=== PATIENT | female | born 1980 | race Caucasian/White ===

== ENCOUNTER 2016-03-31 18:48 | Emergency (ER) | payer OTHER ==
[2016-03-31] MEDS ORDERED: diazePAM 5 MG TABLET PO STA (20:42)
[2016-03-31] MEDS ORDERED: diazePAM 5 MG TABLET PO ONE (20:47)
== END 2016-03-31 20:55 | disposition home or self-care (01) ==
DX: S81.812A Laceration without foreign body, left lower leg, initial encounter (principal); M54.5 Low back pain; W08.XXXA Fall from other furniture, initial encounter; Y93.89 Activity, other specified; Z86.718 Personal history of other venous thrombosis and embolism; Z87.891 Personal history of nicotine dependence
CPT/HCPCS: 12002; 99283; A9270

== ENCOUNTER 2016-04-08 09:44 | Outpatient (CLI) | payer OTHER ==
[2016-04-08] MEDS ORDERED: IOPAMIDOL-300 100 ML VIAL IVP ONE (10:36)
== END 2016-04-08 09:45 | disposition home or self-care (01) ==
DX: R31.9 Hematuria, unspecified (principal); R93.41 Abnormal radiologic findings on diagnostic imaging of renal pelvis, ureter, or bladder
CPT/HCPCS: 74178; Q9967

== ENCOUNTER 2016-04-11 | Outpatient (CLI) | payer OTHER | END 2016-04-11 19:52 | disposition critical access hospital (66) | CPT/HCPCS: A0425; A0429 ==

== ENCOUNTER 2016-04-11 20:04 | Emergency (ER) | payer OTHER ==
[2016-04-11] MEDS ORDERED: LIDOCAINE 1% 50 ML MDV SUBQ STA (20:45)
[2016-04-11] MEDS ORDERED: LIDOCAINE-MPF 1% 5 ML VIAL ONE (20:48)
[2016-04-11] MEDS ORDERED: ONDANSETRON 4 MG/2 ML VIAL IVP STA (21:33)
[2016-04-11] MEDS ORDERED: ONDANSETRON 4 MG/2 ML VIAL ONE (21:56)
[2016-04-11] MEDS ORDERED: IOPAMIDOL-300 100 ML VIAL IVP ONE (22:03)
[2016-04-11] MEDS ORDERED: PROMETHAZINE INJ 12.5 MG in SODIUM CHLORIDE 0.9% 50 ML IV STA (23:46)
[2016-04-11] MEDS ORDERED: HYDROmorphone 1 MG/ML SYRINGE IVP STA (23:46)
[2016-04-11] MEDS ORDERED: HYDROmorphone 1 MG/ML SYRINGE ONE (23:51)
[2016-04-11] MEDS ORDERED: PROMETHAZINE 25 MG/1 ML VIAL ONE (23:51)
== END 2016-04-12 00:50 | disposition home or self-care (01) ==
DX: S51.811A Laceration without foreign body of right forearm, initial encounter (principal); W19.XXXA Unspecified fall, initial encounter; Y92.009 Unspecified place in unspecified non-institutional (private) residence as the place of occurrence of the external cause; Z87.891 Personal history of nicotine dependence; R55 Syncope and collapse; S00.03XA Contusion of scalp, initial encounter; Z86.718 Personal history of other venous thrombosis and embolism; R10.12 Left upper quadrant pain
CPT/HCPCS: 12001; 36415; 70450; 71020; 72125; 74177; 80053; 80320; 83690; 84484; 84702; 85025; 93005; 93010; 96365; 96375; 99284; 99285; J1170; Q9967

== ENCOUNTER 2016-05-05 10:48 | Outpatient (CLI) | payer OTHER | END 2016-05-05 10:49 | disposition home or self-care (01) | DX: R30.0 Dysuria (principal) ==

== ENCOUNTER 2016-05-31 19:15 | Emergency (ER) | payer OTHER ==
[2016-05-31] MEDS ORDERED: ONDANSETRON 4 MG/2 ML VIAL IVP STA ×2 (19:39→21:00)
[2016-05-31] MEDS ORDERED: SODIUM CHLORIDE 0.9% 1,000 ML IV ONE ×2 (19:39→19:50)
[2016-05-31] MEDS ORDERED: HYDROmorphone 1 MG/ML SYRINGE IVP STA ×3 (19:39→20:37)
[2016-05-31] MEDS ORDERED: HYDROmorphone 1 MG/ML SYRINGE ONE ×2 (19:50→20:39)
[2016-05-31] MEDS ORDERED: ONDANSETRON 4 MG/2 ML VIAL ONE ×2 (19:50→20:50)
[2016-05-31] MEDS ORDERED: IOPAMIDOL-300 100 ML VIAL IVP ONE (20:16)
[2016-05-31] MEDS ORDERED: KETOROLAC 60 MG/2 ML VIAL IVP STA ×2 (20:37)
[2016-05-31] MEDS ORDERED: KETOROLAC 30 MG/ML VIAL ONE (20:39)
[2016-05-31] MEDS ORDERED: LORazepam 2 MG/ML SYRINGE IVP STA (21:00)
[2016-05-31] MEDS ORDERED: LORazepam 2 MG/ML SYRINGE ONE (21:01)
[2016-05-31] MEDS ORDERED: LIDOCAINE PATCH 5% TOP STA (21:44)
[2016-05-31] MEDS ORDERED: LIDOCAINE PATCH 5% TOP ONE (21:46)
[2016-05-31] MEDS ORDERED: PROMETHAZINE INJ 25 MG in SODIUM CHLORIDE 0.9% 50 ML IV STA (21:52)
[2016-05-31] MEDS ORDERED: PROMETHAZINE 25 MG/1 ML VIAL ONE (21:55)
== END 2016-05-31 22:42 | disposition home or self-care (01) ==
DX: R07.9 Chest pain, unspecified (principal); M54.5 Low back pain; R10.9 Unspecified abdominal pain; Z96.0 Presence of urogenital implants; Z86.718 Personal history of other venous thrombosis and embolism; M79.7 Fibromyalgia; K21.9 Gastro-esophageal reflux disease without esophagitis; Z87.891 Personal history of nicotine dependence; R03.0 Elevated blood-pressure reading, without diagnosis of hypertension
CPT/HCPCS: 71275; 76705; 80053; 81003; 81025; 83690; 84484; 85025; 93005; 93010; 96361; 96365; 96375; 96376; 99284; 99285; A9270; J1170; J2060; Q9967

== ENCOUNTER 2016-08-30 19:26 | Emergency (ER) | payer OTHER ==
[2016-08-30] MEDS ORDERED: ONDANSETRON 4 MG/2 ML VIAL IVP STA (20:16)
[2016-08-30] MEDS ORDERED: SODIUM CHLORIDE 0.9% 1,000 ML IV ONE (20:16)
[2016-08-30 20:28] LABS: BASOPHILS % (AUTO) 0.3 %; EOSINOPHILS # (AUTO) 0.2 10^3/uL (0.0-0.7); HCT - HEMATOCRIT 41.9 % (37.0-47.0); HGB - HEMOGLOBIN 14.4 g/dL (12.0-16.0); LYMPHOCYTES # (AUTO) 2.6 10^3/uL (1.5-3.5); LYMPHOCYTES % (AUTO) 48.3 %; MEAN CORPUSCULAR HGB CONC 34.3 g/dL (32.0-36.0); MEAN CORPUSCULAR VOLUME 84.5 fL (81.0-99.0); MEAN PLATELET VOLUME 7.7 fL (7.9-10.8); MONOCYTES # (AUTO) 0.3 10^3/uL (0.0-1.0); MONOCYTES % (AUTO) 6.2 %; NEUTROPHILS # (AUTO) 2.3 10^3/uL (1.5-6.6); NEUTROPHILS % (AUTO) 42.2 %; NUCLEATED RED BLOOD CELLS AUTO 0.1 /100WBC; RED BLOOD COUNT 4.95 10^6/uL (4.20-5.40); RED CELL DISTRIBUTION WIDTH 12.6 % (12.0-15.0); UNCORRECTED WHITE BLOOD COUNT 5.4 x10^3/uL; WHITE BLOOD COUNT 5.4 x10^3/uL (4.8-10.8)
[2016-08-30 20:38] LABS: ALBUMIN/GLOBULIN RATIO 1.5 (1.0-2.2); BILIRUBIN,TOTAL 0.4 mg/dL (0.2-1.0); CALCIUM 9.8 mg/dL (8.5-10.3); CREATININE 0.6 mg/dL (0.4-1.0); POTASSIUM 4.1 mmol/L (3.5-5.0); TOTAL PROTEIN 7.9 g/dL (6.7-8.2)
[2016-08-30 20:40] LABS: BILIRUBIN,URINE NEGATIVE (NEGATIVE); PH,URINE 5.5 PH (5.0-7.5)
[2016-08-30 20:42] LABS: UA w/ MICROSCOPIC CHARGE YES
[2016-08-30 20:54] LABS: WBC,URINE 0-3 /HPF (0-5)
[2016-08-30 20:55] LABS: UR CULTURE IF IND INDICATED
--- NOTE | 2016-08-30 21:21 | XRAY Preliminary Report ---
Exam: XR Pelvis 1 View IMPRESSION: Neurostimulator on the right. [facility] SITE ID: [id number]
--- NOTE | 2016-08-30 21:23 | XRAY Report ---
EXAM: PELVIS RADIOGRAPHY EXAM DATE: 08/30/2016 09:07 PM. CLINICAL HISTORY: Pain where battery is implanted for stimulator. COMPARISON: None. TECHNIQUE: 1 view. FINDINGS: Bones: Normal. No fracture or bone lesion. Joints: The visualized hip, pubis symphysis, and sacroiliac joints are preserved. No subluxation. Soft Tissues: Neurostimulator projects over the right buttock and iliac crest, with intact lead exten ding to the L5 S1 level, with tip in the right lower sacrum. IMPRESSION: Neurostimulator on the right. [facility] Referring Provider Line: [phone] SITE ID: [id number]
[2016-08-30] MEDS ORDERED: CEPHALEXIN 250 MG CAPSULE PO STA (21:28)
[2016-08-30] MEDS ORDERED: KETOROLAC 15 MG/ML VIAL IVP STA (21:28)
[2016-08-30] MEDS ORDERED: PROMETHAZINE INJ 25 MG in SODIUM CHLORIDE 0.9% 50 ML IV STA (21:30)
--- NOTE | 2016-08-30 21:32 | ED Physician Documentation ---
PD HPI FEMALE - Stated complaint Stated Complaint: FEVER/VOMITING - Chief complaint Chief Complaint: Abd Pain - History obtained from History obtained from: Patient, Family - History of Present Illness Timing - onset: Yesterday Timing - details: Gradual onset, Still present Associated symptoms: Abdominal pain, Back pain, Dysuria Similar symptoms before: Work up / diagnostics, Treatment, Follow up Recently seen: Clinic - Additional information Additional information: Patient is a 35 year old female with multiple er visits and multiple co- morbidities who is presenting to the emergency for left sided flank pain and dysuria. patient states that she say her primary who diagnosed her with a uti and started the patient on macrobid. patient states that her symptoms have progressed and she now has flank pain. Patient states she took 1500mg of tylenol for pain with little relief. Review of Systems Constitutional: reports: Chills, Myalgias. denies: Fever Eyes: denies: Photophobia Ears: denies: Ear pain, Drainage/discharge Nose: denies: Rhinorrhea / runny nose, Congestion Throat: denies: Sore throat Respiratory: denies: Cough, Wheezing GI: reports: Abdominal Pain, Nausea, Vomiting : reports: Dysuria, Frequency Musculoskeletal: reports: Back pain. 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 : Chronic bladder infection, Kidney stones HEENT: None Psych: Depression, Bipolar disorder Musculoskeletal: Fibromyalgia, Chronic back pain Derm: None - Past Surgical History Past Surgical History: Yes Ortho: Other /GLUER AND WEDGER: section, Hysterectomy, Other HEENT: Tonsil/Adenoidectomy - Present Medications Home Medications: Ambulatory Orders Medication Instructions Recorded Confirmed Lamotrigine [Lamictal] 150 mg PO BID 11/04/12 05/25/16 Alprazolam [Xanax] 1 - 2 mg PO QPM PRN 10/29/14 05/25/16 Pregabalin [Lyrica] 225 mg PO BID 04/04/15 05/25/16 Esomeprazole Magnesium [Nexium] 40 mg ORAL DAILY 02/19/16 05/25/16 Modafinil 200 mg PO DAILY 05/25/16 05/25/16 Acetaminophen [Tylenol] 650 mg PO Q4HR PRN #0 tablet 05/26/16 Ciprofloxacin [Cipro] 500 mg PO BID 5 Days 05/26/16 Fluconazole 150 mg PO DAILY #2 tablet 05/26/16 HYDROmorphone [Dilaudid] 2 mg PO Q6HR PRN #10 tablet 05/26/16 Ketorolac [Toradol] 10 mg PO Q6H PRN 4 Days 05/26/16 Ondansetron Odt [Zofran Odt] 4 mg TL Q6HR PRN #10 tablet 05/26/16 Pregabalin [Lyrica] 25 mg PO BID capsule 05/26/16 Pregabalin [Lyrica] 200 mg PO BID capsule 05/26/16 Vitamin [Trinatal Rx 1] 1 tab PO DAILY tablet 05/26/16 Lidocaine Patch 5% [Lidoderm Patch] 1 each TOP DAILY #10 patch 05/31/16 Meloxicam [Mobic] 7.5 mg PO BIDWM PRN #15 tablet 05/31/16 Cephalexin [Keflex] 500 mg PO TID #21 capsule 08/30/16 - Allergies Allergies/Adverse Reactions: Allergies Allergy/AdvReac Type Severity Reaction Status Date / Time amoxicillin trihydrate * Allergy Nausea Verified 08/30/16 19:36 [From Augmentin] azithromycin [From Zithromax] Allergy Anaphylaxis Verified 08/30/16 19:36 codeine [Codeine] Allergy Itching Verified 08/30/16 19:36 levofloxacin [From Levaquin] Allergy vomiting Verified 08/30/16 19:36 potassium clavulanate * Allergy Nausea Verified 08/30/16 19:36 [From Augmentin] Sulfa (Sulfonamide Allergy Itching Verified 08/30/16 19:36 Antibiotics) bactrim AdvReac Rash Uncoded 08/30/16 19:36 - Social History Does the pt smoke?: No Smoking Status: Former smoker Does the pt drink ETOH?: Yes Does the pt have substance abuse?: No - Immunizations Immunizations are current?: Yes - POLST Patient has POLST: No PD ED PE NORMAL - Vitals Vital signs reviewed: Yes - General General: Alert and oriented X 3, No acute distress, Well developed/nourished - HEENT HEENT: Atraumatic, PERRL - Neck Neck: Supple, no meningeal sign - Cardiac Cardiac: No murmur - Respiratory Respiratory: No respiratory distress, Clear bilaterally - Abdomen Abdomen: Soft, Non distended - Derm Derm: Normal color, Warm and dry, No rash - Extremities Extremities: No deformity, No tenderness to palpate - Neuro Neuro: Alert and oriented X 3, No motor deficit, No sensory deficit, Normal speech - Psych Psych: Normal mood, Normal affect PD ED PE EXPANDED - Back Back: CVA TTP left, Other (surgical scar over right lower lateral back from device implantation, no signs of acute infection) Results - Vitals Vitals: Vital Signs - 24 hr 08/30/16 08/30/16 19:34 21:48 Temperature 36.5 C 36.7 C Heart Rate 111 H 98 Respiratory 20 18 Rate Blood Pressure 140/96 H 128/85 H O2 Saturation 97 95 Oxygen O2 Source Room air - Labs Labs: Laboratory Tests 08/30/16 08/30/16 08/30/16 19:55 20:12 20:12 WBC 5.4 RBC 4.95 Hgb 14.4 Hct 41.9 MCV 84.5 MCH 29.0 MCHC 34.3 RDW 12.6 Plt Count 174 MPV 7.7 L Neut # 2.3 Lymph # 2.6 [place] # 0.3 Eos # 0.2 Baso # 0.0 Absolute Nucleated RBC 0.01 Nucleated RBCs 0.1 Sodium 139 Potassium 4.1 Chloride 106 Carbon Dioxide 25 Anion Gap 8.0 BUN 18 Creatinine 0.6 Estimated GFR (MDRD) 114 Glucose 100 Calcium 9.8 Total Bilirubin 0.4 AST 147 H ALT 130 H Alkaline Phosphatase 63 Total Protein 7.9 Albumin 4.8 Globulin 3.1 Albumin/Globulin Ratio 1.5 Lipase 40 HCG, Quant Urine Color RED/BLOODY Urine Clarity BLOODY Urine pH 5.5 Ur Specific [place] >=1.030 H Urine Protein TRACE Urine Glucose (UA) NEGATIVE Urine Ketones NEGATIVE Urine Occult Blood LARGE H Urine Nitrite NEGATIVE Urine Bilirubin NEGATIVE Urine Urobilinogen 0.2 (NORMAL) Ur Leukocyte Esterase NEGATIVE Urine RBC TNTC H Urine WBC 0-3 Ur Squamous Epith Cells RARE Squamous Urine Bacteria Moderate H Ur Microscopic Review INDICATED Urine Culture Comments INDICATED 08/30/16 20:12 WBC RBC Hgb Hct MCV MCH MCHC RDW Plt Count MPV Neut # Lymph # [place] # Eos # Baso # Absolute Nucleated RBC Nucleated RBCs Sodium Potassium Chloride Carbon Dioxide Anion Gap BUN Creatinine Estimated GFR (MDRD) Glucose Calcium Total Bilirubin AST ALT Alkaline Phosphatase Total Protein Albumin Globulin Albumin/Globulin Ratio Lipase HCG, Quant < 0.60 Urine Color Urine Clarity Urine pH Ur Specific [place] Urine Protein Urine Glucose (UA) Urine Ketones Urine Occult Blood Urine Nitrite Urine Bilirubin Urine Urobilinogen Ur Leukocyte Esterase Urine RBC Urine WBC Ur Squamous Epith Cells Urine Bacteria Ur Microscopic Review Urine Culture Comments - Rads (name of study) hip x-ray Radiology: Final report received (battery pack in place, no acute abnormality) PD MEDICAL DECISION MAKING - ED course Complexity details: reviewed old records, reviewed results, re-evaluated patient , considered differential, d/w patient, d/w family ED course: Patient was seen and examined at bedside. IV access was gained and labs were drawn. urine was collected. patient was started on iv fluids. patient was treated with phenagren. Patient was sent for imaging which showed no abnormalities. Patient's diagnostics where within normal limits aside from hematuria, which is positive on almost all of the patient's urines. Patient was changed to keflex for pyelonephritis. Patient had no vomiting while in the emergency department. Patient was stable for discharge with outpatient follow up. Departure - Departure Disposition: 01 Home, Self Care Clinical Impression: Pyelonephritis Condition: Good Instructions: Pyelonephritis Dc Follow-Up: CORY RODRIGUEZ [Primary Care Provider] - Within 3 Days Prescriptions: Cephalexin [Keflex] 500 mg PO TID #21 capsule Comments: Your symptoms today are being caused by a urinary tract infection that has likely traveled to your kidneys. You have had your first dose of antibiotics tonight. You will need to take it three times a day for the next week. You should call your doctor tomorrow to schedule a follow up appointment. You may return to the emergency department at any time for new, worsening or uncontrollable symptoms. Discharge Date/Time: 08/30/16 22:10
[2016-08-30] MEDS ORDERED: KETOROLAC 30 MG/ML VIAL ONE (21:34)
[2016-08-30] MEDS ORDERED: PROMETHAZINE 25 MG/1 ML VIAL ONE (21:34)
[2016-08-30] MEDS ORDERED: CEPHALEXIN 250 MG CAPSULE PO ONE (21:35)
[2016-08-30 21:52] VITALS: BP 128/85
== END 2016-08-30 22:10 | disposition home or self-care (01) ==
LOC: ED 19:26
DX: N12 Tubulo-interstitial nephritis, not specified as acute or chronic (principal); Z87.891 Personal history of nicotine dependence
CPT/HCPCS: 36415; 72170; 80053; 81001; 83690; 84702; 85025; 87077; 87086; 87181; 96361; 96365; 96375; 99284; A9270; 81003

== ENCOUNTER 2016-11-10 13:11 | Outpatient (CLI) | payer OTHER | END 2016-11-10 13:12 | disposition critical access hospital (66) | LOC: EMS 13:11 | PROVIDERS: ATTEND Surgery | DX: R55 Syncope and collapse (principal) | CPT/HCPCS: A0425; A0429 ==

== ENCOUNTER 2016-11-10 13:33 | Emergency (ER) | payer OTHER ==
[2016-11-10] MEDS ORDERED: KETOROLAC 60 MG/2 ML VIAL IM STA (13:46)
[2016-11-10] MEDS ORDERED: ACETAMINOPHEN 325 MG TABLET PO STA (13:46)
[2016-11-10] MEDS ORDERED: ONDANSETRON ODT 4 MG TABLET TL STA (13:46)
--- NOTE | 2016-11-10 13:49 | ED Physician Documentation ---
PD HPI SYNCOPE - Stated complaint Stated Complaint: NEAR SYNCOPE - History obtained from History obtained from: Patient - History of Present Illness Witnessed: Unwitnessed Preceding symptoms: Nausea / vomiting (felt ill without vomiting, but nausea and did not have breakfast.), Light headed, Generalized weakness. No: Headache , Dyspnea Associated symptoms: Headache. No: Seizure, Incontinant of urine Contributing factors: Just stood up (she is at new job for the past week, and she was working longer today (usually just 3-4 hours), so felt tired, and was feeling ill this morning with some nausea. Did not eat. Was at work and felt weak, stood up and got lightheaded, then fell against wall, struck head lightly. Has headache. Did not pass out completely.). No: Recent med change, Decreased PO intake Similar symptoms before: Has not had sx before Recently seen: Not recently seen Review of Systems Constitutional: denies: Fever, Chills Nose: denies: Rhinorrhea / runny nose, Congestion Throat: denies: Sore throat Respiratory: denies: Cough GI: reports: Nausea. denies: Abdominal Pain, Vomiting, Diarrhea : denies: Dysuria, Frequency Neurologic: reports: Generalized weakness, Head injury (with headache after bumping head.). 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 : Chronic bladder infection, Kidney stones HEENT: None Psych: Depression, Bipolar disorder Musculoskeletal: Fibromyalgia, Chronic back pain Derm: None - Past Surgical History Past Surgical History: Yes Ortho: Other /BOAT OUTFITTING SUPERVISOR: section, Hysterectomy, Other HEENT: Tonsil/Adenoidectomy - Present Medications Home Medications: Ambulatory Orders Medication Instructions Recorded Confirmed Lamotrigine [Lamictal] 150 mg PO BID 11/04/12 11/10/16 Alprazolam [Xanax] 1 - 2 mg PO DAILY 10/29/14 11/10/16 Pregabalin [Lyrica] 225 mg PO BID 04/04/15 11/10/16 Esomeprazole Magnesium [Nexium] 40 mg ORAL DAILY 02/19/16 11/10/16 Acetaminophen [Tylenol] 650 mg PO Q4HR PRN #0 tablet 05/26/16 11/10/16 Estrogens, Conjugated [Premarin] 0.9 mg PO DAILY 11/10/16 11/10/16 Ondansetron Odt [Zofran] 4 mg TL Q6H PRN #15 tablet 11/10/16 - Allergies Allergies/Adverse Reactions: Allergies Allergy/AdvReac Type Severity Reaction Status Date / Time amoxicillin trihydrate * Allergy Nausea Verified 08/30/16 19:36 [From Augmentin] azithromycin [From Zithromax] Allergy Anaphylaxis Verified 08/30/16 19:36 codeine [Codeine] Allergy Itching Verified 08/30/16 19:36 levofloxacin [From Levaquin] Allergy vomiting Verified 08/30/16 19:36 potassium clavulanate * Allergy Nausea Verified 08/30/16 19:36 [From Augmentin] Sulfa (Sulfonamide Allergy Itching Verified 08/30/16 19:36 Antibiotics) bactrim AdvReac Rash Uncoded 08/30/16 19:36 - Social History Does the pt smoke?: No Smoking Status: Former smoker Does the pt drink ETOH?: Yes Does the pt have substance abuse?: No - Immunizations Immunizations are current?: Yes - POLST Patient has POLST: No PD ED PE NORMAL - Vitals Vital signs reviewed: Yes - General General: Alert and oriented X 3, Well developed/nourished, Other (appears uncomfortable due to headache. ) - HEENT HEENT: Other (slightly tender over left pariteal/temporal area. No noted deformity. ) - Neck Neck: Supple, no meningeal sign, No bony TTP, No adenopathy - Cardiac Cardiac: RRR, No murmur - Respiratory Respiratory: Clear bilaterally - Abdomen Abdomen: Soft, Non tender - Derm Derm: Normal color, Warm and dry - Extremities Extremities: No deformity, No tenderness to palpate, Normal ROM s pain, No edema , No calf tenderness / cord - Neuro Neuro: Alert and oriented X 3, cipher expert 2-12 intact, No motor deficit, No sensory deficit, Normal speech - Psych Psych: Normal mood, Normal affect Results - Vitals Vitals: Vital Signs - 24 hr 11/10/16 11/10/16 13:34 16:23 Heart Rate 110 H 98 Respiratory 16 18 Rate Blood Pressure 157/85 H 145/94 H O2 Saturation 96 97 Oxygen O2 Source Room air - Labs Labs: Laboratory Tests 11/10/16 11/10/16 11/10/16 14:00 14:00 16:12 WBC 4.6 L RBC 4.90 Hgb 14.0 Hct 40.6 MCV 82.8 MCH 28.5 MCHC 34.5 RDW 12.9 Plt Count 196 MPV 7.3 L Neut # 2.0 Lymph # 2.2 [place] # 0.2 Eos # 0.1 Baso # 0.0 Absolute Nucleated RBC 0.01 Nucleated RBCs 0.1 Sodium 139 Potassium 3.9 Chloride 104 Carbon Dioxide 25 Anion Gap 10.0 BUN 17 Creatinine 0.5 Estimated GFR (MDRD) 140 Glucose 130 H Calcium 9.4 Magnesium 2.0 Total Bilirubin 0.6 AST 92 H ALT 77 H Alkaline Phosphatase 68 Total Protein 7.9 Albumin 4.8 Globulin 3.1 Albumin/Globulin Ratio 1.5 Lipase 35 Urine Color YELLOW Urine Clarity CLEAR Urine pH 6.5 Ur Specific [place] 1.010 Urine Protein NEGATIVE Urine Glucose (UA) NEGATIVE Urine Ketones NEGATIVE Urine Occult Blood NEGATIVE Urine Nitrite NEGATIVE Urine Bilirubin NEGATIVE Urine Urobilinogen 0.2 (NORMAL) Ur Leukocyte Esterase NEGATIVE Ur Microscopic Review NOT INDICATED Urine Culture Comments NOT INDICATED - Rads (name of study) head CT Radiology: Prelim report reviewed, EMP read contemporaneously PD MEDICAL DECISION MAKING - ED course Complexity details: considered differential (seems like postural near syncope. She had not felt well going to work and was lightheaded prior. She had light bump of head but significant headache that took repeat meds, so got CT to ensure no ICH. This was okay. She did feel improved after repeat meds. Has had some migraine headaches in the past. Consider the injury may have triggered migraine-like headache. ), d/w patient Departure - Departure Disposition: 01 Home, Self Care Clinical Impression: Near syncope Nausea & vomiting Qualifiers: Vomiting type: unspecified Vomiting Intractability: non-intractable Qualified Code(s): R11.2 - Nausea with vomiting, unspecified Condition: Stable Record reviewed to determine appropriate education?: Yes Instructions: ED Nausea Vomiting, ED Near Syncope Unkn Prescriptions: Ondansetron Odt [Zofran] 4 mg TL Q6H PRN #15 tablet PRN Reason: Nausea / Vomiting Comments: Small frequent fluids. Ondansetron if needed for nausea. Tylenol or ibuprofen if needed for pains. Rest today and tomorrow. Recheck if consistent headaches or nausea subsequently. Okay to resume work after couple of days feeling better. Forms: Activity restrictions Discharge Date/Time: 11/10/16 17:35
[2016-11-10] MEDS ORDERED: ACETAMINOPHEN 325 MG TABLET PO ONE (14:00)
[2016-11-10] MEDS ORDERED: ONDANSETRON ODT 4 MG TABLET ONE (14:00)
[2016-11-10] MEDS ORDERED: KETOROLAC 60 MG/2 ML VIAL ONE (14:01)
[2016-11-10 14:21] LABS: ALBUMIN/GLOBULIN RATIO 1.5 (1.0-2.2); BILIRUBIN,TOTAL 0.6 mg/dL (0.2-1.0); CALCIUM 9.4 mg/dL (8.5-10.3); CREATININE 0.5 mg/dL (0.4-1.0); POTASSIUM 3.9 mmol/L (3.5-5.0); TOTAL PROTEIN 7.9 g/dL (6.7-8.2)
[2016-11-10 14:31] LABS: BASOPHILS % (AUTO) 0.3 %; EOSINOPHILS # (AUTO) 0.1 10^3/uL (0.0-0.7); EOSINOPHILS % (AUTO) 1.8 %; HCT - HEMATOCRIT 40.6 % (37.0-47.0); LYMPHOCYTES # (AUTO) 2.2 10^3/uL (1.5-3.5); LYMPHOCYTES % (AUTO) 48.9 %; MEAN CORPUSCULAR HEMOGLOBIN 28.5 pg (27.0-31.0); MEAN CORPUSCULAR HGB CONC 34.5 g/dL (32.0-36.0); MEAN CORPUSCULAR VOLUME 82.8 fL (81.0-99.0); MEAN PLATELET VOLUME 7.3 fL (7.9-10.8); MONOCYTES # (AUTO) 0.2 10^3/uL (0.0-1.0); MONOCYTES % (AUTO) 4.8 %; NEUTROPHILS % (AUTO) 44.2 %; NUCLEATED RED BLOOD CELLS AUTO 0.1 /100WBC; RED CELL DISTRIBUTION WIDTH 12.9 % (12.0-15.0); UNCORRECTED WHITE BLOOD COUNT 4.6 x10^3/uL; WHITE BLOOD COUNT 4.6 x10^3/uL (4.8-10.8)
[2016-11-10] MEDS ORDERED: HYDROmorphone 1 MG/ML SYRINGE IM STA ×2 (14:41→15:59)
[2016-11-10] MEDS ORDERED: PROMETHAZINE 25 MG/1 ML VIAL IM STA ×2 (14:42→15:59)
[2016-11-10] MEDS ORDERED: HYDROmorphone 1 MG/ML SYRINGE ONE ×2 (14:49→16:11)
[2016-11-10] MEDS ORDERED: PROMETHAZINE 25 MG/1 ML VIAL ONE ×2 (14:49→16:11)
[2016-11-10 16:21] LABS: BILIRUBIN,URINE NEGATIVE (NEGATIVE); PH,URINE 6.5 PH (5.0-7.5)
[2016-11-10 16:24] VITALS: BP 145/94
[2016-11-10 16:27] LABS: UA CHARGE (STRIP ONLY) YES; UR CULTURE IF IND NOT INDICATED
--- NOTE | 2016-11-10 16:36 | CT Preliminary Report ---
Exam: CT Head W/O IMPRESSION: Normal head CT. [facility] SITE ID: [id number]
--- NOTE | 2016-11-10 16:38 | CT Report ---
EXAM: CT HEAD EXAM DATE: 11/10/2016 04:14 PM. CLINICAL HISTORY: Fell and struck head on wall. COMPARISON: 04/11/2016. TECHNIQUE: Multiaxial CT images were obtained from the foramen magnum to the vertex. IV contrast: Non e. Reformats: Coronal. In accordance with CT protocol optimization, one or more of the following dose reduction techniques w ere utilized for this exam: automated exposure control, adjustment of mA and/or KV based on patient s ize, or use of iterative reconstructive technique. FINDINGS: Parenchyma: No intraparenchymal hemorrhage. No evidence of mass, midline shift, or CT findings of inf arction. Jackson-white differentiation is distinct. Extraaxial Spaces: Normal for age. No subdural or epidural collections identified. Ventricles: Normal in size and position. Sinuses: Imaged paranasal sinuses, orbits, and mastoids show no significant abnormality. Bones: No evidence of fracture or calvarial defect. Other: None. IMPRESSION: Normal head CT. [facility] Referring Provider Line: [phone] SITE ID: [id number]
== END 2016-11-10 17:35 | disposition home or self-care (01) ==
LOC: ED 13:33
DX: R55 Syncope and collapse (principal); R11.2 Nausea with vomiting, unspecified; R51 Headache; Z87.891 Personal history of nicotine dependence
CPT/HCPCS: 1040M; 36415; 70450; 80053; 81003; 83690; 83735; 85025; 93005; 96372; 99284; A9270; J1170; Q0162; 81001; 87086

== ENCOUNTER 2016-12-30 20:21 | Emergency (ER) | payer OTHER ==
--- NOTE | 2016-12-30 20:59 | ED Physician Documentation ---
PD HPI ABD PAIN - Stated complaint Stated Complaint: ABD PAIN - Chief complaint Chief Complaint: Abd Pain - History obtained from History obtained from: Patient - History of Present Illness Timing - onset: Enter time (12:00 (noon)), Today Timing - duration: Hours Timing - details: Gradual onset, Waxing and waning Pain level now: 8 Quality: Pain Location: RUQ, Periumbilical Radiation: Right flank Improved by: Other (no ameliorating factors) Worsened by: Other (no exacerbating factors) Associated symptoms: Nausea, Constipation, Dysuria. No: Fever Similar symptoms before: Other (patient says some of her symptoms are similar to previous UTI/kidney infection, although others are not similar to previous) - Additional information Additional information: 11th [facility] ED visit over past 12 months, various chief complaints and includes one admission for pyelonephritis. Some of these visits' notes reflect similar presentation to payalleonor's ED visit. Review of Systems Constitutional: denies: Fever, Chills, Sweats Cardiac: reports: Reviewed and negative Respiratory: reports: Reviewed and negative GI: reports: Abdominal Pain, Nausea, Constipation. 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 : Chronic bladder infection, Kidney stones HEENT: None Psych: Depression, Bipolar disorder Musculoskeletal: Fibromyalgia, Chronic back pain Derm: None - Past Surgical History Past Surgical History: Yes Ortho: Other /SPECIAL EDUCATION ASSISTANT: section, Hysterectomy, Other HEENT: Tonsil/Adenoidectomy - Present Medications Home Medications: Ambulatory Orders Medication Instructions Recorded Confirmed Lamotrigine [Lamictal] 150 mg PO BID 11/04/12 12/30/16 Alprazolam [Xanax] 1 - 2 mg PO DAILY 10/29/14 12/30/16 Pregabalin [Lyrica] 225 mg PO BID 04/04/15 12/30/16 Esomeprazole Magnesium [Nexium] 40 mg ORAL DAILY 02/19/16 12/30/16 Acetaminophen [Tylenol] 650 mg PO Q4HR PRN #0 tablet 05/26/16 12/30/16 Estrogens, Conjugated [Premarin] 0.9 mg PO DAILY 11/10/16 12/30/16 Ciprofloxacin HCl [Cipro] 500 mg PO BID #13 tablet 12/31/16 Fluconazole [Diflucan] 150 mg PO ONCE #1 tablet 12/31/16 oxyCODONE/ACET 5/325 [Percocet 5 1 each PO Q6H PRN #14 tablet 12/31/16 mg/325 mg] - Allergies Allergies/Adverse Reactions: Allergies Allergy/AdvReac Type Severity Reaction Status Date / Time amoxicillin trihydrate * Allergy Nausea Verified 12/30/16 21:10 [From Augmentin] azithromycin [From Zithromax] Allergy Anaphylaxis Verified 12/30/16 21:10 codeine [Codeine] Allergy Itching Verified 12/30/16 21:10 levofloxacin [From Levaquin] Allergy vomiting Verified 12/30/16 21:10 potassium clavulanate * Allergy Nausea Verified 12/30/16 21:10 [From Augmentin] Sulfa (Sulfonamide Allergy Itching Verified 12/30/16 21:10 Antibiotics) bactrim AdvReac Rash Uncoded 12/30/16 21:10 - Social History Does the pt smoke?: No Smoking Status: Former smoker Does the pt drink ETOH?: Yes Does the pt have substance abuse?: No - Immunizations Immunizations are current?: Yes - POLST Patient has POLST: No PD ED PE NORMAL - Vitals Vital signs reviewed: Yes - General General: Alert and oriented X 3, No acute distress, Well developed/nourished - Cardiac Cardiac: RRR, No murmur - Respiratory Respiratory: No respiratory distress, Clear bilaterally - Abdomen Abdomen: Soft, Non distended, Other (mild RUQ tenderness without rebound or guarding) - Back Back: Other (mild bilateral CVA tenderness) - Derm Derm: Normal color, Warm and dry Results - Vitals Vitals: Vital Signs - 24 hr 12/30/16 12/30/16 12/31/16 20:38 22:16 00:12 Temperature 36.6 C Heart Rate 100 101 H 100 Respiratory 18 16 Rate Blood Pressure 144/97 H 134/98 H 144/101 H O2 Saturation 96 93 94 12/31/16 01:13 Temperature Heart Rate 92 Respiratory 16 Rate Blood Pressure 122/75 O2 Saturation 100 Oxygen O2 Source Room air - Labs Labs: Microbiology 12/30/16 20:50 Urine Culture - Preliminary Urine,Clean Catch Escherichia Coli Laboratory Tests 12/30/16 12/30/16 12/30/16 20:50 21:20 21:20 WBC 11.8 H RBC 4.86 Hgb 13.7 Hct 40.4 MCV 83.1 MCH 28.3 MCHC 34.0 RDW 12.8 Plt Count 175 MPV 7.5 L Neut # 7.4 H Lymph # 3.7 H [place] # 0.5 Eos # 0.1 Baso # 0.1 Absolute Nucleated RBC 0.00 Nucleated RBC % 0.0 Sodium 139 Potassium 4.1 Chloride 106 Carbon Dioxide 24 Anion Gap 9.0 BUN 18 Creatinine 0.5 Estimated GFR (MDRD) 140 Glucose 107 H Calcium 9.1 Total Bilirubin 0.7 AST 40 ALT 45 Alkaline Phosphatase 63 Total Protein 7.4 Albumin 4.3 Globulin 3.1 Albumin/Globulin Ratio 1.4 Lipase 31 Urine Color ORANGE Urine Clarity INTERFERENCES Urine pH Ur Specific [place] Urine Protein Urine Glucose (UA) Urine Ketones Urine Occult Blood Urine Nitrite Urine Bilirubin Urine Urobilinogen Ur Leukocyte Esterase Urine RBC TNTC H Urine WBC >25 H Ur Squamous Epith Cells FEW Squamous Urine Bacteria Many H Ur Microscopic Review INDICATED Urine Culture Comments INDICATED Urine HCG, Qual - Rads (name of study) RUQ US Radiology: Prelim report reviewed, See rad report PD MEDICAL DECISION MAKING - ED course Complexity details: reviewed old records, reviewed results, re-evaluated patient , considered differential, d/w patient ED course: UA s/o UTI, remainder of her w/u unremarkable. Considering the recurrent nature of her UTI and h/o pyelonephritis, treated with Cipro. We discussed her listed levofloxacin allergy, and she says this is not a true allergy but that it tends to cause yeast infection (which generally has responded in the past to diflucan x 2 doses, and thus given Diflucan in ED and rx for a second dose). Departure - Departure Disposition: 01 Home, Self Care Clinical Impression: Urinary tract infectious disease Condition: Good Instructions: ED UTI Cystitis Female Follow-Up: ABI ANNE MD [Primary Care Provider] - Prescriptions: Ciprofloxacin HCl [Cipro] 500 mg PO BID #13 tablet Fluconazole [Diflucan] 150 mg PO ONCE #1 tablet oxyCODONE/ACET 5/325 [Percocet 5 mg/325 mg] 1 each PO Q6H PRN #14 tablet PRN Reason: Pain Discharge Date/Time: 12/31/16 01:14
[2016-12-30] MEDS ORDERED: SODIUM CHLORIDE FLUSH 0.9% 10 ML SYRINGE IVP ONE (21:05)
[2016-12-30 21:27] LABS: UA w/ MICROSCOPIC CHARGE YES
[2016-12-30 21:28] LABS: WBC,URINE >25 /HPF (0-5)
[2016-12-30 21:29] LABS: UR CULTURE IF IND INDICATED
[2016-12-30] MEDS ORDERED: PROMETHAZINE INJ 12.5 MG in SODIUM CHLORIDE 0.9% 50 ML IV STA (21:30)
[2016-12-30] MEDS ORDERED: KETOROLAC 60 MG/2 ML VIAL IVP STA (21:30)
[2016-12-30] MEDS ORDERED: HYDROmorphone 1 MG/ML CARPUJECT IVP STA (21:30)
[2016-12-30 21:32] LABS: BASOPHILS # (AUTO) 0.1 10^3/uL (0.0-0.1); BASOPHILS % (AUTO) 0.5 %; EOSINOPHILS # (AUTO) 0.1 10^3/uL (0.0-0.7); EOSINOPHILS % (AUTO) 0.8 %; HCT - HEMATOCRIT 40.4 % (37.0-47.0); HGB - HEMOGLOBIN 13.7 g/dL (12.0-16.0); LYMPHOCYTES # (AUTO) 3.7 10^3/uL (1.5-3.5); LYMPHOCYTES % (AUTO) 31.7 %; MEAN CORPUSCULAR HEMOGLOBIN 28.3 pg (27.0-31.0); MEAN CORPUSCULAR VOLUME 83.1 fL (81.0-99.0); MEAN PLATELET VOLUME 7.5 fL (7.9-10.8); MONOCYTES # (AUTO) 0.5 10^3/uL (0.0-1.0); MONOCYTES % (AUTO) 4.2 %; NEUTROPHILS # (AUTO) 7.4 10^3/uL (1.5-6.6); NEUTROPHILS % (AUTO) 62.8 %; RED BLOOD COUNT 4.86 10^6/uL (4.20-5.40); RED CELL DISTRIBUTION WIDTH 12.8 % (12.0-15.0); UNCORRECTED WHITE BLOOD COUNT 11.8 x10^3/uL; WHITE BLOOD COUNT 11.8 x10^3/uL (4.8-10.8)
[2016-12-30] MEDS ORDERED: HYDROmorphone 1 MG/ML SYRINGE ONE (21:41)
[2016-12-30] MEDS ORDERED: PROMETHAZINE 25 MG/1 ML VIAL ONE (21:41)
[2016-12-30] MEDS ORDERED: KETOROLAC 30 MG/ML VIAL ONE (21:42)
[2016-12-30 21:44] LABS: ALBUMIN/GLOBULIN RATIO 1.4 (1.0-2.2); BILIRUBIN,TOTAL 0.7 mg/dL (0.2-1.0); CALCIUM 9.1 mg/dL (8.5-10.3); CREATININE 0.5 mg/dL (0.4-1.0); POTASSIUM 4.1 mmol/L (3.5-5.0); TOTAL PROTEIN 7.4 g/dL (6.7-8.2)
--- NOTE | 2016-12-30 23:10 | Ultrasound Preliminary Report ---
Exam: US Abdomen Limited IMPRESSION: 1. Gallbladder appears normal. 2. Fatty liver. [facility] SITE ID: [id number]
--- NOTE | 2016-12-30 23:10 | Ultrasound Report ---
EXAM: ABDOMEN ULTRASOUND LIMITED, RUQ EXAM DATE: 12/30/2016 10:42 PM. CLINICAL HISTORY: Right upper quadrant pain. COMPARISON: 05/25/2016 CT, 05/31/2016 ultrasound. TECHNIQUE: Real-time scanning was performed with static images obtained. FINDINGS: Liver: Echogenic without gross focal abnormality seen. Main portal vein flow: Hepatopetal. Gallbladder: Normal. No stones, wall thickening, or sonographic Baum's sign. Biliary System: CBD measures 5 mm. No intrahepatic or extrahepatic ductal dilatation. Other: None. IMPRESSION: 1. Gallbladder appears normal. 2. Fatty liver. [facility] Referring Provider Line: [phone] SITE ID: [id number]
[2016-12-31] MEDS ORDERED: PROMETHAZINE INJ 12.5 MG in SODIUM CHLORIDE 0.9% 50 ML IV STA (00:26)
[2016-12-31] MEDS ORDERED: HYDROmorphone 1 MG/ML CARPUJECT IVP STA (00:26)
[2016-12-31] MEDS ORDERED: PROMETHAZINE 25 MG/1 ML VIAL ONE (00:29)
[2016-12-31] MEDS ORDERED: HYDROmorphone 1 MG/ML SYRINGE ONE (00:29)
[2016-12-31] MEDS ORDERED: SODIUM CHLORIDE FLUSH 0.9% 10 ML SYRINGE IVP ONE (00:31)
[2016-12-31] MEDS ORDERED: FLUCONAZOLE 100 MG TABLET PO STA (00:47)
[2016-12-31] MEDS ORDERED: CIPROFLOXACIN 250 MG TABLET PO STA (00:47)
[2016-12-31] MEDS ORDERED: FLUCONAZOLE 100 MG TABLET ONE (00:57)
[2016-12-31] MEDS ORDERED: CIPROFLOXACIN 250 MG TABLET PO ONE (00:57)
[2016-12-31 01:14] VITALS: BP 122/75
== END 2016-12-31 01:14 | disposition home or self-care (01) ==
LOC: ED 20:21
DX: N39.0 Urinary tract infection, site not specified (principal); Z87.440 Personal history of urinary (tract) infections; Z87.442 Personal history of urinary calculi; Z86.718 Personal history of other venous thrombosis and embolism; Z87.891 Personal history of nicotine dependence
CPT/HCPCS: 36415; 76705; 80053; 81001; 81025; 83690; 85025; 87086; 87181; 96365; 96375; 96376; 99284; A9270; J1170; J7040; 81003

== ENCOUNTER 2017-01-13 16:55 | Emergency (ER) | payer OTHER ==
[2017-01-13] MEDS ORDERED: SODIUM CHLORIDE 0.9% 1,000 ML IV ONE (17:11)
[2017-01-13 17:29] LABS: BASOPHILS % (AUTO) 0.4 %; EOSINOPHILS # (AUTO) 0.1 10^3/uL (0.0-0.7); EOSINOPHILS % (AUTO) 1.3 %; HCT - HEMATOCRIT 44.5 % (37.0-47.0); LYMPHOCYTES # (AUTO) 4.1 10^3/uL (1.5-3.5); LYMPHOCYTES % (AUTO) 48.4 %; MEAN CORPUSCULAR HEMOGLOBIN 28.1 pg (27.0-31.0); MEAN CORPUSCULAR HGB CONC 33.7 g/dL (32.0-36.0); MEAN CORPUSCULAR VOLUME 83.2 fL (81.0-99.0); MEAN PLATELET VOLUME 7.5 fL (7.9-10.8); MONOCYTES # (AUTO) 0.3 10^3/uL (0.0-1.0); MONOCYTES % (AUTO) 3.5 %; NEUTROPHILS # (AUTO) 3.9 10^3/uL (1.5-6.6); NEUTROPHILS % (AUTO) 46.4 %; RED BLOOD COUNT 5.34 10^6/uL (4.20-5.40); RED CELL DISTRIBUTION WIDTH 12.7 % (12.0-15.0); UNCORRECTED WHITE BLOOD COUNT 8.4 x10^3/uL; WHITE BLOOD COUNT 8.4 x10^3/uL (4.8-10.8)
[2017-01-13] MEDS ORDERED: KETOROLAC 60 MG/2 ML VIAL IVP STA (17:34)
--- NOTE | 2017-01-13 17:38 | ED Physician Documentation ---
PD HPI ABD PAIN - Stated complaint Stated Complaint: ABD PX - Chief complaint Chief Complaint: Abd Pain - History obtained from History obtained from: Patient - History of Present Illness Timing - onset: How many days ago (3) Timing - duration: Days (3) Timing - details: Gradual onset Pain level max: 8 Pain level now: 8 Quality: Sharp, Pain Location: Suprapubic Radiation: Other (Patient states that the pain starts at her umbilicus and radiates straight down) Improved by: Other (nothing) Worsened by: Moving Associated symptoms: Nausea, Diarrhea. No: Fever, Vomiting, Hematemesis, Constipation, Melena, Hematochezia, Dysuria, Hematuria Recently seen: Emergency Dept (seen here recently for abd pain, states this is different. Saw PCP a few days ago without dx.) - Additional information Additional information: no recent travel or abx Review of Systems Ten Systems: 10 systems reviewed and negative Constitutional: denies: Fever, Chills Nose: denies: Rhinorrhea / runny nose, Congestion Respiratory: denies: Cough GI: denies: Vomiting : reports: Hysterectomy. 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 : Chronic bladder infection, Kidney stones HEENT: None Psych: Depression, Bipolar disorder Musculoskeletal: Fibromyalgia, Chronic back pain Derm: None - Past Surgical History Past Surgical History: Yes Ortho: Other /BACKING IN MACHINE TENDER: section, Hysterectomy, Other HEENT: Tonsil/Adenoidectomy - Present Medications Home Medications: Ambulatory Orders Medication Instructions Recorded Confirmed Lamotrigine [Lamictal] 150 mg PO BID 11/04/12 01/13/17 Alprazolam [Xanax] 1 - 2 mg PO DAILY 10/29/14 01/13/17 Pregabalin [Lyrica] 225 mg PO BID 04/04/15 01/13/17 Acetaminophen [Tylenol] 650 mg PO Q4HR PRN #0 tablet 05/26/16 12/30/16 Estrogens, Conjugated [Premarin] 0.9 mg PO DAILY 11/10/16 01/13/17 Hyoscyamine Sulfate [Levsin-Sl] 0.125 mg SL Q4H PRN #20 tab.subl 01/13/17 Oxycodone HCl/Acetaminophen 1 - 2 each PO Q6H PRN #10 tablet 01/13/17 [Percocet 5-325 mg Tablet] Pantoprazole Sodium [Protonix] 20 mg PO 01/13/17 - Allergies Allergies/Adverse Reactions: Allergies Allergy/AdvReac Type Severity Reaction Status Date / Time amoxicillin trihydrate * Allergy Nausea Verified 12/30/16 21:10 [From Augmentin] azithromycin [From Zithromax] Allergy Anaphylaxis Verified 12/30/16 21:10 codeine [Codeine] Allergy Itching Verified 12/30/16 21:10 levofloxacin [From Levaquin] Allergy vomiting Verified 12/30/16 21:10 potassium clavulanate * Allergy Nausea Verified 12/30/16 21:10 [From Augmentin] Sulfa (Sulfonamide Allergy Itching Verified 12/30/16 21:10 Antibiotics) bactrim AdvReac Rash Uncoded 12/30/16 21:10 - Social History Does the pt smoke?: No Smoking Status: Former smoker Does the pt drink ETOH?: Yes Does the pt have substance abuse?: No - Immunizations Immunizations are current?: Yes - POLST Patient has POLST: No PD ED PE NORMAL - Vitals Vital signs reviewed: Yes - General General: Alert and oriented X 3, No acute distress - HEENT HEENT: Moist mucous membranes, Pharynx benign - Neck Neck: Supple, no meningeal sign, No adenopathy - Cardiac Cardiac: RRR, Strong equal pulses - Respiratory Respiratory: No respiratory distress, Clear bilaterally - Abdomen Abdomen: Normal bowel sounds, Soft, Non distended, Other (TTP diffusely across lower abd without peritoneal signs) - Female Female : Pt declined - Back Back: No CVA TTP, No spinal TTP - Derm Derm: Warm and dry, No rash - Extremities Extremities: No edema - Neuro Neuro: Alert and oriented X 3 - Psych Psych: Normal mood, Normal affect Results - Vitals Vitals: Vital Signs - 24 hr 01/13/17 01/13/17 17:03 20:07 Temperature 37.2 C 36.7 C Heart Rate 128 H 108 H Respiratory 16 17 Rate Blood Pressure 164/117 H 150/98 H O2 Saturation 96 100 Oxygen O2 Source Room air - Labs Labs: Laboratory Tests 01/13/17 01/13/17 01/13/17 17:23 17:23 17:26 WBC 8.4 RBC 5.34 Hgb 15.0 Hct 44.5 MCV 83.2 MCH 28.1 MCHC 33.7 RDW 12.7 Plt Count 219 MPV 7.5 L Neut # 3.9 Lymph # 4.1 [place] # 0.3 Eos # 0.1 Baso # 0.0 Absolute Nucleated RBC 0.00 Nucleated RBC % 0.0 Sodium 140 Potassium 4.0 Chloride 104 Carbon Dioxide 23 Anion Gap 13.0 BUN 15 Creatinine 0.7 Estimated GFR (MDRD) 95 Glucose 100 Calcium 9.7 Total Bilirubin 0.6 AST 66 H ALT 65 H Alkaline Phosphatase 56 Total Protein 8.2 Albumin 4.9 Globulin 3.3 Albumin/Globulin Ratio 1.5 Lipase 32 Urine Color YELLOW Urine Clarity CLEAR Urine pH 6.0 Ur Specific [place] 1.025 Urine Protein NEGATIVE Urine Glucose (UA) NEGATIVE Urine Ketones NEGATIVE Urine Occult Blood NEGATIVE Urine Nitrite NEGATIVE Urine Bilirubin NEGATIVE Urine Urobilinogen 0.2 (NORMAL) Ur Leukocyte Esterase NEGATIVE Ur Microscopic Review NOT INDICATED Urine Culture Comments NOT INDICATED Urine HCG, Qual NEGATIVE - Rads (name of study) CT abd/pelvis Radiology: Prelim report reviewed, EMP read contemporaneously, See rad report ( no acute findings) PD MEDICAL DECISION MAKING - ED course Complexity details: reviewed old records, reviewed results, re-evaluated patient , considered differential, d/w patient ED course: Patient is a 36-year-old female who presents to the emergency department with diarrhea and lower abdominal pain for the past 4 days. Saw her doctor without diagnosis. Concern for diverticulitis, therefore a CT scan was obtained, no acute abnormalities. Will trial her on Levsin for home as well as a small amount of pain medication. She is well-appearing, nontoxic. Afebrile. No acute laboratory findings to explain her symptoms. Patient declines a pelvic exam, discussed at length that we could miss something on the pelvic exam that could be causing her symptoms, patient states that if she continues to fail to improve, follow-up with her doctor for this. Patient is tolerating p.o. without difficulty here. Patient counseled regarding signs and symptoms for which I believe and urgent re-evaluation would be necessary. Patient with good understanding of and agreement to plan and is comfortable going home at this time This document was made in part using voice recognition software. While efforts are made to proofread this document, sound alike and grammatical errors may occur. She is driving herself home tonight, so no narcotics were used in the emergency department Departure - Departure Disposition: 01 Home, Self Care Clinical Impression: Abdominal pain Diarrhea Qualifiers: Diarrhea type: unspecified type Qualified Code(s): R19.7 - Diarrhea, unspecified Condition: Good Instructions: ED Abdominal Pain Unkn Cause, ED Diarrhea Viral Follow-Up: your,doctor in 1 week [Other] Prescriptions: Hyoscyamine Sulfate [Levsin-Sl] 0.125 mg SL Q4H PRN #20 tab.subl PRN Reason: Abdominal Pain Oxycodone HCl/Acetaminophen [Percocet 5-325 mg Tablet] 1 - 2 each PO Q6H PRN # 10 tablet PRN Reason: pain Comments: The cause of your symptoms is unclear today. Return if you worsen. Follow-up with your doctor for further evaluation and care within the next week. Do not drink alcohol or drive while on narcotic pain medicine. Note that many narcotic pain relievers also contain tylenol/acetaminophen. Please ensure that your total dose of acetaminophen from all sources does not exceed 3 grams (3000mg) per day. You may constipated on this medication, take a stool softener such as "Colace" twice a day while you are on it. Also recommend a [id number] laxative such as senna or MiraLAX any day that you do not have a bowel movement. If you received narcotic pain medication in the emergency department, do not drive or operate machinery for the next 24 hours. Discharge Date/Time: 01/13/17 20:15
[2017-01-13 17:42] LABS: ALBUMIN/GLOBULIN RATIO 1.5 (1.0-2.2); BILIRUBIN,TOTAL 0.6 mg/dL (0.2-1.0); CALCIUM 9.7 mg/dL (8.5-10.3); CREATININE 0.7 mg/dL (0.4-1.0); TOTAL PROTEIN 8.2 g/dL (6.7-8.2)
[2017-01-13] MEDS ORDERED: KETOROLAC 30 MG/ML VIAL ONE (17:46)
[2017-01-13] MEDS ORDERED: IOPAMIDOL-300 100 ML VIAL ONE (17:54)
[2017-01-13] MEDS ORDERED: IOPAMIDOL-300 100 ML VIAL IVP ONE (18:18)
[2017-01-13 18:32] LABS: BILIRUBIN,URINE NEGATIVE (NEGATIVE)
[2017-01-13 18:33] LABS: UA CHARGE (STRIP ONLY) YES; UR CULTURE IF IND NOT INDICATED
[2017-01-13 18:34] LABS: HCG UR QUAL NEGATIVE
--- NOTE | 2017-01-13 18:48 | CT Preliminary Report ---
Exam: CT ABDOMEN/PELVIS W/ IMPRESSION: Hysterectomy. Stable right pelvic stimulator lead. Otherwise unremarkable abdomen and pel vis CT. [facility] SITE ID: [id number]
--- NOTE | 2017-01-13 18:51 | CT Report ---
EXAM: CT ABDOMEN AND PELVIS EXAM DATE: 01/13/2017 06:18 PM. CLINICAL HISTORY: Lower abdomen pain. Diarrhea. COMPARISONS: 05/25/2016. TECHNIQUE: Routine helical CT imaging was performed through the abdomen and pelvis. IV contrast: 100 cc of Isovue-300. Enteric contrast: No. Reconstructions: Coronal and sagittal. In accordance with CT protocol optimization, one or more of the following dose reduction techniques w ere utilized for this exam: automated exposure control, adjustment of mA and/or KV based on patient s ize, or use of iterative reconstructive technique. FINDINGS: Lung Bases: Unremarkable. Liver: Normal. No masses. Gallbladder/Bile Ducts: Unremarkable. Spleen: Normal. Pancreas: Normal. Adrenal Glands: Normal. Kidneys: Normal. No masses or hydronephrosis. Peritoneal Cavity/Bowel: Normal. No free fluid, free air or adenopathy. No masses or acute inflammato ry process. The appendix is well visualized and normal. Pelvic Organs: Hysterectomy. Bladder unremarkable. Vasculature: No aneurysms or other significant abnormality. Bones: No significant abnormality. Other: Stable right flank pulse generator with neurostimulator lead ending in the right piriformis. IMPRESSION: Hysterectomy. Stable right pelvic stimulator lead. Otherwise unremarkable abdomen and pel vis CT. [facility] Referring Provider Line: [phone] SITE ID: [id number]
[2017-01-13] MEDS ORDERED: HYOSCYAMINE SL 0.125 MG TABLET SL STA (19:42)
[2017-01-13] MEDS ORDERED: DICYCLOMINE 10 MG CAPSULE PO STA (19:42)
[2017-01-13] MEDS ORDERED: DICYCLOMINE 10 MG CAPSULE PO ONE (19:54)
[2017-01-13] MEDS ORDERED: HYOSCYAMINE SL 0.125 MG TABLET SL ONE (19:54)
[2017-01-13 20:07] VITALS: BP 150/98
== END 2017-01-13 20:15 | disposition home or self-care (01) ==
LOC: ED 16:55
DX: R10.33 Periumbilical pain (principal); R19.7 Diarrhea, unspecified; K21.9 Gastro-esophageal reflux disease without esophagitis; M79.7 Fibromyalgia; Z86.718 Personal history of other venous thrombosis and embolism; Z87.891 Personal history of nicotine dependence
CPT/HCPCS: 36415; 74177; 80053; 81003; 81025; 83690; 85025; 96361; 96374; 99284; A9270; Q9967; 81001; 87086

== ENCOUNTER 2017-02-10 12:53 | Emergency (ER) | payer OTHER ==
--- NOTE | 2017-02-10 13:27 | ED Physician Documentation ---
History of Present Illness - Stated complaint Stated Complaint: NEED PAIN RX - Chief complaint Chief Complaint: General - History obtained from History obtained from: Patient (Pt reports that earlier this week (4 days ago) she had a "battery change" in her right buttock for overactive bladder. she was given 20 Percocet at dischrge. she staes that the pain has been so bad that she has had to take 2 tabs. She staes that yesterday (sunday) she called her surgeon who stated that if she needed a refill she needed to drive to his office. she stated that her surgeon told her to go to the ER and have the ER physician call him to discuss a refill. 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 : Chronic bladder infection, Kidney stones HEENT: None Psych: Depression, Bipolar disorder Musculoskeletal: Fibromyalgia, Chronic back pain Derm: None - Past Surgical History Past Surgical History: Yes Ortho: Other /SHEET ROCK LAYER: section, Hysterectomy, Other HEENT: Tonsil/Adenoidectomy - Present Medications Home Medications: Ambulatory Orders Medication Instructions Recorded Confirmed lamoTRIgine [Lamictal] 150 mg PO BID 11/04/12 02/10/17 Alprazolam [Xanax] 1 - 2 mg PO DAILY 10/29/14 02/10/17 Pregabalin [Lyrica] 225 mg PO BID 04/04/15 02/10/17 Estrogens, Conjugated [Premarin] 0.9 mg PO DAILY 11/10/16 02/10/17 Hyoscyamine Sulfate [Levsin-Sl] 0.125 mg SL Q4H PRN #20 tab.subl 01/13/17 Pantoprazole Sodium [Protonix] 20 mg PO DAILY 01/13/17 02/10/17 oxyCODONE/ACET 5/325 [Percocet 5 1 each PO Q6H PRN #5 tablet 02/10/17 mg/325 mg] - Allergies Allergies/Adverse Reactions: Allergies Allergy/AdvReac Type Severity Reaction Status Date / Time amoxicillin trihydrate * Allergy Nausea Verified 12/30/16 21:10 [From Augmentin] azithromycin [From Zithromax] Allergy Anaphylaxis Verified 12/30/16 21:10 codeine [Codeine] Allergy Itching Verified 12/30/16 21:10 levofloxacin [From Levaquin] Allergy vomiting Verified 12/30/16 21:10 potassium clavulanate * Allergy Nausea Verified 12/30/16 21:10 [From Augmentin] Sulfa (Sulfonamide Allergy Itching Verified 12/30/16 21:10 Antibiotics) bactrim AdvReac Rash Uncoded 12/30/16 21:10 - Social History Does the pt smoke?: No Smoking Status: Never smoker Does the pt drink ETOH?: Yes Does the pt have substance abuse?: No - Immunizations Immunizations are current?: Yes - POLST Patient has POLST: No PD ED PE NORMAL - Vitals Vital signs reviewed: Yes - General General: Alert and oriented X 3 - HEENT HEENT: Atraumatic, Moist mucous membranes - Cardiac Cardiac: No: RRR (tachycardic to 104) - Respiratory Respiratory: No respiratory distress, Clear bilaterally - Abdomen Abdomen: Normal bowel sounds, Soft - Derm Derm: Other (Well healing surgical wound on the right upper buttock w/o redness or drainage) - Neuro Neuro: Alert and oriented X 3 - Psych Psych: Normal mood, Normal affect Results - Vitals Vitals: Vital Signs - 24 hr 02/10/17 13:01 Temperature 36.9 C Heart Rate 104 H Respiratory 16 Rate Blood Pressure 136/87 H O2 Saturation 95 Oxygen O2 Source Room air PD MEDICAL DECISION MAKING - ED course Complexity details: d/w patient ED course: The pt gave me the phone number for her uro/SHEET ROCK LAYER surgeon at [facility]. We called that number and talked to the contract writer SHEET ROCK LAYER. The wound does not look infected. After discussion with the contract writer SHE[employer]OCK [employer]ER I was told that they normally send the pt home with an NSAID and Neurontin and percocet. The SHEET ROCK LAYER states that this type of operation usually need pain meds this far out. she states that the operative surgeon probably told the pt that if she was having this much pain that he needed to see her back in the office on Sunday. We decided to make sure the pt is on Neurontin and NSAID and give her 5 pills of the percocet. Pt states that she is on motrin and she cannot take neurontin because it causes "neurologic problems" I informed the pt that i would refill 5 percocet for her and that she needed to call her OB on sunday for a follow up if she needed more medications. I have concern for drug seeking behavior in the patient. Departure - Departure Disposition: Home, Self Care Clinical Impression: Post-operative pain Condition: Good Instructions: ED Chronic Pain Management Follow-Up: SHEET [employer]OCK [employer],provider [Other] Prescriptions: oxyCODONE/ACET 5/325 [Percocet 5 mg/325 mg] 1 each PO Q6H PRN #5 tablet PRN Reason: Pain
[2017-02-10 14:01] VITALS: BP 120/85
== END 2017-02-10 14:00 | disposition home or self-care (01) ==
LOC: ED 12:53
DX: G89.18 Other acute postprocedural pain (principal); Z76.0 Encounter for issue of repeat prescription; Z86.718 Personal history of other venous thrombosis and embolism; K21.9 Gastro-esophageal reflux disease without esophagitis; M79.7 Fibromyalgia
CPT/HCPCS: 99283

== ENCOUNTER 2017-03-12 19:25 | Inpatient (IN) | payer OTHER ==
[2017-03-12] MEDS ORDERED: KETOROLAC 60 MG/2 ML VIAL IVP STA (19:51)
[2017-03-12] MEDS ORDERED: HYDROmorphone 1 MG/ML SYRINGE IVP STA ×2 (19:51→20:59)
[2017-03-12] MEDS ORDERED: SODIUM CHLORIDE 0.9% 1,000 ML IV ONE (19:51)
[2017-03-12] MEDS ORDERED: PROMETHAZINE INJ 25 MG in SODIUM CHLORIDE 0.9% 50 ML IV STA ×2 (19:52→23:04)
--- NOTE | 2017-03-12 19:56 | ED Physician Documentation ---
History of Present Illness - Stated complaint Stated Complaint: RT FLANK PAIN, SOA - Chief complaint Chief Complaint: Neuro - History obtained from History obtained from: Patient, Family (, He) - History of Present Illness Timing: Other (This is a 36-year-old woman with history of GERD, bipolar disorder, anxiety, chronic low back pain, history of PE and recurrent bladder infections. About 6 weeks ago she had a bladder stimulator placed at the [facility]. She felt off before going to work this morning and developed right shoulder pain, posterior over the shoulder blade associated with fevers and chills and pain radiated around under the bra line on the right but there was no associated cough.) Review of Systems Ten Systems: 10 systems reviewed and negative Constitutional: reports: Fever, Chills Eyes: denies: Loss of vision, Decreased vision Ears: denies: Loss of hearing, Ear pain, Drainage/discharge Nose: denies: Rhinorrhea / runny nose, Congestion Throat: denies: Sore throat Cardiac: reports: Chest pain / pressure. denies: Palpitations, Pedal edema, Calf pain Respiratory: reports: Dyspnea. denies: Cough, Hemoptysis, Wheezing GI: reports: Abdominal Pain, Nausea, Vomiting. 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 : Chronic bladder infection, Kidney stones HEENT: None Psych: Depression, Bipolar disorder Musculoskeletal: Fibromyalgia, Chronic back pain Derm: None - Past Surgical History Past Surgical History: Yes Ortho: Other /PLANT CHANGER: section, Hysterectomy, Other HEENT: Tonsil/Adenoidectomy - Present Medications Home Medications: Ambulatory Orders Medication Instructions Recorded Confirmed lamoTRIgine [Lamictal] 150 mg PO BID 11/04/12 02/10/17 Alprazolam [Xanax] 1 - 2 mg PO DAILY 10/29/14 02/10/17 Pregabalin [Lyrica] 225 mg PO BID 04/04/15 02/10/17 Estrogens, Conjugated [Premarin] 0.9 mg PO DAILY 11/10/16 02/10/17 Hyoscyamine Sulfate [Levsin-Sl] 0.125 mg SL Q4H PRN #20 tab.subl 01/13/17 Pantoprazole Sodium [Protonix] 20 mg PO DAILY 01/13/17 02/10/17 oxyCODONE/ACET 5/325 [Percocet 5 1 each PO Q6H PRN #5 tablet 02/10/17 mg/325 mg] - Allergies Allergies/Adverse Reactions: Allergies Allergy/AdvReac Type Severity Reaction Status Date / Time amoxicillin trihydrate * Allergy Nausea Verified 12/30/16 21:10 [From Augmentin] azithromycin [From Zithromax] Allergy Anaphylaxis Verified 12/30/16 21:10 codeine [Codeine] Allergy Itching Verified 12/30/16 21:10 levofloxacin [From Levaquin] Allergy vomiting Verified 12/30/16 21:10 potassium clavulanate * Allergy Nausea Verified 12/30/16 21:10 [From Augmentin] Sulfa (Sulfonamide Allergy Itching Verified 12/30/16 21:10 Antibiotics) bactrim AdvReac Rash Uncoded 12/30/16 21:10 - Social History Does the pt smoke?: No Smoking Status: Never smoker Does the pt drink ETOH?: Yes Does the pt have substance abuse?: No - Family History Family history: reports: Non contributory - Immunizations Immunizations are current?: Yes - POLST Patient has POLST: No PD ED PE NORMAL - Vitals Vital signs reviewed: Yes (Febrile, hypertensive, tachycardic) - General General: Alert and oriented X 3, No acute distress, Other (Appears mildly ill, sitting up is more comfortable than lying down) - HEENT HEENT: PERRL, EOMI - Neck Neck: Supple, no meningeal sign, No bony TTP - Cardiac Cardiac: Other (Tachycardic, regular, no murmur) - Respiratory Respiratory: Other (She is splinting her breaths and has decreased breath sounds at the right base.) - Abdomen Abdomen: Other (Tender in the right upper quadrant with positive Baum sign, no diffuse tenderness or surgical signs other than that.) - Derm Derm: Normal color, Warm and dry - Extremities Extremities: No edema, No calf tenderness / cord - Neuro Neuro: Alert and oriented X 3, Normal speech, Other (She is not hyperreflexic in the lower extremities) - Psych Psych: Normal mood, Normal affect Results - Vitals Vitals: Vital Signs - 24 hr 12/03/12/17 03/12/17 19:32 20:33 20:36 Temperature 38.2 C H 37.6 C H Heart Rate 155 H 146 H Respiratory 20 25 H Rate Blood Pressure 167/107 H 141/106 H O2 Saturation 96 95 03/12/17 03/12/17 03/12/17 21:00 21:06 22:21 Temperature 37.2 C Heart Rate 142 H 130 H Respiratory 26 H 19 Rate Blood Pressure 138/93 H 156/104 H O2 Saturation 89 L 96 94 Oxygen O2 Source Room air Oxygen Flow Rate 1.5 - EKG (time done) 1957 Rate: Rate (enter#) (150) Rhythm: Sinus tachycardia [place]: Normal Intervals: Normal [place], Prolonged QT QRS: Normal Ischemia: Non specific changes Computer interpretation: Agree with computer - Labs Labs: Laboratory Tests 03/12/17 03/12/17 03/12/17 19:50 19:50 19:50 WBC 8.6 RBC 5.27 Hgb 14.7 Hct 43.4 MCV 82.3 MCH 28.0 MCHC 34.0 RDW 12.9 Plt Count 210 MPV 7.3 L Neut # 4.9 Lymph # 3.2 [place] # 0.3 Eos # 0.1 Baso # 0.0 Absolute Nucleated RBC 0.00 Nucleated RBC % 0.0 Sodium 139 Potassium 3.3 L Chloride 100 L Carbon Dioxide 21 Anion Gap 18.0 H BUN 11 Creatinine 0.7 Estimated GFR (MDRD) 95 Glucose 115 H Lactic Acid 4.3 H* Calcium 9.8 Total Bilirubin 0.5 AST 45 H ALT 41 Alkaline Phosphatase 58 Troponin I Total Protein 8.4 H Albumin 4.9 Globulin 3.6 Albumin/Globulin Ratio 1.4 Lipase 22 Urine Color Urine Clarity Urine pH Ur Specific [place] Urine Protein Urine Glucose (UA) Urine Ketones Urine Occult Blood Urine Nitrite Urine Bilirubin Urine Urobilinogen Ur Leukocyte Esterase Ur Microscopic Review Urine Culture Comments Urine HCG, Qual Urine Opiates Screen Ur Oxycodone Screen Urine Methadone Screen Ur Propoxyphene Screen Ur Barbiturates Screen Ur Tricyclics Screen Ur Phencyclidine Scrn Ur Amphetamine Screen U Methamphetamines Scrn U Benzodiazepines Scrn Urine Cocaine Screen U Cannabinoids Screen 03/12/17 03/12/17 03/12/17 19:50 20:58 21:50 WBC RBC Hgb Hct MCV MCH MCHC RDW Plt Count MPV Neut # Lymph # [place] # Eos # Baso # Absolute Nucleated RBC Nucleated RBC % Sodium Potassium Chloride Carbon Dioxide Anion Gap BUN Creatinine Estimated GFR (MDRD) Glucose Lactic Acid 4.0 H* Calcium Total Bilirubin AST ALT Alkaline Phosphatase Troponin I < 0.04 Total Protein Albumin Globulin Albumin/Globulin Ratio Lipase Urine Color DARK YELLOW Urine Clarity CLOUDY Urine pH 6.0 Ur Specific [place] 1.015 Urine Protein NEGATIVE Urine Glucose (UA) NEGATIVE Urine Ketones NEGATIVE Urine Occult Blood LARGE H Urine Nitrite NEGATIVE Urine Bilirubin NEGATIVE Urine Urobilinogen 0.2 (NORMAL) Ur Leukocyte Esterase NEGATIVE Ur Microscopic Review INDICATED Urine Culture Comments Not Reportable Urine HCG, Qual NEGATIVE Urine Opiates Screen POSITIVE H Ur Oxycodone Screen NEGATIVE Urine Methadone Screen NEGATIVE Ur Propoxyphene Screen NEGATIVE Ur Barbiturates Screen NEGATIVE Ur Tricyclics Screen POSITIVE H Ur Phencyclidine Scrn NEGATIVE Ur Amphetamine Screen POSITIVE H U Methamphetamines Scrn NEGATIVE U Benzodiazepines Scrn POSITIVE H Urine Cocaine Screen NEGATIVE U Cannabinoids Screen NEGATIVE - Rads (name of study) RUQ sono Radiology: EMP read contemporaneously (Fatty liver without gallbladder abnormality) 2v Chest Radiology: EMP read contemporaneously (subtle RML PNA) CTA Chest Radiology: EMP read contemporaneously (no PE) Procedures - General procedure General procedure: She was difficult for IV access, I personally placed a 20-gauge IV in the right antecubital fossa using real-time ultrasound guidance after ChloraPrep which flushed and jaden well. PD MEDICAL DECISION MAKING - ED course ED course: 36-year-old woman presents with fever, impressive tachycardia and right-sided back pain. No cough but chest x-ray is suggestive of pneumonia. Consideration for PE given history of same but negative on pulmonary angiogram. I was pretty sure that the rhythm was sinus tachycardia, but could not rule out flutter with 2-1 block on the monitor so she was administered adenosine with no change proving sinus tachycardia. Not much variability though. Lactate was high and rechecked and still high. She was administered ceftriaxone and doxycycline, antibiotics are limited noting her allergies. Given the persistent tachycardia and lactic acidosis I spoke with Dr. Deshpande for admission at 10:45 PM. Departure - Departure Disposition: 66 [facility] DC/Xfer Clinical Impression: Pneumonia Qualifiers: Pneumonia type: due to unspecified organism Laterality: right Lung location: middle lobe of lung Qualified Code(s): J18.1 - Lobar pneumonia, unspecified organism Sepsis Qualifiers: Sepsis type: sepsis due to unspecified organism Qualified Code(s): A41.9 - Sepsis, unspecified organism Condition: Serious
[2017-03-12 20:05] LABS: BASOPHILS % (AUTO) 0.3 %; EOSINOPHILS # (AUTO) 0.1 10^3/uL (0.0-0.7); EOSINOPHILS % (AUTO) 0.9 %; HGB - HEMOGLOBIN 14.7 g/dL (12.0-16.0); LYMPHOCYTES # (AUTO) 3.2 10^3/uL (1.5-3.5); LYMPHOCYTES % (AUTO) 37.8 %; MEAN CORPUSCULAR VOLUME 82.3 fL (81.0-99.0); MEAN PLATELET VOLUME 7.3 fL (7.9-10.8); MONOCYTES # (AUTO) 0.3 10^3/uL (0.0-1.0); MONOCYTES % (AUTO) 3.9 %; NEUTROPHILS # (AUTO) 4.9 10^3/uL (1.5-6.6); NEUTROPHILS % (AUTO) 57.1 %; PLT - PLATELET COUNT 210 10^3/uL (130-450); RED BLOOD COUNT 5.27 10^6/uL (4.20-5.40); RED CELL DISTRIBUTION WIDTH 12.9 % (12.0-15.0); WHITE BLOOD COUNT 8.6 x10^3/uL (4.8-10.8)
[2017-03-12 20:19] LABS: ALBUMIN 4.9 g/dL (3.2-5.5); ALBUMIN/GLOBULIN RATIO 1.4 (1.0-2.2); BILIRUBIN,TOTAL 0.5 mg/dL (0.2-1.0); CALCIUM 9.8 mg/dL (8.5-10.3); CREATININE 0.7 mg/dL (0.4-1.0); TOTAL PROTEIN 8.4 g/dL (6.7-8.2)
[2017-03-12] MEDS ORDERED: LACTATED RINGERS 1,000 ML IV STA ×2 (20:28→23:05)
--- NOTE | 2017-03-12 21:08 | Ultrasound Preliminary Report ---
Exam: US ABDOMEN LIMITED IMPRESSION: 1. Large fatty liver. 2. Unremarkable gallbladder and ducts. [facility] SITE ID: [id number]
--- NOTE | 2017-03-12 21:10 | Ultrasound Report ---
EXAM: ABDOMEN ULTRASOUND LIMITED, RUQ EXAM DATE: 03/12/2017 08:45 PM. CLINICAL HISTORY: Abdomen pain. COMPARISON: 12/30/2016. TECHNIQUE: Real-time scanning was performed with static images obtained. FINDINGS: Liver: Enlarged and echogenic 23.7 cm. Main portal vein flow: Hepatopetal. Gallbladder: Normal. No stones, wall thickening, or sonographic Baum's sign. Biliary System: CBD measures 5 mm. No intrahepatic or extrahepatic ductal dilatation. Other: The visualized pancreas and right kidney are unremarkable. No free fluid. IMPRESSION: 1. Large fatty liver. 2. Unremarkable gallbladder and ducts. [facility] Referring Provider Line: [phone] SITE ID: [id number]
[2017-03-12] MEDS ORDERED: IOPAMIDOL-300 100 ML VIAL ONE (21:11)
--- NOTE | 2017-03-12 21:23 | XRAY Preliminary Report ---
Exam: XR CHEST 2 VIEW PA/LAT IMPRESSION: Subtle right middle lobe opacities suspicious for acute air space disease. [facility] SITE ID: [id number]
--- NOTE | 2017-03-12 21:25 | XRAY Report ---
EXAM: CHEST RADIOGRAPHY EXAM DATE: 03/12/2017 08:56 PM. CLINICAL HISTORY: Chest pain. COMPARISON: 04/11/2016 chest x-ray. TECHNIQUE: 2 views. FINDINGS: Lungs/Pleura: Subtle increased right middle lobe opacity. The left lung is clear. No pleural effusion or pneumothorax. Mediastinum: Heart and mediastinal contours are unremarkable. Other: None. IMPRESSION: Subtle right middle lobe opacities suspicious for acute air space disease. [facility] Referring Provider Line: [phone] SITE ID: [id number]
[2017-03-12] MEDS ORDERED: IOPAMIDOL-300 100 ML VIAL IVP ONE (21:29)
[2017-03-12] MEDS ORDERED: DOXYCYCLINE INJ 100 MG in SODIUM CHLORIDE 0.9% MINIBAG 100 ML IV STA (21:41)
[2017-03-12] MEDS ORDERED: cefTRIAXone 2 GM in SODIUM CHLORIDE 0.9% MINIBAG 100 ML IV STA (21:41)
--- NOTE | 2017-03-12 21:53 | CT Preliminary Report ---
Exam: CT CHEST ANGIO (PE) IMPRESSION: No pulmonary embolism. [facility] SITE ID: [id number]
--- NOTE | 2017-03-12 21:56 | CT Report ---
EXAM: CT ANGIOGRAM CHEST EXAM DATE: 03/12/2017 09:33 PM. CLINICAL HISTORY: Back pain, dyspnea, h/o pe. COMPARISON: 05/31/[address] TECHNIQUE: Routine helical imaging was performed through the chest in the pulmonary arterial phase. I V Contrast: 80 mL Isovue 300. Reconstructions: Coronal 3-D MIP reconstructions.Sagittal and coronal. In accordance with CT protocol optimization, one or more of the following dose reduction techniques w ere utilized for this exam: automated exposure control, adjustment of mA and/or KV based on patient s ize, or use of iterative reconstructive technique. FINDINGS: Pulmonary Arteries: Diagnostic quality: Adequate through the segmental arteries. No evidence for acute or chronic pulmona ry emboli. RV/LV is within normal limits. There is no interventricular septal bowing. There is no reflux of cont rast material in the IVC. Lungs/Pleura: No consolidation, nodules, or edema. No effusions or pneumothorax. Mediastinum: Normal. No cardiac enlargement or adenopathy. Thoracic Aorta: Unremarkable. Upper Abdomen: Decreased hepatic density suggesting fatty infiltration. Other: None. IMPRESSION: No pulmonary embolism. [facility] Referring Provider Line: [phone] SITE ID: [id number]
[2017-03-12] MEDS ORDERED: ADENOSINE 12 MG/4 ML VIAL IVP ONE (22:13)
[2017-03-12 22:17] LABS: MUDS CUTOFF CONCENTRATIONS CUTOFF CONC BELOW:
[2017-03-12] MEDS ORDERED: ADENOSINE 6 MG/2 ML VIAL IVP ONE (22:19)
[2017-03-12 22:24] LABS: BILIRUBIN,URINE NEGATIVE (NEGATIVE); GLUCOSE, URINE (UA) NEGATIVE (NEGATIVE); KETONES,URINE (UA) NEGATIVE (NEGATIVE); LEUKOCYTE ESTERASE, URINE NEGATIVE (NEGATIVE); NITRITE,URINE NEGATIVE (NEGATIVE); OCCULT BLOOD,URINE LARGE (NEGATIVE); PROTEIN,URINE NEGATIVE (NEGATIVE); UROBILINOGEN,URINE 0.2 (NORMAL) E.U./dL (NORMAL)
[2017-03-12 22:25] LABS: CLARITY,URINE CLOUDY (CLEAR)
[2017-03-12 22:26] LABS: HCG UR QUAL NEGATIVE
[2017-03-12 22:48] LABS: AMPHETAMINE SCREEN,URINE POSITIVE (NEGATIVE); BENZODIAZEPINES SCREEN, URINE POSITIVE (NEGATIVE); COCAINE SCREEN URINE NEGATIVE (NEGATIVE); METHADONE SCREEN, URINE NEGATIVE (NEGATIVE); METHAMPHETAMINES SCREEN, URINE NEGATIVE (NEGATIVE); OPIATE SCREEN, URINE POSITIVE (NEGATIVE); OXYCODONE SCREEN, URINE NEGATIVE (NEGATIVE); PROPOXYPHENE SCREEN, URINE NEGATIVE (NEGATIVE); TRICYCLIC ANTIDEPRESSANT,URINE POSITIVE (NEGATIVE)
[2017-03-12 23:07] LABS: BACTERIA,URINE Few /HPF (None Seen); RBC,URINE TNTC /HPF (0-5); SQUAMOUS EPITHELIAL CELL,UR MOD Squamous (<= Few)
[2017-03-12] MEDS ORDERED: HYOSCYAMINE SL 0.125 MG TABLET SL PRN (23:17)
[2017-03-12] MEDS ORDERED: SODIUM CHLORIDE 0.9% 500 ML IV SCH (23:19)
[2017-03-12] MEDS ORDERED: PROMETHAZINE 25 MG/1 ML VIAL IM PRN (23:19)
[2017-03-12] MEDS ORDERED: SODIUM CHLORIDE FLUSH 0.9% 10 ML SYRINGE IVP PRN (23:19)
[2017-03-12] MEDS ORDERED: oxyCODONE 5 MG TABLET PO PRN (23:19)
[2017-03-12] MEDS ORDERED: ZOLPIDEM 5 MG TABLET PO PRN (23:19)
[2017-03-12] MEDS ORDERED: ONDANSETRON 4 MG/2 ML VIAL IVP PRN (23:19)
[2017-03-12] MEDS ORDERED: VANCOMYCIN PER PHARMACY 1 GM in SODIUM CHLORIDE 0.9% 250 ML IV SCH (23:45)
[2017-03-13] MEDS ORDERED: VANCOMYCIN INJ 1.75 GM in SODIUM CHLORIDE 0.9% 500 ML IV SCH (01:00)
[2017-03-13] MEDS: NS W/20 MEQ KCL 1,000 ML IV SCH ×4 (01:00→21:52)
[2017-03-13] MEDS ORDERED: POTASSIUM CHLORIDE 20 MEQ TABLET PO ONE (01:01)
[2017-03-13] MEDS: CEFEPIME 2 GM in SODIUM CHLORIDE 0.9% MINIBAG 100 ML IV SCH ×4 (01:01→21:52)
[2017-03-13] MEDS: HYDROmorphone 0.5 MG/0.5 ML SYRINGE IVP PRN ×4 (01:13→15:49)
--- NOTE | 2017-03-13 01:15 | HISTORY & PHYSICAL EXAMINATION ---
Chief Complaint - Chief Complaint Chief Complaint: Chest pain History of Present Illness - Admitted From Admitted From:: Emergency department - History Obtained From Records Reviewed: Yes History obtained from: Patient Exam Limitations: None - History of Present Illness HPI Comment/Other: Patient is a 36-year-old female with a past medical history significant for recurrent bladder infections with urinary incontinence status post bladder pacemaker placement earlier this year, GERD, bipolar disorder with depression and anxiety, chronic low back pain, fibromyalgia and history of pulmonary embolism who presented to the emergency department with a chief complaint of right-sided chest pain. The patient states that she was in her normal state of health until she woke up this morning and was running a fever. She states that she checked her temperature and it was 102 which is unusual for her as she states even when she gets sick she usually does not run a fever. She states that she went to work and then around noon when she returned from work she started having this right sided pain that initially started in the right scapular area and then wrapped around into the right chest and right upper quadrant of her abdomen. She states that the pain was worse with taking a deep breath and she states that as the day progressed she began feeling short of breath. She denied any cough. She states that she felt cold throughout the day and began having a fever again in the afternoon. She states that she felt dizzy and felt as though her heart was racing. She states the pain was a 7 out of 10 and was sharp. When the pain would not go away she became concerned and came into the emergency department. She also states that she has had associated nausea and has vomited 3 times. She also states that she has had an episode of diarrhea today. The patient denies urinary urgency, frequency or dysuria. She denies any lower abdominal pain. She denies any flank pain and states that this is very different from anytime that she has had a urinary infection or pyelonephritis. The patient denies any headaches, blurred vision, runny nose, sore throat, nasal congestion, difficulty swallowing, neck pain, recent unintentional weight loss, night sweats, change in her appetite. The patient denies any orthopnea, PND, lower extremity swelling or any calf pain. The patient does have chronic muscle pain and back pain from her fibromyalgia. She denies any new muscle aches. She denies any focal neurologic deficits. On presentation to the emergency department the patient was febrile with a temperature of 38.2, tachycardic with a heart rate in the 150s and slightly hypertensive. The patient did not appear to be in respiratory distress but was breathing shallowly and grasping onto her right chest due to significant pain. The patient did become tachypneic in the emergency department with respiratory rate of over 25. The patient's initial routine lab work did reveal an elevated lactic acid of 4.3 but otherwise she had no leukocytosis. She did have a slight elevation in her AST and her potassium was low at 3.3. The patient's urine showed large occult blood with mild amount of WBCs but moderate squamous cells and this was not felt to be the source of her infection. The patient's flu swab was negative. The patient underwent a chest x-ray which revealed subtle right middle lobe opacities which were suspicious for acute airway disease. The patient also underwent an abdominal ultrasound given that her pain was in the right upper quadrant this showed a fatty liver but her gallbladder and gallbladder ducts were unremarkable. The patient also underwent a CT angiogram of her chest as she had a history of pulmonary embolism and was tachycardic with right-sided chest pain this was negative for any pulmonary embolism. Given the above findings the patient was admitted to the [facility] for sepsis likely secondary to a pneumonia. History - Past Medical History Cardiovascular: reports: Pulmonary embolism, Other (Obesity) Respiratory: reports: Pneumonia Neuro: reports: Headache/migraine Endocrine/Autoimmune: reports: None GI: reports: GERD UNDERWEAR TRIMMER: reports: None : reports: Chronic bladder infection (s/p bladder pacemaker), Kidney stones, Other HEENT: reports: None Psych: reports: Depression, Anxiety, Bipolar disorder, Panic attacks, Post traumatic stress disorder Musculoskeletal: reports: Fibromyalgia, Chronic back pain Derm: reports: None MRSA Hx?: No Other Past Medical History: Interstem - Past Surgical History Ortho: reports: Other /UNDERWEAR TRIMMER: reports: section, Hysterectomy, Other HEENT: reports: Tonsil/Adenoidectomy - Family & Social History Family History Comment/Other: The patient is not close with any of her family aside from her own kids and and does not know her family history. She cannot think of anyone that she knows this of cancer or had diabetes or heart disease. Living arrangement: At home Living Situation: With family Social History Notes: The patient lives in [place] with her and 2 children. She is retired from the [employer]. She is . She denies any tobacco use or any illicit drug use. She states that she does occasionally drink alcohol but is not a heavy drinker. - POLST Patient has POLST: No POLST Status: Full Code Meds/Allgy - Home Medications Home Medications: Ambulatory Orders Medication Instructions Recorded Confirmed lamoTRIgine [Lamictal] 150 mg PO BID 11/04/12 02/10/17 Alprazolam [Xanax] 1 - 2 mg PO DAILY 10/29/14 02/10/17 Pregabalin [Lyrica] 225 mg PO BID 04/04/15 02/10/17 Estrogens, Conjugated [Premarin] 0.9 mg PO DAILY 11/10/16 02/10/17 Hyoscyamine Sulfate [Levsin-Sl] 0.125 mg SL Q4H PRN #20 tab.subl 01/13/17 Pantoprazole Sodium [Protonix] 20 mg PO DAILY 01/13/17 02/10/17 oxyCODONE/ACET 5/325 [Percocet 5 1 each PO Q6H PRN #5 tablet 02/10/17 mg/325 mg] - Allergies Allergies/Adverse Reactions: Allergies Allergy/AdvReac Type Severity Reaction Status Date / Time amoxicillin trihydrate * Allergy Nausea Verified 12/30/16 21:10 [From Augmentin] azithromycin [From Zithromax] Allergy Anaphylaxis Verified 12/30/16 21:10 codeine [Codeine] Allergy Itching Verified 12/30/16 21:10 levofloxacin [From Levaquin] Allergy vomiting Verified 12/30/16 21:10 potassium clavulanate * Allergy Nausea Verified 12/30/16 21:10 [From Augmentin] Sulfa (Sulfonamide Allergy Itching Verified 12/30/16 21:10 Antibiotics) bactrim AdvReac Rash Uncoded 12/30/16 21:10 Review of Systems - Other Findings Other Findings: A comprehensive review of systems was performed the pertinent positives and negatives are stated above in the HPI and the remainder of the review of systems is negative. Exam - Vital Signs Reviewed Vital Signs: Yes Vital Signs: Vital Signs x48h Temp Pulse Pulse Resp BP BP Pulse Ox 03/13/17 00:18 37.5 C 122 H 20 136/79 H 95 03/13/17 00:05 135 H 20 134/85 H 95 - Physical Exam General Appearance: positive: Alert, Moderate distress (Patient still in pain and appears uncomfortable in the bed.) Eyes Bilateral: positive: Normal inspection, PERRL, EOMI, No lid inflammation, Conjunctivae nml, No scleral icterus ENT: positive: ENT inspection nml, Pharynx nml, Dry mucous membranes. negative : Purulent nasal drainage, Pharyngeal erythema, Oral lesions Neck: positive: Nml inspection, Thyroid nml, No JVD, Trachea midline. negative : Thyromegaly, Lymphadenopathy (R), Lymphadenopathy (L), Stiff neck, Carotid bruit, Tracheal deviation Respiratory: positive: Chest non-tender, No respiratory distress, Other ( Diminished breath sounds in the right lung). negative: Wheezes, Rales, Rhonchi Cardiovascular: positive: No murmur, No gallop, Tachycardia Peripheral Pulses: positive: 2+ Abdomen: positive: No organomegaly, Nml bowel sounds, Tenderness (Right upper quadrant tenderness), Other (Abdomen was soft). negative: Guarding, Rebound Back: positive: Nml inspection. negative: CVA tenderness (R), CVA tenderness (L ) Skin: positive: Color nml, No rash, Warm. negative: Cyanosis, Diaphoresis Extremities: positive: Non-tender, Full ROM, Nml appearance, No pedal edema Neurologic/Psychiatric: positive: Oriented x3, CN's nml (2-12), Motor nml, Sensation nml, Mood/affect nml Conclusion/Plan - Problem List (1) Sepsis Conclusion/Plan: Patient presented to the emergency department with right-sided chest pain. She is also having fevers, feeling cold and felt palpitations. On presentation to the emergency department the patient was tachycardic in the 150s and had a fever of 38.2. She is also tachypneic in the emergency department up to 26 and oxygen saturation did drop down to 89% requiring oxygen. The patient was found to have a lactic acidosis of 4.3. It was determined that the patient was septic and chest x-ray revealed a right middle lobe pneumonia which is likely the source of her sepsis. The patient also has a pacemaker for her bladder due to recurrent urinary tract infections. She did state that she was having some pain near the area where the pacemaker has been placed however this pain has been there since the placement of the pacemaker. Plan: Patient will be given broad-spectrum IV antibiotics with vancomycin and cefepime until blood cultures return if blood cultures are negative then we will de-escalate antibiotics to cover community-acquired pneumonia if blood cultures are positive we will narrow the spectrum to treat the specific bacteria Patient will be given IV fluids we will give her a 500 cc bolus and then place her on maintenance fluid Patient will get Tylenol for her fever If patient is not improving and continues to have right upper quadrant abdominal pain her pain moves down further in her abdomen we will consider a CT of her abdomen Patient will be monitored on telemetry Qualifiers: Sepsis type: sepsis due to unspecified organism Qualified Code(s): A41.9 - Sepsis, unspecified organism (2) Pneumonia Conclusion/Plan: The patient presented with right-sided chest pain, shortness of air, hypoxia and has been having diarrhea and vomiting. The patient denied having had any cough. The patient was septic on presentation with an elevated lactic acid, fever and tachycardia. Other sources for her sepsis such as urine, cholecystitis and PE were all ruled out. Patient's chest x-ray did show a right middle lobe pneumonia. Patient appears to have an atypical pneumonia given her symptoms of chest pain which is pleuritic but she also has diarrhea and vomiting. Plan: Patient will be placed on broad-spectrum IV antibiotics given her presentation with sepsis she will be placed on vancomycin and cefepime We will await blood cultures Patient will be given supplemental oxygen Patient will be given probiotics Patient will be given narcotics for her pleuritic chest pain. Qualifiers: Pneumonia type: due to unspecified organism Laterality: right Lung location: middle lobe of lung Qualified Code(s): J18.1 - Lobar pneumonia, unspecified organism (3) Hypokalemia Conclusion/Plan: On presentation to the emergency department the patient's potassium was 3.3. She did appear to be quite dry on examination and did admit to having several episodes of vomiting prior to presentation to the emergency room as well as an episode of diarrhea. Likely her potassium was low due to GI loss. Plan: Patient will be given IV potassium replacement and we will continue to monitor her potassium daily. (4) Bipolar 1 disorder Conclusion/Plan: The patient has a history of bipolar and is currently on Lamictal at home. The patient does appear to be stable from the standpoint of her bipolar. We will continue her on her home medication. The patient states that she is scheduled to have an appointment with her behavioral health team tomorrow at 2 PM but it does not look likely that she will make that appointment given the hospitalization. (5) Anxiety Conclusion/Plan: With the bipolar the patient does have history of anxiety. The patient does take Xanax for her anxiety at home and we will continue her on Xanax while she is hospitalized (6) GERD (gastroesophageal reflux disease) Conclusion/Plan: Patient has history of GERD and uses Protonix at home and she will receive Protonix while she is hospitalized. (7) Prophylactic use of low molecular weight heparin for venous thromboembolism Conclusion/Plan: Patient will be given Lovenox for DVT prophylaxis. - Lab Results Lab results reviewed: Yes Fish Bones: 03/12/17 19:50 03/12/17 19:50 Other Lab Results: Laboratory Results WBC 8.6 x10^3/uL (4.8-10.8) 03/12/17 19:50 RBC 5.27 10^6/uL (4.20-5.40) 03/12/17 19:50 Hgb 14.7 g/dL (12.0-16.0) 03/12/17 19:50 Hct 43.4 % (37.0-47.0) 03/12/17 19:50 MCV 82.3 fL (81.0-99.0) 03/12/17 19:50 MCH 28.0 pg (27.0-31.0) 03/12/17 19:50 MCHC 34.0 g/dL (32.0-36.0) 03/12/17 19:50 RDW 12.9 % (12.0-15.0) 03/12/17 19:50 Plt Count 210 10^3/uL (130-450) 03/12/17 19:50 MPV 7.3 fL (7.9-10.8) L 03/12/17 19:50 Neut # 4.9 10^3/uL (1.5-6.6) 03/12/17 19:50 Lymph # 3.2 10^3/uL (1.5-3.5) 03/12/17 19:50 Cherry # 0.3 10^3/uL (0.0-1.0) 03/12/17 19:50 Eos # 0.1 10^3/uL (0.0-0.7) 03/12/17 19:50 Baso # 0.0 10^3/uL (0.0-0.1) 03/12/17 19:50 Absolute Nucleated RBC 0.00 x10^3/uL 03/12/17 19:50 Nucleated RBC % 0.0 /100WBC 03/12/17 19:50 Sodium 139 mmol/L (135-145) 03/12/17 19:50 Potassium 3.3 mmol/L (3.5-5.0) L 03/12/17 19:50 Chloride 100 mmol/L (101-111) L 03/12/17 19:50 Carbon Dioxide 21 mmol/L (21-32) 03/12/17 19:50 Anion Gap 18.0 (6-13) H 03/12/17 19:50 BUN 11 mg/dL (6-20) 03/12/17 19:50 Creatinine 0.7 mg/dL (0.4-1.0) 03/12/17 19:50 Estimated GFR (MDRD) 95 (>89) 03/12/17 19:50 Glucose 115 mg/dL (70-100) H 03/12/17 19:50 Lactic Acid 4.0 mmol/L (0.5-2.2) H* 03/12/17 20:58 Calcium 9.8 mg/dL (8.5-10.3) 03/12/17 19:50 Total Bilirubin 0.5 mg/dL (0.2-1.0) 03/12/17 19:50 AST 45 IU/L (10-42) H 03/12/17 19:50 ALT 41 IU/L (10-60) 03/12/17 19:50 Alkaline Phosphatase 58 IU/L (42-121) 03/12/17 19:50 Troponin I < 0.04 ng/mL (<0.49) 03/12/17 19:50 Total Protein 8.4 g/dL (6.7-8.2) H 03/12/17 19:50 Albumin 4.9 g/dL (3.2-5.5) 03/12/17 19:50 Globulin 3.6 g/dL (2.1-4.2) 03/12/17 19:50 Albumin/Globulin Ratio 1.4 (1.0-2.2) 03/12/17 19:50 Lipase 22 U/L (22-51) 03/12/17 19:50 Urine Color DARK YELLOW 03/12/17 21:50 Urine Clarity CLOUDY (CLEAR) 03/12/17 21:50 Urine pH 6.0 PH (5.0-7.5) 03/12/17 21:50 Ur Specific [place] 1.015 (1.002-1.030) 03/12/17 21:50 Urine Protein NEGATIVE mg/dL (NEGATIVE) 03/12/17 21:50 Urine Glucose (UA) NEGATIVE mg/dL (NEGATIVE) 03/12/17 21:50 Urine Ketones NEGATIVE mg/dL (NEGATIVE) 03/12/17 21:50 Urine Occult Blood LARGE (NEGATIVE) H 03/12/17 21:50 Urine Nitrite NEGATIVE (NEGATIVE) 03/12/17 21:50 Urine Bilirubin NEGATIVE (NEGATIVE) 03/12/17 21:50 Urine Urobilinogen 0.2 (NORMAL) E.U./dL (NORMAL) 03/12/17 21:50 Ur Leukocyte Esterase NEGATIVE (NEGATIVE) 03/12/17 21:50 Urine RBC TNTC /HPF (0-5) H 03/12/17 21:50 Urine WBC 6-10 /HPF (0-5) H 03/12/17 21:50 Ur Squamous Epith Cells MOD Squamous (<= Few) H 03/12/17 21:50 Urine Bacteria Few /HPF (None Seen) 03/12/17 21:50 Ur Microscopic Review INDICATED 03/12/17 21:50 Urine Culture Comments NOT INDICATED 03/12/17 21:50 Urine HCG, Qual NEGATIVE 03/12/17 21:50 Urine Opiates Screen POSITIVE (NEGATIVE) H 03/12/17 21:50 Ur Oxycodone Screen NEGATIVE (NEGATIVE) 03/12/17 21:50 Urine Methadone Screen NEGATIVE (NEGATIVE) 03/12/17 21:50 Ur Propoxyphene Screen NEGATIVE (NEGATIVE) 03/12/17 21:50 Ur Barbiturates Screen NEGATIVE (NEGATIVE) 03/12/17 21:50 Ur Tricyclics Screen POSITIVE (NEGATIVE) H 03/12/17 21:50 Ur Phencyclidine Scrn NEGATIVE (NEGATIVE) 03/12/17 21:50 Ur Amphetamine Screen POSITIVE (NEGATIVE) H 03/12/17 21:50 U Methamphetamines Scrn NEGATIVE (NEGATIVE) 03/12/17 21:50 U Benzodiazepines Scrn POSITIVE (NEGATIVE) H 03/12/17 21:50 Urine Cocaine Screen NEGATIVE (NEGATIVE) 03/12/17 21:50 U Cannabinoids Screen NEGATIVE (NEGATIVE) 03/12/17 21:50 Influenza A (Rapid) Negative (Negative) 03/12/17 22:25 Influenza B (Rapid) Negative (Negative) 03/12/17 22:25 Influenza Types A,B Ag - 03/12/17 22:25 - Diagnostic Imaging Results Diagnostic Imaging Results: positive: Final report reviewed Diagnostic Imaging Results Comments: Abdominal ultrasound Impression: 1. Large fatty liver 2. Unremarkable gallbladder and ducts CT angiogram chest Impression: No pulmonary embolism Chest x-ray Impression: Subtle right middle lobe opacity suspicious for acute airspace disease - EKG Results EKG Interpreted Independently: Yes EKG Findings: Sinus tachycardia no ST elevations or ischemic changes noted Issues/Core Measures - Anticipated LOS Anticipated Stay Length: 2 or more midnights - [facility] Requirement for [facility] I expect patient to be DC'd or transferred within 96 hours.: Yes - DVT/VTE - Prophylaxis VTE/DVT Prophylaxis med ordered at admit?: Yes
[2017-03-13] MEDS: ACETAMINOPHEN 325 MG TABLET PO PRN ×3 (01:34→22:12)
[2017-03-13] MEDS: oxyCODONE 5 MG TABLET PO PRN ×3 (01:49→16:43)
[2017-03-13] MEDS ORDERED: ALPRAZolam 0.25 MG TABLET PO ONE (02:43)
[2017-03-13] MEDS: PROCHLORPERAZINE 10 MG/2 ML VIAL IVP PRN ×2 (02:58→12:18)
[2017-03-13 05:28] LABS: BASOPHILS % (AUTO) 0.3 %; EOSINOPHILS % (AUTO) 0.6 %; HGB - HEMOGLOBIN 11.9 g/dL (12.0-16.0); LYMPHOCYTES # (AUTO) 3.1 10^3/uL (1.5-3.5); LYMPHOCYTES % (AUTO) 41.1 %; MEAN CORPUSCULAR HEMOGLOBIN 28.7 pg (27.0-31.0); MEAN CORPUSCULAR HGB CONC 34.3 g/dL (32.0-36.0); MEAN CORPUSCULAR VOLUME 83.8 fL (81.0-99.0); MEAN PLATELET VOLUME 7.3 fL (7.9-10.8); MONOCYTES # (AUTO) 0.4 10^3/uL (0.0-1.0); MONOCYTES % (AUTO) 4.9 %; NEUTROPHILS % (AUTO) 53.1 %; PLT - PLATELET COUNT 169 10^3/uL (130-450); RED BLOOD COUNT 4.15 10^6/uL (4.20-5.40); RED CELL DISTRIBUTION WIDTH 13.1 % (12.0-15.0); WHITE BLOOD COUNT 7.5 x10^3/uL (4.8-10.8)
[2017-03-13 05:38] LABS: BUN - BLOOD UREA NITROGEN 13 mg/dL (6-20); CARBON DIOXIDE - CO2 21 mmol/L (21-32); CHLORIDE 107 mmol/L (101-111); CREATININE 0.6 mg/dL (0.4-1.0); GFR - MDRD 114 (>89); GLUCOSE 111 mg/dL (70-100); SODIUM 139 mmol/L (135-145)
[2017-03-13 05:48] LABS: CRP - C-REACTIVE PROTEIN < 1.0 mg/dL (0-1.0)
[2017-03-13] MEDS: PANTOPRAZOLE 40 MG TABLET PO SCH (06:09)
[2017-03-13] MEDS: SODIUM CHLORIDE FLUSH 0.9% 10 ML SYRINGE IVP SCH ×3 (06:17→21:53)
[2017-03-13] MEDS: SODIUM CHLORIDE 0.9% 1,000 ML IV ONE ×2 (07:03→10:27)
[2017-03-13] MEDS ORDERED: PREGABALIN 100 MG CAPSULE PO SCH (09:00)
[2017-03-13] MEDS ORDERED: ALPRAZolam 0.25 MG TABLET PO SCH (09:00)
[2017-03-13] MEDS: lamoTRIgine 100 MG TABLET PO SCH ×2 (09:53→21:44)
[2017-03-13] MEDS: PREGABALIN 100 MG CAPSULE PO SCH ×2 (09:54→21:44)
[2017-03-13] MEDS: PREGABALIN 25 MG CAPSULE PO SCH ×2 (09:54→21:44)
[2017-03-13] MEDS: KETOROLAC 15 MG/ML VIAL IVP PRN (09:54)
[2017-03-13] MEDS: SACCHAROMYCES BOULARDII 250 MG CAPSULE PO SCH ×2 (09:54→16:43)
[2017-03-13] MEDS: ENOXAPARIN 40 MG/0.4 ML SYRINGE SUBQ SCH (09:55)
[2017-03-13] MEDS: POLYETHYLENE GLYCOL 3350 17 GM PACKET PO SCH (10:01)
[2017-03-13] MEDS: ESTROGENS CONJUGATED 0.9 MG PO SCH (12:39)
[2017-03-13] MEDS: VANCOMYCIN 1.5 GM/NS 500 ML 1.5 GM/500 ML BAG IV SCH (13:17)
[2017-03-14] MEDS: VANCOMYCIN 1.5 GM/NS 500 ML 1.5 GM/500 ML BAG IV SCH (00:56)
[2017-03-14] MEDS: NS W/20 MEQ KCL 1,000 ML IV SCH ×2 (01:01→11:09)
[2017-03-14] MEDS: SODIUM CHLORIDE FLUSH 0.9% 10 ML SYRINGE IVP SCH (01:19)
[2017-03-14] MEDS: KETOROLAC 15 MG/ML VIAL IVP PRN ×2 (01:19→09:05)
[2017-03-14] MEDS: PROCHLORPERAZINE 10 MG/2 ML VIAL IVP PRN (01:19)
[2017-03-14] MEDS: HYDROmorphone 0.5 MG/0.5 ML SYRINGE IVP PRN (01:19)
[2017-03-14 05:52] LABS: BASOPHILS % (AUTO) 0.3 %; EOSINOPHILS # (AUTO) 0.2 10^3/uL (0.0-0.7); EOSINOPHILS % (AUTO) 3.5 %; HGB - HEMOGLOBIN 11.7 g/dL (12.0-16.0); LYMPHOCYTES # (AUTO) 2.7 10^3/uL (1.5-3.5); LYMPHOCYTES % (AUTO) 58.2 %; MEAN CORPUSCULAR HEMOGLOBIN 28.5 pg (27.0-31.0); MEAN CORPUSCULAR HGB CONC 33.9 g/dL (32.0-36.0); MEAN CORPUSCULAR VOLUME 84.1 fL (81.0-99.0); MEAN PLATELET VOLUME 7.2 fL (7.9-10.8); MONOCYTES # (AUTO) 0.2 10^3/uL (0.0-1.0); MONOCYTES % (AUTO) 4.8 %; NEUTROPHILS # (AUTO) 1.6 10^3/uL (1.5-6.6); NEUTROPHILS % (AUTO) 33.2 %; PLT - PLATELET COUNT 153 10^3/uL (130-450); RED BLOOD COUNT 4.11 10^6/uL (4.20-5.40); WHITE BLOOD COUNT 4.7 x10^3/uL (4.8-10.8)
[2017-03-14] MEDS: PANTOPRAZOLE 40 MG TABLET PO SCH (06:01)
[2017-03-14] MEDS: CEFEPIME 2 GM in SODIUM CHLORIDE 0.9% MINIBAG 100 ML IV SCH (06:01)
[2017-03-14 06:16] LABS: CALCIUM 8.2 mg/dL (8.5-10.3); CREATININE 0.5 mg/dL (0.4-1.0)
[2017-03-14] MEDS: ACETAMINOPHEN 325 MG TABLET PO PRN (09:04)
[2017-03-14] MEDS: lamoTRIgine 100 MG TABLET PO SCH (09:16)
[2017-03-14] MEDS: POLYETHYLENE GLYCOL 3350 17 GM PACKET PO SCH (09:16)
[2017-03-14] MEDS: PREGABALIN 100 MG CAPSULE PO SCH (09:17)
[2017-03-14] MEDS: PREGABALIN 25 MG CAPSULE PO SCH (09:18)
[2017-03-14] MEDS: SACCHAROMYCES BOULARDII 250 MG CAPSULE PO SCH (09:18)
[2017-03-14] MEDS: ENOXAPARIN 40 MG/0.4 ML SYRINGE SUBQ SCH (09:18)
[2017-03-14] MEDS: ESTROGENS CONJUGATED 0.9 MG PO SCH (09:19)
--- NOTE | 2017-03-14 11:56 | Discharge Plan ---
Discharge Plan Disposition: 01 Home, Self Care Condition: Fair Prescriptions: Azithromycin [Zithromax] 250 mg PO BID #14 tablet Diet: Regular Activity Restrictions: Activity as Tolerated Shower Restrictions: No Driving Restrictions: No Instruction Topics: Pneumonia Additional Instructions or Follow Up instructions: See your doctor in 1-2 weeks for follow up of this community acquired pneumonia. Take 1 week of antibiotics (new prescription) Resume all your other medications No Smoking: If you smoke, Please STOP! Call for help.
[2017-03-14 12:35] LABS: VANCOMYCIN,TROUGH 7.9 ug/mL (5.0-15.0)
[2017-03-14 13:15] VITALS: BP 134/89
[2017-03-14] MEDS ORDERED: ALPRAZolam 0.25 MG TABLET PO SCH (21:00)
--- NOTE | 2017-04-17 05:29 | DISCHARGE SUMMARY ---
DATE OF SERVICE: 03/14/2017 Physician: Yulissa Wilkes MD DATE OF ADMISSION: 03/12/2017 DATE OF DISCHARGE: 03/14/2017 HISTORY OF PRESENT ILLNESS: This is a 36-year-old, white female with a history of recurrent bladder infections and urinary incontinence requiring a bladder pacemaker that she has had for a year, history of GERD, bipolar disorder with depression and anxiety, chronic low back pain, fibromyalgia, remote history of pulmonary embolism, who presented to the emergency room with right-sided pleuritic chest pain, fever and chills, nausea, vomiting and diarrhea. She was found to be febrile, tachycardic, dehydrated, hypokalemic; and imaging showed a right middle lobe pneumonia, and she was admitted for management of these. HOSPITAL COURSE AND DISCHARGE DIAGNOSES 1. Sepsis. The patient was felt to be septic with fever, elevated lactic acid level of 4.0 and tachycardia. She was started on IV fluids, antiemetics, and her underlying infection was treated (see below). The patient slowly had improvement with no further nausea, vomiting or diarrhea and defervesced, and was discharged home after starting empiric antibiotics to complete a course of treatment. 2. Community-acquired pneumonia. Her evaluation showed right middle lobe infiltrate, and she was started on empiric vancomycin and cefepime. Blood cultures had no growth. She was w switched to oral Levofloxacin to complete a 1- week additional course of treatment. 3. Hypokalemia with dehydration. The patient was clinically dehydrated and potassium level was 3.3. She required hydration with IV fluids and potassium replacement. 4. Bipolar disorder with depression and anxiety. Her medications were continued throughout this course. LABS AND IMAGING: Reviewed and summarized above. ALLERGIES 1. SULFA. 2. TRIMETHOPRIM. 3. AMOXICILLIN. 4. CODEINE. 5. LEVAQUIN. 6. AUGMENTIN. MEDICATIONS AT THE TIME OF DISCHARGE: Zithromax 250 mg p.o. daily for 1 more week. Continuation of all her prehospital medications includin. Xanax 1-2 mg p.o. p.r.n. 2. Conjugated estrogen tablet. 3. Lamictal 150 mg daily. 4. Levaquin 750 mg p.o. daily for 1 additional. 5. Tylenol With Codeine p.r.n. pain. 6. Protonix 20 mg daily. 7. Lyrica 225 mg p.o. daily. CONDITION AT DISCHARGE: Stable. PHYSICAL EXAMINATION AT DISCHARGE VITAL SIGNS: Blood pressure 134/89, pulse of 101 in sinus rhythm, afebrile, oxygen saturation 95 percent on room air. HEENT: Unremarkable. NECK: Without JVD, thyromegaly or carotid bruits or lymphadenopathy. CHEST: Clear. HEART: Sounds normal. ABDOMEN: Soft with normal bowel sounds, nontender. EXTREMITIES: Without edema. NEUROLOGIC: Intact. CODE STATUS: Full Code FOLLOWUP: Follow up with her PCP in 1-2 weeks. TIME REQUIRED TO COMPLETE THIS ENTIRE DISCHARGE: Thirty minutes. TD: 04/17/2017 06:28 [id number]
== END 2017-03-14 13:52 | disposition home or self-care (01) | DRG 871 ==
LOC: ED 19:25 → MS2 23:19
PROVIDERS: ADMIT Internal Medicine; ATTEND Internal Medicine
DX: A41.9 Sepsis, unspecified organism (principal); J18.1 Lobar pneumonia, unspecified organism; R10.31 Right lower quadrant pain; E87.6 Hypokalemia; F31.9 Bipolar disorder, unspecified; F41.9 Anxiety disorder, unspecified; K21.9 Gastro-esophageal reflux disease without esophagitis; G89.29 Other chronic pain; M54.9 Dorsalgia, unspecified; M79.7 Fibromyalgia; Z79.891 Long term (current) use of opiate analgesic; Z79.899 Other long term (current) drug therapy; Z98.890 Other specified postprocedural states; Z86.711 Personal history of pulmonary embolism; Z87.440 Personal history of urinary (tract) infections
CPT/HCPCS: 36415; 71020; 71275; 76705; 80048; 80053; 80306; 81001; 81003; 81025; 83605; 83690; 84484; 85025; 85651; 86140; 87040; 87086; 87275; 87276; 93005; 96365; 96366; 96367; 96368; 96375; 96376; 99284; 99285

== ENCOUNTER 2017-04-11 13:31 | Emergency (ER) | payer OTHER ==
[2017-04-11] MEDS ORDERED: KETOROLAC 60 MG/2 ML VIAL IVP STA (14:21)
[2017-04-11] MEDS ORDERED: HYDROmorphone 1 MG/ML SYRINGE IVP STA ×2 (14:21→16:15)
[2017-04-11] MEDS ORDERED: SODIUM CHLORIDE 0.9% 1,000 ML IV ONE (14:21)
[2017-04-11] MEDS ORDERED: PROMETHAZINE INJ 25 MG in SODIUM CHLORIDE 0.9% 50 ML IV STA (14:21)
[2017-04-11 14:33] LABS: BILIRUBIN,URINE NEGATIVE (NEGATIVE); GLUCOSE, URINE (UA) NEGATIVE (NEGATIVE); KETONES,URINE (UA) NEGATIVE (NEGATIVE); LEUKOCYTE ESTERASE, URINE NEGATIVE (NEGATIVE); NITRITE,URINE POSITIVE (NEGATIVE); OCCULT BLOOD,URINE LARGE (NEGATIVE); PROTEIN,URINE 100 mg/dL (NEGATIVE); UROBILINOGEN,URINE 0.2 (NORMAL) E.U./dL (NORMAL)
[2017-04-11 14:38] LABS: CLARITY,URINE CLOUDY (CLEAR)
[2017-04-11 14:45] LABS: RBC,URINE TNTC /HPF (0-5); SQUAMOUS EPITHELIAL CELL,UR NONE SEEN (<= Few)
[2017-04-11 14:46] LABS: BACTERIA,URINE Moderate /HPF (None Seen)
--- NOTE | 2017-04-11 15:14 | ED Physician Documentation ---
PD HPI ABD PAIN - Stated complaint Stated Complaint: BLOOD IN URINE/ABD PX - Chief complaint Chief Complaint: General - History obtained from History obtained from: Patient, Family - History of Present Illness Timing - onset: Today Timing - duration: Hours Timing - details: Abrupt onset, Still present Quality: Sharp, Pain Location: Suprapubic Radiation: Lower back Improved by: Laying still Worsened by: Moving, Position, Palpation Associated symptoms: Nausea, Dysuria, Hematuria Similar symptoms before: Diagnosis (UTI) Recently seen: Other - Additional information Additional information: 36-year-old female with a history of chronic urinary tract infections has had a bladder stimulator placed about 1 year ago and she recently had the stimulator removed from the right side to the left side. She had this done about 1 month ago and she believes that the stimulator is helping with her being able to empty her bladder. Today she is developed some suprapubic pain consistent with what she has had previously with bladder infection and she has developed some blood in the urine. She is quite uncomfortable with this. She does indicate that in the prior she has had catheterization that needed to be done under general anesthetic. She had a one-point done self-catheterization and then this began to fail as she began to have more and more symptoms with the catheterization itself. Review of Systems Constitutional: denies: Fever Eyes: denies: Decreased vision Nose: denies: Congestion Throat: denies: Sore throat Cardiac: denies: Chest pain / pressure Respiratory: denies: Dyspnea, Cough GI: reports: Abdominal Pain, Nausea : reports: Dysuria, Frequency Skin: denies: Rash Musculoskeletal: reports: Back pain. denies: Neck pain, Extremity pain Neurologic: denies: Generalized weakness, Focal weakness, Numbness PD PAST MEDICAL HISTORY - Past Medical History Cardiovascular: Pulmonary embolism, Other Respiratory: Pneumonia Neuro: Headache/migraine Endocrine/Autoimmune: None GI: GERD CHANNEL MANAGER: None : Chronic bladder infection, Kidney stones, Other HEENT: None Psych: Depression, Anxiety, Bipolar disorder, Panic attacks, Post traumatic stress disorder Musculoskeletal: Fibromyalgia, Chronic back pain Derm: None - Past Surgical History Past Surgical History: Yes Ortho: Other /CHANNEL MANAGER: section, Hysterectomy, Other HEENT: Tonsil/Adenoidectomy - Present Medications Home Medications: Ambulatory Orders Medication Instructions Recorded Confirmed lamoTRIgine [Lamictal] 150 mg PO BID 11/04/12 02/10/17 Alprazolam [Xanax] 1 - 2 mg PO DAILY 10/29/14 02/10/17 Pregabalin [Lyrica] 225 mg PO BID 04/04/15 02/10/17 Estrogens, Conjugated [Premarin] 0.9 mg PO DAILY 11/10/16 02/10/17 Hyoscyamine Sulfate [Levsin-Sl] 0.125 mg SL Q4H PRN #20 tab.subl 01/13/17 Pantoprazole Sodium [Protonix] 20 mg PO DAILY 01/13/17 02/10/17 oxyCODONE/ACET 5/325 [Percocet 5 1 each PO Q6H PRN #5 tablet 02/10/17 mg/325 mg] Levofloxacin [Levaquin] 750 mg PO DAILY #7 tablet 03/14/17 Fluconazole [Diflucan] 150 mg PO ONCE #1 tablet 04/11/17 Levofloxacin [Levaquin] 750 mg PO DAILY #7 tablet 04/11/17 - Allergies Allergies/Adverse Reactions: Allergies Allergy/AdvReac Type Severity Reaction Status Date / Time sulfamethoxazole Allergy Severe Hives Verified 03/20/17 09:18 [From Bactrim] trimethoprim [From Bactrim] Allergy Severe Hives Verified 03/20/17 09:18 amoxicillin trihydrate * Allergy Nausea Verified 12/30/16 21:10 [From Augmentin] azithromycin [From Zithromax] Allergy Anaphylaxis Verified 12/30/16 21:10 codeine [Codeine] Allergy Itching Verified 12/30/16 21:10 levofloxacin [From Levaquin] Allergy vomiting Verified 12/30/16 21:10 potassium clavulanate * Allergy Nausea Verified 12/30/16 21:10 [From Augmentin] Sulfa (Sulfonamide Allergy Itching Verified 12/30/16 21:10 Antibiotics) - Social History Does the pt smoke?: No Smoking Status: Never smoker Does the pt drink ETOH?: Yes Does the pt have substance abuse?: No - Immunizations Immunizations are current?: Yes - POLST Patient has POLST: No POLST Status: Full Code PD ED PE NORMAL - Vitals Vital signs reviewed: Yes (tachy and hypertensive) - General General: Alert and oriented X 3, Well developed/nourished, Other (36 y/o female appears uncomfortable at rest and is sitting in a splinted position. ) - HEENT HEENT: Atraumatic, PERRL - Neck Neck: Supple, no meningeal sign - Cardiac Cardiac: RRR, No murmur - Respiratory Respiratory: No respiratory distress, Clear bilaterally - Abdomen Abdomen: Soft, Other (There is marked suprapubic tenderness without gaurding or rebound tenderness. There is no left or right upper quadrant tenderness. ) - Back Back: No CVA TTP, No spinal TTP - Derm Derm: Normal color, Warm and dry, No rash - Extremities Extremities: No deformity, No edema - Neuro Neuro: No motor deficit, No sensory deficit Eye Opening: Spontaneous Motor: Obeys Commands Verbal: Oriented GCS Score: 15 - Psych Psych: Normal mood, Normal affect Results - Vitals Vitals: Vital Signs - 24 hr 04/11/17 04/11/17 13:41 14:22 Temperature 36.5 C 36.5 C Heart Rate 118 H 128 H Respiratory 185 H 20 Rate Blood Pressure 151/109 H 156/109 H O2 Saturation 98 96 Oxygen O2 Source Room air - Labs Labs: Laboratory Tests 04/11/17 04/11/17 04/11/17 13:45 15:05 15:05 WBC 5.2 RBC 5.08 Hgb 14.1 Hct 42.0 MCV 82.6 MCH 27.7 MCHC 33.5 RDW 13.1 Plt Count 166 MPV 7.4 L Neut # 2.1 Lymph # 2.6 [place] # 0.2 Eos # 0.2 Baso # 0.0 Absolute Nucleated RBC 0.00 Nucleated RBC % 0.0 Sodium 136 Potassium 3.9 Chloride 105 Carbon Dioxide 20 L Anion Gap 11.0 BUN 15 Creatinine 0.5 Estimated GFR (MDRD) 140 Glucose 99 Calcium 8.9 Total Bilirubin 0.5 AST 58 H ALT 68 H Alkaline Phosphatase 54 Total Protein 7.7 Albumin 4.6 Globulin 3.1 Albumin/Globulin Ratio 1.5 Lipase 51 Urine Color RED/BLOODY Urine Clarity CLOUDY Urine pH 6.0 Ur Specific [place] 1.015 Urine Protein 100 H Urine Glucose (UA) NEGATIVE Urine Ketones NEGATIVE Urine Occult Blood LARGE H Urine Nitrite POSITIVE H Urine Bilirubin NEGATIVE Urine Urobilinogen 0.2 (NORMAL) Ur Leukocyte Esterase NEGATIVE Urine RBC TNTC H Urine WBC 0-3 Ur Squamous Epith Cells NONE SEEN Urine Bacteria Moderate H Ur Microscopic Review INDICATED Urine Culture Comments INDICATED Procedures - Bedside sono Bedside sono by EMP: With use of bedside ultrasound the left and right kidneys are examined and there is no evidence of hydronephrosis. The right kidney is slightly tender to sonographic palpation of the left does not. The bladder does have urine present in it. PD MEDICAL DECISION MAKING - ED course Complexity details: reviewed old records, reviewed results, re-evaluated patient , considered differential, d/w patient, d/w family ED course: 36-year-old female with a history of interstitial cystitis and chronic urinary tract infections has bladder stimulator in place that is recently been moved and she is adjusting it. She has developed urinary tract infection symptoms and has significant hydro-hematuria and bacteria present with not a lot of white cells. She is treated in the emergency department for the discomfort of the infection with intravenous saline Toradol and hydromorphone and she is administered Rocephin intravenously. We will place her on some oral antibiotic and here in the emergency department she was given Rocephin intravenously. Her urine will be cultured and she will follow-up with her urologist at the [facility] in 1 week. Departure - Departure Disposition: 01 Home, Self Care Clinical Impression: Urinary tract infectious disease Condition: Stable Instructions: ED UTI Cystitis Female Follow-Up: ABI ANNE MD [Primary Care Provider] - Prescriptions: Fluconazole [Diflucan] 150 mg PO ONCE #1 tablet Levofloxacin [Levaquin] 750 mg PO DAILY #7 tablet
[2017-04-11 15:21] LABS: BASOPHILS % (AUTO) 0.3 %; EOSINOPHILS # (AUTO) 0.2 10^3/uL (0.0-0.7); EOSINOPHILS % (AUTO) 3.3 %; HGB - HEMOGLOBIN 14.1 g/dL (12.0-16.0); LYMPHOCYTES # (AUTO) 2.6 10^3/uL (1.5-3.5); LYMPHOCYTES % (AUTO) 50.8 %; MEAN CORPUSCULAR HEMOGLOBIN 27.7 pg (27.0-31.0); MEAN CORPUSCULAR HGB CONC 33.5 g/dL (32.0-36.0); MEAN CORPUSCULAR VOLUME 82.6 fL (81.0-99.0); MEAN PLATELET VOLUME 7.4 fL (7.9-10.8); MONOCYTES # (AUTO) 0.2 10^3/uL (0.0-1.0); MONOCYTES % (AUTO) 4.8 %; NEUTROPHILS # (AUTO) 2.1 10^3/uL (1.5-6.6); NEUTROPHILS % (AUTO) 40.8 %; PLT - PLATELET COUNT 166 10^3/uL (130-450); RED BLOOD COUNT 5.08 10^6/uL (4.20-5.40); RED CELL DISTRIBUTION WIDTH 13.1 % (12.0-15.0); WHITE BLOOD COUNT 5.2 x10^3/uL (4.8-10.8)
[2017-04-11 15:34] LABS: ALBUMIN 4.6 g/dL (3.2-5.5); ALBUMIN/GLOBULIN RATIO 1.5 (1.0-2.2); BILIRUBIN,TOTAL 0.5 mg/dL (0.2-1.0); CALCIUM 8.9 mg/dL (8.5-10.3); CREATININE 0.5 mg/dL (0.4-1.0); TOTAL PROTEIN 7.7 g/dL (6.7-8.2)
[2017-04-11] MEDS ORDERED: cefTRIAXone 1 GM in SODIUM CHLORIDE 0.9% MINIBAG 100 ML IV STA (16:15)
[2017-04-11 16:27] VITALS: BP 156/102
== END 2017-04-11 16:58 | disposition home or self-care (01) ==
LOC: ED 13:31
DX: N39.0 Urinary tract infection, site not specified (principal); R31.9 Hematuria, unspecified
CPT/HCPCS: 36415; 80053; 81001; 83690; 85025; 87086; 96365; 96367; 96375; 96376; 99284; J1170; J7040; 81003; 87077; 96374

== ENCOUNTER 2017-05-03 14:40 | Outpatient (CLI) | payer OTHER ==
[2017-05-03 15:06] LABS: BILIRUBIN,URINE NEGATIVE (NEGATIVE); GLUCOSE, URINE (UA) NEGATIVE (NEGATIVE); KETONES,URINE (UA) NEGATIVE (NEGATIVE); LEUKOCYTE ESTERASE, URINE NEGATIVE (NEGATIVE); NITRITE,URINE POSITIVE (NEGATIVE); OCCULT BLOOD,URINE NEGATIVE (NEGATIVE); PROTEIN,URINE NEGATIVE (NEGATIVE); UROBILINOGEN,URINE 0.2 (NORMAL) E.U./dL (NORMAL)
[2017-05-03 15:11] LABS: CLARITY,URINE CLOUDY (CLEAR)
[2017-05-03 15:13] LABS: RBC,URINE 0-5 /HPF (0-5); SQUAMOUS EPITHELIAL CELL,UR FEW Squamous (<= Few)
[2017-05-03 15:14] LABS: AMORPHOUS SEDIMENT,UR Few /LPF; BACTERIA,URINE Many /HPF (None Seen)
== END 2017-05-03 14:41 | disposition home or self-care (01) ==
LOC: LAB 14:40
DX: R31.0 Gross hematuria (principal)
CPT/HCPCS: 81001; 87086

== ENCOUNTER 2017-05-29 16:09 | Emergency (ER) | payer OTHER ==
--- NOTE | 2017-05-29 17:42 | ED Physician Documentation ---
PD HPI HEADACHE - Stated complaint Stated Complaint: MIGRAINE,DIFF URINATING - Chief complaint Chief Complaint: Neuro - History obtained from History obtained from: Patient - History of Present Illness Timing - onset: Today, How many days ago (1 day of worse headache like migraine , but has had recurring migraines and general headache for over a month.) Quality: Thunderclap, Aching, Like head is exploding, Other Associated symptoms: No: Fever, Stiff neck, Nausea, Vomiting Worsened by: Noise Contributing factors: No: Anticoagulated, Recent illness, Trauma Similar symptoms before: Diagnosis (migraines and interstitial cystitis, recurring UTis.) Review of Systems Constitutional: reports: Myalgias. denies: Fever, Chills Skin: reports: Rash, Lesions Musculoskeletal: reports: Neck pain, Back pain Neurologic: reports: Generalized weakness, Syncope, Headache PD PAST MEDICAL HISTORY - Past Medical History Past Medical History: Yes Cardiovascular: Pulmonary embolism, Other Respiratory: Pneumonia Neuro: Headache/migraine Endocrine/Autoimmune: None GI: GERD CRISIS THERAPIST: None : Chronic bladder infection, Kidney stones, Other HEENT: None Psych: Depression, Anxiety, Bipolar disorder, Panic attacks, Post traumatic stress disorder Musculoskeletal: Fibromyalgia, Chronic back pain Derm: None - Past Surgical History Past Surgical History: Yes Ortho: Other /CRISIS THERAPIST: section, Hysterectomy, Other HEENT: Tonsil/Adenoidectomy - Present Medications Home Medications: Ambulatory Orders Medication Instructions Recorded Confirmed lamoTRIgine [Lamictal] 150 mg PO BID 11/04/12 02/10/17 Alprazolam [Xanax] 1 - 2 mg PO DAILY 10/29/14 02/10/17 Pregabalin [Lyrica] 225 mg PO BID 04/04/15 02/10/17 Estrogens, Conjugated [Premarin] 0.9 mg PO DAILY 11/10/16 02/10/17 Hyoscyamine Sulfate [Levsin-Sl] 0.125 mg SL Q4H PRN #20 tab.subl 01/13/17 Pantoprazole Sodium [Protonix] 20 mg PO DAILY 01/13/17 02/10/17 oxyCODONE/ACET 5/325 [Percocet 5 1 each PO Q6H PRN #5 tablet 02/10/17 mg/325 mg] Levofloxacin [Levaquin] 750 mg PO DAILY #7 tablet 03/14/17 Fluconazole [Diflucan] 150 mg PO ONCE #1 tablet 04/11/17 Levofloxacin [Levaquin] 750 mg PO DAILY #7 tablet 04/11/17 Dexamethasone [Decadron] 4 mg PO DAILY #5 tablet 05/29/17 Oxycodone HCl/Acetaminophen 1 each PO Q6H PRN #15 tablet 05/29/17 [Percocet 5-325 mg Tablet] Phenazopyridine [Pyridium] 100 mg PO TID PRN #15 tablet 05/29/17 Promethazine [Phenergan] 25 - 50 mg PO Q6H PRN #30 tab 05/29/17 - Allergies Allergies/Adverse Reactions: Allergies Allergy/AdvReac Type Severity Reaction Status Date / Time sulfamethoxazole Allergy Severe Hives Verified 03/20/17 09:18 [From Bactrim] trimethoprim [From Bactrim] Allergy Severe Hives Verified 03/20/17 09:18 amoxicillin trihydrate * Allergy Nausea Verified 12/30/16 21:10 [From Augmentin] azithromycin [From Zithromax] Allergy Anaphylaxis Verified 12/30/16 21:10 codeine [Codeine] Allergy Itching Verified 12/30/16 21:10 levofloxacin [From Levaquin] Allergy vomiting Verified 12/30/16 21:10 potassium clavulanate * Allergy Nausea Verified 12/30/16 21:10 [From Augmentin] Sulfa (Sulfonamide Allergy Itching Verified 12/30/16 21:10 Antibiotics) - Social History Does the pt smoke?: No Smoking Status: Never smoker Does the pt drink ETOH?: Yes Does the pt have substance abuse?: No - Immunizations Immunizations are current?: Yes - POLST Patient has POLST: No POLST Status: Full Code PD ED PE NORMAL - Vitals Vital signs reviewed: Yes - General General: Alert and oriented X 3, No acute distress, Well developed/nourished - HEENT HEENT: PERRL, EOMI (light sensitive, and noise sensitive as well.), Pharynx benign - Neck Neck: Supple, no meningeal sign, No adenopathy - Cardiac Cardiac: RRR, No murmur - Respiratory Respiratory: Clear bilaterally - Abdomen Abdomen: Normal bowel sounds, Soft, Non tender, Non distended - Female Female : Deferred - Back Back: No CVA TTP - Derm Derm: Normal color, Warm and dry - Neuro Neuro: Alert and oriented X 3, No motor deficit, Normal speech Eye Opening: Spontaneous Motor: Obeys Commands Verbal: Oriented GCS Score: 15 - Psych Psych: Normal mood Results - Vitals Vitals: Oxygen O2 Source Room air - Labs Labs: Laboratory Tests 05/29/17 05/29/17 05/29/17 18:15 18:33 18:33 WBC 5.6 RBC 5.04 Hgb 14.0 Hct 41.2 MCV 81.7 MCH 27.8 MCHC 34.0 RDW 13.6 Plt Count 221 MPV 7.2 L Neut # 1.8 Lymph # 3.3 [place] # 0.4 Eos # 0.1 Baso # 0.0 Absolute Nucleated RBC 0.00 Nucleated RBC % 0.1 Sodium 140 Potassium 4.1 Chloride 105 Carbon Dioxide 25 Anion Gap 10.0 BUN 14 Creatinine 0.5 Estimated GFR (MDRD) 140 Glucose 107 H Calcium 10.1 Total Bilirubin 0.6 AST 55 H ALT 84 H Alkaline Phosphatase 52 Total Protein 7.5 Albumin 4.5 Globulin 3.0 Albumin/Globulin Ratio 1.5 Lipase 31 Urine Color YELLOW Urine Clarity CLEAR Urine pH 6.5 Ur Specific [place] 1.010 Urine Protein NEGATIVE Urine Glucose (UA) NEGATIVE Urine Ketones NEGATIVE Urine Occult Blood NEGATIVE Urine Nitrite NEGATIVE Urine Bilirubin NEGATIVE Urine Urobilinogen 0.2 (NORMAL) Ur Leukocyte Esterase NEGATIVE Ur Microscopic Review NOT INDICATED Urine Culture Comments NOT INDICATED Urine HCG, Qual NEGATIVE PD MEDICAL DECISION MAKING - ED course Complexity details: reviewed results (UA is normal; presume exac of IC. ), re- evaluated patient (feeling much better with ELIZONDO about gone after IV meds. ), considered differential, d/w patient Departure - Departure Disposition: 01 Home, Self Care Clinical Impression: Interstitial cystitis, Dysuria Migraine Qualifiers: Migraine type: without aura Status migrainosus presence: with status migrainosus Intractability: not intractable Qualified Code(s): G43.001 - Migraine without aura, not intractable, with status migrainosus Condition: Stable Record reviewed to determine appropriate education?: Yes Instructions: ED Dysuria Uncertain Cause, ED Headache Migraine Follow-Up: ABI ANNE MD [Primary Care Provider] - Prescriptions: Dexamethasone [Decadron] 4 mg PO DAILY #5 tablet Oxycodone HCl/Acetaminophen [Percocet 5-325 mg Tablet] 1 each PO Q6H PRN #15 tablet PRN Reason: Pain Phenazopyridine [Pyridium] 100 mg PO TID PRN #15 tablet PRN Reason: Pain Promethazine [Phenergan] 25 - 50 mg PO Q6H PRN #30 tab PRN Reason: Nausea / Vomiting Comments: For nausea and headache he can use the Phenergan (promethazine) which can help with migraine as well. Decadron daily for 5 more days to help with both headache and the interstitial cystitis. Phenazopyridine 3 times a day if needed for the discomfort. He can use the promethazine for nausea if needed with that. Continue your other usual medications. Oxycodone if needed for pain short-term. Follow-up with your primary care. Discharge Date/Time: 05/29/17 20:36
[2017-05-29] MEDS ORDERED: KETOROLAC 60 MG/2 ML VIAL IVP STA (18:10)
[2017-05-29] MEDS ORDERED: PHENAZOPYRIDINE 100 MG TABLET PO STA (18:11)
[2017-05-29] MEDS ORDERED: diphenhydrAMINE INJ 50 MG/ML VIAL IVP STA (18:11)
[2017-05-29] MEDS ORDERED: METOCLOPRAMIDE 10 MG/2 ML VIAL IVP STA (18:11)
[2017-05-29] MEDS ORDERED: HYDROmorphone 1 MG/ML SYRINGE IVP STA (18:11)
[2017-05-29] MEDS ORDERED: DEXAMETHASONE 10 MG/ML VIAL IVP STA (18:12)
[2017-05-29 18:44] LABS: BILIRUBIN,URINE NEGATIVE (NEGATIVE); GLUCOSE, URINE (UA) NEGATIVE (NEGATIVE); KETONES,URINE (UA) NEGATIVE (NEGATIVE); LEUKOCYTE ESTERASE, URINE NEGATIVE (NEGATIVE); NITRITE,URINE NEGATIVE (NEGATIVE); OCCULT BLOOD,URINE NEGATIVE (NEGATIVE); PH,URINE 6.5 PH (5.0-7.5); PROTEIN,URINE NEGATIVE (NEGATIVE); UROBILINOGEN,URINE 0.2 (NORMAL) E.U./dL (NORMAL)
[2017-05-29 18:51] LABS: BASOPHILS % (AUTO) 0.3 %; EOSINOPHILS # (AUTO) 0.1 10^3/uL (0.0-0.7); EOSINOPHILS % (AUTO) 2.5 %; LYMPHOCYTES # (AUTO) 3.3 10^3/uL (1.5-3.5); LYMPHOCYTES % (AUTO) 59.6 %; MEAN CORPUSCULAR HEMOGLOBIN 27.8 pg (27.0-31.0); MEAN CORPUSCULAR VOLUME 81.7 fL (81.0-99.0); MEAN PLATELET VOLUME 7.2 fL (7.9-10.8); MONOCYTES # (AUTO) 0.4 10^3/uL (0.0-1.0); MONOCYTES % (AUTO) 6.2 %; NEUTROPHILS # (AUTO) 1.8 10^3/uL (1.5-6.6); NEUTROPHILS % (AUTO) 31.4 %; PLT - PLATELET COUNT 221 10^3/uL (130-450); RED BLOOD COUNT 5.04 10^6/uL (4.20-5.40); RED CELL DISTRIBUTION WIDTH 13.6 % (12.0-15.0); WHITE BLOOD COUNT 5.6 x10^3/uL (4.8-10.8)
[2017-05-29 18:54] LABS: CLARITY,URINE CLEAR (CLEAR); HCG UR QUAL NEGATIVE
[2017-05-29 19:02] LABS: ALBUMIN 4.5 g/dL (3.2-5.5); ALBUMIN/GLOBULIN RATIO 1.5 (1.0-2.2); BILIRUBIN,TOTAL 0.6 mg/dL (0.2-1.0); CALCIUM 10.1 mg/dL (8.5-10.3); CREATININE 0.5 mg/dL (0.4-1.0); TOTAL PROTEIN 7.5 g/dL (6.7-8.2)
[2017-05-29 19:39] VITALS: BP 123/83
[2017-05-29] MEDS ORDERED: oxyCOD/ACETAMIN 5 MG/325 MG TABLET PO STA (20:21)
== END 2017-05-29 20:36 | disposition home or self-care (01) ==
LOC: ED 16:09
DX: G43.001 Migraine without aura, not intractable, with status migrainosus (principal); N30.10 Interstitial cystitis (chronic) without hematuria; Z86.711 Personal history of pulmonary embolism
CPT/HCPCS: 36415; 80053; 81003; 81025; 83690; 85025; 96374; 96375; 99283; 99284; A9270; J1170; J1200; J2765; 81001; 87086

== ENCOUNTER 2017-06-16 23:54 | Outpatient (CLI) | payer OTHER | END 2017-06-16 23:55 | disposition critical access hospital (66) | LOC: EMS 23:54 | PROVIDERS: ATTEND Surgery | DX: R07.1 Chest pain on breathing (principal) | CPT/HCPCS: A0425; A0427 ==

== ENCOUNTER 2017-06-17 00:11 | Emergency (ER) | payer OTHER ==
--- NOTE | 2017-06-17 01:12 | ED Physician Documentation ---
PD HPI CHEST PAIN - Stated complaint Stated Complaint: LUNG, BACK AND SHOULDER BLADE PAIN - Chief complaint Chief Complaint: Resp - History obtained from History obtained from: Patient - History of Present Illness Timing - onset: Enter time (21:30), Today Timing - onset during: Rest Timing - details: Abrupt onset Pain level max: 10 Pain level now: 10 Quality: Pain Location: Left chest Radiation: Back Improved by: Rest Worsened by: Inspiration, Movement, Palpation, Position Associated symptoms: Shortness of air Similar symptoms before: Other (h/o PE; she has had previous ED visits with similar c/o which include admission for pneumonia as well as unremarkable testing and d/c home without specific diagnosis) - Additional information Additional information: patient says she was lying on ground at approximately 9:30 PM tonight and turned to one side, had sudden onset pain left flank, left low chest and left mid-level back. Worse with inspiration, palpation, position. This is her [address] [facility] ED visit since 2011. Review of Systems Constitutional: denies: Fever, Chills, Sweats Cardiac: reports: Chest pain / pressure. denies: Palpitations, Pedal edema, Calf pain Respiratory: reports: Dyspnea. 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: None : Chronic bladder infection, Kidney stones, Other HEENT: None Psych: Depression, Anxiety, Bipolar disorder, Panic attacks, Post traumatic stress disorder Musculoskeletal: Fibromyalgia, Chronic back pain Derm: None - Past Surgical History Past Surgical History: Yes Ortho: Other /CASE REVIEWER: section, Hysterectomy, Other HEENT: Tonsil/Adenoidectomy - Present Medications Home Medications: Ambulatory Orders Medication Instructions Recorded Confirmed lamoTRIgine [Lamictal] 150 mg PO BID 11/04/12 06/17/17 Alprazolam [Xanax] 1 - 2 mg PO DAILY 10/29/14 06/17/17 Pregabalin [Lyrica] 225 mg PO BID 04/04/15 06/17/17 Estrogens, Conjugated [Premarin] 0.9 mg PO DAILY 11/10/16 02/10/17 Hyoscyamine Sulfate [Levsin-Sl] 0.125 mg SL Q4H PRN #20 tab.subl 01/13/17 Pantoprazole Sodium [Protonix] 20 mg PO DAILY 01/13/17 02/10/17 oxyCODONE/ACET 5/325 [Percocet 5 1 each PO Q6H PRN #5 tablet 02/10/17 mg/325 mg] Levofloxacin [Levaquin] 750 mg PO DAILY #7 tablet 03/14/17 Fluconazole [Diflucan] 150 mg PO ONCE #1 tablet 04/11/17 Levofloxacin [Levaquin] 750 mg PO DAILY #7 tablet 04/11/17 Dexamethasone [Decadron] 4 mg PO DAILY #5 tablet 05/29/17 Oxycodone HCl/Acetaminophen 1 each PO Q6H PRN #15 tablet 05/29/17 [Percocet 5-325 mg Tablet] Phenazopyridine [Pyridium] 100 mg PO TID PRN #15 tablet 05/29/17 Promethazine [Phenergan] 25 - 50 mg PO Q6H PRN #30 tab 05/29/17 oxyCODONE/ACET 5/325 [Percocet 5 1 - 2 each PO Q6H PRN #14 tablet 06/17/17 mg/325 mg] - Allergies Allergies/Adverse Reactions: Allergies Allergy/AdvReac Type Severity Reaction Status Date / Time sulfamethoxazole Allergy Severe Hives Verified 06/17/17 00:19 [From Bactrim] trimethoprim [From Bactrim] Allergy Severe Hives Verified 06/17/17 00:19 amoxicillin trihydrate * Allergy Nausea Verified 06/17/17 00:19 [From Augmentin] azithromycin [From Zithromax] Allergy Anaphylaxis Verified 06/17/17 00:19 codeine [Codeine] Allergy Itching Verified 06/17/17 00:19 levofloxacin [From Levaquin] Allergy vomiting Verified 06/17/17 00:19 potassium clavulanate * Allergy Nausea Verified 12/30/16 21:10 [From Augmentin] Sulfa (Sulfonamide Allergy Itching Verified 06/17/17 00:19 Antibiotics) - Social History Does the pt smoke?: No Smoking Status: Never smoker Does the pt drink ETOH?: Yes Does the pt have substance abuse?: No - Immunizations Immunizations are current?: Yes - POLST Patient has POLST: No POLST Status: Full Code PD ED PE NORMAL - Vitals Vital signs reviewed: Yes - General General: Alert and oriented X 3, Well developed/nourished, Other (appears to be uncomfortable at times during H+P) - HEENT HEENT: Moist mucous membranes - Neck Neck: Supple, no meningeal sign - Cardiac Cardiac: No murmur, No gallop, No rub, Other (tachycardia) - Respiratory Respiratory: No respiratory distress, Clear bilaterally - Abdomen Abdomen: Soft, Non tender - Back Back: No CVA TTP, No spinal TTP - Derm Derm: Normal color, Warm and dry, No rash - Extremities Extremities: No edema Results - Vitals Vitals: Vital Signs - 24 hr 06/17/17 06/17/17 06/17/17 00:15 00:30 02:22 Temperature 37.3 C Heart Rate 140 H 146 H 149 H Respiratory 24 16 22 Rate Blood Pressure 148/82 H 157/107 H 149/107 H O2 Saturation 94 95 96 06/17/17 06/17/17 06/17/17 03:02 04:00 05:38 Temperature Heart Rate 150 H 139 H 120 H Respiratory 24 20 18 Rate Blood Pressure 152/95 H 139/94 H 136/86 H O2 Saturation 95 95 95 06/17/17 06:35 Temperature Heart Rate 120 H Respiratory 18 Rate Blood Pressure 152/99 H O2 Saturation 95 Oxygen O2 Source Room air - EKG (time done) No standard instances Rate: Tachy (146) Rhythm: Sinus tachycardia [place]: Normal Intervals: Normal [place] QRS: Normal Ischemia: Normal ST segments - Labs Labs: Laboratory Tests 06/17/17 06/17/17 06/17/17 01:40 01:40 02:08 WBC 8.9 RBC 5.22 Hgb 14.8 Hct 43.1 MCV 82.6 MCH 28.3 MCHC 34.3 RDW 14.0 Plt Count 217 MPV 7.2 L Neut # 6.2 Lymph # 2.4 [place] # 0.2 Eos # 0.0 Baso # 0.1 Absolute Nucleated RBC 0.00 Nucleated RBC % 0.0 Sodium 137 Potassium 4.0 Chloride 102 Carbon Dioxide 19 L Anion Gap 16.0 H BUN 11 Creatinine 0.5 Estimated GFR (MDRD) 140 Glucose 185 H Calcium 10.0 Urine Color LT. YELLOW Urine Clarity CLOUDY Urine pH 6.5 Ur Specific [place] 1.020 Urine Protein 30 H Urine Glucose (UA) >=1000 H Urine Ketones TRACE Urine Occult Blood TRACE-INTA Urine Nitrite NEGATIVE Urine Bilirubin NEGATIVE Urine Urobilinogen 0.2 (NORMAL) Ur Leukocyte Esterase TRACE H Urine RBC 0-5 Urine WBC 6-10 H Ur Squamous Epith Cells NONE SEEN Urine Bacteria Many H Ur Microscopic Review INDICATED Urine Culture Comments INDICATED - Rads (name of study) CT chest (PE study) Radiology: Prelim report reviewed, See rad report PD MEDICAL DECISION MAKING - ED course Complexity details: reviewed old records, reviewed results, re-evaluated patient , considered differential, d/w patient ED course: No findings on tonight's testing (including CT chest) that would explain etiology of patient's symptoms. She has an incidental left pulmonary nodule that she says she was unaware of. It is 9x9mm, but was noted on previous study ( 8x8mm). She had tachycardia as high as 150s as well as high blood pressure readings; these both seemed to be in proportion to patient's reported level of pain. She remained tachycardic at time of discharge (120), and although she was in NAD, she reported she continued to have discomfort although much improved after IV medications. She had similar tachycardia in February 2017 which did not respond to IV adenosine; at that time she was admitted for pneumonia, but there is no evidence of pneumonia on this work-up tonight. Departure - Departure Disposition: 01 Home, Self Care Clinical Impression: Flank pain Condition: Good Instructions: ED Flank Pain Uncertain Cause Prescriptions: oxyCODONE/ACET 5/325 [Percocet 5 mg/325 mg] 1 - 2 each PO Q6H PRN #14 tablet PRN Reason: Pain Discharge Date/Time: 06/17/17 06:35
[2017-06-17] MEDS ORDERED: HYDROmorphone 1 MG/ML CARPUJECT IVP STA ×3 (01:25→04:34)
[2017-06-17] MEDS ORDERED: KETOROLAC 60 MG/2 ML VIAL IVP STA (01:25)
[2017-06-17] MEDS ORDERED: LORazepam 2 MG/ML VIAL IVP STA ×2 (01:25→04:34)
[2017-06-17] MEDS ORDERED: IOPAMIDOL-300 100 ML VIAL ONE (01:44)
[2017-06-17 01:52] LABS: BASOPHILS # (AUTO) 0.1 10^3/uL (0.0-0.1); BASOPHILS % (AUTO) 0.9 %; EOSINOPHILS % (AUTO) 0.2 %; HGB - HEMOGLOBIN 14.8 g/dL (12.0-16.0); LYMPHOCYTES # (AUTO) 2.4 10^3/uL (1.5-3.5); LYMPHOCYTES % (AUTO) 26.9 %; MEAN CORPUSCULAR HEMOGLOBIN 28.3 pg (27.0-31.0); MEAN CORPUSCULAR HGB CONC 34.3 g/dL (32.0-36.0); MEAN CORPUSCULAR VOLUME 82.6 fL (81.0-99.0); MEAN PLATELET VOLUME 7.2 fL (7.9-10.8); MONOCYTES # (AUTO) 0.2 10^3/uL (0.0-1.0); MONOCYTES % (AUTO) 2.6 %; NEUTROPHILS # (AUTO) 6.2 10^3/uL (1.5-6.6); NEUTROPHILS % (AUTO) 69.4 %; PLT - PLATELET COUNT 217 10^3/uL (130-450); RED BLOOD COUNT 5.22 10^6/uL (4.20-5.40); WHITE BLOOD COUNT 8.9 x10^3/uL (4.8-10.8)
[2017-06-17 01:55] LABS: CREATININE 0.5 mg/dL (0.4-1.0)
[2017-06-17 02:28] LABS: BILIRUBIN,URINE NEGATIVE (NEGATIVE); GLUCOSE, URINE (UA) >=1000 mg/dL (NEGATIVE); KETONES,URINE (UA) TRACE mg/dL (NEGATIVE); LEUKOCYTE ESTERASE, URINE TRACE (NEGATIVE); NITRITE,URINE NEGATIVE (NEGATIVE); OCCULT BLOOD,URINE TRACE-INTA (NEGATIVE); PH,URINE 6.5 PH (5.0-7.5); PROTEIN,URINE 30 mg/dL (NEGATIVE); UROBILINOGEN,URINE 0.2 (NORMAL) E.U./dL (NORMAL)
[2017-06-17 02:32] LABS: CLARITY,URINE CLOUDY (CLEAR)
[2017-06-17 02:40] LABS: BACTERIA,URINE Many /HPF (None Seen); RBC,URINE 0-5 /HPF (0-5); SQUAMOUS EPITHELIAL CELL,UR NONE SEEN (<= Few)
[2017-06-17] MEDS ORDERED: IOPAMIDOL-300 100 ML VIAL IVP ONE (02:50)
[2017-06-17] MEDS ORDERED: ONDANSETRON 4 MG/2 ML VIAL IVP STA (02:52)
--- NOTE | 2017-06-17 03:11 | CT Preliminary Report ---
Exam: CT CHEST ANGIO (PE) IMPRESSION: 1. No pulmonary emboli seen. 2. Pulmonary nodule in the superior segment of the left lower lobe measuring 9 x 9 mm, compared with 8 x 8 mm on the prior CT. Recommend PET/CT for further evaluation. 3. Fatty liver and splenomegaly. [facility] SITE ID: [id number]
--- NOTE | 2017-06-17 03:11 | CT Report ---
EXAM: CT ANGIOGRAM CHEST EXAM DATE: 06/17/2017 02:50 AM. CLINICAL HISTORY: Left chest pain. COMPARISON: 03/12/2017. TECHNIQUE: Routine helical imaging was performed through the chest in the pulmonary arterial phase. I V Contrast: Nonionic. Reconstructions: Coronal 3-D MIP reconstructions.Sagittal and coronal. In accordance with CT protocol optimization, one or more of the following dose reduction techniques w ere utilized for this exam: automated exposure control, adjustment of mA and/or KV based on patient s ize, or use of iterative reconstructive technique. FINDINGS: Pulmonary Arteries: Diagnostic quality: Adequate through the segmental arteries. No evidence for acute or chronic pulmona ry emboli. No evidence of right heart strain. Lungs/Pleura: Pulmonary nodule in the superior segment of the left lower lobe measuring 9 x 9 mm, ser ies 5 image 45. This measures 8 x 8 mm on the prior CT. Minimal bibasilar atelectasis. No pleural eff usion. No pneumothorax. Mediastinum: Heart size is normal. No lymphadenopathy seen. Thoracic Aorta: Unremarkable. Upper Abdomen: Fatty liver. Splenomegaly measuring 14.3 cm. Other: None. IMPRESSION: 1. No pulmonary emboli seen. 2. Pulmonary nodule in the superior segment of the left lower lobe measuring 9 x 9 mm, compared with 8 x 8 mm on the prior CT. Recommend PET/CT for further evaluation. 3. Fatty liver and splenomegaly. [facility] Referring Provider Line: [phone] SITE ID: [id number]
[2017-06-17] MEDS ORDERED: SODIUM CHLORIDE 0.9% 1,000 ML IV STA (04:34)
[2017-06-17 06:35] VITALS: BP 152/99
== END 2017-06-17 06:35 | disposition home or self-care (01) ==
LOC: EDUNIT# → ED 00:11
DX: R10.30 Lower abdominal pain, unspecified (principal); N39.0 Urinary tract infection, site not specified; R00.0 Tachycardia, unspecified; Z86.711 Personal history of pulmonary embolism
CPT/HCPCS: 36415; 71275; 80048; 81001; 85025; 87077; 87086; 87181; 93005; 96374; 96375; 96376; 99284; J1170; J2060; Q9967; 81003

== ENCOUNTER 2017-07-19 08:43 | Outpatient (CLI) | payer OTHER ==
[2017-07-19 08:50] LABS: BILIRUBIN,URINE NEGATIVE (NEGATIVE); GLUCOSE, URINE (UA) NEGATIVE (NEGATIVE); KETONES,URINE (UA) NEGATIVE (NEGATIVE); LEUKOCYTE ESTERASE, URINE TRACE (NEGATIVE); NITRITE,URINE POSITIVE (NEGATIVE); OCCULT BLOOD,URINE LARGE (NEGATIVE); PH,URINE 5.5 PH (5.0-7.5); PROTEIN,URINE TRACE mg/dL (NEGATIVE); UROBILINOGEN,URINE 0.2 (NORMAL) E.U./dL (NORMAL)
[2017-07-19 08:58] LABS: CLARITY,URINE CLEAR (CLEAR)
[2017-07-19] MEDS ORDERED: GADOBUTROL 15 MMOL/15 ML VIAL ONE (09:02)
[2017-07-19 09:12] LABS: BACTERIA,URINE Many /HPF (None Seen); RBC,URINE TNTC /HPF (0-5); SQUAMOUS EPITHELIAL CELL,UR FEW Squamous (<= Few)
--- NOTE | 2017-07-19 11:00 | MRI Report ---
EXAM: MRI BRAIN WITHOUT AND WITH CONTRAST EXAM DATE: 07/19/2017 09:52 AM. CLINICAL HISTORY: Chronic worsening headache. COMPARISON: Correlation is made with CT of the brain without contrast 11/10/2016 and comparison is ma de with MRI of the brain from 08/13/2007. TECHNIQUE: Multiplanar, multisequence T1-weighted and fluid-sensitive MR sequences of the brain were performed. Sequences optimized for routine evaluation. Other: None. IV Contrast: Without and with 12 mL Gadavist. FINDINGS: Brain Volume: Normal for age. Parenchyma: No acute hemorrhage, mass, or infarct. No white matter lesions identified. No abnormal en hancement. Stable incidental findings of a small right choroidal fissure cyst. Ventricles/Cisterns: No hydrocephalus. No abnormal extra-axial fluid collection or hemorrhage. Orbits: Symmetric and unremarkable. [place]: The pituitary gland, cavernous sinuses, suprasellar cistern and optic chiasm are unrem arkable. IAC: Symmetric and unremarkable. Vasculature: Normal signal flow void is seen in the major arterial structures at the skull base. The dural sinuses are patent and enhance normally. Sinuses: No acute sinus disease. Bones: No focal pathologic appearing marrow signal changes. Other: None. IMPRESSION: 1. Normal brain MRI. No significant interval change. [facility] Referring Provider Line: [phone] SITE ID: [id number]
== END 2017-07-19 08:44 | disposition home or self-care (01) ==
LOC: DI 08:43
PROVIDERS: ATTEND Internal Medicine
DX: R51 Headache (principal); R31.0 Gross hematuria
CPT/HCPCS: 70553; 81001; 87086; 87181; A9585

== ENCOUNTER 2017-07-23 22:08 | Emergency (ER) | payer OTHER ==
[2017-07-23 23:27] LABS: BASOPHILS % (AUTO) 0.6 %; EOSINOPHILS # (AUTO) 0.1 10^3/uL (0.0-0.7); EOSINOPHILS % (AUTO) 1.2 %; HGB - HEMOGLOBIN 14.4 g/dL (12.0-16.0); LYMPHOCYTES # (AUTO) 3.1 10^3/uL (1.5-3.5); LYMPHOCYTES % (AUTO) 37.9 %; MEAN CORPUSCULAR VOLUME 82.4 fL (81.0-99.0); MEAN PLATELET VOLUME 7.4 fL (7.9-10.8); MONOCYTES # (AUTO) 0.4 10^3/uL (0.0-1.0); MONOCYTES % (AUTO) 4.9 %; NEUTROPHILS # (AUTO) 4.6 10^3/uL (1.5-6.6); NEUTROPHILS % (AUTO) 55.4 %; PLT - PLATELET COUNT 207 10^3/uL (130-450); RED BLOOD COUNT 5.15 10^6/uL (4.20-5.40); RED CELL DISTRIBUTION WIDTH 13.2 % (12.0-15.0); WHITE BLOOD COUNT 8.2 x10^3/uL (4.8-10.8)
[2017-07-23 23:39] LABS: ALBUMIN 5.1 g/dL (3.2-5.5); ALBUMIN/GLOBULIN RATIO 1.6 (1.0-2.2); BILIRUBIN,TOTAL 0.4 mg/dL (0.2-1.0); CALCIUM 9.7 mg/dL (8.5-10.3); CREATININE 0.6 mg/dL (0.4-1.0); TOTAL PROTEIN 8.2 g/dL (6.7-8.2)
[2017-07-23] MEDS ORDERED: fentaNYL 100 MCG/2 ML VIAL IVP STA (23:48)
[2017-07-23] MEDS ORDERED: SODIUM CHLORIDE 0.9% 1,000 ML IV STA (23:48)
[2017-07-24] MEDS ORDERED: KETOROLAC 30 MG/ML VIAL IVP STA (00:14)
[2017-07-24] MEDS ORDERED: IOPAMIDOL-300 100 ML VIAL ONE (00:50)
[2017-07-24] MEDS ORDERED: IOPAMIDOL-300 100 ML VIAL IVP ONE (01:04)
[2017-07-24] MEDS ORDERED: fentaNYL 100 MCG/2 ML VIAL IVP STA (01:13)
--- NOTE | 2017-07-24 01:27 | CT Preliminary Report ---
Exam: CT ABDOMEN/PELVIS W/ IMPRESSION: 1. No acute inflammatory or obstructive process seen in the abdomen or pelvis. 2. Fatty liver. 3. Post hysterectomy. [facility] SITE ID: [id number]
--- NOTE | 2017-07-24 01:36 | CT Report ---
EXAM: CT ABDOMEN AND PELVIS EXAM DATE: 07/24/2017 01:13 AM. CLINICAL HISTORY: Abdominal pain. COMPARISONS: 01/13/2017. TECHNIQUE: Routine helical CT imaging was performed through the abdomen and pelvis. IV contrast: Yes. Enteric contrast: No. Reconstructions: Coronal and sagittal. In accordance with CT protocol optimization, one or more of the following dose reduction techniques w ere utilized for this exam: automated exposure control, adjustment of mA and/or KV based on patient s ize, or use of iterative reconstructive technique. FINDINGS: Lung Bases: Unremarkable. Liver: Fatty. No suspicious masses. Gallbladder/Bile Ducts: Unremarkable. Spleen: Unremarkable. Pancreas: Unremarkable. Adrenal Glands: Unremarkable. Kidneys: Mild right renal scarring. No suspicious masses or hydronephrosis. Peritoneal Cavity/Bowel: No bowel obstruction or inflammatory process seen. No free air or significan t free fluid. No masses or adenopathy. The appendix is normal. No excessive stool burden. Pelvic Organs: Post-hysterectomy with no adnexal masses seen. The bladder appears within normal limit s. Vasculature: No aneurysms or other significant abnormality. Bones: No significant abnormality. Other: Stimulator device again noted in the pelvis. IMPRESSION: 1. No acute inflammatory or obstructive process seen in the abdomen or pelvis. 2. Fatty liver. 3. Post-hysterectomy. [facility] Referring Provider Line: [phone] SITE ID: [id number]
[2017-07-24] MEDS ORDERED: CIPROFLOXACIN 250 MG TABLET PO STA (02:42)
[2017-07-24] MEDS ORDERED: FLUCONAZOLE 100 MG TABLET PO STA (02:42)
[2017-07-24 02:51] VITALS: BP 140/106
--- NOTE | 2017-07-24 08:45 | ED Physician Documentation ---
PD HPI ABD PAIN - Stated complaint Stated Complaint: FEMALE - Chief complaint Chief Complaint: Abd Pain - History obtained from History obtained from: Patient - History of Present Illness Timing - onset: Enter time (12:00 (noon)), Today Timing - details: Abrupt onset Pain level max: 8 Quality: Pain Location: Other (bilateral lower quadrants / anterior pelvis) Radiation: Left flank, Right flank Improved by: Other (no ameliorating factors) Worsened by: Other (no exacerbating factors) Associated symptoms: No: Fever, Nausea, Vomiting, Diarrhea, Constipation Similar symptoms before: Has not had sx before (has had pelvic pain in the past but patient says this feels different in location and quality) Recently seen: Emergency Dept (last month for unrelated c/o) - Additional information Additional information: c/o bilateral pelvic pain since noon today. she had outpatient UA 07/19 which has since cultured (+) for klebsiella pneumoniae; she is not currently on antibiotics. She had same culture result from UA performed in ED last month; at that time, I was the ED physician and I recommended, based on initial UA results , antibiotic but she preferred to wait until she spoke with her urologist. Patient was subsequently put on an antibiotic by her urologist and completed the course, cannot recall which antibiotic was prescribed (although she thinks it was macrodantin). Review of Systems Constitutional: denies: Fever, Chills, Sweats Cardiac: reports: Reviewed and negative Respiratory: reports: Reviewed and negative GI: reports: Abdominal Pain. denies: Nausea, Vomiting, Constipation, Diarrhea : reports: Frequency, Hysterectomy. 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 : Chronic bladder infection, Kidney stones, Other HEENT: None Psych: Depression, Anxiety, Bipolar disorder, Panic attacks, Post traumatic stress disorder Musculoskeletal: Fibromyalgia, Chronic back pain Derm: None - Past Surgical History Past Surgical History: Yes Ortho: Other /MEMBERSHIP ASSISTANT: section, Hysterectomy, Oophrectomy (bilateral), Other HEENT: Tonsil/Adenoidectomy - Present Medications Home Medications: Ambulatory Orders Medication Instructions Recorded Confirmed lamoTRIgine [Lamictal] 150 mg PO BID 11/04/12 06/17/17 Alprazolam [Xanax] 1 - 2 mg PO DAILY 10/29/14 06/17/17 Pregabalin [Lyrica] 225 mg PO BID 04/04/15 06/17/17 Estrogens, Conjugated [Premarin] 0.9 mg PO DAILY 11/10/16 02/10/17 Hyoscyamine Sulfate [Levsin-Sl] 0.125 mg SL Q4H PRN #20 tab.subl 01/13/17 Pantoprazole Sodium [Protonix] 20 mg PO DAILY 01/13/17 02/10/17 oxyCODONE/ACET 5/325 [Percocet 5 1 each PO Q6H PRN #5 tablet 02/10/17 mg/325 mg] Levofloxacin [Levaquin] 750 mg PO DAILY #7 tablet 03/14/17 Fluconazole [Diflucan] 150 mg PO ONCE #1 tablet 04/11/17 Levofloxacin [Levaquin] 750 mg PO DAILY #7 tablet 04/11/17 Dexamethasone [Decadron] 4 mg PO DAILY #5 tablet 05/29/17 Oxycodone HCl/Acetaminophen 1 each PO Q6H PRN #15 tablet 05/29/17 [Percocet 5-325 mg Tablet] Phenazopyridine [Pyridium] 100 mg PO TID PRN #15 tablet 05/29/17 Promethazine [Phenergan] 25 - 50 mg PO Q6H PRN #30 tab 05/29/17 oxyCODONE/ACET 5/325 [Percocet 5 1 - 2 each PO Q6H PRN #14 tablet 06/17/17 mg/325 mg] Ciprofloxacin HCl [Cipro] 500 mg PO BID #13 tablet 07/24/17 - Allergies Allergies/Adverse Reactions: Allergies Allergy/AdvReac Type Severity Reaction Status Date / Time sulfamethoxazole Allergy Severe Hives Verified 07/23/17 22:17 [From Bactrim] trimethoprim [From Bactrim] Allergy Severe Hives Verified 07/23/17 22:17 azithromycin [From Zithromax] Allergy Anaphylaxis Verified 07/23/17 22:17 - Social History Does the pt smoke?: No Smoking Status: Never smoker Does the pt drink ETOH?: Yes Does the pt have substance abuse?: No - Immunizations Immunizations are current?: Yes - POLST Patient has POLST: No POLST Status: Full Code PD ED PE NORMAL - Vitals Vital signs reviewed: Yes - General General: Alert and oriented X 3, No acute distress, Well developed/nourished - Cardiac Cardiac: RRR, No murmur - Respiratory Respiratory: No respiratory distress, Clear bilaterally - Abdomen Abdomen: Soft, Non distended, Other (TTP across lower abdomen, more pronounced RLQ. no rebound or guarding) - Back Back: No CVA TTP - Derm Derm: Normal color, Warm and dry Results - Vitals Vitals: Vital Signs - 24 hr 07/23/17 07/23/17 07/24/17 22:12 23:08 00:13 Temperature 37.0 C Heart Rate 143 H 131 H Respiratory 18 16 17 Rate Blood Pressure 151/110 H 142/102 H O2 Saturation 97 95 07/24/17 07/24/17 07/24/17 00:20 00:51 01:22 Temperature Heart Rate 122 H Respiratory 16 17 17 Rate Blood Pressure O2 Saturation 97 07/24/17 07/24/17 07/24/17 02:18 02:50 02:55 Temperature Heart Rate 96 Respiratory 17 18 17 Rate Blood Pressure 140/106 H O2 Saturation 100 Oxygen O2 Source Room air - Labs Labs: Laboratory Tests 07/23/17 07/23/17 23:15 23:15 WBC 8.2 RBC 5.15 Hgb 14.4 Hct 42.4 MCV 82.4 MCH 28.0 MCHC 34.0 RDW 13.2 Plt Count 207 MPV 7.4 L Neut # 4.6 Lymph # 3.1 [place] # 0.4 Eos # 0.1 Baso # 0.0 Absolute Nucleated RBC 0.00 Nucleated RBC % 0.0 Sodium 135 Potassium 4.0 Chloride 100 L Carbon Dioxide 22 Anion Gap 13.0 BUN 12 Creatinine 0.6 Estimated GFR (MDRD) 114 Glucose 118 H Calcium 9.7 Total Bilirubin 0.4 AST 85 H ALT 102 H Alkaline Phosphatase 58 Total Protein 8.2 Albumin 5.1 Globulin 3.1 Albumin/Globulin Ratio 1.6 Lipase 32 - Rads (name of study) CT A/P Radiology: Prelim report reviewed, See rad report PD MEDICAL DECISION MAKING - ED course Complexity details: reviewed results, re-evaluated patient, considered differential, d/w patient ED course: given fentanyl 50mcg IV with repeat dose x 1 (total of 100mcg) for pelvic pain. She reported adequate relief after second dose and specifically tells me she does not want any rx for pain medication. Toradol also given in ED. rx cipro for her recent urine culture result Departure - Departure Disposition: 01 Home, Self Care Clinical Impression: Pelvic pain Urinary tract infection Qualifiers: Urinary tract infection type: acute cystitis Hematuria presence: with hematuria Qualified Code(s): N30.01 - Acute cystitis with hematuria Condition: Good Instructions: ED Pelvic Pain UKO, ED UTI Cystitis Female Follow-Up: ABI ANNE MD [Primary Care Provider] - Prescriptions: Ciprofloxacin HCl [Cipro] 500 mg PO BID #13 tablet Discharge Date/Time: 07/24/17 02:56
== END 2017-07-24 02:56 | disposition home or self-care (01) ==
LOC: ED 22:08
DX: R10.2 Pelvic and perineal pain (principal); N30.01 Acute cystitis with hematuria; Z86.711 Personal history of pulmonary embolism
CPT/HCPCS: 36415; 74177; 80053; 83690; 85025; 96361; 96374; 96375; 96376; 99283; 99284; A9270; Q9967

== ENCOUNTER 2017-07-30 07:53 | Emergency (ER) | payer OTHER ==
[2017-07-30] MEDS ORDERED: SODIUM CHLORIDE 0.9% 1,000 ML IV ONE (08:28)
[2017-07-30 08:34] LABS: BASOPHILS % (AUTO) 0.4 %; EOSINOPHILS # (AUTO) 0.2 10^3/uL (0.0-0.7); EOSINOPHILS % (AUTO) 3.1 %; HGB - HEMOGLOBIN 13.7 g/dL (12.0-16.0); LYMPHOCYTES # (AUTO) 2.7 10^3/uL (1.5-3.5); LYMPHOCYTES % (AUTO) 51.5 %; MEAN CORPUSCULAR HEMOGLOBIN 28.9 pg (27.0-31.0); MEAN CORPUSCULAR HGB CONC 35.2 g/dL (32.0-36.0); MEAN CORPUSCULAR VOLUME 82.2 fL (81.0-99.0); MEAN PLATELET VOLUME 7.5 fL (7.9-10.8); MONOCYTES # (AUTO) 0.3 10^3/uL (0.0-1.0); MONOCYTES % (AUTO) 5.4 %; NEUTROPHILS # (AUTO) 2.1 10^3/uL (1.5-6.6); NEUTROPHILS % (AUTO) 39.6 %; PLT - PLATELET COUNT 178 10^3/uL (130-450); RED BLOOD COUNT 4.73 10^6/uL (4.20-5.40); RED CELL DISTRIBUTION WIDTH 13.3 % (12.0-15.0); WHITE BLOOD COUNT 5.3 x10^3/uL (4.8-10.8)
--- NOTE | 2017-07-30 08:34 | ED Physician Documentation ---
PD HPI ALTERED MENTAL STATUS - Stated complaint Stated Complaint: CONFUSED/TROUBLE WALKING - Chief complaint Chief Complaint: Neuro - History obtained from History obtained from: Patient, Family - History of Present Illness Timing - onset: How many days ago (2) Timing - duration: Days (2) Timing - details: Abrupt onset, Still present, Waxing and waning Quality / character: Less responsive, Confused, Other (difficulty speaking slow to respond.) Associated symptoms: Headache. No: Fever, Stiff neck, Dyspnea, Cough, NVD, Urinary sx, General weakness, Focal weakness, Seizure activity, Syncope Contributing factors: New medication (cipro one week ago finished today). No: Anticoagulated, Diabetic Basline status: Alert and oriented X 3, Ambulatory, Independent Similar symptoms before: Has not had sx before Recently seen: Not recently seen - Additional information Additional information: 36-year-old female with a history of chronic intermittent urinary tract infections with interstitial cystitis and a bladder stimulator in place has been placed on a course of Cipro about 1 week ago and 2 days ago she developed some difficulty with speech a low-grade headache and trouble concentrating. She is also had trouble ambulating and this seemed to improve through the day on Sunday. She again awoke on Sunday with symptoms and again this morning. She has not changed any of her medications she took her last dose of Cipro this morning. She feels like she has been drugged. Review of Systems Constitutional: reports: Fatigue, Sweats. denies: Fever Ears: denies: Ear pain Nose: denies: Rhinorrhea / runny nose, Congestion Throat: denies: Sore throat Cardiac: denies: Chest pain / pressure, Palpitations Respiratory: denies: Dyspnea, Cough GI: reports: Nausea : denies: Dysuria, Frequency Skin: denies: Rash Musculoskeletal: reports: Neck pain Neurologic: reports: Generalized weakness, Headache. 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 : Chronic bladder infection, Kidney stones, Other HEENT: None Psych: Depression, Anxiety, Bipolar disorder, Panic attacks, Post traumatic stress disorder Musculoskeletal: Fibromyalgia, Chronic back pain Derm: None - Past Surgical History Past Surgical History: Yes Ortho: Other /HAIRSPRING SETTER: section, Hysterectomy, Oophrectomy (bilateral), Other HEENT: Tonsil/Adenoidectomy - Present Medications Home Medications: Ambulatory Orders Medication Instructions Recorded Confirmed lamoTRIgine [Lamictal] 150 mg PO BID 11/04/12 06/17/17 Alprazolam [Xanax] 1 - 2 mg PO DAILY 10/29/14 06/17/17 Pregabalin [Lyrica] 225 mg PO BID 04/04/15 06/17/17 Estrogens, Conjugated [Premarin] 0.9 mg PO DAILY 11/10/16 02/10/17 Hyoscyamine Sulfate [Levsin-Sl] 0.125 mg SL Q4H PRN #20 tab.subl 01/13/17 Pantoprazole Sodium [Protonix] 20 mg PO DAILY 01/13/17 02/10/17 oxyCODONE/ACET 5/325 [Percocet 5 1 each PO Q6H PRN #5 tablet 02/10/17 mg/325 mg] Levofloxacin [Levaquin] 750 mg PO DAILY #7 tablet 03/14/17 Fluconazole [Diflucan] 150 mg PO ONCE #1 tablet 04/11/17 Levofloxacin [Levaquin] 750 mg PO DAILY #7 tablet 04/11/17 Dexamethasone [Decadron] 4 mg PO DAILY #5 tablet 05/29/17 Oxycodone HCl/Acetaminophen 1 each PO Q6H PRN #15 tablet 05/29/17 [Percocet 5-325 mg Tablet] Phenazopyridine [Pyridium] 100 mg PO TID PRN #15 tablet 05/29/17 Promethazine [Phenergan] 25 - 50 mg PO Q6H PRN #30 tab 05/29/17 oxyCODONE/ACET 5/325 [Percocet 5 1 - 2 each PO Q6H PRN #14 tablet 06/17/17 mg/325 mg] Ciprofloxacin HCl [Cipro] 500 mg PO BID #13 tablet 07/24/17 - Allergies Allergies/Adverse Reactions: Allergies Allergy/AdvReac Type Severity Reaction Status Date / Time sulfamethoxazole Allergy Severe Hives Verified 07/30/17 08:04 [From Bactrim] trimethoprim [From Bactrim] Allergy Severe Hives Verified 07/30/17 08:04 azithromycin [From Zithromax] Allergy Anaphylaxis Verified 07/30/17 08:04 - Social History Does the pt smoke?: No Smoking Status: Never smoker Does the pt drink ETOH?: Yes Does the pt have substance abuse?: No - Immunizations Immunizations are current?: Yes - POLST Patient has POLST: No POLST Status: Full Code PD ED PE NORMAL - Vitals Vital signs reviewed: Yes (hypertensive ) - General General: Well developed/nourished, Other (The patient appears toxic on arrival to the ED She has dilated pupils is slow to respond, has delay in execution of motor commands and slurred speech. ) - HEENT HEENT: Atraumatic, PERRL, EOMI, Other (dry mucous membranes) - Neck Neck: Supple, no meningeal sign, No bony TTP - Cardiac Cardiac: RRR, No murmur - Respiratory Respiratory: No respiratory distress, Clear bilaterally - Abdomen Abdomen: Soft, Non tender - Back Back: No CVA TTP, No spinal TTP - Derm Derm: Normal color, Warm and dry, No rash - Neuro Neuro: No motor deficit, No sensory deficit, Other (speech is slurred and slow ) Eye Opening: Spontaneous Motor: Obeys Commands Verbal: Confused GCS Score: 14 - Psych Psych: Normal mood, Normal affect Results - Vitals Vitals: Vital Signs - 24 hr 07/30/17 07/30/17 07/30/17 07:59 10:11 12:24 Temperature 36.5 C 36.7 C Heart Rate 99 120 H 122 H Respiratory 14 31 H 18 Rate Blood Pressure 147/109 H 140/98 H 143/96 H O2 Saturation 95 94 97 07/30/17 13:42 Temperature 37.1 C Heart Rate 115 H Respiratory 18 Rate Blood Pressure 163/101 H O2 Saturation 95 Oxygen O2 Source Room air - Labs Labs: Laboratory Tests 07/30/17 07/30/17 07/30/17 08:07 08:07 08:07 WBC 5.3 RBC 4.73 Hgb 13.7 Hct 38.9 MCV 82.2 MCH 28.9 MCHC 35.2 RDW 13.3 Plt Count 178 MPV 7.5 L Neut # 2.1 Lymph # 2.7 [place] # 0.3 Eos # 0.2 Baso # 0.0 Absolute Nucleated RBC 0.00 Nucleated RBC % 0.0 Sodium 139 Potassium 3.7 Chloride 106 Carbon Dioxide 25 Anion Gap 8.0 BUN 12 Creatinine 0.5 Estimated GFR (MDRD) 140 Glucose 141 H Calcium 9.1 Total Bilirubin 0.6 AST 49 H ALT 76 H Alkaline Phosphatase 57 Troponin I < 0.04 Total Protein 7.4 Albumin 4.4 Globulin 3.0 Albumin/Globulin Ratio 1.5 Lipase 50 TSH Urine Color Urine Clarity Urine pH Ur Specific [place] Urine Protein Urine Glucose (UA) Urine Ketones Urine Occult Blood Urine Nitrite Urine Bilirubin Urine Urobilinogen Ur Leukocyte Esterase Ur Microscopic Review Urine Culture Comments Urine Opiates Screen Ur Oxycodone Screen Urine Methadone Screen Ur Propoxyphene Screen Ur Barbiturates Screen Ur Tricyclics Screen Ur Phencyclidine Scrn Ur Amphetamine Screen U Methamphetamines Scrn U Benzodiazepines Scrn Urine Cocaine Screen U Cannabinoids Screen 07/30/17 07/30/17 08:07 10:08 WBC RBC Hgb Hct MCV MCH MCHC RDW Plt Count MPV Neut # Lymph # [place] # Eos # Baso # Absolute Nucleated RBC Nucleated RBC % Sodium Potassium Chloride Carbon Dioxide Anion Gap BUN Creatinine Estimated GFR (MDRD) Glucose Calcium Total Bilirubin AST ALT Alkaline Phosphatase Troponin I Total Protein Albumin Globulin Albumin/Globulin Ratio Lipase TSH 3.09 Urine Color YELLOW Urine Clarity CLEAR Urine pH 6.5 Ur Specific [place] 1.010 Urine Protein NEGATIVE Urine Glucose (UA) NEGATIVE Urine Ketones NEGATIVE Urine Occult Blood NEGATIVE Urine Nitrite NEGATIVE Urine Bilirubin NEGATIVE Urine Urobilinogen 0.2 (NORMAL) Ur Leukocyte Esterase NEGATIVE Ur Microscopic Review NOT INDICATED Urine Culture Comments NOT INDICATED Urine Opiates Screen NEGATIVE Ur Oxycodone Screen NEGATIVE Urine Methadone Screen NEGATIVE Ur Propoxyphene Screen NEGATIVE Ur Barbiturates Screen NEGATIVE Ur Tricyclics Screen NEGATIVE Ur Phencyclidine Scrn NEGATIVE Ur Amphetamine Screen POSITIVE H U Methamphetamines Scrn NEGATIVE U Benzodiazepines Scrn POSITIVE H Urine Cocaine Screen NEGATIVE U Cannabinoids Screen NEGATIVE - Rads (name of study) CT head without Radiology: Prelim report reviewed (Impression: Normal head CT. No significant change from priors.), EMP read indepedently, See rad report PD MEDICAL DECISION MAKING - ED course Complexity details: reviewed results, re-evaluated patient, considered differential, d/w patient, d/w family ED course: 6-year-old female arrives to the emergency department this morning with altered level of consciousness. She slowly improved her level of consciousness through the day and her pupils returned to normal size. Her case is most consistent with a toxidrome. I am not able to clearly identify a specific medication she is taking and she recalls that she has been on all of this combination of medications previously a number of times. She is mostly recently been put on some Cipro for bladder infection and she has done 10 day courses previously without problem. Here in the emergency department she improves her level of consciousness CT scan of the head is unremarkable she does have amphetamine in her urine tox screen and states that she does have a prescription for Adderall to 30 mg this morning. She is hydrated here in the emergency department and discharged back to home with instructions to discontinue the use of the Cipro and review all of her medications at home. Departure - Departure Disposition: 01 Home, Self Care Clinical Impression: Altered mental status Qualifiers: Altered mental status type: transient alteration of awareness Qualified Code(s) : R40.4 - Transient alteration of awareness Condition: Stable Instructions: ED Altered Loc, ED Confusion Follow-Up: ABI ANNE MD [Primary Care Provider] - Forms: Activity restrictions Discharge Date/Time: 07/30/17 13:59
[2017-07-30 08:41] LABS: ALBUMIN 4.4 g/dL (3.2-5.5); ALBUMIN/GLOBULIN RATIO 1.5 (1.0-2.2); BILIRUBIN,TOTAL 0.6 mg/dL (0.2-1.0); CALCIUM 9.1 mg/dL (8.5-10.3); CREATININE 0.5 mg/dL (0.4-1.0); TOTAL PROTEIN 7.4 g/dL (6.7-8.2)
--- NOTE | 2017-07-30 08:51 | CT Report ---
EXAM: CT HEAD EXAM DATE: 07/30/2017 08:37 AM. CLINICAL HISTORY: Altered mental status, confusion, disoriented, difficulty ambulating. COMPARISON: MRI 07/19/2017. CT 11/10/2016. TECHNIQUE: Multiaxial CT images were obtained from the foramen magnum to the vertex. Reformats: Coron al. IV contrast: None. In accordance with CT protocol optimization, one or more of the following dose reduction techniques w ere utilized for this exam: automated exposure control, adjustment of mA and/or KV based on patient s ize, or use of iterative reconstructive technique. FINDINGS: Parenchyma: No intraparenchymal hemorrhage. No evidence of mass, midline shift, or CT findings of inf arction. Jackson-white differentiation is distinct. Extraaxial Spaces: Normal for age. No subdural or epidural collections identified. Ventricles: Normal in size and position. Sinuses and Orbits: Imaged paranasal sinuses, orbits, and mastoids show no significant abnormality. Bones: No evidence of fracture or calvarial defect. Other: None. IMPRESSION: Normal head CT. No significant change from priors. [facility] Referring Provider Line: [phone] SITE ID: [id number]
[2017-07-30] MEDS ORDERED: ACETAMINOPHEN 325 MG TABLET PO STA (09:48)
[2017-07-30] MEDS ORDERED: ONDANSETRON 4 MG/2 ML VIAL IVP STA (09:48)
[2017-07-30 10:09] LABS: MUDS CUTOFF CONCENTRATIONS CUTOFF CONC BELOW:
[2017-07-30 10:11] LABS: BILIRUBIN,URINE NEGATIVE (NEGATIVE); GLUCOSE, URINE (UA) NEGATIVE (NEGATIVE); KETONES,URINE (UA) NEGATIVE (NEGATIVE); LEUKOCYTE ESTERASE, URINE NEGATIVE (NEGATIVE); NITRITE,URINE NEGATIVE (NEGATIVE); OCCULT BLOOD,URINE NEGATIVE (NEGATIVE); PH,URINE 6.5 PH (5.0-7.5); PROTEIN,URINE NEGATIVE (NEGATIVE); UROBILINOGEN,URINE 0.2 (NORMAL) E.U./dL (NORMAL)
[2017-07-30 10:27] LABS: CLARITY,URINE CLEAR (CLEAR)
[2017-07-30 10:28] LABS: AMPHETAMINE SCREEN,URINE POSITIVE (NEGATIVE); BENZODIAZEPINES SCREEN, URINE POSITIVE (NEGATIVE); COCAINE SCREEN URINE NEGATIVE (NEGATIVE); METHADONE SCREEN, URINE NEGATIVE (NEGATIVE); METHAMPHETAMINES SCREEN, URINE NEGATIVE (NEGATIVE); OPIATE SCREEN, URINE NEGATIVE (NEGATIVE); OXYCODONE SCREEN, URINE NEGATIVE (NEGATIVE); PROPOXYPHENE SCREEN, URINE NEGATIVE (NEGATIVE); TRICYCLIC ANTIDEPRESSANT,URINE NEGATIVE (NEGATIVE)
[2017-07-30 13:43] VITALS: BP 163/101
== END 2017-07-30 13:59 | disposition home or self-care (01) ==
LOC: ED 07:53
DX: R40.4 Transient alteration of awareness (principal); Z87.440 Personal history of urinary (tract) infections; Z96.0 Presence of urogenital implants; Z86.711 Personal history of pulmonary embolism; K21.9 Gastro-esophageal reflux disease without esophagitis; M79.7 Fibromyalgia
CPT/HCPCS: 36415; 70450; 80053; 80306; 81003; 83690; 84443; 84484; 85025; 96361; 96374; 99283; 99284; A9270; 81001; 87086

== ENCOUNTER 2017-08-07 16:39 | Outpatient (CLI) | payer OTHER ==
[2017-08-07 17:01] LABS: BILIRUBIN,URINE NEGATIVE (NEGATIVE); GLUCOSE, URINE (UA) NEGATIVE (NEGATIVE); KETONES,URINE (UA) NEGATIVE (NEGATIVE); LEUKOCYTE ESTERASE, URINE NEGATIVE (NEGATIVE); NITRITE,URINE NEGATIVE (NEGATIVE); OCCULT BLOOD,URINE LARGE (NEGATIVE); PROTEIN,URINE TRACE mg/dL (NEGATIVE); UROBILINOGEN,URINE 0.2 (NORMAL) E.U./dL (NORMAL)
[2017-08-07 17:02] LABS: CLARITY,URINE HAZY (CLEAR)
[2017-08-07 17:10] LABS: BACTERIA,URINE None Seen /HPF (None Seen); RBC,URINE TNTC /HPF (0-5); SQUAMOUS EPITHELIAL CELL,UR MOD Squamous (<= Few)
== END 2017-08-07 16:40 | disposition home or self-care (01) ==
LOC: LAB 16:39
PROVIDERS: ATTEND Obstetrics & Gynecology
DX: N39.0 Urinary tract infection, site not specified (principal)
CPT/HCPCS: 81001; 81003; 87086

== ENCOUNTER 2017-09-05 12:31 | Outpatient (CLI) | payer OTHER | END 2017-09-05 12:32 | disposition critical access hospital (66) | LOC: EMS 12:31 | PROVIDERS: ATTEND Surgery | DX: R42 Dizziness and giddiness (principal) | CPT/HCPCS: A0425; A0429 ==

== ENCOUNTER 2017-09-05 12:35 | Emergency (ER) | payer OTHER ==
[2017-09-05 14:08] LABS: ALBUMIN 4.6 g/dL (3.2-5.5); ALBUMIN/GLOBULIN RATIO 1.4 (1.0-2.2); BILIRUBIN,TOTAL 0.7 mg/dL (0.2-1.0); CALCIUM 9.6 mg/dL (8.5-10.3); CREATININE 0.6 mg/dL (0.4-1.0)
[2017-09-05 14:15] LABS: BASOPHILS % (AUTO) 0.5 %; EOSINOPHILS # (AUTO) 0.1 10^3/uL (0.0-0.7); EOSINOPHILS % (AUTO) 1.1 %; HGB - HEMOGLOBIN 14.3 g/dL (12.0-16.0); LYMPHOCYTES # (AUTO) 2.3 10^3/uL (1.5-3.5); LYMPHOCYTES % (AUTO) 38.7 %; MEAN CORPUSCULAR HEMOGLOBIN 28.8 pg (27.0-31.0); MEAN CORPUSCULAR HGB CONC 34.1 g/dL (32.0-36.0); MEAN CORPUSCULAR VOLUME 84.4 fL (81.0-99.0); MEAN PLATELET VOLUME 7.8 fL (7.9-10.8); MONOCYTES # (AUTO) 0.3 10^3/uL (0.0-1.0); NEUTROPHILS # (AUTO) 3.3 10^3/uL (1.5-6.6); NEUTROPHILS % (AUTO) 54.7 %; PLT - PLATELET COUNT 202 10^3/uL (130-450); RED BLOOD COUNT 4.97 10^6/uL (4.20-5.40); RED CELL DISTRIBUTION WIDTH 12.9 % (12.0-15.0)
[2017-09-05] MEDS ORDERED: KETOROLAC 60 MG/2 ML VIAL IVP STA (14:33)
[2017-09-05] MEDS ORDERED: DEXAMETHASONE 10 MG/ML VIAL IVP STA (14:33)
[2017-09-05] MEDS ORDERED: SODIUM CHLORIDE 0.9% 1,000 ML IV ONE (14:33)
[2017-09-05] MEDS ORDERED: diphenhydrAMINE INJ 50 MG/ML VIAL IVP STA (14:34)
[2017-09-05] MEDS ORDERED: PROCHLORPERAZINE 10 MG/2 ML VIAL IVP STA (14:34)
--- NOTE | 2017-09-05 14:36 | ED Physician Documentation ---
PD HPI ALTERED MENTAL STATUS - Stated complaint Stated Complaint: DIZZY - Chief complaint Chief Complaint: Neuro - History obtained from History obtained from: Patient, Family - History of Present Illness Timing - onset: Today Timing - duration: Hours Timing - details: Gradual onset, Still present Quality / character: Less responsive, Confused, Disoriented Associated symptoms: Headache, Urinary sx, General weakness. No: Fever, Stiff neck, Dyspnea, Cough, NVD Contributing factors: Known psych illness Basline status: Alert and oriented X 3, Ambulatory, Independent Similar symptoms before: Diagnosis (suspected toxidrom in July.) Recently seen: Clinic - Additional information Additional information: 36-year-old female with a history of fibromyalgia, psychiatric illness and interstitial cystitis has developed acute altered mental status similar to what she has had previously twice. She indicates that she gets these spells about once per week that are much less dramatic and last only a short while. Today her episode is dramatic and she has developed headache. She has been seen in the emergency department previously by me and eventually this cleared without specific explanation and she was thought to have a toxidrome. At that time she had taken some additional Adderall. Review of Systems Constitutional: denies: Fever Eyes: denies: Decreased vision Ears: denies: Ear pain Nose: denies: Congestion Throat: denies: Sore throat Cardiac: denies: Chest pain / pressure, Palpitations Respiratory: denies: Dyspnea, Cough GI: reports: Nausea : reports: Dysuria Skin: denies: Rash Musculoskeletal: reports: Neck pain, Back pain, Extremity pain Neurologic: reports: Generalized weakness, Numbness, Difficulty speaking, Confused, Altered mental status, Headache. 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 OPERATOR: section, Hysterectomy, Oophrectomy, Other HEENT: Tonsil/Adenoidectomy - Present Medications Home Medications: Ambulatory Orders Medication Instructions Recorded Confirmed lamoTRIgine [Lamictal] 150 mg PO BID 11/04/12 06/17/17 Alprazolam [Xanax] 1 - 2 mg PO DAILY 10/29/14 06/17/17 Pregabalin [Lyrica] 225 mg PO BID 04/04/15 06/17/17 Nitrofurantoin [Macrobid] 100 mg PO 09/05/17 - Allergies Allergies/Adverse Reactions: Allergies Allergy/AdvReac Type Severity Reaction Status Date / Time sulfamethoxazole Allergy Severe Hives Verified 09/05/17 12:42 [From Bactrim] trimethoprim [From Bactrim] Allergy Severe Hives Verified 09/05/17 12:42 azithromycin [From Zithromax] Allergy Anaphylaxis Verified 09/05/17 12:42 - Social History Does the pt smoke?: No Smoking Status: Never smoker Does the pt drink ETOH?: Yes Does the pt have substance abuse?: No - Immunizations Immunizations are current?: Yes - POLST Patient has POLST: No POLST Status: Full Code PD ED PE NORMAL - Vitals Vital signs reviewed: Yes (tachy and hypertensive ) - General General: No acute distress, Well developed/nourished, Other (There is a vacant stare and delayed execution of motor commands with speech latency and expressive aphasia. ) - HEENT HEENT: Atraumatic, PERRL, EOMI, Ears normal, Other (dry mucous membranes. ) - Neck Neck: Supple, no meningeal sign, No bony TTP - Cardiac Cardiac: No murmur, Other (tachy to 115) - Respiratory Respiratory: No respiratory distress, Clear bilaterally - Abdomen Abdomen: Soft, Non tender - Back Back: No CVA TTP, No spinal TTP - Derm Derm: Normal color, Warm and dry, No rash - Extremities Extremities: No deformity, No edema - Neuro Neuro: Other (speech is delayed and dysarthric ) Eye Opening: Spontaneous Motor: Obeys Commands Verbal: Confused GCS Score: 14 - Psych Psych: Normal mood, Other (affect is blunted) Results - Vitals Vitals: Vital Signs - 24 hr 09/05/17 09/05/17 09/05/17 12:35 13:59 15:12 Temperature 36.9 C Heart Rate 118 H 115 H 117 H Respiratory 18 24 26 H Rate Blood Pressure 156/116 H 152/99 H 125/69 O2 Saturation 96 96 97 09/05/17 09/05/17 16:18 16:51 Temperature Heart Rate 100 92 Respiratory 17 15 Rate Blood Pressure 119/73 126/73 O2 Saturation 92 94 Oxygen O2 Source Room air - EKG (time done) 1250 Rate: Rate (enter#) (115) Rhythm: Sinus tachycardia Intervals: Prolonged QT Compare to prior EKG: Changed from prior EKG (SPT 06-17-17 the rate has decreased. ) Computer interpretation: Agree with computer - Labs Labs: Laboratory Tests 09/05/17 09/05/17 09/05/17 13:52 14:10 16:42 WBC 6.0 RBC 4.97 Hgb 14.3 Hct 41.9 MCV 84.4 MCH 28.8 MCHC 34.1 RDW 12.9 Plt Count 202 MPV 7.8 L Neut # (Auto) 3.3 Lymph # (Auto) 2.3 [place] # (Auto) 0.3 Eos # (Auto) 0.1 Baso # (Auto) 0.0 Absolute Nucleated RBC 0.00 Nucleated RBC % 0.0 Sodium 135 Potassium 4.0 Chloride 102 Carbon Dioxide 24 Anion Gap 9.0 BUN 13 Creatinine 0.6 Estimated GFR (MDRD) 114 Glucose 114 H Calcium 9.6 Total Bilirubin 0.7 AST 50 H ALT 59 Alkaline Phosphatase 57 Total Protein 8.0 Albumin 4.6 Globulin 3.4 Albumin/Globulin Ratio 1.4 Lipase 38 Urine Color Urine Clarity Urine pH Ur Specific [place] Urine Protein Urine Glucose (UA) Urine Ketones Urine Occult Blood Urine Nitrite Urine Bilirubin Urine Urobilinogen Ur Leukocyte Esterase Ur Microscopic Review Urine Culture Comments Urine HCG, Qual Urine Opiates Screen NEGATIVE Ur Oxycodone Screen NEGATIVE Urine Methadone Screen NEGATIVE Ur Propoxyphene Screen NEGATIVE Ur Barbiturates Screen NEGATIVE Ur Tricyclics Screen NEGATIVE Ur Phencyclidine Scrn NEGATIVE Ur Amphetamine Screen POSITIVE H U Methamphetamines Scrn NEGATIVE U Benzodiazepines Scrn POSITIVE H Urine Cocaine Screen NEGATIVE U Cannabinoids Screen NEGATIVE 09/05/17 16:42 WBC RBC Hgb Hct MCV MCH MCHC RDW Plt Count MPV Neut # (Auto) Lymph # (Auto) [place] # (Auto) Eos # (Auto) Baso # (Auto) Absolute Nucleated RBC Nucleated RBC % Sodium Potassium Chloride Carbon Dioxide Anion Gap BUN Creatinine Estimated GFR (MDRD) Glucose Calcium Total Bilirubin AST ALT Alkaline Phosphatase Total Protein Albumin Globulin Albumin/Globulin Ratio Lipase Urine Color YELLOW Urine Clarity CLEAR Urine pH 7.0 Ur Specific [place] 1.015 Urine Protein NEGATIVE Urine Glucose (UA) NEGATIVE Urine Ketones TRACE Urine Occult Blood NEGATIVE Urine Nitrite NEGATIVE Urine Bilirubin NEGATIVE Urine Urobilinogen 0.2 (NORMAL) Ur Leukocyte Esterase NEGATIVE Ur Microscopic Review NOT INDICATED Urine Culture Comments NOT INDICATED Urine HCG, Qual NEGATIVE Urine Opiates Screen Ur Oxycodone Screen Urine Methadone Screen Ur Propoxyphene Screen Ur Barbiturates Screen Ur Tricyclics Screen Ur Phencyclidine Scrn Ur Amphetamine Screen U Methamphetamines Scrn U Benzodiazepines Scrn Urine Cocaine Screen U Cannabinoids Screen PD MEDICAL DECISION MAKING - ED course Complexity details: reviewed results, re-evaluated patient, considered differential, d/w patient, d/w family ED course: This 36-year-old female presents again with altered level of consciousness and she does have a headache again today. I reviewed the history with the patient and she seems to have episodes to a lesser extent as many as once per week and I considered complicated migraine possibility and treated her with a migraine cocktail. She received a cocktail including Toradol 30 mg Compazine 10 mg Benadryl 25 mg and dexamethasone 10 mg intravenously as well as a liter of saline. She had rapid improvement resolution of her headache and improvement in her level of consciousness. I suspect the patient does have complicated migraine and I have recommended she follow-up with a neurologist to consider migraine prophylaxis. - Sepsis Event Vital Signs: Vital Signs - 24 hr 09/05/17 09/05/17 09/05/17 12:35 13:59 15:12 Temperature 36.9 C Heart Rate 118 H 115 H 117 H Respiratory 18 24 26 H Rate Blood Pressure 156/116 H 152/99 H 125/69 O2 Saturation 96 96 97 09/05/17 09/05/17 16:18 16:51 Temperature Heart Rate 100 92 Respiratory 17 15 Rate Blood Pressure 119/73 126/73 O2 Saturation 92 94 Oxygen O2 Source Room air Departure - Departure Disposition: 01 Home, Self Care Clinical Impression: Complicated migraine Condition: Stable Instructions: ED Headache Migraine Follow-Up: ABI ANNE MD [Primary Care Provider] - Comments: Today I suspect the spells you have been experiencing are related to a complicated migraine. This requires follow-up with a neurologist to consider migraine prophylaxis.
[2017-09-05 16:50] LABS: MUDS CUTOFF CONCENTRATIONS CUTOFF CONC BELOW:
[2017-09-05 16:52] VITALS: BP 126/73
[2017-09-05 16:52] LABS: BILIRUBIN,URINE NEGATIVE (NEGATIVE); GLUCOSE, URINE (UA) NEGATIVE (NEGATIVE); KETONES,URINE (UA) TRACE mg/dL (NEGATIVE); LEUKOCYTE ESTERASE, URINE NEGATIVE (NEGATIVE); NITRITE,URINE NEGATIVE (NEGATIVE); OCCULT BLOOD,URINE NEGATIVE (NEGATIVE); PROTEIN,URINE NEGATIVE (NEGATIVE); UROBILINOGEN,URINE 0.2 (NORMAL) E.U./dL (NORMAL)
[2017-09-05 16:54] LABS: CLARITY,URINE CLEAR (CLEAR)
[2017-09-05 16:55] LABS: HCG UR QUAL NEGATIVE
[2017-09-05 17:03] LABS: COCAINE SCREEN URINE NEGATIVE (NEGATIVE); METHAMPHETAMINES SCREEN, URINE NEGATIVE (NEGATIVE); OPIATE SCREEN, URINE NEGATIVE (NEGATIVE)
[2017-09-05 17:04] LABS: AMPHETAMINE SCREEN,URINE POSITIVE (NEGATIVE); BENZODIAZEPINES SCREEN, URINE POSITIVE (NEGATIVE); METHADONE SCREEN, URINE NEGATIVE (NEGATIVE); OXYCODONE SCREEN, URINE NEGATIVE (NEGATIVE); PROPOXYPHENE SCREEN, URINE NEGATIVE (NEGATIVE); TRICYCLIC ANTIDEPRESSANT,URINE NEGATIVE (NEGATIVE)
== END 2017-09-05 17:00 | disposition home or self-care (01) ==
LOC: EDBD → EDUNIT# → ED 12:35
DX: G43.109 Migraine with aura, not intractable, without status migrainosus (principal); R00.0 Tachycardia, unspecified; I45.81 Long QT syndrome
CPT/HCPCS: 36415; 80053; 80306; 81003; 81025; 83690; 85025; 93005; 96361; 96374; 96375; 99284; J1200; 81001; 87086

== ENCOUNTER 2017-09-20 08:22 | Outpatient (CLI) | payer OTHER ==
--- NOTE | 2017-09-20 12:40 | MRI Report ---
Procedure Date: 09/20/2017 Accession Number: [id number] / [id number] Procedure: MRI - Brain W/O CPT Code: FULL RESULT: EXAM: MRI BRAIN WITHOUT CONTRAST EXAM DATE: 09/20/2017 09:27 AM. CLINICAL HISTORY: HEADACHE. COMPARISON: MRI the brain without and with contrast 07/19/2017. TECHNIQUE: Multiplanar, multisequence T1-weighted and fluid-sensitive MR sequences of the brain were performed. Sequences optimized for routine evaluation. Other: None. IV Contrast: None. FINDINGS: The diffusion-weighted images are normal. There is no evidence of acute or subacute cerebral infarction. The corpus callosum is of normal size and configuration. The pituitary and sella are normal. The craniocervical junction is normal. The images are degraded by motion. The cerebral vascular flow voids are patent. The T2 axial FLAIR images are normal. The imaged portions of the paranasal sinuses are normally aerated. The bilateral parotid spaces exhibit normal signal intensity. The cerebral vascular flow voids are patent. The T2* sequence is normal. There is no evidence of subacute or chronic hemorrhage. Impression: 1. Normal brain MRI. There is no evidence of acute or subacute cerebral infarction, significant white matter disease, or evidence of mass. 2. The images are degraded by motion.
== END 2017-09-20 08:23 | disposition home or self-care (01) ==
LOC: DI 08:22
PROVIDERS: ATTEND Internal Medicine
DX: R51 Headache (principal)
CPT/HCPCS: 70551

== ENCOUNTER 2017-10-10 16:38 | Outpatient (CLI) | payer OTHER ==
[2017-10-10 16:53] LABS: BILIRUBIN,URINE NEGATIVE (NEGATIVE); GLUCOSE, URINE (UA) NEGATIVE (NEGATIVE); KETONES,URINE (UA) NEGATIVE (NEGATIVE); LEUKOCYTE ESTERASE, URINE NEGATIVE (NEGATIVE); NITRITE,URINE NEGATIVE (NEGATIVE); OCCULT BLOOD,URINE NEGATIVE (NEGATIVE); PROTEIN,URINE NEGATIVE (NEGATIVE); UROBILINOGEN,URINE 0.2 (NORMAL) E.U./dL (NORMAL)
[2017-10-10 16:56] LABS: CLARITY,URINE CLEAR (CLEAR)
== END 2017-10-10 16:39 | disposition home or self-care (01) ==
LOC: LAB 16:38
PROVIDERS: ATTEND Obstetrics & Gynecology
DX: R30.0 Dysuria (principal); R39.15 Urgency of urination; R39.198 Other difficulties with micturition
CPT/HCPCS: 81001; 81003; 87086

== ENCOUNTER 2017-10-16 12:07 | Emergency (ER) | payer OTHER ==
[2017-10-16] MEDS ORDERED: ONDANSETRON 4 MG/2 ML VIAL IVP STA (14:08)
[2017-10-16] MEDS ORDERED: SODIUM CHLORIDE 0.9% 1,000 ML IV ONE ×2 (14:08→15:23)
[2017-10-16] MEDS ORDERED: fentaNYL 100 MCG/2 ML VIAL IVP STA ×2 (14:10→15:23)
[2017-10-16 14:30] LABS: BASOPHILS % (AUTO) 0.4 %; EOSINOPHILS # (AUTO) 0.1 10^3/uL (0.0-0.7); EOSINOPHILS % (AUTO) 1.1 %; HGB - HEMOGLOBIN 14.6 g/dL (12.0-16.0); LYMPHOCYTES # (AUTO) 2.9 10^3/uL (1.5-3.5); LYMPHOCYTES % (AUTO) 47.3 %; MEAN CORPUSCULAR HEMOGLOBIN 28.6 pg (27.0-31.0); MEAN CORPUSCULAR HGB CONC 34.4 g/dL (32.0-36.0); MEAN CORPUSCULAR VOLUME 83.1 fL (81.0-99.0); MEAN PLATELET VOLUME 7.4 fL (7.9-10.8); MONOCYTES # (AUTO) 0.3 10^3/uL (0.0-1.0); MONOCYTES % (AUTO) 4.4 %; NEUTROPHILS # (AUTO) 2.9 10^3/uL (1.5-6.6); NEUTROPHILS % (AUTO) 46.8 %; PLT - PLATELET COUNT 212 10^3/uL (130-450); RED BLOOD COUNT 5.09 10^6/uL (4.20-5.40); RED CELL DISTRIBUTION WIDTH 13.4 % (12.0-15.0); WHITE BLOOD COUNT 6.2 x10^3/uL (4.8-10.8)
[2017-10-16] MEDS ORDERED: IOPAMIDOL-300 100 ML VIAL ONE (14:40)
[2017-10-16 15:01] LABS: ALBUMIN 5.1 g/dL (3.2-5.5); ALBUMIN/GLOBULIN RATIO 1.5 (1.0-2.2); BILIRUBIN,TOTAL 1.2 mg/dL (0.2-1.0); CALCIUM 9.8 mg/dL (8.5-10.3); CREATININE 0.6 mg/dL (0.4-1.0); TOTAL PROTEIN 8.6 g/dL (6.7-8.2)
[2017-10-16] MEDS ORDERED: PROMETHAZINE INJ 12.5 MG in SODIUM CHLORIDE 0.9% 50 ML IV STA (15:23)
[2017-10-16] MEDS ORDERED: IOPAMIDOL-300 100 ML VIAL IVP ONE (15:52)
[2017-10-16 16:03] LABS: BILIRUBIN,URINE NEGATIVE (NEGATIVE); GLUCOSE, URINE (UA) NEGATIVE (NEGATIVE); KETONES,URINE (UA) 15 mg/dL (NEGATIVE); LEUKOCYTE ESTERASE, URINE SMALL (NEGATIVE); NITRITE,URINE NEGATIVE (NEGATIVE); OCCULT BLOOD,URINE NEGATIVE (NEGATIVE); PH,URINE 7.5 PH (5.0-7.5); PROTEIN,URINE NEGATIVE (NEGATIVE); UROBILINOGEN,URINE 0.2 (NORMAL) E.U./dL (NORMAL)
[2017-10-16 16:11] LABS: CLARITY,URINE CLOUDY (CLEAR)
[2017-10-16 16:13] LABS: BACTERIA,URINE Many /HPF (None Seen); RBC,URINE 0-5 /HPF (0-5); SQUAMOUS EPITHELIAL CELL,UR MANY Squamous (<= Few)
--- NOTE | 2017-10-16 16:15 | CT Report ---
Procedure Date: 10/16/2017 Accession Number: [id number] / [id number] Procedure: CT - Abdomen/Pelvis W/ CPT Code: FULL RESULT: EXAM: CT ABDOMEN AND PELVIS EXAM DATE: 10/16/2017 03:57 PM. CLINICAL HISTORY: Right lower quadrant pain. COMPARISONS: ABDOMEN/PELVIS W/ 07/24/2017 12:59 AM. TECHNIQUE: Routine helical CT imaging was performed through the abdomen and pelvis. IV contrast: 100 ML ISOVUE 300. Enteric contrast: No. Reconstructions: Coronal and sagittal. In accordance with CT protocol optimization, one or more of the following dose reduction techniques were utilized for this exam: automated exposure control, adjustment of mA and/or KV based on patient size, or use of iterative reconstructive technique. FINDINGS: Lung Bases: Unremarkable. Liver: Normal. No masses. Gallbladder/Bile Ducts: Unremarkable. Spleen: Normal. Pancreas: Normal. Adrenal Glands: Normal. Kidneys: Normal. No masses or hydronephrosis. Peritoneal Cavity/Bowel: Normal. No free fluid, free air or adenopathy. No masses or acute inflammatory process. The appendix is well visualized and normal. Pelvic Organs: Hysterectomy. Unremarkable bladder. Vasculature: No aneurysms or other significant abnormality. Bones: No significant abnormality. Other: Stable right presacral neurostimulator leads, one attached to a left buttock pulse generator, the other ending in right buttock scarring likely from prior generator. IMPRESSION: Hysterectomy and stable right presacral stimulator leads, otherwise unremarkable abdomen and pelvis CT. [facility]
--- NOTE | 2017-10-16 16:29 | ED Physician Documentation ---
PD HPI ABD PAIN - Stated complaint Stated Complaint: LOWER ABD PX - Chief complaint Chief Complaint: Abd Pain - History obtained from History obtained from: Patient - History of Present Illness Timing - onset: Yesterday Timing - details: Still present Location: RLQ Associated symptoms: Fever, Nausea. No: Vomiting, Dysuria Similar symptoms before: No diagnosis (History of similar symptoms about one year ago.) - Additional information Additional information: The patient is a 36-year-old female who presents with lower abdominal pain that started yesterday, and persists today. It was initially located in the periumbilical region, but she states it is now more noticeable in the right lower quadrant. She reports nausea, without vomiting. She denies dysuria. She has had low-grade fever intermittently for the past 3 days. Past medical history is significant for recurrent bladder infections and interstitial cystitis. She sees a uro-crematory attendant for her chronic "bladder issues." She is currently on prophylactic Macrodantin, 50 mg daily. Review of Systems Constitutional: reports: Fever (Low-grade.) Nose: denies: Congestion Throat: denies: Sore throat Respiratory: denies: Dyspnea, Cough GI: reports: Abdominal Pain, Nausea. denies: Vomiting, Diarrhea : reports: Hysterectomy. denies: Dysuria Skin: denies: Rash Musculoskeletal: denies: Back pain Neurologic: denies: Headache PD PAST MEDICAL HISTORY - Past Medical History Cardiovascular: Pulmonary embolism, Other Respiratory: Pneumonia Neuro: Headaches, Migraines Endocrine/Autoimmune: None GI: GERD LINOLEUM LAYER: None : Chronic bladder infection, Kidney stones, Other HEENT: None Psych: Depression, Anxiety, Bipolar disorder, Panic attacks, Post traumatic stress disorder Musculoskeletal: Fibromyalgia, Chronic back pain Derm: None - Past Surgical History Past Surgical History: Yes Ortho: Other /LINOLEUM LAYER: section, Hysterectomy, Oophrectomy, Other HEENT: Tonsil/Adenoidectomy - Present Medications Home Medications: Ambulatory Orders Medication Instructions Recorded Confirmed lamoTRIgine [Lamictal] 150 mg PO BID 11/04/12 06/17/17 Alprazolam [Xanax] 1 - 2 mg PO DAILY 10/29/14 06/17/17 Pregabalin [Lyrica] 225 mg PO BID 04/04/15 06/17/17 Nitrofurantoin [Macrobid] 100 mg PO 09/05/17 cephALEXin [Cephalexin] 500 mg PO TID #15 tablet 10/16/17 oxyCODONE/ACET 5/325 [Percocet 5 1 tab PO Q4-6H PRN #14 tablet 10/16/17 mg/325 mg] - Allergies Allergies/Adverse Reactions: Allergies Allergy/AdvReac Type Severity Reaction Status Date / Time sulfamethoxazole Allergy Severe Hives Verified 09/05/17 12:42 [From Bactrim] trimethoprim [From Bactrim] Allergy Severe Hives Verified 09/05/17 12:42 azithromycin [From Zithromax] Allergy Anaphylaxis Verified 09/05/17 12:42 - Social History Does the pt smoke?: No Smoking Status: Never smoker Does the pt drink ETOH?: Yes Does the pt have substance abuse?: No - Immunizations Immunizations are current?: Yes - POLST Patient has POLST: No POLST Status: Full Code PD ED PE NORMAL - Vitals Vital signs reviewed: Yes (Initially hypertensive.) - General General: Alert and oriented X 3, Other (Morbidly obese.) - HEENT HEENT: Atraumatic, Pharynx benign - Neck Neck: Supple, no meningeal sign, No adenopathy - Cardiac Cardiac: RRR - Respiratory Respiratory: No respiratory distress, Clear bilaterally - Abdomen Abdomen: Normal bowel sounds, Soft, Other (Mild lower abdominal tenderness, right greater than left. No rebound or guarding.) - Back Back: No CVA TTP - Derm Derm: No rash - Extremities Extremities: No edema, No calf tenderness / cord - Neuro Neuro: Alert and oriented X 3, No motor deficit, Normal speech Results - Vitals Vitals: Oxygen O2 Source Room air - Labs Labs: Laboratory Tests 10/16/17 10/16/17 10/16/17 14:10 14:10 15:50 WBC 6.2 RBC 5.09 Hgb 14.6 Hct 42.3 MCV 83.1 MCH 28.6 MCHC 34.4 RDW 13.4 Plt Count 212 MPV 7.4 L Neut # (Auto) 2.9 Lymph # (Auto) 2.9 [place] # (Auto) 0.3 Eos # (Auto) 0.1 Baso # (Auto) 0.0 Absolute Nucleated RBC 0.00 Nucleated RBC % 0.0 Sodium 138 Potassium 3.7 Chloride 102 Carbon Dioxide 25 Anion Gap 11.0 BUN 11 Creatinine 0.6 Estimated GFR (MDRD) 114 Glucose 105 H Calcium 9.8 Total Bilirubin 1.2 H AST 92 H ALT 102 H Alkaline Phosphatase 70 Total Protein 8.6 H Albumin 5.1 Globulin 3.5 Albumin/Globulin Ratio 1.5 Lipase 32 Urine Color YELLOW Urine Clarity CLOUDY Urine pH 7.5 Ur Specific [place] 1.015 Urine Protein NEGATIVE Urine Glucose (UA) NEGATIVE Urine Ketones 15 H Urine Occult Blood NEGATIVE Urine Nitrite NEGATIVE Urine Bilirubin NEGATIVE Urine Urobilinogen 0.2 (NORMAL) Ur Leukocyte Esterase SMALL H Urine RBC 0-5 Urine WBC 6-10 H Ur Squamous Epith Cells MANY Squamous H Urine Bacteria Many H Ur Microscopic Review INDICATED Urine Culture Comments NOT INDICATED - Rads (name of study) CT abd/pelvis w/ Radiology: Prelim report reviewed, EMP read contemporaneously, See rad report ( Hysterectomy and stable right presacral stimulator leads, otherwise unremarkable abdomen and pelvis CT. Appendix is well-visualized and is normal.) PD MEDICAL DECISION MAKING - ED course Complexity details: reviewed old records, reviewed results, re-evaluated patient , considered differential, d/w patient, d/w family ED course: The patient's presentation is most consistent with urinary tract infection, with positive urinalysis. Appendicitis was considered, but CT scan of the abdomen and pelvis with IV contrast reveals a normal appendix. Presentation does not suggest pyelonephritis or sepsis. There is no evidence of diverticulitis. Treatment in the emergency department included administration of normal saline 2 L IV, Zofran 4 mg IV, fentanyl 50 g IV 2, and Phenergan 12.5 mg IV. Cephalexin 500 mg was administered orally. I discussed with her and her the diagnosis, antibiotic treatment and outpatient follow-up, as well as potentially worrisome signs or symptoms that should prompt reevaluation in the emergency department she is being discharged with prescriptions for cephalexin and for Percocet, 14 tablets. - Sepsis Event Vital Signs: Oxygen O2 Source Room air Departure - Departure Disposition: 01 Home, Self Care Clinical Impression: Abdominal pain Urinary tract infection Qualifiers: Urinary tract infection type: acute cystitis Hematuria presence: without hematuria Qualified Code(s): N30.00 - Acute cystitis without hematuria Condition: Stable Instructions: ED UTI Cystitis Female Follow-Up: ABI ANNE MD [Primary Care Provider] - Prescriptions: cephALEXin [Cephalexin] 500 mg PO TID #15 tablet oxyCODONE/ACET 5/325 [Percocet 5 mg/325 mg] 1 tab PO Q4-6H PRN #14 tablet PRN Reason: Pain Comments: Drink plenty of fluids, including cranberry juice. Take cephalexin 3 times daily as prescribed. He can use Percocet as prescribed if needed for abdominal pain. Follow up with your urogynecologic specialist later this week as scheduled. Return to the emergency department if you develop increasing abdominal pain, persistent vomiting, fever with shaking chills, or otherwise worsening symptoms. Discharge Date/Time: 10/16/17 17:07
[2017-10-16] MEDS ORDERED: cephALEXin 250 MG CAPSULE PO STA (16:38)
[2017-10-16 17:07] VITALS: BP 117/77
== END 2017-10-16 17:07 | disposition home or self-care (01) ==
LOC: ED 12:07
DX: N30.00 Acute cystitis without hematuria (principal); Z86.711 Personal history of pulmonary embolism; K21.9 Gastro-esophageal reflux disease without esophagitis; M79.7 Fibromyalgia
CPT/HCPCS: 36415; 74177; 80053; 81001; 83690; 85025; 96361; 96365; 96375; 96376; 99283; 99284; A9270; J7040; Q9967; 81003; 87086

== ENCOUNTER 2018-01-17 16:16 | Emergency (ER) | payer OTHER ==
[2018-01-17 17:06] LABS: BASOPHILS % (AUTO) 0.4 %; EOSINOPHILS # (AUTO) 0.1 10^3/uL (0.0-0.7); EOSINOPHILS % (AUTO) 1.2 %; HGB - HEMOGLOBIN 13.8 g/dL (12.0-16.0); LYMPHOCYTES # (AUTO) 2.7 10^3/uL (1.5-3.5); LYMPHOCYTES % (AUTO) 51.2 %; MEAN CORPUSCULAR HEMOGLOBIN 28.8 pg (27.0-31.0); MEAN CORPUSCULAR HGB CONC 34.5 g/dL (32.0-36.0); MEAN CORPUSCULAR VOLUME 83.7 fL (81.0-99.0); MEAN PLATELET VOLUME 7.3 fL (7.9-10.8); MONOCYTES # (AUTO) 0.2 10^3/uL (0.0-1.0); MONOCYTES % (AUTO) 3.8 %; NEUTROPHILS # (AUTO) 2.3 10^3/uL (1.5-6.6); NEUTROPHILS % (AUTO) 43.4 %; PLT - PLATELET COUNT 187 10^3/uL (130-450); RED BLOOD COUNT 4.77 10^6/uL (4.20-5.40); RED CELL DISTRIBUTION WIDTH 13.2 % (12.0-15.0); WHITE BLOOD COUNT 5.3 x10^3/uL (4.8-10.8)
[2018-01-17 17:20] LABS: ALBUMIN 4.5 g/dL (3.2-5.5); ALBUMIN/GLOBULIN RATIO 1.5 (1.0-2.2); BILIRUBIN,TOTAL 0.7 mg/dL (0.2-1.0); CALCIUM 9.3 mg/dL (8.5-10.3); CREATININE 0.7 mg/dL (0.4-1.0); TOTAL PROTEIN 7.6 g/dL (6.7-8.2)
--- NOTE | 2018-01-17 18:29 | XRAY Report ---
Reason: chest pain Procedure Date: 01/17/2018 Accession Number: [id number] / [id number] Procedure: XR - Chest 2 View X-Ray CPT Code: 29091 FULL RESULT: EXAM: CHEST RADIOGRAPHY EXAM DATE: 01/17/2018 05:14 PM. CLINICAL HISTORY: Chest pain. COMPARISON: Chest 2 view PA/lateral 03/12/2017 8:45 PM. TECHNIQUE: 2 views. FINDINGS: Lungs/Pleura: No focal opacities evident. No pleural effusion. No pneumothorax. Normal volumes. Mediastinum: Heart and mediastinal contours are unremarkable. Other: None. IMPRESSION: Normal 2-view chest radiography. RADIA
--- NOTE | 2018-01-17 19:19 | ED Physician Documentation ---
PD HPI CHEST PAIN - Stated complaint Stated Complaint: CP/RT SHOULDER PX - Chief complaint Chief Complaint: Cardiac - History obtained from History obtained from: Patient - History of Present Illness Timing - onset: Today (about 2 pm, shortly after eating fatty food for lunch.) Timing - onset during: Light activity Timing - details: Abrupt onset, Still present Quality: Aching, Sharp, Pain Location: Right chest, Other (right upper abdomen) Radiation: Back Worsened by: Inspiration, Movement, Palpation Associated symptoms: Nausea. No: Shortness of air, Diaphoresis, General Weakness Similar symptoms before: No diagnosis (possible gallbladder spasms.) Recently seen: Emergency Dept Review of Systems Constitutional: denies: Fever, Chills, Myalgias Nose: denies: Rhinorrhea / runny nose, Congestion Throat: denies: Sore throat Respiratory: denies: Cough GI: reports: Abdominal Pain, Nausea. denies: Vomiting, Constipation, Diarrhea Skin: denies: Rash, Lesions Neurologic: reports: Generalized weakness. denies: Focal weakness, Numbness, Near syncope PD PAST MEDICAL HISTORY - Past Medical History Cardiovascular: Pulmonary embolism, Other Respiratory: Pneumonia Neuro: Headaches, Migraines Endocrine/Autoimmune: None GI: GERD ADMISSIONS RECRUITER: None : Chronic bladder infection, Kidney stones, Other HEENT: None Psych: Depression, Anxiety, Bipolar disorder, Panic attacks, Post traumatic stress disorder Musculoskeletal: Fibromyalgia, Chronic back pain Derm: None - Past Surgical History Past Surgical History: Yes Ortho: Other /ADMISSIONS RECRUITER: section, Hysterectomy, Oophrectomy, Other HEENT: Tonsil/Adenoidectomy - Present Medications Home Medications: Ambulatory Orders Medication Instructions Recorded Confirmed lamoTRIgine [Lamictal] 150 mg PO BID 11/04/12 06/17/17 Alprazolam [Xanax] 1 - 2 mg PO DAILY 10/29/14 06/17/17 Pregabalin [Lyrica] 225 mg PO BID 04/04/15 06/17/17 Nitrofurantoin [Macrobid] 100 mg PO 09/05/17 Estrogens, Conjugated [Premarin] 01/17/18 01/17/18 - Allergies Allergies/Adverse Reactions: Allergies Allergy/AdvReac Type Severity Reaction Status Date / Time sulfamethoxazole Allergy Severe Hives Verified 01/17/18 16:37 [From Bactrim] trimethoprim [From Bactrim] Allergy Severe Hives Verified 01/17/18 16:37 azithromycin [From Zithromax] Allergy Anaphylaxis Verified 01/17/18 16:37 - Social History Does the pt smoke?: No Smoking Status: Never smoker Does the pt drink ETOH?: Yes Does the pt have substance abuse?: No - Immunizations Immunizations are current?: Yes - POLST Patient has POLST: No POLST Status: Full Code PD ED PE NORMAL - Vitals Vital signs reviewed: Yes - General General: Alert and oriented X 3, Well developed/nourished, Other (appears in pain) - HEENT HEENT: Pharynx benign - Neck Neck: Supple, no meningeal sign, No adenopathy - Cardiac Cardiac: RRR, No murmur - Respiratory Respiratory: Clear bilaterally - Abdomen Abdomen: Normal bowel sounds, Non distended, No organomegaly, Other (obese. tender RUQ with local guarding and some percussion tenderness. Rest of abd not tender. ) - Back Back: No CVA TTP - Derm Derm: Normal color, Warm and dry - Extremities Extremities: No deformity, No tenderness to palpate, Normal ROM s pain, No edema, No calf tenderness / cord - Neuro Neuro: Alert and oriented X 3, No motor deficit, Normal speech Results - Vitals Vitals: Oxygen O2 Source Room air - Labs Labs: Laboratory Tests 01/17/18 01/17/18 01/17/18 17:00 17:00 17:00 WBC 5.3 RBC 4.77 Hgb 13.8 Hct 39.9 MCV 83.7 MCH 28.8 MCHC 34.5 RDW 13.2 Plt Count 187 MPV 7.3 L Neut # (Auto) 2.3 Lymph # (Auto) 2.7 [place] # (Auto) 0.2 Eos # (Auto) 0.1 Baso # (Auto) 0.0 Absolute Nucleated RBC 0.01 Nucleated RBC % 0.1 Sodium 139 Potassium 4.0 Chloride 106 Carbon Dioxide 24 Anion Gap 9.0 BUN 10 Creatinine 0.7 Estimated GFR (MDRD) 95 Glucose 109 H Calcium 9.3 Total Bilirubin 0.7 AST 47 H ALT 60 Alkaline Phosphatase 62 Troponin I < 0.04 Total Protein 7.6 Albumin 4.5 Globulin 3.1 Albumin/Globulin Ratio 1.5 Lipase 29 - Rads (name of study) RUQ US Radiology: Prelim report reviewed (normal) chest xray Radiology: Prelim report reviewed (no acute process) PD MEDICAL DECISION MAKING - ED course Complexity details: considered differential (consider biliary colic. could be stomach or pancreatic. Will get labs and U/S. Patient known to ED for multiple visits.), d/w patient Departure - Departure Disposition: 01 Home, Self Care Clinical Impression: Right upper quadrant abdominal pain Condition: Stable Record reviewed to determine appropriate education?: Yes Instructions: ED Abdominal Pain Unkn Cause Follow-Up: ABI ANNE MD [Primary Care Provider] - Comments: This may have been a gallbladder spasm though your ultrasound appears normal at this time. There is no signs of acute infection or inflammation to it. Avoid fatty foods. Continue usual medications at home. Return if needed. Discharge Date/Time: 01/17/18 23:52
[2018-01-17] MEDS ORDERED: HYDROmorphone 1 MG/ML CARPUJECT IM STA (19:44)
[2018-01-17] MEDS ORDERED: ONDANSETRON 4 MG/2 ML VIAL IM STA (19:45)
--- NOTE | 2018-01-17 21:03 | Ultrasound Report ---
Reason: RUQ abd pain Procedure Date: 01/17/2018 Accession Number: [id number] / [id number] Procedure: US - Abdomen Limited CPT Code: FULL RESULT: EXAM: ABDOMEN ULTRASOUND LIMITED, RIGHT UPPER QUADRANT EXAM DATE: 01/17/2018 08:08 PM. CLINICAL HISTORY: Right upper quadrant abdominal pain. COMPARISON: Abdomen limited 03/12/2017 8:13 PM. Abdomen/pelvis with contrast 10/16/2017 3:51 PM. TECHNIQUE: Real-time scanning was performed with static images obtained. FINDINGS: Liver: Uniform increased echogenicity. 22.2 cm. Main portal vein flow: Hepatopetal. Gallbladder: Normal. No stones, wall thickening, or sonographic Baum's sign. Biliary System: CBD measures 5.0 mm. No intrahepatic or extrahepatic ductal dilatation. Other: Normal right kidney. IMPRESSION: 1. Hepatomegaly with fatty infiltration. 2. No cholelithiasis or cholecystitis. RADIA
[2018-01-17] MEDS ORDERED: KETOROLAC 60 MG/2 ML VIAL IVP STA (21:45)
[2018-01-17] MEDS ORDERED: HYDROmorphone 2 MG/ML VIAL IVP STA (21:45)
[2018-01-17] MEDS ORDERED: PROCHLORPERAZINE 10 MG/2 ML VIAL IVP STA (21:45)
[2018-01-17 23:30] VITALS: BP 106/77
== END 2018-01-17 23:52 | disposition home or self-care (01) ==
LOC: ED 16:16
DX: R10.11 Right upper quadrant pain (principal); R00.0 Tachycardia, unspecified; Z86.711 Personal history of pulmonary embolism
CPT/HCPCS: 36415; 71046; 76705; 80053; 83690; 84484; 85025; 93005; 96372; 96374; 96375; 99283; J1170

== ENCOUNTER 2018-04-10 15:26 | Emergency (ER) | payer OTHER ==
[2018-04-10 16:21] LABS: BASOPHILS % (AUTO) 0.4 %; EOSINOPHILS # (AUTO) 0.1 10^3/uL (0.0-0.7); EOSINOPHILS % (AUTO) 1.2 %; HGB - HEMOGLOBIN 14.4 g/dL (12.0-16.0); LYMPHOCYTES # (AUTO) 2.9 10^3/uL (1.5-3.5); LYMPHOCYTES % (AUTO) 51.4 %; MEAN CORPUSCULAR HEMOGLOBIN 28.5 pg (27.0-31.0); MEAN CORPUSCULAR HGB CONC 33.8 g/dL (32.0-36.0); MEAN CORPUSCULAR VOLUME 84.3 fL (81.0-99.0); MEAN PLATELET VOLUME 7.3 fL (7.9-10.8); MONOCYTES # (AUTO) 0.2 10^3/uL (0.0-1.0); MONOCYTES % (AUTO) 3.6 %; NEUTROPHILS # (AUTO) 2.5 10^3/uL (1.5-6.6); NEUTROPHILS % (AUTO) 43.4 %; PLT - PLATELET COUNT 210 10^3/uL (130-450); RED BLOOD COUNT 5.05 10^6/uL (4.20-5.40); RED CELL DISTRIBUTION WIDTH 13.9 % (12.0-15.0); WHITE BLOOD COUNT 5.7 x10^3/uL (4.8-10.8)
[2018-04-10 16:24] LABS: ALBUMIN 4.9 g/dL (3.2-5.5); ALBUMIN/GLOBULIN RATIO 1.5 (1.0-2.2); BILIRUBIN,TOTAL 0.5 mg/dL (0.2-1.0); CALCIUM 9.6 mg/dL (8.5-10.3); CREATININE 0.6 mg/dL (0.4-1.0); TOTAL PROTEIN 8.2 g/dL (6.7-8.2)
--- NOTE | 2018-04-10 17:43 | ED Physician Documentation ---
PD HPI ABD PAIN - Stated complaint Stated Complaint: ABD PX - Chief complaint Chief Complaint: Abd Pain - History obtained from History obtained from: Patient - History of Present Illness Timing - onset: Today (11 am) Timing - details: Abrupt onset, Still present. No: Intermittant Quality: Aching, Sharp, Pain Location: RLQ Radiation: Right flank Associated symptoms: Diarrhea (chronic intermittently loose stools.). No: Fever, Nausea, Vomiting Similar symptoms before: Diagnosis (states current pain is feeling c/w prior kidney stones. She subsequently also said that she had had similar flank and back pains.) Review of Systems Constitutional: denies: Fever, Chills, Myalgias Nose: denies: Rhinorrhea / runny nose, Congestion Throat: denies: Sore throat Respiratory: denies: Cough : reports: Hematuria (noted some blood in urine this morning.). denies: Dysuria, Frequency Skin: denies: Rash, Lesions Musculoskeletal: reports: Back pain (chronic). 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 : Chronic bladder infection, Kidney stones, Other HEENT: None Psych: Depression, Anxiety, Bipolar disorder, Panic attacks, Post traumatic stress disorder Musculoskeletal: Fibromyalgia, Chronic back pain Derm: None - Past Surgical History Past Surgical History: Yes Ortho: Other /BARREL RIFLER HOOK: section, Hysterectomy, Oophrectomy, Other HEENT: Tonsil/Adenoidectomy - Present Medications Home Medications: Ambulatory Orders Medication Instructions Recorded Confirmed lamoTRIgine [Lamictal] 150 mg PO BID 11/04/12 04/10/18 Alprazolam [Xanax] 1 - 2 mg PO DAILY 10/29/14 04/10/18 Nitrofurantoin [Macrobid] 100 mg PO DAILY 09/05/17 04/10/18 Estrogens, Conjugated [Premarin] 0.9 mg PO DAILY 01/17/18 04/10/18 Ondansetron Odt [Zofran] 4 mg TL Q6H PRN #10 tablet 04/10/18 Oxycodone HCl/Acetaminophen 1 - 2 each PO Q6H PRN #14 tablet 04/10/18 [Percocet 5-325 mg Tablet] Phenazopyridine HCl [Pyridium] 200 mg PO TID PRN #9 tablet 04/10/18 - Allergies Allergies/Adverse Reactions: Allergies Allergy/AdvReac Type Severity Reaction Status Date / Time sulfamethoxazole Allergy Severe Hives Verified 04/10/18 15:37 [From Bactrim] trimethoprim [From Bactrim] Allergy Severe Hives Verified 04/10/18 15:37 azithromycin [From Zithromax] Allergy Anaphylaxis Verified 04/10/18 15:37 - Social History Does the pt smoke?: No Smoking Status: Never smoker Does the pt drink ETOH?: Yes Does the pt have substance abuse?: No - Immunizations Immunizations are current?: Yes - POLST Patient has POLST: No POLST Status: Full Code PD ED PE NORMAL - Vitals Vital signs reviewed: Yes - General General: Alert and oriented X 3, No acute distress, Well developed/nourished - HEENT HEENT: Ears normal, Pharynx benign - Neck Neck: No adenopathy, No JVD - Cardiac Cardiac: RRR, No murmur - Respiratory Respiratory: Clear bilaterally - Abdomen Abdomen: Normal bowel sounds, Soft, Non distended, No organomegaly Results - Vitals Vitals: Oxygen O2 Source Room air - Labs Labs: Laboratory Tests 04/10/18 04/10/18 04/10/18 16:00 16:00 16:00 WBC 5.7 RBC 5.05 Hgb 14.4 Hct 42.6 MCV 84.3 MCH 28.5 MCHC 33.8 RDW 13.9 Plt Count 210 MPV 7.3 L Neut # (Auto) 2.5 Lymph # (Auto) 2.9 [place] # (Auto) 0.2 Eos # (Auto) 0.1 Baso # (Auto) 0.0 Absolute Nucleated RBC 0.01 Nucleated RBC % 0.1 D-Dimer Sodium 137 Potassium 3.7 Chloride 106 Carbon Dioxide 21 Anion Gap 10.0 BUN 14 Creatinine 0.6 Estimated GFR (MDRD) 113 Glucose 162 H Calcium 9.6 Total Bilirubin 0.5 AST 81 H ALT 89 H Alkaline Phosphatase 75 Total Protein 8.2 Albumin 4.9 Globulin 3.3 Albumin/Globulin Ratio 1.5 Lipase 40 Urine Color YELLOW Urine Clarity CLOUDY Urine pH 6.0 Ur Specific [place] 1.025 Urine Protein NEGATIVE Urine Glucose (UA) NEGATIVE Urine Ketones TRACE Urine Occult Blood LARGE H Urine Nitrite NEGATIVE Urine Bilirubin NEGATIVE Urine Urobilinogen 0.2 (NORMAL) Ur Leukocyte Esterase NEGATIVE Urine RBC TNTC H Urine WBC 0-3 Ur Squamous Epith Cells MANY Squamous H Urine Bacteria Many H Ur Microscopic Review INDICATED Urine Culture Comments NOT INDICATED 04/10/18 16:00 WBC RBC Hgb Hct MCV MCH MCHC RDW Plt Count MPV Neut # (Auto) Lymph # (Auto) [place] # (Auto) Eos # (Auto) Baso # (Auto) Absolute Nucleated RBC Nucleated RBC % D-Dimer < 200.0 L Sodium Potassium Chloride Carbon Dioxide Anion Gap BUN Creatinine Estimated GFR (MDRD) Glucose Calcium Total Bilirubin AST ALT Alkaline Phosphatase Total Protein Albumin Globulin Albumin/Globulin Ratio Lipase Urine Color Urine Clarity Urine pH Ur Specific [place] Urine Protein Urine Glucose (UA) Urine Ketones Urine Occult Blood Urine Nitrite Urine Bilirubin Urine Urobilinogen Ur Leukocyte Esterase Urine RBC Urine WBC Ur Squamous Epith Cells Urine Bacteria Ur Microscopic Review Urine Culture Comments - Rads (name of study) KUB CT Radiology: Prelim report reviewed (no acute process. No stones. ), See rad report PD MEDICAL DECISION MAKING - ED course Complexity details: reviewed results (no significant/surgical causes seen on CT. ), re-evaluated patient (pain less some with IV pain meds. Had agreed with her on helping decrease her pain, so did give some IV meds. ), considered differen tial (seems likely kidney stone, but also consider unusual causes such as appy, diverticulitis, vascular.), d/w patient Departure - Departure Disposition: 01 Home, Self Care Clinical Impression: Abdominal pain Condition: Stable Record reviewed to determine appropriate education?: Yes Instructions: ED Abdominal Pain Unkn Cause Follow-Up: ABI ANNE MD [Primary Care Provider] - Prescriptions: Ondansetron Odt [Zofran] 4 mg TL Q6H PRN #10 tablet PRN Reason: Nausea / Vomiting Oxycodone HCl/Acetaminophen [Percocet 5-325 mg Tablet] 1 - 2 each PO Q6H PRN #14 tablet PRN Reason: pain Phenazopyridine HCl [Pyridium] 200 mg PO TID PRN #9 tablet PRN Reason: dysuria Comments: Usual medications. Phenazopyridine if needed for urinary discomfort. Consider some anti-inflammatory such as naproxen or ibuprofen if this is perhaps some interstitial cystitis. Your CT scan did not show any signs of stones or other acute process. Ondansetron if needed for nausea. Pain medicine as needed. Recheck if not improved over the next 2-3 days. Discharge Date/Time: 04/10/18 23:34
[2018-04-10 17:56] LABS: BILIRUBIN,URINE NEGATIVE (NEGATIVE); GLUCOSE, URINE (UA) NEGATIVE (NEGATIVE); KETONES,URINE (UA) TRACE mg/dL (NEGATIVE); LEUKOCYTE ESTERASE, URINE NEGATIVE (NEGATIVE); NITRITE,URINE NEGATIVE (NEGATIVE); OCCULT BLOOD,URINE LARGE (NEGATIVE); PROTEIN,URINE NEGATIVE (NEGATIVE); UROBILINOGEN,URINE 0.2 (NORMAL) E.U./dL (NORMAL)
[2018-04-10 17:57] LABS: CLARITY,URINE CLOUDY (CLEAR)
[2018-04-10 18:05] LABS: SQUAMOUS EPITHELIAL CELL,UR MANY Squamous (<= Few)
[2018-04-10 18:06] LABS: BACTERIA,URINE Many /HPF (None Seen); RBC,URINE TNTC /HPF (0-5)
[2018-04-10] MEDS ORDERED: SODIUM CHLORIDE 0.9% 1,000 ML IV ONE (18:13)
[2018-04-10] MEDS ORDERED: ONDANSETRON 4 MG/2 ML VIAL IVP STA (18:14)
[2018-04-10] MEDS ORDERED: KETOROLAC 30 MG/ML VIAL IVP STA (18:14)
[2018-04-10] MEDS ORDERED: HYDROmorphone 2 MG/ML VIAL IVP STA (18:14)
[2018-04-10] MEDS ORDERED: PROMETHAZINE INJ 25 MG in SODIUM CHLORIDE 0.9% 50 ML IV STA (18:57)
--- NOTE | 2018-04-10 19:22 | CT Report ---
Reason: right abd to flank pain abrupt today Procedure Date: 04/10/2018 Accession Number: [id number] / [id number] Procedure: CT - KUB CPT Code: FULL RESULT: EXAM: CT ABDOMEN AND PELVIS (CT KUB) EXAM DATE: 04/10/2018 06:50 PM. CLINICAL HISTORY: Right abdominal to flank pain abrupt today. COMPARISONS: Abdomen/pelvis with contrast 10/16/2017 3:51 PM. TECHNIQUE: Routine axial helical CT imaging was performed through the abdomen and pelvis without IV contrast. Reconstructions: Coronal and sagittal. In accordance with CT protocol optimization, one or more of the following dose reduction techniques were utilized for this exam: automated exposure control, adjustment of mA and/or KV based on patient size, or use of iterative reconstructive technique. FINDINGS: Lung Bases: Unremarkable. Right Kidney/Ureter: No stones, hydronephrosis, or hydroureter. No perinephric fat stranding. Left Kidney/Ureter: No stones, hydronephrosis, or hydroureter. No perinephric fat stranding. Other Solid Organs: Noncontrast images of the solid organs are grossly unremarkable. Gallbladder/Bile Ducts: Unremarkable. Peritoneal Cavity: No free fluid, free air or mary adenopathy. Bowel is grossly unremarkable. Pelvic Organs: Status post hysterectomy. The urinary bladder is unremarkable. No pelvic mass, lymphadenopathy or fluid collections. Vasculature: Unremarkable. Other: Left buttock generator pack again noted with leads placed through the right S3 and S4 foramen. IMPRESSION: 1. No urinary tract stones or obstruction. 2. No acute inflammatory process within the abdomen and pelvis. RADIA
[2018-04-10] MEDS ORDERED: HYDROmorphone 1 MG/ML CARPUJECT IVP STA (19:34)
[2018-04-10] MEDS ORDERED: diphenhydrAMINE INJ 50 MG/ML VIAL IVP STA (20:45)
[2018-04-10] MEDS ORDERED: ONDANSETRON ODT 4 MG Prepack 2 TL PRN (21:11)
[2018-04-10] MEDS ORDERED: oxyCODONE/ACET 5/325 Prepack 4 PO STA (21:11)
[2018-04-10] MEDS ORDERED: PHENAZOPYRIDINE 100 MG TABLET PO STA (21:14)
[2018-04-10 21:39] VITALS: BP 137/110
== END 2018-04-10 23:34 | disposition home or self-care (01) ==
LOC: ED 15:26
DX: R10.31 Right lower quadrant pain (principal); Z86.711 Personal history of pulmonary embolism
CPT/HCPCS: 36415; 74176; 80053; 81001; 83690; 85025; 85379; 96361; 96365; 96375; 99283; A9270; J1170; J1200; J7040; 81003; 87086

== ENCOUNTER 2018-05-17 13:06 | Emergency (ER) | payer OTHER ==
[2018-05-17] MEDS ORDERED: DEXAMETHASONE 10 MG/ML VIAL PO STA (13:30)
[2018-05-17] MEDS ORDERED: IPRATROPIUM/ALBUTEROL 3 ML NEB INH STA (13:30)
[2018-05-17] MEDS ORDERED: CHERRY SYRUP 10 ML UDC PO ONE (13:50)
--- NOTE | 2018-05-17 13:51 | ED Physician Documentation ---
PD HPI URI - Stated complaint Stated Complaint: SOA/COUGH/FEVER - Chief complaint Chief Complaint: Resp - History obtained from History obtained from: Patient - History of Present Illness Timing - onset: Yesterday Associated symptoms: Fever, Sore throat, Dry cough - Additional information Additional information: ,The patient is a 37-year-old female who presents with cough that started yesterday and is worse today. She had a fever to 101 degrees this morning. She reports sore throat from coughing, and reports headache. She denies abdominal pain, nausea or vomiting. She reports history of a similar symptom about 6 months ago. She had her flu shot earlier this year. She quit smoking cigarettes 15 years ago. 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 : Chronic bladder infection, Kidney stones, Other HEENT: None Psych: Depression, Anxiety, Bipolar disorder, Panic attacks, Post traumatic stress disorder Musculoskeletal: Fibromyalgia, Chronic back pain Derm: None - Past Surgical History Past Surgical History: Yes Ortho: Other /HOSPITAL LIBRARIAN: section, Hysterectomy, Oophrectomy, Other HEENT: Tonsil/Adenoidectomy - Present Medications Home Medications: Ambulatory Orders Medication Instructions Recorded Confirmed lamoTRIgine [Lamictal] 150 mg PO BID 11/04/12 05/17/18 Alprazolam [Xanax] 1 - 2 mg PO DAILY 10/29/14 05/17/18 Nitrofurantoin [Macrobid] 100 mg PO DAILY 09/05/17 05/17/18 Estrogens, Conjugated [Premarin] 0.9 mg PO DAILY 01/17/18 05/17/18 Ondansetron Odt [Zofran] 4 mg TL Q6H PRN #10 tablet 04/10/18 05/17/18 Phenazopyridine HCl [Pyridium] 200 mg PO TID PRN #9 tablet 04/10/18 05/17/18 Albuterol Sulf [Ventolin Hfa 1 - 2 puffs INH Q4HR PRN #1 inhaler 05/17/18 Inhaler] Duloxetine HCl [Cymbalta] 60 mg PO DAILY 05/17/18 05/17/18 predniSONE [Prednisone] 40 mg PO DAILY #10 tablet 05/17/18 - Allergies Allergies/Adverse Reactions: Allergies Allergy/AdvReac Type Severity Reaction Status Date / Time sulfamethoxazole Allergy Severe Hives Verified 05/18/18 04:34 [From Bactrim] trimethoprim [From Bactrim] Allergy Severe Hives Verified 05/18/18 04:34 azithromycin [From Zithromax] Allergy Anaphylaxis Verified 05/18/18 04:34 - Social History Does the pt smoke?: No Smoking Status: Never smoker Does the pt drink ETOH?: Yes Does the pt have substance abuse?: No - Immunizations Immunizations are current?: Yes - POLST Patient has POLST: No POLST Status: Full Code PD ED PE NORMAL - Vitals Vital signs reviewed: Yes (Initially tachycardic) - General General: Alert and oriented X 3, Well developed/nourished, Other (Overweight) - HEENT HEENT: Atraumatic, Pharynx benign - Neck Neck: Supple, no meningeal sign, No adenopathy - Cardiac Cardiac: Other (Rapid rate, regular rhythm) - Respiratory Respiratory: Other (Faint expiratory wheezing bilaterally.) - Abdomen Abdomen: Soft, Non tender - Back Back: No CVA TTP - Derm Derm: No rash - Extremities Extremities: No edema, No calf tenderness / cord - Neuro Neuro: Alert and oriented X 3, No motor deficit Results - Vitals Vitals: Vital Signs - 24 hr 05/17/18 05/17/18 05/17/18 13:17 14:10 14:15 Temperature 37.0 C Heart Rate 137 H 142 H 116 H Respiratory 20 24 21 Rate Blood Pressure 121/94 H 134/91 H O2 Saturation 96 94 05/17/18 05/17/18 05/17/18 14:20 14:25 14:28 Temperature Heart Rate 141 H 117 H 114 H Respiratory 24 22 17 Rate Blood Pressure 128/94 H 109/50 L 109/50 L O2 Saturation 97 100 05/17/18 05/17/18 05/17/18 14:30 14:45 14:50 Temperature Heart Rate 115 H 127 H 114 H Respiratory 22 25 H 20 Rate Blood Pressure 124/78 131/98 H 108/88 H O2 Saturation 95 05/17/18 05/17/18 05/17/18 14:55 15:00 15:15 Temperature Heart Rate 117 H 115 H 114 H Respiratory 20 20 20 Rate Blood Pressure 119/82 H 126/64 129/85 H O2 Saturation 95 95 95 /05/17/18 05/17/18 16:10 16:15 16:25 Temperature Heart Rate 121 H 127 H 133 H Respiratory 21 19 22 Rate Blood Pressure 143/77 H 135/78 H 134/78 H O2 Saturation 95 97 97 05/17/18 18:08 Temperature 36.4 C L Heart Rate 121 H Respiratory 18 Rate Blood Pressure 140/98 H O2 Saturation 93 Oxygen O2 Source Room air - Labs Labs: Laboratory Tests 05/17/18 14:15 D-Dimer < 200.0 L - Rads (name of study) 2-view CXR Radiology: Prelim report reviewed, EMP read contemporaneously, See rad report (Mild bronchial wall thickening centrally, suggesting airways disease, which can be seen on an acute or chronic basis in the proper setting. No focal consolidation or pleural effusions.) PD MEDICAL DECISION MAKING - ED course Complexity details: reviewed old records, reviewed results, re-evaluated patient, considered differential, d/w patient, d/w family ED course: The patient's presentation is most consistent with asthmatic bronchitis. Chest x-ray does not reveal evidence of pneumonia, congestive heart failure, or pneumothorax. Pulmonary embolus was considered, but is unlikely with a negative d-dimer. Treatment in the emergency department included administration of DuoNeb nebulizer and dexamethasone 10 mg orally. Respiratory status improved with this treatment. However she continued to be tachycardic. Initially her heart rate was in the 130s. It was thought that perhaps her dyspnea was at least partly related to her tachycardia. Administration of metoprolol 5 mg IV 2 brought her heart rate down into the 120s. Diltiazem 10 mg was administered IV, along with lorazepam 0.5 mg IV. Her heart rate temporarily came down to the 100 range. Normal saline 2 L was administered IV. She complained of "burning in my lungs" with inspiration. GI cocktail was administered, and diminished the burning discomfort in her substernal chest. Review of her medical records reveals a long history of tachycardia. She reports that the tachycardia in the past was due to Lyrica, which she has subsequently discontinued, with resolution of the tachycardia. At the time of discharge she remains tachycardic in the 1 teens, but her respiratory symptoms are much improved. She is being discharged with prescription for albuterol inhaler and prednisone. I discussed with her and her female charge coordinator the expected course of illness, symptomatic treatment and outpatient follow-up, as well as potentially worrisome signs or symptoms that should prompt reevaluation in the emergency department. Departure - Departure Disposition: Home, Self Care Clinical Impression: Bronchitis, Tachycardia Condition: Stable Instructions: ED Bronchitis Asthmatic Follow-Up: ABI ANNE MD [Primary Care Provider] - Prescriptions: Albuterol Sulf [Ventolin Hfa Inhaler] 1 - 2 puffs INH Q4HR PRN #1 inhaler PRN Reason: Shortness Of Air/Wheezing predniSONE [Prednisone] 40 mg PO DAILY #10 tablet Comments: You can use albuterol inhaler as needed for shortness of breath. Take prednisone daily for 5 days as prescribed. You can use Tylenol or ibuprofen if needed for fever or discomfort. Follow-up with your primary physician within 1-2 weeks. Call to schedule an appointment. Return to the emergency department if you develop increasing difficulty breathing, or otherwise worsening symptoms. Discharge Date/Time: 05/17/18 18:13
[2018-05-17] MEDS ORDERED: PROMETHAZINE 25 MG TABLET PO STA (13:56)
[2018-05-17] MEDS ORDERED: METOPROLOL 5 MG/5 ML VIAL IVP STA ×2 (14:05→14:37)
[2018-05-17] MEDS ORDERED: LORazepam 2 MG/ML VIAL IVP STA (14:09)
[2018-05-17] MEDS ORDERED: diltiaZEM INJ 5 MG/ML VIAL IVP STA (15:44)
[2018-05-17] MEDS ORDERED: SODIUM CHLORIDE 0.9% 1,000 ML IV ONE ×2 (15:44→16:37)
[2018-05-17] MEDS ORDERED: MAG HYDROX/AL HYDROX/SIMETH 30 ML UDC PO STA (15:45)
[2018-05-17] MEDS ORDERED: LIDOCAINE VISCOUS 2% 15 ML UDC MM STA (15:45)
--- NOTE | 2018-05-17 17:49 | XRAY Report ---
Reason: dyspnea Procedure Date: 05/17/2018 Accession Number: [id number] / [id number] Procedure: XR - Chest 2 View X-Ray CPT Code: 64987 FULL RESULT: EXAM: CHEST RADIOGRAPHY EXAM DATE: 05/17/2018 05:23 PM. CLINICAL HISTORY: Dyspnea. COMPARISON: CHEST 2 VIEW 01/17/2018 5:14 PM. TECHNIQUE: 2 views. FINDINGS: Lungs/Pleura: Small amount of bronchial wall thickening centrally. No focal lung consolidation. No pleural effusion. No pneumothorax. Mediastinum: Cardiac silhouette size appears unremarkable. Other: Osseous structures appear stable. IMPRESSION: Mild bronchial wall thickening centrally, suggesting airways disease, which can be seen on an acute or chronic basis in the proper setting. No focal consolidation or pleural effusions. RADIA
[2018-05-17 18:09] VITALS: BP 140/98
== END 2018-05-17 18:13 | disposition home or self-care (01) ==
LOC: ED 13:06
DX: J40 Bronchitis, not specified as acute or chronic (principal); R00.0 Tachycardia, unspecified; Z86.711 Personal history of pulmonary embolism
CPT/HCPCS: 36415; 71046; 85379; 94640; 96361; 96374; 96375; 99284; 99285; A9270; J2060; Q0169

== ENCOUNTER 2018-05-18 04:25 | Emergency (ER) | payer OTHER ==
[2018-05-18] MEDS ORDERED: BUFFERED LIDOCAINE 10 ML SYRINGE SUBQ STA (04:45)
[2018-05-18] MEDS ORDERED: BACITRACIN OINT TOP STA (05:02)
--- NOTE | 2018-05-18 05:03 | ED Physician Documentation ---
PD HPI LOWER EXT INJURY - Stated complaint Stated Complaint: L LEG LAC - Chief complaint Chief Complaint: Laceration - History obtained from History obtained from: Patient - History of Present Illness PD HPI LOW EXT INJURY LOCATION: Left, Lower leg Type of injury: Fall Where injury occurred: Home Timing - onset: Today Timing - duration: Minutes Timing - details: Abrupt onset, Still present Improved by: Rest, Immobilization Worsened by: Moving, Palpating Associated symptoms: No: Weakness, Numbness, Tingling, Swelling, Discolored Contributing factors: No: Anticoagulated Similar symptoms before: Diagnosis (laceration) Recently seen: Emergency Dept - Additional information Additional information: 37-year-old female who was seen in the emergency department earlier in the day for asthmatic bronchitis with cough and fever was at home she got up to go to the bathroom felt a little bit lightheaded and dizzy and her dog jumped up on her when she stopped walking and she fell backwards lacerating her calf on the baseboard heater. She is coming now for suturing. She states that she feels her lung condition is improving and will resolve. Review of Systems Constitutional: reports: Fever Respiratory: reports: Dyspnea, Cough, Wheezing Skin: reports: Laceration (s) Musculoskeletal: reports: Extremity pain. 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 : Chronic bladder infection, Kidney stones, Other HEENT: None Psych: Depression, Anxiety, Bipolar disorder, Panic attacks, Post traumatic stress disorder Musculoskeletal: Fibromyalgia, Chronic back pain Derm: None - Past Surgical History Past Surgical History: Yes Ortho: Other /WORLD DESIGNER: section, Hysterectomy, Oophrectomy, Other HEENT: Tonsil/Adenoidectomy - Present Medications Home Medications: Ambulatory Orders Medication Instructions Recorded Confirmed lamoTRIgine [Lamictal] 150 mg PO BID 11/04/12 05/17/18 Alprazolam [Xanax] 1 - 2 mg PO DAILY 10/29/14 05/17/18 Nitrofurantoin [Macrobid] 100 mg PO DAILY 09/05/17 05/17/18 Estrogens, Conjugated [Premarin] 0.9 mg PO DAILY 01/17/18 05/17/18 Ondansetron Odt [Zofran] 4 mg TL Q6H PRN #10 tablet 04/10/18 05/17/18 Phenazopyridine HCl [Pyridium] 200 mg PO TID PRN #9 tablet 04/10/18 05/17/18 Albuterol Sulf [Ventolin Hfa 1 - 2 puffs INH Q4HR PRN #1 inhaler 05/17/18 Inhaler] Duloxetine HCl [Cymbalta] 60 mg PO DAILY 05/17/18 05/17/18 predniSONE [Prednisone] 40 mg PO DAILY #10 tablet 05/17/18 - Allergies Allergies/Adverse Reactions: Allergies Allergy/AdvReac Type Severity Reaction Status Date / Time sulfamethoxazole Allergy Severe Hives Verified 05/18/18 04:34 [From Bactrim] trimethoprim [From Bactrim] Allergy Severe Hives Verified 05/18/18 04:34 azithromycin [From Zithromax] Allergy Anaphylaxis Verified 05/18/18 04:34 - Social History Does the pt smoke?: No Smoking Status: Never smoker Does the pt drink ETOH?: Yes Does the pt have substance abuse?: No - Immunizations Immunizations are current?: Yes - POLST Patient has POLST: No POLST Status: Full Code PD ED PE NORMAL - Vitals Vital signs reviewed: Yes (tachy ) - General General: Alert and oriented X 3, No acute distress, Well developed/nourished - HEENT HEENT: Atraumatic, PERRL, EOMI - Respiratory Respiratory: No respiratory distress - Derm Derm: Normal color, Warm and dry, No rash - Extremities Extremities: No deformity, No edema, Other (over the posterior left calf is a 4cm laceration into the sub-Q fat. The wound is clean and does not involve deeper structures. distal n/v is intact. ) - Neuro Neuro: Alert and oriented X 3, hide tanner 2-12 intact, No motor deficit, No sensory deficit, Normal speech Eye Opening: Spontaneous Motor: Obeys Commands Verbal: Oriented GCS Score: 15 - Psych Psych: Normal mood, Normal affect Results - Vitals Vitals: Vital Signs - 24 hr 05/18/18 04:31 Temperature 37.4 C Heart Rate 124 H Respiratory 18 Rate Blood Pressure 172/112 H O2 Saturation 97 Oxygen O2 Source Room air Procedures - Laceration (location) left calf Length in cm: 4 Wound type: Irregular, Into subcut fat, Clean Neurovascular status: Sensory intact, Motor intact Anesthesia: Lidocaine 1%, With bicarb Wound Preparation: Hibiclens, Irrigated copiously NS, Wound explored, To the base Skin layer closure: Nylon, Interrupted, Size #-0 - enter number (4-0), Sutures - enter # (6) Other: Patient tolerated well, No complications, Neurovascular intact, Dressing applied Complexity: Simple PD MEDICAL DECISION MAKING - ED course Complexity details: considered differential, d/w patient ED course: 37-year-old female with a laceration to her posterior calf continues to have tachycardia but appears to be improving with her lung disease. Her laceration is sutured and she tolerates this well. Departure - Departure Disposition: 01 Home, Self Care Clinical Impression: Laceration of calf Qualifiers: Encounter type: initial encounter Laterality: left Qualified Code(s): S81.812A - Laceration without foreign body, left lower leg, initial encounter Condition: Stable Instructions: ED Laceration All Follow-Up: ABI ANNE MD [Primary Care Provider] - Comments: Sutures will need to be removed in 10 days
[2018-05-18 05:17] VITALS: BP 149/99
== END 2018-05-18 05:20 | disposition home or self-care (01) ==
LOC: ED 04:25
DX: S81.812A Laceration without foreign body, left lower leg, initial encounter (principal); R00.0 Tachycardia, unspecified
CPT/HCPCS: 12002; 99282; 99283; A9270

== ENCOUNTER 2018-06-12 12:52 | Outpatient (CLI) | payer OTHER | END 2018-06-12 12:53 | disposition critical access hospital (66) | LOC: EMS 12:52 | PROVIDERS: ATTEND Surgery | DX: R10.31 Right lower quadrant pain (principal); R11.0 Nausea | CPT/HCPCS: A0425; A0429 ==

== ENCOUNTER 2018-06-12 13:10 | Emergency (ER) | payer OTHER ==
[2018-06-12] MEDS ORDERED: SODIUM CHLORIDE 0.9% 1,000 ML IV ONE (13:28)
[2018-06-12 13:54] LABS: BASOPHILS % (AUTO) 0.7 %; EOSINOPHILS # (AUTO) 0.1 10^3/uL (0.0-0.7); EOSINOPHILS % (AUTO) 1.7 %; HGB - HEMOGLOBIN 13.9 g/dL (12.0-16.0); LYMPHOCYTES # (AUTO) 2.6 10^3/uL (1.5-3.5); LYMPHOCYTES % (AUTO) 45.4 %; MEAN CORPUSCULAR HEMOGLOBIN 29.3 pg (27.0-31.0); MEAN CORPUSCULAR HGB CONC 34.2 g/dL (32.0-36.0); MEAN CORPUSCULAR VOLUME 85.6 fL (81.0-99.0); MEAN PLATELET VOLUME 7.2 fL (7.9-10.8); MONOCYTES # (AUTO) 0.2 10^3/uL (0.0-1.0); MONOCYTES % (AUTO) 3.8 %; NEUTROPHILS # (AUTO) 2.8 10^3/uL (1.5-6.6); NEUTROPHILS % (AUTO) 48.4 %; PLT - PLATELET COUNT 232 10^3/uL (130-450); RED BLOOD COUNT 4.73 10^6/uL (4.20-5.40); RED CELL DISTRIBUTION WIDTH 13.6 % (12.0-15.0); WHITE BLOOD COUNT 5.8 x10^3/uL (4.8-10.8)
[2018-06-12] MEDS ORDERED: fentaNYL 100 MCG/2 ML VIAL IVP STA (13:54)
[2018-06-12] MEDS ORDERED: PROMETHAZINE INJ 25 MG in SODIUM CHLORIDE 0.9% 50 ML IV STA (13:54)
[2018-06-12 14:15] LABS: ALBUMIN 4.8 g/dL (3.2-5.5); ALBUMIN/GLOBULIN RATIO 1.4 (1.0-2.2); ALKALINE PHOSPHATASE 69 IU/L (42-121); ALT ALANINE AMINOTRANSFERASE 66 IU/L (10-60); AST ASPARTATE AMINOTRANSFERASE 68 IU/L (10-42); BILIRUBIN,TOTAL 0.7 mg/dL (0.2-1.0); BUN - BLOOD UREA NITROGEN 15 mg/dL (6-20); CALCIUM 9.5 mg/dL (8.5-10.3); CARBON DIOXIDE - CO2 22 mmol/L (21-32); CHLORIDE 104 mmol/L (101-111); CREATININE 0.7 mg/dL (0.4-1.0); GFR - MDRD 95 (>89); GLUCOSE 134 mg/dL (70-100); HCG,QUALITATIVE BLOOD NEGATIVE; LIPASE 35 U/L (22-51); SODIUM 138 mmol/L (135-145); TOTAL PROTEIN 8.2 g/dL (6.7-8.2)
[2018-06-12] MEDS ORDERED: IOPAMIDOL-300 100 ML VIAL ONE (14:31)
[2018-06-12] MEDS ORDERED: IOPAMIDOL-300 100 ML VIAL IVP ONE (14:52)
--- NOTE | 2018-06-12 15:13 | CT Report ---
Reason: right sided abdominal pain Procedure Date: 06/12/2018 Accession Number: [id number] / [id number] Procedure: CT - Abdomen/Pelvis W CPT Code: FULL RESULT: EXAM: CT ABDOMEN AND PELVIS EXAM DATE: 06/12/2018 02:48 PM. CLINICAL HISTORY: Right sided abdominal pain. COMPARISONS: KUB 04/10/2018 6:31 PM. TECHNIQUE: Routine helical CT imaging was performed through the abdomen and pelvis. IV contrast: ISOVUE 300 100mL. Enteric contrast: No. Reconstructions: Coronal and sagittal. In accordance with CT protocol optimization, one or more of the following dose reduction techniques were utilized for this exam: automated exposure control, adjustment of mA and/or KV based on patient size, or use of iterative reconstructive technique. FINDINGS: Lung Bases: Unremarkable. Liver: There is hepatic steatosis. No focal hepatic lesions are seen. Gallbladder/Bile Ducts: Unremarkable. Spleen: Normal. Pancreas: Normal. Adrenal Glands: Normal. Kidneys: Normal. No masses or hydronephrosis. Peritoneal Cavity/Bowel: Normal. No free fluid, free air or adenopathy. No masses or acute inflammatory process. The appendix is well visualized and normal. Pelvic Organs: Normal. The bladder and visualized pelvic organs are within normal limits. Vasculature: No aneurysms or other significant abnormality. Bones: No significant abnormality. Other: Left posterior flank generator device is in place. There are right sacral leads. IMPRESSION: Stable negative contrast enhanced CT of the abdomen and pelvis. No acute solid or hollow viscus organ abnormalities to account for the patient's presentation. RADIA
--- NOTE | 2018-06-12 15:31 | ED Physician Documentation ---
PD HPI ABD PAIN - Stated complaint Stated Complaint: RLQ PX - Chief complaint Chief Complaint: Abd Pain - Additional information Additional information: 37-year-old female presents the emergency department with a sharp stabbing right-sided abdominal pain which started today while at work. The patient's pain is been ongoing. The patient denies hematuria or dysuria. The patient has been nauseous. No diarrhea. No relieving factors. No triggering factors. 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 : Chronic bladder infection, Kidney stones, Other HEENT: None Psych: Depression, Anxiety, Bipolar disorder, Panic attacks, Post traumatic stress disorder Musculoskeletal: Fibromyalgia, Chronic back pain Derm: None - Past Surgical History Past Surgical History: Yes Ortho: Other /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: section, Hysterectomy, Oophrectomy, Other HEENT: Tonsil/Adenoidectomy - Present Medications Home Medications: Ambulatory Orders Medication Instructions Recorded Confirmed lamoTRIgine [Lamictal] 150 mg PO BID 11/04/12 05/17/18 Alprazolam [Xanax] 1 - 2 mg PO DAILY 10/29/14 05/17/18 Nitrofurantoin [Macrobid] 100 mg PO DAILY 09/05/17 05/17/18 Estrogens, Conjugated [Premarin] 0.9 mg PO DAILY 01/17/18 05/17/18 Ondansetron Odt [Zofran] 4 mg TL Q6H PRN #10 tablet 04/10/18 05/17/18 Phenazopyridine HCl [Pyridium] 200 mg PO TID PRN #9 tablet 04/10/18 05/17/18 Albuterol Sulf [Ventolin Hfa 1 - 2 puffs INH Q4HR PRN #1 inhaler 05/17/18 Inhaler] Duloxetine HCl [Cymbalta] 60 mg PO DAILY 05/17/18 05/17/18 predniSONE [Prednisone] 40 mg PO DAILY #10 tablet 05/17/18 - Allergies Allergies/Adverse Reactions: Allergies Allergy/AdvReac Type Severity Reaction Status Date / Time sulfamethoxazole Allergy Severe Hives Verified 06/12/18 13:23 [From Bactrim] trimethoprim [From Bactrim] Allergy Severe Hives Verified 06/12/18 13:23 azithromycin [From Zithromax] Allergy Anaphylaxis Verified 06/12/18 13:23 - Social History Does the pt smoke?: No Smoking Status: Never smoker Does the pt drink ETOH?: Yes Does the pt have substance abuse?: No - Immunizations Immunizations are current?: Yes - POLST Patient has POLST: No POLST Status: Full Code PD ED PE NORMAL - General General: Alert and oriented X 3, No acute distress - HEENT HEENT: Atraumatic, PERRL, EOMI, Ears normal - Neck Neck: Supple, no meningeal sign - Cardiac Cardiac: RRR, Strong equal pulses - Respiratory Respiratory: No respiratory distress - Abdomen Abdomen: Soft, Non distended - Derm Derm: Normal color - Extremities Extremities: No deformity - Neuro Neuro: Alert and oriented X 3, Normal speech - Psych Psych: Normal affect PD ED PE EXPANDED - Abdomen Abdomen Visual: 1 - tenderness (Tenderness palpation, no rebound or peritoneal signs) Results - Vitals Vitals: Vital Signs - 24 hr 06/12/18 06/12/18 06/12/18 13:19 13:24 16:02 Temperature 37.2 C Heart Rate 120 H 116 H 107 H Respiratory 16 16 16 Rate Blood Pressure 149/102 H 143/83 H 126/83 H O2 Saturation 97 98 Oxygen O2 Source Room air - Labs Labs: Laboratory Tests 06/12/18 06/12/18 06/12/18 13:10 13:10 15:50 WBC 5.8 RBC 4.73 Hgb 13.9 Hct 40.5 MCV 85.6 MCH 29.3 MCHC 34.2 RDW 13.6 Plt Count 232 MPV 7.2 L Neut # (Auto) 2.8 Lymph # (Auto) 2.6 [place] # (Auto) 0.2 Eos # (Auto) 0.1 Baso # (Auto) 0.0 Absolute Nucleated RBC 0.00 Nucleated RBC % 0.0 Sodium 138 Potassium 4.0 Chloride 104 Carbon Dioxide 22 Anion Gap 12.0 BUN 15 Creatinine 0.7 Estimated GFR (MDRD) 95 Glucose 134 H Calcium 9.5 Total Bilirubin 0.7 AST 68 H ALT 66 H Alkaline Phosphatase 69 Total Protein 8.2 Albumin 4.8 Globulin 3.4 Albumin/Globulin Ratio 1.4 Lipase 35 Serum HCG, Qual NEGATIVE Urine Color YELLOW Urine Clarity HAZY Urine pH 5.5 Ur Specific [place] 1.010 Urine Protein NEGATIVE Urine Glucose (UA) NEGATIVE Urine Ketones NEGATIVE Urine Occult Blood LARGE H Urine Nitrite NEGATIVE Urine Bilirubin NEGATIVE Urine Urobilinogen 0.2 (NORMAL) Ur Leukocyte Esterase NEGATIVE Urine RBC TNTC H Urine WBC 0-3 Ur Squamous Epith Cells MOD Squamous H Urine Bacteria Few Ur Microscopic Review INDICATED Urine Culture Comments NOT INDICATED - Rads (name of study) CT abd/pelvis Radiology: Final report received, See rad report (IMPRESSION: Stable negative contrast enhanced CT of theabdomen and pelvis. No acute solid or hollow viscus organ abnormalities to account for the patient's presentation. ) PD MEDICAL DECISION MAKING - ED course ED course: The patient's workup does not reveal any acute abnormality that would necessitate admission to the hospital or acute surgical consultation. On reevaluation the patient is resting comfortably and appears appropriate for discharge and ongoing outpatient management. I discussed the patient warning signs and recommended returning to the emergency department immediately for any worsening or any concerns Departure - Departure Disposition: 01 Home, Self Care Clinical Impression: Abdominal pain Qualifiers: Abdominal location: unspecified location Qualified Code(s): R10.9 - Unspecified abdominal pain Condition: Good Instructions: Abdominal Pain Follow-Up: ABI ANNE MD [Primary Care Provider] - Within 1 week Comments: Please return to the emergency department for worsening symptoms or any concerns Forms: Activity restrictions
[2018-06-12] MEDS ORDERED: LORazepam 2 MG/ML VIAL IVP STA (15:44)
[2018-06-12] MEDS ORDERED: KETOROLAC 15 MG/ML VIAL IVP STA (15:44)
[2018-06-12] MEDS ORDERED: HALOPERIDOL 5 MG/ML VIAL IVP ONE (15:44)
[2018-06-12] MEDS: KETOROLAC 15 MG/ML VIAL IVP STA (16:01)
[2018-06-12 16:08] LABS: BILIRUBIN,URINE NEGATIVE (NEGATIVE); GLUCOSE, URINE (UA) NEGATIVE (NEGATIVE); KETONES,URINE (UA) NEGATIVE (NEGATIVE); LEUKOCYTE ESTERASE, URINE NEGATIVE (NEGATIVE); NITRITE,URINE NEGATIVE (NEGATIVE); OCCULT BLOOD,URINE LARGE (NEGATIVE); PH,URINE 5.5 PH (5.0-7.5); PROTEIN,URINE NEGATIVE (NEGATIVE); UROBILINOGEN,URINE 0.2 (NORMAL) E.U./dL (NORMAL)
[2018-06-12 16:09] LABS: CLARITY,URINE HAZY (CLEAR)
[2018-06-12 16:23] LABS: BACTERIA,URINE Few /HPF (None Seen); RBC,URINE TNTC /HPF (0-5); SQUAMOUS EPITHELIAL CELL,UR MOD Squamous (<= Few)
[2018-06-12 17:27] VITALS: BP 108/67
== END 2018-06-12 17:28 | disposition home or self-care (01) ==
LOC: EDUNIT# → ED 13:10
DX: R10.9 Unspecified abdominal pain (principal)
CPT/HCPCS: 36415; 74177; 80053; 81001; 83690; 84703; 85025; 96361; 96365; 96375; 99283; 99284; J2060; J7040; Q9967; 81003; 87086

== ENCOUNTER 2018-09-06 16:03 | Emergency (ER) | payer OTHER ==
[2018-09-06 17:03] LABS: BASOPHILS % (AUTO) 0.3 %; EOSINOPHILS # (AUTO) 0.1 10^3/uL (0.0-0.7); EOSINOPHILS % (AUTO) 1.7 %; HGB - HEMOGLOBIN 13.8 g/dL (12.0-16.0); LYMPHOCYTES # (AUTO) 3.5 10^3/uL (1.5-3.5); LYMPHOCYTES % (AUTO) 50.1 %; MEAN CORPUSCULAR HEMOGLOBIN 28.9 pg (27.0-31.0); MEAN CORPUSCULAR HGB CONC 33.8 g/dL (32.0-36.0); MEAN CORPUSCULAR VOLUME 85.4 fL (81.0-99.0); MEAN PLATELET VOLUME 6.9 fL (7.9-10.8); MONOCYTES # (AUTO) 0.3 10^3/uL (0.0-1.0); MONOCYTES % (AUTO) 4.5 %; NEUTROPHILS % (AUTO) 43.4 %; PLT - PLATELET COUNT 230 10^3/uL (130-450); RED BLOOD COUNT 4.79 10^6/uL (4.20-5.40); RED CELL DISTRIBUTION WIDTH 12.7 % (12.0-15.0)
[2018-09-06 17:16] LABS: ALBUMIN 4.5 g/dL (3.2-5.5); ALBUMIN/GLOBULIN RATIO 1.4 (1.0-2.2); BILIRUBIN,TOTAL 0.8 mg/dL (0.2-1.0); CALCIUM 9.6 mg/dL (8.5-10.3); CREATININE 0.6 mg/dL (0.4-1.0); TOTAL PROTEIN 7.8 g/dL (6.7-8.2)
--- NOTE | 2018-09-06 17:46 | XRAY Report ---
Reason: chest pain Procedure Date: 09/06/2018 Accession Number: [id number] / [id number] Procedure: XR - Chest 2 View X-Ray CPT Code: 26677 FULL RESULT: EXAM: CHEST RADIOGRAPHY EXAM DATE: 09/06/2018 05:20 PM. CLINICAL HISTORY: Chest pain. COMPARISON: CHEST 2 VIEW 05/17/2018. TECHNIQUE: 2 views. FINDINGS: Lungs/Pleura: No focal opacities evident. No pleural effusion. No pneumothorax. Normal volumes. Mediastinum: Heart and mediastinal contours are unremarkable. Other: None. IMPRESSION: Normal 2-view chest radiography. RADIA
[2018-09-06] MEDS ORDERED: ONDANSETRON 4 MG/2 ML VIAL IVP STA (18:43)
[2018-09-06] MEDS ORDERED: SODIUM CHLORIDE 0.9% 1,000 ML IV ONE (18:43)
[2018-09-06] MEDS ORDERED: KETOROLAC 30 MG/ML VIAL IVP STA (18:43)
--- NOTE | 2018-09-06 19:16 | ED Physician Documentation ---
History of Present Illness - Stated complaint Stated Complaint: CHEST PX/SOA - Chief complaint Chief Complaint: Cardiac - History obtained from History obtained from: Patient - History of Present Illness Timing: Today Pain level max: 7 Pain level now: 6 Improved by: nothing - Additonal information Additional information: 37-year-old female presents to the emergency department with Sharp left-sided chest pain, worse with breathing. Also diarrhea. Worse with deep breathing. Worse with palpation. States it is spreading to the right chest as well. No recent surgery. No immobilization. No history of blood clots. Has not taken anything for the pain. 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 : Chronic bladder infection, Kidney stones, Other HEENT: None Psych: Depression, Anxiety, Bipolar disorder, Panic attacks, Post traumatic stress disorder Musculoskeletal: Fibromyalgia, Chronic back pain Derm: None - Past Surgical History Past Surgical History: Yes Ortho: 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: section, Hysterectomy, Oophrectomy, Other HEENT: Tonsil/Adenoidectomy - Present Medications Home Medications: Ambulatory Orders Medication Instructions Recorded Confirmed lamoTRIgine [Lamictal] 150 mg PO BID 11/04/12 05/17/18 Alprazolam [Xanax] 1 - 2 mg PO DAILY 10/29/14 05/17/18 Nitrofurantoin [Macrobid] 100 mg PO DAILY 09/05/17 05/17/18 Estrogens, Conjugated [Premarin] 0.9 mg PO DAILY 01/17/18 05/17/18 Ondansetron Odt [Zofran] 4 mg TL Q6H PRN #10 tablet 04/10/18 05/17/18 Phenazopyridine HCl [Pyridium] 200 mg PO TID PRN #9 tablet 04/10/18 05/17/18 Albuterol Sulf [Ventolin Hfa 1 - 2 puffs INH Q4HR PRN #1 inhaler 05/17/18 Inhaler] Duloxetine HCl [Cymbalta] 60 mg PO DAILY 05/17/18 05/17/18 predniSONE [Prednisone] 40 mg PO DAILY #10 tablet 05/17/18 Meloxicam [Mobic] 15 mg PO DAILY PRN #20 tablet 09/06/18 Ondansetron Odt [Zofran] 4 mg TL Q6H PRN #10 tablet 09/06/18 oxyCODONE [Roxicodone] 5 mg PO Q6H PRN #7 tablet 09/06/18 - Allergies Allergies/Adverse Reactions: Allergies Allergy/AdvReac Type Severity Reaction Status Date / Time sulfamethoxazole Allergy Severe Hives Verified 09/06/18 16:18 [From Bactrim] trimethoprim [From Bactrim] Allergy Severe Hives Verified 09/06/18 16:18 azithromycin [From Zithromax] Allergy Anaphylaxis Verified 09/06/18 16:18 - Social History Does the pt smoke?: No Smoking Status: Never smoker Does the pt drink ETOH?: Yes Does the pt have substance abuse?: No - Immunizations Immunizations are current?: Yes - POLST Patient has POLST: No POLST Status: Full Code PD ED PE NORMAL - Vitals Vital signs reviewed: Yes - General General: Alert and oriented X 3, No acute distress - HEENT HEENT: Moist mucous membranes - Neck Neck: Supple, no meningeal sign - Cardiac Cardiac: RRR, Strong equal pulses - Respiratory Respiratory: No respiratory distress, Clear bilaterally - Abdomen Abdomen: Soft, Non tender, Non distended - Derm Derm: Warm and dry, No rash - Extremities Extremities: No edema, No calf tenderness / cord - Neuro Neuro: Alert and oriented X 3 - Psych Psych: Normal mood, Normal affect - Free text exam Free text exam: TTP L chest wall. no crepitus or ecchymosis. Results - Vitals Vitals: Vital Signs - 24 hr 09/06/18 09/06/18 09/06/18 16:06 16:18 17:04 Temperature 36.7 C 36.8 C Heart Rate 78 76 66 Respiratory 20 18 22 Rate Blood Pressure 106/90 H 117/83 H 114/95 H O2 Saturation 99 97 09/06/18 09/06/18 09/06/18 17:58 19:07 20:27 Temperature Heart Rate 66 75 Respiratory 18 18 18 Rate Blood Pressure 128/74 O2 Saturation 99 98 Oxygen O2 Source Room air - EKG (time done) 1607 Rate: Rate (enter#) (78) Rhythm: NSR [place]olson: Normal Intervals: Normal MI QRS: Normal Ischemia: Normal ST segments - Labs Labs: Laboratory Tests 09/06/18 09/06/18 09/06/18 16:55 16:55 16:55 WBC 7.0 RBC 4.79 Hgb 13.8 Hct 40.9 MCV 85.4 MCH 28.9 MCHC 33.8 RDW 12.7 Plt Count 230 MPV 6.9 L Neut # (Auto) 3.0 Lymph # (Auto) 3.5 [place] # (Auto) 0.3 Eos # (Auto) 0.1 Baso # (Auto) 0.0 Absolute Nucleated RBC 0.01 Nucleated RBC % 0.2 Sodium 138 Potassium 4.0 Chloride 102 Carbon Dioxide 25 Anion Gap 11.0 BUN 14 Creatinine 0.6 Estimated GFR (MDRD) 113 Glucose 104 H Calcium 9.6 Total Bilirubin 0.8 AST 41 ALT 43 Alkaline Phosphatase 60 Troponin I < 0.04 Total Protein 7.8 Albumin 4.5 Globulin 3.3 Albumin/Globulin Ratio 1.4 Lipase 29 - Rads (name of study) cxr Radiology: Prelim report reviewed, EMP read contemporaneously, See rad report (normal) PD MEDICAL DECISION MAKING - ED course Complexity details: reviewed results, re-evaluated patient, considered differential, d/w patient, d/w family ED course: Patient with no clinical symptoms consistent with a PE. She is tender over the chest wall. Feels better after pain medication. She is well-appearing, nontoxic. No further vomiting. Tolerating p.o. without difficulty. We will continue supportive care and follow-up with her doctor. Patient counseled regarding signs and symptoms for which I believe and urgent re-evaluation would be necessary. Patient with good understanding of and agreement to plan and is comfortable going home at this time This document was made in part using voice recognition software. While efforts are made to proofread this document, sound alike and grammatical errors may occur. Departure - Departure Disposition: 01 Home, Self Care Clinical Impression: Chest wall pain, Viral syndrome, Dehydration Diarrhea Qualifiers: Diarrhea type: unspecified type Qualified Code(s): R19.7 - Diarrhea, uns pecified Condition: Good Instructions: ED Chest Pain Costochondritis, ED Viral Syndrome Follow-Up: ABI ANNE MD [Primary Care Provider] - Within 1 week Prescriptions: Meloxicam [Mobic] 15 mg PO DAILY PRN #20 tablet PRN Reason: pain Ondansetron Odt [Zofran] 4 mg TL Q6H PRN #10 tablet PRN Reason: Nausea / Vomiting oxyCODONE [Roxicodone] 5 mg PO Q6H PRN #7 tablet PRN Reason: chest wall pain Comments: Return if you worsen. This should improve over the next few days. Drink plenty of fluids. Do not drink alcohol or drive while on narcotic pain medicine. Note that many narcotic pain relievers also contain tylenol/acetaminophen. Please ensure that your total dose of acetaminophen from all sources does not exceed 3 grams (3000mg) per day. You may constipated on this medication, take a stool softener such as "Colace" twice a day while you are on it. Also recommend a [id number] laxative such as senna or MiraLAX any day that you do not have a bowel movement. If you received narcotic pain medication in the emergency department, do not drive or operate machinery for the next 24 hours. Discharge Date/Time: 09/06/18 20:53
[2018-09-06] MEDS ORDERED: PROMETHAZINE INJ 25 MG in SODIUM CHLORIDE 0.9% 50 ML IV STA (19:47)
[2018-09-06 20:28] VITALS: BP 128/74
[2018-09-06] MEDS ORDERED: oxyCODONE 5 MG TABLET PO STA (20:41)
== END 2018-09-06 20:53 | disposition home or self-care (01) ==
LOC: ED 16:03
DX: R07.89 Other chest pain (principal); E86.0 Dehydration; B34.9 Viral infection, unspecified; R19.7 Diarrhea, unspecified; K21.9 Gastro-esophageal reflux disease without esophagitis; Z86.711 Personal history of pulmonary embolism
CPT/HCPCS: 36415; 71046; 80053; 83690; 84484; 85025; 93005; 96361; 96365; 96375; 99283; 99284; A9270; J7040; 81001; 81003; 81025; 87086

== ENCOUNTER 2018-09-07 17:29 | Emergency (ER) | payer OTHER ==
[2018-09-07] MEDS ORDERED: IOPAMIDOL-370 100 ML VIAL ONE (18:28)
[2018-09-07] MEDS ORDERED: KETOROLAC 30 MG/ML VIAL IVP STA (18:57)
[2018-09-07] MEDS ORDERED: LORazepam 2 MG/ML VIAL IVP STA (18:57)
--- NOTE | 2018-09-07 19:17 | ED Physician Documentation ---
History of Present Illness - Stated complaint Stated Complaint: LFT SIDE CHEST PX/SOA - Chief complaint Chief Complaint: Cardiac - History obtained from History obtained from: Patient - History of Present Illness Timing: Today Pain level max: 8 Pain level now: 8 - Additonal information Additional information: 37-year-old female with similar symptoms as she was seen for yesterday. States the symptoms recurred today. Has stuttering speech, left-sided chest pain and a headache. Worse with deep breathing. History of PE in the past. Did not fill her prescriptions from yesterday. Has not taken anything for pain today. 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 : Chronic bladder infection, Kidney stones, Other HEENT: None Psych: Depression, Anxiety, Bipolar disorder, Panic attacks, Post traumatic stress disorder Musculoskeletal: Fibromyalgia, Chronic back pain Derm: None - Past Surgical History Past Surgical History: Yes 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: section, Hysterectomy, Oophrectomy, Other HEENT: Tonsil/Adenoidectomy - Present Medications Home Medications: Ambulatory Orders Medication Instructions Recorded Confirmed lamoTRIgine [Lamictal] 150 mg PO BID 11/04/12 05/17/18 Alprazolam [Xanax] 1 - 2 mg PO DAILY 10/29/14 05/17/18 Nitrofurantoin [Macrobid] 100 mg PO DAILY 09/05/17 05/17/18 Estrogens, Conjugated [Premarin] 0.9 mg PO DAILY 01/17/18 05/17/18 Ondansetron Odt [Zofran] 4 mg TL Q6H PRN #10 tablet 04/10/18 05/17/18 Phenazopyridine HCl [Pyridium] 200 mg PO TID PRN #9 tablet 04/10/18 05/17/18 Albuterol Sulf [Ventolin Hfa 1 - 2 puffs INH Q4HR PRN #1 inhaler 05/17/18 Inhaler] Duloxetine HCl [Cymbalta] 60 mg PO DAILY 05/17/18 05/17/18 predniSONE [Prednisone] 40 mg PO DAILY #10 tablet 05/17/18 Meloxicam [Mobic] 15 mg PO DAILY PRN #20 tablet 09/06/18 Ondansetron Odt [Zofran] 4 mg TL Q6H PRN #10 tablet 09/06/18 oxyCODONE [Roxicodone] 5 mg PO Q6H PRN #7 tablet 09/06/18 - Allergies Allergies/Adverse Reactions: Allergies Allergy/AdvReac Type Severity Reaction Status Date / Time sulfamethoxazole Allergy Severe Hives Verified 09/07/18 17:36 [From Bactrim] trimethoprim [From Bactrim] Allergy Severe Hives Verified 09/07/18 17:36 azithromycin [From Zithromax] Allergy Anaphylaxis Verified 09/07/18 17:36 - Social History Does the pt smoke?: No Smoking Status: Never smoker Does the pt drink ETOH?: Yes Does the pt have substance abuse?: No - Immunizations Immunizations are current?: Yes - POLST Patient has POLST: No POLST Status: Full Code PD ED PE NORMAL - Vitals Vital signs reviewed: Yes - General General: Alert and oriented X 3, Well developed/nourished, Other (Appears anx ious.) - HEENT HEENT: PERRL, Moist mucous membranes - Neck Neck: Supple, no meningeal sign - Cardiac Cardiac: RRR, Strong equal pulses - Respiratory Respiratory: No respiratory distress, Clear bilaterally - Abdomen Abdomen: Soft, Non tender, Non distended - Back Back: No CVA TTP - Derm Derm: Warm and dry - Extremities Extremities: No edema, No calf tenderness / cord - Neuro Neuro: Alert and oriented X 3 - Psych Psych: Normal mood, Normal affect - Free text exam Free text exam: TTP L anterior chest wall. Reproduces pain Results - Vitals Vitals: Vital Signs - 24 hr 09/07/18 09/07/18 09/07/18 17:34 19:34 21:28 Temperature 37.0 C Heart Rate 73 64 62 Respiratory 18 14 18 Rate Blood Pressure 146/110 H 94/65 124/76 O2 Saturation 99 94 97 09/07/18 21:34 Temperature 36.7 C Heart Rate Respiratory Rate Blood Pressure O2 Saturation Oxygen O2 Source Room air - Rads (name of study) CT PA Radiology: Prelim report reviewed, EMP read contemporaneously, See rad report (Normal pulmonary CT angiogram. No pulmonary emboli. 2. No cardiac enlargement or adenopathy. No significant coronary artery disease. 3. Stable 0.9 cm left lower lobe pulmonary nodule. No acute pulmonary process. 4. Fatty liver. Enlarged spleen incompletely imaged. ) PD MEDICAL DECISION MAKING - ED course Complexity details: reviewed old records, reviewed results, re-evaluated patient, considered differential, d/w patient, d/w family ED course: 37-year-old female presents to the emergency department with recurrent left- sided chest pain. Appears to be her costochondritis. No PE on CT angiogram of the chest. Her stuttering speech resolved with Ativan. Pain improved with oxycodone. Will fill her prescription from yesterday and follow-up with her doctor. Patient counseled regarding signs and symptoms for which I believe and urgent re-evaluation would be necessary. Patient with good understanding of and agreement to plan and is comfortable going home at this time This document was made in part using voice recognition software. While efforts are made to proofread this document, sound alike and grammatical errors may occur. Departure - Departure Disposition: 01 Home, Self Care Clinical Impression: Costochondritis Chest pain Qualifiers: Chest pain type: unspecified Qualified Code(s): R07.9 - Chest pain, unspecified Condition: Good Instructions: ED Chest Pain Costochondritis Follow-Up: ABI ANNE MD [Primary Care Provider] - Within 1 week Comments: Return if you worsen. Use the medications as prescribed yesterday. Your testing does not show any recurrent blood clots in your lungs. Discharge Date/Time: 09/07/18 21:40
[2018-09-07] MEDS ORDERED: IOVERSOL 320 100 ML VIAL IVP ONE (19:37)
--- NOTE | 2018-09-07 20:21 | CT Report ---
Reason: L sided chest pain, h/o PE Procedure Date: 09/07/2018 Accession Number: [id number] / [id number] Procedure: CT - ANGIO CHEST W/WO CPT Code: FULL RESULT: EXAM: CT ANGIOGRAM CHEST EXAM DATE: 09/07/2018 07:33 PM. CLINICAL HISTORY: Left sided chest pain, history of PE. COMPARISON: CHEST ANGIO 06/17/2017 2:35 . ANGIOGRAM 11/10/2008 12:38 AM. TECHNIQUE: Routine helical imaging was performed through the chest in the pulmonary arterial phase. IV Contrast: 80 mL OPTIRAY-320. Reconstructions: Coronal 3-D MIP reconstructions.Sagittal and coronal. In accordance with CT protocol optimization, one or more of the following dose reduction techniques were utilized for this exam: automated exposure control, adjustment of mA and/or KV based on patient size, or use of iterative reconstructive technique. FINDINGS: Pulmonary Arteries: Diagnostic quality: Adequate through the segmental arteries. No evidence for acute or chronic pulmonary emboli. RV/LV is within normal limits. There is no interventricular septal bowing. There is no reflux of contrast material in the IVC. Lungs/Pleura: No consolidation or edema. Mild dependent atelectasis is noted. No effusions or pneumothorax. No endobronchial lesions. No bronchial wall thickening. Stable 0.9 cm left lower lobe nodule on image 44. Small areas of calcification are noted. No new or concerning lung mass or nodule. Mediastinum: Normal. No cardiac enlargement or adenopathy. Thoracic Aorta: Unremarkable. Upper Abdomen: Mild reflux of contrast is present to the intrahepatic veins. Fatty liver. No mass. Small esophageal hernia. Enlarged spleen incompletely imaged. Other: Homogeneous enhancement of the thyroid gland. No thyroid nodule or mass. No supraclavicular or axillary lymphadenopathy identified. IMPRESSION: 1. Normal pulmonary CT angiogram. No pulmonary emboli. 2. No cardiac enlargement or adenopathy. No significant coronary artery disease. 3. Stable 0.9 cm left lower lobe pulmonary nodule. No acute pulmonary process. 4. Fatty liver. Enlarged spleen incompletely imaged. Recommend follow-up of the described nodule(s) according to the following guidelines: Fleischner Society Recommendations 2017 MacMahon et al. Radiology 2017 Solid Nodules-Low Risk Patients: <6 mm (single or multiple) - No routine follow-up* 6-8 mm (single) -CT 6-12 at months, then consider CT at 18-24 months 6-8mm (multiple) -CT 3-6 at mo, then consider at CT 18-24 months >8 mm (single) -Consider CT, PET/CT, or tissue sampling at 3 months >8 mm (multiple) -CT 3-6 at mo, then consider CT at 18-24 months Solid Nodules-High Risk Patients: <6 mm (single or multiple) -Optional CT at 12 months* 6-8 mm (single) -CT at 6-12 months, then CT at 18-24 months 6-8mm (multiple) -CT at 3-6 months, then CT at 18-24 months >8 mm (single) -Consider CT, PET/CT, or tissue sampling at 3 months >8 mm (multiple) -CT at 3-6 months, then at 18-24 months *Nodules < 6mm do not require routine follow-up, but suspicious nodule morphology, upper lobe location, or both may warrant 12 month follow-up Subsolid nodules: <6 mm (single, GG or part solid) -No routine follow-up >=6 mm (single GG) -CT at 6-12 months to confirm, then CT q2 years until 5 years >=6 mm (single part solid) -CT at 3-6 months to confirm, if unchanged and solid <6mm, annual CT for 5 years <6 mm (multiple GG or part solid) -CT at 3-6 months. If stable, consider CT at 2 and 4 years >=6 mm (multiple GG or part solid) -CT at 3-6 months. Subsequent management based on most suspicious nodule(s). Consider follow-up at 2 and 4 years for certain suspicious nodules <6mm. If solid component develops or growth, consider resection. RADIA
[2018-09-07] MEDS ORDERED: oxyCODONE 5 MG TABLET PO STA (21:27)
[2018-09-07 21:29] VITALS: BP 124/76
== END 2018-09-07 21:40 | disposition home or self-care (01) ==
LOC: ED 17:29
DX: M94.0 Chondrocostal junction syndrome [Tietze] (principal); R91.1 Solitary pulmonary nodule; Z86.711 Personal history of pulmonary embolism
CPT/HCPCS: 71275; 96374; 96375; 99283; A9270; J2060; Q9967

== ENCOUNTER 2018-12-11 19:26 | Emergency (ER) | payer OTHER ==
--- NOTE | 2018-12-11 20:28 | ED Physician Documentation ---
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 : Chronic bladder infection, Kidney stones, Other HEENT: None Psych: Depression, Anxiety, Bipolar disorder, Panic attacks, Post traumatic stress disorder Musculoskeletal: Fibromyalgia, Chronic back pain Derm: None - Past Surgical History Past Surgical History: Yes 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, Hysterectomy, Oophrectomy, Other HEENT: Tonsil/Adenoidectomy - Present Medications Home Medications: Ambulatory Orders Medication Instructions Recorded Confirmed lamoTRIgine [Lamictal] 150 mg PO BID 11/04/12 12/11/18 Alprazolam [Xanax] 1 - 2 mg PO DAILY 10/29/14 12/11/18 Nitrofurantoin [Macrobid] 100 mg PO DAILY 09/05/17 12/11/18 Estrogens, Conjugated [Premarin] 0.9 mg PO DAILY 01/17/18 12/11/18 Ondansetron Odt [Zofran] 4 mg TL Q6H PRN #10 tablet 04/10/18 12/11/18 Phenazopyridine HCl [Pyridium] 200 mg PO TID PRN #9 tablet 04/10/18 12/11/18 Albuterol Sulf [Ventolin Hfa 1 - 2 puffs INH Q4HR PRN #1 inhaler 05/17/18 12/11/18 Inhaler] Duloxetine HCl [Cymbalta] 60 mg PO DAILY 05/17/18 12/11/18 Meloxicam [Mobic] 15 mg PO DAILY PRN #20 tablet 09/06/18 12/11/18 Ondansetron Odt [Zofran] 4 mg TL Q6H PRN #10 tablet 09/06/18 12/11/18 oxyCODONE [Roxicodone] 5 mg PO Q6H PRN #7 tablet 09/06/18 12/11/18 - Allergies Allergies/Adverse Reactions: Allergies Allergy/AdvReac Type Severity Reaction Status Date / Time sulfamethoxazole Allergy Severe Hives Verified 12/11/18 19:32 [From Bactrim] trimethoprim [From Bactrim] Allergy Severe Hives Verified 12/11/18 19:32 azithromycin [From Zithromax] Allergy Anaphylaxis Verified 12/11/18 19:32 - Social History Does the pt smoke?: No Smoking Status: Never smoker Does the pt drink ETOH?: Yes Does the pt have substance abuse?: No - Immunizations Immunizations are current?: Yes - POLST Patient has POLST: No POLST Status: Full Code Results - Vitals Vitals: Vital Signs - 24 hr 12/11/18 19:29 Temperature 36.0 C L Heart Rate 120 H Respiratory 16 Rate Blood Pressure 150/95 H O2 Saturation 100 Oxygen O2 Source Room air
[2018-12-11] MEDS ORDERED: oxyCODONE 5 MG TABLET PO STA (20:36)
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
--- NOTE | 2018-12-11 21:13 | CT Report ---
Reason: head,rib inj Procedure Date: 12/11/2018 Accession Number: [id number] / [id number] Procedure: CT - HEAD WO CPT Code: FULL RESULT: EXAM: CT HEAD EXAM DATE: 12/11/2018 08:59 PM. CLINICAL HISTORY: Head,rib inj. COMPARISON: HEAD W/O 07/30/2017 8:33 AM FACIAL BONES W/O 12/11/2018 8:50 PM. TECHNIQUE: Multiaxial CT images were obtained from the foramen magnum to the vertex. Reformats: Sagittal and coronal. IV contrast: None. In accordance with CT protocol optimization, one or more of the following dose reduction techniques were utilized for this exam: automated exposure control, adjustment of mA and/or KV based on patient size, or use of iterative reconstructive technique. FINDINGS: Parenchyma: No intraparenchymal hemorrhage. No evidence of mass, midline shift, or CT findings of infarction. Jackson-white differentiation is distinct. Extraaxial Spaces: Normal for age. No subdural or epidural collections identified. Ventricles: Normal in size and position. Sinuses and Orbits: Imaged paranasal sinuses, orbits, and mastoids show no significant abnormality. Bones: No evidence of fracture or calvarial defect. Other: There is soft tissue swelling over the right side of the face. IMPRESSION: 1. Unremarkable CT scan of the brain. 2. Soft tissue swelling over the right side of the face. RADIA
--- NOTE | 2018-12-11 21:16 | XRAY Report ---
Reason: head,rib inj Procedure Date: 12/11/2018 Accession Number: [id number] / [id number] Procedure: XR - Ribs w/PA Chest RT CPT Code: FULL RESULT: EXAM: RIGHT RIB RADIOGRAPHY EXAM DATE: 12/11/2018 08:50 PM. CLINICAL HISTORY: Head,rib inj. COMPARISON: CHEST 2 VIEW 09/06/2018 5:12 PM. TECHNIQUE: 1 view of the chest and 2 views of the ribs. FINDINGS: Bones: Normal. No fracture or bone lesion. Lungs: No focal opacities. No pneumothorax. No pleural effusions. Mediastinum: Heart and mediastinal contours are unremarkable. Other: None. IMPRESSION: Normal chest and rib radiography. No acute displaced rib fracture. No pneumothorax. RADIA
--- NOTE | 2018-12-11 21:20 | CT Report ---
Reason: head,rib inj Procedure Date: 12/11/2018 Accession Number: [id number] / [id number] Procedure: CT - MAXILLOFACIAL WO CPT Code: FULL RESULT: EXAM: CT MAXILLOFACIAL WITHOUT CONTRAST EXAM DATE: 12/11/2018 08:59 PM. CLINICAL HISTORY: Head,rib inj. COMPARISONS: HEAD W/O 07/30/2017 8:33 AM. TECHNIQUE: Thin-section axial images were acquired of the face without contrast. Post-processing: Coronal and sagittal reformats. Other: None. In accordance with CT protocol optimization, one or more of the following dose reduction techniques were utilized for this exam: automated exposure control, adjustment of mA and/or KV based on patient size, or use of iterative reconstructive technique. FINDINGS: Soft Tissue: The infratemporal fossa and parapharyngeal spaces are unremarkable. There is a soft tissue contusion/swelling over the right side of the face. There are edematous infiltrative changes in the subcutaneous tissues. Orbits: Symmetric and unremarkable. Bones: No fracture or bone lesion. Temporomandibular Joints: The temporomandibular joints are symmetric and normally located. Sinuses: Normal. No mucosal thickening or fluid levels. Other: None. IMPRESSION: 1. No facial fractures. 2. Soft tissue swelling over the right side of the face. RADIA
[2018-12-11] MEDS ORDERED: oxyCODONE/ACET 5/325 Prepack 4 PO STA (21:37)
[2018-12-11] MEDS ORDERED: ONDANSETRON ODT 4 MG Prepack 2 TL STA (21:42)
[2018-12-11 21:48] VITALS: BP 139/97
== END 2018-12-11 21:55 | disposition home or self-care (01) ==
LOC: ED 19:26
DX: S09.90XA Unspecified injury of head, initial encounter (principal); S00.83XA Contusion of other part of head, initial encounter; S20.211A Contusion of right front wall of thorax, initial encounter; W20.8XXA Other cause of strike by thrown, projected or falling object, initial encounter; Y93.01 Activity, walking, marching and hiking; Y92.832 Beach as the place of occurrence of the external cause; R03.0 Elevated blood-pressure reading, without diagnosis of hypertension
CPT/HCPCS: 70450; 70486; 71101; 99283; 99284; A9270

== ENCOUNTER 2019-01-15 18:50 | Emergency (ER) | payer OTHER ==
[2019-01-15] MEDS ORDERED: HYDROmorphone 1 MG/ML CARPUJECT IM STA (20:01)
[2019-01-15] MEDS ORDERED: PROMETHAZINE 25 MG/1 ML VIAL IM STA (20:01)
[2019-01-15] MEDS ORDERED: KETOROLAC 60 MG/2 ML VIAL IM STA (20:01)
--- NOTE | 2019-01-15 20:03 | ED Physician Documentation ---
History of Present Illness - Stated complaint Stated Complaint: R SIDE PX/FALL DOWN STAIRS - Chief complaint Chief Complaint: Trauma Hd/Nk - History obtained from History obtained from: Patient - History of Present Illness Timing: Today (38-year-old woman was in a client's home today. She fell down several stairs injuring her left shoulder and right leg. No head or neck injury. Pain is severe. 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 : Chronic bladder infection, Kidney stones, Other HEENT: None Psych: Depression, Anxiety, Bipolar disorder, Panic attacks, Post traumatic stress disorder Musculoskeletal: Fibromyalgia, Chronic back pain Derm: None - Past Surgical History Past Surgical History: Yes 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, Hysterectomy, Oophrectomy, Other HEENT: Tonsil/Adenoidectomy - Present Medications Home Medications: Ambulatory Orders Medication Instructions Recorded Confirmed lamoTRIgine [Lamictal] 150 mg PO BID 11/04/12 12/11/18 Alprazolam [Xanax] 1 - 2 mg PO DAILY 10/29/14 12/11/18 Nitrofurantoin [Macrobid] 100 mg PO DAILY 09/05/17 12/11/18 Estrogens, Conjugated [Premarin] 0.9 mg PO DAILY 01/17/18 12/11/18 Ondansetron Odt [Zofran] 4 mg TL Q6H PRN #10 tablet 04/10/18 12/11/18 Phenazopyridine HCl [Pyridium] 200 mg PO TID PRN #9 tablet 04/10/18 12/11/18 Albuterol Sulf [Ventolin Hfa 1 - 2 puffs INH Q4HR PRN #1 inhaler 05/17/18 12/11/18 Inhaler] Duloxetine HCl [Cymbalta] 60 mg PO DAILY 05/17/18 12/11/18 Meloxicam [Mobic] 15 mg PO DAILY PRN #20 tablet 09/06/18 12/11/18 Ondansetron Odt [Zofran] 4 mg TL Q6H PRN #10 tablet 09/06/18 12/11/18 oxyCODONE [Roxicodone] 5 mg PO Q6H PRN #7 tablet 09/06/18 12/11/18 Ondansetron Odt [Zofran] 4 mg TL Q6H PRN #10 tablet 12/11/18 Oxycodone HCl/Acetaminophen 1 - 2 each PO Q6H PRN #10 tablet 12/11/18 [Percocet 5-325 mg Tablet] Oxycodone HCl/Acetaminophen 1 - 2 each PO Q6H PRN #14 tablet 01/15/19 [Percocet 5-325 mg Tablet] - Allergies Allergies/Adverse Reactions: Allergies Allergy/AdvReac Type Severity Reaction Status Date / Time sulfamethoxazole Allergy Severe Hives Verified 01/15/19 18:58 [From Bactrim] trimethoprim [From Bactrim] Allergy Severe Hives Verified 01/15/19 18:58 azithromycin [From Zithromax] Allergy Anaphylaxis Verified 01/15/19 18:58 - Social History Does the pt smoke?: No Smoking Status: Never smoker Does the pt drink ETOH?: Yes Does the pt have substance abuse?: No - Immunizations Immunizations are current?: Yes - POLST Patient has POLST: No POLST Status: Full Code PD ED PE NORMAL - Vitals Vital signs reviewed: Yes - General General: Alert and oriented X 3, No acute distress - HEENT HEENT: PERRL, EOMI - Neck Neck: Supple, no meningeal sign, No bony TTP - Back Back: No CVA TTP, No spinal TTP - Derm Derm: Normal color, Warm and dry - Extremities Extremities: Other (Left shoulder is posteriorly tender, abducts to about 90 degrees and then cannot go further. Internal and external rotation is relatively unaffected. Tender over the right hip without deformity. Internal and external rotation is relatively non-painful. She has a little abrasion just below the right knee. Mild tenderness of the tib-fib and ankle and foot diffusely without visible deformity.) - Neuro Neuro: Alert and oriented X 3, Normal speech - Psych Psych: Normal mood, Normal affect Results - Vitals Vitals: Vital Signs - 24 hr 01/15/19 01/15/19 18:58 21:12 Temperature 36.9 C 37.1 C Heart Rate 98 95 Respiratory 18 12 Rate Blood Pressure 165/107 H 143/90 H O2 Saturation 99 93 Oxygen O2 Source Room air - Rads (name of study) XR L shoulder, R hip, R tib fib, R foot Radiology: EMP read contemporaneously (all neg) Departure - Departure Disposition: Home, Self Care Clinical Impression: Fall down stairs Qualifiers: Encounter type: initial encounter Qualified Code(s): W10.8XXA - Fall (on) (from) other stairs and steps, initial encounter Sprain of left shoulder Qualifiers: Encounter type: initial encounter Shoulder sprain type: unspecified sprain Qualified Code(s): S43.402A - Unspecified sprain of left shoulder joint, initial encounter Contusion of right hip Qualifiers: Encounter type: initial encounter Qualified Code(s): S70.01XA - Contusion of right hip, initial encounter Contusion of right leg Qualifiers: Encounter type: initial encounter Qualified Code(s): S80.11XA - Contusion of right lower leg, initial encounter Condition: Good Record reviewed to determine appropriate education?: Yes Instructions: ED Sprain Shoulder, ED Contusion Lower Ext Prescriptions: Oxycodone HCl/Acetaminophen [Percocet 5-325 mg Tablet] 1 - 2 each PO Q6H PRN #14 tablet PRN Reason: pain Comments: Call your doctor to arrange a follow-up appointment, make the next available appointment. In the interim, return anytime if worse or if new symptoms develop.
--- NOTE | 2019-01-15 21:04 | XRAY Report ---
Reason: fall, hip, shoulder, leg inj Procedure Date: 01/15/2019 Accession Number: [id number] / [id number] Procedure: XR - Hip w/Pelvis 2-3V RT CPT Code: FULL RESULT: EXAM: RIGHT HIP RADIOGRAPHY EXAM DATE: 01/15/2019 08:37 PM. CLINICAL HISTORY: Fall downstairs, hip/left leg pain. COMPARISON: Abdominal series 11/09/2008. TECHNIQUE: 2 views including AP pelvis. FINDINGS: Bones: No fracture or bone lesion. Joints: No subluxation. Hip joints are preserved. Intact pubic symphysis and grossly symmetrical SI joints. Other: A stimulator lead projects over the right lower abdomen/pelvis. IMPRESSION: 1. No fracture or bony malalignment. RADIA
[2019-01-15] MEDS ORDERED: oxyCODONE 5 MG TABLET PO STA (21:08)
--- NOTE | 2019-01-15 21:10 | XRAY Report ---
Reason: fall, hip, shoulder, leg inj Procedure Date: 01/15/2019 Accession Number: [id number] / [id number] Procedure: XR - Foot 2 View RT CPT Code: FULL RESULT: EXAM: RIGHT FOOT RADIOGRAPHY EXAM DATE: 01/15/2019 08:35 PM. CLINICAL HISTORY: Right foot pain injury from after fall down the stairs. COMPARISON: None. TECHNIQUE: 2 views. FINDINGS: Bones: No acute fracture. A small sclerotic focus in the distal phalanx of the great toe, consistent with a benign bone island. Small plantar and dorsal calcaneal enthesophytes. Joints: No subluxation. Joint spaces are grossly preserved. DIP joints of the toes are not well depicted on the AP view due to positioning. Soft Tissues: Possible mild dorsal swelling. IMPRESSION: 1. No fracture or bony malalignment. RADIA
--- NOTE | 2019-01-15 21:11 | XRAY Report ---
Reason: fall, hip, shoulder, leg inj Procedure Date: 01/15/2019 Accession Number: [id number] / [id number] Procedure: XR - Shoulder 2 View LT CPT Code: FULL RESULT: EXAM: LEFT SHOULDER RADIOGRAPHY EXAM DATE: 01/15/2019 08:35 PM. CLINICAL HISTORY: Left shoulder pain after injury from fall down the stairs. COMPARISON: 11/04/2012. TECHNIQUE: 2 views. FINDINGS: Bones: No fracture or bone lesion. Joints: No subluxation. Glenohumeral and acromioclavicular joints are preserved. Soft tissues: No periarticular calcification. IMPRESSION: 1. No fracture or bony malalignment. RADIA
--- NOTE | 2019-01-15 21:14 | XRAY Report ---
Reason: fall, hip, shoulder, leg inj Procedure Date: 01/15/2019 Accession Number: [id number] / [id number] Procedure: XR - Tib/Fib RT CPT Code: FULL RESULT: EXAM: RIGHT TIBIA/FIBULA RADIOGRAPHY EXAM DATE: 01/15/2019 08:41 PM. CLINICAL HISTORY: Fall, hip, shoulder, leg inj. COMPARISON: None. TECHNIQUE: 2 views. FINDINGS: Bones: Normal. No fracture or bone lesion. Joints: The visualized knee and ankle joints are normal. No effusions. Soft Tissues: Normal. No soft tissue swelling. IMPRESSION: Negative tibia-fibula. RADIA
[2019-01-15 21:49] VITALS: BP 143/93
== END 2019-01-15 21:50 | disposition home or self-care (01) ==
LOC: ED 18:50
DX: S43.402A Unspecified sprain of left shoulder joint, initial encounter (principal); S70.01XA Contusion of right hip, initial encounter; S80.11XA Contusion of right lower leg, initial encounter; S80.811A Abrasion, right lower leg, initial encounter; W10.8XXA Fall (on) (from) other stairs and steps, initial encounter; Y93.F9 Activity, other caregiving; Y92.009 Unspecified place in unspecified non-institutional (private) residence as the place of occurrence of the external cause; Y99.0 Civilian activity done for income or pay
CPT/HCPCS: 73030; 73502; 73590; 73620; 96372; 99284; A9270; J1170

== ENCOUNTER 2019-02-11 14:07 | Emergency (ER) | payer OTHER ==
--- NOTE | 2019-02-11 15:07 | XRAY Report ---
Reason: productive cough Procedure Date: 02/11/2019 Accession Number: [id number] / [id number] Procedure: XR - Chest 2 View X-Ray CPT Code: 15109 Final Report FULL RESULT: EXAM: CHEST RADIOGRAPHY EXAM DATE: 02/11/2019 02:40 PM. CLINICAL HISTORY: Productive cough. COMPARISON: RIBS W/PA CHEST RT 12/11/2018 8:39 PM. TECHNIQUE: 2 views. FINDINGS: Lungs/Pleura: No focal opacities evident. No pleural effusion. No pneumothorax. Normal volumes. Mediastinum: The heart size is normal. The trachea is midline. Other: None. IMPRESSION: Negative chest RADIA
--- NOTE | 2019-02-11 15:48 | ED Physician Documentation ---
PD HPI URI - Stated complaint Stated Complaint: COUGH/SOA - Chief complaint Chief Complaint: Resp - History obtained from History obtained from: Patient - History of Present Illness Timing - onset: How many days ago (2-3) Timing duration: Days (2-3) Timing details: Abrupt onset, Still present Associated symptoms: Chills, Productive cough, Dyspnea. No: NVD, Bilateral edema Contributing factors: Travel (She had traveled to [place] and back by plane and returned 3 to 4 days ago and started with coughing wheezing productive cough and aching with fevers feeling the day after coming back. She denied any pain in her legs or any leg edema. She has had increased cough with some greenish sputum. No blood to it.). No: Sick contact Recently seen: Not recently seen Review of Systems Constitutional: reports: Chills, Myalgias, Fatigue. denies: Fever Nose: reports: Rhinorrhea / runny nose. denies: Congestion Throat: denies: Sore throat Cardiac: reports: Chest pain / pressure. 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, Hysterectomy, Oophrectomy, Other HEENT: Tonsil/Adenoidectomy - Present Medications Home Medications: Ambulatory Orders Medication Instructions Recorded Confirmed lamoTRIgine [Lamictal] 150 mg PO BID 11/04/12 12/11/18 Alprazolam [Xanax] 1 - 2 mg PO DAILY 10/29/14 12/11/18 Nitrofurantoin [Macrobid] 100 mg PO DAILY 09/05/17 12/11/18 Estrogens, Conjugated [Premarin] 0.9 mg PO DAILY 01/17/18 12/11/18 Ondansetron Odt [Zofran] 4 mg TL Q6H PRN #10 tablet 04/10/18 12/11/18 Phenazopyridine HCl [Pyridium] 200 mg PO TID PRN #9 tablet 04/10/18 12/11/18 Albuterol Sulf [Ventolin Hfa 1 - 2 puffs INH Q4HR PRN #1 inhaler 05/17/18 12/11/18 Inhaler] Duloxetine HCl [Cymbalta] 60 mg PO DAILY 05/17/18 12/11/18 Meloxicam [Mobic] 15 mg PO DAILY PRN #20 tablet 09/06/18 12/11/18 Ondansetron Odt [Zofran] 4 mg TL Q6H PRN #10 tablet 09/06/18 12/11/18 oxyCODONE [Roxicodone] 5 mg PO Q6H PRN #7 tablet 09/06/18 12/11/18 Ondansetron Odt [Zofran] 4 mg TL Q6H PRN #10 tablet 12/11/18 Oxycodone HCl/Acetaminophen 1 - 2 each PO Q6H PRN #10 tablet 12/11/18 [Percocet 5-325 mg Tablet] Oxycodone HCl/Acetaminophen 1 - 2 each PO Q6H PRN #14 tablet 01/15/19 [Percocet 5-325 mg Tablet] Albuterol Sulf [Ventolin Hfa 1 - 2 puffs INH Q4HR PRN #1 inhaler 02/11/19 Inhaler] Benzonatate [Tessalon Perle] 100 - 200 mg PO TID PRN #30 capsule 02/11/19 Doxycycline Monohydrate 100 mg PO BID #14 tablet 02/11/19 dexAMETHasone [Decadron] 4 mg PO DAILY #7 tablet 02/11/19 - Allergies Allergies/Adverse Reactions: Allergies Allergy/AdvReac Type Severity Reaction Status Date / Time sulfamethoxazole Allergy Severe Hives Verified 01/15/19 18:58 [From Bactrim] trimethoprim [From Bactrim] Allergy Severe Hives Verified 01/15/19 18:58 azithromycin [From Zithromax] Allergy Anaphylaxis Verified 01/15/19 18:58 - Social History Does the pt smoke?: No Smoking Status: Never smoker Does the pt drink ETOH?: Yes Does the pt have substance abuse?: No - Immunizations Immunizations are current?: Yes - POLST Patient has POLST: No POLST Status: Full Code PD ED PE NORMAL - Vitals Vital signs reviewed: Yes - General General: Alert and oriented X 3, No acute distress, Well developed/nourished - HEENT HEENT: Moist mucous membranes, Pharynx benign - Neck Neck: Supple, no meningeal sign, No adenopathy - Cardiac Cardiac: RRR, No murmur - Respiratory Respiratory: Clear bilaterally - Abdomen Abdomen: Soft, Non tender - Derm Derm: Normal color, Warm and dry, No rash - Neuro Neuro: Alert and oriented X 3, No motor deficit, Normal speech Results - Vitals Vitals: Vital Signs - 24 hr 02/11/19 02/11/19 14:13 16:24 Temperature 36.9 C Heart Rate 98 90 Respiratory 18 16 Rate Blood Pressure 169/102 H 150/90 H O2 Saturation 99 100 Oxygen O2 Source Room air PD MEDICAL DECISION MAKING - ED course Complexity details: considered differential, d/w patient Departure - Departure Disposition: 01 Home, Self Care Clinical Impression: Upper respiratory infection Qualifiers: URI type: unspecified URI Qualified Code(s): J06.9 - Acute upper respiratory infection, unspecified Condition: Stable Record reviewed to determine appropriate education?: Yes Instructions: ED Upper Resp Infec Abx Tx Follow-Up: KRISTYN PIMENTEL MD [Primary Care Provider] - Prescriptions: Albuterol Sulf [Ventolin Hfa Inhaler] 1 - 2 puffs INH Q4HR PRN #1 inhaler PRN Reason: Shortness Of Air/Wheezing Benzonatate [Tessalon Perle] 100 - 200 mg PO TID PRN #30 capsule PRN Reason: Cough dexAMETHasone [Decadron] 4 mg PO DAILY #7 tablet Doxycycline Monohydrate 100 mg PO BID #14 tablet Comments: The majority of the time these are viral type illnesses and we treat the symptoms to improve your cough and breathing. Use an albuterol inhaler 2 puffs 4 times a day and extra times as needed for wheezing and tightness. Decadron s teroid daily as directed to decrease airway inflammation and therefore less pre- coughing and better breathing. Stay well-hydrated. Regular cough medicine is okay as well. Tessalon if needed for cough suppression as well. With your symptoms there is some chance of it being bacterial instead and so we can add doxycycline antibiotic as well. Hopefully the combination of medications will improve you over the next several days to a week. Discharge Date/Time: 02/11/19 16:24
[2019-02-11] MEDS ORDERED: CHERRY SYRUP 10 ML UDC PO ONE (16:07)
[2019-02-11] MEDS ORDERED: DEXAMETHASONE 10 MG/ML VIAL PO STA (16:07)
[2019-02-11] MEDS ORDERED: BENZONATATE 100 MG CAPSULE PO STA (16:07)
[2019-02-11] MEDS ORDERED: DOXYCYCLINE 100 MG TABLET PO STA (16:07)
[2019-02-11 16:25] VITALS: BP 150/90
== END 2019-02-11 16:24 | disposition home or self-care (01) ==
LOC: ED 14:07
DX: J06.9 Acute upper respiratory infection, unspecified (principal); Z86.711 Personal history of pulmonary embolism
CPT/HCPCS: 71046; 99283; A9270

== ENCOUNTER 2019-03-14 19:59 | Emergency (ER) | payer OTHER ==
--- NOTE | 2019-03-14 20:41 | ED Physician Documentation ---
History of Present Illness - Stated complaint Stated Complaint: SOA - Chief complaint Chief Complaint: Cardiac - Additonal information Additional information: This is a 38-year-old female with a history of pulmonary embolism who presents with chest pain as well as right lower quadrant abdominal discomfort. Patient's main complaint today is she has had some pinching type chest pain in the left anterior chest, she states this is been present for around 2 days and is making it hard for her to breathe. She states that she ox saturation has been normal but when she takes a deep breath and she feels that she cannot quite breathe in deeply enough. She has had a pulmonary embolism in the past, and this was reportedly unprovoked, she was on anticoagulants for ~3 months and then stopped these. This was years ago. She denies any history of known heart problems. Her second complaint is she has some right lower quadrant abdominal discomfort which is moderate in severity, nonradiating. She has had any had intermittent right lower quadrant abdominal pain many times in the past and she has had work- ups including CT scans that have not showed any problems with her appendix. 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 : Chronic bladder infection, Kidney stones, Other HEENT: None Psych: Depression, Anxiety, Bipolar disorder, Panic attacks, Post traumatic stress disorder Musculoskeletal: Fibromyalgia, Chronic back pain Derm: None - Past Surgical History Past Surgical History: Yes Ortho: Other /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: section, Hysterectomy, Oophrectomy, Other HEENT: Tonsil/Adenoidectomy - Present Medications Home Medications: Ambulatory Orders Medication Instructions Recorded Confirmed lamoTRIgine [Lamictal] 150 mg PO BID 11/04/12 03/14/19 Alprazolam [Xanax] 1 - 2 mg PO DAILY 10/29/14 03/14/19 Nitrofurantoin [Macrobid] 100 mg PO DAILY 09/05/17 03/14/19 Estrogens, Conjugated [Premarin] 0.9 mg PO DAILY 01/17/18 03/14/19 Ondansetron Odt [Zofran] 4 mg TL Q6H PRN #10 tablet 12/11/18 03/14/19 Albuterol Sulf [Ventolin Hfa 1 - 2 puffs INH Q4HR PRN #1 inhaler 02/11/19 03/14/19 Inhaler] Cyclobenzaprine [Flexeril] 10 mg PO TID PRN #12 tablet 03/15/19 - Allergies Allergies/Adverse Reactions: Allergies Allergy/AdvReac Type Severity Reaction Status Date / Time sulfamethoxazole Allergy Severe Hives Verified 03/14/19 20:03 [From Bactrim] trimethoprim [From Bactrim] Allergy Severe Hives Verified 03/14/19 20:03 azithromycin [From Zithromax] Allergy Anaphylaxis Verified 03/14/19 20:03 - Social History Does the pt smoke?: No Smoking Status: Never smoker Does the pt drink ETOH?: Yes Does the pt have substance abuse?: No - Immunizations Immunizations are current?: Yes - POLST Patient has POLST: No POLST Status: Full Code PD ED PE NORMAL - Vitals Vital signs reviewed: Yes - General General: Alert and oriented X 3, No acute distress - HEENT HEENT: PERRL - Neck Neck: Supple, no meningeal sign - Cardiac Cardiac: Other (Tachycardic, regular rhythm) - Respiratory Respiratory: No respiratory distress, Clear bilaterally - Abdomen Abdomen: Normal bowel sounds, Soft, Non tender, Non distended - Derm Derm: Warm and dry - Extremities Extremities: No deformity - Neuro Neuro: Alert and oriented X 3, unix developer 2-12 intact, No motor deficit, No sensory deficit, Normal speech - Psych Psych: Normal mood, Normal affect Results - Vitals Vitals: Oxygen O2 Source Room air - EKG (time done) 20:18 Other comments: Other comments (Rate 132, rhythm sinus tachycardia, there is no ST segment elevation, Questionable less than 0.[address] depression in the lateral precordial leads, but I think this is more likely rate related, as there is no clear TP segment to compare to.) - Labs Labs: Laboratory Tests 03/14/19 03/14/19 03/14/19 20:32 20:35 20:35 WBC 8.4 RBC 5.34 Hgb 15.5 Hct 45.3 MCV 84.8 MCH 29.0 MCHC 34.2 RDW 12.4 Plt Count 247 MPV 8.5 Neut # (Auto) 3.8 Lymph # (Auto) 3.8 H [place] # (Auto) 0.6 Eos # (Auto) 0.1 Baso # (Auto) 0.0 Absolute Nucleated RBC 0.00 Nucleated RBC % 0.0 D-Dimer < 200.0 L Sodium 141 Potassium 3.2 L Chloride 103 Carbon Dioxide 22 Anion Gap 16.0 H BUN 8 Creatinine 0.6 Estimated GFR (MDRD) 112 Glucose 94 Calcium 9.6 Total Bilirubin 0.5 AST 46 H ALT 38 Alkaline Phosphatase 63 Troponin I High Sens Total Protein 8.1 Albumin 4.7 Globulin 3.4 Albumin/Globulin Ratio 1.4 Lipase 30 Urine Color Urine Clarity Urine pH Ur Specific Kenneth Urine Protein Urine Glucose (UA) Urine Ketones Urine Occult Blood Urine Nitrite Urine Bilirubin Urine Urobilinogen Ur Leukocyte Esterase Ur Microscopic Review 03/14/19 03/14/19 20:35 22:28 WBC RBC Hgb Hct MCV MCH MCHC RDW Plt Count MPV Neut # (Auto) Lymph # (Auto) [place] # (Auto) Eos # (Auto) Baso # (Auto) Absolute Nucleated RBC Nucleated RBC % D-Dimer Sodium Potassium Chloride Carbon Dioxide Anion Gap BUN Creatinine Estimated GFR (MDRD) Glucose Calcium Total Bilirubin AST ALT Alkaline Phosphatase Troponin I High Sens < 2.3 L Total Protein Albumin Globulin Albumin/Globulin Ratio Lipase Urine Color YELLOW Urine Clarity CLEAR Urine pH 7.5 Ur Specific Kenneth 1.010 Urine Protein NEGATIVE Urine Glucose (UA) NEGATIVE Urine Ketones NEGATIVE Urine Occult Blood NEGATIVE Urine Nitrite NEGATIVE Urine Bilirubin NEGATIVE Urine Urobilinogen 0.2 (NORMAL) Ur Leukocyte Esterase NEGATIVE Ur Microscopic Review NOT INDICATED - Rads (name of study) CT PE Radiology: Other (Poor bolus timing but no large pulmonary emboli seen. There is a pulmonary nodule as well as fatty liver.) PD MEDICAL DECISION MAKING - ED course Complexity details: considered differential (PE, dysrhythmia, ACS, pneumonia, pneumothorax, pleural effusion) ED course: On arrival patient is nontoxic-appearing, she is tachycardic, EKG was obtained which shows a sinus tachycardia. She was given a dose of pain medications as we ll as anti-emetics for her symptoms. Given she has a history of pulmonary embolism, PE study was ordered, which showed no large pulmonary emboli but due to poor contrast timing the smaller segmental arteries were not well evaluated. No PNA or PTX. A d-dimer was obtained and is negative, the combination of the negative CT and a negative d-dimer make PE extremely unlikely. Additionally her heart rate has come down nicely with a liter of fluids, and she has no hypoxia, no signs of DVT. Reviewing her past visits her heart rate is typically mildly elevated. CBC is unremarkable, she has no signs of her studies today, her abdominal panel is also unremarkable other than mild hypokalemia. Her AST is slightly elevated but this is typical for her, and his fax is improved from many past values. High-sensitivity troponin is negative, and ACS is extremely unlikely, a single high-sensitivity troponin is is sufficient given the duration of her symptoms. Urine is negative, and her abdomen is benign without tenderness on serial examinations, I highly doubt acute abdominal or pelvic pathology. Patient has had this lower abdominal discomfort for years, and she reports multiple past negative work-ups, sounds like this discomfort is going on in the background and it is her chest symptoms that were her reason for coming in today. Patient thinks that the pain might be due to some muscle soreness, as reducible with certain movements, she asked if Flexeril might be helpful for it, I think it is reasonable to trial, and this was prescribed after discussing the side effects. On repeat examination she is feeling better, has unremarkable vital signs, and discomfort or going home. I discussed the findings of her studies including the pulmonary nodule and the need for follow-up with her primary care provider. I reviewed return precautions with the patient, patient agrees with this plan and was discharged in the care of her friend. Departure - Departure Disposition: Home, Self Care Clinical Impression: Chest pain Qualifiers: Chest pain type: unspecified Qualified Code(s): R07.9 - Chest pain, unspecified Condition: Good Instructions: ED Chest Pain Atypical Unkn Cause Follow-Up: KRISTYN PIMENTEL MD [Primary Care Provider] - Prescriptions: Cyclobenzaprine [Flexeril] 10 mg PO TID PRN #12 tablet PRN Reason: Spasms Comments: If you are developing worsening symptoms such as increased shortness of breath, coughing up blood, fever, return to the emergency department. Otherwise please follow-up with your primary care provider. Discharge Date/Time: 03/15/19 00:58
[2019-03-14] MEDS ORDERED: SODIUM CHLORIDE 0.9% 1,000 ML IV ONE (20:42)
[2019-03-14 20:44] LABS: BASOPHILS % (AUTO) 0.2 %; EOSINOPHILS # (AUTO) 0.1 10^3/uL (0.0-0.7); EOSINOPHILS % (AUTO) 0.7 %; HGB - HEMOGLOBIN 15.5 g/dL (12.0-16.0); LYMPHOCYTES # (AUTO) 3.8 10^3/uL (1.5-3.5); LYMPHOCYTES % (AUTO) 45.8 %; MEAN CORPUSCULAR HGB CONC 34.2 g/dL (32.0-36.0); MEAN CORPUSCULAR VOLUME 84.8 fL (81.0-99.0); MEAN PLATELET VOLUME 8.5 fL (7.9-10.8); MONOCYTES # (AUTO) 0.6 10^3/uL (0.0-1.0); MONOCYTES % (AUTO) 6.8 %; NEUTROPHILS # (AUTO) 3.8 10^3/uL (1.5-6.6); NEUTROPHILS % (AUTO) 45.7 %; PLT - PLATELET COUNT 247 10^3/uL (130-450); RED BLOOD COUNT 5.34 10^6/uL (4.20-5.40); RED CELL DISTRIBUTION WIDTH 12.4 % (12.0-15.0); WHITE BLOOD COUNT 8.4 x10^3/uL (4.8-10.8)
[2019-03-14] MEDS ORDERED: MORPHINE 2 MG/ML CARPUJECT IVP STA (20:56)
[2019-03-14] MEDS ORDERED: ONDANSETRON 4 MG/2 ML VIAL IVP STA (20:56)
[2019-03-14] MEDS ORDERED: IOVERSOL 320 100 ML VIAL IVP ONE ×2 (21:00→22:32)
[2019-03-14 21:03] LABS: ALBUMIN 4.7 g/dL (3.2-5.5); ALBUMIN/GLOBULIN RATIO 1.4 (1.0-2.2); BILIRUBIN,TOTAL 0.5 mg/dL (0.2-1.0); CALCIUM 9.6 mg/dL (8.5-10.3); CREATININE 0.6 mg/dL (0.4-1.0); TOTAL PROTEIN 8.1 g/dL (6.7-8.2)
[2019-03-14] MEDS ORDERED: HYDROmorphone 1 MG/ML CARPUJECT IVP STA (21:24)
[2019-03-14] MEDS ORDERED: METOCLOPRAMIDE 10 MG/2 ML VIAL IVP STA (21:24)
[2019-03-14 22:33] LABS: BILIRUBIN,URINE NEGATIVE (NEGATIVE); GLUCOSE, URINE (UA) NEGATIVE (NEGATIVE); KETONES,URINE (UA) NEGATIVE (NEGATIVE); LEUKOCYTE ESTERASE, URINE NEGATIVE (NEGATIVE); NITRITE,URINE NEGATIVE (NEGATIVE); OCCULT BLOOD,URINE NEGATIVE (NEGATIVE); PH,URINE 7.5 PH (5.0-7.5); PROTEIN,URINE NEGATIVE (NEGATIVE); UROBILINOGEN,URINE 0.2 (NORMAL) E.U./dL (NORMAL)
[2019-03-14 22:37] LABS: CLARITY,URINE CLEAR (CLEAR)
--- NOTE | 2019-03-14 23:22 | CT Report ---
Reason: Hx PE, tachy, chest pain Procedure Date: 03/14/2019 Accession Number: [id number] / [id number] Procedure: CT - ANGIO CHEST W/WO CPT Code: Final Report FULL RESULT: EXAM: CT ANGIOGRAM CHEST EXAM DATE: 03/14/2019 10:27 PM. CLINICAL HISTORY: Hx PE, tachy, chest pain. Shortness of breath. Dizziness. COMPARISON: None. TECHNIQUE: Routine helical imaging was performed through the chest in the pulmonary arterial phase. IV Contrast: 80 ML OPTIRAY 320. Reconstructions: Coronal 3-D MIP reconstructions.Sagittal and coronal. In accordance with CT protocol optimization, one or more of the following dose reduction techniques were utilized for this exam: automated exposure control, adjustment of mA and/or KV based on patient size, or use of iterative reconstructive technique. FINDINGS: Pulmonary Arteries: Diagnostic quality: Nondiagnostic through the segmental arteries. There is poor enhancement of the pulmonary arteries due to late bolus timing. No large central pulmonary emboli are seen. Segmental vessels are not well assessed. Lungs/Pleura: Pulmonary nodule in the superior segment of the left lower lobe measuring 8 x 7 mm, series 6 image 95. No alveolar consolidation or pleural effusion seen. No pneumothorax. Mediastinum: Heart size is normal. No lymphadenopathy seen. Thoracic Aorta: Ascending aorta measures 3.1 cm. No aortic dissection. Upper Abdomen: Possible fatty infiltration of the liver. Mild splenomegaly measuring 13.3 cm. Other: None. IMPRESSION: 1. Poor enhancement of the pulmonary arteries due to late bolus timing. No large pulmonary emboli seen. Segmental vessels are not well assessed. 2. Left lower lobe superior segment pulmonary nodule measuring 8 x 7 mm, series 6 image 95. Malignancy not excluded. The size is at lower limits of resolution for PET CT, which could be considered for follow-up. Six-month follow-up chest CT could also be considered. 3. Possible fatty liver with mild splenomegaly. RADIA
[2019-03-15] MEDS ORDERED: KETOROLAC 30 MG/ML VIAL IVP STA (00:39)
[2019-03-15 00:55] VITALS: BP 135/101
== END 2019-03-15 00:58 | disposition home or self-care (01) ==
LOC: ED 19:59
DX: R07.9 Chest pain, unspecified (principal); R10.31 Right lower quadrant pain; R00.0 Tachycardia, unspecified; R91.1 Solitary pulmonary nodule; Z86.711 Personal history of pulmonary embolism
CPT/HCPCS: 36415; 71275; 80053; 81003; 83690; 84484; 85025; 85379; 93005; 96361; 96374; 96375; 99284; 99285; J1170; J2765; Q9967; 81001

== ENCOUNTER 2019-04-16 18:21 | Emergency (ER) | payer OTHER ==
[2019-04-16] MEDS ORDERED: KETOROLAC 30 MG/ML VIAL IVP STA (18:51)
--- NOTE | 2019-04-16 18:57 | ED Physician Documentation ---
History of Present Illness - Stated complaint Stated Complaint: CP/SYNCOPE - Chief complaint Chief Complaint: Cardiac - History obtained from History obtained from: Patient, Family, EMS - History of Present Illness Timing: How many hours ago (2) Pain level max: 8 Pain level now: 8 Improved by: rest Worsened by: movement - Additonal information Additional information: 38-year-old female states that she developed sharp left-sided chest pain approximately 1 to 2 hours ago. She states this occurs approximately 1 time per month. Does have a history of a pulmonary embolus approximately 7 years ago. Nothing makes it better or worse. She also states that she is developed gradual onset of abdominal pain throughout the day today, now has generalized pain. She states that her knees "gave out" from the pain and she believes that she may have lost consciousness. She states that she struck her head and has neck pain currently. No back pain. No loss of bowel or bladder control. She is not , breast-feeding or trying to become . Review of Systems Ten Systems: 10 systems reviewed and negative Constitutional: denies: Fever, Chills Nose: denies: Rhinorrhea / runny nose, Congestion Respiratory: denies: Hemoptysis, Wheezing GI: denies: Vomiting, Diarrhea Skin: denies: Rash Musculoskeletal: reports: Neck pain. 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 : Chronic bladder infection, Kidney stones, Other HEENT: None Psych: Depression, Anxiety, Bipolar disorder, Panic attacks, ADD/ADHD, Post traumatic stress disorder Musculoskeletal: Fibromyalgia, Chronic back pain Derm: None - Past Surgical History Past Surgical History: Yes Ortho: Spine surgery, Other /ANESTHESIA RESIDENT: section, Hysterectomy, Oophrectomy, Other HEENT: Tonsil/Adenoidectomy - Present Medications Home Medications: Ambulatory Orders Medication Instructions Recorded Confirmed Alprazolam [Xanax] 1 mg PO BID 10/29/14 04/16/19 Estrogens, Conjugated [Premarin] 0.9 mg PO DAILY 01/17/18 04/16/19 Ondansetron Odt [Zofran] 4 mg TL Q6H PRN #10 tablet 12/11/18 04/16/19 Albuterol Sulf [Ventolin Hfa 1 - 2 puffs INH Q4HR PRN #1 inhaler 02/11/19 04/16/19 Inhaler] Cyclobenzaprine [Flexeril] 10 mg PO TID PRN #12 tablet 03/15/19 04/16/19 Acetaminophen [Tylenol] 650 mg PO Q6H PRN 04/16/19 04/16/19 Aspirin/Acetaminophen/Caffeine 1 tab ORAL Q6HR PRN 04/16/19 04/16/19 [Excedrin Migraine Caplet] Cyclobenzaprine [Flexeril] 10 mg PO TID PRN #20 tablet 04/16/19 Duloxetine HCl 30 mg PO BID 04/16/19 04/16/19 Naproxen Sodium [Aleve] 220 mg PO BID PRN 04/16/19 04/16/19 Oxycodone HCl 5 - 10 mg PO Q6H PRN #9 tablet 04/16/19 lamoTRIgine [Subvenite] 150 mg PO BID 04/16/19 04/16/19 - Allergies Allergies/Adverse Reactions: Allergies Allergy/AdvReac Type Severity Reaction Status Date / Time sulfamethoxazole Allergy Severe Hives Verified 04/16/19 18:33 [From Bactrim] trimethoprim [From Bactrim] Allergy Severe Hives Verified 04/16/19 18:33 azithromycin [From Zithromax] Allergy Anaphylaxis Verified 04/16/19 18:33 - Social History Does the pt smoke?: No Smoking Status: Former smoker Does the pt drink ETOH?: Yes Does the pt have substance abuse?: No - Immunizations Immunizations are current?: Yes - POLST Patient has POLST: No POLST Status: Full Code PD ED PE NORMAL - Vitals Vital signs reviewed: Yes - General General: Alert and oriented X 3, No acute distress, Other (Appears very anxious.) - HEENT HEENT: Atraumatic, PERRL, Moist mucous membranes, Pharynx benign - Neck Neck: Supple, no meningeal sign, Other (Tender to palpation throughout the cervical spine, no step-off or deformity.) - Cardiac Cardiac: RRR, Strong equal pulses - Respiratory Respiratory: No respiratory distress, Clear bilaterally, Other (Tender to palpation over the left anterior chest wall) - Abdomen Abdomen: Soft, Non distended, Other (Diffusely tender to palpation without peritoneal signs) - Back Back: No CVA TTP, No spinal TTP - Derm Derm: Warm and dry - Extremities Extremities: No edema, No calf tenderness / cord - Neuro Neuro: Alert and oriented X 3, 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, No motor deficit, No sensory deficit, Normal speech Eye Opening: Spontaneous Motor: Obeys Commands Verbal: Oriented GCS Score: 15 - Psych Psych: Normal mood, Normal affect Results - Vitals Vitals: Vital Signs - 24 hr 04/16/19 04/16/19 04/16/19 18:33 18:51 20:37 Temperature 36.7 C Heart Rate 116 H 102 H 110 H Respiratory 30 H 21 20 Rate Blood Pressure 161/119 H 142/108 H 142/131 H O2 Saturation 99 94 96 04/16/19 22:06 Temperature Heart Rate 94 Respiratory 17 Rate Blood Pressure 111/70 O2 Saturation 96 Oxygen O2 Source Room air - EKG (time done) 1910 Rate: Rate (enter#) (95) Rhythm: NSR [place]: Normal Intervals: Normal DC - Labs Labs: Laboratory Tests 04/16/19 04/16/19 04/16/19 18:30 18:30 18:30 WBC 6.7 RBC 5.15 Hgb 15.1 Hct 44.4 MCV 86.2 MCH 29.3 MCHC 34.0 RDW 11.9 L Plt Count 203 MPV 9.0 Neut # (Auto) 2.6 Lymph # (Auto) 3.5 [place] # (Auto) 0.4 Eos # (Auto) 0.2 Baso # (Auto) 0.0 Absolute Nucleated RBC 0.00 Nucleated RBC % 0.0 Sodium 138 Potassium 3.6 Chloride 102 Carbon Dioxide 26 Anion Gap 10.0 BUN 8 Creatinine 0.5 Estimated GFR (MDRD) 139 Glucose 101 H Calcium 9.5 Total Bilirubin 0.7 AST 25 ALT 31 Alkaline Phosphatase 54 Troponin I High Sens 2.6 Total Protein 7.8 Albumin 4.7 Globulin 3.1 Albumin/Globulin Ratio 1.5 Lipase 33 - Rads (name of study) Head CT Radiology: Prelim report reviewed, EMP read contemporaneously, See rad report (No acute abnormalities) Cervical spine CT Radiology: Prelim report reviewed, EMP read contemporaneously, See rad report (No acute abnormalities) CT chest pulmonary angiogram Radiology: Prelim report reviewed, EMP read contemporaneously, See rad report (No acute abnormalities) CT abdomen pelvis Radiology: Prelim report reviewed, EMP read contemporaneously, See rad report (No acute abnormalities) PD MEDICAL DECISION MAKING - ED course Complexity details: reviewed results, re-evaluated patient, considered differential, d/w patient, d/w family ED course: Patient is status post a fall versus syncope today at home. Also has left-sided chest pain. History of pulmonary emboli in the past. She had altered mental status after the event. She also had neck pain. She had diffuse abdominal tenderness on examination. CTs do not show any acute findings. Laboratory tests do not show any acute abnormalities. We will prescribe muscle relaxants for home as this is helped her in the past. We will have her follow-up with her doctor for further care. Patient counseled regarding signs and symptoms for which I believe and urgent re-evaluation would be necessary. Patient with good understanding of and agreement to plan and is comfortable going home at this time This document was made in part using voice recognition software. While efforts are made to proofread this document, sound alike and grammatical errors may occur. Departure - Departure Disposition: 01 Home, Self Care Clinical Impression: Chest wall pain Syncope Qualifiers: Syncope type: unspecified Qualified Code(s): R55 - Syncope and collapse Condition: Good Instructions: ED Chest Pain Atypical Unkn Cause, ED Fainting Unkn Cause Follow-Up: KRISTYN PIMENTEL MD [Primary Care Provider] - Within 3 Days Prescriptions: Cyclobenzaprine [Flexeril] 10 mg PO TID PRN #20 tablet PRN Reason: Spasms Oxycodone HCl 5 - 10 mg PO Q6H PRN #9 tablet PRN Reason: pain Comments: Your testing does not show any acute abnormalities tonight. Return if you worsen. Follow-up with your doctor for further care. Do not drink alcohol or drive while on narcotic pain medicine. Note that many narcotic pain relievers also contain tylenol/acetaminophen. Please ensure that your total dose of acetaminophen from all sources does not exceed 3 grams (3000mg) per day. You may constipated on this medication, take a stool softener such as "Colace" twice a day while you are on it. Also recommend a glui-jdu-hoczyhy laxative such as senna or MiraLAX any day that you do not have a bowel movement. If you received narcotic pain medication in the emergency department, do not drive or operate machinery for the next 24 hours. Discharge Date/Time: 04/16/19 22:30
[2019-04-16 19:05] LABS: BASOPHILS % (AUTO) 0.3 %; EOSINOPHILS # (AUTO) 0.2 10^3/uL (0.0-0.7); EOSINOPHILS % (AUTO) 2.2 %; HGB - HEMOGLOBIN 15.1 g/dL (12.0-16.0); LYMPHOCYTES # (AUTO) 3.5 10^3/uL (1.5-3.5); LYMPHOCYTES % (AUTO) 52.8 %; MEAN CORPUSCULAR HEMOGLOBIN 29.3 pg (27.0-31.0); MEAN CORPUSCULAR VOLUME 86.2 fL (81.0-99.0); MONOCYTES # (AUTO) 0.4 10^3/uL (0.0-1.0); MONOCYTES % (AUTO) 5.5 %; NEUTROPHILS # (AUTO) 2.6 10^3/uL (1.5-6.6); NEUTROPHILS % (AUTO) 38.8 %; PLT - PLATELET COUNT 203 10^3/uL (130-450); RED BLOOD COUNT 5.15 10^6/uL (4.20-5.40); RED CELL DISTRIBUTION WIDTH 11.9 % (12.0-15.0); WHITE BLOOD COUNT 6.7 x10^3/uL (4.8-10.8)
[2019-04-16 19:19] LABS: ALBUMIN 4.7 g/dL (3.2-5.5); ALBUMIN/GLOBULIN RATIO 1.5 (1.0-2.2); BILIRUBIN,TOTAL 0.7 mg/dL (0.2-1.0); CALCIUM 9.5 mg/dL (8.5-10.3); CREATININE 0.5 mg/dL (0.4-1.0); TOTAL PROTEIN 7.8 g/dL (6.7-8.2)
--- NOTE | 2019-04-16 19:42 | XRAY Report ---
Reason: Chest Pain Procedure Date: 04/16/2019 Accession Number: [id number] / [id number] Procedure: XR - Chest 1 View X-Ray CPT Code: 89075 Final Report FULL RESULT: EXAM: CHEST RADIOGRAPHY EXAM DATE: 04/16/2019 07:29 PM. CLINICAL HISTORY: Chest pain. COMPARISON: CHEST 2 VIEW 02/11/2019 2:40 PM. TECHNIQUE: 1 view. FINDINGS: Lungs/Pleura: No focal opacities evident. No pleural effusion. No pneumothorax. Mediastinum: Within exam limitations, the cardiomediastinal contour is normal. Other: None. IMPRESSION: Normal single view chest. RADIA
[2019-04-16] MEDS ORDERED: HYDROmorphone 1 MG/ML CARPUJECT IVP STA (20:19)
[2019-04-16] MEDS ORDERED: IOVERSOL 320 100 ML VIAL IVP ONE ×2 (20:26→21:07)
[2019-04-16] MEDS ORDERED: PROCHLORPERAZINE 10 MG/2 ML VIAL IVP STA (21:26)
--- NOTE | 2019-04-16 21:33 | CT Report ---
Reason: fall, head injury Procedure Date: 04/16/2019 Accession Number: [id number] / [id number] Procedure: CT - HEAD WO CPT Code: Final Report FULL RESULT: EXAM: CT HEAD EXAM DATE: 04/16/2019 08:59 PM. CLINICAL HISTORY: Fall, head injury. COMPARISON: FACIAL BONES W/O 12/11/2018 8:50 PM BRAIN W/O 09/20/2017 8:25 AM HEAD W/O 12/11/2018 8:50 PM. TECHNIQUE: Multiaxial CT images were obtained from the foramen magnum to the vertex. Reformats: Sagittal and coronal. IV contrast: None. In accordance with CT protocol optimization, one or more of the following dose reduction techniques were utilized for this exam: automated exposure control, adjustment of mA and/or KV based on patient size, or use of iterative reconstructive technique. FINDINGS: Parenchyma: No intraparenchymal hemorrhage. No evidence of mass, midline shift, or CT findings of infarction. Jackson-white differentiation is distinct. Extraaxial Spaces: Normal for age. No subdural or epidural collections identified. Ventricles: Normal in size and position. Sinuses and Orbits: Imaged paranasal sinuses, orbits, and mastoids show no significant abnormality. Bones: No evidence of fracture or calvarial defect. Other: None. IMPRESSION: Normal head CT. RADIA
--- NOTE | 2019-04-16 21:36 | CT Report ---
Reason: chest pain, L. h/o PE Procedure Date: 04/16/2019 Accession Number: [id number] / [id number] Procedure: CT - ANGIO CHEST W/WO CPT Code: Final Report FULL RESULT: EXAM: CT ANGIOGRAM CHEST EXAM DATE: 04/16/2019 08:59 PM. CLINICAL HISTORY: Chest pain, L. h/o PE. COMPARISON: CHEST ANGIO 03/14/2019 10:17 PM. TECHNIQUE: Routine helical imaging was performed through the chest in the pulmonary arterial phase. IV Contrast: OPTI 320 100ML. Reconstructions: Coronal 3-D MIP reconstructions.Sagittal and coronal. In accordance with CT protocol optimization, one or more of the following dose reduction techniques were utilized for this exam: automated exposure control, adjustment of mA and/or KV based on patient size, or use of iterative reconstructive technique. FINDINGS: Pulmonary Arteries: Diagnostic quality: Adequate through the segmental arteries. No evidence for acute or chronic pulmonary emboli. RV/LV is within normal limits. There is no interventricular septal bowing. There is no reflux of contrast material in the IVC. Lungs/Pleura: There are no acute infiltrates. The pulmonary nodule in the superior segment of the left lower lobe is again noted and currently has a diameter measuring 7.7 mm and previously measured 7 mm x 8 mm. No change. The lungs are otherwise clear. Mediastinum: Normal. No cardiac enlargement or adenopathy. Thoracic Aorta: Unremarkable. Upper Abdomen: Unremarkable. Other: None. IMPRESSION: 1. No evidence for pulmonary emboli. 2. Pulmonary nodule superior segment left lower lobe unchanged. 3. No evidence for fractures of the thorax. RADIA
--- NOTE | 2019-04-16 21:37 | CT Report ---
Reason: fall, neck pain Procedure Date: 04/16/2019 Accession Number: [id number] / [id number] Procedure: CT - CERVICAL SPINE WO CPT Code: Final Report FULL RESULT: EXAM: CT CERVICAL SPINE WITHOUT CONTRAST. DATE: 04/16/2019 08:59 PM. HISTORY: Fall, neck pain. COMPARISONS: FACIAL BONES W/O 12/11/2018 8:50 PM. TECHNIQUE: Thin-section axial images were acquired of the cervical spine without contrast. Post-processing: Coronal and sagittal reformats. Other: None. In accordance with CT protocol optimization, one or more of the following dose reduction techniques were utilized for this exam: automated exposure control, adjustment of mA and/or KV based on patient size, or use of iterative reconstructive technique. FINDINGS: Alignment: No scoliosis or spondylolisthesis. Bones: No fracture or bone lesion. Interspace Levels/Facets: C1-C2: Unremarkable. C2-C3: Unremarkable. C3-C4: Unremarkable. C4-C5: Unremarkable. C5-C6: Unremarkable. C6-C7: Unremarkable. C7-T1: Unremarkable. Musculature: Normal. No fatty atrophy. Other: The paravertebral and prevertebral soft tissues are unremarkable. The lung apices are clear. IMPRESSION: Normal cervical spine CT. RAD[facility]
--- NOTE | 2019-04-16 21:39 | CT Report ---
Reason: diffuse abd pain Procedure Date: 04/16/2019 Accession Number: [id number] / [id number] Procedure: CT - Abdomen/Pelvis W CPT Code: Final Report FULL RESULT: EXAM: CT ABDOMEN AND PELVIS EXAM DATE: 04/16/2019 08:59 PM. CLINICAL HISTORY: Diffuse abd pain. COMPARISONS: CHEST ANGIO 03/14/2019 10:17 PM ABDOMEN/PELVIS W/ 06/12/2018 2:39 PM. TECHNIQUE: Routine helical CT imaging was performed through the abdomen and pelvis. IV contrast: OPTI 320 100ML. Enteric contrast: No. Reconstructions: Coronal and sagittal. In accordance with CT protocol optimization, one or more of the following dose reduction techniques were utilized for this exam: automated exposure control, adjustment of mA and/or KV based on patient size, or use of iterative reconstructive technique. FINDINGS: Lung Bases: Unremarkable. Liver: Normal. No masses. Gallbladder/Bile Ducts: Unremarkable. Spleen: Normal. Pancreas: Normal. Adrenal Glands: Normal. Kidneys: Normal. No masses or hydronephrosis. Peritoneal Cavity/Bowel: Normal. No free fluid, free air or adenopathy. No masses or acute inflammatory process. The appendix is well visualized and normal. Pelvic Organs: Normal. The bladder and visualized pelvic organs are within normal limits. Vasculature: No aneurysms or other significant abnormality. Bones: No significant abnormality. Other: None. IMPRESSION: Normal abdomen and pelvis CT. RAD[facility]
[2019-04-16] MEDS ORDERED: CYCLOBENZAPRINE 10 MG TABLET PO STA (21:51)
[2019-04-16] MEDS ORDERED: oxyCODONE 5 MG TABLET PO STA (21:51)
[2019-04-16 22:06] VITALS: BP 111/70
== END 2019-04-16 22:30 | disposition home or self-care (01) ==
LOC: EDUNIT# → ED 18:21
DX: R07.89 Other chest pain (principal); R55 Syncope and collapse; M54.2 Cervicalgia; W18.30XA Fall on same level, unspecified, initial encounter; Y92.008 Other place in unspecified non-institutional (private) residence as the place of occurrence of the external cause; R10.84 Generalized abdominal pain; R91.1 Solitary pulmonary nodule; Z86.711 Personal history of pulmonary embolism; Z87.891 Personal history of nicotine dependence
CPT/HCPCS: 36415; 70450; 71045; 71275; 72125; 74177; 80053; 83690; 84484; 85025; 93005; 96374; 96375; 99284; 99285; A0425; A0429; A9270; J1170; Q9967

== ENCOUNTER → 2019-04-16 | Outpatient (CLI) | payer SELFPAY | END | disposition critical access hospital (66) | LOC: EMS 18:08 | PROVIDERS: ATTEND Surgery | DX: R55 Syncope and collapse (principal); R07.9 Chest pain, unspecified; R46.89 Other symptoms and signs involving appearance and behavior | CPT/HCPCS: A0425; A0429 ==

== ENCOUNTER 2019-07-21 07:27 | Emergency (ER) | payer OTHER ==
[2019-07-21 07:37] VITALS: BP 152/108
[2019-07-21] MEDS: KETOROLAC 60 MG/2 ML VIAL IM STA (08:03)
--- NOTE | 2019-07-21 08:32 | XRAY Report ---
Reason: fall forearm, wrist and humerus pain Procedure Date: 07/21/2019 Accession Number: [id number] / [id number] Procedure: XR - Forearm LT CPT Code: Final Report FULL RESULT: EXAM: LEFT FOREARM RADIOGRAPHY EXAM DATE: 07/21/2019 08:23 AM. CLINICAL HISTORY: Fall forearm, wrist and humerus pain. COMPARISON: None. TECHNIQUE: 2 views. FINDINGS: Bones: Normal. No fractures or bone lesions. Joints: Normal. No effusions or subluxations in the visualized wrist or elbow joints. Soft Tissues: Subcutaneous edema and swelling at the forearm. IMPRESSION: 1. Subcutaneous edema and swelling at the forearm. 2. No acute fracture. [facility]
--- NOTE | 2019-07-21 08:33 | XRAY Report ---
Reason: fall forearm, wrist and humerus pain Procedure Date: 07/21/2019 Accession Number: [id number] / [id number] Procedure: XR - Humerus LT CPT Code: Final Report FULL RESULT: EXAM: LEFT HUMERUS RADIOGRAPHY EXAM DATE: 07/21/2019 08:23 AM. CLINICAL HISTORY: Fall forearm, wrist and humerus pain. COMPARISON: FOREARM LT 07/21/2019 7:56 AM. TECHNIQUE: 2 views. FINDINGS: Bones: Normal. No fractures or bone lesions. Joints: Normal. No effusions or subluxations in the visualized shoulder or elbow joints. Soft Tissues: Normal. No soft tissue swelling. IMPRESSION: Normal humerus radiography. [facility]
--- NOTE | 2019-07-21 08:48 | ED Physician Documentation ---
PD HPI UPPER EXT INJURY - Stated complaint Stated Complaint: ARM INJURY - Chief complaint Chief Complaint: Trauma Ext - History obtained from History obtained from: Patient - History of Present Illness Location: Left, Shoulder, Forearm, Wrist Type of injury: Fall Where injury occurred: Home Timing - onset: Enter time (0), Last night Timing - duration: Hours Timing - details: Abrupt onset, Still present Improved by: Rest, Ice, Immobilization Worsened by: Moving, Palpating Associated symptoms: No: Weakness, Numbness, Tingling Contributing factors: No: Anticoagulated Similar symptoms before: Diagnosis (sprain) Recently seen: Not recently seen - Additonal information Additional information: 38-year-old female was walking back into her house in the dark tripped and fell against the step entering her house landing on her left side against her left forearm. 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, Hysterectomy, Oophrectomy, Other HEENT: Tonsil/Adenoidectomy - Present Medications Home Medications: Ambulatory Orders Medication Instructions Recorded Confirmed Alprazolam [Xanax] 1 mg PO BID 10/29/14 04/16/19 Estrogens, Conjugated [Premarin] 0.9 mg PO DAILY 01/17/18 04/16/19 Ondansetron Odt [Zofran] 4 mg TL Q6H PRN #10 tablet 12/11/18 04/16/19 Albuterol Sulf [Ventolin Hfa 1 - 2 puffs INH Q4HR PRN #1 inhaler 02/11/19 04/16/19 Inhaler] Cyclobenzaprine [Flexeril] 10 mg PO TID PRN #12 tablet 03/15/19 04/16/19 Acetaminophen [Tylenol] 650 mg PO Q6H PRN 04/16/19 04/16/19 Aspirin/Acetaminophen/Caffeine 1 tab ORAL Q6HR PRN 04/16/19 04/16/19 [Excedrin Migraine Caplet] Cyclobenzaprine [Flexeril] 10 mg PO TID PRN #20 tablet 04/16/19 Duloxetine HCl 30 mg PO BID 04/16/19 04/16/19 Naproxen Sodium [Aleve] 220 mg PO BID PRN 04/16/19 04/16/19 Oxycodone HCl 5 - 10 mg PO Q6H PRN #9 tablet 04/16/19 lamoTRIgine [Subvenite] 150 mg PO BID 04/16/19 04/16/19 Hydrocodone/Acetaminophen 1 - 2 each PO Q6H PRN #14 tablet 07/21/19 [Hydrocodon-Acetaminophen 5-325] - Allergies Allergies/Adverse Reactions: Allergies Allergy/AdvReac Type Severity Reaction Status Date / Time sulfamethoxazole Allergy Severe Hives Verified 07/21/19 07:35 [From Bactrim] trimethoprim [From Bactrim] Allergy Severe Hives Verified 07/21/19 07:35 azithromycin [From Zithromax] Allergy Anaphylaxis Verified 07/21/19 07:35 - Social History Does the pt smoke?: No Smoking Status: Never smoker Does the pt drink ETOH?: Yes Does the pt have substance abuse?: No - Immunizations Immunizations are current?: Yes - POLST Patient has POLST: No POLST Status: Full Code PD ED PE NORMAL - Vitals Vital signs reviewed: Yes (Tachycardic and hypertensive) - General General: Alert and oriented X 3, No acute distress - HEENT HEENT: Atraumatic, PERRL, EOMI - Respiratory Respiratory: No respiratory distress - Derm Derm: Normal color, Warm and dry, No rash - Extremities Extremities: Other (There is marked swelling and ecchymosis to the left forearm both volar and dorsal. There is tenderness to the distal radius and a decreased range of motion to flexion extension at the wrist without pain to the anatomic snuffbox. Distal neurovascular components are intact. She is able to flex and extend supinate and pronate at the elbow with pain only in the wrist. 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 Subcutaneous edema and swelling at the forearm. 2. No acute fracture.), EMP read indepedently, See rad report humerus Radiology: Prelim report reviewed (Impression: Normal humerus radiography), EMP read indepedently, See rad report Procedures - Splint (location) forearm Splint applied by: Tech Type of splint: Fiberglass Other: Patient tolerated well, No complications, Neurovascular intact, Good alignment, Sling provided PD MEDICAL DECISION MAKING - ED course Complexity details: reviewed old records, reviewed results, re-evaluated patient, d/w patient ED course: 38-year-old female with a fall at her home has injured her left forearm with pain into her shoulder and a lot of swelling to the forearm pain mostly to the wrist and she has no evidence of fracture on x-ray of the forearm humerus. She is placed into a volar splint and a sling she is administered Toradol here in the emergency department we will provide a short course of pain medication. Departure - Departure Disposition: 01 Home, Self Care Clinical Impression: Forearm contusion Qualifiers: Encounter type: initial encounter Laterality: left Qualified Code(s): S50.12XA - Contusion of left forearm, initial encounter Left wrist sprain Qualifiers: Encounter type: initial encounter Qualified Code(s): S63.502A - Unspecified sprain of left wrist, initial encounter Instructions: ED Contusion Upper Ext, ED Sprain Wrist Follow-Up: [facility] [Provider Group] Prescriptions: Hydrocodone/Acetaminophen [Hydrocodon-Acetaminophen 5-325] 1 - 2 each PO Q6H PRN #14 tablet PRN Reason: pain Discharge Date/Time: 07/21/19 09:05
== END 2019-07-21 09:05 | disposition home or self-care (01) ==
LOC: ED 07:27
DX: S50.12XA Contusion of left forearm, initial encounter (principal); S63.502A Unspecified sprain of left wrist, initial encounter; W01.198A Fall on same level from slipping, tripping and stumbling with subsequent striking against other object, initial encounter; Y93.01 Activity, walking, marching and hiking; Y92.008 Other place in unspecified non-institutional (private) residence as the place of occurrence of the external cause
CPT/HCPCS: 29105; 99281

== ENCOUNTER 2019-07-30 03:47 | Emergency (ER) | payer OTHER ==
--- NOTE | 2019-07-30 03:55 | ED Physician Documentation ---
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 No: Weakness, Numbness, Tingling, Discolored Recently seen: Emergency Dept - Additonal information Additional information: T+R from this ED 07/20 for LUE injury; xrays of left humerus and left FA were negative for fracture or other acute findings at that time. She says she has an appointment with her doctor at [facility] scheduled for tomorrow for f/u. This morning, when walking in her house, patient tripped and fell on the LUE, causing sudden increase in pain and swelling, most pronounced in left wrist Review of Systems Musculoskeletal: reports: Extremity pain, Joint pain, Extremity swelling, Joint swelling. 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 : Chronic bladder infection, Kidney stones, Other HEENT: None Psych: Depression, Anxiety, Bipolar disorder, Panic attacks, ADD/ADHD, Post traumatic stress disorder Musculoskeletal: Fibromyalgia, Chronic back pain Derm: None - Past Surgical History Past Surgical History: Yes Ortho: Spine surgery, 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, Hysterectomy, Oophrectomy, Other HEENT: Tonsil/Adenoidectomy - Present Medications Home Medications: Ambulatory Orders Medication Instructions Recorded Confirmed Alprazolam [Xanax] 1 mg PO BID 10/29/14 07/30/19 Estrogens, Conjugated [Premarin] 0.9 mg PO DAILY 01/17/18 07/30/19 Ondansetron Odt [Zofran] 4 mg TL Q6H PRN #10 tablet 12/11/18 07/30/19 Albuterol Sulf [Ventolin Hfa 1 - 2 puffs INH Q4HR PRN #1 inhaler 02/11/19 07/30/19 Inhaler] Cyclobenzaprine [Flexeril] 10 mg PO TID PRN #12 tablet 03/15/19 07/30/19 Acetaminophen [Tylenol] 650 mg PO Q6H PRN 04/16/19 07/30/19 Aspirin/Acetaminophen/Caffeine 1 tab ORAL Q6HR PRN 04/16/19 07/30/19 [Excedrin Migraine Caplet] Cyclobenzaprine [Flexeril] 10 mg PO TID PRN #20 tablet 04/16/19 07/30/19 Duloxetine HCl 30 mg PO BID 04/16/19 07/30/19 Naproxen Sodium [Aleve] 220 mg PO BID PRN 04/16/19 07/30/19 Oxycodone HCl 5 - 10 mg PO Q6H PRN #9 tablet 04/16/19 07/30/19 lamoTRIgine [Subvenite] 150 mg PO BID 04/16/19 07/30/19 Hydrocodone/Acetaminophen 1 - 2 each PO Q6H PRN #14 tablet 07/21/19 07/30/19 [Hydrocodon-Acetaminophen 5-325] Oxycodone HCl/Acetaminophen 1 - 2 each PO Q6H PRN #14 tablet 07/30/19 [Percocet 5-325 mg Tablet] - Allergies Allergies/Adverse Reactions: Allergies Allergy/AdvReac Type Severity Reaction Status Date / Time sulfamethoxazole Allergy Severe Hives Verified 07/30/19 03:56 [From Bactrim] trimethoprim [From Bactrim] Allergy Severe Hives Verified 07/30/19 03:56 azithromycin [From Zithromax] Allergy Anaphylaxis Verified 07/30/19 03:56 - Social History Does the pt smoke?: No Smoking Status: Never smoker Does the pt drink ETOH?: Yes Does the pt have substance abuse?: No - Immunizations Immunizations are current?: Yes - POLST Patient has POLST: No POLST Status: Full Code PD ED PE NORMAL - Vitals Vital signs reviewed: Yes - General General: Alert and oriented X 3, No acute distress, Well developed/nourished - Derm Derm: Normal color - Neuro Neuro: No motor deficit, No sensory deficit (LTS intact left hand, fingers) PD ED PE EXPANDED - Extremities Extremities: Tenderness, Swelling, Bruising ISABELLA UE/Hands Visual: 1 - bruising, swelling (circumferential swelling, tenderness.), tenderness Results - Vitals Vitals: Vital Signs - 24 hr 07/30/19 07/30/19 03:51 04:53 Temperature 36.7 C Heart Rate 123 H 118 H Respiratory 18 18 Rate Blood Pressure 155/92 H O2 Saturation 98 95 Oxygen O2 Source Room air - Rads (name of study) left wrist xrays Radiology: Prelim report reviewed, See rad report PD MEDICAL DECISION MAKING - ED course Complexity details: reviewed old records, reviewed results, re-evaluated patient, considered differential, d/w patient ED course: significant swelling of left distal FA and wrist with tenderness and echymosis predominantly at left wrist. No evidence of compartment syndrome at this time (LTS intact at fingertips, normal color with brisk capillary refill, strong radial pulse) Departure - Departure Disposition: 01 Home, Self Care Clinical Impression: Left wrist sprain Condition: Good Instructions: ED Sprain Wrist Follow-Up: [facility] [Provider Group] - Tomorrow (As scheduled) Prescriptions: Oxycodone HCl/Acetaminophen [Percocet 5-325 mg Tablet] 1 - 2 each PO Q6H PRN #14 tablet PRN Reason: pain Discharge Date/Time: 07/30/19 05:13
[2019-07-30 03:57] VITALS: BP 155/92
[2019-07-30] MEDS ORDERED: HYDROmorphone 1 MG/ML CARPUJECT IM STA (04:08)
[2019-07-30] MEDS ORDERED: KETOROLAC 60 MG/2 ML VIAL IM STA (04:08)
--- NOTE | 2019-07-30 04:48 | XRAY Report ---
Reason: fall, reinjured left wrist Procedure Date: 07/30/2019 Accession Number: [id number] / [id number] Procedure: XR - Wrist 4 View LT CPT Code: Final Report FULL RESULT: EXAM: LEFT WRIST RADIOGRAPHY EXAM DATE: 07/30/2019 04:36 AM. CLINICAL HISTORY: Fall, reinjured left wrist. COMPARISON: FOREARM LT 07/21/2019 7:56 AM. TECHNIQUE: 3 views. FINDINGS: Bones: Normal. No fractures or bone lesions. Joints: Normal. No subluxations. Soft Tissues: Diffuse soft tissue swelling about the visualized forearm, wrist, and hand. IMPRESSION: Soft tissue swelling. No fracture or dislocation. RAD[facility]
== END 2019-07-30 05:13 | disposition home or self-care (01) ==
LOC: ED 03:47
DX: S63.502A Unspecified sprain of left wrist, initial encounter (principal); W01.0XXA Fall on same level from slipping, tripping and stumbling without subsequent striking against object, initial encounter; Y93.01 Activity, walking, marching and hiking; Y92.009 Unspecified place in unspecified non-institutional (private) residence as the place of occurrence of the external cause; Z86.711 Personal history of pulmonary embolism; Z79.82 Long term (current) use of aspirin
CPT/HCPCS: 73110; 96372; 99283; J1170

== ENCOUNTER 2019-10-07 13:59 | Emergency (ER) | payer OTHER ==
--- NOTE | 2019-10-07 14:51 | XRAY Report ---
PROCEDURE: Chest 1 View X-Ray INDICATIONS: Chest pain TECHNIQUE: One view of the chest was acquired. COMPARISON: CT chest 04/16/2019 FINDINGS: Surgical changes and devices: None. Lungs and pleura: No pleural effusions or pneumothorax. Lungs are clear. Mediastinum: Mediastinal contours appear normal. Heart size is normal. Bones and chest wall: No suspicious bony lesions. Overlying soft tissues appear unremarkable. IMPRESSION: No acute pulmonary process. Reviewed by: Dolly Larsen MD on 10/07/2019 2:50 PM PDT Approved by: Dolly Larsen MD on 10/07/2019 2:50 PM PDT Station ID: [id number]
[2019-10-07] MEDS ORDERED: HYDROmorphone 1 MG/ML CARPUJECT IVP STA ×2 (14:56→17:31)
[2019-10-07] MEDS ORDERED: SODIUM CHLORIDE 0.9% 1,000 ML IV STA ×2 (14:56→17:20)
--- NOTE | 2019-10-07 14:59 | ED Physician Documentation ---
History of Present Illness - Stated complaint Stated Complaint: LT SIDE ABD PX - Chief complaint Chief Complaint: Abd Pain - History obtained from History obtained from: Patient - History of Present Illness Timing: How many days ago (4) - Additonal information Additional information: 38-year-old female presents to the emergency department with chief complaint of 4 days intermittent left flank CVA tenderness that radiates to her chest. Patient reports that she has a sharp gurgling feeling in her posterior back. No history of similar. Patient drove to [place] therefore she presents to the emergency department. Patient reports that recently her urine has become cloudy but she has no dysuria urgency or frequency. However she does report a longstanding history of problems with her bladder and kidneys. At one point requiring a bladder mesh. Patient denies fevers feeling faint or lightheaded. She is noted to have a stable tachycardia here in the emergency department in the 140s.She denies any dyspnea. No unilateral leg swelling or recent travel. Review of Systems Constitutional: denies: Fever, Chills Cardiac: reports: Palpitations. denies: Chest pain / pressure, Pedal edema, Calf pain Respiratory: denies: Dyspnea, Cough GI: reports: Abdominal Pain. denies: Nausea, Vomiting, Constipation, Diarrhea, Hematemesis, Bloody / black stool : reports: Other (cloudy urine). denies: Dysuria, Frequency, Hesitancy Skin: denies: Rash, Lesions Musculoskeletal: reports: Back pain. denies: Neck pain, Extremity pain, Joint pain Neurologic: reports: Focal weakness. 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, Hysterectomy, Oophrectomy, Other HEENT: Tonsil/Adenoidectomy - Present Medications Home Medications: Ambulatory Orders Medication Instructions Recorded Confirmed Alprazolam [Xanax] 1 mg PO BID 10/29/14 07/30/19 Estrogens, Conjugated [Premarin] 0.9 mg PO DAILY 01/17/18 07/30/19 Ondansetron Odt [Zofran] 4 mg TL Q6H PRN #10 tablet 12/11/18 07/30/19 Albuterol Sulf [Ventolin Hfa 1 - 2 puffs INH Q4HR PRN #1 inhaler 02/11/19 07/30/19 Inhaler] Cyclobenzaprine [Flexeril] 10 mg PO TID PRN #12 tablet 03/15/19 07/30/19 Acetaminophen [Tylenol] 650 mg PO Q6H PRN 04/16/19 07/30/19 Aspirin/Acetaminophen/Caffeine 1 tab ORAL Q6HR PRN 04/16/19 07/30/19 [Excedrin Migraine Caplet] Cyclobenzaprine [Flexeril] 10 mg PO TID PRN #20 tablet 04/16/19 07/30/19 Duloxetine HCl 30 mg PO BID 04/16/19 07/30/19 Naproxen Sodium [Aleve] 220 mg PO BID PRN 04/16/19 07/30/19 Oxycodone HCl 5 - 10 mg PO Q6H PRN #9 tablet 04/16/19 07/30/19 lamoTRIgine [Subvenite] 150 mg PO BID 04/16/19 07/30/19 Hydrocodone/Acetaminophen 1 - 2 each PO Q6H PRN #14 tablet 07/21/19 07/30/19 [Hydrocodon-Acetaminophen 5-325] Oxycodone HCl/Acetaminophen 1 - 2 each PO Q6H PRN #14 tablet 07/30/19 [Percocet 5-325 mg Tablet] - Allergies Allergies/Adverse Reactions: Allergies Allergy/AdvReac Type Severity Reaction Status Date / Time sulfamethoxazole Allergy Severe Hives Verified 10/07/19 14:13 [From Bactrim] trimethoprim [From Bactrim] Allergy Severe Hives Verified 10/07/19 14:13 azithromycin [From Zithromax] Allergy Anaphylaxis Verified 10/07/19 14:13 - Social History Does the pt smoke?: No Smoking Status: Never smoker Does the pt drink ETOH?: Yes Does the pt have substance abuse?: No - Immunizations Immunizations are current?: Yes - POLST Patient has POLST: No POLST Status: Full Code PD ED PE NORMAL - General General: Alert and oriented X 3, No acute distress, Well developed/nourished - HEENT HEENT: EOMI, Ears normal - Cardiac Cardiac: RRR, No murmur, Strong equal pulses, Other (tachycardia) - Respiratory Respiratory: Clear bilaterally. No: No respiratory distress - Abdomen Abdomen: Soft, Non distended, Other (left flank tenderness. No CVA left tenderness). No: Normal bowel sounds, Non tender - Back Back: No CVA TTP, No spinal TTP - Derm Derm: Normal color, Warm and dry, No rash - Extremities Extremities: No deformity, No tenderness to palpate, No edema - Neuro Neuro: Alert and oriented X 3, No motor deficit, No sensory deficit Eye Opening: Spontaneous Motor: Obeys Commands Results - Vitals Vitals: Vital Signs - 24 hr 10/07/19 10/07/19 10/07/19 14:13 14:50 15:20 Temperature 36.5 C Heart Rate 140 H 150 H 136 H Respiratory 16 21 23 Rate Blood Pressure 150/100 H 127/100 H 131/114 H O2 Saturation 97 95 97 10/07/19 10/07/19 10/07/19 15:30 16:00 16:30 Temperature Heart Rate 130 H 119 H 123 H Respiratory 26 H 28 H 26 H Rate Blood Pressure 131/111 H 108/60 101/84 H O2 Saturation 96 100 94 10/07/19 10/07/19 10/07/19 17:00 17:30 18:00 Temperature Heart Rate 122 H 125 H 118 H Respiratory 16 28 H 21 Rate Blood Pressure 130/111 H 117/103 H 117/103 H O2 Saturation 94 96 98 10/07/19 10/07/19 18:16 18:17 Temperature 37.6 C H 37.6 C H Heart Rate 117 H Respiratory 24 Rate Blood Pressure 149/79 H O2 Saturation 97 Oxygen O2 Source Room air - Labs Labs: Laboratory Tests 10/07/19 10/07/19 10/07/19 14:43 14:43 14:43 WBC 8.0 RBC 4.80 Hgb 14.3 Hct 41.6 MCV 86.7 MCH 29.8 MCHC 34.4 RDW 11.9 L Plt Count 214 MPV 8.8 Neut # (Auto) 5.3 Lymph # (Auto) 2.3 Hendry # (Auto) 0.3 Eos # (Auto) 0.0 Baso # (Auto) 0.0 Absolute Nucleated RBC 0.00 Nucleated RBC % 0.0 Sodium 140 Potassium 4.1 Chloride 102 Carbon Dioxide 25 Anion Gap 13.0 BUN 14 Creatinine 0.6 Estimated GFR (MDRD) 112 Glucose 116 H Calcium 10.3 Total Bilirubin 0.4 AST 48 H ALT 60 Alkaline Phosphatase 63 Troponin I High Sens < 2.3 L Total Protein 8.3 H Albumin 4.8 Globulin 3.5 Albumin/Globulin Ratio 1.4 Lipase 39 Urine Color Urine Clarity Urine pH Ur Specific [place] Urine Protein Urine Glucose (UA) Urine Ketones Urine Occult Blood Urine Nitrite Urine Bilirubin Urine Urobilinogen Ur Leukocyte Esterase Ur Microscopic Review Urine Culture Comments Urine HCG, Qual 10/07/19 15:07 WBC RBC Hgb Hct MCV MCH MCHC RDW Plt Count MPV Neut # (Auto) Lymph # (Auto) Hendry # (Auto) Eos # (Auto) Baso # (Auto) Absolute Nucleated RBC Nucleated RBC % Sodium Potassium Chloride Carbon Dioxide Anion Gap BUN Creatinine Estimated GFR (MDRD) Glucose Calcium Total Bilirubin AST ALT Alkaline Phosphatase Troponin I High Sens Total Protein Albumin Globulin Albumin/Globulin Ratio Lipase Urine Color YELLOW Urine Clarity CLEAR Urine pH 7.5 Ur Specific [place] 1.015 Urine Protein NEGATIVE Urine Glucose (UA) NEGATIVE Urine Ketones NEGATIVE Urine Occult Blood NEGATIVE Urine Nitrite NEGATIVE Urine Bilirubin NEGATIVE Urine Urobilinogen 0.2 (NORMAL) Ur Leukocyte Esterase NEGATIVE Ur Microscopic Review NOT INDICATED Urine Culture Comments NOT INDICATED Urine HCG, Qual NEGATIVE - Rads (name of study) cxr Radiology: Final report received (No acute cardiopulmonary process) CT abd Radiology: Final report received (No renal stone or hydronephrosis. Normal- appearing bilateral uterus and urinary obstruction normal appendix. No free fluid or air.) PD MEDICAL DECISION MAKING - ED course Complexity details: reviewed results, d/w patient ED course: 38-year-old female presents to the emergency department with chief complaint of left back left flank pain that has been ongoing for about 4 days. - Labs reviewed in full. She has no leukocytosis. No worrisome electrolyte abnormalities. Urine shows no s/s of infection. - CT of the abdomen and pelvis is without any significant focal findings. Specifically no findings of kidney stones, normal appendix. No perinephric abscess - Patient noted to be fairly tachycardic on initial presentation to the emergency department with a heart rate in the 140s. Her EKG was sinus tach and nonischemic. Her troponin was negative. Her heart rate improved to the mid 110s during the course of her ER evaluation. She received 2 L of IV fluid as well as 2 mg of Dilaudid and 5 mg of Valium for what she feels were muscle spasms in the back. - Patient reports that she is going to call her base physician tomorrow to arrange follow-up of this pain. At this time the etiology is unclear though I favor back spasms. - I reviewed all these results with the patient. She elects to be discharged home at this time. I offered a prescription for muscle relaxer but she declined stating that she has some at home. Departure - Departure Disposition: , Self Care Clinical Impression: Back pain Qualifiers: Back pain location: back pain in unspecified location Chronicity: acute Back pain laterality: left Qualified Code(s): M54.9 - Dorsalgia, unspecified Instructions: Abdominal Pain, ED Pain Control Ch Comments: Your labs today are essentially normal. You have no infection in your urine. The CT scan did not show any concerns with your kidneys, your ovaries, your appendix or your uterus. I am glad that the pain is better with the muscle relaxer and pain medicine. You may continue to use your muscle relaxers at home. Please follow this emergency department visit closely with your primary care provider. If you develop worsening pain, have uncontrolled vomiting, noticed blood in your urine or develop fever then please return for a second evaluation
[2019-10-07 15:03] LABS: BASOPHILS % (AUTO) 0.3 %; EOSINOPHILS % (AUTO) 0.3 %; HGB - HEMOGLOBIN 14.3 g/dL (12.0-16.0); LYMPHOCYTES # (AUTO) 2.3 10^3/uL (1.5-3.5); LYMPHOCYTES % (AUTO) 28.4 %; MEAN CORPUSCULAR HEMOGLOBIN 29.8 pg (27.0-31.0); MEAN CORPUSCULAR HGB CONC 34.4 g/dL (32.0-36.0); MEAN CORPUSCULAR VOLUME 86.7 fL (81.0-99.0); MEAN PLATELET VOLUME 8.8 fL (7.9-10.8); MONOCYTES # (AUTO) 0.3 10^3/uL (0.0-1.0); MONOCYTES % (AUTO) 4.3 %; NEUTROPHILS # (AUTO) 5.3 10^3/uL (1.5-6.6); NEUTROPHILS % (AUTO) 65.9 %; PLT - PLATELET COUNT 214 10^3/uL (130-450); RED CELL DISTRIBUTION WIDTH 11.9 % (12.0-15.0)
[2019-10-07 15:17] LABS: ALBUMIN 4.8 g/dL (3.2-5.5); ALBUMIN/GLOBULIN RATIO 1.4 (1.0-2.2); BILIRUBIN,TOTAL 0.4 mg/dL (0.2-1.0); CALCIUM 10.3 mg/dL (8.5-10.3); CREATININE 0.6 mg/dL (0.4-1.0); TOTAL PROTEIN 8.3 g/dL (6.7-8.2)
[2019-10-07 15:25] LABS: BILIRUBIN,URINE NEGATIVE (NEGATIVE); GLUCOSE, URINE (UA) NEGATIVE (NEGATIVE); KETONES,URINE (UA) NEGATIVE (NEGATIVE); LEUKOCYTE ESTERASE, URINE NEGATIVE (NEGATIVE); NITRITE,URINE NEGATIVE (NEGATIVE); OCCULT BLOOD,URINE NEGATIVE (NEGATIVE); PH,URINE 7.5 PH (5.0-7.5); PROTEIN,URINE NEGATIVE (NEGATIVE); UROBILINOGEN,URINE 0.2 (NORMAL) E.U./dL (NORMAL)
[2019-10-07 15:34] LABS: CLARITY,URINE CLEAR (CLEAR)
[2019-10-07 15:35] LABS: HCG UR QUAL NEGATIVE
[2019-10-07] MEDS ORDERED: diazePAM INJ 5 MG/ML SYRINGE IVP STA ×2 (15:54→17:21)
[2019-10-07] MEDS ORDERED: IOVERSOL 320 100 ML VIAL IVP ONE ×2 (16:06→16:54)
--- NOTE | 2019-10-07 17:08 | CT Report ---
PROCEDURE: Abdomen/Pelvis W INDICATIONS: left flank pain CONTRAST: IV CONTRAST: Optiray 320 ml: 100 PO CONTRAST: *NO PO CONTRAST TECHNIQUE: After the administration of oral and intravenous contrast, 5 mm thick sections acquired from the diap hragms to the symphysis. 5 mm thick coronal and sagittal reformats were acquired. For radiation dos e reduction, the following was used: automated exposure control, adjustment of mA and/or kV accordin g to patient size. COMPARISON: 04/16/2019. FINDINGS: Image quality: Excellent. ABDOMEN: Lung bases: Left basilar dependent atelectasis/scarring is seen.. Heart size is normal. Solid organs: Liver and spleen are normal in size and enhancement. Gallbladder is within normal k[place] its Biliary system is non dilated. Pancreas enhances normally. No adrenal nodules. Kidneys demons trate normal size and enhancement, without hydronephrosis. Peritoneum and bowel: Bowel loops demonstrate normal wall thickness and caliber. No free fluid or a ir. Appendix is visualized and is within normal limits. Nodes and vessels: No retroperitoneal or mesenteric adenopathy by size criteria. Aorta and inferior vena cava are normal in size. Miscellaneous: No ventral hernias. PELVIS: Genitourinary: Bladder wall thickness is normal. Miscellaneous: No inguinal hernias or adenopathy. A catheter is seen in posterior right lower back soft tissue with its tip seen along the right presacral soft tissue. Bones: No suspicious bony lesions. No vertebral body compression fractures. IMPRESSION: 1. No renal stone or hydronephrosis. Normal-appearing bilateral ureters and urinary bladder. 2. No bowel obstruction. Normal appendix. No free fluid or free air. 3. Mild left basilar dependent atelectasis/scarring. Reviewed by: Bryce Boateng MD on 10/07/2019 5:06 PM PDT Approved by: Bryce Boateng MD on 10/07/2019 5:06 PM PDT Station ID: [id number]
[2019-10-07 18:53] VITALS: BP 126/78
== END 2019-10-07 19:01 | disposition home or self-care (01) ==
LOC: ED 13:59
DX: M54.9 Dorsalgia, unspecified (principal); R10.9 Unspecified abdominal pain; R00.0 Tachycardia, unspecified
CPT/HCPCS: 36415; 71045; 74177; 80053; 81003; 81025; 83690; 84484; 85025; 93005; 96361; 96374; 96375; 96376; 99284; J1170; Q9967; 81001; 87086

== ENCOUNTER 2019-12-11 18:27 | Emergency (ER) | payer OTHER ==
[2019-12-11] MEDS ORDERED: SODIUM CHLORIDE 0.9% 1,000 ML IV STA (19:09)
--- NOTE | 2019-12-11 19:18 | ED Physician Documentation ---
History of Present Illness - Stated complaint Stated Complaint: GLF, HEAD PX - Chief complaint Chief Complaint: Trauma Hd/Nk - History obtained from History obtained from: Patient, Family - History of Present Illness Timing: Prior to arrival - Additonal information Additional information: 39-year-old female presents the emergency department for evaluation of facial trauma after she fell at home this evening. She reports that she was feeling lightheaded and dizzy and was going to go to the bathroom but tripped on the carpet and struck the right side of her head on the toilet. She does report that she lost consciousness but unsure for how long. On initial exam in the room the patient has a stutter that she reports to me as "one of her episodes." She states that sometimes she has stroke-like symptoms but it is not a stroke. She reports that [employer] has been working this up and has recently ordered outpatient imaging of some type but patient has been unable to get this scheduled. Since the fall this evening patient reports that she has bilateral diplopia and her stutter is worse than normal. She feels nauseated but denies abdominal pain. No vomiting. She does have an abrasion on the right side of her face. She is noted to be tachycardic and often is on presentation to the ED This ED visit is also Preceded by a fall 4 days ago in which she fell off a stepstool and struck the right side of her head in her closet. Her at bedside reports that on Sunday she was acting very confused. She has been nauseated since that initial fall. Patient reports to me that she is always been clumsy and falls a lot. Patient denies illicit drug use. Very rare alcohol use. Non-smoker. Meds; omeprazole, Lamictal, duloxetine, Xanax, MVI, muscle relaxer Review of Systems Constitutional: reports: Reviewed and negative Eyes: reports: Reviewed and negative Ears: reports: Reviewed and negative. denies: Loss of hearing, Drainage/discharge, Tinnitus/ringing Nose: reports: Reviewed and negative Throat: reports: Reviewed and negative Cardiac: denies: Chest pain / pressure, Palpitations, Pedal edema, Calf pain Respiratory: reports: Reviewed and negative GI: denies: Abdominal Pain, Abdominal Swelling, Nausea, Vomiting : reports: Reviewed and negative Skin: reports: Abrasion (s) (right cheek/forehead) Musculoskeletal: reports: Neck pain. denies: Back pain, Extremity pain, Joint pain Neurologic: reports: Generalized weakness, Difficulty speaking (stutter), Syncope, Headache, Head injury, LOC. 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 : Chronic bladder infection, Kidney stones, Other HEENT: None Psych: Depression, Anxiety, Bipolar disorder, Panic attacks, ADD/ADHD, Post traumatic stress disorder Musculoskeletal: Fibromyalgia, Chronic back pain Derm: None - Past Surgical History Past Surgical History: Yes Ortho: Spine surgery, 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, Hysterectomy, Oophrectomy, Other HEENT: Tonsil/Adenoidectomy - Present Medications Home Medications: Ambulatory Orders Medication Instructions Recorded Confirmed Alprazolam [Xanax] 1 mg PO BID 10/29/14 07/30/19 Estrogens, Conjugated [Premarin] 0.9 mg PO DAILY 01/17/18 07/30/19 Ondansetron Odt [Zofran] 4 mg TL Q6H PRN #10 tablet 12/11/18 07/30/19 Albuterol Sulf [Ventolin Hfa 1 - 2 puffs INH Q4HR PRN #1 inhaler 02/11/19 07/30/19 Inhaler] Cyclobenzaprine [Flexeril] 10 mg PO TID PRN #12 tablet 03/15/19 07/30/19 Acetaminophen [Tylenol] 650 mg PO Q6H PRN 04/16/19 07/30/19 Aspirin/Acetaminophen/Caffeine 1 tab ORAL Q6HR PRN 04/16/19 07/30/19 [Excedrin Migraine Caplet] Cyclobenzaprine [Flexeril] 10 mg PO TID PRN #20 tablet 04/16/19 07/30/19 Duloxetine HCl 30 mg PO BID 04/16/19 07/30/19 Naproxen Sodium [Aleve] 220 mg PO BID PRN 04/16/19 07/30/19 Oxycodone HCl 5 - 10 mg PO Q6H PRN #9 tablet 04/16/19 07/30/19 lamoTRIgine [Subvenite] 150 mg PO BID 04/16/19 07/30/19 Hydrocodone/Acetaminophen 1 - 2 each PO Q6H PRN #14 tablet 07/21/19 07/30/19 [Hydrocodon-Acetaminophen 5-325] Oxycodone HCl/Acetaminophen 1 - 2 each PO Q6H PRN #14 tablet 07/30/19 [Percocet 5-325 mg Tablet] Prochlorperazine Maleate 10 mg PO TID PRN #10 tab 12/11/19 [Compazine] - Allergies Allergies/Adverse Reactions: Allergies Allergy/AdvReac Type Severity Reaction Status Date / Time sulfamethoxazole Allergy Severe Hives Verified 12/11/19 18:35 [From Bactrim] trimethoprim [From Bactrim] Allergy Severe Hives Verified 12/11/19 18:35 azithromycin [From Zithromax] Allergy Anaphylaxis Verified 12/11/19 18:35 - Social History Does the pt smoke?: No Smoking Status: Never smoker Does the pt drink ETOH?: Yes Does the pt have substance abuse?: No - Immunizations Immunizations are current?: Yes - POLST Patient has POLST: No POLST Status: Full Code PD ED PE EXPANDED - General General: Alert, Other (obese) - HEENT HEENT: Head injury (abrasion right cheek/forehead), PERRL, EOMI, Ears normal, Pharynx normal. No: Pupils unequal, Gaze palsy - Eyes Eyes: PERRL - Neck Neck: Supple w/out meningeal sx, Soft tissue TTP. No: Adenopathy - Cardiac Cardiac: Tachy, Radial strong equal, Femoral strong equal, Pedal strong equal, Cap refill < 2 sec. No: Murmur Present - Respiratory Respiratory: Clear to ausultation vernon. No: Distress, Labored, Stridor - Abdomen Abdomen: Normal Bowel sounds. No: Tender to palpation, Rebound, Guarding - Derm Derm: Normal color, Warm and dry, Bruising (right face) - Extremities Extremities: Normal - Neuro Neuro: Alert and Oriented X 3, CNII-XII intact. No: Nystagmus, Cerebellar nl, Normal finger nose, Normal speech (stutter) - GCS Eye Opening: Spontaneous Motor: Obeys Commands Verbal: Oriented Total: 15 Results - Vitals Vitals: Vital Signs - 24 hr 12/11/19 12/11/19 12/11/19 18:31 18:41 20:35 Temperature 36.6 C 36.5 C Heart Rate 129 H 120 H 120 H Respiratory 17 16 18 Rate Blood Pressure 158/109 H 153/92 H 151/88 H O2 Saturation 96 97 100 12/11/19 20:59 Temperature Heart Rate 130 H Respiratory 18 Rate Blood Pressure 154/100 H O2 Saturation 95 Oxygen O2 Source Room air - EKG (time done) 1849 Rate: Rate (enter#) (125) Rhythm: Sinus tachycardia [place]: Normal Intervals: Normal CT QRS: Normal Ischemia: Non specific changes Compare to prior EKG: Unchanged from prior EKG Computer interpretation: Agree with computer - Labs Labs: Laboratory Tests 12/11/19 12/11/19 12/11/19 19:20 19:51 19:51 WBC 6.7 RBC 4.88 Hgb 14.6 Hct 42.3 MCV 86.7 MCH 29.9 MCHC 34.5 RDW 12.2 Plt Count 187 MPV 8.9 Neut # (Auto) 3.7 Lymph # (Auto) 2.5 Dare # (Auto) 0.4 Eos # (Auto) 0.1 Baso # (Auto) 0.0 Absolute Nucleated RBC 0.00 Nucleated RBC % 0.0 Sodium 137 Potassium 4.1 Chloride 101 Carbon Dioxide 26 Anion Gap 10.0 BUN 9 Creatinine 0.5 Estimated GFR (MDRD) 138 Glucose 114 H Calcium 10.0 Total Bilirubin 0.6 AST 50 H ALT 75 H Alkaline Phosphatase 54 Troponin I High Sens Total Protein 7.4 Albumin 4.5 Globulin 2.9 Albumin/Globulin Ratio 1.6 Lipase 30 Serum HCG, Qual Urine Color YELLOW Urine Clarity CLEAR Urine pH 7.5 Ur Specific [place] 1.020 Urine Protein NEGATIVE Urine Glucose (UA) 100 H Urine Ketones NEGATIVE Urine Occult Blood NEGATIVE Urine Nitrite NEGATIVE Urine Bilirubin NEGATIVE Urine Urobilinogen 0.2 (NORMAL) Ur Leukocyte Esterase NEGATIVE Ur Microscopic Review NOT INDICATED Urine Culture Comments NOT INDICATED Urine HCG, Qual NEGATIVE 12/11/19 12/11/19 19:51 19:51 WBC RBC Hgb Hct MCV MCH MCHC RDW Plt Count MPV Neut # (Auto) Lymph # (Auto) Dare # (Auto) Eos # (Auto) Baso # (Auto) Absolute Nucleated RBC Nucleated RBC % Sodium Potassium Chloride Carbon Dioxide Anion Gap BUN Creatinine Estimated GFR (MDRD) Glucose Calcium Total Bilirubin AST ALT Alkaline Phosphatase Troponin I High Sens < 2.3 L Total Protein Albumin Globulin Albumin/Globulin Ratio Lipase Serum HCG, Qual NEGATIVE Urine Color Urine Clarity Urine pH Ur Specific [place] Urine Protein Urine Glucose (UA) Urine Ketones Urine Occult Blood Urine Nitrite Urine Bilirubin Urine Urobilinogen Ur Leukocyte Esterase Ur Microscopic Review Urine Culture Comments Urine HCG, Qual - Rads (name of study) CXR Radiology: Final report received (no acute cardiopulmonary process) CTA head Radiology: Final report received (No acute disease, no signs of aneurysm, embolus or hemorrhage. No acute or subacute stroke identified.) CTA neck Radiology: Final report received (No acute disease, no sign of arterial stenosis, aneurysm, dissection or occlusion is found. The posterior fossa appears normal, source of reported abnormal cerebellar symptoms is not found.) PD MEDICAL DECISION MAKING - ED course Complexity details: reviewed old records, reviewed results, re-evaluated patient, considered differential, d/w patient, d/w family ED course: 39-year-old female presents to the emergency department for evaluation of right- sided facial abrasion nausea after a fall this evening. She did have a fall 4 days ago in which she also struck the right side of her head. Patient and her tell me that she has a history of frequent falls and at times she develops a stutter. She has been seen by her primary through [facility] and they were ordering outpatient imaging. On exam here in the emergency department she has no focal neuro deficits but I do note the stutter as well as an abnormal cerebellar exam in which she could not complete the finger-nose exam. Patient is tachycardic here in the emergency department but appears well- hydrated. She is frequently tachycardic on presentation to the emergency department. Tachycardia improved with IVF in the ED. CT angios of the head and neck were essentially unremarkable with no sick Ficken findings concerning for stroke or embolus. No skull fractures were identified. Given that this young lady has had 2 falls this week in which she struck the right side of her headAnd mild headache may be explained by postconcussive syndrome. Her nausea improved with Compazine in the emergency department. I will write a prescription for limited amount to be taken at home. I will also recommend plenty of fluids rest and sleep. This younger lady has multiple ED visits for frequent and recurrent falls. She also reports a syndrome in which she becomes extremely stressed begins to stutter and has a stroke-like symptoms. She states that she has been seen by a neurologist for this and told that she is not having strokes but the symptoms are induced by stress. However that does not seem to explain her recurrent falls. At this time no emergent medical condition is identified. I have discussed this visit with the patient and her at length. She will continue to follow-up with her primary care provider. Further imaging may include MRI or MRA of her brain. She may also wish to discuss the recurrent falls and her concerns about lack of balance with her neurologist. Departure - Departure Disposition: 01 Home, Self Care Clinical Impression: Recurrent falls, Stuttering Contusion of face Qualifiers: Encounter type: initial encounter Qualified Code(s): S00.83XA - Contusion of other part of head, initial encounter Concussion Qualifiers: Encounter type: initial encounter Loss of consciousness presence/duration: with LOC of 30 min or less Qualified Code(s): S06.0X1A - Concussion with loss of consciousness of 30 minutes or less, initial encounter Condition: Stable Prescriptions: Prochlorperazine Maleate [Compazine] 10 mg PO TID PRN #10 tab PRN Reason: Nausea / Vomiting Comments: Leatha your labs, EKG, chest x-ray and cerebral angiograms today were all essentially unremarkable. I do feel that you likely have a concussion after falling twice this week. I recommend that you get plenty of rest drink lots of fluids. Please avoid watching too much television, looking at a computer screen or playing video games. I have prescribed Compazine to help with your nausea. Because you have a history of so many falls I think it is important that you discuss this with your primary care doctor or your neurologist. I have given you copies today of the results of your cerebral angiogram. If your other providers feel that it is warranted they may want to consider MRI imaging of your brain. If at any point you feel that your symptoms are worsening, you have uncontrolled vomiting difficulty breathing then please return to the emergency department.
[2019-12-11] MEDS ORDERED: IOVERSOL 320 100 ML VIAL IVP ONE ×2 (19:19→20:23)
--- NOTE | 2019-12-11 19:27 | XRAY Report ---
PROCEDURE: Chest 1 View X-Ray INDICATIONS: Chest Pain TECHNIQUE: One view of the chest was acquired. COMPARISON: Prior chest single view 10/07/2019. FINDINGS: Surgical changes and devices: None. Lungs and pleura: No pleural effusions or pneumothorax. Lungs are clear. Mediastinum: Mediastinal contours appear normal. Heart size is normal. Bones and chest wall: No suspicious bony lesions. Overlying soft tissues appear unremarkable. IMPRESSION: No definite acute disease, source of chest pain is not found. Light or film technique is utilized for the current study and the interstitial radiodensity is increased artifactually. Pulmonary edema is n ot suspected. Reviewed by: Grant Edwards MD on 12/11/2019 7:26 PM PDT Approved by: Grant Edwards MD on 12/11/2019 7:26 PM PDT Station ID: [id number]
[2019-12-11 19:28] LABS: BILIRUBIN,URINE NEGATIVE (NEGATIVE); CLARITY,URINE CLEAR (CLEAR); GLUCOSE, URINE (UA) 100 mg/dL (NEGATIVE); KETONES,URINE (UA) NEGATIVE (NEGATIVE); LEUKOCYTE ESTERASE, URINE NEGATIVE (NEGATIVE); NITRITE,URINE NEGATIVE (NEGATIVE); OCCULT BLOOD,URINE NEGATIVE (NEGATIVE); PH,URINE 7.5 PH (5.0-7.5); PROTEIN,URINE NEGATIVE (NEGATIVE); UROBILINOGEN,URINE 0.2 (NORMAL) E.U./dL (NORMAL)
[2019-12-11 19:29] LABS: HCG UR QUAL NEGATIVE
[2019-12-11 20:00] LABS: BASOPHILS % (AUTO) 0.1 %; EOSINOPHILS # (AUTO) 0.1 10^3/uL (0.0-0.7); EOSINOPHILS % (AUTO) 1.5 %; HGB - HEMOGLOBIN 14.6 g/dL (12.0-16.0); LYMPHOCYTES # (AUTO) 2.5 10^3/uL (1.5-3.5); LYMPHOCYTES % (AUTO) 36.9 %; MEAN CORPUSCULAR HEMOGLOBIN 29.9 pg (27.0-31.0); MEAN CORPUSCULAR HGB CONC 34.5 g/dL (32.0-36.0); MEAN CORPUSCULAR VOLUME 86.7 fL (81.0-99.0); MEAN PLATELET VOLUME 8.9 fL (7.9-10.8); MONOCYTES # (AUTO) 0.4 10^3/uL (0.0-1.0); MONOCYTES % (AUTO) 6.1 %; NEUTROPHILS # (AUTO) 3.7 10^3/uL (1.5-6.6); NEUTROPHILS % (AUTO) 54.4 %; PLT - PLATELET COUNT 187 10^3/uL (130-450); RED BLOOD COUNT 4.88 10^6/uL (4.20-5.40); RED CELL DISTRIBUTION WIDTH 12.2 % (12.0-15.0); WHITE BLOOD COUNT 6.7 x10^3/uL (4.8-10.8)
[2019-12-11 20:12] LABS: ALBUMIN 4.5 g/dL (3.2-5.5); ALBUMIN/GLOBULIN RATIO 1.6 (1.0-2.2); BILIRUBIN,TOTAL 0.6 mg/dL (0.2-1.0); CREATININE 0.5 mg/dL (0.4-1.0); TOTAL PROTEIN 7.4 g/dL (6.7-8.2)
[2019-12-11] MEDS ORDERED: ONDANSETRON 4 MG/2 ML VIAL IVP STA (20:19)
[2019-12-11] MEDS ORDERED: HYDROmorphone 1 MG/ML CARPUJECT IVP STA (20:19)
[2019-12-11 20:21] LABS: HCG,QUALITATIVE BLOOD NEGATIVE
[2019-12-11] MEDS ORDERED: PROCHLORPERAZINE 10 MG/2 ML VIAL IVP STA (20:44)
--- NOTE | 2019-12-11 21:02 | CT Report ---
PROCEDURE: ANGIO HEAD W/WO INDICATIONS: abnormal finger nose, multiple falls, CONTRAST: IV CONTRAST: Optiray 320 ml: 80 PO CONTRAST: *NO PO CONTRAST TECHNIQUE: Precontrast 4.5 mm thick angled axial sections acquired from the foramen magnum to the vertex. Afte r the administration of intravenous contrast, 1 mm thick sections acquired through the [place] of [place] is. Postcontrast 4.5 mm thick sections then re-acquired from the foramen magnum to the vertex. 3-di mensional rbtgnev-rqozzqzoq-emhkonbkol (MIP) and/or volume rendering reformats were acquired of the c entral intracranial vasculature. For radiation dose reduction, the following was used: automated ex posure control, adjustment of mA and/or kV according to patient size. COMPARISON: FINDINGS: Image quality: Excellent. Anterior circulation: Intracranial internal carotid arteries are normal in size and flow. The flow within the paired anterior cerebral arteries is normal and symmetric. The flow within the middle cer ebral arteries is normal and symmetric. The anterior communicating artery is seen. No aneurysms are seen. Posterior circulation: Visualized portions of the vertebral arteries demonstrate normal caliber, and join to form a normal appearing basilar artery. Flow within the posterior cerebral arteries is norm al and symmetric. No aneurysms are seen. CSF spaces: Ventricles are normal in size and shape. Basal cisterns are patent. No extra-axial flu id collections. Brain: No midline shift. No intracranial bleeds or masses. [place]-white matter interface appears int act. Skull and face: Calvarium and facial bones appear intact, without suspicious lesions. Sinuses: Visualized sinuses and mastoids are clear. IMPRESSION: No acute disease, no sign of aneurysm, embolus or hemorrhage. No acute or subacute stroke identified. Reviewed by: Grant Edwards MD on 12/11/2019 9:00 PM PDT Approved by: Grant Edwards MD on 12/11/2019 9:00 PM PDT Station ID: [id number]
--- NOTE | 2019-12-11 21:05 | CT Report ---
PROCEDURE: ANGIO NECK W INDICATIONS: stutter, abnormal cerebellar exam CONTRAST: IV CONTRAST: Optiray 320 ml: 80 PO CONTRAST: *NO PO CONTRAST TECHNIQUE: After the administration of intravenous contrast, 1.5 mm axial sections acquired from the aortic arch to the [place] of [place]. Coronal 3-D maximum intensity projection (MIP) and/or volume rendering ref ormats were then performed. For radiation dose reduction, the following was used: automated exposur e control, adjustment of mA and/or kV according to patient size. COMPARISON: None. FINDINGS: Image quality: Excellent. Carotid system: The great vessels demonstrate a conventional anatomy as they arise from the aortic a [facility]. The origins of the common carotid arteries appear patent. The common carotid arteries demonstr ate normal calibers and courses. The bifurcation regions appear normal bilaterally. The internal ca rotid arteries demonstrate normal caliber and course. Posterior circulation: The origins of the vertebral arteries appear patent. The more superior porti ons of the vertebral arteries demonstrate normal course and caliber. They join to form a normal appe aring basilar artery. Soft tissues: Visualized neck soft tissues demonstrate no suspicious abnormalities. The thyroid gla nd is normal in size. Bones: No suspicious bony lesions. Visualized cervical spine appears normally aligned. IMPRESSION: No acute disease, no sign of arterial stenosis, aneurysm, dissection, or occlusion is found. The post erior fossa appears normal, source of reported abnormal cerebellar symptoms is not found. The estimate of stenosis included in the report of the imaging study was calculated using the NASCET method Reviewed by: Grant Edwards MD on 12/11/2019 9:04 PM PDT Approved by: Grant Edwards MD on 12/11/2019 9:04 PM PDT Station ID: [id number]
[2019-12-11 21:41] VITALS: BP 148/89
== END 2019-12-11 21:44 | disposition home or self-care (01) ==
LOC: ED 18:27
DX: S06.0X1A Concussion with loss of consciousness of 30 minutes or less, initial encounter (principal); S00.81XA Abrasion of other part of head, initial encounter; R40.2412 Glasgow coma scale score 13-15, at arrival to emergency department; W01.198A Fall on same level from slipping, tripping and stumbling with subsequent striking against other object, initial encounter; Y93.01 Activity, walking, marching and hiking; Y92.009 Unspecified place in unspecified non-institutional (private) residence as the place of occurrence of the external cause; F80.81 Childhood onset fluency disorder; R00.0 Tachycardia, unspecified; Z91.81 History of falling
CPT/HCPCS: 36415; 70496; 70498; 71045; 80053; 81003; 81025; 83690; 84484; 84703; 85025; 93005; 96374; 96375; 99284; J1170; Q9967; 81001; 87086

== ENCOUNTER 2019-12-24 02:19 | Emergency (ER) | payer OTHER ==
--- NOTE | 2019-12-24 02:24 | ED Physician Documentation ---
History of Present Illness - Stated complaint Stated Complaint: ABD LAC - History obtained from History obtained from: Patient - Additonal information Additional information: Patient is a 39-year-old female with a history of self cutting intentionally self cut her abdomen today. She denies any homicidal or suicidal thoughts but reports that she has therapeutic sensation whenever she self cuts. Denies taking any anticoagulation denies any salt denies any homicidal or suicidal thoughts denies any auditory visual hallucinations. Review of Systems Constitutional: reports: Reviewed and negative Eyes: reports: Reviewed and negative Ears: reports: Reviewed and negative Nose: reports: Reviewed and negative Throat: reports: Reviewed and negative Cardiac: reports: Reviewed and negative Respiratory: reports: Reviewed and negative GI: reports: Reviewed and negative : reports: Reviewed and negative Skin: reports: Laceration (s) Musculoskeletal: reports: Reviewed and negative Neurologic: reports: Reviewed and negative Psychiatric: reports: Depressed, Anxiety. 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 : Chronic bladder infection, Kidney stones, Other HEENT: None Psych: Depression, Anxiety, Bipolar disorder, Panic attacks, ADD/ADHD, Post traumatic stress disorder Musculoskeletal: Fibromyalgia, Chronic back pain Derm: None - Past Surgical History Past Surgical History: Yes Ortho: Spine surgery, Other /RUG INSPECTOR HELPER: section, Hysterectomy, Oophrectomy, Other HEENT: Tonsil/Adenoidectomy - Present Medications Home Medications: Ambulatory Orders Medication Instructions Recorded Confirmed Alprazolam [Xanax] 1 mg PO BID 10/29/14 07/30/19 Estrogens, Conjugated [Premarin] 0.9 mg PO DAILY 01/17/18 07/30/19 Ondansetron Odt [Zofran] 4 mg TL Q6H PRN #10 tablet 12/11/18 07/30/19 Albuterol Sulf [Ventolin Hfa 1 - 2 puffs INH Q4HR PRN #1 inhaler 02/11/19 Inhaler] Cyclobenzaprine [Flexeril] 10 mg PO TID PRN #12 tablet 03/15/19 07/30/19 Acetaminophen [Tylenol] 650 mg PO Q6H PRN 04/16/19 07/30/19 Aspirin/Acetaminophen/Caffeine 1 tab ORAL Q6HR PRN 04/16/19 07/30/19 [Excedrin Migraine Caplet] Cyclobenzaprine [Flexeril] 10 mg PO TID PRN #20 tablet 04/16/19 07/30/19 Duloxetine HCl 30 mg PO BID 04/16/19 07/30/19 Naproxen Sodium [Aleve] 220 mg PO BID PRN 04/16/19 07/30/19 Oxycodone HCl 5 - 10 mg PO Q6H PRN #9 tablet 04/16/19 07/30/19 lamoTRIgine [Subvenite] 150 mg PO BID 04/16/19 07/30/19 Hydrocodone/Acetaminophen 1 - 2 each PO Q6H PRN #14 tablet 07/21/19 07/30/19 [Hydrocodon-Acetaminophen 5-325] Oxycodone HCl/Acetaminophen 1 - 2 each PO Q6H PRN #14 tablet 07/30/19 [Percocet 5-325 mg Tablet] Prochlorperazine Maleate 10 mg PO TID PRN #10 tab 12/11/19 [Compazine] - Allergies Allergies/Adverse Reactions: Allergies Allergy/AdvReac Type Severity Reaction Status Date / Time sulfamethoxazole Allergy Severe Hives Verified 12/24/19 02:34 [From Bactrim] trimethoprim [From Bactrim] Allergy Severe Hives Verified 12/24/19 02:34 azithromycin [From Zithromax] Allergy Anaphylaxis Verified 12/24/19 02:34 - Social History Does the pt smoke?: No Smoking Status: Never smoker Does the pt drink ETOH?: Yes Does the pt have substance abuse?: No - Immunizations Immunizations are current?: Yes - POLST Patient has POLST: No POLST Status: Full Code PD ED PE NORMAL - Vitals Vital signs reviewed: Yes - General General: Alert and oriented X 3, No acute distress, Well developed/nourished - HEENT HEENT: Atraumatic, PERRL - Neck Neck: Supple, no meningeal sign - Cardiac Cardiac: RRR, No murmur, Strong equal pulses - Respiratory Respiratory: No respiratory distress, Clear bilaterally - Abdomen Abdomen: Normal bowel sounds, Soft, Other (6 cm Soft tissue laceration to the mid abdomen superior to the umbilicus) - Female Female : Deferred - Rectal Rectal: Deferred - Back Back: No CVA TTP, No spinal TTP - Derm Derm: Warm and dry, Other (Soft tissue 6 cm midline horizontal laceration to the abdomen superior to the umbilicus) - Extremities Extremities: No deformity - Neuro Neuro: Alert and oriented X 3, 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, No motor deficit, No sensory deficit, Normal speech - Psych Psych: Other (Depressed, not homicidal not suicidal denies auditory or visual hallucinations appropriate affect answers questions appropriately) Results - Vitals Vitals: Vital Signs - 24 hr 12/24/19 12/24/19 12/24/19 02:28 03:10 03:21 Temperature 36.7 C Heart Rate 123 H 127 H Respiratory 20 20 18 Rate Blood Pressure 181/123 H 135/94 H O2 Saturation 98 99 12/24/19 12/24/19 12/24/19 03:35 05:32 06:16 Temperature Heart Rate 96 Respiratory 17 14 14 Rate Blood Pressure 119/85 H O2 Saturation 95 Oxygen O2 Source Room air - Labs Labs: Laboratory Tests 12/24/19 12/24/19 12/24/19 02:50 02:50 02:50 WBC 8.8 RBC 4.75 Hgb 14.1 Hct 40.9 MCV 86.1 MCH 29.7 MCHC 34.5 RDW 12.6 Plt Count 243 MPV 8.6 Neut # (Auto) 4.3 Lymph # (Auto) 3.9 H [place] # (Auto) 0.5 Eos # (Auto) 0.1 Baso # (Auto) 0.0 Absolute Nucleated RBC 0.00 Nucleated RBC % 0.0 PT 13.2 H INR 1.2 APTT 30.1 Sodium 139 Potassium 3.5 Chloride 102 Carbon Dioxide 20 L Anion Gap 17.0 H BUN 12 Creatinine 0.7 Estimated GFR (MDRD) 94 Glucose 134 H Calcium 10.8 H Total Bilirubin 0.9 AST 79 H ALT 82 H Alkaline Phosphatase 54 Total Protein 7.5 Albumin 5.0 Globulin 2.5 Albumin/Globulin Ratio 2.0 Lipase 26 TSH Serum HCG, Qual Urine Color Urine Clarity Urine pH Ur Specific [place] Urine Protein Urine Glucose (UA) Urine Ketones Urine Occult Blood Urine Nitrite Urine Bilirubin Urine Urobilinogen Ur Leukocyte Esterase Ur Microscopic Review Urine Culture Comments Salicylates < 6.0 Urine Opiates Screen Ur Oxycodone Screen Urine Methadone Screen Ur Propoxyphene Screen Acetaminophen < 10 L Ur Barbiturates Screen Ur Tricyclics Screen Ur Phencyclidine Scrn Ur Amphetamine Screen U Methamphetamines Scrn U Benzodiazepines Scrn Urine Cocaine Screen U Cannabinoids Screen Ethyl Alcohol < 5.0 12/24/19 12/24/19 12/24/19 02:50 02:50 04:25 WBC RBC Hgb Hct MCV MCH MCHC RDW Plt Count MPV Neut # (Auto) Lymph # (Auto) [place] # (Auto) Eos # (Auto) Baso # (Auto) Absolute Nucleated RBC Nucleated RBC % PT INR APTT Sodium Potassium Chloride Carbon Dioxide Anion Gap BUN Creatinine Estimated GFR (MDRD) Glucose Calcium Total Bilirubin AST ALT Alkaline Phosphatase Total Protein Albumin Globulin Albumin/Globulin Ratio Lipase TSH 4.95 Serum HCG, Qual NEGATIVE Urine Color YELLOW Urine Clarity CLEAR Urine pH 7.0 Ur Specific [place] 1.020 Urine Protein NEGATIVE Urine Glucose (UA) NEGATIVE Urine Ketones 15 H Urine Occult Blood NEGATIVE Urine Nitrite NEGATIVE Urine Bilirubin NEGATIVE Urine Urobilinogen 0.2 (NORMAL) Ur Leukocyte Esterase NEGATIVE Ur Microscopic Review NOT INDICATED Urine Culture Comments NOT INDICATED Salicylates Urine Opiates Screen NEGATIVE Ur Oxycodone Screen NEGATIVE Urine Methadone Screen NEGATIVE Ur Propoxyphene Screen NEGATIVE Acetaminophen Ur Barbiturates Screen NEGATIVE Ur Tricyclics Screen POSITIVE H Ur Phencyclidine Scrn NEGATIVE Ur Amphetamine Screen POSITIVE H U Methamphetamines Scrn NEGATIVE U Benzodiazepines Scrn POSITIVE H Urine Cocaine Screen NEGATIVE U Cannabinoids Screen NEGATIVE Ethyl Alcohol Procedures - Laceration (location) Abdomen Anterior Length in cm: 6 Wound type: Linear, Into subcut fat, Clean Neurovascular status: Sensory intact, Motor intact, Vascular intact Anesthesia: Lidocaine 1% with epi, Volume - enter cc (3) Wound Preparation: Irrigated copiously NS, Wound explored, To the base, Other (No foreign bodies identified) Skin layer closure: [place], Other (8 gustavo) Other: Patient tolerated well, No complications, Neurovascular intact, Dressing applied, Tetanus UTD Complexity: Simple, Other PD MEDICAL DECISION MAKING - ED course Complexity details: reviewed old records, reviewed results, re-evaluated patient, considered differential, d/w patient ED course: 39-year-old female with a history of self cutting and psychiatric disorder today was found to be self cutting to her abdomen. Patient would like to be discharged home. Therefore the designated mental health provider was consulted. Patient evaluated by the DCR who recommends discharge home. Departure - Departure Disposition: 01 Home, Self Care Clinical Impression: Laceration of skin, Deliberate self-cutting Laceration of abdominal wall Qualifiers: Encounter type: initial encounter Qualified Code(s): S31.119A - Laceration without foreign body of abdominal wall, unspecified quadrant without penetration into peritoneal cavity, initial encounter Condition: Stable Instructions: ED Laceration Ext Sutr Stap Tape Follow-Up: your, doctor [Other] Comments: Please follow-up for staple removal in 7 to 10 days. Call your psychiatrist today for a follow-up please call your primary care provider today for follow-up as well.
[2019-12-24] MEDS ORDERED: LIDOCAINE 1%-EPI 1:100000 20 ML MDV SUBQ STA (02:32)
[2019-12-24] MEDS ORDERED: BACITRACIN ZINC OINT 1 PACKET TOP STA (02:32)
[2019-12-24 02:57] LABS: BASOPHILS % (AUTO) 0.3 %; EOSINOPHILS # (AUTO) 0.1 10^3/uL (0.0-0.7); EOSINOPHILS % (AUTO) 0.8 %; HGB - HEMOGLOBIN 14.1 g/dL (12.0-16.0); LYMPHOCYTES # (AUTO) 3.9 10^3/uL (1.5-3.5); LYMPHOCYTES % (AUTO) 43.6 %; MEAN CORPUSCULAR HEMOGLOBIN 29.7 pg (27.0-31.0); MEAN CORPUSCULAR HGB CONC 34.5 g/dL (32.0-36.0); MEAN CORPUSCULAR VOLUME 86.1 fL (81.0-99.0); MEAN PLATELET VOLUME 8.6 fL (7.9-10.8); MONOCYTES # (AUTO) 0.5 10^3/uL (0.0-1.0); MONOCYTES % (AUTO) 5.8 %; NEUTROPHILS # (AUTO) 4.3 10^3/uL (1.5-6.6); NEUTROPHILS % (AUTO) 48.9 %; PLT - PLATELET COUNT 243 10^3/uL (130-450); RED BLOOD COUNT 4.75 10^6/uL (4.20-5.40); RED CELL DISTRIBUTION WIDTH 12.6 % (12.0-15.0); WHITE BLOOD COUNT 8.8 x10^3/uL (4.8-10.8)
[2019-12-24] MEDS ORDERED: PROCHLORPERAZINE 10 MG/2 ML VIAL IVP STA (03:03)
[2019-12-24 03:11] LABS: INR 1.2 (0.8-1.2); PT - PROTHROMBIN TIME 13.2 secs (9.9-12.6)
[2019-12-24 03:12] LABS: ACETAMINOPHEN < 10 ug/mL (10-30); ALKALINE PHOSPHATASE 54 IU/L (42-121); ALT ALANINE AMINOTRANSFERASE 82 IU/L (10-60); AST ASPARTATE AMINOTRANSFERASE 79 IU/L (10-42); BILIRUBIN,TOTAL 0.9 mg/dL (0.2-1.0); BUN - BLOOD UREA NITROGEN 12 mg/dL (6-20); CALCIUM 10.8 mg/dL (8.5-10.3); CARBON DIOXIDE - CO2 20 mmol/L (21-32); CHLORIDE 102 mmol/L (101-111); CREATININE 0.7 mg/dL (0.4-1.0); GLUCOSE 134 mg/dL (70-100); LIPASE 26 U/L (22-51); SALICYLATE < 6.0 mg/dL; SODIUM 139 mmol/L (135-145); TOTAL PROTEIN 7.5 g/dL (6.7-8.2)
[2019-12-24 03:18] LABS: PARTIAL THROMBOPLASTIN TIME 30.1 secs (24.9-33.3)
[2019-12-24] MEDS ORDERED: IOVERSOL 320 100 ML VIAL IVP ONE ×2 (03:22→03:38)
[2019-12-24 03:26] LABS: HCG,QUALITATIVE BLOOD NEGATIVE
[2019-12-24 03:36] VITALS: BP 119/85
[2019-12-24 04:25] LABS: BILIRUBIN,URINE NEGATIVE (NEGATIVE); GLUCOSE, URINE (UA) NEGATIVE (NEGATIVE); KETONES,URINE (UA) 15 mg/dL (NEGATIVE); LEUKOCYTE ESTERASE, URINE NEGATIVE (NEGATIVE); MUDS CUTOFF CONCENTRATIONS CUTOFF CONC BELOW:; NITRITE,URINE NEGATIVE (NEGATIVE); OCCULT BLOOD,URINE NEGATIVE (NEGATIVE); PROTEIN,URINE NEGATIVE (NEGATIVE); UROBILINOGEN,URINE 0.2 (NORMAL) E.U./dL (NORMAL)
[2019-12-24 04:30] LABS: CLARITY,URINE CLEAR (CLEAR)
[2019-12-24 04:35] LABS: AMPHETAMINE SCREEN,URINE POSITIVE (NEGATIVE); BENZODIAZEPINES SCREEN, URINE POSITIVE (NEGATIVE); COCAINE SCREEN URINE NEGATIVE (NEGATIVE); METHADONE SCREEN, URINE NEGATIVE (NEGATIVE); METHAMPHETAMINES SCREEN, URINE NEGATIVE (NEGATIVE); OPIATE SCREEN, URINE NEGATIVE (NEGATIVE); OXYCODONE SCREEN, URINE NEGATIVE (NEGATIVE); PROPOXYPHENE SCREEN, URINE NEGATIVE (NEGATIVE); TRICYCLIC ANTIDEPRESSANT,URINE POSITIVE (NEGATIVE)
--- NOTE | 2019-12-24 08:04 | CT Report ---
PROCEDURE: Abdomen/Pelvis W INDICATIONS: abd laceration CONTRAST: IV CONTRAST: Optiray 320 ml: 100 PO CONTRAST: *NO PO CONTRAST TECHNIQUE: After the administration of intravenous contrast, 5 mm thick sections acquired from the diaphragms to the symphysis. 5 mm thick coronal and sagittal reformats were acquired. For radiation dose reducti on, the following was used: automated exposure control, adjustment of mA and/or kV according to rj ent size. COMPARISON: CT abdomen/pelvis 10/07/2019 FINDINGS: Image quality: Excellent. ABDOMEN: Lung bases: Lung bases are clear. Heart size is normal. Solid organs: Liver is mildly enlarged, measuring 24 cm in craniocaudal dimension. No focal liver les ion is seen. The spleen enhances normally.. Gallbladder appears normal. Biliary system is non dilat ed. Pancreas enhances normally. No adrenal nodules. Kidneys demonstrate normal size and enhancemen t, without hydronephrosis. Peritoneum and bowel: Bowel loops demonstrate normal wall thickness and caliber. No free fluid or a ir. Nodes and vessels: No retroperitoneal or mesenteric adenopathy by size criteria. Aorta and inferior vena cava are normal in size. Miscellaneous: Skin irregularity is seen in the upper abdomen at the midline with underlying subcutan eous edema extending to a depth of 2.9 cm, compatible with reported laceration. No extension into the anterior abdominal wall musculature is seen and there is no intra-abdominal extension. There is a sm all fat-containing periumbilical hernia. PELVIS: Genitourinary: Bladder wall thickness is normal. Miscellaneous: No inguinal hernias or adenopathy. A sciatic nerve stimulator lead is seen in the po sterior subcutaneous tissues. Bones: No suspicious bony lesions. No vertebral body compression fractures. IMPRESSION: 1. Laceration in the midline upper abdomen involving the skin surface and subcutaneous tissues withou t involvement of the abdominal wall musculature or intra-abdominal contents. No discrete fluid collec tion is seen. 2. Mild hepatomegaly. Findings are concordant with the overnight teleradiology report. Reviewed by: Vito Gannon MD on 12/24/2019 8:02 AM PDT Approved by: Vito Gannon MD on 12/24/2019 8:02 AM PDT Station ID: [id number]
== END 2019-12-24 07:08 | disposition home or self-care (01) ==
LOC: ED 02:19
DX: S31.119A Laceration without foreign body of abdominal wall, unspecified quadrant without penetration into peritoneal cavity, initial encounter (principal); X78.1XXA Intentional self-harm by knife, initial encounter; Y92.009 Unspecified place in unspecified non-institutional (private) residence as the place of occurrence of the external cause
CPT/HCPCS: 12002; 36415; 74177; 80320; 80329; 81003; 83690; 84703; 85610; 85730; 96374; 99282; 99284; A9270; Q9967; 80053; 80306; 80307; 81001; 84443; 85025; 87086

== ENCOUNTER 2020-01-17 15:33 | Outpatient (CLI) | payer OTHER ==
[2020-01-17] MEDS ORDERED: GADOBUTROL 10 MMOL/10 ML VIAL ONE (16:02)
[2020-01-17] MEDS ORDERED: GADOBUTROL 10 MMOL/10 ML VIAL IVP ONE (17:30)
--- NOTE | 2020-01-19 09:39 | MRI Report ---
PROCEDURE: Brain W/WO INDICATIONS: GRADUAL ONSET PROGRESSIVE CLUMSINESS CONTRAST: IV CONTRAST: Gadavist ml: 10 TECHNIQUE: Noncontrast axial T1 spin echo, axial T2 fast spin echo, sagittal and axial FLAIR, coronal T2 fast sp in echo, axial gradient echo, axial diffusion and ADC through the brain. After the administration of contrast, axial and coronal T1 spin echo with fat saturation through the brain. COMPARISON: 09.20.17 FINDINGS: Image quality: Partially degraded by motion artifact. CSF spaces: Basal cisterns are patent. No extra-axial fluid collections. Ventricles are normal in size and shape. Brain: No midline shift. No intracranial bleeds or masses. No abnormal intracranial enhancement. There is cerebral volume loss for age. There is periventricular white matter chronic small vessel is chemic change. The brainstem appears normal. Diffusion-weighted images demonstrate no acute ischemi c insults. No chronic ischemic insults. Normal intravascular flow voids are present. Skull and face: Calvarial marrow is normal in signal. Orbits appear normal. Sinuses: Sinuses and mastoids appear clear. IMPRESSION: 1. Negative brain MRI. 2. No acute process. No recent infarct. Reviewed by: Vonnie Vance MD on 01/19/2020 9:38 AM PDT Approved by: Vonnie Vance MD on 01/19/2020 9:38 AM PDT Station ID: [id number]
== END 2020-01-17 15:34 | disposition home or self-care (01) ==
LOC: DI 15:33
PROVIDERS: ATTEND Internal Medicine
DX: R42 Dizziness and giddiness (principal)
CPT/HCPCS: 70553; A9585

== ENCOUNTER 2020-05-04 05:27 | Emergency (ER) | payer OTHER ==
[2020-05-04] MEDS ORDERED: SODIUM CHLORIDE 0.9% 1,000 ML IV STA (05:56)
[2020-05-04] MEDS ORDERED: diphenhydrAMINE INJ 50 MG/ML VIAL IVP STA (05:56)
[2020-05-04] MEDS ORDERED: KETOROLAC 30 MG/ML VIAL IVP STA (05:56)
[2020-05-04] MEDS ORDERED: METOCLOPRAMIDE 10 MG/2 ML VIAL IVP STA (05:56)
[2020-05-04 06:19] LABS: BASOPHILS % (AUTO) 0.3 %; EOSINOPHILS # (AUTO) 0.2 10^3/uL (0.0-0.7); EOSINOPHILS % (AUTO) 2.2 %; HGB - HEMOGLOBIN 14.1 g/dL (12.0-16.0); LYMPHOCYTES # (AUTO) 2.7 10^3/uL (1.5-3.5); LYMPHOCYTES % (AUTO) 34.7 %; MEAN CORPUSCULAR HEMOGLOBIN 29.2 pg (27.0-31.0); MEAN CORPUSCULAR HGB CONC 33.5 g/dL (32.0-36.0); MEAN CORPUSCULAR VOLUME 87.2 fL (81.0-99.0); MEAN PLATELET VOLUME 8.7 fL (7.9-10.8); MONOCYTES # (AUTO) 0.5 10^3/uL (0.0-1.0); MONOCYTES % (AUTO) 5.9 %; NEUTROPHILS # (AUTO) 4.4 10^3/uL (1.5-6.6); NEUTROPHILS % (AUTO) 56.4 %; PLT - PLATELET COUNT 207 10^3/uL (130-450); RED BLOOD COUNT 4.83 10^6/uL (4.20-5.40); RED CELL DISTRIBUTION WIDTH 12.9 % (12.0-15.0); WHITE BLOOD COUNT 7.8 x10^3/uL (4.8-10.8)
--- NOTE | 2020-05-04 06:22 | ED Physician Documentation ---
PD HPI HEADACHE - Stated complaint Stated Complaint: SIGNS OF STROKE,SPASAMS - Chief complaint Chief Complaint: Neuro - History obtained from History obtained from: Patient, Family (father) - History of Present Illness Timing - onset: How many hours ago (1-2) Timing - onset during: Sleep, Rest Timing - duration: Hours Timing - details: Abrupt onset, Still present Worst headache ever?: No: Worst headache ever? (similar to prior migraines) Location: Back, Left Quality: Throbbing, Aching Associated symptoms: Other (difficulty speaking, and with episodic jerking/spasm movements randomly variable arms and legs.). No: Fever, Stiff neck, Nausea, Vision changes Contributing factors: No: Anticoagulated, Hypertension, Trauma Similar symptoms before: No diagnosis (She has had various headache associated with one-sided weakness or difficulty speaking episodically over many months. Prior evaluations of CTA head and neck during time of symptoms were negative. She had an outpatient brain MRI in December.) Recently seen: Emergency Dept ([facility] emergency room with similar episode and states she had CT imaging and MRI without obvious findings. Referred for neurology outpatient at [facility] in May.) Review of Systems Constitutional: denies: Fever Eyes: denies: Loss of vision Nose: denies: Rhinorrhea / runny nose, Congestion Throat: denies: Sore throat Respiratory: denies: Cough GI: denies: Vomiting, Diarrhea Neurologic: reports: Difficulty speaking, Headache (just tonight), Other (intermittent spasms and jerking movements variable limbs and trunk.). 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: section, Hysterectomy, Oophrectomy, Other HEENT: Tonsil/Adenoidectomy - Present Medications Home Medications: Ambulatory Orders Medication Instructions Recorded Confirmed Alprazolam [Xanax] 2 mg PO BID PRN 10/29/14 05/04/20 Estrogens, Conjugated [Premarin] 0.9 mg PO DAILY 01/17/18 05/04/20 Duloxetine HCl 30 mg PO TID 04/16/19 05/04/20 Indomethacin [Indocin] 25 mg PO BIDWM #20 cap 05/04/20 Nitrofurantoin [Macrobid] 100 mg PO DAILY 05/04/20 05/04/20 Pantoprazole [Protonix] 40 mg PO DAILY 05/04/20 05/04/20 SUMAtriptan [Imitrex] 25 mg PO ONCE PRN 05/04/20 05/04/20 lamoTRIgine [LaMICtal] 150 mg PO DAILY 05/04/20 05/04/20 - Allergies Allergies/Adverse Reactions: Allergies Allergy/AdvReac Type Severity Reaction Status Date / Time sulfamethoxazole Allergy Severe Hives Verified 05/04/20 05:54 [From Bactrim] trimethoprim [From Bactrim] Allergy Severe Hives Verified 05/04/20 05:54 azithromycin [From Zithromax] Allergy Anaphylaxis Verified 05/04/20 05:54 - Social History Does the pt smoke?: No Smoking Status: Never smoker Does the pt drink ETOH?: Yes Does the pt have substance abuse?: No - Immunizations Immunizations are current?: Yes - POLST Patient has POLST: No POLST Status: Full Code PD ED PE NORMAL - Vitals Vital signs reviewed: Yes - General General: Alert and oriented X 3, Well developed/nourished, Other (She does seem anxious and concerned about current symptoms. She is having a stuttering type speech impediment and aphasia. She is able to state her meaning eventually. No word salad.) - HEENT HEENT: PERRL, EOMI (no nystagmus seen), Moist mucous membranes, Pharynx benign - Neck Neck: Supple, no meningeal sign, No adenopathy, No bruit - Cardiac Cardiac: RRR, No murmur - Respiratory Respiratory: Clear bilaterally - Abdomen Abdomen: Soft, Non tender - Derm Derm: Normal color, Warm and dry - Extremities Extremities: Normal ROM s pain, No edema, No calf tenderness / cord - Neuro Neuro: Alert and oriented X 3, No motor deficit (she is moving extremities symmetrically, but with some spasms/jerking movement at times. ) Eye Opening: Spontaneous Motor: Obeys Commands Verbal: Oriented GCS Score: 15 Results - Vitals Vitals: Vital Signs - 24 hr 05/04/20 05/04/20 05:36 07:56 Temperature 37.2 C Heart Rate 128 H 116 H Respiratory 24 16 Rate Blood Pressure 155/114 H 125/81 H O2 Saturation 98 95 Oxygen O2 Source Room air - Labs Labs: Laboratory Tests 05/04/20 05/04/20 05/04/20 06:15 06:15 06:15 WBC 7.8 RBC 4.83 Hgb 14.1 Hct 42.1 MCV 87.2 MCH 29.2 MCHC 33.5 RDW 12.9 Plt Count 207 MPV 8.7 Neut # (Auto) 4.4 Lymph # (Auto) 2.7 [place] # (Auto) 0.5 Eos # (Auto) 0.2 Baso # (Auto) 0.0 Absolute Nucleated RBC 0.00 Nucleated RBC % 0.0 Sodium 135 Potassium 3.9 Chloride 97 L Carbon Dioxide 24 Anion Gap 14.0 H BUN 9 Creatinine 0.6 Estimated GFR (MDRD) 112 Glucose 174 H Calcium 9.9 Magnesium 2.0 Total Bilirubin 0.9 AST 99 H ALT 90 H Alkaline Phosphatase 80 C-Reactive Protein 1.1 H Total Protein 8.1 Albumin 4.7 Globulin 3.4 Albumin/Globulin Ratio 1.4 PD MEDICAL DECISION MAKING - ED course Complexity details: reviewed old records, reviewed results (from prior imaging and visits), re-evaluated patient (Patient is considerably improved and her speech after Toradol Reglan and Benadryl. The jerking movements have dissipated. She still has moderate headache. That is improved with some added pain medicine.), considered differential (has had eval for ischemic causes prior ED visits and also outpt brain MRI 01/19/20. So consider other causes, such as complex migraine, atypical seizure, medications side effects. ), d/w patient, d/w guidance consultant (With on-call neurology at [facility] and they reviewed the me urology notes as well as MRI and CT and lab results from the ER visit is at [facility]. The neurologist did not see a reason for transfer at this point. Treat symptomatically and perhaps target migraine. Otherwise follow-up with neuro) ED course: She is quite a bit improved neurologically and headache after some fluids and migraine targeted medicine along with some chest pain medicine. This is more suggestive of complex migraine but she should still be certainly following up with neurology. Departure - Departure Disposition: 01 Home, Self Care Clinical Impression: Expressive aphasia, Muscle spasm Headache, acute Qualifiers: Headache type: unspecified Intractability: not intractable Qualified Code(s): R51.9 - Headache, unspecified Migraine Qualifiers: Migraine type: unspecified Status migrainosus presence: without status migrainosus Intractability: not intractable Qualified Code(s): G43.909 - Migraine, unspecified, not intractable, without status migrainosus Condition: Stable Record reviewed to determine appropriate education?: Yes Instructions: ED Headache Migraine Prescriptions: Indomethacin [Indocin] 25 mg PO BIDWM #20 cap Comments: I talked with neurology at [facility] and they did not feel transfer to their facility was needed emergently at this time. They do however urge following up with neurology appointment either one that you may have already planned so double check on that or alternatively you could contact the [facility] neuro clinic (epilepsy clinic) at [phone] as there was suggestion on your neurology consultation when you were seen at [facility] of possibly getting an EEG. Other consideration was complex migraine or other alternatives. For subsequent headaches with the symptoms, continue the sumatriptan that you have at home. You can combine it with indomethacin for the headaches. Some types of migraines and headaches are particularly responsive to indomethacin as an anti-inflammatory. Follow-up with neurology. Continue your other usual medications. Stay well- hydrated.
[2020-05-04 06:33] LABS: ALBUMIN 4.7 g/dL (3.2-5.5); ALBUMIN/GLOBULIN RATIO 1.4 (1.0-2.2); BILIRUBIN,TOTAL 0.9 mg/dL (0.2-1.0); CALCIUM 9.9 mg/dL (8.5-10.3); CREATININE 0.6 mg/dL (0.4-1.0); TOTAL PROTEIN 8.1 g/dL (6.7-8.2)
[2020-05-04] MEDS ORDERED: HYDROmorphone 1 MG/ML CARPUJECT IVP STA (06:57)
[2020-05-04 07:57] VITALS: BP 125/81
[2020-05-04] MEDS ORDERED: DEXAMETHASONE 10 MG/ML VIAL IVP STA (08:01)
== END 2020-05-04 09:11 | disposition home or self-care (01) ==
LOC: ED 05:27
DX: G43.909 Migraine, unspecified, not intractable, without status migrainosus (principal); R47.01 Aphasia; M62.838 Other muscle spasm; R29.898 Other symptoms and signs involving the musculoskeletal system
CPT/HCPCS: 36415; 80053; 83735; 85025; 86140; 96361; 96374; 96375; 99284; 99285; J1170; J1200; J2765

== ENCOUNTER 2020-05-15 09:47 | Emergency (ER) | payer OTHER ==
[2020-05-15] MEDS ORDERED: KETOROLAC 60 MG/2 ML VIAL IM STA (10:09)
--- NOTE | 2020-05-15 10:36 | XRAY Report ---
PROCEDURE: Shoulder 3 View RT INDICATIONS: anterior shoulder contusion TECHNIQUE: 3 views of the shoulder were acquired. COMPARISON: None. FINDINGS: Bones: No fractures or dislocations. No suspicious bony lesions. Visualized ribs appear intact. T here is an apparent bone island seen within the humeral head. Soft tissues: No suspicious soft tissue calcifications. The visualized lung demonstrates a normal a ppearance. IMPRESSION: No significant plain film abnormality can be seen of the shoulder. If it would be helpful for clinical management decision making, please consider a dedicated, schedule d shoulder MRI for further evaluation (assuming that there is no contraindication). If there is stron g clinical concern for labral pathology, then please consider performing this according to the arthro gram protocol. Reviewed by: Mendoza Boykin MD on 05/15/2020 9:35 AM [facility] Approved by: Mendoza Boykin MD on 05/15/2020 9:35 AM [facility] Station ID: [id number]
--- NOTE | 2020-05-15 10:43 | ED Physician Documentation ---
PD HPI UPPER EXT INJURY - Stated complaint Stated Complaint: RT SHOULDER INJURY - Chief complaint Chief Complaint: General - History obtained from History obtained from: Patient - History of Present Illness Location: Right, Shoulder Type of injury: Blunt / blow Where injury occurred: Home Timing - onset: Last night Timing - duration: Hours Timing - details: Abrupt onset, Still present Improved by: Rest, Immobilization Worsened by: Moving, Palpating Associated symptoms: Swelling, Discolored. No: Weakness, Numbness Contributing factors: No: Anticoagulated Similar symptoms before: Has not had sx before Recently seen: Not recently seen - Additonal information Additional information: 39-year-old female reports that she was chasing a cat in her home last night when she ran into the edge of a corner of a wall and struck her right shoulder directly. She has a lot of pain to her shoulder pain with movement she has a big bruise to the area. Review of Systems Constitutional: denies: Fever Eyes: denies: Decreased vision Ears: denies: Ear pain Nose: denies: Congestion Throat: denies: Sore throat Respiratory: denies: Cough GI: denies: Vomiting Skin: denies: Rash, Lesions Musculoskeletal: reports: Joint pain. 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 : Chronic bladder infection, Kidney stones, Other HEENT: None Psych: Depression, Anxiety, Bipolar disorder, Panic attacks, ADD/ADHD, Post traumatic stress disorder Musculoskeletal: Fibromyalgia, Chronic back pain Derm: None - Past Surgical History Past Surgical History: Yes Ortho: Spine surgery, 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: section, Hysterectomy, Oophrectomy, Other HEENT: Tonsil/Adenoidectomy - Present Medications Home Medications: Ambulatory Orders Medication Instructions Recorded Confirmed Alprazolam [Xanax] 2 mg PO BID PRN 10/29/14 05/04/20 Estrogens, Conjugated [Premarin] 0.9 mg PO DAILY 01/17/18 05/04/20 Duloxetine HCl 30 mg PO TID 04/16/19 05/04/20 Indomethacin [Indocin] 25 mg PO BIDWM #20 cap 05/04/20 Nitrofurantoin [Macrobid] 100 mg PO DAILY 05/04/20 05/04/20 Pantoprazole [Protonix] 40 mg PO DAILY 05/04/20 05/04/20 SUMAtriptan [Imitrex] 25 mg PO ONCE PRN 05/04/20 05/04/20 lamoTRIgine [LaMICtal] 150 mg PO DAILY 05/04/20 05/04/20 Oxycodone HCl/Acetaminophen 1 - 2 each PO Q6H PRN #14 tab 05/15/20 [Percocet 5-325 mg Tablet] - Allergies Allergies/Adverse Reactions: Allergies Allergy/AdvReac Type Severity Reaction Status Date / Time sulfamethoxazole Allergy Severe Hives Verified 05/15/20 10:06 [From Bactrim] trimethoprim [From Bactrim] Allergy Severe Hives Verified 05/15/20 10:06 azithromycin [From Zithromax] Allergy Anaphylaxis Verified 05/15/20 10:06 - Social History Does the pt smoke?: No Smoking Status: Never smoker Does the pt drink ETOH?: Yes Does the pt have substance abuse?: No - Immunizations Immunizations are current?: Yes - POLST Patient has POLST: No POLST Status: Full Code PD ED PE NORMAL - Vitals Vital signs reviewed: Yes (tachy and hypertensive) - General General: Alert and oriented X 3, No acute distress, Well developed/nourished - HEENT HEENT: Atraumatic, PERRL, EOMI - Neck Neck: Supple, no meningeal sign, No bony TTP - Respiratory Respiratory: No respiratory distress - Derm Derm: Normal color, Warm and dry, No rash - Extremities Extremities: Other (There is swelling and ecchymosis to the right anterior shoulder. There is pain to palpation anteriorly and there is pain to movement of the shoulder the distal neurovascular components are intact. There is fair range of motion.) - Neuro Neuro: Alert and oriented X 3, md urologist 2-12 intact, No motor deficit, No sensory deficit, Normal speech Eye Opening: Spontaneous Motor: Obeys Commands Verbal: Oriented GCS Score: 15 - Psych Psych: Normal mood, Normal affect Results - Vitals Vitals: Vital Signs - 24 hr 05/15/20 09:54 Temperature 36.9 C Heart Rate 112 H Respiratory 18 Rate Blood Pressure 138/87 H O2 Saturation 99 Oxygen O2 Source Room air - Rads (name of study) shoulder Radiology: Prelim report reviewed (Impression: No significant plain film abnormality can be seen of the shoulder), EMP read indepedently, See rad report PD MEDICAL DECISION MAKING - ED course Complexity details: considered differential, d/w patient ED course: 39-year-old female with right anterior shoulder contusion has no evidence of fracture on x-ray examination she is administered Toradol here in the emergency department. She has only minimal relief with this. She has not had a fill of narcotic script since July of last year. There is extensive bruising and this looks like it would hurt and she is prescribe a limited amount of percocet and placed into a sling. Departure - Departure Disposition: 01 Home, Self Care Clinical Impression: Contusion of right shoulder Qualifiers: Encounter type: initial encounter Qualified Code(s): S40.011A - Contusion of right shoulder, initial encounter Condition: Stable Instructions: ED Contusion Shoulder Follow-Up: Pippa Cooper MD [Primary Care Provider] - Prescriptions: Oxycodone HCl/Acetaminophen [Percocet 5-325 mg Tablet] 1 - 2 each PO Q6H PRN #14 tab PRN Reason: pain
[2020-05-15 11:13] VITALS: BP 136/77
== END 2020-05-15 11:13 | disposition home or self-care (01) ==
LOC: ED 09:47
DX: S40.011A Contusion of right shoulder, initial encounter (principal); W22.01XA Walked into wall, initial encounter; Y93.89 Activity, other specified; Y92.009 Unspecified place in unspecified non-institutional (private) residence as the place of occurrence of the external cause
CPT/HCPCS: 96372; 99283; 99284

== ENCOUNTER 2020-06-27 21:14 | Outpatient (CLI) | payer OTHER | END 2020-06-27 21:15 | disposition critical access hospital (66) | LOC: EMS 21:14 | DX: R10.9 Unspecified abdominal pain (principal); R50.9 Fever, unspecified | CPT/HCPCS: A0425; A0427 ==

== ENCOUNTER 2020-06-27 21:27 | Emergency (ER) | payer OTHER ==
--- NOTE | 2020-06-27 21:36 | ED Physician Documentation ---
PD HPI ABD PAIN - Stated complaint Stated Complaint: LEFT FLANK PAIN, FEVER - History obtained from History obtained from: Patient - History of Present Illness Timing - onset: How many days ago (3) Timing - duration: Days (3) Timing - details: Gradual onset, Still present, Waxing and waning Quality: Aching, Sharp, Pain Location: LUQ Radiation: Left flank, Right shoulder Improved by: Laying still, Position (lying flat). No: Eating Worsened by: Moving. No: Eating, Breathing, Palpation Associated symptoms: Fever (subjective today), Nausea, Hematuria (she thought there was cloudiness and blood tinge of her urine earlier today.). No: Vom iting, Hematemesis, Diarrhea, Dysuria Similar symptoms before: Diagnosis (has had similar with kidney infections and kidney stones.) Recently seen: Not recently seen Review of Systems Constitutional: reports: Fever (today, subjective), Chills. denies: Myalgias Nose: denies: Rhinorrhea / runny nose, Congestion Throat: denies: Sore throat Cardiac: denies: Chest pain / pressure, Palpitations Respiratory: denies: Dyspnea, Cough GI: reports: Abdominal Pain, Nausea. denies: Vomiting, Diarrhea : reports: Discharge (some white discharge with redness labial, which she thinks is likely a yeast infection.) Skin: denies: Rash, Lesions Musculoskeletal: reports: Back pain (left flank) Neurologic: reports: Generalized weakness, Near syncope (she says she gets "passing out episodes" when she has episodes like this. Has seen neurologist about them without diagnosis.). 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, Hysterectomy, Oophrectomy, Other HEENT: Tonsil/Adenoidectomy - Present Medications Home Medications: Ambulatory Orders Medication Instructions Recorded Confirmed Alprazolam [Xanax] 2 mg PO BID PRN 10/29/14 06/27/20 Estrogens, Conjugated [Premarin] 0.9 mg PO DAILY 01/17/18 06/27/20 Duloxetine HCl 30 mg PO TID 04/16/19 06/27/20 Nitrofurantoin [Macrobid] 100 mg PO DAILY 05/04/20 06/27/20 Pantoprazole [Protonix] 40 mg PO DAILY 05/04/20 06/27/20 lamoTRIgine [LaMICtal] 150 mg PO DAILY 05/04/20 06/27/20 Fluconazole [Diflucan] 150 mg PO Q3D #2 tablet 06/28/20 Phenazopyridine HCl [Pyridium] 100 mg PO TID PRN #15 tablet 06/28/20 Promethazine [Phenergan] 25 mg PO Q6H PRN #15 tab 06/28/20 dexAMETHasone [Decadron] 4 mg PO DAILY #5 tablet 06/28/20 - Allergies Allergies/Adverse Reactions: Allergies Allergy/AdvReac Type Severity Reaction Status Date / Time sulfamethoxazole Allergy Severe Hives Verified 06/27/20 21:48 [From Bactrim] trimethoprim [From Bactrim] Allergy Severe Hives Verified 06/27/20 21:48 azithromycin [From Zithromax] Allergy Anaphylaxis Verified 06/27/20 21:48 - Social History Does the pt smoke?: No Smoking Status: Never smoker Does the pt drink ETOH?: Yes Does the pt have substance abuse?: No - Immunizations Immunizations are current?: Yes - POLST Patient has POLST: No POLST Status: Full Code PD ED PE NORMAL - Vitals Vital signs reviewed: Yes - General General: Alert and oriented X 3, Well developed/nourished, Other (seems uncomfortable and also with some stuttering language pattern. Content is normal. ) - Neck Neck: Supple, no meningeal sign, No adenopathy - Cardiac Cardiac: RRR, No murmur - Respiratory Respiratory: No respiratory distress, Clear bilaterally - Abdomen Abdomen: Normal bowel sounds, Soft, Non distended, No organomegaly, Other (some tender left mid abd and to left flank. ) - Female Female : Deferred (allowed her to self swab for BV test. ) - Back Back: No spinal TTP, Other (some left CVA tenderness. ) - Derm Derm: Normal color, Warm and dry, No rash - Extremities Extremities: No tenderness to palpate, Normal ROM s pain, No edema, No calf tenderness / cord - Neuro Neuro: Alert and oriented X 3, No motor deficit Results - Vitals Vitals: Vital Signs - 24 hr 06/27/20 06/27/20 06/27/20 21:27 21:30 22:08 Temperature 37.7 C Heart Rate 132 H 125 H Respiratory 25 H 22 Rate Blood Pressure 163/105 H 139/90 H O2 Saturation 98 85 L 3 L 06/27/20 06/27/20 06/27/20 22:10 22:30 22:38 Temperature 37.1 C Heart Rate 126 H 126 H Respiratory 26 H 30 H Rate Blood Pressure 152/115 H 156/105 H O2 Saturation 99 94 06/27/20 06/27/20 06/27/20 23:01 23:30 23:58 Temperature 36.9 C Heart Rate 127 H 113 H 116 H Respiratory 22 34 H 23 Rate Blood Pressure 151/84 H 151/84 H 154/77 H O2 Saturation 97 97 96 06/28/20 00:40 Temperature 36.0 C L Heart Rate 104 H Respiratory 16 Rate Blood Pressure 112/72 O2 Saturation 97 Oxygen O2 Source Room air Oxygen Flow Rate 3 - Labs Labs: Laboratory Tests 06/27/20 06/27/20 06/27/20 21:58 21:58 22:35 WBC 6.4 RBC 4.66 Hgb 13.4 Hct 39.9 MCV 85.6 MCH 28.8 MCHC 33.6 RDW 12.9 Plt Count 199 MPV 8.5 Neut # (Auto) 4.0 Lymph # (Auto) 2.0 [place] # (Auto) 0.3 Eos # (Auto) 0.1 Baso # (Auto) 0.0 Absolute Nucleated RBC 0.00 Nucleated RBC % 0.0 Sodium 139 Potassium 3.7 Chloride 106 Carbon Dioxide 21 Anion Gap 12.0 BUN 9 Creatinine 0.5 Estimated GFR (MDRD) 138 Glucose 123 H Calcium 9.2 Magnesium 1.8 Total Bilirubin 0.6 AST 87 H ALT 79 H Alkaline Phosphatase 72 Total Protein 7.4 Albumin 4.2 Globulin 3.2 Albumin/Globulin Ratio 1.3 Lipase 28 Urine Color YELLOW Urine Clarity HAZY Urine pH 7.5 Ur Specific [place] 1.020 Urine Protein NEGATIVE Urine Glucose (UA) NEGATIVE Urine Ketones TRACE Urine Occult Blood NEGATIVE Urine Nitrite NEGATIVE Urine Bilirubin NEGATIVE Urine Urobilinogen 0.2 (NORMAL) Ur Leukocyte Esterase TRACE H Urine RBC 0-5 Urine WBC 6-10 H Ur Squamous Epith Cells MANY Squamous H Urine Bacteria Many H Ur Microscopic Review INDICATED Urine Culture Comments NOT INDICATED Urine HCG, Qual 06/27/20 22:35 WBC RBC Hgb Hct MCV MCH MCHC RDW Plt Count MPV Neut # (Auto) Lymph # (Auto) [place] # (Auto) Eos # (Auto) Baso # (Auto) Absolute Nucleated RBC Nucleated RBC % Sodium Potassium Chloride Carbon Dioxide Anion Gap BUN Creatinine Estimated GFR (MDRD) Glucose Calcium Magnesium Total Bilirubin AST ALT Alkaline Phosphatase Total Protein Albumin Globulin Albumin/Globulin Ratio Lipase Urine Color Urine Clarity Urine pH Ur Specific [place] Urine Protein Urine Glucose (UA) Urine Ketones Urine Occult Blood Urine Nitrite Urine Bilirubin Urine Urobilinogen Ur Leukocyte Esterase Urine RBC Urine WBC Ur Squamous Epith Cells Urine Bacteria Ur Microscopic Review Urine Culture Comments Urine HCG, Qual NEGATIVE - Rads (name of study) abd CT Radiology: Prelim report reviewed (left renal stone. No hydro nor ureteral stones. No acute process. Incidental bladder stimulator wire in back still present. No stimulator currently. ), See rad report PD MEDICAL DECISION MAKING - ED course Complexity details: reviewed results (no acute process such as passing stone nor UTI. ), considered differential, d/w patient Departure - Departure Disposition: 01 Home, Self Care Clinical Impression: Flank pain, Dysuria, Yeast vaginitis, Interstitial cystitis Condition: Stable Record reviewed to determine appropriate education?: Yes Instructions: Cystitis Interstitial Prescriptions: dexAMETHasone [Decadron] 4 mg PO DAILY #5 tablet Fluconazole [Diflucan] 150 mg PO Q3D #2 tablet Promethazine [Phenergan] 25 mg PO Q6H PRN #15 tab PRN Reason: Nausea / Vomiting Phenazopyridine HCl [Pyridium] 100 mg PO TID PRN #15 tablet PRN Reason: Abdominal Pain Comments: No signs of urinary tract infection at this time. No kidney stones in the ureters (one small one in the left kidney but would not be giving symptoms there). The vaginal swab for vaginitis will result in a day or so; we will call you if we need to add medication based on that. We can give you some Diflucan for presumed yeast vaginitis. Otherwise your symptoms sound likely to be interstitial cystitis perhaps as you have had in the past. Use the Decadron anti-inflammatory and phenazopyridine for the inflammation and discomfort. Stay well-hydrated. Recheck if not improved well over the next few days. Add Tylenol if needed for pains. Discharge Date/Time: 06/28/20 00:43
[2020-06-27] MEDS ORDERED: LORazepam 2 MG/ML VIAL IVP STA (21:58)
[2020-06-27] MEDS ORDERED: SODIUM CHLORIDE 0.9% 1,000 ML IV STA (21:58)
[2020-06-27 22:03] LABS: BASOPHILS % (AUTO) 0.3 %; EOSINOPHILS # (AUTO) 0.1 10^3/uL (0.0-0.7); EOSINOPHILS % (AUTO) 0.9 %; HCT - HEMATOCRIT 39.9 % (37.0-47.0); HGB - HEMOGLOBIN 13.4 g/dL (12.0-16.0); LYMPHOCYTES % (AUTO) 30.9 %; MEAN CORPUSCULAR HEMOGLOBIN 28.8 pg (27.0-31.0); MEAN CORPUSCULAR HGB CONC 33.6 g/dL (32.0-36.0); MEAN CORPUSCULAR VOLUME 85.6 fL (81.0-99.0); MEAN PLATELET VOLUME 8.5 fL (7.9-10.8); MONOCYTES # (AUTO) 0.3 10^3/uL (0.0-1.0); MONOCYTES % (AUTO) 4.5 %; NEUTROPHILS % (AUTO) 62.8 %; PLT - PLATELET COUNT 199 10^3/uL (130-450); RED BLOOD COUNT 4.66 10^6/uL (4.20-5.40); RED CELL DISTRIBUTION WIDTH 12.9 % (12.0-15.0); WHITE BLOOD COUNT 6.4 x10^3/uL (4.8-10.8)
[2020-06-27 22:19] LABS: ALBUMIN 4.2 g/dL (3.2-5.5); ALBUMIN/GLOBULIN RATIO 1.3 (1.0-2.2); BILIRUBIN,TOTAL 0.6 mg/dL (0.2-1.0); CALCIUM 9.2 mg/dL (8.5-10.3); CREATININE 0.5 mg/dL (0.4-1.0); MAGNESIUM 1.8 mg/dL (1.7-2.8); POTASSIUM 3.7 mmol/L (3.5-5.0); TOTAL PROTEIN 7.4 g/dL (6.7-8.2)
[2020-06-27 22:41] LABS: BILIRUBIN,URINE NEGATIVE (NEGATIVE); GLUCOSE, URINE (UA) NEGATIVE (NEGATIVE); KETONES,URINE (UA) TRACE mg/dL (NEGATIVE); LEUKOCYTE ESTERASE, URINE TRACE (NEGATIVE); NITRITE,URINE NEGATIVE (NEGATIVE); OCCULT BLOOD,URINE NEGATIVE (NEGATIVE); PH,URINE 7.5 PH (5.0-7.5); PROTEIN,URINE NEGATIVE (NEGATIVE); UROBILINOGEN,URINE 0.2 (NORMAL) E.U./dL (NORMAL)
[2020-06-27 22:43] LABS: CLARITY,URINE HAZY (CLEAR)
[2020-06-27 22:44] LABS: HCG UR QUAL NEGATIVE
[2020-06-27 22:47] LABS: BACTERIA,URINE Many /HPF (None Seen); RBC,URINE 0-5 /HPF (0-5); SQUAMOUS EPITHELIAL CELL,UR MANY Squamous (<= Few)
[2020-06-27] MEDS ORDERED: PROCHLORPERAZINE 10 MG/2 ML VIAL IVP STA (23:40)
[2020-06-27] MEDS ORDERED: PHENAZOPYRIDINE 100 MG TABLET PO STA (23:40)
[2020-06-27] MEDS ORDERED: DEXAMETHASONE 10 MG/ML VIAL IVP STA (23:40)
[2020-06-27] MEDS ORDERED: KETOROLAC 15 MG/ML VIAL IVP STA (23:43)
[2020-06-28 00:51] VITALS: BP 112/72
--- NOTE | 2020-06-28 08:41 | CT Report ---
PROCEDURE: Abdomen/Pelvis WO INDICATIONS: left flank pain abrupt today TECHNIQUE: Noncontrast 5 mm thick sections acquired from the diaphragms to the symphysis. 5 mm coronal and sagi ttal reformats were then performed. For radiation dose reduction, the following was used: automated exposure control, adjustment of mA and/or kV according to patient size. COMPARISON: 12/24/2019 CT abdomen/pelvis. FINDINGS: Image quality: Excellent. ABDOMEN: Lung bases: Lung bases are clear. Heart size is normal. Solid organs: Liver is enlarged at 25 cm craniocaudad, and spleen is normal in size. The liver appe ars relatively low in radiodensity, consistent with hepatic steatosis. Gallbladder is free of inflamm ation or calcified gallstone. Pancreas is normal in contours. No adrenal nodules. Kidneys are norm al in size, without hydronephrosis or nephrolithiasis. Peritoneum and bowel: Unenhanced bowel loops demonstrate normal wall thickness and caliber. No free fluid or air. Nodes and vessels: No retroperitoneal or mesenteric adenopathy by size criteria. Aorta and inferior vena cava are normal in caliber. Miscellaneous: No ventral hernias. PELVIS: Genitourinary: Bladder wall thickness is normal. Miscellaneous: No inguinal hernias or adenopathy. There is a small amount of radiodensity within th e stool at the cecum, and a similar appearance within several portions of the contiguous appendix, wi thout associated fluid distention or periappendiceal edema. Several pelvic phleboliths are present, a lso seen on prior CT scanning from 12/24/2019, and no urinary tract stone is found. What appears to be an abandoned lead from the posterior right superficial flank region is present tracking inferiorly b ut not extending towards the bladder. Bones: No suspicious bony lesions. No vertebral body compression fractures. IMPRESSION: A definite source of left-sided flank pain is not found. No urinary tract stone or musculoskeletal et iology of this symptom is identified. Note is made of a right buttock superficial subcutaneous lead t hat extends through the right neural foramen of S1, without control device. Presumed abandoned lead. Hepatomegaly with hepatic steatosis. Splenomegaly or ascites is not found. Reviewed by: Grant Edwards MD on 06/28/2020 8:39 AM PDT Approved by: Grant Edwards MD on 06/28/2020 8:39 AM PDT Station ID: [id number]
--- OUTSIDE RECORDS SUMMARY | 2020-06-30 02:49 | EXTERNAL MEDICAL SUMMARY RPT | Continuity of Care Document ---
:1980 Demographics Phone Unavailable Preferred Language Unknown Marital Status Unknown Ep[employer]opalian Affiliation Unknown Race Unknown Ethnic Group Unknown Author Organization [facility] Address [address] [place] [address] Phone Social History date description facility [phone]
== END 2020-06-28 00:43 | disposition home or self-care (01) ==
LOC: EDUNIT# → ED 21:27
DX: B37.3 Candidiasis of vulva and vagina (principal); R10.9 Unspecified abdominal pain; R30.0 Dysuria; N30.10 Interstitial cystitis (chronic) without hematuria; N20.0 Calculus of kidney; K76.0 Fatty (change of) liver, not elsewhere classified
CPT/HCPCS: 36415; 74176; 80053; 81001; 81025; 83690; 83735; 85025; 96361; 96374; 96375; 99284; 99285; A9270; J2060; 81003; 87086; 87661; 87801

== ENCOUNTER 2020-08-02 12:28 | Outpatient (CLI) | payer OTHER | END 2020-08-02 12:29 | disposition critical access hospital (66) | LOC: EMS 12:28 | DX: R55 Syncope and collapse (principal); R51.9 Headache, unspecified; R11.2 Nausea with vomiting, unspecified | CPT/HCPCS: A0425; A0429 ==

== ENCOUNTER 2020-08-02 12:45 | Emergency (ER) | payer OTHER ==
[2020-08-02] MEDS ORDERED: SODIUM CHLORIDE 0.9% 1,000 ML IV STA ×2 (13:07→13:08)
[2020-08-02] MEDS ORDERED: ONDANSETRON 4 MG/2 ML VIAL IVP STA (13:07)
[2020-08-02] MEDS ORDERED: HYDROmorphone 1 MG/ML CARPUJECT IVP STA (13:07)
[2020-08-02] MEDS ORDERED: IOPAMIDOL-300 100 ML VIAL ONE (13:12)
--- NOTE | 2020-08-02 13:12 | ED Physician Documentation ---
History of Present Illness - Stated complaint Stated Complaint: N/V/D - Chief complaint Chief Complaint: General - Additonal information Additional information: 39-year-old female presents to the emergency department for evaluation of uncontrolled nausea vomiting diarrhea and dysuria. Symptoms began on Sunday. She reports that she is so dehydrated that she fainted this morning and struck her head on a counter. She arrives here via EMS with a neck collar in place. Review of Systems Constitutional: reports: Chills. denies: Fever Eyes: reports: Reviewed and negative Ears: reports: Reviewed and negative Nose: reports: Reviewed and negative Throat: reports: Reviewed and negative Cardiac: denies: Chest pain / pressure Respiratory: denies: Dyspnea, Cough GI: reports: Abdominal Pain, Nausea, Vomiting, Diarrhea : reports: Dysuria. 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 : Chronic bladder infection, Kidney stones, Other HEENT: None Psych: Depression, Anxiety, Bipolar disorder, Panic attacks, ADD/ADHD, Post traumatic stress disorder Musculoskeletal: Fibromyalgia, Chronic back pain Derm: None - Past Surgical History Past Surgical History: Yes Ortho: Spine surgery, Other /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: section, Hysterectomy, Oophrectomy, Other HEENT: Tonsil/Adenoidectomy - Present Medications Home Medications: Ambulatory Orders Medication Instructions Recorded Confirmed Alprazolam [Xanax] 2 mg PO BID PRN 10/29/14 08/02/20 Estrogens, Conjugated [Premarin] 0.9 mg PO DAILY 01/17/18 08/02/20 Duloxetine HCl 30 mg PO TID 04/16/19 08/02/20 Nitrofurantoin [Macrobid] 100 mg PO DAILY 05/04/20 08/02/20 Pantoprazole [Protonix] 40 mg PO DAILY 05/04/20 08/02/20 lamoTRIgine [LaMICtal] 150 mg PO BID 05/04/20 08/02/20 Phenazopyridine HCl [Pyridium] 100 mg PO TID PRN #15 tablet 06/28/20 08/02/20 Prochlorperazine Maleate 10 mg PO Q4HR PRN #10 tab 08/02/20 [Compazine] - Allergies Allergies/Adverse Reactions: Allergies Allergy/AdvReac Type Severity Reaction Status Date / Time sulfamethoxazole Allergy Severe Hives Verified 08/02/20 13:02 [From Bactrim] trimethoprim [From Bactrim] Allergy Severe Hives Verified 08/02/20 13:02 azithromycin [From Zithromax] Allergy Anaphylaxis Verified 08/02/20 13:02 - Social History Does the pt smoke?: No Smoking Status: Never smoker Does the pt drink ETOH?: Yes Does the pt have substance abuse?: No - Immunizations Immunizations are current?: Yes - POLST Patient has POLST: No POLST Status: Full Code PD ED PE EXPANDED - General General: In distress, Other (obese) - Neck Neck: Supple w/out meningeal sx, Bony TTP (tenderness midline upepr cervical spine), Limited ROM - Cardiac Cardiac: Tachy, Radial strong equal, Pedal strong equal, Cap refill < 2 sec - Respiratory Respiratory: Clear to ausultation vernon. No: Distress, Labored - Abdomen Abdomen: Normal Bowel sounds, Tender to palpation, Rebound, Guarding (RLQ and CVA) - Derm Derm: Normal color, Warm and dry, Abrasion (s) (right forehead) - Extremities Extremities: Normal. No: Deformity, Tenderness - Neuro Neuro: Alert and Oriented X 3, CNII-XII intact - GCS Eye Opening: Spontaneous Motor: Obeys Commands Verbal: Oriented Total: 15 Results - Vitals Vitals: Vital Signs - 24 hr 08/02/20 08/02/20 08/02/20 12:58 14:16 14:38 Temperature 36.3 C L Heart Rate 123 H 123 H 120 H Respiratory 20 16 22 Rate Blood Pressure 125/74 130/96 H 143/99 H O2 Saturation 96 97 98 08/02/20 08/02/20 14:48 15:39 Temperature Heart Rate 114 H 113 H Respiratory 16 16 Rate Blood Pressure 128/67 O2 Saturation 100 96 Oxygen O2 Source Room air - Labs Labs: Laboratory Tests 08/02/20 08/02/20 13:40 13:40 WBC 5.2 RBC 4.91 Hgb 14.1 Hct 42.6 MCV 86.8 MCH 28.7 MCHC 33.1 RDW 13.2 Plt Count 182 MPV 8.8 Neut # (Auto) 4.0 Lymph # (Auto) 0.8 [place] # (Auto) 0.3 Eos # (Auto) 0.1 Baso # (Auto) 0.0 Absolute Nucleated RBC 0.00 Nucleated RBC % 0.0 Sodium 139 Potassium 3.7 Chloride 102 Carbon Dioxide 25 Anion Gap 12.0 BUN 12 Creatinine 0.5 Estimated GFR (MDRD) 138 Glucose 141 H Calcium 9.5 Total Bilirubin 0.8 AST 118 H ALT 74 H Alkaline Phosphatase 86 Total Protein 7.6 Albumin 4.3 Globulin 3.3 Albumin/Globulin Ratio 1.3 Lipase 29 - Rads (name of study) Cervical CT Radiology: Final report received (No fracture within limitations of study related to body habitus.) CT abd/pelvis w Radiology: Final report received (Liver enlarged measuring up to 27 then centimeters craniocaudal and likely fatty infiltrated throughout. No urinary tract stone is seen several pelvic phleboliths are present near the course of the distal ureter bilaterally.) PD MEDICAL DECISION MAKING - ED course Complexity details: reviewed results, re-evaluated patient, d/w patient ED course: 39-year-old female presents the emergency department with 3 days of uncontrolled nausea vomiting and diarrhea. She felt so dehydrated that she syncopized this morning striking her head and arrived here via EMS with a neck collar in place.. She was given 2 L of IV fluid as well as Compazine and Dilaudid for her discomfort. Following the 2 L of fluid she is markedly improved. She is now tolerating sips of clear liquids. We have not been able to get a urinary sample from her but she denies dysuria urgency or frequency. CT of her cervical spine was negative therefore the collar was discontinued. Abdomen pelvis CT reveals fairly large hepatomegaly but no other acute findings. Hepatomegaly was discussed with patient. She likely is developing Almodovar. She has advised follow-up with primary care doctor to get referral to a outpatient dietitian. I will prescribe some Compazine to help with nausea and vomiting at home. I suspect her symptoms are likely a viral gastroenteritis given no surgical findings on CT scan. Emergent return precautions discussed. Departure - Departure Disposition: 01 Home, Self Care Clinical Impression: Hepatomegaly Nausea and vomiting Qualifiers: Vomiting type: unspecified Vomiting Intractability: non-intractable Qualified Code(s): R11.2 - Nausea with vomiting, unspecified Diarrhea Qualifiers: Diarrhea type: unspecified type Qualified Code(s): R19.7 - Diarrhea, unspecified Condition: Stable Record reviewed to determine appropriate education?: Yes Prescriptions: Prochlorperazine Maleate [Compazine] 10 mg PO Q4HR PRN #10 tab PRN Reason: Nausea / Vomiting Comments: Series seen in the emergency department today for a number of days of nausea vomiting and diarrhea. Your screening labs did not reveal any worrisome findings however the CT scan shows a fairly enlarged liver. You are likely developing a condition called fatty liver. Given the size of your liver you should be referred to a outpatient dietitian for further evaluation. Please discuss this ED visit with your primary care doctor to obtain that referral. To help with your symptoms at home I have prescribed some Compazine. I encourage you to drink frequent sips of liquids. Return to the emergency department if you again have a return of worsening symptoms
[2020-08-02 13:48] LABS: BASOPHILS % (AUTO) 0.2 %; EOSINOPHILS # (AUTO) 0.1 10^3/uL (0.0-0.7); EOSINOPHILS % (AUTO) 1.5 %; HCT - HEMATOCRIT 42.6 % (37.0-47.0); HGB - HEMOGLOBIN 14.1 g/dL (12.0-16.0); LYMPHOCYTES # (AUTO) 0.8 10^3/uL (1.5-3.5); LYMPHOCYTES % (AUTO) 15.4 %; MEAN CORPUSCULAR HEMOGLOBIN 28.7 pg (27.0-31.0); MEAN CORPUSCULAR HGB CONC 33.1 g/dL (32.0-36.0); MEAN CORPUSCULAR VOLUME 86.8 fL (81.0-99.0); MEAN PLATELET VOLUME 8.8 fL (7.9-10.8); MONOCYTES # (AUTO) 0.3 10^3/uL (0.0-1.0); NEUTROPHILS % (AUTO) 77.1 %; PLT - PLATELET COUNT 182 10^3/uL (130-450); RED BLOOD COUNT 4.91 10^6/uL (4.20-5.40); RED CELL DISTRIBUTION WIDTH 13.2 % (12.0-15.0); WHITE BLOOD COUNT 5.2 x10^3/uL (4.8-10.8)
[2020-08-02 14:03] LABS: ALBUMIN 4.3 g/dL (3.2-5.5); ALBUMIN/GLOBULIN RATIO 1.3 (1.0-2.2); BILIRUBIN,TOTAL 0.8 mg/dL (0.2-1.0); CALCIUM 9.5 mg/dL (8.5-10.3); CREATININE 0.5 mg/dL (0.4-1.0); POTASSIUM 3.7 mmol/L (3.5-5.0); TOTAL PROTEIN 7.6 g/dL (6.7-8.2)
--- NOTE | 2020-08-02 14:58 | CT Report ---
PROCEDURE: Abdomen/Pelvis W INDICATIONS: dysuria, right flank pain, vomiting and syncope CONTRAST: IV CONTRAST: Isovue 300 ml: 100 PO CONTRAST: *NO PO CONTRAST TECHNIQUE: After the administration of nonionic contrast, 5 mm thick sections acquired from the diaphragms to th e symphysis. 5 mm thick coronal and sagittal reformats were acquired. For radiation dose reduction, the following was used: automated exposure control, adjustment of mA and/or kV according to patient size. COMPARISON: Similar CT 06/27/2020. FINDINGS: Image quality: Excellent. ABDOMEN: Lung bases: Lung bases are clear. Heart size is normal. Solid organs: Liver and spleen are asymmetric in size (enlarged at the liver up to 27 centimeters) a nd both normal in enhancement. Gallbladder appears normal Biliary system is non dilated. Pancreas enhances normally. No adrenal nodules. Kidneys demonstrate normal size and enhancement, without hyd ronephrosis. Peritoneum and bowel: Bowel loops demonstrate normal wall thickness and caliber. No free fluid or a ir. Nodes and vessels: No retroperitoneal or mesenteric adenopathy by size criteria. Aorta and inferior vena cava are normal in size. Miscellaneous: No ventral hernias. PELVIS: Genitourinary: Bladder wall thickness is normal. Miscellaneous: No inguinal hernias or adenopathy. Bones: No suspicious bony lesions. No vertebral body compression fractures. IMPRESSION: The liver is again seen to be enlarged measuring up to 27 cm craniocaudad and likely fatty infiltrate d throughout. No urinary tract stone is seen. Several pelvic phleboliths are present near the course of the distal ureter bilaterally, but this is not associated with ureteral dilatation. The bladder appears normal. Reviewed by: Grant Edwards MD on 08/02/2020 2:57 PM PDT Approved by: Grant Edwards MD on 08/02/2020 2:57 PM PDT Station ID: [id number]
--- NOTE | 2020-08-02 15:03 | CT Report ---
PROCEDURE: CERVICAL SPINE WO INDICATIONS: neck pain after syncope TECHNIQUE: Noncontrast 3 mm thick sections acquired from the skull base to the T4 level. Sagittal and coronal r eformats were then constructed. For radiation dose reduction, the following was used: automated exp osure control, adjustment of mA and/or kV according to patient size. COMPARISON: None. FINDINGS: Image quality: Degraded by patient body habitus. Bones: No cervical spine fractures or dislocations. Visualized superior ribs are intact. Soft tissues: Prevertebral soft tissues are normal in thickness. No paravertebral hematomas. No ap ical pneumothoraces. IMPRESSION: No fracture within limitations of the study related to body habitus. No acute osseous lesion. If ther e is continued clinical concern for pathology, then MRI should be considered for further evaluation. Reviewed by: María Lemus MD, PhD on 08/02/2020 3:01 PM PDT Approved by: María Lemus MD, PhD on 08/02/2020 3:01 PM PDT Station ID: [id number]
[2020-08-02] MEDS ORDERED: PROCHLORPERAZINE 10 MG/2 ML VIAL IVP STA (15:08)
[2020-08-02] MEDS ORDERED: KETOROLAC 60 MG/2 ML VIAL IM STA (15:27)
[2020-08-02] MEDS ORDERED: HYDROmorphone 2 MG/ML VIAL IVP STA (15:27)
[2020-08-02] MEDS ORDERED: IOPAMIDOL-300 100 ML VIAL IVP ONE (15:35)
[2020-08-02 15:40] VITALS: BP 128/67
== END 2020-08-02 16:48 | disposition home or self-care (01) ==
LOC: EDUNIT# → ED 12:45
DX: R11.2 Nausea with vomiting, unspecified (principal); R19.7 Diarrhea, unspecified; R16.0 Hepatomegaly, not elsewhere classified; R55 Syncope and collapse; M54.2 Cervicalgia; S00.81XA Abrasion of other part of head, initial encounter; W18.30XA Fall on same level, unspecified, initial encounter; W22.09XA Striking against other stationary object, initial encounter
CPT/HCPCS: 36415; 72125; 74177; 80053; 83690; 85025; 96361; 96374; 96375; 96376; 99284; J1170; Q9967

== ENCOUNTER 2020-09-12 01:37 | Emergency (ER) | payer OTHER ==
--- NOTE | 2020-09-12 01:44 | ED Physician Documentation ---
History of Present Illness - Stated complaint Stated Complaint: CHEST BURNING/SOA/ELIZONDO/NAUSEA - History obtained from History obtained from: Patient - History of Present Illness Timing: Other (today ( arm), 2-3 days (chest discomfort)) Pain level now: 8 Improved by: rest (arm), nothing (chest discomfort) Worsened by: movement, palpation (arm), nothing (chest discomfort) - Additonal information Additional information: Patient has two separate chief complaints. 1) patient states she tripped and fell at home earlier this evening onto left outstretched arm, complains of sudden onset and gradually worsening left forearm swelling and pain. Patients right hand dominant. 2) patient also states she has had 2 to 3 days of left-sided chest pain described as burning, radiates to the left shoulder. She has mild dyspnea. She denies cough, she denies fever. She also complains of dizziness, fatigue. patient has had 85 visits to this emergency department on record; many previous visits have been for chest pain. some visits also reflect left shoulder and LUE pain c/o including LUE injury. patient says she has a h/o PE but not currently on blood thinners Review of Systems Constitutional: reports: Reviewed and negative Cardiac: reports: Chest pain / pressure. denies: Palpitations, Pedal edema, Calf pain Respiratory: reports: Dyspnea, Cough. 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 : Chronic bladder infection, Kidney stones, Other HEENT: None Psych: Depression, Anxiety, Bipolar disorder, Panic attacks, ADD/ADHD, Post traumatic stress disorder Musculoskeletal: Fibromyalgia, Chronic back pain Derm: None - Past Surgical History Past Surgical History: Yes Ortho: Spine surgery, 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: 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, Hysterectomy, Oophrectomy, Other HEENT: Tonsil/Adenoidectomy - Present Medications Home Medications: Ambulatory Orders Medication Instructions Recorded Confirmed Alprazolam [Xanax] 2 mg PO BID PRN 10/29/14 08/02/20 Estrogens, Conjugated [Premarin] 0.9 mg PO DAILY 01/17/18 08/02/20 Duloxetine HCl 30 mg PO TID 04/16/19 08/02/20 Nitrofurantoin [Macrobid] 100 mg PO DAILY 05/04/20 08/02/20 Pantoprazole [Protonix] 40 mg PO DAILY 05/04/20 08/02/20 lamoTRIgine [LaMICtal] 150 mg PO BID 05/04/20 08/02/20 Phenazopyridine HCl [Pyridium] 100 mg PO TID PRN #15 tablet 06/28/20 08/02/20 Prochlorperazine Maleate 10 mg PO Q4HR PRN #10 tab 08/02/20 [Compazine] Ketorolac [Toradol] 10 mg PO Q6H PRN #14 tablet 09/12/20 - Allergies Allergies/Adverse Reactions: Allergies Allergy/AdvReac Type Severity Reaction Status Date / Time sulfamethoxazole Allergy Severe Hives Verified 09/12/20 02:04 [From Bactrim] trimethoprim [From Bactrim] Allergy Severe Hives Verified 09/12/20 02:04 azithromycin [From Zithromax] Allergy Anaphylaxis Verified 09/12/20 02:04 - Social History Does the pt smoke?: No Smoking Status: Never smoker Does the pt drink ETOH?: Yes Does the pt have substance abuse?: No - Immunizations Immunizations are current?: Yes - POLST Patient has POLST: No POLST Status: Full Code PD ED PE NORMAL - Vitals Vital signs reviewed: Yes - General General: Alert and oriented X 3, No acute distress, Other (overweight female in NAD) - HEENT HEENT: Moist mucous membranes - Cardiac Cardiac: RRR, No murmur, No gallop, No rub - Respiratory Respiratory: No respiratory distress, Clear bilaterally - Abdomen Abdomen: Soft, Non tender - Derm Derm: Normal color, Warm and dry PD ED PE EXPANDED - Extremities Extremities: Tenderness, Limited ROM, Swelling, Abrasion, Left forearm, Sensory intact, Vascular intact ISABELLA UE/Hands Visual: 1 - abrasion, swelling, tenderness Results - Vitals Vitals: Oxygen O2 Source Room air - EKG (time done) No standard instances Rate: Rate (enter#) (119), Tachy Rhythm: Sinus tachycardia [place]: Normal Intervals: Normal MO QRS: Normal Ischemia: Normal ST segments - Labs Labs: Laboratory Tests 09/12/20 09/12/20 09/12/20 02:54 02:54 02:54 WBC 7.7 RBC 4.62 Hgb 13.2 Hct 39.6 MCV 85.7 MCH 28.6 MCHC 33.3 RDW 13.2 Plt Count 216 MPV 8.8 Neut # (Auto) 4.7 Lymph # (Auto) 2.3 Divide # (Auto) 0.4 Eos # (Auto) 0.2 Baso # (Auto) 0.0 Absolute Nucleated RBC 0.00 Nucleated RBC % 0.0 Sodium 138 Potassium 3.9 Chloride 100 L Carbon Dioxide 25 Anion Gap 13.0 BUN 10 Creatinine 0.5 Estimated GFR (MDRD) 138 Glucose 160 H Calcium 9.5 Total Bilirubin 0.7 AST 111 H ALT 71 H Alkaline Phosphatase 82 Troponin I High Sens Total Protein 8.1 Albumin 4.4 Globulin 3.7 Albumin/Globulin Ratio 1.2 Lipase 25 Nasal Adenovirus (PCR) NOT DETECTED Nasal B. parapertussis DNA (PCR) NOT DETECTED Nasal Coronavir 229E PCR NOT DETECTED Nasal Coronavir HKU1 PCR NOT DETECTED Nasal Coronavir NL63 PCR NOT DETECTED Nasal Coronavir OC43 PCR NOT DETECTED Nasal Enterovir/Rhinovir PCR NOT DETECTED Nasal Influenza B PCR NOT DETECTED Nasal Influenza A PCR NOT DETECTED Nasal Parainfluen 1 PCR NOT DETECTED Nasal Parainfluen 2 PCR NOT DETECTED Nasal Parainfluen 3 PCR NOT DETECTED Nasal Parainfluen 4 PCR NOT DETECTED Nasal RSV (PCR) NOT DETECTED Nasal B.pertussis DNA PCR NOT DETECTED Nasal C.pneumoniae (PCR) NOT DETECTED Feng Human Metapneumo PCR NOT DETECTED Nasal M.pneumoniae (PCR) NOT DETECTED Nasal SARS-CoV-2 (PCR) NOT DETECTED 09/12/20 04:16 WBC RBC Hgb Hct MCV MCH MCHC RDW Plt Count MPV Neut # (Auto) Lymph # (Auto) Divide # (Auto) Eos # (Auto) Baso # (Auto) Absolute Nucleated RBC Nucleated RBC % Sodium Potassium Chloride Carbon Dioxide Anion Gap BUN Creatinine Estimated GFR (MDRD) Glucose Calcium Total Bilirubin AST ALT Alkaline Phosphatase Troponin I High Sens 2.9 Total Protein Albumin Globulin Albumin/Globulin Ratio Lipase Nasal Adenovirus (PCR) Nasal B. parapertussis DNA (PCR) Nasal Coronavir 229E PCR Nasal Coronavir HKU1 PCR Nasal Coronavir NL63 PCR Nasal Coronavir OC43 PCR Nasal Enterovir/Rhinovir PCR Nasal Influenza B PCR Nasal Influenza A PCR Nasal Parainfluen 1 PCR Nasal Parainfluen 2 PCR Nasal Parainfluen 3 PCR Nasal Parainfluen 4 PCR Nasal RSV (PCR) Nasal B.pertussis DNA PCR Nasal C.pneumoniae (PCR) Feng Human Metapneumo PCR Nasal M.pneumoniae (PCR) Nasal SARS-CoV-2 (PCR) - Rads (name of study) left FA xrays Radiology: Prelim report reviewed, See rad report CT chest angio Radiology: Prelim report reviewed, See rad report CXR Radiology: Prelim report reviewed, See rad report PD MEDICAL DECISION MAKING - ED course Complexity details: reviewed old records, reviewed results, re-evaluated patient, considered differential, d/w patient ED course: no acute findings on left forearm plain film x-rays. a work-up is also undertaken for her other complaints of chest pain, fatigue, dizziness, shortness of breath. Her EKG is unremarkable and there are no significant, contributory findings on blood tests. Incidental note of mildly elevated transaminases is noted, although this is not a new finding and has been recently d/w patient. her chest x-ray is also unremarkable. Respiratory PCR test comes back negative. she requests something for pain and I offered to give Toradol. She then says she also has nausea and requests Compazine. I was comfortable giving Compazine. Patient has tachycardia for the earlier part of her ED stay. Combined with chest pain, and history PE, CT chest angio is heavily considered. my initial plan, which I discussed with the patient, was to hold off on performing CT chest becau se she has had a concerning number of radiation-involved studies over her several dozen ED visits. Also considered was that many of her visits have involved chest pain with tachycardia, but with unremarkable test results. Unfortunately, when patient was having her chest x-ray performed, she had a sy ncopal episode with up to 30 seconds of unresponsiveness per the accessibility lift technician. A code blue was called, and ED nurses and myself responded rapidly. By the time I was at the patients side, she was awake, alert, and responding. She had strong peripheral pulses and regular rate and rhythm on cardiac auscultation. she was brought back to the emergency department. Subsequently, CT chest angiography was undertaken in light of this syncopal episode. The CT chest angio is unremarkable for acute findings including no evidence of pulmonary embolism. Patient insists she passed out because of the pain in her forearm and she again requests pain medication, specifically Dilaudid. She is given a half milligram of Dilaudid and reports excellent pain relief with this. She is eventually discharged from the emergency department in NAD and stable and normal vital signs (tachycardia resolved) Departure - Departure Disposition: 01 Home, Self Care Clinical Impression: Syncope Qualifiers: Syncope type: unspecified Qualified Code(s): R55 - Syncope and collapse Forearm contusion Qualifiers: Encounter type: initial encounter Laterality: left Qualified Code(s): S50.12XA - Contusion of left forearm, initial encounter Chest pain Qualifiers: Chest pain type: unspecified Qualified Code(s): R07.9 - Chest pain, unspecified Condition: Good Instructions: ED Contusion Upper Ext, ED Chest Pain Pleurisy, ED Fainting Unkn Cause Follow-Up: KRISTYN PIMENTEL MD [Primary Care Provider] - Prescriptions: Ketorolac [Toradol] 10 mg PO Q6H PRN #14 tablet PRN Reason: Pain Discharge Date/Time: 09/12/20 06:22
[2020-09-12] MEDS ORDERED: PROCHLORPERAZINE 10 MG/2 ML VIAL IVP STA (02:50)
[2020-09-12] MEDS ORDERED: KETOROLAC 30 MG/ML VIAL IVP STA (02:50)
[2020-09-12] MEDS ORDERED: SODIUM CHLORIDE 0.9% 1,000 ML IV STA (02:51)
[2020-09-12 03:00] LABS: BASOPHILS % (AUTO) 0.1 %; EOSINOPHILS # (AUTO) 0.2 10^3/uL (0.0-0.7); EOSINOPHILS % (AUTO) 2.1 %; HCT - HEMATOCRIT 39.6 % (37.0-47.0); HGB - HEMOGLOBIN 13.2 g/dL (12.0-16.0); LYMPHOCYTES # (AUTO) 2.3 10^3/uL (1.5-3.5); LYMPHOCYTES % (AUTO) 30.3 %; MEAN CORPUSCULAR HEMOGLOBIN 28.6 pg (27.0-31.0); MEAN CORPUSCULAR HGB CONC 33.3 g/dL (32.0-36.0); MEAN CORPUSCULAR VOLUME 85.7 fL (81.0-99.0); MEAN PLATELET VOLUME 8.8 fL (7.9-10.8); MONOCYTES # (AUTO) 0.4 10^3/uL (0.0-1.0); MONOCYTES % (AUTO) 5.3 %; NEUTROPHILS # (AUTO) 4.7 10^3/uL (1.5-6.6); NEUTROPHILS % (AUTO) 60.9 %; PLT - PLATELET COUNT 216 10^3/uL (130-450); RED BLOOD COUNT 4.62 10^6/uL (4.20-5.40); RED CELL DISTRIBUTION WIDTH 13.2 % (12.0-15.0); WHITE BLOOD COUNT 7.7 x10^3/uL (4.8-10.8)
[2020-09-12 03:15] LABS: ALBUMIN 4.4 g/dL (3.2-5.5); ALBUMIN/GLOBULIN RATIO 1.2 (1.0-2.2); BILIRUBIN,TOTAL 0.7 mg/dL (0.2-1.0); CALCIUM 9.5 mg/dL (8.5-10.3); CREATININE 0.5 mg/dL (0.4-1.0); POTASSIUM 3.9 mmol/L (3.5-5.0); TOTAL PROTEIN 8.1 g/dL (6.7-8.2)
[2020-09-12] MEDS ORDERED: HYDROmorphone 1 MG/ML CARPUJECT IVP STA (03:37)
[2020-09-12] MEDS ORDERED: IOVERSOL 320 100 ML VIAL IVP ONE ×3 (03:37→07:01)
[2020-09-12 03:57] LABS: B. PARAPERTUSSIS- RESP PCR PAN NOT DETECTED; B. PERTUSSIS- RESP PCR PANEL NOT DETECTED; C. PNEUMONIAE- RESP PCR PANEL NOT DETECTED; CORONAVIRUS 229E-RESP PCR NOT DETECTED; CORONAVIRUS HKU1-RESP PCR NOT DETECTED; CORONAVIRUS NL63-RESP PCR NOT DETECTED; CORONAVIRUS OC43-RESP PCR NOT DETECTED; HUMAN METAPNEUMOVIRUS NOT DETECTED; INFLUENZA A- RESP PCR PANEL NOT DETECTED; INFLUENZA B - RESP PCR PANEL NOT DETECTED; M. PNEUMONIAE- RESP PCR PANEL NOT DETECTED; PARAINFLUENZA VIRUS 1 NOT DETECTED; PARAINFLUENZA VIRUS 2 NOT DETECTED; PARAINFLUENZA VIRUS 3 NOT DETECTED; PARAINFLUENZA VIRUS 4 NOT DETECTED; RHINOVIRUS/ENTEROVIRUS NOT DETECTED; RSV- RESP PCR PANEL NOT DETECTED; SARS-CoV-2 -RESP PCR PANEL NOT DETECTED
[2020-09-12 06:21] VITALS: BP 103/84
--- NOTE | 2020-09-12 08:25 | XRAY Report ---
PROCEDURE: Forearm LT INDICATIONS: L FA injury from fall TECHNIQUE: 2 views of the forearm were acquired. COMPARISON: None FINDINGS: Bones: No fractures or dislocations. No suspicious bony lesions. Soft tissues: No suspicious soft tissue calcifications or masses. IMPRESSION: No evidence acute bony abnormality of the left forearm. A preliminary report with the above findings was provided at the time of the study by [facility]. Reviewed by: Jose Ramon MD on 09/12/2020 7:23 AM JIM Approved by: Jose Ramon MD on 09/12/2020 7:23 AM JIM Station ID: [id number]
--- NOTE | 2020-09-12 08:27 | XRAY Report ---
PROCEDURE: Chest 2 View X-Ray INDICATIONS: cough, dyspnea TECHNIQUE: 2 view(s) of the chest. COMPARISON: 12/11/2019 FINDINGS: Surgical changes and devices: None. Lungs and pleura: There is a pulmonary nodule seen on the lateral view at the posterior aspect of th e thoracic vertebral bodies, at approximately the inferior aspect of T6. No pleural effusions or pneu mothorax. Lungs are clear. Mediastinum: Mediastinal contours are normal. Heart size is normal. Bones and chest wall: No suspicious bony abnormalities. Soft tissues appear unremarkable. IMPRESSION: 1. Pulmonary nodule seen on lateral view at the posterior aspect of approximately T6. 2. No evidence acute pulmonary process. A preliminary report with the above findings was provided at the time of the study by [facility]. Reviewed by: Jose Ramon MD on 09/12/2020 7:26 AM JIM Approved by: Jose Ramon MD on 09/12/2020 7:26 AM JIM Station ID: [id number]
--- NOTE | 2020-09-12 09:10 | ED Physician Documentation ---
ED Addendum - Addendum Addendum: 09/12/20 09:[address] Ramon, radiologist who was reviewing the imaging for this patient seen overnight. He requested her phone number in order to contact her because she has a pulmonary nodule which has grown and we want her to be aware of that. He will call me back if he is unable to get in touch with the patient.
--- NOTE | 2020-09-12 10:07 | CT Report ---
PROCEDURE: ANGIO CHEST W/WO INDICATIONS: chest pain, syncope, tachycardia CONTRAST: IV CONTRAST: Optiray 320 ml: 80 PO CONTRAST: *NO PO CONTRAST TECHNIQUE: After the administration of intravenous contrast, 2 mm thick sections acquired from the pulmonary api nikia to the posterior costophrenic angles. 3-dimensional maximum intensity projection (MIP) coronal a nd sagittal reformats were then acquired through the thorax. For radiation dose reduction, the follow ing was used: automated exposure control, adjustment of mA and/or kV according to patient size. COMPARISON: 04/16/2019 FINDINGS: Image quality: Excellent. Pulmonary arteries: Pulmonary arteries are normal in size, and demonstrate no intraluminal filling d efects to suggest central pulmonary embolism. Lungs and pleura: Lungs are clear. No pleural effusions or pneumothorax. There is a pulmonary nodul e in the superior segment of the left lower lobe which is minimally increased in size. On previous im age 82/3 it measured 8.2 mm. On current image 95/6 and measures 9.5 mm. Central and peripheral airway s are patent. Mediastinum: Heart size is normal, without pericardial effusion. No mediastinal or hilar adenopathy . Thoracic aorta is normal in caliber and enhancement. Esophagus is normal in caliber, without hiat al hernia. Bones and chest wall: No suspicious bony lesions. Ribs and thoracic spine appear intact throughout. No axillary or supraclavicular adenopathy. The thyroid is normal in size and there are no incident al findings. Abdomen: Visualized upper abdominal solid organs appear normal in the early arterial phase of enhanc ement. IMPRESSION: 1. No evidence acute pulmonary emboli. 2. No evidence acute pulmonary process. 3. Slight interval growth of a superior segment left lower lobe pulmonary nodule. Over a 18 month jerardo e period, the nodule has grown from 8.2 mm to 9.5 mm. This pulmonary nodule may either be a slowly growing benign pulmonary nodule, or an indolent neoplasm . Consider PET/CT versus 3 month follow-up CT for further evaluation CLINICAL RECOMMENDATION STATEMENTS: In patients <35 years with an ITN detected on CT, MRI, or extrathyroidal ultrasound, the Committee re commends further evaluation with dedicated thyroid ultrasound if the nodule is ?1 cm and has no suspi cious imaging features, and if the patient has normal life expectancy. In patients ?35 years with an ITN detected on CT, MRI, or extrathyroidal ultrasound, the Committee re commends further evaluation with dedicated thyroid ultrasound if the nodule is ?1.5 cm and has no liv picious imaging features, and if the patient has normal life expectancy. (ACR, 2014) . Reviewed by: Jose Ramon MD on 09/12/2020 9:05 AM JIM Approved by: Jose Ramon MD on 09/12/2020 9:05 AM JIM Station ID: [id number]
== END 2020-09-12 06:22 | disposition home or self-care (01) ==
LOC: ED 01:37
DX: S50.12XA Contusion of left forearm, initial encounter (principal); S50.812A Abrasion of left forearm, initial encounter; W01.0XXA Fall on same level from slipping, tripping and stumbling without subsequent striking against object, initial encounter; Y92.009 Unspecified place in unspecified non-institutional (private) residence as the place of occurrence of the external cause; R55 Syncope and collapse; R07.9 Chest pain, unspecified; R06.02 Shortness of breath; R91.1 Solitary pulmonary nodule; R74.01 Elevation of levels of liver transaminase levels; R00.0 Tachycardia, unspecified; Z20.822 Contact with and (suspected) exposure to COVID-19; Z86.711 Personal history of pulmonary embolism
CPT/HCPCS: 0202U; 36415; 71046; 71275; 73090; 80053; 83690; 84484; 85025; 93005; 96361; 96374; 96375; 99284; J1170; Q9967

== ENCOUNTER 2020-10-07 13:20 | Emergency (ER) | payer OTHER ==
[2020-10-07] MEDS ORDERED: KETOROLAC 30 MG/ML VIAL IVP STA (14:24)
[2020-10-07] MEDS ORDERED: DEXAMETHASONE 10 MG/ML VIAL IVP STA (14:24)
[2020-10-07 14:35] LABS: BASOPHILS % (AUTO) 0.3 %; EOSINOPHILS # (AUTO) 0.1 10^3/uL (0.0-0.7); EOSINOPHILS % (AUTO) 1.4 %; HCT - HEMATOCRIT 43.2 % (37.0-47.0); HGB - HEMOGLOBIN 13.7 g/dL (12.0-16.0); LYMPHOCYTES # (AUTO) 1.8 10^3/uL (1.5-3.5); LYMPHOCYTES % (AUTO) 25.9 %; MEAN CORPUSCULAR HEMOGLOBIN 27.2 pg (27.0-31.0); MEAN CORPUSCULAR HGB CONC 31.7 g/dL (32.0-36.0); MEAN CORPUSCULAR VOLUME 85.9 fL (81.0-99.0); MEAN PLATELET VOLUME 9.3 fL (7.9-10.8); MONOCYTES # (AUTO) 0.4 10^3/uL (0.0-1.0); MONOCYTES % (AUTO) 6.2 %; NEUTROPHILS # (AUTO) 4.5 10^3/uL (1.5-6.6); NEUTROPHILS % (AUTO) 65.5 %; PLT - PLATELET COUNT 239 10^3/uL (130-450); RED BLOOD COUNT 5.03 10^6/uL (4.20-5.40); RED CELL DISTRIBUTION WIDTH 13.3 % (12.0-15.0); WHITE BLOOD COUNT 6.9 x10^3/uL (4.8-10.8)
[2020-10-07] MEDS ORDERED: LORazepam 2 MG/ML VIAL IVP STA (14:50)
--- NOTE | 2020-10-07 14:53 | XRAY Report ---
PROCEDURE: Chest 1 View X-Ray INDICATIONS: soa right sided chest pain TECHNIQUE: One view of the chest was acquired. COMPARISON: 09/12/2020 FINDINGS: Surgical changes and devices: None. Lungs and pleura: No pleural effusions or pneumothorax. Lungs are clear. Mediastinum: Mediastinal contours appear normal. Heart size is normal. Bones and chest wall: No suspicious bony lesions. Overlying soft tissues appear unremarkable. IMPRESSION: No acute cardiopulmonary disease process. Reviewed by: María Lemus MD, PhD on 10/07/2020 2:52 PM PDT Approved by: María Lemus MD, PhD on 10/07/2020 2:52 PM PDT Station ID: [id number]
[2020-10-07] MEDS ORDERED: diphenhydrAMINE INJ 50 MG/ML VIAL IVP STA (15:02)
[2020-10-07] MEDS ORDERED: PROCHLORPERAZINE 10 MG/2 ML VIAL IVP STA (15:02)
[2020-10-07] MEDS ORDERED: HYDROmorphone 1 MG/ML CARPUJECT IVP STA (15:12)
[2020-10-07 15:16] LABS: ALBUMIN 4.5 g/dL (3.2-5.5); ALBUMIN/GLOBULIN RATIO 1.2 (1.0-2.2); BILIRUBIN,TOTAL 0.5 mg/dL (0.2-1.0); CREATININE 0.8 mg/dL (0.4-1.0); POTASSIUM 4.1 mmol/L (3.5-5.0); TOTAL PROTEIN 8.4 g/dL (6.7-8.2)
[2020-10-07 15:20] LABS: BILIRUBIN,URINE NEGATIVE (NEGATIVE); CLARITY,URINE HAZY (CLEAR); GLUCOSE, URINE (UA) 500 mg/dL (NEGATIVE); KETONES,URINE (UA) TRACE mg/dL (NEGATIVE); LEUKOCYTE ESTERASE, URINE NEGATIVE (NEGATIVE); NITRITE,URINE NEGATIVE (NEGATIVE); OCCULT BLOOD,URINE NEGATIVE (NEGATIVE); PH,URINE 5.5 PH (5.0-7.5); PROTEIN,URINE NEGATIVE (NEGATIVE); UROBILINOGEN,URINE 0.2 (NORMAL) E.U./dL (NORMAL)
[2020-10-07 15:26] LABS: RBC,URINE 0-5 /HPF (0-5); WBC,URINE 0-3 /HPF (0-5)
[2020-10-07 15:27] LABS: BACTERIA,URINE Many /HPF (None Seen); SQUAMOUS EPITHELIAL CELL,UR MANY Squamous (<= Few)
--- NOTE | 2020-10-07 15:31 | ED Physician Documentation ---
PD HPI CHEST PAIN - Stated complaint Stated Complaint: RT SIDE UPPER ABD PX/HALLUCINATIONS - Chief complaint Chief Complaint: Abd Pain - History obtained from History obtained from: Patient, Family - History of Present Illness Timing - onset: Last night Timing - onset during: Rest Timing - duration: Hours Timing - details: Gradual onset, Still present Quality: Tightness, Sharp, Pain Location: Right chest Radiation: Abdominal Improved by: Rest Worsened by: Inspiration, Movement, Palpation, Position Associated symptoms: Shortness of air, Feeling faint / dizzy Similar symptoms before: Diagnosis (fatty infiltrate of the liver) Recently seen: Emergency Dept - Additional information Additional information: 39-year-old female with a history of anxiety depression PTSD fibromyalgia and ADHD has been seen in the emergency department numerous times most recently for right upper quadrant pain she has had CT scan and ultrasound and chest x-ray and she has a normal appearing gallbladder and a fatty infiltrate to her liver. She presents to the emergency department today complaining of specific pain to the right upper quadrant she is hyperventilating and she is complaining of difficulty concentrating, auditory and visual hallucinations. Review of Systems Constitutional: denies: Fever Eyes: denies: Decreased vision Ears: denies: Ear pain Nose: denies: Congestion Throat: denies: Sore throat Cardiac: reports: Chest pain / pressure. denies: Palpitations Respiratory: reports: Dyspnea. denies: Cough GI: reports: Abdominal Pain, Nausea. denies: Vomiting, Constipation, Diarrhea : denies: Dysuria, Frequency Skin: denies: Rash Musculoskeletal: denies: Neck pain, Back pain, Extremity pain Neurologic: reports: Difficulty speaking, Confused. 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 : Chronic bladder infection, Kidney stones, Other HEENT: None Psych: Depression, Anxiety, Bipolar disorder, Panic attacks, ADD/ADHD, Post traumatic stress disorder Musculoskeletal: Fibromyalgia, Chronic back pain Derm: None - Past Surgical History Past Surgical History: Yes Ortho: Spine surgery, Other /HOSPITAL ADMINISTRATOR: section, Hysterectomy, Oophrectomy, Other HEENT: Tonsil/Adenoidectomy - Present Medications Home Medications: Ambulatory Orders Medication Instructions Recorded Confirmed Alprazolam [Xanax] 2 mg PO BID PRN 10/29/14 10/07/20 Duloxetine HCl 30 mg PO TID 04/16/19 10/07/20 lamoTRIgine [LaMICtal] 150 mg PO BID 05/04/20 10/07/20 Dextroamphetamine/Amphetamine 30 mg PO DAILY 10/07/20 10/07/20 [Adderall 30 mg Tablet] - Allergies Allergies/Adverse Reactions: Allergies Allergy/AdvReac Type Severity Reaction Status Date / Time sulfamethoxazole Allergy Severe Hives Verified 09/12/20 02:04 [From Bactrim] trimethoprim [From Bactrim] Allergy Severe Hives Verified 09/12/20 02:04 azithromycin [From Zithromax] Allergy Anaphylaxis Verified 09/12/20 02:04 - Social History Does the pt smoke?: No Smoking Status: Never smoker Does the pt drink ETOH?: Yes Does the pt have substance abuse?: No - Immunizations Immunizations are current?: Yes - POLST Patient has POLST: No POLST Status: Full Code PD ED PE NORMAL - Vitals Vital signs reviewed: Yes (Tachycardic and hypertensive) - General General: Alert and oriented X 3, Well developed/nourished, Other ( Anxious appearing female who is hyperventilating) - HEENT HEENT: Atraumatic, PERRL, EOMI, Ears normal, Moist mucous membranes, Pharynx benign, Dentition benign - Neck Neck: Supple, no meningeal sign, No bony TTP - Cardiac Cardiac: No murmur, Other (Tachycardic to 110) - Respiratory Respiratory: No respiratory distress, Clear bilaterally, Other (There is specific point tenderness to the right lower rib cage anteriorly specifically over the ribs and not over the abdomen.) - Abdomen Abdomen: Normal bowel sounds, Soft, Non tender, Non distended, No organomegaly - Back Back: No CVA TTP, No spinal TTP - Derm Derm: Normal color, Warm and dry, No rash - Extremities Extremities: No deformity, No edema - Neuro Neuro: Alert and oriented X 3, picture frames inspector 2-12 intact, No motor deficit, No sensory deficit, Normal speech Eye Opening: Spontaneous Motor: Obeys Commands Verbal: Oriented GCS Score: 15 - Psych Psych: Normal affect, Other (The mood is anxious) Results - Vitals Vitals: Vital Signs - 24 hr 07/15/21 07/15/21 13:22 16:32 Temperature 36.8 C 36.5 C Heart Rate 126 H 84 Respiratory 19 14 Rate Blood Pressure 184/122 H 144/70 H O2 Saturation 98 95 Oxygen O2 Source Room air - Labs Labs: Laboratory Tests 10/07/20 10/07/20 10/07/20 13:56 13:56 14:46 WBC 6.9 RBC 5.03 Hgb 13.7 Hct 43.2 MCV 85.9 MCH 27.2 MCHC 31.7 L RDW 13.3 Plt Count 239 MPV 9.3 Neut # (Auto) 4.5 Lymph # (Auto) 1.8 [place]rus # (Auto) 0.4 Eos # (Auto) 0.1 Baso # (Auto) 0.0 Absolute Nucleated RBC 0.00 Nucleated RBC % 0.0 Sodium 137 Potassium 4.1 Chloride 100 L Carbon Dioxide 23 Anion Gap 14.0 H BUN 10 Creatinine 0.8 Estimated GFR (MDRD) 80 L Glucose 208 H Calcium 10.0 Total Bilirubin 0.5 AST 160 H ALT 81 H Alkaline Phosphatase 89 Total Protein 8.4 H Albumin 4.5 Globulin 3.9 Albumin/Globulin Ratio 1.2 Lipase 35 Urine Color YELLOW Urine Clarity HAZY Urine pH 5.5 Ur Specific [place] 1.025 Urine Protein NEGATIVE Urine Glucose (UA) 500 H Urine Ketones TRACE Urine Occult Blood NEGATIVE Urine Nitrite NEGATIVE Urine Bilirubin NEGATIVE Urine Urobilinogen 0.2 (NORMAL) Ur Leukocyte Esterase NEGATIVE Urine RBC 0-5 Urine WBC 0-3 Ur Squamous Epith Cells MANY Squamous H Urine Bacteria Many H Ur Microscopic Review INDICATED Urine Culture Comments NOT INDICATED - Rads (name of study) chest Radiology: Prelim report reviewed (Impression: No acute cardiopulmonary disease process.), EMP read indepedently, See rad report PD MEDICAL DECISION MAKING - ED course Complexity details: reviewed old records, reviewed results, re-evaluated patient, considered differential, d/w patient, d/w family ED course: 39-year-old female with history of anxiety depression PTSD and ADHD presents to the emergency department with hyperventilation syndrome and right upper quadrant pain that is actually chest wall pain. She is treated in the emergency department with dexamethasone and Toradol without much relief she is given Ativan as well and eventually requires Compazine Benadryl and Dilaudid. She is able to slow down her breathing and her symptoms resolved. She has an appointment to see her psychiatrist coming up and she has a therapist as well and she is seeing weekly. She is getting ready to begin ketamine infusions. Departure - Departure Disposition: 01 Home, Self Care Clinical Impression: Chest wall pain, Hyperventilation syndrome Condition: Stable Instructions: ED Chest Pain Costochondritis, ED Strain Chest Wall Follow-Up: KRISTYN PIMENTEL MD [Primary Care Provider] - Comments: Leatha, today the symptoms you are presenting with appear to be related to your chest wall and fatigue of the chest wall from hyperventilation. Hyperventilation is usually related to anxiety and treatment of anxiety can be helpful in preventing these episodes from happening. Follow-up with your psychiatrist and your therapist as previously planned. Discharge Date/Time: 10/07/20 16:33
[2020-10-07 16:33] VITALS: BP 144/70
== END 2020-10-07 16:33 | disposition home or self-care (01) ==
LOC: ED 13:20
DX: R07.89 Other chest pain (principal); F45.8 Other somatoform disorders
CPT/HCPCS: 36415; 71045; 80053; 81001; 83690; 85025; 96374; 96375; 99284; 99285; J1170; J1200; J2060; 81003; 87086

== ENCOUNTER 2021-02-05 18:14 | Outpatient (CLI) | payer OTHER | END 2021-02-05 18:15 | disposition short-term general hospital (02) | LOC: EMS 18:14 | DX: R29.898 Other symptoms and signs involving the musculoskeletal system (principal); R51.9 Headache, unspecified; R55 Syncope and collapse | CPT/HCPCS: A0425; A0427 ==

== ENCOUNTER 2021-02-26 14:05 | Outpatient (CLI) | payer OTHER | END 2021-02-26 14:06 | disposition critical access hospital (66) | LOC: EMS 14:05 | DX: R29.898 Other symptoms and signs involving the musculoskeletal system (principal); R29.810 Facial weakness | CPT/HCPCS: A0425; A0427 ==

== ENCOUNTER 2021-02-26 14:20 | Emergency (ER) | payer OTHER ==
[2021-02-26 14:45] LABS: BASOPHILS % (AUTO) 0.4 %; EOSINOPHILS # (AUTO) 0.2 10^3/uL (0.0-0.7); EOSINOPHILS % (AUTO) 2.5 %; HCT - HEMATOCRIT 39.7 % (37.0-47.0); HGB - HEMOGLOBIN 12.9 g/dL (12.0-16.0); LYMPHOCYTES # (AUTO) 2.2 10^3/uL (1.5-3.5); LYMPHOCYTES % (AUTO) 30.4 %; MEAN CORPUSCULAR HEMOGLOBIN 27.7 pg (27.0-31.0); MEAN CORPUSCULAR HGB CONC 32.5 g/dL (32.0-36.0); MEAN CORPUSCULAR VOLUME 85.2 fL (81.0-99.0); MONOCYTES # (AUTO) 0.4 10^3/uL (0.0-1.0); MONOCYTES % (AUTO) 5.4 %; NEUTROPHILS # (AUTO) 4.3 10^3/uL (1.5-6.6); NEUTROPHILS % (AUTO) 60.2 %; PLT - PLATELET COUNT 187 10^3/uL (130-450); RED BLOOD COUNT 4.66 10^6/uL (4.20-5.40); RED CELL DISTRIBUTION WIDTH 14.1 % (12.0-15.0); WHITE BLOOD COUNT 7.2 x10^3/uL (4.8-10.8)
[2021-02-26 14:52] LABS: INR 1.2 (0.8-1.2); PT - PROTHROMBIN TIME 13.6 secs (9.9-12.6)
[2021-02-26 14:57] LABS: ALBUMIN 4.3 g/dL (3.2-5.5); ALBUMIN/GLOBULIN RATIO 1.2 (1.0-2.2); BILIRUBIN,TOTAL 0.5 mg/dL (0.2-1.0); CALCIUM 9.2 mg/dL (8.5-10.3); CREATININE 0.5 mg/dL (0.4-1.0); POTASSIUM 3.8 mmol/L (3.5-5.0); TOTAL PROTEIN 7.9 g/dL (6.7-8.2)
[2021-02-26 14:59] LABS: PARTIAL THROMBOPLASTIN TIME 33.9 secs (24.9-33.3)
[2021-02-26] MEDS ORDERED: diphenhydrAMINE INJ 50 MG/ML VIAL IVP STA (15:06)
[2021-02-26] MEDS ORDERED: DEXAMETHASONE 10 MG/ML VIAL IVP STA (15:06)
[2021-02-26] MEDS ORDERED: KETOROLAC 30 MG/ML VIAL IVP STA (15:06)
[2021-02-26] MEDS ORDERED: SODIUM CHLORIDE 0.9% 1,000 ML IV STA ×2 (15:06→16:49)
[2021-02-26] MEDS ORDERED: PROCHLORPERAZINE 10 MG/2 ML VIAL IVP STA (15:06)
--- NOTE | 2021-02-26 16:10 | CT Report ---
PROCEDURE: HEAD WO INDICATIONS: left sided weakness; recent TPA TECHNIQUE: Noncontrast 4.5 mm thick angled axial sections acquired from the foramen magnum to the vertex. For r adiation dose reduction, the following was used: automated exposure control, adjustment of mA and/or kV according to patient size. COMPARISON: CT head angiogram 12/11/2019, MRI brain 01/17/2020. FINDINGS: Image quality: Excellent. CSF spaces: Basal cisterns are patent. No extra-axial fluid collections. Ventricles are normal in size and shape. Brain: No intracranial hemorrhage, mass, or mass effect. Jackson-white matter interface appears grossly preserved. Skull and face: Calvarium and visualized facial bones are intact, without suspicious lesions. Sinuses: Visualized sinuses and mastoids are clear. There is a metallic foreign body in the left ext ernal auditory canal. IMPRESSION: 1. No definite acute intracranial abnormality. Reviewed by: Ken Black MD on 02/26/2021 3:09 PM [facility] Approved by: Ken Black MD on 02/26/2021 3:09 PM [facility] Station ID: [id number]
[2021-02-26 17:16] LABS: BILIRUBIN,URINE NEGATIVE (NEGATIVE); CLARITY,URINE HAZY (CLEAR); GLUCOSE, URINE (UA) >=1000 mg/dL (NEGATIVE); KETONES,URINE (UA) NEGATIVE (NEGATIVE); LEUKOCYTE ESTERASE, URINE NEGATIVE (NEGATIVE); NITRITE,URINE NEGATIVE (NEGATIVE); OCCULT BLOOD,URINE NEGATIVE (NEGATIVE); PROTEIN,URINE NEGATIVE (NEGATIVE); UROBILINOGEN,URINE 0.2 (NORMAL) E.U./dL (NORMAL)
--- NOTE | 2021-02-26 17:31 | ED Physician Documentation ---
PD HPI FOCAL NEURO - Stated complaint Stated Complaint: L SIDED WEAKNESS - Chief complaint Chief Complaint: Neuro - History obtained from History obtained from: Patient, EMS - History of Present Illness Timing - onset: Enter time (1315), Today Timing - duration: Minutes Timing - details: Abrupt onset, Still present Severity of deficit: Severe Weakness: Arm, Hand, Leg, Foot, Left Associated symptoms: Headache Contributing factors: negative: Anticoagulated, Vascular dz, Atrial fibrillation, Prosthetic heart valve Baseline status: positive: A&OX3, ambulatory, indep Similar symptoms before: Diagnosis (complicated migraine and CVA) Recently seen: Admitted - Additional information Additional information: 40-year-old female with a history of migraines PTSD and ADHD presents to the emergency department with left hemiparesis which occurred abruptly at about 1315. She has had similar symptoms 3 weeks ago and was seen at [facility] in [place] where she was promptly administered TPA. The patient has a history of migraine headaches and she has had similar symptoms previously which have responded to the use of migraine medications. The patient also has had issue with syncope and nocturia. Review of Systems Constitutional: denies: Fever Eyes: denies: Decreased vision Ears: denies: Ear pain Nose: denies: Congestion Throat: denies: Sore throat Cardiac: denies: Chest pain / pressure, Palpitations Respiratory: denies: Dyspnea, Cough GI: denies: Abdominal Pain, Nausea, Vomiting, Diarrhea : denies: Dysuria, Frequency Skin: denies: Rash Musculoskeletal: denies: Neck pain, Back pain, Extremity pain Neurologic: reports: Focal weakness, Numbness, Difficulty speaking, Syncope, Headache. 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 : Chronic bladder infection, Kidney stones, Other HEENT: None Psych: Depression, Anxiety, Bipolar disorder, Panic attacks, ADD/ADHD, Post traumatic stress disorder Musculoskeletal: Fibromyalgia, Chronic back pain Derm: None - Past Surgical History Past Surgical History: Yes Ortho: Spine surgery, Other /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 MACHINE 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: section, Hysterectomy, Oophrectomy, Other HEENT: Tonsil/Adenoidectomy - Present Medications Home Medications: Ambulatory Orders Medication Instructions Recorded Confirmed Alprazolam [Xanax] 2 mg PO BID PRN 10/29/14 02/26/21 lamoTRIgine [LaMICtal] 150 mg PO BID 05/04/20 02/26/21 Dextroamphetamine/Amphetamine 30 mg PO DAILY 10/07/20 10/07/20 [Adderall 30 mg Tablet] Cyclobenzaprine [Flexeril] 10 mg PO TID PRN 02/26/21 02/26/21 DULoxetine [Cymbalta] 60 mg PO BID 02/26/21 02/26/21 Estrogens, Conjugated [Premarin] 0.625 mg PO DAILY 02/26/21 02/26/21 Nitrofurantoin [Macrobid] 100 mg ORAL DAILY 02/26/21 02/26/21 Pantoprazole Sodium 40 mg PO BID 02/26/21 02/26/21 Rimegepant Sulfate [Nurtec Odt] 75 mg PO DAILY PRN 02/26/21 02/26/21 - Allergies Allergies/Adverse Reactions: Allergies Allergy/AdvReac Type Severity Reaction Status Date / Time sulfamethoxazole Allergy Severe Hives Verified 02/26/21 14:49 [From Bactrim] trimethoprim [From Bactrim] Allergy Severe Hives Verified 02/26/21 14:49 azithromycin [From Zithromax] Allergy Anaphylaxis Verified 02/26/21 14:49 - Social History Does the pt smoke?: No Smoking Status: Never smoker Does the pt drink ETOH?: Yes Does the pt have substance abuse?: No - Immunizations Immunizations are current?: Yes - POLST Patient has POLST: No POLST Status: Full Code PD ED PE NORMAL - Vitals Vital signs reviewed: Yes (Tachycardic tachypneic and hypertensive) - General General: No acute distress, Well developed/nourished - HEENT HEENT: Atraumatic, PERRL, EOMI, Other (There is no facial asymmetry appreciated) - Neck Neck: Supple, no meningeal sign, No bony TTP - Cardiac Cardiac: RRR, No murmur - Respiratory Respiratory: No respiratory distress, Clear bilaterally - Abdomen Abdomen: Normal bowel sounds, Soft, Non tender, Non distended, No organomegaly - Back Back: No CVA TTP, No spinal TTP - Derm Derm: Normal color, Warm and dry, No rash - Extremities Extremities: No deformity, No edema - Neuro Neuro: Other (The speech is halting and dysarthric. There is no evidence of a facial droop there is left hemiparesis.) Eye Opening: Spontaneous Motor: Obeys Commands Verbal: Oriented GCS Score: 15 - Psych Psych: Normal mood, Normal affect NIHSS - Time Time: 14:40 - Level of Consciousness Level of consciousness: (0) Alert, Keenly responsive LOC Questions: (0) Answers both Q's correct LOC Commands: (0) Performs both correctly - Gaze Best Gaze: (0) Normal - Visual Visual: (0) No loss - Facial Palsy Facial Palsy: (0) Normal, symmetrical movement - Motor Arms (both separate) Motor Arm (right): (0) No drift Motor Arm (left): (1) Drift - Motor Legs (both separate) Motor Leg (right): (0) No drift Motor Leg (left): (1) Drift - Limb Ataxia Limb Ataxia: (2) Present in 2 limbs - Sensory Sensory: (1) [id number] loss - Best Language Best Language: (1) [id number] - Dysarthria Dysarthria: (1) [id number] dysarthria - Extinction and Inattention (formally neg Extinction and inattention: (1) Visual,tactile,auditory,spatial, or personal inattention - Total Score/Results Total Score/Result: 8 Results - Vitals Vitals: Vital Signs - 24 hr 02/26/21 02/26/21 02/26/21 14:32 15:31 17:00 Temperature 36.4 C L Heart Rate 115 H 119 H 95 Respiratory 29 H 27 H 24 Rate Blood Pressure 155/107 H 134/90 H 114/84 H O2 Saturation 96 96 99 02/26/21 02/26/21 19:08 19:19 Temperature Heart Rate 102 H 101 H Respiratory 21 22 Rate Blood Pressure 136/85 H 136/85 H O2 Saturation 94 96 Oxygen O2 Source Room air - Labs Labs: Laboratory Tests 02/26/21 02/26/21 02/26/21 14:40 14:40 14:40 WBC 7.2 RBC 4.66 Hgb 12.9 Hct 39.7 MCV 85.2 MCH 27.7 MCHC 32.5 RDW 14.1 Plt Count 187 MPV 9.0 Neut # (Auto) 4.3 Lymph # (Auto) 2.2 Person # (Auto) 0.4 Eos # (Auto) 0.2 Baso # (Auto) 0.0 Absolute Nucleated RBC 0.00 Nucleated RBC % 0.0 PT 13.6 H INR 1.2 APTT 33.9 H Sodium 135 Potassium 3.8 Chloride 100 L Carbon Dioxide 22 Anion Gap 13.0 BUN 9 Creatinine 0.5 Estimated GFR (MDRD) 137 Glucose 233 H Calcium 9.2 Total Bilirubin 0.5 AST 95 H ALT 62 H Alkaline Phosphatase 85 Total Protein 7.9 Albumin 4.3 Globulin 3.6 Albumin/Globulin Ratio 1.2 Lipase 29 Urine Color Urine Clarity Urine pH Ur Specific [place] Urine Protein Urine Glucose (UA) Urine Ketones Urine Occult Blood Urine Nitrite Urine Bilirubin Urine Urobilinogen Ur Leukocyte Esterase Urine RBC Urine WBC Ur Squamous Epith Cells Amorphous Sediment Urine Bacteria Ur Microscopic Review Urine Culture Comments 02/26/21 17:05 WBC RBC Hgb Hct MCV MCH MCHC RDW Plt Count MPV Neut # (Auto) Lymph # (Auto) Person # (Auto) Eos # (Auto) Baso # (Auto) Absolute Nucleated RBC Nucleated RBC % PT INR APTT Sodium Potassium Chloride Carbon Dioxide Anion Gap BUN Creatinine Estimated GFR (MDRD) Glucose Calcium Total Bilirubin AST ALT Alkaline Phosphatase Total Protein Albumin Globulin Albumin/Globulin Ratio Lipase Urine Color YELLOW Urine Clarity HAZY Urine pH 6.0 Ur Specific [place] 1.015 Urine Protein NEGATIVE Urine Glucose (UA) >=1000 H Urine Ketones NEGATIVE Urine Occult Blood NEGATIVE Urine Nitrite NEGATIVE Urine Bilirubin NEGATIVE Urine Urobilinogen 0.2 (NORMAL) Ur Leukocyte Esterase NEGATIVE Urine RBC None Seen Urine WBC 0-3 Ur Squamous Epith Cells FEW Squamous Amorphous Sediment Rare Urine Bacteria None Seen Ur Microscopic Review INDICATED Urine Culture Comments NOT INDICATED - Rads (name of study) CT head w/o Radiology: Prelim report reviewed (Impression: 1. No definite acute intracranial abnormality.), EMP read indepedently, See rad report PD MEDICAL DECISION MAKING - ED course Complexity details: reviewed results, re-evaluated patient, considered differential, d/w patient ED course: 40-year-old female review ports to the emergency department with left sided hemiparesis similar to what she has had previously when she was seen at [facility] in [place] diagnosed with a stroke and administered TPA. After the fact there they were concerned about the possibility of a conversion reaction. Today the patient presents again with similar symptoms and we have treated her here previously with an intravenous migraine cocktail which resolved her symptoms. Today we administered intravenous saline, Compazine, Toradol, Benadryl and dexamethasone. The patient had steady improvement in her symptoms was able to sit up talk and use her right and left arms equally. The patient has had a recent syncopal episode and today we find that she is significantly dehydrated and I suspect this is secondary to diabetes. We found her to have glucose urea and blood sugar of 233. Departure - Departure Disposition: 01 Home, Self Care Clinical Impression: Complicated migraine Condition: Stable Instructions: ED Headache Migraine Follow-Up: [facility] Veenayair Hancock [Provider Group] Comments: Leatha, today you presented to the emergency department with something that looks like you are having a stroke on the left side of your body. We treated you for migraine and we believe that this entity the happens to periodically is related to a complicated migraine. If this happens to you in the future please announce that you have complicated migraine to the caregiver. In addition today we have found that your blood sugar was elevated in a range that would likely cause you to have significant dehydration. This may be what has prompted fainting previously. Follow-up with your doctor as planned this week regarding care for diabetes. Discharge Date/Time: 02/26/21 19:19
[2021-02-26 17:40] LABS: AMORPHOUS SEDIMENT,UR Rare /LPF; BACTERIA,URINE None Seen /HPF (None Seen); RBC,URINE None Seen /HPF (0-5); SQUAMOUS EPITHELIAL CELL,UR FEW Squamous (<= Few); WBC,URINE 0-3 /HPF (0-5)
[2021-02-26 19:08] VITALS: BP 136/85
== END 2021-02-26 19:19 | disposition home or self-care (01) ==
LOC: EDUNIT# → ED 14:20
DX: G43.109 Migraine with aura, not intractable, without status migrainosus (principal); E86.0 Dehydration; E11.65 Type 2 diabetes mellitus with hyperglycemia; R55 Syncope and collapse; Z86.73 Personal history of transient ischemic attack (TIA), and cerebral infarction without residual deficits
CPT/HCPCS: 36415; 70450; 80053; 81001; 83690; 85025; 85610; 85730; 96361; 96374; 96375; 99284; 99285; J1200; 81003; 87086

== ENCOUNTER 2021-03-10 14:08 | Emergency (ER) | payer OTHER ==
--- NOTE | 2021-03-10 14:27 | ED Physician Documentation ---
PD HPI CHEST PAIN - Stated complaint Stated Complaint: CHEST PX/SOA - Chief complaint Chief Complaint: Cardiac - History obtained from History obtained from: Patient - History of Present Illness Timing - onset: Yesterday Timing - onset during: Rest, Light activity. No: Exertion Timing - duration: Days (2) Timing - details: Gradual onset, Still present Location: Substernal, Right chest Radiation: Back Worsened by: Inspiration, Movement Associated symptoms: Shortness of air, Feeling faint / dizzy, General Weakness (for past months.). No: Diaphoresis, Nausea, Palpitations, Cough Recently seen: Emergency Dept (patient states had headache with right weakness and seen at [facility] and given TPA for concern of stroke. Subsequently treated for migraine and improved. She states had head imaging but not sure results. SHe goes with story of having a stroke. Has had weakness generally for months. ? FND.) Review of Systems Constitutional: denies: Fever, Chills Nose: denies: Rhinorrhea / runny nose, Congestion Throat: denies: Sore throat Cardiac: reports: Chest pain / pressure. denies: Palpitations, Pedal edema, Calf pain Respiratory: reports: Dyspnea. denies: Cough, Wheezing GI: reports: Nausea. denies: Abdominal Pain, Vomiting, Diarrhea Skin: denies: Rash, Lesions Musculoskeletal: reports: Neck pain, Back pain (chronic) Neurologic: reports: Generalized weakness (chronic, and uses walker at baseline for past months.) PD PAST MEDICAL HISTORY - Past Medical History Cardiovascular: Pulmonary embolism, Other Respiratory: Pneumonia Neuro: CVA, Headaches, Migraines, Fainting Endocrine/Autoimmune: None GI: GERD DIE CASTER: None : Chronic bladder infection, Kidney stones, Other HEENT: None Psych: Depression, Anxiety, Bipolar disorder, Panic attacks, ADD/ADHD, Post traumatic stress disorder Musculoskeletal: Fibromyalgia, Chronic back pain Derm: None - Past Surgical History Past Surgical History: Yes Ortho: Spine surgery, Other /DIE CASTER: section, Hysterectomy, Oophrectomy, Other HEENT: Tonsil/Adenoidectomy - Present Medications Home Medications: Ambulatory Orders Medication Instructions Recorded Confirmed Alprazolam [Xanax] 2 mg PO BID PRN 10/29/14 02/26/21 lamoTRIgine [LaMICtal] 150 mg PO BID 05/04/20 02/26/21 Dextroamphetamine/Amphetamine 30 mg PO DAILY 10/07/20 10/07/20 [Adderall 30 mg Tablet] Cyclobenzaprine [Flexeril] 10 mg PO TID PRN 02/26/21 02/26/21 DULoxetine [Cymbalta] 60 mg PO BID 02/26/21 02/26/21 Estrogens, Conjugated [Premarin] 0.625 mg PO DAILY 02/26/21 02/26/21 Nitrofurantoin [Macrobid] 100 mg ORAL DAILY 02/26/21 02/26/21 Pantoprazole Sodium 40 mg PO BID 02/26/21 02/26/21 Rimegepant Sulfate [Nurtec Odt] 75 mg PO DAILY PRN 02/26/21 02/26/21 Albuterol Sulf [Ventolin Hfa 2 - 3 puffs INH Q4HR PRN #1 inhaler 03/10/21 Inhaler] HYDROcod/ACETAM 5/325 [[place] 5/325] 1 ea PO Q6H PRN #10 tablet 03/10/21 Naproxen 250 mg PO TID 7 Days #15 tablet 03/10/21 - Allergies Allergies/Adverse Reactions: Allergies Allergy/AdvReac Type Severity Reaction Status Date / Time sulfamethoxazole Allergy Severe Hives Verified 03/10/21 14:20 [From Bactrim] trimethoprim [From Bactrim] Allergy Severe Hives Verified 03/10/21 14:20 azithromycin [From Zithromax] Allergy Anaphylaxis Verified 03/10/21 14:20 - Social History Does the pt smoke?: No Smoking Status: Never smoker Does the pt drink ETOH?: Yes Does the pt have substance abuse?: No - Immunizations Immunizations are current?: Yes - POLST Patient has POLST: No POLST Status: Full Code PD ED PE NORMAL - Vitals Vital signs reviewed: Yes - General General: Alert and oriented X 3, Well developed/nourished - HEENT HEENT: Atraumatic, Moist mucous membranes, Pharynx benign - Neck Neck: Supple, no meningeal sign, No adenopathy - Cardiac Cardiac: No murmur. No: RRR (regular but tachycardic. ) - Respiratory Respiratory: No respiratory distress, Clear bilaterally - Abdomen Abdomen: Normal bowel sounds, Soft, Non tender, Non distended - Back Back: No CVA TTP - Derm Derm: Normal color, Warm and dry - Extremities Extremities: No tenderness to palpate, Normal ROM s pain, No edema, No calf tenderness / cord - Neuro Neuro: Alert and oriented X 3 Eye Opening: Spontaneous Motor: Obeys Commands Verbal: Oriented GCS Score: 15 Results - Vitals Vitals: Oxygen O2 Source Nasal cannula - EKG (time done) 14:22 Rhythm: Sinus tachycardia (123). No: Atrial fibrillation [place]: Normal Intervals: Normal [place] QRS: Normal Ischemia: Normal ST segments, T wave inversion (borderline diffusely). No: ST elevation c/w ischemia - Labs Labs: Laboratory Tests 03/10/21 03/10/21 03/10/21 14:36 14:36 14:36 WBC 6.0 RBC 5.01 Hgb 13.6 Hct 43.0 MCV 85.8 MCH 27.1 MCHC 31.6 L RDW 14.2 Plt Count 203 MPV 9.2 Neut # (Auto) 3.5 Lymph # (Auto) 2.0 [place] # (Auto) 0.3 Eos # (Auto) 0.1 Baso # (Auto) 0.0 Absolute Nucleated RBC 0.00 Nucleated RBC % 0.0 D-Dimer Sodium 136 Potassium 3.9 Chloride 98 L Carbon Dioxide 24 Anion Gap 14.0 H BUN 9 Creatinine 0.5 Estimated GFR (MDRD) 137 Glucose 220 H Calcium 9.4 Magnesium Total Bilirubin 0.5 AST 112 H ALT 60 Alkaline Phosphatase 89 Troponin I High Sens 3.6 B-Natriuretic Peptide Total Protein 8.1 Albumin 4.3 Globulin 3.8 Albumin/Globulin Ratio 1.1 Lipase 28 03/10/21 03/10/21 03/10/21 14:36 14:36 14:36 WBC RBC Hgb Hct MCV MCH MCHC RDW Plt Count MPV Neut # (Auto) Lymph # (Auto) [place] # (Auto) Eos # (Auto) Baso # (Auto) Absolute Nucleated RBC Nucleated RBC % D-Dimer < 200.0 L Sodium Potassium Chloride Carbon Dioxide Anion Gap BUN Creatinine Estimated GFR (MDRD) Glucose Calcium Magnesium 1.7 Total Bilirubin AST ALT Alkaline Phosphatase Troponin I High Sens B-Natriuretic Peptide 15 Total Protein Albumin Globulin Albumin/Globulin Ratio Lipase - Rads (name of study) chest xray Radiology: Prelim report reviewed (no acute process. ), See rad report PD MEDICAL DECISION MAKING - ED course Complexity details: reviewed results (negative for MO, CHF, PE, penumonia, PTX.), considered differential (chest pain and dyspnea. No URI symptoms. Can check CXR, ECG, labs to eval for MO, CHF, Unclear the cause of the pain. consider musculoskeletal. ), d/w patient Departure - Departure Disposition: 01 Home, Self Care Clinical Impression: Chest pain at rest Condition: Stable Record reviewed to determine appropriate education?: Yes Instructions: ED Chest Pain Atypical Unkn Cause Follow-Up: KRISTYN PIMENTEL MD [Primary Care Provider] - Prescriptions: Albuterol Sulf [Ventolin Hfa Inhaler] 2 - 3 puffs INH Q4HR PRN #1 inhaler PRN Reason: Shortness Of Air/Wheezing Naproxen 250 mg PO TID 7 Days #15 tablet HYDROcod/ACETAM 5/325 [[place] 5/325] 1 ea PO Q6H PRN #10 tablet PRN Reason: Pain Comments: Your heart rate was slightly fast but seems to be improved at this time. Your EKG, chest x-ray, blood tests are normal so no signs of more significant cause of your pain. In particular no signs of heart failure, heart attack, blood clots, pneumonia nor pneumothorax. Possibilities would include chest wall musculoskeletal pain or potentially an inflammation around the lung called pleurisy given your symptoms. I would treat this with anti-inflammatories such as naproxen 3 times a day with food for the next 5 or 6 days. To that add Tylenol if needed for pain. Add hydrocodone as needed for worse pain short term. 4 wheeze or trouble breathing you can use albuterol 2 to 3 puffs 4 times a day as needed. I would anticipate improvement over the next several days. Recheck if not improving in that timeframe and return if worse. I transmitted your prescription to the pharmacy. I am prescribing a short course of narcotic pain medication for you. These are potentially dangerous and addictive medications that should be used carefully. These medications may constipate you. Take an [id number] stool softener such as docusate twice daily with plenty of water while taking these medications. If you go 24 hours without a bowel movement, take [id number] MiraLAX, per package instructions. Do not drink or drive while taking these medications. If you received narcotic or sedating medications while in the emergency department do not drive for 24 hours. Store this medication in a safe, secure place and out of reach of children. It is a violation of federal law to give or sell this medication to another person or to use in a manner other than prescribed. The ED will not refill narcotic prescriptions, including prescriptions lost or stolen. You can dispose of unwanted medications at the [facility]'s office or at several pharmacies such as [facility]. Discharge Date/Time: 03/10/21 17:15
[2021-03-10 14:51] LABS: BASOPHILS % (AUTO) 0.5 %; EOSINOPHILS # (AUTO) 0.1 10^3/uL (0.0-0.7); EOSINOPHILS % (AUTO) 1.7 %; HGB - HEMOGLOBIN 13.6 g/dL (12.0-16.0); LYMPHOCYTES % (AUTO) 33.5 %; MEAN CORPUSCULAR HEMOGLOBIN 27.1 pg (27.0-31.0); MEAN CORPUSCULAR HGB CONC 31.6 g/dL (32.0-36.0); MEAN CORPUSCULAR VOLUME 85.8 fL (81.0-99.0); MEAN PLATELET VOLUME 9.2 fL (7.9-10.8); MONOCYTES # (AUTO) 0.3 10^3/uL (0.0-1.0); MONOCYTES % (AUTO) 4.9 %; NEUTROPHILS # (AUTO) 3.5 10^3/uL (1.5-6.6); NEUTROPHILS % (AUTO) 58.6 %; PLT - PLATELET COUNT 203 10^3/uL (130-450); RED BLOOD COUNT 5.01 10^6/uL (4.20-5.40); RED CELL DISTRIBUTION WIDTH 14.2 % (12.0-15.0)
[2021-03-10] MEDS ORDERED: MORPHINE 2 MG/ML CARPUJECT IVP STA (14:54)
[2021-03-10] MEDS ORDERED: METOPROLOL 5 MG/5 ML VIAL IVP STA (14:54)
[2021-03-10] MEDS ORDERED: PROCHLORPERAZINE 10 MG/2 ML VIAL IVP STA (14:54)
[2021-03-10 15:05] LABS: ALBUMIN 4.3 g/dL (3.2-5.5); ALBUMIN/GLOBULIN RATIO 1.1 (1.0-2.2); BILIRUBIN,TOTAL 0.5 mg/dL (0.2-1.0); CALCIUM 9.4 mg/dL (8.5-10.3); CREATININE 0.5 mg/dL (0.4-1.0); POTASSIUM 3.9 mmol/L (3.5-5.0); TOTAL PROTEIN 8.1 g/dL (6.7-8.2)
--- NOTE | 2021-03-10 15:19 | XRAY Report ---
PROCEDURE: Chest 1 View X-Ray INDICATIONS: chest pain TECHNIQUE: One view of the chest was acquired. COMPARISON: CXR 10/07/2020. CT pulmonary angiogram 09/12/2020. FINDINGS: Surgical changes and devices: None. Lungs and pleura: No pleural effusions or pneumothorax. Lungs appear clear. No streaky opacity at t he right lung base. The pulmonary nodule in the left lower lobe superior segment is not appreciated. Mediastinum: Mediastinal contours appear normal. Heart size is normal. Bones and chest wall: No suspicious bony lesions. Overlying soft tissues appear unremarkable. IMPRESSION: No acute cardiopulmonary abnormality identified. The previously seen 0.9 cm pulmonary nodule in the left upper lobe superior segment is not appreciate d. This can be further evaluated with outpatient chest CT. Reviewed by: Tyler Lovelace MD on 03/10/2021 3:[address] [facility] Approved by: Tyler Lovelace MD on 03/10/2021 3:[address] [facility] Station ID: [id number]
[2021-03-10] MEDS ORDERED: ALBUTEROL 1 PUFF INH STA (15:54)
[2021-03-10] MEDS ORDERED: HYDROmorphone 1 MG/ML CARPUJECT IVP STA (15:54)
[2021-03-10] MEDS ORDERED: KETOROLAC 30 MG/ML VIAL IVP STA (15:55)
[2021-03-10 17:14] VITALS: BP 119/78
== END 2021-03-10 17:15 | disposition home or self-care (01) ==
LOC: ED 14:08
DX: R07.89 Other chest pain (principal); R06.02 Shortness of breath; R51.9 Headache, unspecified; R00.0 Tachycardia, unspecified; R53.1 Weakness
CPT/HCPCS: 36415; 71045; 80053; 83690; 83735; 83880; 84484; 85025; 85379; 93005; 94640; 96374; 96375; 99284; 99285; J1170

== ENCOUNTER 2021-04-03 13:38 | Emergency (ER) | payer OTHER ==
[2021-04-03] MEDS ORDERED: PROCHLORPERAZINE 10 MG/2 ML VIAL IM STA (14:04)
--- NOTE | 2021-04-03 14:47 | ED Physician Documentation ---
History of Present Illness - Stated complaint Stated Complaint: FALL, LOC - Chief complaint Chief Complaint: Neuro - History obtained from History obtained from: Patient, Family - History of Present Illness Timing: Yesterday Pain level max: 8 Pain level now: 8 - Additonal information Additional information: 40-year-old female presents to the emergency department after a ground-level fall last night in which she struck her head on a dresser. She states that her states she was unconscious for about 5 minutes. Has continued headache and nausea today. No vomiting. No neck or back pain. Took Motrin without relief. Review of Systems Constitutional: denies: Fever, Chills Nose: denies: Rhinorrhea / runny nose, Congestion GI: reports: Nausea. denies: Vomiting, Diarrhea Skin: denies: Rash Musculoskeletal: denies: Neck pain, Back pain Neurologic: reports: Headache, Head injury, LOC. 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 : Chronic bladder infection, Kidney stones, Other HEENT: None Psych: Depression, Anxiety, Bipolar disorder, Panic attacks, ADD/ADHD, Post traumatic stress disorder Musculoskeletal: Fibromyalgia, Chronic back pain Derm: None - Past Surgical History Past Surgical History: Yes Ortho: Spine surgery, Other /KINESIOTHERAPIST: section, Hysterectomy, Oophrectomy, Other HEENT: Tonsil/Adenoidectomy - Present Medications Home Medications: Ambulatory Orders Medication Instructions Recorded Confirmed Alprazolam [Xanax] 2 mg PO BID PRN 10/29/14 02/26/21 lamoTRIgine [LaMICtal] 150 mg PO BID 05/04/20 02/26/21 Dextroamphetamine/Amphetamine 30 mg PO DAILY 10/07/20 10/07/20 [Adderall 30 mg Tablet] Cyclobenzaprine [Flexeril] 10 mg PO TID PRN 02/26/21 02/26/21 DULoxetine [Cymbalta] 60 mg PO BID 02/26/21 02/26/21 Estrogens, Conjugated [Premarin] 0.625 mg PO DAILY 02/26/21 02/26/21 Nitrofurantoin [Macrobid] 100 mg ORAL DAILY 02/26/21 02/26/21 Pantoprazole Sodium 40 mg PO BID 02/26/21 02/26/21 Rimegepant Sulfate [Nurtec Odt] 75 mg PO DAILY PRN 02/26/21 02/26/21 Albuterol Sulf [Ventolin Hfa 2 - 3 puffs INH Q4HR PRN #1 inhaler 03/10/21 Inhaler] HYDROcod/ACETAM 5/325 [[place] 5/325] 1 ea PO Q6H PRN #10 tablet 03/10/21 Naproxen 250 mg PO TID 7 Days #15 tablet 03/10/21 Prochlorperazine Maleate 10 mg PO Q8H PRN #10 tab 04/03/21 [Compazine] - Allergies Allergies/Adverse Reactions: Allergies Allergy/AdvReac Type Severity Reaction Status Date / Time sulfamethoxazole Allergy Severe Hives Verified 04/03/21 13:51 [From Bactrim] trimethoprim [From Bactrim] Allergy Severe Hives Verified 04/03/21 13:51 azithromycin [From Zithromax] Allergy Anaphylaxis Verified 04/03/21 13:51 - Social History Does the pt smoke?: No Smoking Status: Never smoker Does the pt drink ETOH?: Yes Does the pt have substance abuse?: No - Immunizations Immunizations are current?: Yes - POLST Patient has POLST: No POLST Status: Full Code PD ED PE NORMAL - Vitals Vital signs reviewed: Yes - General General: Alert and oriented X 3, No acute distress, Well developed/nourished - HEENT HEENT: PERRL, Moist mucous membranes - Neck Neck: Supple, no meningeal sign, No bony TTP, C-Spine cleared by NEXUS criteria - Cardiac Cardiac: RRR - Respiratory Respiratory: No respiratory distress, Clear bilaterally - Abdomen Abdomen: Soft, Non tender, Non distended - Back Back: No spinal TTP - Derm Derm: Warm and dry - Neuro Neuro: Alert and oriented X 3, physician recruiter 2-12 intact, No motor deficit, No sensory deficit, Normal speech Eye Opening: Spontaneous Motor: Obeys Commands Verbal: Oriented GCS Score: 15 - Psych Psych: Normal mood, Normal affect Results - Vitals Vitals: Vital Signs - 24 hr 04/03/21 04/03/21 13:51 15:53 Temperature 37.0 C 36.8 C Heart Rate 114 H 99 Respiratory 19 22 Rate Blood Pressure 158/114 H 103/91 H O2 Saturation 98 97 Oxygen O2 Source Room air - Rads (name of study) Head CT Radiology: Final report received, EMP read contemporaneously, See rad report (No acute abnormality) PD MEDICAL DECISION MAKING - ED course Complexity details: considered differential, d/w patient ED course: 40-year-old female status post a ground-level fall last night. No acute findings on head CT. Feels much better after Compazine. Has pain medication and muscle relaxants at home. Will prescribe Compazine for home. Declines any pain medication here. Normal neurological exam. GCS 15. Patient counseled regarding signs and symptoms for which I believe and urgent re-evaluation would be necessary. Patient with good understanding of and agreement to plan and is comfortable going home at this time This document was made in part using voice recognition software. While efforts are made to proofread this document, sound alike and grammatical errors may occur. Departure - Departure Disposition: 01 Home, Self Care Clinical Impression: Closed head injury Qualifiers: Encounter type: initial encounter Qualified Code(s): S09.90XA - Unspecified injury of head, initial encounter Condition: Good Instructions: ED Head Injury Closed Follow-Up: KRISTYN PIMENTEL MD [Primary Care Provider] - Within 1 week Prescriptions: Prochlorperazine Maleate [Compazine] 10 mg PO Q8H PRN #10 tab PRN Reason: Nausea / Vomiting Comments: Your head CT does not show any acute abnormalities today. Go home and rest. You will likely be sore for the rest of the day and may have headaches intermittently for the next few days. You can use Motrin or Tylenol as needed for pain. Scription was sent to [facility] Discharge Date/Time: 04/03/21 16:02
--- NOTE | 2021-04-03 15:14 | CT Report ---
PROCEDURE: HEAD WO INDICATIONS: fall, head injury TECHNIQUE: Noncontrast 4.5 mm thick angled axial sections acquired from the foramen magnum to the vertex. For r adiation dose reduction, the following was used: automated exposure control, adjustment of mA and/or kV according to patient size. COMPARISON: 02/26/2021 FINDINGS: Image quality: Excellent. CSF spaces: Basal cisterns are patent. No extra-axial fluid collections. Ventricles are normal in size and shape. Brain: No midline shift. No intracranial masses or hemorrhage. Jackson-white matter interface is norm al. Skull and face: Calvarium and visualized facial bones are intact, without suspicious lesions. Sinuses: Visualized sinuses and mastoids are clear. IMPRESSION: No acute intracranial abnormality. Reviewed by: Demond Beach DO on 04/03/2021 2:13 PM [facility] Approved by: Demond Beach DO on 04/03/2021 2:13 PM [facility] Station ID: [id number]
[2021-04-03 16:01] VITALS: BP 103/91
== END 2021-04-03 16:02 | disposition home or self-care (01) ==
LOC: ED 13:38
DX: S06.9X1A Unspecified intracranial injury with loss of consciousness of 30 minutes or less, initial encounter (principal); W06.XXXA Fall from bed, initial encounter; R11.0 Nausea
CPT/HCPCS: 96372; 99282; 99284

== ENCOUNTER 2021-04-10 14:29 | Emergency (ER) | payer OTHER ==
[2021-04-10 14:39] VITALS: BP 146/97
--- NOTE | 2021-04-10 15:12 | ED Physician Documentation ---
PD HPI HEAD INJURY - Stated complaint Stated Complaint: HEAD INJ L SIDE - Chief complaint Chief Complaint: Trauma Hd/Nk - History obtained from History obtained from: Patient - Additional information Additional information: She was roughhousing with her high school age son last night around 5 PM. She tripped and fell and hit her head on the fireplace mantle. She felt stunned but there was no loss of consciousness. She has a mild to moderate headache now and bruising on the left side of her head. She presents requesting to rule out a concussion because she had another head injury a week or 2 ago. She vomiting, she does have a little bit of dizziness and nausea. 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 : Chronic bladder infection, Kidney stones, Other HEENT: None Psych: Depression, Anxiety, Bipolar disorder, Panic attacks, ADD/ADHD, Post traumatic stress disorder Musculoskeletal: Fibromyalgia, Chronic back pain Derm: None - Past Surgical History Past Surgical History: Yes Ortho: Spine surgery, Other /TOBACCO FEEDER CATCHER: section, Hysterectomy, Oophrectomy, Other HEENT: Tonsil/Adenoidectomy - Present Medications Home Medications: Ambulatory Orders Medication Instructions Recorded Confirmed Alprazolam [Xanax] 2 mg PO BID PRN 10/29/14 02/26/21 lamoTRIgine [LaMICtal] 150 mg PO BID 05/04/20 02/26/21 Dextroamphetamine/Amphetamine 30 mg PO DAILY 10/07/20 10/07/20 [Adderall 30 mg Tablet] Cyclobenzaprine [Flexeril] 10 mg PO TID PRN 02/26/21 02/26/21 DULoxetine [Cymbalta] 60 mg PO BID 02/26/21 02/26/21 Estrogens, Conjugated [Premarin] 0.625 mg PO DAILY 02/26/21 02/26/21 Nitrofurantoin [Macrobid] 100 mg ORAL DAILY 02/26/21 02/26/21 Pantoprazole Sodium 40 mg PO BID 02/26/21 02/26/21 Rimegepant Sulfate [Nurtec Odt] 75 mg PO DAILY PRN 02/26/21 02/26/21 Albuterol Sulf [Ventolin Hfa 2 - 3 puffs INH Q4HR PRN #1 inhaler 03/10/21 Inhaler] HYDROcod/ACETAM 5/325 [[place] 5/325] 1 ea PO Q6H PRN #10 tablet 03/10/21 Naproxen 250 mg PO TID 7 Days #15 tablet 03/10/21 Prochlorperazine Maleate 10 mg PO Q8H PRN #10 tab 04/03/21 [Compazine] - Allergies Allergies/Adverse Reactions: Allergies Allergy/AdvReac Type Severity Reaction Status Date / Time sulfamethoxazole Allergy Severe Hives Verified 04/10/21 14:39 [From Bactrim] trimethoprim [From Bactrim] Allergy Severe Hives Verified 04/10/21 14:39 azithromycin [From Zithromax] Allergy Anaphylaxis Verified 04/10/21 14:39 - Social History Does the pt smoke?: No Smoking Status: Never smoker Does the pt drink ETOH?: Yes Does the pt have substance abuse?: No - Immunizations Immunizations are current?: Yes - POLST Patient has POLST: No POLST Status: Full Code PD ED PE NORMAL - Vitals Vital signs reviewed: Yes - General General: Alert and oriented X 3, No acute distress - HEENT HEENT: PERRL, EOMI, Other (Bruising left forehead, no bony tenderness about the face or neck.) - Neck Neck: Supple, no meningeal sign, No bony TTP - Cardiac Cardiac: RRR, No murmur - Respiratory Respiratory: No respiratory distress, Clear bilaterally - Abdomen Abdomen: Non tender - Neuro Neuro: Alert and oriented X 3, Normal speech - Psych Psych: Normal mood, Normal affect Results - Vitals Vitals: Vital Signs - 24 hr 04/10/21 14:33 Temperature 36.3 C L Heart Rate 109 H Respiratory 18 Rate Blood Pressure 146/97 H O2 Saturation 95 Oxygen O2 Source Room air PD MEDICAL DECISION MAKING - ED course ED course: Given her symptoms and the time course, I think severe intracranial hemorrhage/i njury can be ruled out. She does have symptoms of mild concussion and discussed conservative management and prevention of further head injuries. Departure - Departure Disposition: 01 Home, Self Care Clinical Impression: Concussion Qualifiers: Encounter type: initial encounter Loss of consciousness presence/duration: without LOC Qualified Code(s): S06.0X0A - Concussion without loss of consciousness, initial encounter Condition: Good Record reviewed to determine appropriate education?: Yes Instructions: ED Concussion Comments: As discussed, try to avoid activities that would put you at risk for further head injuries until you are feeling completely better. Return for new or worsening symptoms.
== END 2021-04-10 15:18 | disposition home or self-care (01) ==
LOC: ED 14:29
DX: S06.0X0A Concussion without loss of consciousness, initial encounter (principal); S00.83XA Contusion of other part of head, initial encounter; W01.198A Fall on same level from slipping, tripping and stumbling with subsequent striking against other object, initial encounter; Y93.83 Activity, rough housing and horseplay
CPT/HCPCS: 99281; 99283

== ENCOUNTER 2021-06-09 00:24 | Outpatient (CLI) | payer OTHER | END 2021-06-09 00:25 | disposition critical access hospital (66) | LOC: EMS 00:24 | DX: R41.0 Disorientation, unspecified (principal); R53.1 Weakness; R47.89 Other speech disturbances | CPT/HCPCS: A0425; A0427 ==

== ENCOUNTER 2021-06-09 00:38 | Emergency (ER) | payer OTHER ==
--- NOTE | 2021-06-09 01:11 | CT Report ---
PROCEDURE: HEAD WO INDICATIONS: stroke sx TECHNIQUE: Noncontrast 4.5 mm thick angled axial sections acquired from the foramen magnum to the vertex. For r adiation dose reduction, the following was used: automated exposure control, adjustment of mA and/or kV according to patient size. COMPARISON: None. FINDINGS: Image quality: Excellent. CSF spaces: Basal cisterns are patent. No extra-axial fluid collections. Ventricles are normal in size and shape. Brain: No midline shift. No intracranial masses or hemorrhage. Jackson-white matter interface is norm al. Skull and face: Calvarium and visualized facial bones are intact, without suspicious lesions. Sinuses: Visualized sinuses and mastoids are clear. IMPRESSION: No acute intracranial disease process. Findings telephoned to Dr. Houston on 06/09/2021 at 0110 hours. Reviewed by: María Lemus MD, PhD on 06/09/2021 1:10 AM PDT Approved by: María Lemus MD, PhD on 06/09/2021 1:10 AM PDT Station ID: [id number]
[2021-06-09] MEDS ORDERED: IOVERSOL 320 100 ML VIAL IVP ONE ×2 (01:17→01:30)
--- NOTE | 2021-06-09 01:30 | CT Report ---
PROCEDURE: ANGIO HEAD W/WO INDICATIONS: L sided weakness CONTRAST: IV CONTRAST: Optiray 320 ml: 80 PO CONTRAST: *NO PO CONTRAST TECHNIQUE: Precontrast 4.5 mm thick angled axial sections acquired from the foramen magnum to the vertex. Afte r the administration of intravenous contrast, 1 mm thick sections acquired through the [place] of [place] is. Postcontrast 4.5 mm thick sections then re-acquired from the foramen magnum to the vertex. 3-di mensional gfsdcvp-jfsuyayxp-wpgqplrbej (MIP) and/or volume rendering reformats were acquired of the c entral intracranial vasculature. For radiation dose reduction, the following was used: automated ex posure control, adjustment of mA and/or kV according to patient size. COMPARISON: CT head 06/09/2021 FINDINGS: Image quality: Excellent. Anterior circulation: Intracranial internal carotid arteries are normal in size and flow. The flow within the paired anterior cerebral arteries is normal and symmetric. The flow within the middle cer ebral arteries is normal and symmetric. The anterior communicating artery is seen. No aneurysms are seen. Posterior circulation: Visualized portions of the vertebral arteries demonstrate normal caliber, and join to form a normal appearing basilar artery. Flow within the posterior cerebral arteries is norm al and symmetric. No aneurysms are seen. Dura CSF spaces: Ventricles are normal in size and shape. Basal cisterns are patent. No extra-axial flu id collections. Brain: No midline shift. No intracranial bleeds or masses. Jackson-white matter interface appears int act. Skull and face: Calvarium and facial bones appear intact, without suspicious lesions. Sinuses: Visualized sinuses and mastoids are clear. IMPRESSION: 1. No acute intracranial disease process. 2. No large vessel occlusion, vessel stenosis, vascular dissection or aneurysm. Reviewed by: María Lemus MD, PhD on 06/09/2021 1:29 AM PDT Approved by: María Lemus MD, PhD on 06/09/2021 1:29 AM PDT Station ID: [id number]
--- NOTE | 2021-06-09 01:35 | CT Report ---
PROCEDURE: ANGIO NECK W INDICATIONS: L sided weakness CONTRAST: IV CONTRAST: Optiray 320 ml: 80 PO CONTRAST: *NO PO CONTRAST TECHNIQUE: After the administration of intravenous contrast, 1.5 mm axial sections acquired from the aortic arch to the [place] of [place]. Coronal 3-D maximum intensity projection (MIP) and/or volume rendering ref ormats were then performed. For radiation dose reduction, the following was used: automated exposur e control, adjustment of mA and/or kV according to patient size. COMPARISON: CTA neck December 11, 2019 FINDINGS: Image quality: Excellent. Carotid system: The great vessels demonstrate a conventional anatomy as they arise from the aortic a rc. The origins of the common carotid arteries appear patent. The common carotid arteries demonstr ate normal calibers and courses. The bifurcation regions appear normal bilaterally. The internal ca rotid arteries demonstrate normal caliber and course. Posterior circulation: The origins of the vertebral arteries appear patent. The more superior porti ons of the vertebral arteries demonstrate normal course and caliber. They join to form a normal appe aring basilar artery. Soft tissues: Visualized neck soft tissues demonstrate no suspicious abnormalities. The thyroid is normal in size and there are no incidental findings. Bones: No suspicious bony lesions. Visualized cervical spine appears normally aligned. IMPRESSION: No large vessel occlusion, past or stenosis, vascular dissection or aneurysm. The estimate of stenosis included in the report of the imaging study was calculated using the NASCET method Reviewed by: María Lemus MD, PhD on 06/09/2021 1:33 AM PDT Approved by: María Lemus MD, PhD on 06/09/2021 1:33 AM PDT Station ID: [id number]
[2021-06-09] MEDS ORDERED: PROCHLORPERAZINE 10 MG/2 ML VIAL IVP STA (01:45)
[2021-06-09] MEDS ORDERED: SODIUM CHLORIDE 0.9% 1,000 ML IV STA (01:45)
[2021-06-09] MEDS ORDERED: KETOROLAC 30 MG/ML VIAL IVP STA (01:45)
[2021-06-09] MEDS ORDERED: LORazepam 2 MG/ML VIAL IVP STA (01:45)
[2021-06-09 01:46] LABS: BASOPHILS % (AUTO) 0.3 %; EOSINOPHILS # (AUTO) 0.1 10^3/uL (0.0-0.7); EOSINOPHILS % (AUTO) 0.5 %; HCT - HEMATOCRIT 39.2 % (37.0-47.0); LYMPHOCYTES # (AUTO) 3.4 10^3/uL (1.5-3.5); LYMPHOCYTES % (AUTO) 28.5 %; MEAN CORPUSCULAR HEMOGLOBIN 27.2 pg (27.0-31.0); MEAN CORPUSCULAR HGB CONC 33.2 g/dL (32.0-36.0); MEAN PLATELET VOLUME 8.9 fL (7.9-10.8); MONOCYTES # (AUTO) 0.8 10^3/uL (0.0-1.0); MONOCYTES % (AUTO) 6.6 %; NEUTROPHILS # (AUTO) 7.6 10^3/uL (1.5-6.6); NEUTROPHILS % (AUTO) 63.5 %; PLT - PLATELET COUNT 240 10^3/uL (130-450); RED BLOOD COUNT 4.78 10^6/uL (4.20-5.40); WHITE BLOOD COUNT 11.9 x10^3/uL (4.8-10.8)
[2021-06-09 01:52] LABS: INR 1.3 (0.8-1.2); PT - PROTHROMBIN TIME 14.7 secs (9.9-12.6)
[2021-06-09 01:58] LABS: ALBUMIN 4.3 g/dL (3.2-5.5); ALBUMIN/GLOBULIN RATIO 1.2 (1.0-2.2); BILIRUBIN,TOTAL 0.7 mg/dL (0.2-1.0); CALCIUM 9.5 mg/dL (8.5-10.3); CREATININE 0.6 mg/dL (0.4-1.0); POTASSIUM 3.5 mmol/L (3.5-5.0); TOTAL PROTEIN 7.9 g/dL (6.7-8.2)
[2021-06-09 02:41] VITALS: BP 108/76
--- NOTE | 2021-06-09 02:51 | ED Physician Documentation ---
History of Present Illness - Stated complaint Stated Complaint: STROKE - Chief complaint Chief Complaint: Neuro - History obtained from History obtained from: Patient, EMS - Additonal information Additional information: The pt is brought to the ED by EMS for CC of word-finding difficulty associated with headache. She also states she feels "disconnected" from her L side. She states she can move it, but she doesn't know that she is doing it. The pt states she developed a headache over the course of the day, which feels like her migraines. She has a h/o migraines which have occasionally been complicated by neurologic sx (hemiplegic or aphasic). All prior work-up has been negative for CVA. The pt tonight was on the phone with her significant other when she developed word-finding difficulty. Medics state this has continued throughout the ride. No other focal sx. Episode began about 30 min ago. No N/V. Pt reports feeling anxious. Review of Systems Ten Systems: 10 systems reviewed and negative Constitutional: reports: Reviewed and negative Eyes: reports: Reviewed and negative Ears: reports: Reviewed and negative Nose: reports: Reviewed and negative Throat: reports: Reviewed and negative Cardiac: reports: Reviewed and negative Respiratory: reports: Reviewed and negative GI: reports: Reviewed and negative : reports: Reviewed and negative Skin: reports: Reviewed and negative Musculoskeletal: reports: Reviewed and negative Neurologic: reports: Difficulty speaking, Headache Psychiatric: reports: Reviewed and negative Endocrine: reports: Reviewed and negative Immunocompromised: reports: Reviewed and negative PD PAST MEDICAL HISTORY - Past Medical History Past Medical History: Yes Cardiovascular: Pulmonary embolism, Other Respiratory: Pneumonia Neuro: CVA, Headaches, Migraines, Fainting Endocrine/Autoimmune: None GI: GERD 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 : Chronic bladder infection, Kidney stones, Other HEENT: None Psych: Depression, Anxiety, Bipolar disorder, Panic attacks, ADD/ADHD, Post traumatic stress disorder Musculoskeletal: Fibromyalgia, Chronic back pain Derm: None - Past Surgical History Past Surgical History: Yes Ortho: Spine surgery, Other /MICROSOFT BI CONSULTANT: section, Hysterectomy, Oophrectomy, Other HEENT: Tonsil/Adenoidectomy - Present Medications Home Medications: Ambulatory Orders Medication Instructions Recorded Confirmed Alprazolam [Xanax] 2 mg PO BID PRN 10/29/14 06/09/21 lamoTRIgine [LaMICtal] 150 mg PO BID 05/04/20 06/09/21 Dextroamphetamine/Amphetamine 30 mg PO DAILY 10/07/20 06/09/21 [Adderall 30 mg Tablet] Cyclobenzaprine [Flexeril] 10 mg PO TID PRN 02/26/21 02/26/21 DULoxetine [Cymbalta] 60 mg PO BID 02/26/21 02/26/21 Estrogens, Conjugated [Premarin] 0.625 mg PO DAILY 02/26/21 06/09/21 Nitrofurantoin [Macrobid] 100 mg ORAL DAILY 02/26/21 06/09/21 Pantoprazole Sodium 40 mg PO BID 02/26/21 06/09/21 Rimegepant Sulfate [Nurtec Odt] 75 mg PO DAILY PRN 02/26/21 02/26/21 Albuterol Sulf [Ventolin Hfa 2 - 3 puffs INH Q4HR PRN #1 inhaler 03/10/21 Inhaler] HYDROcod/ACETAM 5/325 [[place] 5/325] 1 ea PO Q6H PRN #10 tablet 03/10/21 - Allergies Allergies/Adverse Reactions: Allergies Allergy/AdvReac Type Severity Reaction Status Date / Time sulfamethoxazole Allergy Severe Hives Verified 04/10/21 14:39 [From Bactrim] trimethoprim [From Bactrim] Allergy Severe Hives Verified 04/10/21 14:39 azithromycin [From Zithromax] Allergy Anaphylaxis Verified 04/10/21 14:39 - Social History Does the pt smoke?: No Smoking Status: Never smoker Does the pt drink ETOH?: Yes Does the pt have substance abuse?: No - Immunizations Immunizations are current?: Yes - POLST Patient has POLST: No POLST Status: Full Code PD ED PE NORMAL - Vitals Vital signs reviewed: Yes - General General: Alert and oriented X 3, Well developed/nourished, Other (Appears anxious, otherwise NAD) - HEENT HEENT: Atraumatic, PERRL, EOMI, Moist mucous membranes - Neck Neck: Supple, no meningeal sign - Cardiac Cardiac: No murmur, Strong equal pulses, Other (tachycardic rate, regular rhythm) - Respiratory Respiratory: No respiratory distress, Clear bilaterally, Other (tachypneic) - Abdomen Abdomen: Normal bowel sounds, Soft, Non tender, Non distended - Derm Derm: Normal color, Warm and dry, No rash - Extremities Extremities: No deformity, No edema - Neuro Neuro: Alert and oriented X 3, form setter metal road forms 2-12 intact, No sensory deficit, Other (see free text) - Psych Psych: Normal affect, Other (anxious) PD ED PE EXPANDED - Free text exam Free text exam: The pt speaks haltingly, but with appropriate words. Sentences are simple, mainly leaving out articles and prepositions ("head started hurt", etc), intermixed with easily flowing, full sentences ("We were headin' out the door..." etc). Speech is clear, without slurring. She doesn't move her L arm or leg to commands, but moves them spontaneously. In between, L arm hangs limply at her side in the bed. However, when I move her arm, she assists with the movement, even moving ahead of my efforts. Results - Vitals Vitals: Oxygen O2 Source Room air - Labs Labs: Laboratory Tests 06/09/21 06/09/21 06/09/21 01:30 01:30 01:30 WBC 11.9 H RBC 4.78 Hgb 13.0 Hct 39.2 MCV 82.0 MCH 27.2 MCHC 33.2 RDW 14.0 Plt Count 240 MPV 8.9 Neut # (Auto) 7.6 H Lymph # (Auto) 3.4 [place] # (Auto) 0.8 Eos # (Auto) 0.1 Baso # (Auto) 0.0 Absolute Nucleated RBC 0.00 Nucleated RBC % 0.0 PT 14.7 H INR 1.3 H Sodium 137 Potassium 3.5 Chloride 101 Carbon Dioxide 20 L Anion Gap 16.0 H BUN 9 Creatinine 0.6 Estimated GFR (MDRD) 111 Glucose 137 H Calcium 9.5 Total Bilirubin 0.7 AST 76 H ALT 46 Alkaline Phosphatase 80 Total Protein 7.9 Albumin 4.3 Globulin 3.6 Albumin/Globulin Ratio 1.2 Lipase 27 - Rads (name of study) CT head Radiology: Final report received, EMP read indepedently, See rad report (neg) CTA head/neck Radiology: Final report received, EMP read indepedently, See rad report (nad) PD MEDICAL DECISION MAKING - ED course Complexity details: reviewed old records, reviewed results, re-evaluated patient, considered differential, d/w patient ED course: The pt was brought as a "Code Stroke" initially, and was sent for CT/CTA of the head and neck. These were all negative. She was treated symptomatically with IV fluids, Toradol, and Ativan, after which she showed almost immediate resolution of sx. I did not feel it was likely the pt had sustained a CVA/TIA, but rather, an atypical migraine, which she has had before. I felt the pt was stable for d/c home. We have discussed the usual indications for return. Departure - Departure Disposition: 01 Home, Self Care Clinical Impression: Hemiplegic migraine Qualifiers: Status migrainosus presence: without status migrainosus Intractability: not intractable Qualified Code(s): G43.409 - Hemiplegic migraine, not intractable, without status migrainosus Condition: Stable Instructions: ED Headache Migraine Comments: All of your CT scans look great. You have been treated today for migraine which is completely resolved your symptoms. Please be sure to get plenty of rest and plenty of fluids to drink. Discharge Date/Time: 06/09/21 03:03
== END 2021-06-09 03:03 | disposition home or self-care (01) ==
LOC: EDUNIT# → ED 00:38
DX: G43.409 Hemiplegic migraine, not intractable, without status migrainosus (principal)
CPT/HCPCS: 36415; 70450; 70496; 70498; 80053; 83690; 85025; 85610; 93005; 96374; 96375; 99283; 99284; J2060; Q9967

== ENCOUNTER 2021-06-17 18:27 | Emergency (ER) | payer OTHER ==
--- NOTE | 2021-06-17 19:26 | ED Physician Documentation ---
PD HPI UPPER EXT INJURY - Stated complaint Stated Complaint: LEFT WRIST INJURY - Chief complaint Chief Complaint: Trauma Ext - History obtained from History obtained from: Patient (Tripped and fell last night hitting a dresser with her left wrist with pain over the dorsal left wrist. 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 : Chronic bladder infection, Kidney stones, Other HEENT: None Psych: Depression, Anxiety, Bipolar disorder, Panic attacks, ADD/ADHD, Post traumatic stress disorder Musculoskeletal: Fibromyalgia, Chronic back pain Derm: None - Past Surgical History Past Surgical History: Yes Ortho: Spine surgery, Other /FLATWORK PRESSER: section, Hysterectomy, Oophrectomy, Other HEENT: Tonsil/Adenoidectomy - Present Medications Home Medications: Ambulatory Orders Medication Instructions Recorded Confirmed Alprazolam [Xanax] 2 mg PO BID PRN 10/29/14 06/09/21 lamoTRIgine [LaMICtal] 150 mg PO BID 05/04/20 06/09/21 Dextroamphetamine/Amphetamine 30 mg PO DAILY 10/07/20 06/09/21 [Adderall 30 mg Tablet] Cyclobenzaprine [Flexeril] 10 mg PO TID PRN 02/26/21 02/26/21 DULoxetine [Cymbalta] 60 mg PO BID 02/26/21 02/26/21 Estrogens, Conjugated [Premarin] 0.625 mg PO DAILY 02/26/21 06/09/21 Nitrofurantoin [Macrobid] 100 mg ORAL DAILY 02/26/21 06/09/21 Pantoprazole Sodium 40 mg PO BID 02/26/21 06/09/21 Rimegepant Sulfate [Nurtec Odt] 75 mg PO DAILY PRN 02/26/21 02/26/21 Albuterol Sulf [Ventolin Hfa 2 - 3 puffs INH Q4HR PRN #1 inhaler 03/10/21 Inhaler] HYDROcod/ACETAM 5/325 [[place] 5/325] 1 ea PO Q6H PRN #10 tablet 03/10/21 - Allergies Allergies/Adverse Reactions: Allergies Allergy/AdvReac Type Severity Reaction Status Date / Time sulfamethoxazole Allergy Severe Hives Verified 06/17/21 18:39 [From Bactrim] trimethoprim [From Bactrim] Allergy Severe Hives Verified 06/17/21 18:39 azithromycin [From Zithromax] Allergy Anaphylaxis Verified 06/17/21 18:39 - Social History Does the pt smoke?: No Smoking Status: Never smoker Does the pt drink ETOH?: Yes Does the pt have substance abuse?: No - Immunizations Immunizations are current?: Yes - POLST Patient has POLST: No POLST Status: Full Code PD ED PE NORMAL - Vitals Vital signs reviewed: Yes - General General: Alert and oriented X 3, No acute distress - Extremities Extremities: Other (Quite ecchymotic to the dorsal left wrist and tender of the distal radius and ulna. No snuffbox tenderness. Limited range of motion in flexion and extension but not absent.) - Neuro Neuro: Alert and oriented X 3, Normal speech Results - Vitals Vitals: Vital Signs - 24 hr 06/17/21 06/17/21 18:35 19:39 Temperature 37.0 C 36.7 C Heart Rate 126 H 98 Respiratory 18 16 Rate Blood Pressure 170/71 H 159/82 H O2 Saturation 97 98 Oxygen O2 Source Room air PD MEDICAL DECISION MAKING - ED course ED course: She presents with isolated wrist injury. No other stated complaints. X-rays negative. No clinical evidence of scaphoid fracture based on the location of her pain and tenderness. She is placed in a Velcro splint. Declines pain medications. Departure - Departure Disposition: 01 Home, Self Care Clinical Impression: Contusion of left wrist Condition: Good Record reviewed to determine appropriate education?: Yes Instructions: ED Sprain Wrist Comments: Tylenol and/or ibuprofen per package instructions as needed for pain. Return for new or worsening symptoms. Follow-up with your doctor in a week if not better. Discharge Date/Time: 06/17/21 19:42
--- NOTE | 2021-06-17 19:34 | XRAY Report ---
PROCEDURE: Wrist 4 View LT INDICATIONS: Trauma TECHNIQUE: 4 views of the wrist were acquired. COMPARISON: Forearm radiograph dated 09/12/2020 FINDINGS: Bones: No fractures or dislocations. No suspicious bony lesions. Scaphoid view: Scaphoid is grossly intact. Soft tissues: No suspicious soft tissue calcifications. IMPRESSION: No wrist fracture or dislocation. Reviewed by: Bryce Boateng MD on 06/17/2021 7:32 PM PDT Approved by: Bryce Boateng MD on 06/17/2021 7:32 PM PDT Station ID: [id number]
[2021-06-17 19:42] VITALS: BP 159/82
== END 2021-06-17 19:42 | disposition home or self-care (01) ==
LOC: ED 18:27
DX: S60.212A Contusion of left wrist, initial encounter (principal); W01.190A Fall on same level from slipping, tripping and stumbling with subsequent striking against furniture, initial encounter
CPT/HCPCS: 99282; 99283

== ENCOUNTER 2021-07-25 10:01 | Emergency (ER) | payer OTHER ==
[2021-07-25 10:39] LABS: BASOPHILS % (AUTO) 0.3 %; EOSINOPHILS # (AUTO) 0.1 10^3/uL (0.0-0.7); EOSINOPHILS % (AUTO) 2.3 %; HCT - HEMATOCRIT 38.7 % (37.0-47.0); HGB - HEMOGLOBIN 12.6 g/dL (12.0-16.0); LYMPHOCYTES # (AUTO) 2.6 10^3/uL (1.5-3.5); LYMPHOCYTES % (AUTO) 43.7 %; MEAN CORPUSCULAR HEMOGLOBIN 27.1 pg (27.0-31.0); MEAN CORPUSCULAR HGB CONC 32.6 g/dL (32.0-36.0); MEAN CORPUSCULAR VOLUME 83.2 fL (81.0-99.0); MONOCYTES # (AUTO) 0.2 10^3/uL (0.0-1.0); MONOCYTES % (AUTO) 3.8 %; NEUTROPHILS % (AUTO) 49.6 %; PLT - PLATELET COUNT 177 10^3/uL (130-450); RED BLOOD COUNT 4.65 10^6/uL (4.20-5.40); RED CELL DISTRIBUTION WIDTH 14.1 % (12.0-15.0)
[2021-07-25 10:55] LABS: BILIRUBIN,URINE NEGATIVE (NEGATIVE); CLARITY,URINE CLEAR (CLEAR); GLUCOSE, URINE (UA) 100 mg/dL (NEGATIVE); KETONES,URINE (UA) NEGATIVE (NEGATIVE); LEUKOCYTE ESTERASE, URINE NEGATIVE (NEGATIVE); NITRITE,URINE NEGATIVE (NEGATIVE); OCCULT BLOOD,URINE NEGATIVE (NEGATIVE); PH,URINE 5.5 PH (5.0-7.5); PROTEIN,URINE NEGATIVE (NEGATIVE); UROBILINOGEN,URINE 0.2 (NORMAL) E.U./dL (NORMAL)
[2021-07-25 10:59] LABS: ALBUMIN 4.2 g/dL (3.2-5.5); ALBUMIN/GLOBULIN RATIO 1.1 (1.0-2.2); BILIRUBIN,TOTAL 0.6 mg/dL (0.2-1.0); CALCIUM 9.4 mg/dL (8.5-10.3); CREATININE 0.5 mg/dL (0.4-1.0); POTASSIUM 3.8 mmol/L (3.5-5.0); TOTAL PROTEIN 8.2 g/dL (6.7-8.2)
--- NOTE | 2021-07-25 11:00 | ED Physician Documentation ---
PD HPI ABD PAIN - Stated complaint Stated Complaint: LOWER BACK, FEMALE - Chief complaint Chief Complaint: Back Pain - History obtained from History obtained from: Patient - History of Present Illness Timing - onset: Today, Last night Timing - details: Abrupt onset, Still present, Other (no injury (fall, lifting, bending)) Quality: Cramping, Aching, Pain Location: Other (bilateral lower back to flank area with wrapping around to lower abdomen, mostly right.) Radiation: Lower back Improved by: No: Laying still, Position Worsened by: Moving. No: Breathing, Palpation Associated symptoms: Nausea. No: Fever, Vomiting, Diarrhea, Constipation, Dysuria, Vaginal dc Similar symptoms before: Diagnosis (similar to kidney infections and stones in the past.) Review of Systems Constitutional: denies: Fever, Chills Nose: denies: Rhinorrhea / runny nose, Congestion Throat: denies: Sore throat Respiratory: denies: Cough GI: reports: Abdominal Pain, Nausea. 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 : Chronic bladder infection, Kidney stones, Other HEENT: None Psych: Depression, Anxiety, Bipolar disorder, Panic attacks, ADD/ADHD, Post traumatic stress disorder Musculoskeletal: Fibromyalgia, Chronic back pain Derm: None - Past Surgical History Past Surgical History: Yes Ortho: Spine surgery, Other /APPLICATION TESTER: section, Hysterectomy, Oophrectomy, Other HEENT: Tonsil/Adenoidectomy - Present Medications Home Medications: Ambulatory Orders Medication Instructions Recorded Confirmed Alprazolam [Xanax] 2 mg PO BID PRN 10/29/14 06/09/21 lamoTRIgine [LaMICtal] 150 mg PO BID 05/04/20 06/09/21 Dextroamphetamine/Amphetamine 30 mg PO DAILY 10/07/20 06/09/21 [Adderall 30 mg Tablet] Cyclobenzaprine [Flexeril] 10 mg PO TID PRN 02/26/21 02/26/21 DULoxetine [Cymbalta] 60 mg PO BID 02/26/21 02/26/21 Estrogens, Conjugated [Premarin] 0.625 mg PO DAILY 02/26/21 06/09/21 Nitrofurantoin [Macrobid] 100 mg ORAL DAILY 02/26/21 06/09/21 Pantoprazole Sodium 40 mg PO BID 02/26/21 06/09/21 Rimegepant Sulfate [Nurtec Odt] 75 mg PO DAILY PRN 02/26/21 02/26/21 Albuterol Sulf [Ventolin Hfa 2 - 3 puffs INH Q4HR PRN #1 inhaler 03/10/21 Inhaler] HYDROcod/ACETAM 5/325 [[place] 5/325] 1 ea PO Q6H PRN #10 tablet 03/10/21 Meloxicam [Mobic] 7.5 mg PO BID 10 Days #20 tablet 07/25/21 Oxycodone HCl/Acetaminophen 1 each PO Q6H PRN #12 tablet 07/25/21 [Percocet 10-325 mg Tablet] Phenazopyridine HCl [Pyridium] 100 mg PO TID PRN #15 tablet 07/25/21 - Allergies Allergies/Adverse Reactions: Allergies Allergy/AdvReac Type Severity Reaction Status Date / Time sulfamethoxazole Allergy Severe Hives Verified 07/25/21 10:10 [From Bactrim] trimethoprim [From Bactrim] Allergy Severe Hives Verified 07/25/21 10:10 azithromycin [From Zithromax] Allergy Anaphylaxis Verified 07/25/21 10:10 - Social History Does the pt smoke?: No Smoking Status: Never smoker Does the pt drink ETOH?: Yes Does the pt have substance abuse?: No - Immunizations Immunizations are current?: Yes - POLST Patient has POLST: No POLST Status: Full Code PD ED PE NORMAL - Vitals Vital signs reviewed: Yes - General General: Alert and oriented X 3, Well developed/nourished, Other (appears uncomfortable with pacing in room. Does not seem guarded with ROM of the back. ) - Cardiac Cardiac: RRR, No murmur - Respiratory Respiratory: Clear bilaterally - Abdomen Abdomen: Normal bowel sounds, Soft, Non tender, Non distended - Back Back: No CVA TTP, No spinal TTP, Other (not focally tender in back muscles. ) - Derm Derm: Normal color, Warm and dry, No rash Results - Vitals Vitals: Vital Signs - 24 hr 07/25/21 07/25/21 12:22 13:58 Temperature 36.2 C L Heart Rate 110 H 102 H Respiratory 16 18 Rate Blood Pressure 142/96 H 143/94 H O2 Saturation 94 98 Oxygen O2 Source Room air - Labs Labs: Laboratory Tests 07/25/21 07/25/21 07/25/21 10:30 10:30 10:39 WBC 6.0 RBC 4.65 Hgb 12.6 Hct 38.7 MCV 83.2 MCH 27.1 MCHC 32.6 RDW 14.1 Plt Count 177 MPV 9.0 Neut # (Auto) 3.0 Lymph # (Auto) 2.6 [place] # (Auto) 0.2 Eos # (Auto) 0.1 Baso # (Auto) 0.0 Absolute Nucleated RBC 0.00 Nucleated RBC % 0.0 Sodium 136 Potassium 3.8 Chloride 101 Carbon Dioxide 22 Anion Gap 13.0 BUN 9 Creatinine 0.5 Estimated GFR (MDRD) 137 Glucose 202 H Calcium 9.4 Total Bilirubin 0.6 AST 78 H ALT 48 Alkaline Phosphatase 79 Total Protein 8.2 Albumin 4.2 Globulin 4.0 Albumin/Globulin Ratio 1.1 Lipase 37 Urine Color YELLOW Urine Clarity CLEAR Urine pH 5.5 Ur Specific [place] 1.025 Urine Protein NEGATIVE Urine Glucose (UA) 100 H Urine Ketones NEGATIVE Urine Occult Blood NEGATIVE Urine Nitrite NEGATIVE Urine Bilirubin NEGATIVE Urine Urobilinogen 0.2 (NORMAL) Ur Leukocyte Esterase NEGATIVE Ur Microscopic Review NOT INDICATED Urine Culture Comments NOT INDICATED - Rads (name of study) KUB CT Radiology: Prelim report reviewed (no ureterolithiasis nor hydronephrosis. areas of decreased attenuation in liver, artifact versus large liver laceration. No free fluid.), See rad report PD MEDICAL DECISION MAKING - ED course Complexity details: reviewed results (patient without injury and not hurting in RUQ, not tender there. I therefore do not think need to repeat the CT with contrast to evaluate for potential liver laceration, per Radiology report. Main concerns were for kidney stones/hydro and these are not present. ), d/w patient Departure - Departure Disposition: 01 Home, Self Care Clinical Impression: Lower abdominal pain, Flank pain Condition: Stable Prescriptions: Meloxicam [Mobic] 7.5 mg PO BID 10 Days #20 tablet Oxycodone HCl/Acetaminophen [Percocet 10-325 mg Tablet] 1 each PO Q6H PRN #12 tablet PRN Reason: Pain Phenazopyridine HCl [Pyridium] 100 mg PO TID PRN #15 tablet PRN Reason: Abdominal Pain Comments: Your urine does not show any signs of infection. Your CT scan does not show any stones or swelling of the kidneys. This may be inflammatory related to the urinary tract such as interstitial cystitis with pressure. However also consider musculoskeletal back pain. Stay well-hydrated. Use meloxicam anti-inflammatory as directed over the next week. You could add Pyridium/phenazopyridine 3 times a day if needed for urinary discomfort. Stay well-hydrated. Continue your other usual medicines. Add Tylenol every 4-6 hours if needed for pain or oxycodone if needed for worse pain. This would be intended short-term. Recheck if not improving well over the next few days. I transmitted your prescriptions to the [facility] pharmacy in [place]. I am prescribing a short course of narcotic pain medication for you. These are potentially dangerous and addictive medications that should be used carefully. These medications may constipate you. Take an emsz-rsc-[id number] stool softener such as docusate twice daily with plenty of water while taking these medications. If you go 24 hours without a bowel movement, take [id number] MiraLAX, per package instructions. Do not drink or drive while taking these medications. If you received narcotic or sedating medications while in the emergency department do not drive for 24 hours. Store this medication in a safe, secure place and out of reach of children. It is a violation of federal law to give or sell this medication to another person or to use in a manner other than prescribed. The ED will not refill narcotic prescriptions, including prescriptions lost or stolen. You can dispose of unwanted medications at the [facility]'s office or at several pharmacies such as [facility]. Discharge Date/Time: 07/25/21 13:58
[2021-07-25] MEDS ORDERED: METOCLOPRAMIDE 10 MG/2 ML VIAL IVP STA (11:22)
[2021-07-25] MEDS ORDERED: KETOROLAC 30 MG/ML VIAL IVP STA (11:22)
[2021-07-25] MEDS ORDERED: HYDROmorphone 1 MG/ML CARPUJECT IVP STA (11:22)
--- NOTE | 2021-07-25 12:04 | CT Report ---
PROCEDURE: Abdomen/Pelvis WO INDICATIONS: falnk and lower abd pain TECHNIQUE: Noncontrast 5 mm thick sections acquired from the diaphragms to the symphysis. 5 mm coronal and sagi ttal reformats were then performed. For radiation dose reduction, the following was used: automated exposure control, adjustment of mA and/or kV according to patient size. COMPARISON: 08/02/2020. FINDINGS: Image quality: Excellent. ABDOMEN: Lung bases: Lung bases are clear. Heart size is normal. Solid organs: Significant hepatomegaly again noted. Craniocaudal dimension is slightly greater than 2 7 cm. Mild to moderate diffuse hepatic steatosis. Multiple areas of vague decreased attenuation are n oted in the liver. Cannot exclude extensive hepatic laceration. However, this is definite. There is n o evidence of identifiable liver hemorrhage. Splenomegaly, as before. Gallbladder is grossly unremark able Pancreas is normal in contours. No adrenal nodules. Kidneys are normal in size, without hydro nephrosis or nephrolithiasis. Peritoneum and bowel: Unenhanced bowel loops demonstrate normal wall thickness and caliber. Divertic ulosis without evidence of diverticulitis. No free fluid or air. Nodes and vessels: No retroperitoneal or mesenteric adenopathy by size criteria. Aorta and inferior vena cava are normal in caliber. Miscellaneous: No ventral hernias. PELVIS: Genitourinary: Bladder wall thickness is normal. Miscellaneous: No inguinal hernias or adenopathy. Uterus is surgically absent. Pelvic stimulator de vice. Bones: No suspicious bony lesions. No vertebral body compression fractures. IMPRESSION: 1. Marked hepatomegaly, fatty liver, splenomegaly. 2. Multiple areas of hypoattenuation. Cannot exclude hepatic laceration. Therefore, recommend CT abdo men and pelvis with contrast. Reviewed by: Jose Ramon MD on 07/25/2021 12:03 PM PDT Approved by: Jose Ramon MD on 07/25/2021 12:03 PM PDT Station ID: [id number]
[2021-07-25 13:58] VITALS: BP 143/94
== END 2021-07-25 13:58 | disposition home or self-care (01) ==
LOC: ED 10:01
DX: R10.30 Lower abdominal pain, unspecified (principal)
CPT/HCPCS: 36415; 74176; 80053; 81003; 83690; 85025; 96374; 96375; 99282; 99284; J1170; J2765; 81001; 87086

== ENCOUNTER 2021-08-18 09:38 | Emergency (ER) | payer OTHER ==
[2021-08-18] MEDS ORDERED: SODIUM CHLORIDE 0.9% 1,000 ML IV STA (10:02)
[2021-08-18] MEDS ORDERED: HALOPERIDOL 5 MG/ML VIAL IVP STA (10:09)
[2021-08-18] MEDS ORDERED: diphenhydrAMINE INJ 50 MG/ML VIAL IVP STA (10:10)
[2021-08-18] MEDS ORDERED: LORazepam 2 MG/ML VIAL IVP STA (10:11)
[2021-08-18 10:12] LABS: BASOPHILS % (AUTO) 0.4 %; EOSINOPHILS # (AUTO) 0.1 10^3/uL (0.0-0.7); EOSINOPHILS % (AUTO) 1.1 %; HGB - HEMOGLOBIN 12.9 g/dL (12.0-16.0); LYMPHOCYTES # (AUTO) 3.1 10^3/uL (1.5-3.5); LYMPHOCYTES % (AUTO) 38.7 %; MEAN CORPUSCULAR HEMOGLOBIN 26.8 pg (27.0-31.0); MEAN CORPUSCULAR HGB CONC 33.1 g/dL (32.0-36.0); MEAN CORPUSCULAR VOLUME 81.1 fL (81.0-99.0); MEAN PLATELET VOLUME 9.1 fL (7.9-10.8); MONOCYTES # (AUTO) 0.5 10^3/uL (0.0-1.0); MONOCYTES % (AUTO) 6.2 %; NEUTROPHILS # (AUTO) 4.2 10^3/uL (1.5-6.6); NEUTROPHILS % (AUTO) 52.8 %; PLT - PLATELET COUNT 224 10^3/uL (130-450); RED BLOOD COUNT 4.81 10^6/uL (4.20-5.40); RED CELL DISTRIBUTION WIDTH 14.1 % (12.0-15.0); WHITE BLOOD COUNT 7.9 x10^3/uL (4.8-10.8)
--- NOTE | 2021-08-18 10:13 | ED Physician Documentation ---
PD HPI CHEST PAIN - Stated complaint Stated Complaint: CHEST PX - Chief complaint Chief Complaint: Cardiac - Additional information Additional information: Patient is a 40-year-old female presenting to the emergency department with chest pressure. Symptoms ongoing x2 days. Reports has never had symptoms like this before. Multiple chronic medical issues. Reports a history of diabetes however states that she is discontinued her metformin because it "caused suicidal ideation". States that she has been attempting to increase daily exercise and manage her diabetes with diet alone. Reports history of stroke and PE. 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 : Chronic bladder infection, Kidney stones, Other HEENT: None Psych: Depression, Anxiety, Bipolar disorder, Panic attacks, ADD/ADHD, Post traumatic stress disorder Musculoskeletal: Fibromyalgia, Chronic back pain Derm: None - Past Surgical History Past Surgical History: Yes Ortho: Spine surgery, Other /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: section, Hysterectomy, Oophrectomy, Other HEENT: Tonsil/Adenoidectomy - Present Medications Home Medications: Ambulatory Orders Medication Instructions Recorded Confirmed Alprazolam [Xanax] 2 mg PO BID PRN 10/29/14 06/09/21 lamoTRIgine [LaMICtal] 150 mg PO BID 05/04/20 06/09/21 Dextroamphetamine/Amphetamine 30 mg PO DAILY 10/07/20 06/09/21 [Adderall 30 mg Tablet] Cyclobenzaprine [Flexeril] 10 mg PO TID PRN 02/26/21 02/26/21 DULoxetine [Cymbalta] 60 mg PO BID 02/26/21 02/26/21 Estrogens, Conjugated [Premarin] 0.625 mg PO DAILY 02/26/21 06/09/21 Nitrofurantoin [Macrobid] 100 mg ORAL DAILY 02/26/21 06/09/21 Pantoprazole Sodium 40 mg PO BID 02/26/21 06/09/21 Rimegepant Sulfate [Nurtec Odt] 75 mg PO DAILY PRN 02/26/21 02/26/21 Albuterol Sulf [Ventolin Hfa 2 - 3 puffs INH Q4HR PRN #1 inhaler 03/10/21 Inhaler] HYDROcod/ACETAM 5/325 [[place] 5/325] 1 ea PO Q6H PRN #10 tablet 03/10/21 Meloxicam [Mobic] 7.5 mg PO BID 10 Days #20 tablet 07/25/21 Oxycodone HCl/Acetaminophen 1 each PO Q6H PRN #12 tablet 07/25/21 [Percocet 10-325 mg Tablet] Phenazopyridine HCl [Pyridium] 100 mg PO TID PRN #15 tablet 07/25/21 - Allergies Allergies/Adverse Reactions: Allergies Allergy/AdvReac Type Severity Reaction Status Date / Time sulfamethoxazole Allergy Severe Hives Verified 08/18/21 09:49 [From Bactrim] trimethoprim [From Bactrim] Allergy Severe Hives Verified 08/18/21 09:49 azithromycin [From Zithromax] Allergy Anaphylaxis Verified 08/18/21 09:49 - Social History Does the pt smoke?: No Smoking Status: Never smoker Does the pt drink ETOH?: Yes Does the pt have substance abuse?: No - Immunizations Immunizations are current?: Yes - POLST Patient has POLST: No POLST Status: Full Code PD ED PE NORMAL - Vitals Vital signs reviewed: Yes (Tachycardic) - General General: Alert and oriented X 3, Other (Patient appears tearful, breathing heavily. 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, No motor deficit, No sensory deficit - Psych Psych: Other (Tearful and anxious affect) Results - Vitals Vitals: Vital Signs - 24 hr 08/18/21 08/18/21 08/18/21 09:46 09:58 10:58 Temperature 37.6 C Heart Rate 114 H 114 H 115 H Respiratory 22 29 H 32 H Rate Blood Pressure 142/124 H 142/124 H 185/149 H O2 Saturation 99 100 98 08/18/21 08/18/21 08/18/21 11:00 11:57 12:04 Temperature Heart Rate 112 H 110 H 115 H Respiratory 28 H 22 Rate Blood Pressure 187/126 H 149/111 H O2 Saturation 99 100 100 Oxygen O2 Source Room air - EKG (time done) 0955 Rate: Rate (enter#) (113) Rhythm: NSR [employer]: Normal Intervals: Normal [place] QRS: Normal Ischemia: Normal ST segments Other comments: Other comments (Borderline QT prolongation) Compare to prior EKG: Unchanged from prior EKG - Labs Labs: Laboratory Tests 08/18/21 08/18/21 08/18/21 09:55 09:55 09:55 WBC 7.9 RBC 4.81 Hgb 12.9 Hct 39.0 MCV 81.1 MCH 26.8 L MCHC 33.1 RDW 14.1 Plt Count 224 MPV 9.1 Neut # (Auto) 4.2 Lymph # (Auto) 3.1 [place] # (Auto) 0.5 Eos # (Auto) 0.1 Baso # (Auto) 0.0 Absolute Nucleated RBC 0.00 Nucleated RBC % 0.0 D-Dimer VBG pH VBG pCO2 VBG pO2 VBG HCO3 VBG Total CO2 VBG O2 Saturation VBG Base Excess Sodium 138 Potassium 3.8 Chloride 101 Carbon Dioxide 20 L Anion Gap 17.0 H BUN 9 Creatinine 0.6 Estimated GFR (MDRD) 111 Glucose 174 H Calcium 9.8 Total Bilirubin 0.5 AST 115 H ALT 61 H Alkaline Phosphatase 87 Troponin I High Sens 3.2 Total Protein 8.4 H Albumin 4.3 Globulin 4.1 Albumin/Globulin Ratio 1.0 Lipase 35 08/18/21 08/18/21 10:10 11:34 WBC RBC Hgb Hct MCV MCH MCHC RDW Plt Count MPV Neut # (Auto) Lymph # (Auto) [place] # (Auto) Eos # (Auto) Baso # (Auto) Absolute Nucleated RBC Nucleated RBC % D-Dimer < 200.0 L VBG pH 7.598 H VBG pCO2 20.3 L VBG pO2 210.3 H VBG HCO3 19.4 L VBG Total CO2 20.0 L VBG O2 Saturation 99.1 H VBG Base Excess 0.0 Sodium Potassium Chloride Carbon Dioxide Anion Gap BUN Creatinine Estimated GFR (MDRD) Glucose Calcium Total Bilirubin AST ALT Alkaline Phosphatase Troponin I High Sens Total Protein Albumin Globulin Albumin/Globulin Ratio Lipase PD MEDICAL DECISION MAKING - ED course Complexity details: reviewed results, re-evaluated patient, d/w patient ED course: Patient is a 32-year-old female presenting to the emergency department with a chief complaint of chest pressure ongoing x2 days. Afebrile, hemodynamic stable on arrival to the emergency department. EKG is on above was negative for indications of acute cardiac ischemia or dysrhythmia however did have a very minimal borderline elevation in QTC. This is likely driven by patient's current medications which includeCymbalta and lamotrigine.Troponin were negative here in the emergency department as well as her D-dimer. Her chest x-ray was nonacute. She was given Ativan for nausea and anxiety here in the emergency department. She did report a brief episode of discomfort after receiving these medications and was subsequently given a dose of Benadryl which did help her with these symptoms. She regularly takes Ativan and lorazepam at home and I do not believe that this represents a true allergy. At this time a clear etiology for the patient's symptoms is unsure however there does not appear to be a life- threatening medical cause. I do suspect that anxiety could be a strong contributing factor to her presentation. I will discharge her for follow-up with primary care at this time. Otherwise clear return precautions and follow- up instructions are given prior to discharge. Addendum: I was called to the patient's room shortly after she had had IV Ativan administered. She was expressing anxiety and feelings of agitation and combativeness. She was subsequently given a dose of her home Xanax as well as a dose of Reglan for nausea. She was evaluated shortly after this event and was found to be resting comfortably. There was no indication of skin eruption, respiratory distress, respiratory failure or circulatory collapse associated with this howeverI will add lorazepam to her list of allergiesIf she seems at least modestly intolerant to it.. Final clinical impression, chest pain. Departure - Departure Clinical Impression: Chest pain, Panic attack Instructions: ED Chest Pain Atypical Unkn Cause Comments: Thank you for allowing us to care for you today at [facility]. We will be adding lorazepam to your list of allergies however it is important for you to be aware that you are intolerant to this medication. It is also known as Ativan. 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 In the emergency department today you are evaluated for any possible life-threatening medical emergency. All the testing performed in the emergency department including your EKG, blood work and chest x-ray were all very reassuring. There does not appear to be a life-threatening cause for your symptoms however I would like you to follow-up with your primary care doctor soon as possible for further testing. Please continue take all of your current medications as prescribed. Please drink plenty fluids and get plenty of rest over the course of the next few days. If anytime you develop any new or worsening symptoms please not hesitate to return to the emergency department.
--- NOTE | 2021-08-18 10:18 | XRAY Report ---
PROCEDURE: Chest 1 View X-Ray INDICATIONS: Chest pain TECHNIQUE: One view of the chest was acquired. COMPARISON: 03/10/2021. FINDINGS: Surgical changes and devices: None. Lungs and pleura: No pleural effusions or pneumothorax. Lungs are clear. Mediastinum: Mediastinal contours appear normal. Heart size is normal. Bones and chest wall: No suspicious bony lesions. Overlying soft tissues appear unremarkable. IMPRESSION: No acute cardiopulmonary disease process. Reviewed by: María Lemus MD, PhD on 08/18/2021 10:17 AM PDT Approved by: María Lemus MD, PhD on 08/18/2021 10:17 AM PDT Station ID: [id number]
[2021-08-18 10:23] LABS: ALBUMIN 4.3 g/dL (3.2-5.5); BILIRUBIN,TOTAL 0.5 mg/dL (0.2-1.0); CALCIUM 9.8 mg/dL (8.5-10.3); CREATININE 0.6 mg/dL (0.4-1.0); POTASSIUM 3.8 mmol/L (3.5-5.0); TOTAL PROTEIN 8.4 g/dL (6.7-8.2)
[2021-08-18] MEDS ORDERED: diphenhydrAMINE INJ 50 MG/ML VIAL IM STA (10:57)
[2021-08-18 11:45] LABS: VBG PH 7.598 (7.31-7.41)
[2021-08-18 11:46] LABS: VBG HCO3 19.4 mmol/L (23-28); VBG OXYGEN SATURATION 99.1 % (60-80); VBG PCO2 20.3 mmHg (41-51); VBG PO2 210.3 mmHg (25-47)
[2021-08-18] MEDS ORDERED: METOCLOPRAMIDE 10 MG/2 ML VIAL IVP STA (12:07)
[2021-08-18] MEDS ORDERED: ALPRAZolam 0.25 MG TABLET PO STA (12:08)
[2021-08-18 13:15] VITALS: BP 136/88
== END 2021-08-18 13:44 | disposition home or self-care (01) ==
LOC: ED 09:38
DX: R07.9 Chest pain, unspecified (principal); F41.0 Panic disorder [episodic paroxysmal anxiety]; E11.9 Type 2 diabetes mellitus without complications
CPT/HCPCS: 36415; 71045; 80053; 82803; 83690; 84484; 85025; 85379; 93005; 96374; 96375; 96376; 99281; 99284; A9270; J1200; J2060; J2765

== ENCOUNTER 2021-08-19 11:50 | Outpatient (CLI) | payer OTHER | END 2021-08-19 11:51 | disposition critical access hospital (66) | LOC: EMS 11:50 | DX: R07.9 Chest pain, unspecified (principal); R10.9 Unspecified abdominal pain; R11.0 Nausea; R42 Dizziness and giddiness | CPT/HCPCS: A0425; A0429 ==

== ENCOUNTER 2021-08-19 12:20 | Emergency (ER) | payer OTHER ==
[2021-08-19] MEDS ORDERED: HALOPERIDOL 5 MG/ML VIAL IVP STA (13:03)
[2021-08-19] MEDS ORDERED: MAG HYDROX/AL HYDROX/SIMETH 30 ML UDC PO STA (13:03)
[2021-08-19] MEDS ORDERED: HYDROmorphone 1 MG/ML CARPUJECT IVP STA (13:03)
[2021-08-19] MEDS ORDERED: LIDOCAINE VISCOUS 2% 15 ML UDC MM STA (13:03)
[2021-08-19 13:08] LABS: BASOPHILS % (AUTO) 0.2 %; EOSINOPHILS # (AUTO) 0.2 10^3/uL (0.0-0.7); EOSINOPHILS % (AUTO) 2.3 %; HCT - HEMATOCRIT 37.3 % (37.0-47.0); HGB - HEMOGLOBIN 12.3 g/dL (12.0-16.0); LYMPHOCYTES # (AUTO) 2.4 10^3/uL (1.5-3.5); LYMPHOCYTES % (AUTO) 35.9 %; MEAN CORPUSCULAR HEMOGLOBIN 27.3 pg (27.0-31.0); MEAN CORPUSCULAR VOLUME 82.9 fL (81.0-99.0); MEAN PLATELET VOLUME 8.9 fL (7.9-10.8); MONOCYTES # (AUTO) 0.3 10^3/uL (0.0-1.0); MONOCYTES % (AUTO) 4.7 %; NEUTROPHILS # (AUTO) 3.7 10^3/uL (1.5-6.6); NEUTROPHILS % (AUTO) 56.3 %; PLT - PLATELET COUNT 190 10^3/uL (130-450); WHITE BLOOD COUNT 6.6 x10^3/uL (4.8-10.8)
--- NOTE | 2021-08-19 13:08 | ED Physician Documentation ---
PD HPI CHEST PAIN - Stated complaint Stated Complaint: CHEST PAIN - Chief complaint Chief Complaint: Cardiac - History obtained from History obtained from: Patient - Additional information Additional information: 40-year-old woman presents with chest pain feeling like heartburn has been going on for the last 3 days. It is a hollow feeling in the lower sternum/upper abdomen. She tried Pepto-Bismol, Maalox, and over the other [id number] medications without relief. Seen by my partner yesterday with work-up negative including D-dimer and troponin. Only pertinent positive finding was a resp iratory alkalosis consistent with hyperventilation. Review of Systems Ten Systems: 10 systems reviewed and negative Constitutional: denies: Fever, Chills Cardiac: reports: Chest pain / pressure. denies: Palpitations, Pedal edema, Calf pain Respiratory: reports: Dyspnea. denies: Cough GI: reports: Abdominal Pain, Nausea. 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: section, Hysterectomy, Oophrectomy, Other HEENT: Tonsil/Adenoidectomy - Present Medications Home Medications: Ambulatory Orders Medication Instructions Recorded Confirmed Alprazolam [Xanax] 2 mg PO BID PRN 10/29/14 06/09/21 lamoTRIgine [LaMICtal] 150 mg PO BID 05/04/20 06/09/21 Dextroamphetamine/Amphetamine 30 mg PO DAILY 10/07/20 06/09/21 [Adderall 30 mg Tablet] Cyclobenzaprine [Flexeril] 10 mg PO TID PRN 02/26/21 02/26/21 DULoxetine [Cymbalta] 60 mg PO BID 02/26/21 02/26/21 Estrogens, Conjugated [Premarin] 0.625 mg PO DAILY 02/26/21 06/09/21 Nitrofurantoin [Macrobid] 100 mg ORAL DAILY 02/26/21 06/09/21 Pantoprazole Sodium 40 mg PO BID 02/26/21 06/09/21 Rimegepant Sulfate [Nurtec Odt] 75 mg PO DAILY PRN 02/26/21 02/26/21 Albuterol Sulf [Ventolin Hfa 2 - 3 puffs INH Q4HR PRN #1 inhaler 03/10/21 Inhaler] HYDROcod/ACETAM 5/325 [[place] 5/325] 1 ea PO Q6H PRN #10 tablet 03/10/21 Meloxicam [Mobic] 7.5 mg PO BID 10 Days #20 tablet 07/25/21 Oxycodone HCl/Acetaminophen 1 each PO Q6H PRN #12 tablet 07/25/21 [Percocet 10-325 mg Tablet] Phenazopyridine HCl [Pyridium] 100 mg PO TID PRN #15 tablet 07/25/21 Magic Mouthwash 10 ml PO Q4H PRN #120 ml 08/19/21 Sucralfate [Carafate] 1 gm PO ACHS #60 tablet 08/19/21 - Allergies Allergies/Adverse Reactions: Allergies Allergy/AdvReac Type Severity Reaction Status Date / Time sulfamethoxazole Allergy Severe Hives Verified 08/19/21 12:28 [From Bactrim] trimethoprim [From Bactrim] Allergy Severe Hives Verified 08/19/21 12:28 azithromycin [From Zithromax] Allergy Anaphylaxis Verified 08/19/21 12:28 lorazepam AdvReac Headache Verified 08/19/21 12:28 - Social History Does the pt smoke?: No Smoking Status: Never smoker Does the pt drink ETOH?: Yes Does the pt have substance abuse?: No - Immunizations Immunizations are current?: Yes - POLST Patient has POLST: No POLST Status: Full Code PD ED PE NORMAL - Vitals Vital signs reviewed: Yes - General General: Alert and oriented X 3, No acute distress - HEENT HEENT: PERRL, EOMI - Neck Neck: Supple, no meningeal sign, No bony TTP - Cardiac Cardiac: No murmur, Other (Modest resting tachycardia) - Respiratory Respiratory: No respiratory distress, Clear bilaterally - Abdomen Abdomen: Soft, Non tender - Derm Derm: Normal color, Warm and dry - Extremities Extremities: No edema, No calf tenderness / cord - Neuro Neuro: Alert and oriented X 3, Normal speech Results - Vitals Vitals: Vital Signs - 24 hr 08/19/21 08/19/21 12:28 12:31 Temperature 36.5 C 36.5 C Heart Rate 100 100 Respiratory 20 20 Rate Blood Pressure 150/100 H 150/100 H O2 Saturation 100 100 Oxygen O2 Source Room air - EKG (time done) 1228 Rate: Rate (enter#) (111) Rhythm: Sinus tachycardia [place]: Normal Intervals: Normal [place] QRS: Normal Ischemia: Non specific changes Compare to prior EKG: Unchanged from prior EKG (No change from yesterday) Computer interpretation: Agree with computer - Labs Labs: Laboratory Tests 08/19/21 08/19/21 08/19/21 13:00 13:00 13:00 WBC 6.6 RBC 4.50 Hgb 12.3 Hct 37.3 MCV 82.9 MCH 27.3 MCHC 33.0 RDW 14.0 Plt Count 190 MPV 8.9 Neut # (Auto) 3.7 Lymph # (Auto) 2.4 [place] # (Auto) 0.3 Eos # (Auto) 0.2 Baso # (Auto) 0.0 Absolute Nucleated RBC 0.00 Nucleated RBC % 0.0 Sodium 139 Potassium 3.6 Chloride 104 Carbon Dioxide 22 Anion Gap 13.0 BUN 9 Creatinine 0.5 Estimated GFR (MDRD) 137 Glucose 138 H Calcium 9.5 Total Bilirubin 0.5 AST 119 H ALT 66 H Alkaline Phosphatase 87 Troponin I High Sens 3.1 Total Protein 7.9 Albumin 4.1 Globulin 3.8 Albumin/Globulin Ratio 1.1 Lipase 34 Procedures - General procedure General procedure: She is notoriously difficult for IV access and I personally placed a long 22- gauge IV in the right antecubital fossa using real-time ultrasound guidance with ChloraPrep which flushed and jaden well. PD MEDICAL DECISION MAKING - ED course ED course: 40-year-old woman with epigastric/chest pain. Status post pretty complete work- up yesterday and still normal today without changes. [place] much better after a GI cocktail and Haldol and Dilaudid. Labs relatively unremarkable. Very mild transaminitis which is chronic looking at old labs. Departure - Departure Disposition: 01 Home, Self Care Clinical Impression: GERD (gastroesophageal reflux disease), Atypical chest pain Condition: Good Record reviewed to determine appropriate education?: Yes Instructions: ED Chest Pain NonCardiac Prescriptions: Sucralfate [Carafate] 1 gm PO ACHS #60 tablet Magic Mouthwash 10 ml PO Q4H PRN #120 ml PRN Reason: stomach pain Comments: As discussed, do not take sucralfate with an hour or 2 of your other medications as it will render the other medications less effective. Return for new or worsening symptoms. Follow-up with your doctor next week for recheck. Rest assured that your heart work-up today is still normal as it was yesterday. Continue your omeprazole twice a day.
[2021-08-19] MEDS ORDERED: SODIUM CHLORIDE 0.9% 1,000 ML IV STA (13:29)
[2021-08-19 13:31] LABS: ALBUMIN 4.1 g/dL (3.2-5.5); ALBUMIN/GLOBULIN RATIO 1.1 (1.0-2.2); BILIRUBIN,TOTAL 0.5 mg/dL (0.2-1.0); CALCIUM 9.5 mg/dL (8.5-10.3); CREATININE 0.5 mg/dL (0.4-1.0); POTASSIUM 3.6 mmol/L (3.5-5.0); TOTAL PROTEIN 7.9 g/dL (6.7-8.2)
[2021-08-19 14:14] VITALS: BP 119/70
== END 2021-08-19 14:14 | disposition home or self-care (01) ==
LOC: EDUNIT# → ED 12:20
DX: K21.9 Gastro-esophageal reflux disease without esophagitis (principal); R07.89 Other chest pain
CPT/HCPCS: 36415; 80053; 83690; 84484; 85025; 93005; 96374; 96375; 99284; A9270; J1170

== ENCOUNTER 2021-09-30 22:57 | Emergency (ER) | payer OTHER ==
[2021-09-30 23:09] VITALS: BP 189/154
[2021-09-30 23:32] LABS: BASOPHILS % (AUTO) 0.4 %; EOSINOPHILS # (AUTO) 0.2 10^3/uL (0.0-0.7); EOSINOPHILS % (AUTO) 2.6 %; HCT - HEMATOCRIT 41.6 % (37.0-47.0); HGB - HEMOGLOBIN 13.5 g/dL (12.0-16.0); LYMPHOCYTES # (AUTO) 3.2 10^3/uL (1.5-3.5); LYMPHOCYTES % (AUTO) 43.7 %; MEAN CORPUSCULAR HEMOGLOBIN 26.7 pg (27.0-31.0); MEAN CORPUSCULAR HGB CONC 32.5 g/dL (32.0-36.0); MEAN CORPUSCULAR VOLUME 82.2 fL (81.0-99.0); MONOCYTES # (AUTO) 0.4 10^3/uL (0.0-1.0); MONOCYTES % (AUTO) 5.4 %; NEUTROPHILS # (AUTO) 3.5 10^3/uL (1.5-6.6); NEUTROPHILS % (AUTO) 47.4 %; PLT - PLATELET COUNT 194 10^3/uL (130-450); RED BLOOD COUNT 5.06 10^6/uL (4.20-5.40); RED CELL DISTRIBUTION WIDTH 14.2 % (12.0-15.0); WHITE BLOOD COUNT 7.4 x10^3/uL (4.8-10.8)
[2021-10-01 00:06] LABS: ACETAMINOPHEN < 10 ug/mL (10-30); ALBUMIN 4.3 g/dL (3.2-5.5); ALKALINE PHOSPHATASE 87 IU/L (42-121); ALT ALANINE AMINOTRANSFERASE 60 IU/L (10-60); AST ASPARTATE AMINOTRANSFERASE 85 IU/L (10-42); BILIRUBIN,TOTAL 0.4 mg/dL (0.2-1.0); BUN - BLOOD UREA NITROGEN 14 mg/dL (6-20); CALCIUM 9.5 mg/dL (8.5-10.3); CARBON DIOXIDE - CO2 23 mmol/L (21-32); CHLORIDE 101 mmol/L (101-111); CREATININE 0.5 mg/dL (0.4-1.0); ETOH - ETHANOL < 5.0 mg/dL; GFR - MDRD 137 (>89); GLUCOSE 256 mg/dL (70-100); LIPASE 39 U/L (22-51); SALICYLATE < 6.0 mg/dL; SODIUM 137 mmol/L (135-145); TOTAL PROTEIN 8.4 g/dL (6.7-8.2)
== END 2021-10-01 00:14 | disposition left against medical advice (07) ==
LOC: ED 22:57
DX: Z53.21 Procedure and treatment not carried out due to patient leaving prior to being seen by health care provider (principal)
CPT/HCPCS: 36415; 80053; 80307; 80320; 80329; 83690; 84443; 85025

== ENCOUNTER 2021-12-22 11:55 | Outpatient (CLI) | payer OTHER | END 2021-12-22 11:56 | disposition short-term general hospital (02) | LOC: EMS 11:55 | DX: R53.1 Weakness (principal); R29.810 Facial weakness; R47.81 Slurred speech; R41.0 Disorientation, unspecified; R51.9 Headache, unspecified; I10 Essential (primary) hypertension; R00.0 Tachycardia, unspecified | CPT/HCPCS: A0425; A0429 ==

== ENCOUNTER 2022-02-14 10:31 | Emergency (ER) | payer OTHER ==
[2022-02-14] MEDS ORDERED: ONDANSETRON 4 MG/2 ML VIAL IVP STA (11:17)
[2022-02-14] MEDS ORDERED: KETOROLAC 15 MG/ML VIAL IVP STA (11:17)
[2022-02-14] MEDS ORDERED: SODIUM CHLORIDE 0.9% 1,000 ML IV STA (11:17)
[2022-02-14] MEDS ORDERED: HYDROmorphone 1 MG/ML CARPUJECT IVP STA ×2 (11:17→12:14)
[2022-02-14 11:28] LABS: BILIRUBIN,URINE NEGATIVE (NEGATIVE); GLUCOSE, URINE (UA) >=1000 mg/dL (NEGATIVE); KETONES,URINE (UA) NEGATIVE (NEGATIVE); LEUKOCYTE ESTERASE, URINE MODERATE (NEGATIVE); NITRITE,URINE POSITIVE (NEGATIVE); OCCULT BLOOD,URINE MODERATE (NEGATIVE); PROTEIN,URINE 100 mg/dL (NEGATIVE); UROBILINOGEN,URINE 0.2 (NORMAL) E.U./dL (NORMAL)
[2022-02-14 11:29] LABS: BASOPHILS % (AUTO) 0.4 %; EOSINOPHILS # (AUTO) 0.2 10^3/uL (0.0-0.7); EOSINOPHILS % (AUTO) 1.7 %; HCT - HEMATOCRIT 40.4 % (37.0-47.0); HGB - HEMOGLOBIN 13.3 g/dL (12.0-16.0); LYMPHOCYTES # (AUTO) 3.1 10^3/uL (1.5-3.5); LYMPHOCYTES % (AUTO) 33.5 %; MEAN CORPUSCULAR HEMOGLOBIN 26.4 pg (27.0-31.0); MEAN CORPUSCULAR HGB CONC 32.9 g/dL (32.0-36.0); MEAN CORPUSCULAR VOLUME 80.3 fL (81.0-99.0); MEAN PLATELET VOLUME 9.3 fL (7.9-10.8); MONOCYTES # (AUTO) 0.6 10^3/uL (0.0-1.0); MONOCYTES % (AUTO) 6.4 %; NEUTROPHILS # (AUTO) 5.4 10^3/uL (1.5-6.6); NEUTROPHILS % (AUTO) 57.4 %; PLT - PLATELET COUNT 179 10^3/uL (130-450); RED BLOOD COUNT 5.03 10^6/uL (4.20-5.40); RED CELL DISTRIBUTION WIDTH 14.6 % (12.0-15.0); WHITE BLOOD COUNT 9.4 x10^3/uL (4.8-10.8)
[2022-02-14 11:36] LABS: CLARITY,URINE SL. CLOUDY (CLEAR)
[2022-02-14 11:37] LABS: BACTERIA,URINE Moderate /HPF (None Seen); SQUAMOUS EPITHELIAL CELL,UR MOD Squamous (<= Few); WBC,URINE >25 /HPF (0-5)
--- NOTE | 2022-02-14 11:43 | ED Physician Documentation ---
PD HPI ABD PAIN - Stated complaint Stated Complaint: BACK PX/NAUSEA - Chief complaint Chief Complaint: Abd Pain - History obtained from History obtained from: Patient - Additional information Additional information: 41-year-old with history of hysterectomy, bladder mesh and frequent UTIs used to be on Macrobid for prophylaxis but was stopped a few months ago. Starting 3 days ago she developed bilateral hip pain, urethral pain and frequency. Then over the last couple of days has developed bilateral low back pain nausea, fever to 101 last night. She has been taking Pyridium which is not helpful. Pain is worse with movements. Review of Systems Constitutional: reports: Fever, Chills, Fatigue GI: reports: Nausea, Diarrhea (Once yesterday). 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: None : Chronic bladder infection, Kidney stones, Other HEENT: None Psych: Depression, Anxiety, Bipolar disorder, Panic attacks, ADD/ADHD, Post traumatic stress disorder Musculoskeletal: Fibromyalgia, Chronic back pain Derm: None - Past Surgical History Past Surgical History: Yes Ortho: Spine surgery, Other /RESOURCE TEACHER: section, Hysterectomy, Oophrectomy, Other HEENT: Tonsil/Adenoidectomy - Present Medications Home Medications: Ambulatory Orders Medication Instructions Recorded Confirmed lamoTRIgine [LaMICtal] 150 mg PO TID 05/04/20 02/14/22 Cyclobenzaprine [Flexeril] 10 mg PO TID PRN 02/26/21 02/14/22 Estrogens, Conjugated [Premarin] 0.625 mg PO DAILY 02/26/21 02/14/22 Pantoprazole Sodium 40 mg PO BID 02/26/21 02/14/22 Cefdinir 300 mg PO BID #20 cap 02/14/22 Nystatin Cream [Mycostatin Cream] 1 applic TOP BID #30 gm 02/14/22 Oxycodone HCl/Acetaminophen 1 - 2 each PO Q6H PRN #14 tablet 02/14/22 [Percocet 5-325 mg Tablet] Promethazine [Phenergan] 25 mg PO Q6H PRN #10 tab 02/14/22 - Allergies Allergies/Adverse Reactions: Allergies Allergy/AdvReac Type Severity Reaction Status Date / Time sulfamethoxazole Allergy Severe Hives Verified 02/14/22 10:47 [From Bactrim] trimethoprim [From Bactrim] Allergy Severe Hives Verified 02/14/22 10:47 azithromycin [From Zithromax] Allergy Anaphylaxis Verified 02/14/22 10:47 cariprazine [From Vraylar] Allergy Unknown Verified 02/14/22 10:47 ciprofloxacin Allergy Anaphylaxis Verified 02/14/22 10:47 lorazepam AdvReac Headache Verified 02/14/22 10:47 - Social History Does the pt smoke?: No Smoking Status: Never smoker Does the pt drink ETOH?: Yes Does the pt have substance abuse?: No - Immunizations Immunizations are current?: Yes - POLST Patient has POLST: No POLST Status: Full Code PD ED PE NORMAL - Vitals Vital signs reviewed: Yes - General General: Alert and oriented X 3, No acute distress - Cardiac Cardiac: RRR, No murmur - Respiratory Respiratory: No respiratory distress, Clear bilaterally - Abdomen Abdomen: Normal bowel sounds, Soft, Other (Right flank more than right lower quadrant tenderness, no surgical signs) - Derm Derm: Normal color, Warm and dry - Extremities Extremities: No edema, No calf tenderness / cord - Neuro Neuro: Alert and oriented X 3, Normal speech Results - Vitals Vitals: Vital Signs - 24 hr 02/14/22 02/14/22 02/14/22 10:41 11:43 13:57 Temperature 36.0 C L Heart Rate 118 H 110 H 89 Respiratory 20 18 16 Rate Blood Pressure 137/92 H 138/93 H 197/130 H O2 Saturation 97 97 93 Oxygen O2 Source Room air - Labs Labs: Laboratory Tests 02/14/22 02/14/22 02/14/22 10:50 11:20 11:20 WBC 9.4 RBC 5.03 Hgb 13.3 Hct 40.4 MCV 80.3 L MCH 26.4 L MCHC 32.9 RDW 14.6 Plt Count 179 MPV 9.3 Neut # (Auto) 5.4 Lymph # (Auto) 3.1 [place] # (Auto) 0.6 Eos # (Auto) 0.2 Baso # (Auto) 0.0 Absolute Nucleated RBC 0.00 Nucleated RBC % 0.0 Sodium 138 Potassium 4.1 Chloride 99 L Carbon Dioxide 24 Anion Gap 15.0 H BUN 11 Creatinine 0.5 Estimated GFR (MDRD) 137 Glucose 253 H Lactic Acid Calcium 9.8 Total Bilirubin 0.7 AST 35 ALT 37 Alkaline Phosphatase 104 Total Protein 8.4 H Albumin 4.2 Globulin 4.2 Albumin/Globulin Ratio 1.0 Urine Color YELLOW Urine Clarity SL. CLOUDY Urine pH 6.0 Ur Specific [place] 1.025 Urine Protein 100 H Urine Glucose (UA) >=1000 H Urine Ketones NEGATIVE Urine Occult Blood MODERATE H Urine Nitrite POSITIVE H Urine Bilirubin NEGATIVE Urine Urobilinogen 0.2 (NORMAL) Ur Leukocyte Esterase MODERATE H Urine RBC 11-25 H Urine WBC >25 H Ur Epithelial Cells Ur Squamous Epith Cells MOD Squamous H Urine Bacteria Moderate H Ur Microscopic Review INDICATED Urine Culture Comments NOT INDICATED 02/14/22 02/14/22 11:20 13:52 WBC RBC Hgb Hct MCV MCH MCHC RDW Plt Count MPV Neut # (Auto) Lymph # (Auto) [place] # (Auto) Eos # (Auto) Baso # (Auto) Absolute Nucleated RBC Nucleated RBC % Sodium Potassium Chloride Carbon Dioxide Anion Gap BUN Creatinine Estimated GFR (MDRD) Glucose Lactic Acid 2.2 Calcium Total Bilirubin AST ALT Alkaline Phosphatase Total Protein Albumin Globulin Albumin/Globulin Ratio Urine Color YELLOW Urine Clarity SL. CLOUDY Urine pH 6.0 Ur Specific [place] 1.025 Urine Protein 100 H Urine Glucose (UA) >=1000 H Urine Ketones NEGATIVE Urine Occult Blood MODERATE H Urine Nitrite POSITIVE H Urine Bilirubin NEGATIVE Urine Urobilinogen 0.2 (NORMAL) Ur Leukocyte Esterase MODERATE H Urine RBC TNTC H Urine WBC >25 H Ur Epithelial Cells FEW Transitional Ur Squamous Epith Cells MOD Squamous H Urine Bacteria Many H Ur Microscopic Review INDICATED Urine Culture Comments NOT INDICATED PD MEDICAL DECISION MAKING - ED course ED course: 41-year-old woman presents with pelvic pain, urinary frequency and urethral pain associate with a fever last night and right flank oh more than right lower quadrant tenderness without surgical signs. Blood work is looking fairly normal with the exception of elevated blood sugar noting that she does have a history of type 2 diabetes currently diet managed. She was feeling better after pain and nausea medication and on reexamination she was nontender abdominally. Initial urinalysis was contaminated by skin cells and the second sample was obtained by catheterization, still with skin cells but given that it was a cath sample probably a true positive and will treat with ceftriaxone for pyelonephritis here and cefdinir home-going noting that due to medication conflicts she cannot take fluoroquinolones. Given close return precautions with supportive at the bedside. Departure - Departure Disposition: 01 Home, Self Care Clinical Impression: Pyelonephritis Condition: Good Record reviewed to determine appropriate education?: Yes Instructions: ED Kidney Infec Female Prescriptions: Cefdinir 300 mg PO BID #20 cap Nystatin Cream [Mycostatin Cream] 1 applic TOP BID #30 gm Oxycodone HCl/Acetaminophen [Percocet 5-325 mg Tablet] 1 - 2 each PO Q6H PRN #14 tablet PRN Reason: pain Promethazine [Phenergan] 25 mg PO Q6H PRN #10 tab PRN Reason: Nausea / Vomiting Comments: I sent your prescriptions electronically to the [facility] pharmacy at [address] here in [place]. We will culture your urine, the results should be done in 48-72 hours. If an antibiotic change is necessary we will call you. Return if worse in the meantime, plan to followup with your primary doctor on Sunday or Sunday. I am prescribing a short course of narcotic pain medication for you. These are potentially dangerous and addictive medications that should be used carefully. These medications may constipate you. Take an [id number] stool softener (docusate) twice daily with plenty of water while taking these medications. If you go 24 hours without a bowel movement, take [id number] miralax, per package instructions. Do not drink or drive while taking these medications. If you received narcotic or sedating medications while in the emergency department, do not drive for 24 hours. Store this medication in a safe, secure place and out of reach of children. It is a violation of federal law to give or sell this medication to another person or to use in a manner other than prescribed. The ED will not refill narcotic prescriptions, including prescriptions lost or stolen. To dispose of unwanted medications: 1. [facility] at [address] in [place] has a medication drop box. They accept prescription medications (in pill form) Sunday through Sunday 9:00 a.m. to 5:00 p.m. 2. The [facility] accepts prescription medications (in pill form only) for disposal year round. Call for more information. 3. Contact the [facility] for the next [facility] sponsored prescription drug collection event. , [phone], or [phone]; Note that many narcotic pain relievers also contain Tylenol/acetaminophen. Please ensure that your total dose of acetaminophen from all sources does not exceed 3 g (3000 mg) per day.
[2022-02-14 11:45] LABS: ALBUMIN 4.2 g/dL (3.2-5.5); BILIRUBIN,TOTAL 0.7 mg/dL (0.2-1.0); CALCIUM 9.8 mg/dL (8.5-10.3); CREATININE 0.5 mg/dL (0.4-1.0); POTASSIUM 4.1 mmol/L (3.5-5.0); TOTAL PROTEIN 8.4 g/dL (6.7-8.2)
[2022-02-14] MEDS ORDERED: PROMETHAZINE INJ 25 MG in SODIUM CHLORIDE 0.9% 50 ML IV STA (12:14)
[2022-02-14 13:58] VITALS: BP 197/130
[2022-02-14 14:01] LABS: BILIRUBIN,URINE NEGATIVE (NEGATIVE); GLUCOSE, URINE (UA) >=1000 mg/dL (NEGATIVE); KETONES,URINE (UA) NEGATIVE (NEGATIVE); LEUKOCYTE ESTERASE, URINE MODERATE (NEGATIVE); NITRITE,URINE POSITIVE (NEGATIVE); OCCULT BLOOD,URINE MODERATE (NEGATIVE); PROTEIN,URINE 100 mg/dL (NEGATIVE); UROBILINOGEN,URINE 0.2 (NORMAL) E.U./dL (NORMAL)
[2022-02-14 14:03] LABS: CLARITY,URINE SL. CLOUDY (CLEAR)
[2022-02-14 14:18] LABS: BACTERIA,URINE Many /HPF (None Seen); EPITHELIAL CELLS,UR FEW Transitional /HPF (<= Few); RBC,URINE TNTC /HPF (0-5); SQUAMOUS EPITHELIAL CELL,UR MOD Squamous (<= Few); WBC,URINE >25 /HPF (0-5)
[2022-02-14] MEDS ORDERED: cefTRIAXone 1 GM in SODIUM CHLORIDE 0.9% MINIBAG 100 ML IV STA (14:25)
== END 2022-02-14 15:18 | disposition home or self-care (01) ==
LOC: ED 10:31
DX: N12 Tubulo-interstitial nephritis, not specified as acute or chronic (principal); E11.9 Type 2 diabetes mellitus without complications
CPT/HCPCS: 36415; 80053; 81001; 83605; 85025; 87077; 87086; 87181; 96365; 96375; 96376; 99281; 99284; J1170; J7040; 81003

== ENCOUNTER 2022-04-28 11:23 | Outpatient (CLI) | payer OTHER | END 2022-04-28 11:24 | disposition short-term general hospital (02) | LOC: EMS 11:23 | DX: M25.551 Pain in right hip (principal) | CPT/HCPCS: A0425; A0427 ==

== ENCOUNTER 2022-05-19 16:26 | Emergency (ER) | payer OTHER ==
[2022-05-19 17:05] LABS: BASOPHILS % (AUTO) 0.3 %; EOSINOPHILS # (AUTO) 0.1 10^3/uL (0.0-0.7); EOSINOPHILS % (AUTO) 0.8 %; HCT - HEMATOCRIT 44.6 % (37.0-47.0); HGB - HEMOGLOBIN 13.8 g/dL (12.0-16.0); LYMPHOCYTES # (AUTO) 3.5 10^3/uL (1.5-3.5); LYMPHOCYTES % (AUTO) 36.6 %; MEAN CORPUSCULAR HGB CONC 30.9 g/dL (32.0-36.0); MEAN CORPUSCULAR VOLUME 80.7 fL (81.0-99.0); MEAN PLATELET VOLUME 9.1 fL (7.9-10.8); MONOCYTES # (AUTO) 0.4 10^3/uL (0.0-1.0); MONOCYTES % (AUTO) 4.3 %; NEUTROPHILS # (AUTO) 5.4 10^3/uL (1.5-6.6); NEUTROPHILS % (AUTO) 57.3 %; PLT - PLATELET COUNT 232 10^3/uL (130-450); RED BLOOD COUNT 5.53 10^6/uL (4.20-5.40); RED CELL DISTRIBUTION WIDTH 14.6 % (12.0-15.0); WHITE BLOOD COUNT 9.5 x10^3/uL (4.8-10.8)
[2022-05-19 17:10] LABS: BILIRUBIN,URINE NEGATIVE (NEGATIVE); GLUCOSE, URINE (UA) 500 mg/dL (NEGATIVE); KETONES,URINE (UA) 15 mg/dL (NEGATIVE); LEUKOCYTE ESTERASE, URINE NEGATIVE (NEGATIVE); NITRITE,URINE NEGATIVE (NEGATIVE); OCCULT BLOOD,URINE TRACE-INTA (NEGATIVE); PH,URINE 6.5 PH (5.0-7.5); PROTEIN,URINE TRACE mg/dL (NEGATIVE); UROBILINOGEN,URINE 0.2 (NORMAL) E.U./dL (NORMAL)
[2022-05-19] MEDS ORDERED: SODIUM CHLORIDE 0.9% 1,000 ML IV STA (17:12)
[2022-05-19] MEDS ORDERED: HYDROmorphone 1 MG/ML CARPUJECT IVP STA ×2 (17:12→17:50)
[2022-05-19] MEDS ORDERED: KETOROLAC 15 MG/ML VIAL IVP STA (17:12)
--- NOTE | 2022-05-19 17:14 | ED Physician Documentation ---
PD HPI FEMALE - Stated complaint Stated Complaint: LWR BACK PX/BURNING SKIN - Chief complaint Chief Complaint: Abd Pain - History obtained from History obtained from: Patient - Additional information Additional information: 41-year-old woman with recurrent urinary infections. Was on prophylactic Macrobid but her primary stopped that somewhat recently. She went to [facility] for an hip injury on April 27 or . Imaging was negative but subsequently was diagnosed with a UTI. Did not get a prescription for antibiotics per her and went to her physician maybe a week later and got a presc ription for Macrobid which was not too helpful and continues to have UTI symptoms with bilateral left worse than right flank pain. Because of this she feels like her skin is burning all over and she is hypersensitive. She had a fever of 101 this morning at home. 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 : Chronic bladder infection, Kidney stones, Other HEENT: None Psych: Depression, Anxiety, Bipolar disorder, Panic attacks, ADD/ADHD, Post traumatic stress disorder Musculoskeletal: Fibromyalgia, Chronic back pain Derm: None - Past Surgical History Past Surgical History: Yes Ortho: Spine surgery, Other /BAG TURNER: section, Hysterectomy, Oophrectomy, Other HEENT: Tonsil/Adenoidectomy - Present Medications Home Medications: Ambulatory Orders Medication Instructions Recorded Confirmed lamoTRIgine [LaMICtal] 150 mg PO TID 05/04/20 02/14/22 Cyclobenzaprine [Flexeril] 10 mg PO TID PRN 02/26/21 02/14/22 Estrogens, Conjugated [Premarin] 0.625 mg PO DAILY 02/26/21 02/14/22 Pantoprazole Sodium 40 mg PO BID 02/26/21 02/14/22 Cefdinir 300 mg PO BID #20 cap 02/14/22 Nystatin Cream [Mycostatin Cream] 1 applic TOP BID #30 gm 02/14/22 Oxycodone HCl/Acetaminophen 1 - 2 each PO Q6H PRN #14 tablet 02/14/22 [Percocet 5-325 mg Tablet] Promethazine [Phenergan] 25 mg PO Q6H PRN #10 tab 02/14/22 Cefdinir 300 mg PO BID #20 cap 05/19/22 Oxycodone HCl/Acetaminophen 1 each PO Q4H PRN #15 tablet 05/19/22 [Percocet 10-325 mg Tablet] - Allergies Allergies/Adverse Reactions: Allergies Allergy/AdvReac Type Severity Reaction Status Date / Time sulfamethoxazole Allergy Severe Hives Verified 05/19/22 16:40 [From Bactrim] trimethoprim [From Bactrim] Allergy Severe Hives Verified 05/19/22 16:40 azithromycin [From Zithromax] Allergy Anaphylaxis Verified 05/19/22 16:40 cariprazine [From Vraylar] Allergy Unknown Verified 05/19/22 16:40 ciprofloxacin Allergy Anaphylaxis Verified 05/19/22 16:40 lorazepam AdvReac Headache Verified 05/19/22 16:40 - Social History Does the pt smoke?: No Smoking Status: Never smoker Does the pt drink ETOH?: Yes Does the pt have substance abuse?: No - Immunizations Immunizations are current?: Yes - POLST Patient has POLST: No POLST Status: Full Code PD ED PE NORMAL - Vitals Vital signs reviewed: Yes (Modest resting tachycardia) - General General: Alert and oriented X 3, No acute distress - HEENT HEENT: PERRL, EOMI - Neck Neck: Supple, no meningeal sign, No bony TTP - Cardiac Cardiac: No murmur, Other (Modest resting tachycardia) - Respiratory Respiratory: No respiratory distress, Clear bilaterally - Abdomen Abdomen: Normal bowel sounds, Soft, Non tender - Back Back: Other (Left greater than right flank tenderness) - Derm Derm: Normal color, Warm and dry, Other (Mild diffuse erythroderma) - Neuro Neuro: Alert and oriented X 3, Normal speech Results - Vitals Vitals: Vital Signs - 24 hr 05/19/22 05/19/22 16:33 18:54 Temperature 36.8 C Heart Rate 121 H 106 H Respiratory 24 13 Rate Blood Pressure 170/101 H 120/85 H O2 Saturation 97 100 Oxygen O2 Source Room air - Labs Labs: Laboratory Tests 05/19/22 05/19/22 05/19/22 16:59 16:59 16:59 WBC 9.5 RBC 5.53 H Hgb 13.8 Hct 44.6 MCV 80.7 L MCH 25.0 L MCHC 30.9 L RDW 14.6 Plt Count 232 MPV 9.1 Neut # (Auto) 5.4 Lymph # (Auto) 3.5 [place] # (Auto) 0.4 Eos # (Auto) 0.1 Baso # (Auto) 0.0 Absolute Nucleated RBC 0.00 Nucleated RBC % 0.0 Sodium 136 Potassium 3.8 Chloride 102 Carbon Dioxide 21 Anion Gap 13.0 BUN 9 Creatinine 0.6 Estimated GFR (MDRD) 111 Glucose 210 H Lactic Acid 3.8 H* Calcium 9.9 Total Bilirubin 0.9 AST 93 H ALT 62 H Alkaline Phosphatase 105 Total Protein 8.9 H Albumin 4.6 Globulin 4.3 H Albumin/Globulin Ratio 1.1 Lipase 31 Urine Color Urine Clarity Urine pH Ur Specific [place] Urine Protein Urine Glucose (UA) Urine Ketones Urine Occult Blood Urine Nitrite Urine Bilirubin Urine Urobilinogen Ur Leukocyte Esterase Urine RBC Urine WBC Ur Squamous Epith Cells Urine Bacteria Urine Yeast Ur Microscopic Review Urine Culture Comments 05/19/22 05/19/22 17:05 18:27 WBC RBC Hgb Hct MCV MCH MCHC RDW Plt Count MPV Neut # (Auto) Lymph # (Auto) [place] # (Auto) Eos # (Auto) Baso # (Auto) Absolute Nucleated RBC Nucleated RBC % Sodium Potassium Chloride Carbon Dioxide Anion Gap BUN Creatinine Estimated GFR (MDRD) Glucose Lactic Acid 2.2 Calcium Total Bilirubin AST ALT Alkaline Phosphatase Total Protein Albumin Globulin Albumin/Globulin Ratio Lipase Urine Color YELLOW Urine Clarity HAZY Urine pH 6.5 Ur Specific [place] 1.020 Urine Protein TRACE Urine Glucose (UA) 500 H Urine Ketones 15 H Urine Occult Blood TRACE-INTA Urine Nitrite NEGATIVE Urine Bilirubin NEGATIVE Urine Urobilinogen 0.2 (NORMAL) Ur Leukocyte Esterase NEGATIVE Urine RBC 0-5 Urine WBC 0-3 Ur Squamous Epith Cells FEW Squamous Urine Bacteria Moderate H Urine Yeast PRESENT Ur Microscopic Review INDICATED Urine Culture Comments NOT INDICATED PD Medical Decision Making - ED course ED course: 41-year-old woman with what sounds like incompletely treated pyelonephritis with persistent bacteriuria. CBC reviewed and unremarkable. CMP reviewed and notable for modest hyperglycemia and chronic elevation of liver enzymes related to fatty liver. Initial lactate was 3.8, but this was drawn with a tourniquet on and this was repeated and was 2.2. She was administered IV Rocephin here as well as 2 doses of IV Dilaudid with improvement in her symptoms. Departure - Departure Disposition: 01 Home, Self Care Clinical Impression: Pyelonephritis Condition: Good Record reviewed to determine appropriate education?: Yes Instructions: ED Kidney Infec Female Prescriptions: Cefdinir 300 mg PO BID #20 cap Oxycodone HCl/Acetaminophen [Percocet 10-325 mg Tablet] 1 each PO Q4H PRN #15 tablet PRN Reason: Pain Comments: I sent your prescriptions electronically to [facility] in [place]. We will culture your urine, the results should be done in 48-72 hours. If an antibiotic change is necessary we will call you. Return if worse in the meantime, especially if you develop increasing flank pain, fevers, or cannot k eep down the medication. Follow-up with your doctor next week for reevaluation. I am prescribing a short course of narcotic pain medication for you. These are potentially dangerous and addictive medications that should be used carefully. These medications may constipate you. Take an [id number] stool softener (docusate) twice daily with plenty of water while taking these medications. If you go 24 hours without a bowel movement, take [id number] miralax, per package instructions. Do not drink or drive while taking these medications. If you received narcotic or sedating medications while in the emergency department, do not drive for 24 hours. Store this medication in a safe, secure place and out of reach of children. It is a violation of federal law to give or sell this medication to another person or to use in a manner other than prescribed. The ED will not refill narcotic prescriptions, including prescriptions lost or stolen. To dispose of unwanted medications: 1. [facility] at [address] in [place] has a medication drop box. They accept prescription medications (in pill form) Sunday through Sunday 9:00 a.m. to 5:00 p.m. 2. The [facility] accepts prescription medications (in pill form only) for disposal year round. Call for more information. 3. Contact the [facility] for the next [facility] sponsored prescription drug collection event. , [phone], or [phone]; Note that many narcotic pain relievers also contain Tylenol/acetaminophen. Please ensure that your total dose of acetaminophen from all sources does not exceed 3 g (3000 mg) per day. Discharge Date/Time: 05/19/22 19:08
[2022-05-19 17:18] LABS: ALBUMIN 4.6 g/dL (3.2-5.5); ALBUMIN/GLOBULIN RATIO 1.1 (1.0-2.2); BILIRUBIN,TOTAL 0.9 mg/dL (0.2-1.0); CALCIUM 9.9 mg/dL (8.5-10.3); CREATININE 0.6 mg/dL (0.4-1.0); POTASSIUM 3.8 mmol/L (3.5-5.0); TOTAL PROTEIN 8.9 g/dL (6.7-8.2)
--- OUTSIDE RECORDS SUMMARY | 2022-05-19 17:28 | EXTERNAL MEDICAL SUMMARY RPT | Continuity of Care Document ---
:1980 Author Organization [facility] Address [address] [place] [address] Phone Care Team Providers Name Role Phone Cassy Bruce Unavailable Unavailable Allergies and Intolerances date description facility type (no date) Mild [facility] (unknown) (no date) Sulfa (Sulfonamide Antibiotics) [facility] (unknown) (no date) amoxicillin [facility] (unknown) (no date) cephalexin [facility] (unknown) (no date) codeine [facility] (unknown) (no date) levofloxacin [facility] (unknown) Encounters No information. Functional Status No information. Immunizations No information. Medications date description facility 2022-04-28 00:00 Oxycodone-Acetaminophen [facility] 2022-04-28 00:00 Phenazopyridine [facility] 2022-04-28 00:00 Nitrofurantoin Monohyd/M-Cryst [facility] 2022-04-28 00:00 Promethazine [facility] Problems date description facility 2022-04-28 00:00 Acute dehydration [facility] 2022-04-28 00:00 Urinary tract infection [facility] Procedures date description facility 2022-04-28 00:00 [facility]22-[facility]-28 00:00 Unilateral x-ray of hip, two views, wit h x-ray [facility] of pelvis Results/Labs test date author facility value unit interpret ation Result panel 1 (unknown) (no date[facility]) Result panel 2 (unknown) (no date) (unknown) [facility]) Result panel 3 (unknown) (no date) (unknown) [facility]) Result panel 4 (unknown) (no date) (unknown) [facility]) Result panel 5 (unknown) (no date) (unknown[facility]) Result panel 6 (unknown) (no date) (unknown[facility]) Result panel 7 (unknown) (no date) (unknown[facility]) Result panel 8 (unknown) (no date) (unknown[facility]) Result panel 9 (unknown) (no date) (unknown[facility]) Result panel 10 (unknown) (no date) (unknown[facility]) Result panel 11 (unknown) (no date) (unknown[facility]) Result panel 12 (unknown) (no date) (unknown[facility]) Result panel 13 (unknown) (no date) (unknown[facility]) Result panel 14 (unknown) (no date) (unknown[facility]) Result panel 15 (unknown) (no date) (unknown[facility]) Result panel 16 (unknown) (no date) (unknown[facility]) Result panel 17 (unknown) (no date) (unknown[facility]) Result panel 18 (unknown) (no date) (unknown[facility]) Result panel 19 (unknown) (no date) (unknown[facility]) Result panel 20 (unknown) (no date) (unknown[facility]) Result panel 21 (unknown) (no date) (unknown[facility]) Result panel 22 (unknown) (no date) (unknown[facility]) Result panel 23 (unknown) (no date) (unknown[facility]) Result panel 24 (unknown) (no date) (unknown[facility]) Result panel 25 (unknown) (no date) (unknown[facility]) Result panel 26 (unknown) (no date) (unknown[facility]) Result panel 27 (unknown) (no date) (unknown[facility]) Result panel 28 (unknown) (no date) (unknown[facility]) Result panel 29 (unknown) (no date) (unknown[facility]) Result panel 30 (unknown) (no date) (unknown[facility]) Result panel 31 (unknown) (no date) (unknown[facility]) Result panel 32 (unknown) (no date) (unknown[facility]) Result panel 33 (unknown) (no date) (unknown[facility]) Result panel 34 (unknown) (no date) (unknown[facility]) Result panel 35 (unknown) (no date) (unknown[facility]) Result panel 36 (unknown) (no date) (unknown[facility]) Result panel 37 (unknown) (no date) (unknown[facility]) Result panel 38 (unknown) (no date) (unknown[facility]) Result panel 39 (unknown) (no date) (unknown[facility]) Result panel 40 (unknown) (no date) (unknown[facility]) Result panel 41 (unknown) (no date) (unknown[facility]) Result panel 42 (unknown) (no date) (unknown[facility]) Result panel 43 (unknown) (no date) (unknown[facility]) Result panel 44 (unknown) (no date) (unknown[facility]) Result panel 45 (unknown) (no date) (unknown[facility]) Result panel 46 (unknown) (no date) (unknown[facility]) Result panel 47 (unknown) (no date) (unknown[facility]) Result panel 48 (unknown) (no date) (unknown[facility]) Result panel 49 (unknown) (no date) (unknown[facility]) Result panel 50 (unknown) (no date) (unknown[facility]) Result panel 51 (unknown) (no date) (unknown[facility]) Result panel 52 (unknown) (no date) (unknown[facility]) Result panel 53 (unknown) (no date) (unknown[facility]) Result panel 54 (unknown) (no date) (unknown[facility]) Result panel 55 (unknown) (no date) (unknown[facility]) Result panel 56 (unknown) (no date) (unknown[facility]) Result panel 57 (unknown) (no date) (unknown[facility]) Result panel 58 (unknown) (no date) (unknown[facility]) Result panel 59 (unknown) (no date) (unknown[facility]) Result panel 60 (unknown) (no date) (unknown[facility]) Result panel 61 (unknown) (no date) (unknown[facility]) Result panel 62 (unknown) (no date) (unknown[facility]) Result panel 63 (unknown) (no date) (unknown[facility]) Result panel 64 (unknown) (no date) (unknown[facility]) Result panel 65 (unknown) (no date) (unknown) [facility]) Result panel 66 (unknown) (no date) (unknown) [facility]) Result panel 67 (unknown) (no date) (unknown) [facility]) Result panel 68 (unknown) (no date) (unknown) [facility]) Result panel 69 (unknown) (no date) (unknown) [facility]) Result panel 70 (unknown) (no date) (unknown) [facility]) Result panel 71 (unknown) (no date) (unknown) [facility]) Result panel 72 (unknown) (no date) (unknown) [facility]) Result panel 73 (unknown) (no date) (unknown[facility]) Result panel 74 (unknown) (no date) (unknown[facility]) Result panel 75 (unknown) (no date) (unknown) [facility]) Result panel 76 (unknown) (no date) (unknown) [facility]) Result panel 77 (unknown) (no date) (unknown[facility]) Result panel 78 (unknown) (no date) (unknown) [facility]) Result panel 79 (unknown) (no date) (unknown) [facility]) Result panel 80 (unknown) (no date) (unknown) [facility]) Result panel 81 (unknown) (no date) (unknown[facility]) Result panel 82 (unknown) (no (unknown) (unknown) (no value) (units (unk nown) date) unknown) (unknown) (no (unknown) (unknown) [id number] (units (unkn own) date) unknown) (unknown) (no (unknown) (unknown) 04/28/22 (units (unkno wn) date) unknown) (unknown) (no (unknown) (unknown) [address] (units (unkn own) date) Street unknown) (unknown) (no (unknown) (unknown) Accession (units (unkn own) date) Number: unknown) [id number] (unknown) (no (unknown) (unknown) Accession (units (unkn own) date) Number: unknown) [id number] (unknown) (no (unknown) (unknown) Age/Sex: 41 / F (units (unknown) date) Date of Service: unknown) (unknown) (no (unknown) (unknown) [place] (units ( unknown) date) [id number] unknown) (unknown) (no (unknown) (unknown) Approved by: (units (u nknown) date) doc Bansal M.D. on 04/28/2022 at 13:11 (unknown) (no (unknown) (unknown) Approved by: (units (u nknown) date) Grant Edwards unknown) Paulo on 04/28/2022 at 13:06 (unknown) (no (unknown) (unknown) Bones and chest (units (unknown) date) wall: No unknown) fractures or dislocations. No suspicious bony (unknown) (no (unknown) (unknown) Bones: No (units (unkn own) date) fractures or unknown) dislocations. Pelvic ring appears intact. No (unknown) (no (unknown) (unknown) COMPARISON: (units (un known) date) None. unknown) (unknown) (no (unknown) (unknown) : 1980 (units (unknown) date) Acct:[id number] unknown) (unknown) (no (unknown) (unknown) Dictated by: (units (u nknown) date) Dolly Larsen, unknown) Paulo on 04/28/2022 at 13:11 (unknown) (no (unknown) (unknown) Dictated by: (units (u nknown) date) georgette Vitale) Paulo on 04/28/2022 at 13:04 (unknown) (no (unknown) (unknown) FINDINGS: (units (unkn own) date) unknown) (unknown) (no (unknown) (unknown) IMPRESSION: No (units (unknown) date) trauma found, no unknown) pneumothorax identified. (unknown) (no (unknown) (unknown) IMPRESSION: No (units (unknown) date) visualized acute unknown) fracture or dislocation. However, if clinical (unknown) (no (unknown) (unknown) INDICATIONS: (units (u nknown) date) Fall unknown) (unknown) (no (unknown) (unknown) [facility] (units (unknown) date) unknown) (unknown) (no (unknown) (unknown) Loc: ED (units (unkno wn) date) unknown) (unknown) (no (unknown) (unknown) Lungs and (units (unkn own) date) pleura: No unknown) pleural effusions or pneumothorax. Lungs appear clear. (unknown) (no (unknown) (unknown) Mediastinum: (units (u nknown) date) Mediastinal unknown) contours appear normal. Heart size is normal. (unknown) (no (unknown) (unknown) Ordering (units (unkno wn) date) Provider: unknown) Low Kilpatrick D.O. (unknown) (no (unknown) (unknown) Overlying soft (units (unknown) date) tissues appear unknown) unremarkable. (unknown) (no (unknown) (unknown) PROCEDURE: XR (units ( unknown) date) HIP W PEL IF unknown) DONE RT 2V (unknown) (no (unknown) (unknown) PROCEDURE: XR (units ( unknown) date) RIBS RT MIN 3V W unknown) CXR 1V (unknown) (no (unknown) (unknown) Patient: (units (unkno wn) date) Leatha Cartwright unknown) MR#: [id number] (unknown) (no (unknown) (unknown) Procedure: XR (units ( unknown) date) hip w pel if unknown) done RT 2V (unknown) (no (unknown) (unknown) Procedure: XR (units ( unknown) date) ribs RT min 3V w unknown) CXR1V (unknown) (no (unknown) (unknown) Signed (units (unkno wn) date) unknown) (unknown) (no (unknown) (unknown) Soft tissues: (units ( unknown) date) The visualized unknown) bowel gas pattern is normal. No suspicious soft (unknown) (no (unknown) (unknown) Surgical (units (unkno wn) date) changes and unknown) devices: None. (unknown) (no (unknown) (unknown) TECHNIQUE: AP (units ( unknown) date) pelvis with unknown) lateral view(s) of the right hip(s). (unknown) (no (unknown) (unknown) TECHNIQUE: Two (units (unknown) date) views of the unknown) right ribs were acquired, along with a single view (unknown) (no (unknown) (unknown) XRay Report (units (un known) date) unknown) (unknown) (no (unknown) (unknown) and/or pain (units (un known) date) persist, short unknown) interval imaging followup in 7-10 days is (unknown) (no (unknown) (unknown) calcifications. (units (unknown) date) unknown) (unknown) (no (unknown) (unknown) chest. (units (unkno wn) date) unknown) (unknown) (no (unknown) (unknown) concern (units (unkno wn) date) unknown) (unknown) (no (unknown) (unknown) lesions. (units (unkno wn) date) unknown) (unknown) (no (unknown) (unknown) occult injury (units ( unknown) date) cannot be unknown) definitively excluded. (unknown) (no (unknown) (unknown) recommended, as (units (unknown) date) unknown) (unknown) (no (unknown) (unknown) suspicious bony (units (unknown) date) unknown) (unknown) (no (unknown) (unknown) tissue (units (unkno wn) date) unknown) Result panel 83 (unknown) (no (unknown) (unknown) (no value) (units (unk nown) date) unknown) (unknown) (no (unknown) (unknown) (Dilaudid) (units (unk nown) date) unknown) (unknown) (no (unknown) (unknown) [id number] (units (unkno wn) date) unknown) (unknown) (no (unknown) (unknown) 04/28/22 12:29 (units (unknown) date) unknown) (unknown) (no (unknown) (unknown) 04/28/22 12:30 (units (unknown) date) unknown) (unknown) (no (unknown) (unknown) 04/28/22 13:18 (units (unknown) date) unknown) (unknown) (no (unknown) (unknown) 04/28/22 (units (unkno wn) date) unknown) (unknown) (no (unknown) (unknown) 1 tab PO Q6H PRN (units (unknown) date) (Reason: pain) unknown) Qty: 10 0RF (unknown) (no (unknown) (unknown) 10 mg PO Q6HP (units ( unknown) date) PRNQty: 10 0RF unknown) (unknown) (no (unknown) (unknown) 12:20 04/28/22 (units (unknown) date) unknown) (unknown) (no (unknown) (unknown) 12:25 04/28/22 (units (unknown) date) unknown) (unknown) (no (unknown) (unknown) 12:30 04/28/22 (units (unknown) date) unknown) (unknown) (no (unknown) (unknown) 12:30 (units (unkno wn) date) unknown) (unknown) (no (unknown) (unknown) 12:43 (units (unkno wn) date) unknown) (unknown) (no (unknown) (unknown) 2 mg PO Q6HP (units (u nknown) date) PRNQty: 8 0RF unknown) (unknown) (no (unknown) (unknown) 20 mg PO QAM Qty: (units (unknown) date) 3 0RF unknown) (unknown) (no (unknown) (unknown) 25 mg PO Q6HP (units ( unknown) date) PRNQty: 10 0RF unknown) (unknown) (no (unknown) (unknown) 98%. Patient (units (u nknown) date) received pain unknown) medication in route and caused her O2 sats drop (unknown) (no (unknown) (unknown) ? (units (unkno wn) date) unknown) (unknown) (no (unknown) (unknown) ANTIBIOTICS)] (units ( unknown) date) unknown) (unknown) (no (unknown) (unknown) Age/Sex: 41 / F (units (unknown) date) unknown) (unknown) (no (unknown) (unknown) Allergies (units (unkn own) date) unknown) (unknown) (no (unknown) (unknown) Allergy/AdvReac (units (unknown) date) Type Severity unknown) Reaction Status Date / Time (unknown) (no (unknown) (unknown) Antibiotics) (units (u nknown) date) ITCHING unknown) (unknown) (no (unknown) (unknown) Approved by: (units (u nknown) date) Dolly Larsen M.D. unknown) on 04/28/2022 at 13:11 ? (unknown) (no (unknown) (unknown) Approved by: (units (u nknown) date) doc Vitale M.D. on 04/28/2022 at 13:06 ? (unknown) (no (unknown) (unknown) Bipolar 1 (units (unkn own) date) disorder unknown) (unknown) (no (unknown) (unknown) Blood Pressure (units (unknown) date) 133/92 H 04/28/22 unknown) 12:20 (unknown) (no (unknown) (unknown) Blood Pressure (units (unknown) date) 133/92 H 138/88 unknown) (unknown) (no (unknown) (unknown) Blood Pressure (units (unknown) date) unknown) (unknown) (no (unknown) (unknown) Bones and chest (units (unknown) date) wall:? No unknown) fractures or dislocations.? No suspicious bony (unknown) (no (unknown) (unknown) Bones:? No (units (unk nown) date) fractures or unknown) dislocations.? Pelvic ring appears intact.? No (unknown) (no (unknown) (unknown) CBC Auto Diff (units ( unknown) date) [Complete Blood unknown) Count AUTO DIFF] Stat (unknown) (no (unknown) (unknown) CMP (units (unkno wn) date) [Comprehensive unknown) Metabolic Panel] Stat (unknown) (no (unknown) (unknown) COMPARISON:? (units (u nknown) date) None. unknown) (unknown) (no (unknown) (unknown) CRP [C-Reactive (units (unknown) date) Protein Quant] unknown) Stat (unknown) (no (unknown) (unknown) Cardiovascular (units (unknown) date) tachycardic rate unknown) and regular rhythm, no peripheral edema, warm (unknown) (no (unknown) (unknown) Chest x-ray: (units (u nknown) date) unknown) (unknown) (no (unknown) (unknown) Chief Complaint: (units (unknown) date) Fall unknown) (unknown) (no (unknown) (unknown) Chief Complaint: (units (unknown) date) unknown) (unknown) (no (unknown) (unknown) Clinical decision (units (unknown) date) rules or scores unknown) evaluated: [place] and [place] head CT rule (unknown) (no (unknown) (unknown) Course of care (units (unknown) date) and unknown) re-evaluations: (unknown) (no (unknown) (unknown) Course (units (unkno wn) date) unknown) (unknown) (no (unknown) (unknown) Covid-19 + FLU (units (unknown) date) A/B + RSV - PCR unknown) Stat (unknown) (no (unknown) (unknown) Currently she is (units (unknown) date) wearing 2 L nasal unknown) cannula but her pulse oximeter is reading (unknown) (no (unknown) (unknown) DIARRHEA, (units (unkn own) date) unknown) (unknown) (no (unknown) (unknown) : 1980 (units (unknown) date) Acct:[id number] unknown) (unknown) (no (unknown) (unknown) Date of Service: (units (unknown) date) 04/28/22 unknown) (unknown) (no (unknown) (unknown) Departure (units (unkn own) date) unknown) (unknown) (no (unknown) (unknown) Depression (units (unk nown) date) unknown) (unknown) (no (unknown) (unknown) Dictated by: (units (u nknown) date) Dolly Larsen M.D. unknown) on 04/28/2022 at 13:11 ? ? (unknown) (no (unknown) (unknown) Dictated by: (units (u nknown) date) doc Vitale M.D. on 04/28/2022 at 13:04 ? ? 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 (units (unk nown) date) unknown) (unknown) (no (unknown) (unknown) GI: abdomen soft, (units (unknown) date) nontender to unknown) palpation, nondistended, without masses, rebound (unknown) (no (unknown) (unknown) General (units (unkno wn) date) unknown) (unknown) (no (unknown) (unknown) General: (units (unkno wn) date) cooperative, unknown) comfortable, in no acute distress, well groomed (unknown) (no (unknown) (unknown) HEADACHE (units (unkno wn) date) unknown) (unknown) (no (unknown) (unknown) HEENT: (units (unkno wn) date) symmetrical facial unknown) expressions, moist mucous membranes (unknown) (no (unknown) (unknown) HPI - Fall (units (unk nown) date) unknown) (unknown) (no (unknown) (unknown) HPI Narrative: (units (unknown) date) unknown) (unknown) (no (unknown) (unknown) History of (units (unk nown) date) Present Illness unknown) (unknown) (no (unknown) (unknown) I have reviewed (units (unknown) date) the patient's unknown) vital signs and nursing notes as well as prior (unknown) (no (unknown) (unknown) IMPRESSION:? No (units (unknown) date) trauma found, no unknown) pneumothorax identified. (unknown) (no (unknown) (unknown) IMPRESSION:? No (units (unknown) date) visualized acute unknown) fracture or dislocation. However, if clinical (unknown) (no (unknown) (unknown) INDICATIONS:? (units ( unknown) date) Fall unknown) (unknown) (no (unknown) (unknown) INFECTION (units (unkn own) date) unknown) (unknown) (no (unknown) (unknown) ITCHING (units (unkno wn) date) unknown) (unknown) (no (unknown) (unknown) Imaging Data (units (u nknown) date) unknown) (unknown) (no (unknown) (unknown) Independently (units ( unknown) date) reviewed imaging unknown) including: Right hip and right ribs x-ray (unknown) (no (unknown) (unknown) Initial Vital (units ( unknown) date) Signs unknown) (unknown) (no (unknown) (unknown) Initial Vital (units ( unknown) date) Signs: unknown) (unknown) (no (unknown) (unknown) [facility] (units (unknown) date) [address] unknown) [place] [address] (unknown) (no (unknown) (unknown) Ketorolac (units (unkn own) date) Tromethamine unknown) (Ketorolac 30 Mg/Ml Vial) 15 mg IV NOW ONE (unknown) (no (unknown) (unknown) Lab test results (units (unknown) date) independently unknown) reviewed, pertinent findings: (unknown) (no (unknown) (unknown) Lungs and (units (unkn own) date) pleura:? No unknown) pleural effusions or pneumothorax.? Lungs appear clear.? (unknown) (no (unknown) (unknown) MDM - Fall (units (unk nown) date) unknown) (unknown) (no (unknown) (unknown) MDM Narrative (units ( unknown) date) unknown) (unknown) (no (unknown) (unknown) MIPS: This (units (unk nown) date) encounter doesn't unknown) have any diagnosis' associated with MIPS criteria. (unknown) (no (unknown) (unknown) MSK: moves all (units (unknown) date) extremities, unknown) neurovascularly intact, no weakness, normal tone, (unknown) (no (unknown) (unknown) Mediastinum:? (units ( unknown) date) Mediastinal unknown) contours appear normal.? Heart size is normal.? (unknown) (no (unknown) (unknown) Medical History (units (unknown) date) (Updated 10/03/18 unknown) @ 00:00 by ) (unknown) (no (unknown) (unknown) Medical decision (units (unknown) date) making narrative: unknown) (unknown) (no (unknown) (unknown) Medication (units (unk nown) date) Instructions unknown) Recorded (unknown) (no (unknown) (unknown) Met with the (units (u nknown) date) patient, ordered unknown) her pain medication per her request, she states (unknown) (no (unknown) (unknown) Mode of arrival: (units (unknown) date) EMS unknown) (unknown) (no (unknown) (unknown) Narrative (units (unkn own) date) unknown) (unknown) (no (unknown) (unknown) Neuro: normal (units ( unknown) date) speech and unknown) cognition, A+O x3, ambulatory, clear speech (unknown) (no (unknown) (unknown) Night terrors, (units (unknown) date) adult unknown) (unknown) (no (unknown) (unknown) No Action (units (unkn own) date) unknown) (unknown) (no (unknown) (unknown) Ordered UA, (units (un known) date) patient states unknown) that she thinks she can void. (unknown) (no (unknown) (unknown) Ordered: (units (unkno wn) date) unknown) (unknown) (no (unknown) (unknown) Orders (units (unkno wn) date) unknown) (unknown) (no (unknown) (unknown) Overlying soft (units (unknown) date) tissues appear unknown) unremarkable.? (unknown) (no (unknown) (unknown) Oxygen Delivery (units (unknown) date) Method 04/28/22 unknown) 12:20 (unknown) (no (unknown) (unknown) Oxygen Delivery (units (unknown) date) Method Room Air unknown) Nasal Cannula (unknown) (no (unknown) (unknown) Oxygen Delivery (units (unknown) date) Method Room Air unknown) (unknown) (no (unknown) (unknown) Oxygen Flow Rate (units (unknown) date) 2 unknown) (unknown) (no (unknown) (unknown) Oxygen Flow Rate (units (unknown) date) unknown) (unknown) (no (unknown) (unknown) PROCEDURE:? XR (units (unknown) date) HIP W PEL IF DONE unknown) RT 2V (unknown) (no (unknown) (unknown) PROCEDURE:? XR (units (unknown) date) RIBS RT MIN 3V W unknown) CXR 1V (unknown) (no (unknown) (unknown) Patient History (units (unknown) date) unknown) (unknown) (no (unknown) (unknown) Patient is (units (unk nown) date) appropriate for unknown) outpatient management. (unknown) (no (unknown) (unknown) Patient's (units (unkn own) date) symptoms improved unknown) over duration of stay with above-stated therapies. (unknown) (no (unknown) (unknown) Patient: (units (unkno wn) date) Leatha Cartwright M unknown) MR#: [id number] (unknown) (no (unknown) (unknown) Prescriptions: (units (unknown) date) unknown) (unknown) (no (unknown) (unknown) Previous Rx's (units ( unknown) date) unknown) (unknown) (no (unknown) (unknown) Procalcitonin (units ( unknown) date) Stat unknown) (unknown) (no (unknown) (unknown) Psych: mental (units ( unknown) date) status is grossly unknown) normal, congruent mood, normal affect, pleasant (unknown) (no (unknown) (unknown) Pulse Oximetry (units (unknown) date) 100 04/28/22 12:20 unknown) (unknown) (no (unknown) (unknown) Pulse Oximetry (units (unknown) date) 100 96 unknown) (unknown) (no (unknown) (unknown) Pulse Oximetry 96 (units (unknown) date) 93 unknown) (unknown) (no (unknown) (unknown) Pulse Rate 111 H (units (unknown) date) unknown) (unknown) (no (unknown) (unknown) Pulse Rate 114 H (units (unknown) date) 04/28/22 12:20 unknown) (unknown) (no (unknown) (unknown) Pulse Rate 114 H (units (unknown) date) 112 H unknown) (unknown) (no (unknown) (unknown) Questions are (units ( unknown) date) addressed and unknown) there is agreement with the plan and for follow-up. (unknown) (no (unknown) (unknown) ROS Unobtainable: (units (unknown) date) All systems unknown) reviewed + are unremarkable except as noted in HPI (unknown) (no (unknown) (unknown) Radiologist's (units ( unknown) date) Impression: unknown) (unknown) (no (unknown) (unknown) Related Data (units (u nknown) date) unknown) (unknown) (no (unknown) (unknown) Respiratory Rate (units (unknown) date) 16 04/28/22 12:20 unknown) (unknown) (no (unknown) (unknown) Respiratory Rate (units (unknown) date) 16 unknown) (unknown) (no (unknown) (unknown) Respiratory Rate (units (unknown) date) unknown) (unknown) (no (unknown) (unknown) Respiratory: (units (u nknown) date) normal effort, unknown) able to speak in complete sentences, without (unknown) (no (unknown) (unknown) Review of Systems (units (unknown) date) unknown) (unknown) (no (unknown) (unknown) Reviewed vitals (units (unknown) date) signs and nursing unknown) notes. (unknown) (no (unknown) (unknown) Shared decision (units (unknown) date) making: unknown) (unknown) (no (unknown) (unknown) She states that (units (unknown) date) she is allergic to unknown) multiple antibiotics, she takes Dilaudid for (unknown) (no (unknown) (unknown) Signed By: (units (unk nown) date) unknown) (unknown) (no (unknown) (unknown) Skin: brisk (units (un known) date) capillary refill, unknown) without pallor or erythema (unknown) (no (unknown) (unknown) Smoking Status: (units (unknown) date) Former smoker unknown) (unknown) (no (unknown) (unknown) Social History (units (unknown) date) (Reviewed 09/18/18 unknown) @ 10:12 by Roxanne Thomas DO) (unknown) (no (unknown) (unknown) Social (units (unkno wn) date) considerations unknown) that may affect disposition: (unknown) (no (unknown) (unknown) Soft tissues:? (units (unknown) date) The visualized unknown) bowel gas pattern is normal.? No suspicious soft (unknown) (no (unknown) (unknown) Source: patient (units (unknown) date) and EMS unknown) (unknown) (no (unknown) (unknown) Stated Complaint: (units (unknown) date) R Hip snap crackle unknown) pop (unknown) (no (unknown) (unknown) Stop: 04/28/22 (units (unknown) date) 13:19 unknown) (unknown) (no (unknown) (unknown) Substance Use (units ( unknown) date) Type: does not use unknown) (unknown) (no (unknown) (unknown) Sulfa (units (unkno wn) date) (Sulfonamide unknown) Allergy Severe NAUSEA, Verified 04/28/22 12:26 (unknown) (no (unknown) (unknown) Surgical changes (units (unknown) date) and devices:? unknown) None.? (unknown) (no (unknown) (unknown) TECHNIQUE:? AP (units (unknown) date) pelvis with unknown) lateral view(s) of the right hip(s).? (unknown) (no (unknown) (unknown) TECHNIQUE:? Two (units (unknown) date) views of the right unknown) ribs were acquired, along with a single view (unknown) (no (unknown) (unknown) TING (units (unkno wn) date) unknown) (unknown) (no (unknown) (unknown) Temperature 97.9 (units (unknown) date) F 04/28/22 12:20 unknown) (unknown) (no (unknown) (unknown) Temperature 97.9 (units (unknown) date) F unknown) (unknown) (no (unknown) (unknown) Temperature (units (un known) date) unknown) (unknown) (no (unknown) (unknown) This is a (units (unkn own) date) 41-year-old female unknown) presents to the emergency department via EMS after (unknown) (no (unknown) (unknown) Time Seen by (units (u nknown) date) Provider: 04/28/22 unknown) 12:55 (unknown) (no (unknown) (unknown) Urine Microscopic (units (unknown) date) Stat unknown) (unknown) (no (unknown) (unknown) Vital Signs - 8 (units (unknown) date) hr unknown) (unknown) (no (unknown) (unknown) Vital Signs (units (un known) date) unknown) (unknown) (no (unknown) (unknown) Vital signs: (units (u nknown) date) unknown) (unknown) (no (unknown) (unknown) XR hip w pel if (units (unknown) date) done RT 2V Stat unknown) (unknown) (no (unknown) (unknown) XR ribs RT min 3V (units (unknown) date) w CXR1V Stat unknown) (unknown) (no (unknown) (unknown) Zofran. She is (units (unknown) date) slurring her words unknown) mildly but is sitting upright, without (unknown) (no (unknown) (unknown) [SULFA (units (unkno wn) date) (SULFONAMIDE unknown) (unknown) (no (unknown) (unknown) a mechanical fall (units (unknown) date) where she was unknown) walking outside onto her right side and now (unknown) (no (unknown) (unknown) alcohol intake (units (unknown) date) frequency: unknown) holidays/special occasions only (unknown) (no (unknown) (unknown) alert. (units (unkno wn) date) unknown) (unknown) (no (unknown) (unknown) amoxicillin (units (un known) date) [AMOXICILLIN] unknown) AdvReac Intermediate YEAST Verified 04/28/22 12:26 (unknown) (no (unknown) (unknown) and below (units (unkn own) date) unknown) (unknown) (no (unknown) (unknown) and cooperative (units (unknown) date) unknown) (unknown) (no (unknown) (unknown) and/or pain (units (un known) date) persist, short unknown) interval imaging followup in 7-10 days is (unknown) (no (unknown) (unknown) calcifications.? (units (unknown) date) unknown) (unknown) (no (unknown) (unknown) cephalexin (units (unk nown) date) [CEPHALEXIN] unknown) Allergy Unknown NAUSEA/VOMI Verified 04/28/22 12:26 (unknown) (no (unknown) (unknown) chest.? (units (unkno wn) date) unknown) (unknown) (no (unknown) (unknown) codeine [CODEINE] (units (unknown) date) Allergy Mild unknown) NAUSEA, Verified 04/28/22 12:26 (unknown) (no (unknown) (unknown) complains of (units (u nknown) date) right-sided hip unknown) pain. She states that she is had a history hip (unknown) (no (unknown) (unknown) concern (units (unkno wn) date) unknown) (unknown) (no (unknown) (unknown) diaphoresis, (units (u nknown) date) shortness of unknown) breath, difficulty breathing, chest pain, weakness, (unknown) (no (unknown) (unknown) ecchymosis or (units ( unknown) date) obvious deformity, unknown) no pain to right hip with axial load from foot (unknown) (no (unknown) (unknown) emesis, does not (units (unknown) date) feel neck pain, unknown) denies LOC. (unknown) (no (unknown) (unknown) extremities (units (un known) date) unknown) (unknown) (no (unknown) (unknown) help of 2 people (units (unknown) date) but states she was unknown) unable to bear weight on this side. Patient (unknown) (no (unknown) (unknown) hip. (units (unkno wn) date) unknown) (unknown) (no (unknown) (unknown) history of low (units (unknown) date) back pain, has unknown) documented history kidney stone and hematuria in (unknown) (no (unknown) (unknown) hydrocodone 5 (units ( unknown) date) mg-acetaminophen unknown) 325 1 tab PO Q6H PRN pain #10 tabs 09/18/18 (unknown) (no (unknown) (unknown) hydrocodone-aceta (units (unknown) date) minophen [[place]] unknown) 5-325 mg tablet (unknown) (no (unknown) (unknown) hydromorphone 2 (units (unknown) date) mg tablet 2 mg PO unknown) Q6HP PRN #8 tabs 01/11/16 (unknown) (no (unknown) (unknown) hydromorphone (units ( unknown) date) [Dilaudid] 2 MG unknown) tablet (unknown) (no (unknown) (unknown) hypoxia, wearing (units (unknown) date) 2 L nasal cannula unknown) as she became sedated in the ambulance EN (unknown) (no (unknown) (unknown) incontinence, (units ( unknown) date) abdominal pain, unknown) flank pain or other pain. She denies any (unknown) (no (unknown) (unknown) is sitting up on (units (unknown) date) the stretcher, unknown) appears comfortable, is talkative, received 200 (unknown) (no (unknown) (unknown) ketorolac 10 MG (units (unknown) date) tablet unknown) (unknown) (no (unknown) (unknown) ketorolac 10 mg (units (unknown) date) tablet 10 mg PO unknown) Q6HP PRN #10 tabs 01/11/16 (unknown) (no (unknown) (unknown) lesions.? (units (unkn own) date) unknown) (unknown) (no (unknown) (unknown) levofloxacin (units (u nknown) date) [LEVOFLOXACIN] unknown) Allergy Unknown N/V, Verified 04/28/22 12:26 (unknown) (no (unknown) (unknown) lower extremities (units (unknown) date) in the past. She unknown) has history of bladder stimulator, denies (unknown) (no (unknown) (unknown) mcgs of fentanyl (units (unknown) date) EN route. Patient unknown) denies any in her head, did not have any (unknown) (no (unknown) (unknown) mg tablet ([place]) (units (unknown) date) unknown) (unknown) (no (unknown) (unknown) motion of her (units ( unknown) date) right knee and unknown) right foot with good perfusion, palpable pedal (unknown) (no (unknown) (unknown) nontender over (units (unknown) date) spine, patient unknown) complains of pain to the right iliac crest with (unknown) (no (unknown) (unknown) occult injury (units ( unknown) date) cannot be unknown) definitively excluded. (unknown) (no (unknown) (unknown) pain at home, (units ( unknown) date) also uses unknown) Phenergan and states that Zofran is not adequate. She (unknown) (no (unknown) (unknown) pain with (units (unkn own) date) ambulation for the unknown) last 2-3 months. She denies any surgeries over (unknown) (no (unknown) (unknown) palpation, full (units (unknown) date) range of motion of unknown) right hip is without weakness. Full range of (unknown) (no (unknown) (unknown) palpation, (units (unk nown) date) unknown) (unknown) (no (unknown) (unknown) prednisone 20 MG (units (unknown) date) tablet unknown) (unknown) (no (unknown) (unknown) prednisone 20 mg (units (unknown) date) tablet 20 mg PO unknown) QAM #3 tabs 01/11/16 (unknown) (no (unknown) (unknown) promethazine 25 (units (unknown) date) MG tablet unknown) (unknown) (no (unknown) (unknown) promethazine 25 (units (unknown) date) mg tablet 25 mg PO unknown) Q6HP PRN #10 tabs 05/12/16 (unknown) (no (unknown) (unknown) promethazine 25 (units (unknown) date) mg tablet 25 mg PO unknown) Q6HP PRN #10 tabs 01/11/16 (unknown) (no (unknown) (unknown) pulses. Brisk cap (units (unknown) date) refill in her unknown) toes. She denies any sensation deficit. No (unknown) (no (unknown) (unknown) recommended, as (units (unknown) date) unknown) (unknown) (no (unknown) (unknown) records if (units (unk nown) date) available. unknown) (unknown) (no (unknown) (unknown) route after (units (un known) date) receiving unknown) fentanyl. No concerning findings on exam of her right (unknown) (no (unknown) (unknown) sensation (units (unkn own) date) changes, states unknown) that after the fall she was able to get up with the (unknown) (no (unknown) (unknown) she is nauseated (units (unknown) date) but has not had unknown) vomiting and requests something stronger than (unknown) (no (unknown) (unknown) states that she (units (unknown) date) is had a low-grade unknown) fever for the last 2 days but denies (unknown) (no (unknown) (unknown) suspicious bony (units (unknown) date) unknown) (unknown) (no (unknown) (unknown) tenderness or (units ( unknown) date) exquisite unknown) tenderness with exam. Right CVA tenderness with (unknown) (no (unknown) (unknown) the past and (units (u nknown) date) endorses that she unknown) feels like she has a urinary tract infection. (unknown) (no (unknown) (unknown) tissue (units (unkno wn) date) unknown) (unknown) (no (unknown) (unknown) wheezing, (units (unkn own) date) stridor, or unknown) abnormal breath sounds. No retractions or tachypnea. (unknown) (no (unknown) (unknown) while she was (units (u nknown) date) lying down, she unknown) was started on this but now is much more awake and (unknown) (no (unknown) (unknown) without (units (unkno wn) date) indication for CT unknown) imaging of C-spine or head (unknown) (no (unknown) (unknown) without (units (unkno wn) date) pneumothorax, unknown) acute fracture or other acute abnormality. Result panel 84 (unknown) (no date) (unknown) (unknown) 0 /ul (unkn own) (unknown) (no date) (unknown) (unknown) 0.4 % (unkn own) (unknown) (no date) (unknown) (unknown) 13.2 g/dl (unkn own) (unknown) (no date) (unknown) (unknown) 15.2 % (unkn own) (unknown) (no date) (unknown) (unknown) 2.2 % (unkn own) (unknown) (no date) (unknown) (unknown) 200 /ul (unkn own) (unknown) (no date) (unknown) (unknown) 207 x10 3/ul (unkn own) (unknown) (no date) (unknown) (unknown) 25.5 pg (unkn own) (unknown) (no date) (unknown) (unknown) 2600 /ul (unkn own) (unknown) (no date) (unknown) (unknown) 300 /ul (unkn own) (unknown) (no date) (unknown) (unknown) 32.8 % (unkn own) (unknown) (no date) (unknown) (unknown) 3600 /ul (unkn own) (unknown) (no date) (unknown) (unknown) 39.2 % (unkn own) (unknown) (no date) (unknown) (unknown) 4.4 % (unkn own) (unknown) (no date) (unknown) (unknown) 40.1 % (unkn own) (unknown) (no date) (unknown) (unknown) 5.16 x10 6/ul (unkn own) (unknown) (no date) (unknown) (unknown) 53.8 % (unkn own) (unknown) (no date) (unknown) (unknown) 6.7 x10 3/ul (unkn own) (unknown) (no date) (unknown) (unknown) 77.6 fl (unkn own) Result panel 85 (unknown) (no (unknown) (unknown) (no value) (units (unk nown) date) unknown) (unknown) (no (unknown) (unknown) (Dilaudid) (units (unk nown) date) unknown) (unknown) (no (unknown) (unknown) [id number] (units (unkno wn) date) unknown) (unknown) (no (unknown) (unknown) 04/28/22 12:29 (units (unknown) date) unknown) (unknown) (no (unknown) (unknown) 04/28/22 12:30 (units (unknown) date) unknown) (unknown) (no (unknown) (unknown) 04/28/22 13:18 (units (unknown) date) unknown) (unknown) (no (unknown) (unknown) 04/28/22 13:37 (units (unknown) date) unknown) (unknown) (no (unknown) (unknown) 04/28/22 13:41 (units (unknown) date) unknown) (unknown) (no (unknown) (unknown) 04/28/22 14:05 (units (unknown) date) unknown) (unknown) (no (unknown) (unknown) 04/28/22 (units (unkno wn) date) unknown) (unknown) (no (unknown) (unknown) 1 tab PO Q6H PRN (units (unknown) date) (Reason: pain) unknown) Qty: 10 0RF (unknown) (no (unknown) (unknown) 10 mg PO Q6HP (units ( unknown) date) PRNQty: 10 0RF unknown) (unknown) (no (unknown) (unknown) 12:20 04/28/22 (units (unknown) date) unknown) (unknown) (no (unknown) (unknown) 12:25 04/28/22 (units (unknown) date) unknown) (unknown) (no (unknown) (unknown) 12:30 04/28/22 (units (unknown) date) unknown) (unknown) (no (unknown) (unknown) 12:30 (units (unkno wn) date) unknown) (unknown) (no (unknown) (unknown) 12:43 04/28/22 (units (unknown) date) unknown) (unknown) (no (unknown) (unknown) 13:00 (units (unkno wn) date) unknown) (unknown) (no (unknown) (unknown) 13:30 04/28/22 (units (unknown) date) unknown) (unknown) (no (unknown) (unknown) 13:45 04/28/22 (units (unknown) date) unknown) (unknown) (no (unknown) (unknown) 13:45 (units (unkno wn) date) unknown) (unknown) (no (unknown) (unknown) 1415 went to (units (un known) date) recheck patient's unknown) pain, and other her IV has been removed due to it (unknown) (no (unknown) (unknown) 2 mg PO Q6HP (units (u nknown) date) PRNQty: 8 0RF unknown) (unknown) (no (unknown) (unknown) 20 mg PO QAM Qty: (units (unknown) date) 3 0RF unknown) (unknown) (no (unknown) (unknown) 25 mg PO Q6HP (units ( unknown) date) PRNQty: 10 0RF unknown) (unknown) (no (unknown) (unknown) 98%. Patient (units (u nknown) date) received pain unknown) medication in route and caused her O2 sats drop (unknown) (no (unknown) (unknown) ? (units (unkno wn) date) unknown) (unknown) (no (unknown) (unknown) ANTIBIOTICS)] (units ( unknown) date) unknown) (unknown) (no (unknown) (unknown) Age/Sex: 41 / F (units (unknown) date) unknown) (unknown) (no (unknown) (unknown) Allergies (units (unkn own) date) unknown) (unknown) (no (unknown) (unknown) Allergy/AdvReac (units (unknown) date) Type Severity unknown) Reaction Status Date / Time (unknown) (no (unknown) (unknown) Antibiotics) (units (u nknown) date) ITCHING unknown) (unknown) (no (unknown) (unknown) Approved by: (units (u nknown) date) Dolly Larsen M.D. unknown) on 04/28/2022 at 13:11 ? (unknown) (no (unknown) (unknown) Approved by: (units (u nknown) date) doc Vitale M.D. on 04/28/2022 at 13:06 ? (unknown) (no (unknown) (unknown) Bipolar 1 (units (unkn own) date) disorder unknown) (unknown) (no (unknown) (unknown) Blood Pressure (units (unknown) date) 133/92 H 04/28/22 unknown) 12:20 (unknown) (no (unknown) (unknown) Blood Pressure (units (unknown) date) 133/92 H 138/88 unknown) (unknown) (no (unknown) (unknown) Blood Pressure (units (unknown) date) 152/81 H unknown) (unknown) (no (unknown) (unknown) Blood Pressure (units (unknown) date) unknown) (unknown) (no (unknown) (unknown) Bones and chest (units (unknown) date) wall:? No unknown) fractures or dislocations.? No suspicious bony (unknown) (no (unknown) (unknown) Bones:? No (units (unk nown) date) fractures or unknown) dislocations.? Pelvic ring appears intact.? No (unknown) (no (unknown) (unknown) CBC Auto Diff (units ( unknown) date) [Complete Blood unknown) Count AUTO DIFF] Stat (unknown) (no (unknown) (unknown) CMP (units (unkno wn) date) [Comprehensive unknown) Metabolic Panel] Stat (unknown) (no (unknown) (unknown) COMPARISON:? (units (u nknown) date) None. unknown) (unknown) (no (unknown) (unknown) CRP [C-Reactive (units (unknown) date) Protein Quant] unknown) Stat (unknown) (no (unknown) (unknown) Cardiovascular (units (unknown) date) tachycardic rate unknown) and regular rhythm, no peripheral edema, warm (unknown) (no (unknown) (unknown) Chest x-ray: (units (u nknown) date) unknown) (unknown) (no (unknown) (unknown) Chief Complaint: (units (unknown) date) Fall unknown) (unknown) (no (unknown) (unknown) Chief Complaint: (units (unknown) date) unknown) (unknown) (no (unknown) (unknown) Clinical decision (units (unknown) date) rules or scores unknown) evaluated: [place] and [place] head CT rule (unknown) (no (unknown) (unknown) Course of care (units (unknown) date) and unknown) re-evaluations: (unknown) (no (unknown) (unknown) Course (units (unkno wn) date) unknown) (unknown) (no (unknown) (unknown) Covid-19 + FLU (units (unknown) date) A/B + RSV - PCR unknown) Stat (unknown) (no (unknown) (unknown) Currently she is (units (unknown) date) wearing 2 L nasal unknown) cannula but her pulse oximeter is reading (unknown) (no (unknown) (unknown) DIARRHEA, (units (unkn own) date) unknown) (unknown) (no (unknown) (unknown) : 1980 (units (unknown) date) Acct:[id number] unknown) (unknown) (no (unknown) (unknown) Date of Service: (units (unknown) date) 04/28/22 unknown) (unknown) (no (unknown) (unknown) Departure (units (unkn own) date) unknown) (unknown) (no (unknown) (unknown) Depression (units (unk nown) date) unknown) (unknown) (no (unknown) (unknown) Dictated by: (units (u nknown) date) Dolly Larsen M.D. unknown) on 04/28/2022 at 13:11 ? ? (unknown) (no (unknown) (unknown) Dictated by: (units (u nknown) date) doc Vitale M.D. on 04/28/2022 at 13:04 ? ? (unknown) (no (unknown) (unknown) Differential (units (u nknown) date) diagnoses include unknown) but are not limited to: (unknown) (no (unknown) (unknown) Diphenhydramine (units (unknown) date) HCl unknown) (Diphenhydramine 50 Mg/Ml Vial) 25 mg IV NOW ONE (unknown) (no (unknown) (unknown) Discharge Plan (units (unknown) date) unknown) (unknown) (no (unknown) (unknown) Discontinued (units (u nknown) date) Medications unknown) (unknown) (no (unknown) (unknown) ED Orders (units (unkn own) date) unknown) (unknown) (no (unknown) (unknown) EKG-12 Lead Stat (units (unknown) date) unknown) (unknown) (no (unknown) (unknown) ER Physician: (units ( unknown) date) Cassy Chan unknown) 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) (no (unknown) (unknown) Emergency Report (units (unknown) date) unknown) (unknown) (no (unknown) (unknown) Exam Narrative: (units (unknown) date) unknown) (unknown) (no (unknown) (unknown) Exam (units (unkno wn) date) unknown) (unknown) (no (unknown) (unknown) Extremity x-ray (units (unknown) date) #2: unknown) (unknown) (no (unknown) (unknown) FINDINGS:? (units (unk nown) date) unknown) (unknown) (no (unknown) (unknown) GI: abdomen soft, (units (unknown) date) nontender to unknown) palpation, nondistended, without masses, rebound (unknown) (no (unknown) (unknown) General (units (unkno wn) date) unknown) (unknown) (no (unknown) (unknown) General: (units (o wn) date) cooperative, unknown) comfortable, in no acute distress, well groomed (unknown) (no (unknown) (unknown) HEADACHE (units (unkno wn) date) unknown) (unknown) (no (unknown) (unknown) HEENT: (units (o wn) date) symmetrical facial unknown) expressions, moist mucous membranes (unknown) (no (unknown) (unknown) HPI - Fall (units (unk nown) date) unknown) (unknown) (no (unknown) (unknown) HPI Narrative: (units (unknown) date) unknown) (unknown) (no (unknown) (unknown) History of (units (unk nown) date) Present Illness unknown) (unknown) (no (unknown) (unknown) Hydromorphone HCl (units (unknown) date) (Hydromorphone 0.5 unknown) Mg Inj) 0.5 mg IV NOW ONE (unknown) (no (unknown) (unknown) Hydromorphone HCl (units (unknown) date) (Hydromorphone 2 unknown) Mg Tablet) 2 mg PO NOW ONE (unknown) (no (unknown) (unknown) I evaluated the (units (unknown) date) patient and found unknown) patient to still have rectal tone. (unknown) (no (unknown) (unknown) I have reviewed (units (unknown) date) the patient's unknown) vital signs and nursing notes as well as prior (unknown) (no (unknown) (unknown) IMPRESSION:? No (units (unknown) date) trauma found, no unknown) pneumothorax identified. (unknown) (no (unknown) (unknown) IMPRESSION:? No (units (unknown) date) visualized acute unknown) fracture or dislocation. However, if clinical (unknown) (no (unknown) (unknown) INDICATIONS:? (units ( unknown) date) Fall unknown) (unknown) (no (unknown) (unknown) INFECTION (units (unkn own) date) unknown) (unknown) (no (unknown) (unknown) ITCHING (units (unkno wn) date) unknown) (unknown) (no (unknown) (unknown) Imaging Data (units (u nknown) date) unknown) (unknown) (no (unknown) (unknown) Independently (units ( unknown) date) reviewed imaging unknown) including: Right hip and right ribs x-ray (unknown) (no (unknown) (unknown) Initial Vital (units ( unknown) date) Signs unknown) (unknown) (no (unknown) (unknown) Initial Vital (units ( unknown) date) Signs: unknown) (unknown) (no (unknown) (unknown) [facility] (units (unknown) date) [address] [place] [address] unknown) [place] [address] (unknown) (no (unknown) (unknown) Ketorolac (units (unkn own) date) Tromethamine unknown) (Ketorolac 30 Mg/Ml Vial) 15 mg IV NOW ONE (unknown) (no (unknown) (unknown) Ketorolac (units (unkn own) date) Tromethamine unknown) (Ketorolac 30 Mg/Ml Vial) 30 mg IM NOW ONE (unknown) (no (unknown) (unknown) Lab Data (units (unkno wn) date) unknown) (unknown) (no (unknown) (unknown) Lab test results (units (unknown) date) independently unknown) reviewed, pertinent findings: (unknown) (no (unknown) (unknown) Lungs and (units (unkn own) date) pleura:? No unknown) pleural effusions or pneumothorax.? Lungs appear clear.? (unknown) (no (unknown) (unknown) MDM - Fall (units (unk nown) date) unknown) (unknown) (no (unknown) (unknown) MDM Narrative (units ( unknown) date) unknown) (unknown) (no (unknown) (unknown) MIPS: This (units (unk nown) date) encounter doesn't unknown) have any diagnosis' associated with MIPS criteria. (unknown) (no (unknown) (unknown) MSK: moves all (units (unknown) date) extremities, unknown) neurovascularly intact, no weakness, normal tone, (unknown) (no (unknown) (unknown) Mediastinum:? (units ( unknown) date) Mediastinal unknown) contours appear normal.? Heart size is normal.? (unknown) (no (unknown) (unknown) Medical History (units (unknown) date) (Updated 10/03/18 unknown) @ 00:00 by ) (unknown) (no (unknown) (unknown) Medical decision (units (unknown) date) making narrative: unknown) (unknown) (no (unknown) (unknown) Medication (units (unk nown) date) Instructions unknown) Recorded (unknown) (no (unknown) (unknown) Met with the (units (u nknown) date) patient, ordered unknown) her pain medication per her request, she states (unknown) (no (unknown) (unknown) Methocarbamol (units ( unknown) date) (Methocarbamol 500 unknown) Mg Tablet) 750 mg PO NOW ONE (unknown) (no (unknown) (unknown) Metoclopramide (units (unknown) date) HCl unknown) (Metoclopramide 10 Mg/2 Ml Inj) 10 mg IV NOW ONE (unknown) (no (unknown) (unknown) Mode of arrival: (units (unknown) date) EMS unknown) (unknown) (no (unknown) (unknown) Narrative (units (unkn own) date) unknown) (unknown) (no (unknown) (unknown) Neuro: normal (units ( unknown) date) speech and unknown) cognition, A+O x3, ambulatory, clear speech (unknown) (no (unknown) (unknown) Night terrors, (units (unknown) date) adult unknown) (unknown) (no (unknown) (unknown) No Action (units (unkn own) date) unknown) (unknown) (no (unknown) (unknown) Ordered UA, (units (un known) date) patient states unknown) that she thinks she can void. (unknown) (no (unknown) (unknown) Ordered: (units (unkno wn) date) unknown) (unknown) (no (unknown) (unknown) Orders (units (unkno wn) date) unknown) (unknown) (no (unknown) (unknown) Overlying soft (units (unknown) date) tissues appear unknown) unremarkable.? (unknown) (no (unknown) (unknown) Oxygen Delivery (units (unknown) date) Method 04/28/22 unknown) 12:20 (unknown) (no (unknown) (unknown) Oxygen Delivery (units (unknown) date) Method Room Air unknown) Nasal Cannula (unknown) (no (unknown) (unknown) Oxygen Delivery (units (unknown) date) Method Room Air unknown) (unknown) (no (unknown) (unknown) Oxygen Delivery (units (unknown) date) Method unknown) (unknown) (no (unknown) (unknown) Oxygen Flow Rate (units (unknown) date) 2 unknown) (unknown) (no (unknown) (unknown) Oxygen Flow Rate (units (unknown) date) unknown) (unknown) (no (unknown) (unknown) PROCEDURE:? XR (units (unknown) date) HIP W PEL IF DONE unknown) RT 2V (unknown) (no (unknown) (unknown) PROCEDURE:? XR (units (unknown) date) RIBS RT MIN 3V W unknown) CXR 1V (unknown) (no (unknown) (unknown) Patient History (units (unknown) date) unknown) (unknown) (no (unknown) (unknown) Patient is (units (unk nown) date) appropriate for unknown) outpatient management. (unknown) (no (unknown) (unknown) Patient's (units (unkn own) date) symptoms improved unknown) over duration of stay with above-stated therapies. (unknown) (no (unknown) (unknown) Patient: (units (unkno wn) date) Leatha Cartwright unknown) MR#: [id number] (unknown) (no (unknown) (unknown) Prescriptions: (units (unknown) date) unknown) (unknown) (no (unknown) (unknown) Previous Rx's (units ( unknown) date) unknown) (unknown) (no (unknown) (unknown) Procalcitonin (units ( unknown) date) Stat unknown) (unknown) (no (unknown) (unknown) Promethazine HCl (units (unknown) date) (Promethazine 25 unknown) Mg Tablet) 12.5 mg PO NOW ONE (unknown) (no (unknown) (unknown) Psych: mental (units ( unknown) date) status is grossly unknown) normal, congruent mood, normal affect, pleasant (unknown) (no (unknown) (unknown) Pulse Oximetry (units (unknown) date) 100 04/28/22 12:20 unknown) (unknown) (no (unknown) (unknown) Pulse Oximetry (units (unknown) date) 100 96 unknown) (unknown) (no (unknown) (unknown) Pulse Oximetry 94 (units (unknown) date) 96 unknown) (unknown) (no (unknown) (unknown) Pulse Oximetry 96 (units (unknown) date) 93 93 unknown) (unknown) (no (unknown) (unknown) Pulse Rate 111 H (units (unknown) date) 115 H unknown) (unknown) (no (unknown) (unknown) Pulse Rate 114 H (units (unknown) date) 04/28/22 12:20 unknown) (unknown) (no (unknown) (unknown) Pulse Rate 114 H (units (unknown) date) 112 H unknown) (unknown) (no (unknown) (unknown) Pulse Rate 118 H (units (unknown) date) 122 H unknown) (unknown) (no (unknown) (unknown) Questions are (units ( unknown) date) addressed and unknown) there is agreement with the plan and for follow-up. (unknown) (no (unknown) (unknown) ROS Unobtainable: (units (unknown) date) All systems unknown) reviewed + are unremarkable except as noted in HPI (unknown) (no (unknown) (unknown) Radiologist's (units ( unknown) date) Impression: unknown) (unknown) (no (unknown) (unknown) Related Data (units (u nknown) date) unknown) (unknown) (no (unknown) (unknown) Respiratory Rate (units (unknown) date) 16 04/28/22 12:20 unknown) (unknown) (no (unknown) (unknown) Respiratory Rate (units (unknown) date) 16 unknown) (unknown) (no (unknown) (unknown) Respiratory Rate (units (unknown) date) unknown) (unknown) (no (unknown) (unknown) Respiratory: (units (u nknown) date) normal effort, unknown) able to speak in complete sentences, without (unknown) (no (unknown) (unknown) Review of Systems (units (unknown) date) unknown) (unknown) (no (unknown) (unknown) Reviewed vitals (units (unknown) date) signs and nursing unknown) notes. (unknown) (no (unknown) (unknown) Shared decision (units (unknown) date) making: unknown) (unknown) (no (unknown) (unknown) She states that (units (unknown) date) she is allergic to unknown) multiple antibiotics, she takes Dilaudid for (unknown) (no (unknown) (unknown) Signed By: (units (unk nown) date) unknown) (unknown) (no (unknown) (unknown) Skin: brisk (units (un known) date) capillary refill, unknown) without pallor or erythema (unknown) (no (unknown) (unknown) Smoking Status: (units (unknown) date) Former smoker unknown) (unknown) (no (unknown) (unknown) Social History (units (unknown) date) (Reviewed 09/18/18 unknown) @ 10:12 by Roxanne Thomas DO) (unknown) (no (unknown) (unknown) Social (units (unkno wn) date) considerations unknown) that may affect disposition: (unknown) (no (unknown) (unknown) Sodium Chloride (units (unknown) date) (Normal Saline unknown) 0.9%) 1,000 mls @ 1,000 mls/hr IV BOLUS ONE (unknown) (no (unknown) (unknown) Soft tissues:? (units (unknown) date) The visualized unknown) bowel gas pattern is normal.? No suspicious soft (unknown) (no (unknown) (unknown) Source: patient (units (unknown) date) and EMS unknown) (unknown) (no (unknown) (unknown) Stated Complaint: (units (unknown) date) R Hip snap crackle unknown) pop (unknown) (no (unknown) (unknown) Stop: 04/28/22 (units (unknown) date) 13:19 unknown) (unknown) (no (unknown) (unknown) Stop: 04/28/22 (units (unknown) date) 13:22 unknown) (unknown) (no (unknown) (unknown) Stop: 04/28/22 (units (unknown) date) 14:13 unknown) (unknown) (no (unknown) (unknown) Stop: 04/28/22 (units (unknown) date) 14:20 unknown) (unknown) (no (unknown) (unknown) Substance Use (units ( unknown) date) Type: does not use unknown) (unknown) (no (unknown) (unknown) Sulfa (units (unkno wn) date) (Sulfonamide unknown) Allergy Severe NAUSEA, Verified 04/28/22 12:26 (unknown) (no (unknown) (unknown) Surgical changes (units (unknown) date) and devices:? unknown) None.? (unknown) (no (unknown) (unknown) TECHNIQUE:? AP (units (unknown) date) pelvis with unknown) lateral view(s) of the right hip(s).? (unknown) (no (unknown) (unknown) TECHNIQUE:? Two (units (unknown) date) views of the right unknown) ribs were acquired, along with a single view (unknown) (no (unknown) (unknown) TING (units (unkno wn) date) unknown) (unknown) (no (unknown) (unknown) Temperature 97.9 (units (unknown) date) F 04/28/22 12:20 unknown) (unknown) (no (unknown) (unknown) Temperature 97.9 (units (unknown) date) F unknown) (unknown) (no (unknown) (unknown) Temperature (units (un known) date) unknown) (unknown) (no (unknown) (unknown) This is a (units (unkn own) date) 41-year-old female unknown) presents to the emergency department via EMS after (unknown) (no (unknown) (unknown) Time Seen by (units (u nknown) date) Provider: 04/28/22 unknown) 12:55 (unknown) (no (unknown) (unknown) Urine Microscopic (units (unknown) date) Stat unknown) (unknown) (no (unknown) (unknown) Vital Signs - 8 (units (unknown) date) hr unknown) (unknown) (no (unknown) (unknown) Vital Signs (units (un known) date) unknown) (unknown) (no (unknown) (unknown) Vital signs: (units (u nknown) date) unknown) (unknown) (no (unknown) (unknown) XR hip w pel if (units (unknown) date) done RT 2V Stat unknown) (unknown) (no (unknown) (unknown) XR ribs RT min 3V (units (unknown) date) w CXR1V Stat unknown) (unknown) (no (unknown) (unknown) Zofran. She is (units (unknown) date) slurring her words unknown) mildly but is sitting upright, without (unknown) (no (unknown) (unknown) [Embedded Image (units (unknown) date) Not Available] unknown) (unknown) (no (unknown) (unknown) [SULFA (units (unkno wn) date) (SULFONAMIDE unknown) (unknown) (no (unknown) (unknown) a mechanical fall (units (unknown) date) where she was unknown) walking outside onto her right side and now (unknown) (no (unknown) (unknown) alcohol intake (units (unknown) date) frequency: unknown) holidays/special occasions only (unknown) (no (unknown) (unknown) alert. (units (unkno wn) date) unknown) (unknown) (no (unknown) (unknown) amoxicillin (units (un known) date) [AMOXICILLIN] unknown) AdvReac Intermediate YEAST Verified 04/28/22 12:26 (unknown) (no (unknown) (unknown) and below (units (unkn own) date) unknown) (unknown) (no (unknown) (unknown) and cooperative (units (unknown) date) unknown) (unknown) (no (unknown) (unknown) and/or pain (units (un known) date) persist, short unknown) interval imaging followup in 7-10 days is (unknown) (no (unknown) (unknown) calcifications.? (units (unknown) date) unknown) (unknown) (no (unknown) (unknown) cephalexin (units (unk nown) date) [CEPHALEXIN] unknown) Allergy Unknown NAUSEA/VOMI Verified 04/28/22 12:26 (unknown) (no (unknown) (unknown) chest.? (units (unkno wn) date) unknown) (unknown) (no (unknown) (unknown) codeine [CODEINE] (units (unknown) date) Allergy Mild unknown) NAUSEA, Verified 04/28/22 12:26 (unknown) (no (unknown) (unknown) complains of (units (u nknown) date) right-sided hip unknown) pain. She states that she is had a history hip (unknown) (no (unknown) (unknown) concern (units (unkno wn) date) unknown) (unknown) (no (unknown) (unknown) diaphoresis, (units (u nknown) date) shortness of unknown) breath, difficulty breathing, chest pain, weakness, (unknown) (no (unknown) (unknown) ecchymosis or (units ( unknown) date) obvious deformity, unknown) no pain to right hip with axial load from foot (unknown) (no (unknown) (unknown) emesis, does not (units (unknown) date) feel neck pain, unknown) denies LOC. (unknown) (no (unknown) (unknown) extremities (units (un known) date) unknown) (unknown) (no (unknown) (unknown) help of 2 people (units (unknown) date) but states she was unknown) unable to bear weight on this side. Patient (unknown) (no (unknown) (unknown) hip. (units (unkno wn) date) unknown) (unknown) (no (unknown) (unknown) history of low (units (unknown) date) back pain, has unknown) documented history kidney stone and hematuria in (unknown) (no (unknown) (unknown) hydrocodone 5 (units ( unknown) date) mg-acetaminophen unknown) 325 1 tab PO Q6H PRN pain #10 tabs 09/18/18 (unknown) (no (unknown) (unknown) hydrocodone-aceta (units (unknown) date) minophen [[place]] unknown) 5-325 mg tablet (unknown) (no (unknown) (unknown) hydromorphone 2 (units (unknown) date) mg tablet 2 mg PO unknown) Q6HP PRN #8 tabs 01/11/16 (unknown) (no (unknown) (unknown) hydromorphone (units ( unknown) date) [Dilaudid] 2 MG unknown) tablet (unknown) (no (unknown) (unknown) hyperventilating, (units (unknown) date) her heart rate unknown) goes up, she complains never having (unknown) (no (unknown) (unknown) hypoxia, wearing (units (unknown) date) 2 L nasal cannula unknown) as she became sedated in the ambulance EN (unknown) (no (unknown) (unknown) incontinence (units (u nknown) date) before. She says unknown) that she did not feel it coming on. She states (unknown) (no (unknown) (unknown) incontinence, (units ( unknown) date) abdominal pain, unknown) flank pain or other pain. She denies any (unknown) (no (unknown) (unknown) is sitting up on (units (unknown) date) the stretcher, unknown) appears comfortable, is talkative, received 200 (unknown) (no (unknown) (unknown) ketorolac 10 MG (units (unknown) date) tablet unknown) (unknown) (no (unknown) (unknown) ketorolac 10 mg (units (unknown) date) tablet 10 mg PO unknown) Q6HP PRN #10 tabs 01/11/16 (unknown) (no (unknown) (unknown) lesions.? (units (unkn own) date) unknown) (unknown) (no (unknown) (unknown) levofloxacin (units (u nknown) date) [LEVOFLOXACIN] unknown) Allergy Unknown N/V, Verified 04/28/22 12:26 (unknown) (no (unknown) (unknown) lower extremities (units (unknown) date) in the past. She unknown) has history of bladder stimulator, denies (unknown) (no (unknown) (unknown) mcgs of fentanyl (units (unknown) date) EN route. Patient unknown) denies any in her head, did not have any (unknown) (no (unknown) (unknown) mg tablet ([place]) (units (unknown) date) unknown) (unknown) (no (unknown) (unknown) motion of her (units ( unknown) date) right knee and unknown) right foot with good perfusion, palpable pedal (unknown) (no (unknown) (unknown) nontender over (units (unknown) date) spine, patient unknown) complains of pain to the right iliac crest with (unknown) (no (unknown) (unknown) not working. (units (u nknown) date) Patient tells me unknown) that she was incontinent. She starts (unknown) (no (unknown) (unknown) occult injury (units ( unknown) date) cannot be unknown) definitively excluded. (unknown) (no (unknown) (unknown) pain at home, (units ( unknown) date) also uses unknown) Phenergan and states that Zofran is not adequate. She (unknown) (no (unknown) (unknown) pain with (units (unkn own) date) ambulation for the unknown) last 2-3 months. She denies any surgeries over (unknown) (no (unknown) (unknown) palpation, full (units (unknown) date) range of motion of unknown) right hip is without weakness. Full range of (unknown) (no (unknown) (unknown) palpation, (units (unk nown) date) unknown) (unknown) (no (unknown) (unknown) prednisone 20 MG (units (unknown) date) tablet unknown) (unknown) (no (unknown) (unknown) prednisone 20 mg (units (unknown) date) tablet 20 mg PO unknown) QAM #3 tabs 01/11/16 (unknown) (no (unknown) (unknown) promethazine 25 (units (unknown) date) MG tablet unknown) (unknown) (no (unknown) (unknown) promethazine 25 (units (unknown) date) mg tablet 25 mg PO unknown) Q6HP PRN #10 tabs 05/12/16 (unknown) (no (unknown) (unknown) promethazine 25 (units (unknown) date) mg tablet 25 mg PO unknown) Q6HP PRN #10 tabs 01/11/16 (unknown) (no (unknown) (unknown) pulses. Brisk cap (units (unknown) date) refill in her unknown) toes. She denies any sensation deficit. No (unknown) (no (unknown) (unknown) recommended, as (units (unknown) date) unknown) (unknown) (no (unknown) (unknown) records if (units (unk nown) date) available. unknown) (unknown) (no (unknown) (unknown) route after (units (un known) date) receiving unknown) fentanyl. No concerning findings on exam of her right (unknown) (no (unknown) (unknown) sensation (units (unkn own) date) changes, states unknown) that after the fall she was able to get up with the (unknown) (no (unknown) (unknown) she is nauseated (units (unknown) date) but has not had unknown) vomiting and requests something stronger than (unknown) (no (unknown) (unknown) states that she (units (unknown) date) is had a low-grade unknown) fever for the last 2 days but denies (unknown) (no (unknown) (unknown) suspicious bony (units (unknown) date) unknown) (unknown) (no (unknown) (unknown) tenderness or (units ( unknown) date) exquisite unknown) tenderness with exam. Right CVA tenderness with (unknown) (no (unknown) (unknown) that she still (units (unknown) date) needs to void, the unknown) nurse was called. (unknown) (no (unknown) (unknown) the past and (units (u nknown) date) endorses that she unknown) feels like she has a urinary tract infection. (unknown) (no (unknown) (unknown) tissue (units (unkno wn) date) unknown) (unknown) (no (unknown) (unknown) wheezing, (units (unkn own) date) stridor, or unknown) abnormal breath sounds. No retractions or tachypnea. (unknown) (no (unknown) (unknown) while she was (units (u nknown) date) lying down, she unknown) was started on this but now is much more awake and (unknown) (no (unknown) (unknown) without (units (unkno wn) date) indication for CT unknown) imaging of C-spine or head (unknown) (no (unknown) (unknown) without (units (unkno wn) date) pneumothorax, unknown) acute fracture or other acute abnormality. Result panel 86 (unknown) (no date) (unknown) (unknown) > 60 ml/min (unkn own) (unknown) (no date) (unknown) (unknown) > 60 ml/min (unkn own) (unknown) (no date) (unknown) (unknown) 0.33 mg/dl (unkn own) (unknown) (no date) (unknown) (unknown) 0.6 mg/dl (unkn own) (unknown) (no date) (unknown) (unknown) 1.2 (units unknown) (unknown) (unknown) (no date) (unknown) (unknown) 1.6 mg/dl (unkn own) (unknown) (no date) (unknown) (unknown) 101 mmol/l (unkn own) (unknown) (no date) (unknown) (unknown) 129 iu/l (unkn own) (unknown) (no date) (unknown) (unknown) 139 mmol/l (unkn own) (unknown) (no date) (unknown) (unknown) 143 u/l (unkn own) (unknown) (no date) (unknown) (unknown) 170 mg/dl (unkn own) (unknown) (no date) (unknown) (unknown) 170 mg/dl (unkn own) (unknown) (no date) (unknown) (unknown) 24 mmol/l (unkn own) (unknown) (no date) (unknown) (unknown) 24.2 (units unknown) (unknown) (unknown) (no date) (unknown) (unknown) 3.9 g/dl (unkn own) (unknown) (no date) (unknown) (unknown) 3.9 mmol/l (unkn own) (unknown) (no date) (unknown) (unknown) 4.6 g/dl (unkn own) (unknown) (no date) (unknown) (unknown) 69 iu/l (unkn own) (unknown) (no date) (unknown) (unknown) 8 mg/dl (unkn own) (unknown) (no date) (unknown) (unknown) 8.5 g/dl (unkn own) (unknown) (no date) (unknown) (unknown) 9.1 mg/dl (unkn own) Result panel 87 (unknown) (no date) (unknown) (unknown) > 60 ml/min (unkn own) (unknown) (no date) (unknown) (unknown) > 60 ml/min (unkn own) (unknown) (no date) (unknown) (unknown) 0.12 ng/ml (unkn own) (unknown) (no date) (unknown) (unknown) 0.12 ng/ml (unkn own) (unknown) (no date) (unknown) (unknown) 0.33 mg/dl (unkn own) (unknown) (no date) (unknown) (unknown) 0.6 mg/dl (unkn own) (unknown) (no date) (unknown) (unknown) 1.2 (units unknown) (unknown) (unknown) (no date) (unknown) (unknown) 1.6 mg/dl (unkn own) (unknown) (no date) (unknown) (unknown) 101 mmol/l (unkn own) (unknown) (no date) (unknown) (unknown) 129 iu/l (unkn own) (unknown) (no date) (unknown) (unknown) 139 mmol/l (unkn own) (unknown) (no date) (unknown) (unknown) 143 u/l (unkn own) (unknown) (no date) (unknown) (unknown) 170 mg/dl (unkn own) (unknown) (no date) (unknown) (unknown) 170 mg/dl (unkn own) (unknown) (no date) (unknown) (unknown) 24 mmol/l (unkn own) (unknown) (no date) (unknown) (unknown) 24.2 (units unknown) (unknown) (unknown) (no date) (unknown) (unknown) 3.9 g/dl (unkn own) (unknown) (no date) (unknown) (unknown) 3.9 mmol/l (unkn own) (unknown) (no date) (unknown) (unknown) 4.6 g/dl (unkn own) (unknown) (no date) (unknown) (unknown) 69 iu/l (unkn own) (unknown) (no date) (unknown) (unknown) 8 mg/dl (unkn own) (unknown) (no date) (unknown) (unknown) 8.5 g/dl (unkn own) (unknown) (no date) (unknown) (unknown) 9.1 mg/dl (unkn own) Result panel 88 (unknown) (no date) (unknown) (unknown) Flu A (units (unkn own) NEGATIVE unknown) (unknown) (no date) (unknown) (unknown) Flu B (units (unkn own) NEGATIVE unknown) (unknown) (no date) (unknown) (unknown) Negative (units (unkn own) unknown) (unknown) (no date) (unknown) (unknown) Negative (units (unkn own) unknown) Result panel 89 (unknown) (no date) (unknown) (unknown) 0-1/HPF (units (unkn own) unknown) (unknown) (no date) (unknown) (unknown) 1-5 /HPF (units (unkn own) unknown) (unknown) (no date) (unknown) (unknown) Cult Not (units (unkn own) Indicated unknown) (unknown) (no date) (unknown) (unknown) Many (>30) (units (un known) unknown) (unknown) (no date) (unknown) (unknown) None Seen (units (unk nown) unknown) (unknown) (no date) (unknown) (unknown) None Seen (units (unk nown) unknown) Result panel 90 (unknown) (no (unknown) (unknown) (no value) (units (unk nown) date) unknown) (unknown) (no (unknown) (unknown) (Dilaudid) (units (unk nown) date) unknown) (unknown) (no (unknown) (unknown) [id number] (units (unkno wn) date) unknown) (unknown) (no (unknown) (unknown) 04/28/22 04/28/22 (units (unknown) date) 04/28/22 unknown) Range/Units (unknown) (no (unknown) (unknown) 04/28/22 12:29 (units (unknown) date) unknown) (unknown) (no (unknown) (unknown) 04/28/22 12:30 (units (unknown) date) unknown) (unknown) (no (unknown) (unknown) 04/28/22 13:37 (units (unknown) date) unknown) (unknown) (no (unknown) (unknown) 04/28/22 13:41 (units (unknown) date) unknown) (unknown) (no (unknown) (unknown) 04/28/22 14:05 (units (unknown) date) unknown) (unknown) (no (unknown) (unknown) 04/28/22 15:19 (units (unknown) date) unknown) (unknown) (no (unknown) (unknown) 04/28/22 (units (unkno wn) date) unknown) (unknown) (no (unknown) (unknown) 1 tab PO Q6H PRN (units (unknown) date) (Reason: pain) unknown) Qty: 10 0RF (unknown) (no (unknown) (unknown) 10 mg PO Q6HP (units ( unknown) date) PRNQty: 10 0RF unknown) (unknown) (no (unknown) (unknown) 105, she received (units (unknown) date) her ketorolac at unknown) 16:00 and states that she is already starting (unknown) (no (unknown) (unknown) 129 and ALT of 69 (units (unknown) date) but no tenderness unknown) over her right upper quadrant to palpation. (unknown) (no (unknown) (unknown) 12:20 02/03/23 (units (unknown) date) unknown) (unknown) (no (unknown) (unknown) 12:25 04/28/22 (units (unknown) date) unknown) (unknown) (no (unknown) (unknown) 12:30 04/28/22 (units (unknown) date) unknown) (unknown) (no (unknown) (unknown) 12:30 (units (unkno wn) date) unknown) (unknown) (no (unknown) (unknown) 12:43 04/28/22 (units (unknown) date) unknown) (unknown) (no (unknown) (unknown) 13:00 (units (unkno wn) date) unknown) (unknown) (no (unknown) (unknown) 13:30 04/28/22 (units (unknown) date) unknown) (unknown) (no (unknown) (unknown) 13:41 14:05 14:05 (units (unknown) date) unknown) (unknown) (no (unknown) (unknown) 13:45 04/28/22 (units (unknown) date) unknown) (unknown) (no (unknown) (unknown) 13:45 (units (unkno wn) date) unknown) (unknown) (no (unknown) (unknown) 1415 went to (units (un known) date) recheck patient's unknown) pain, and other her IV has been removed due to it (unknown) (no (unknown) (unknown) 14:00 04/28/22 (units (unknown) date) unknown) (unknown) (no (unknown) (unknown) 14:30 04/28/22 (units (unknown) date) unknown) (unknown) (no (unknown) (unknown) 15:00 (units (unkno wn) date) unknown) (unknown) (no (unknown) (unknown) 15:30 04/28/22 (units (unknown) date) unknown) (unknown) (no (unknown) (unknown) 16:01 (units (unkno wn) date) unknown) (unknown) (no (unknown) (unknown) 2 mg PO Q6HP (units (u nknown) date) PRNQty: 8 0RF unknown) (unknown) (no (unknown) (unknown) 20 mg PO QAM Qty: (units (unknown) date) 3 0RF unknown) (unknown) (no (unknown) (unknown) 25 mg PO Q6HP (units ( unknown) date) PRNQty: 10 0RF unknown) (unknown) (no (unknown) (unknown) 98%. Patient (units (u nknown) date) received pain unknown) medication in route and caused her O2 sats drop (unknown) (no (unknown) (unknown) ? (units (unkno wn) date) unknown) (unknown) (no (unknown) (unknown) ALT 69 H (<35) (units (unknown) date) IU/L unknown) (unknown) (no (unknown) (unknown) ANTIBIOTICS)] (units ( unknown) date) unknown) (unknown) (no (unknown) (unknown) AST 129 H (14-36) (units (unknown) date) IU/L unknown) (unknown) (no (unknown) (unknown) Age/Sex: 41 / F (units (unknown) date) unknown) (unknown) (no (unknown) (unknown) Albumin 4.6 (units (un known) date) (3.5-5.0) g/dL unknown) (unknown) (no (unknown) (unknown) Albumin/Globulin (units (unknown) date) Ratio 1.2 unknown) (1.0-2.8) (unknown) (no (unknown) (unknown) Alkaline (units (unkno wn) date) Phosphatase 143 H unknown) (38-126) U/L (unknown) (no (unknown) (unknown) Allergies (units (unkn own) date) unknown) (unknown) (no (unknown) (unknown) Allergy/AdvReac (units (unknown) date) Type Severity unknown) Reaction Status Date / Time (unknown) (no (unknown) (unknown) Antibiotics) (units (u nknown) date) ITCHING unknown) (unknown) (no (unknown) (unknown) Approved by: (units (u nknown) date) Dolly Larsen M.D. unknown) on 04/28/2022 at 13:11 ? (unknown) (no (unknown) (unknown) Approved by: (units (u nknown) date) doc Vitale M.D. on 04/28/2022 at 13:06 ? (unknown) (no (unknown) (unknown) BUN 8 (7-17) (units (u nknown) date) mg/dL unknown) (unknown) (no (unknown) (unknown) BUN/Creatinine (units (unknown) date) Ratio 24.2 H unknown) (6-22) (unknown) (no (unknown) (unknown) Baso # (Auto) 0 (units (unknown) date) (0-100) /uL unknown) (unknown) (no (unknown) (unknown) Baso % (Auto) 0.4 (units (unknown) date) (0-2) % unknown) (unknown) (no (unknown) (unknown) Bedside Urine (units ( unknown) date) Bilirubin - unknown) Negative (unknown) (no (unknown) (unknown) Bedside Urine (units ( unknown) date) Glucose 1000 mg/dl unknown) (unknown) (no (unknown) (unknown) Bedside Urine (units ( unknown) date) Ketone +/- 5 unknown) (unknown) (no (unknown) (unknown) Bedside Urine (units ( unknown) date) Leukocytes - unknown) Negative (unknown) (no (unknown) (unknown) Bedside Urine (units ( unknown) date) Nitrite - Negative unknown) (unknown) (no (unknown) (unknown) Bedside Urine (units ( unknown) date) Occult Blood - unknown) Negative (unknown) (no (unknown) (unknown) Bedside Urine (units ( unknown) date) Protein +/- 15 unknown) (unknown) (no (unknown) (unknown) Bedside Urine (units ( unknown) date) Urobilinogen - unknown) Negative (unknown) (no (unknown) (unknown) Bedside Urine pH (units (unknown) date) 6.0 unknown) (unknown) (no (unknown) (unknown) Bipolar 1 (units (unkn own) date) disorder unknown) (unknown) (no (unknown) (unknown) Blood Pressure (units (unknown) date) 133/92 H 04/28/22 unknown) 12:20 (unknown) (no (unknown) (unknown) Blood Pressure (units (unknown) date) 133/92 H 138/88 unknown) (unknown) (no (unknown) (unknown) Blood Pressure (units (unknown) date) 152/81 H unknown) (unknown) (no (unknown) (unknown) Blood Pressure (units (unknown) date) unknown) (unknown) (no (unknown) (unknown) Bones and chest (units (unknown) date) wall:? No unknown) fractures or dislocations.? No suspicious bony (unknown) (no (unknown) (unknown) Bones:? No (units (unk nown) date) fractures or unknown) dislocations.? Pelvic ring appears intact.? No (unknown) (no (unknown) (unknown) C-Reactive (units (unk nown) date) Protein 1.6 H unknown) (<1.0) mg/dL (unknown) (no (unknown) (unknown) CBC Auto Diff (units ( unknown) date) [Complete Blood unknown) Count AUTO DIFF] Stat (unknown) (no (unknown) (unknown) CMP (units (unkno wn) date) [Comprehensive unknown) Metabolic Panel] Stat (unknown) (no (unknown) (unknown) COMPARISON:? (units (u nknown) date) None. unknown) (unknown) (no (unknown) (unknown) CRP [C-Reactive (units (unknown) date) Protein Quant] unknown) Stat (unknown) (no (unknown) (unknown) Calcium 9.1 (units (un known) date) (8.4-10.2) mg/dL unknown) (unknown) (no (unknown) (unknown) Carbon Dioxide 24 (units (unknown) date) (22-32) mmol/L unknown) (unknown) (no (unknown) (unknown) Cardiovascular (units (unknown) date) tachycardic rate unknown) and regular rhythm, no peripheral edema, warm (unknown) (no (unknown) (unknown) Chest x-ray: (units (u nknown) date) unknown) (unknown) (no (unknown) (unknown) Chief Complaint: (units (unknown) date) Fall onto her unknown) right side with hip pain (unknown) (no (unknown) (unknown) Chief Complaint: (units (unknown) date) Fall unknown) (unknown) (no (unknown) (unknown) Chloride 101 (units (u nknown) date) (98-107) mmol/L unknown) (unknown) (no (unknown) (unknown) Clinical decision (units (unknown) date) rules or scores unknown) evaluated: [place] and [place] head CT rule (unknown) (no (unknown) (unknown) Course of care (units (unknown) date) and unknown) re-evaluations: (unknown) (no (unknown) (unknown) Course (units (unkno wn) date) unknown) (unknown) (no (unknown) (unknown) Covid-19 + FLU (units (unknown) date) A/B + RSV - PCR unknown) Stat (unknown) (no (unknown) (unknown) Creatinine 0.33 L (units (unknown) date) (0.52-1.04) mg/dL unknown) (unknown) (no (unknown) (unknown) Currently she is (units (unknown) date) wearing 2 L nasal unknown) cannula but her pulse oximeter is reading (unknown) (no (unknown) (unknown) DIARRHEA, (units (unkn own) date) unknown) (unknown) (no (unknown) (unknown) : 1980 (units (unknown) date) Acct:[id number] unknown) (unknown) (no (unknown) (unknown) Date of Service: (units (unknown) date) 04/28/22 unknown) (unknown) (no (unknown) (unknown) Departure (units (unkn own) date) unknown) (unknown) (no (unknown) (unknown) Depression (units (unk nown) date) unknown) (unknown) (no (unknown) (unknown) Dictated by: (units (u nknown) date) Dolly Larsen M.D. unknown) on 04/28/2022 at 13:11 ? ? (unknown) (no (unknown) (unknown) Dictated by: (units (u nknown) date) doc Vitale M.D. on 04/28/2022 at 13:04 ? ? (unknown) (no (unknown) (unknown) Differential (units (u nknown) date) diagnoses include unknown) but are not limited to: Muscular Sprain/strain, (unknown) (no (unknown) (unknown) Diphenhydramine (units (unknown) date) HCl unknown) (Diphenhydramine 50 Mg/Ml Vial) 25 mg IV NOW ONE (unknown) (no (unknown) (unknown) Discharge Plan (units (unknown) date) unknown) (unknown) (no (unknown) (unknown) Discontinued (units (u nknown) date) Medications unknown) (unknown) (no (unknown) (unknown) Documented By: AT (units (unknown) date) unknown) (unknown) (no (unknown) (unknown) ECG Data (units (unkno wn) date) unknown) (unknown) (no (unknown) (unknown) ED Orders (units (unkn own) date) unknown) (unknown) (no (unknown) (unknown) EKG independently (units (unknown) date) reviewed by myself unknown) at [1340 reveals normal sinus rhythm at (unknown) (no (unknown) (unknown) EKG-12 Lead Stat (units (unknown) date) unknown) (unknown) (no (unknown) (unknown) ER Physician: (units ( unknown) date) Cassy Chan unknown) 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) (no (unknown) (unknown) Emergency Report (units (unknown) date) unknown) (unknown) (no (unknown) (unknown) Eos # (Auto) 200 (units (unknown) date) (0-450) /uL unknown) (unknown) (no (unknown) (unknown) Eos % (Auto) 2.2 (units (unknown) date) (2-4) % unknown) (unknown) (no (unknown) (unknown) Esterase (units (unkno wn) date) unknown) (unknown) (no (unknown) (unknown) Estimated GFR > (units (unknown) date) 60 (>60) mL/min unknown) (unknown) (no (unknown) (unknown) Exam Narrative: (units (unknown) date) unknown) (unknown) (no (unknown) (unknown) Exam (units (unkno wn) date) unknown) (unknown) (no (unknown) (unknown) Extremity x-ray (units (unknown) date) #2: unknown) (unknown) (no (unknown) (unknown) FINDINGS:? (units (unk nown) date) unknown) (unknown) (no (unknown) (unknown) GI: abdomen soft, (units (unknown) date) nontender to unknown) palpation, nondistended, without masses, rebound (unknown) (no (unknown) (unknown) General (units (unkno wn) date) unknown) (unknown) (no (unknown) (unknown) General: (units (unkno wn) date) cooperative, unknown) comfortable, in no acute distress, well groomed (unknown) (no (unknown) (unknown) Globulin 3.9 (units (u nknown) date) (1.7-4.1) g/dL unknown) (unknown) (no (unknown) (unknown) Glucose 170 H (units ( unknown) date) (70-100) mg/dL unknown) (unknown) (no (unknown) (unknown) HEADACHE (units (o wn) date) unknown) (unknown) (no (unknown) (unknown) HEENT: (units (o wn) date) symmetrical facial unknown) expressions, moist mucous membranes (unknown) (no (unknown) (unknown) HPI - Fall (units (unk n) date) unknown) (unknown) (no (unknown) (unknown) HPI Narrative: (units (unknown) date) unknown) (unknown) (no (unknown) (unknown) Hct 40.1 (36-46) (units (unknown) date) % unknown) (unknown) (no (unknown) (unknown) Her pain improved (units (unknown) date) after those unknown) medications. (unknown) (no (unknown) (unknown) Hgb 13.2 (units (o wn) date) (12.0-16.0) g/dL unknown) (unknown) (no (unknown) (unknown) History of (units (unk ) date) Present Illness unknown) (unknown) (no (unknown) (unknown) Hydromorphone HCl (units (unknown) date) (Hydromorphone 0.5 unknown) Mg Inj) 0.5 mg IV NOW ONE (unknown) (no (unknown) (unknown) Hydromorphone HCl (units (unknown) date) (Hydromorphone 2 unknown) Mg Tablet) 2 mg PO NOW ONE (unknown) (no (unknown) (unknown) I evaluated the (units (unknown) date) patient and found unknown) her to have rectal tone. (unknown) (no (unknown) (unknown) I have reviewed (units (unknown) date) the patient's unknown) vital signs and nursing notes as well as prior (unknown) (no (unknown) (unknown) IMPRESSION:? No (units (unknown) date) trauma found, no unknown) pneumothorax identified. (unknown) (no (unknown) (unknown) IMPRESSION:? No (units (unknown) date) visualized acute unknown) fracture or dislocation. However, if clinical (unknown) (no (unknown) (unknown) INDICATIONS:? (units ( unknown) date) Fall unknown) (unknown) (no (unknown) (unknown) INFECTION (units (unkn own) date) unknown) (unknown) (no (unknown) (unknown) ITCHING (units (unkno wn) date) unknown) (unknown) (no (unknown) (unknown) Imaging Data (units (u nknown) date) unknown) (unknown) (no (unknown) (unknown) Independently (units ( unknown) date) reviewed imaging unknown) including: Right hip and right ribs x-ray (unknown) (no (unknown) (unknown) Influenza A (units (un known) date) (RT-PCR) Flu a unknown) negative (NEGATIVE) (unknown) (no (unknown) (unknown) Influenza B (units (un known) date) (RT-PCR) Flu b unknown) negative (NEGATIVE) (unknown) (no (unknown) (unknown) Initial Vital (units ( unknown) date) Signs unknown) (unknown) (no (unknown) (unknown) Initial Vital (units ( unknown) date) Signs: unknown) (unknown) (no (unknown) (unknown) Interpretation: (units (unknown) date) unknown) (unknown) (no (unknown) (unknown) [facility] (units (unknown) date) [address] unknown) [place] [address] (unknown) (no (unknown) (unknown) Ketorolac (units (unkn own) date) Tromethamine unknown) (Ketorolac 30 Mg/Ml Vial) 15 mg IV NOW ONE (unknown) (no (unknown) (unknown) Ketorolac (units (unkn own) date) Tromethamine unknown) (Ketorolac 30 Mg/Ml Vial) 30 mg IM NOW ONE (unknown) (no (unknown) (unknown) Lab Data (units (unkno wn) date) unknown) (unknown) (no (unknown) (unknown) Lab Results (units (un known) date) unknown) (unknown) (no (unknown) (unknown) Lab test results (units (unknown) date) independently unknown) reviewed, pertinent findings: Respiratory panel (unknown) (no (unknown) (unknown) Labs: (units (unkno wn) date) unknown) (unknown) (no (unknown) (unknown) Last Admin: (units (un known) date) 04/28/22 14:19 unknown) Dose: Not Given (unknown) (no (unknown) (unknown) Last Admin: (units (un known) date) 04/28/22 14:20 unknown) Dose: Not Given (unknown) (no (unknown) (unknown) Last Admin: (units (un known) date) 04/28/22 14:29 unknown) Dose: 12.5 mg (unknown) (no (unknown) (unknown) Last Admin: (units (un known) date) 04/28/22 14:29 unknown) Dose: 2 mg (unknown) (no (unknown) (unknown) Last Admin: (units (un known) date) 04/28/22 14:30 unknown) Dose: 750 mg (unknown) (no (unknown) (unknown) Last Admin: (units (un known) date) 04/28/22 16:05 unknown) Dose: 200 mg (unknown) (no (unknown) (unknown) Last Admin: (units (un known) date) 04/28/22 16:05 unknown) Dose: 30 mg (unknown) (no (unknown) (unknown) Lungs and (units (unkn own) date) pleura:? No unknown) pleural effusions or pneumothorax.? Lungs appear clear.? (unknown) (no (unknown) (unknown) Lymph # (Auto) (units (unknown) date) 2600 (1828-1152) unknown) /uL (unknown) (no (unknown) (unknown) Lymph % (Auto) (units (unknown) date) 39.2 (25-40) % unknown) (unknown) (no (unknown) (unknown) MCH 25.5 L (units (unk nown) date) (26-34) PG unknown) (unknown) (no (unknown) (unknown) MCHC 32.8 (30-36) (units (unknown) date) % unknown) (unknown) (no (unknown) (unknown) MCV 77.6 L (units (unk nown) date) (80-100) fL unknown) (unknown) (no (unknown) (unknown) MDM - Fall (units (unk nown) date) unknown) (unknown) (no (unknown) (unknown) MDM Narrative (units ( unknown) date) unknown) (unknown) (no (unknown) (unknown) MIPS: This (units (unk nown) date) encounter doesn't unknown) have any diagnosis' associated with MIPS criteria. (unknown) (no (unknown) (unknown) MSK: moves all (units (unknown) date) extremities, unknown) neurovascularly intact, no weakness, normal tone, (unknown) (no (unknown) (unknown) Mediastinum:? (units ( unknown) date) Mediastinal unknown) contours appear normal.? Heart size is normal.? (unknown) (no (unknown) (unknown) Medical History (units (unknown) date) (Updated 10/03/18 unknown) @ 00:00 by ) (unknown) (no (unknown) (unknown) Medical decision (units (unknown) date) making narrative: unknown) (unknown) (no (unknown) (unknown) Medication (units (unk nown) date) Instructions unknown) Recorded (unknown) (no (unknown) (unknown) Met with the (units (u nknown) date) patient, ordered unknown) her pain medication per her request, she states (unknown) (no (unknown) (unknown) Methocarbamol (units ( unknown) date) (Methocarbamol 500 unknown) Mg Tablet) 750 mg PO NOW ONE (unknown) (no (unknown) (unknown) Metoclopramide (units (unknown) date) HCl unknown) (Metoclopramide 10 Mg/2 Ml Inj) 10 mg IV NOW ONE (unknown) (no (unknown) (unknown) Mode of arrival: (units (unknown) date) EMS unknown) (unknown) (no (unknown) (unknown) [place] # (Auto) 300 (units (unknown) date) (0-900) /uL unknown) (unknown) (no (unknown) (unknown) [place] % (Auto) 4.4 (units (unknown) date) (3-14) % unknown) (unknown) (no (unknown) (unknown) Narrative (units (unkn own) date) unknown) (unknown) (no (unknown) (unknown) Neuro: normal (units ( unknown) date) speech and unknown) cognition, A+O x3, ambulatory, clear speech (unknown) (no (unknown) (unknown) Neut # (Auto) (units ( unknown) date) 3600 (2276-7563) unknown) /uL (unknown) (no (unknown) (unknown) Neut % (Auto) (units ( unknown) date) 53.8 (50-75) % unknown) (unknown) (no (unknown) (unknown) Night terrors, (units (unknown) date) adult unknown) (unknown) (no (unknown) (unknown) No Action (units (unkn own) date) unknown) (unknown) (no (unknown) (unknown) Ordered UA, (units (un known) date) patient states unknown) that she thinks she can void. (unknown) (no (unknown) (unknown) Ordered: (units (unkno wn) date) unknown) (unknown) (no (unknown) (unknown) Orders (units (unkno wn) date) unknown) (unknown) (no (unknown) (unknown) Overlying soft (units (unknown) date) tissues appear unknown) unremarkable.? (unknown) (no (unknown) (unknown) Oxygen Delivery (units (unknown) date) Method 04/28/22 unknown) 12:20 (unknown) (no (unknown) (unknown) Oxygen Delivery (units (unknown) date) Method Nasal unknown) Cannula Room Air Room Air (unknown) (no (unknown) (unknown) Oxygen Delivery (units (unknown) date) Method Room Air unknown) Nasal Cannula (unknown) (no (unknown) (unknown) Oxygen Delivery (units (unknown) date) Method Room Air unknown) Room Air (unknown) (no (unknown) (unknown) Oxygen Delivery (units (unknown) date) Method Room Air unknown) (unknown) (no (unknown) (unknown) Oxygen Delivery (units (unknown) date) Method unknown) (unknown) (no (unknown) (unknown) Oxygen Flow Rate (units (unknown) date) 1 unknown) (unknown) (no (unknown) (unknown) Oxygen Flow Rate (units (unknown) date) 2 unknown) (unknown) (no (unknown) (unknown) Oxygen Flow Rate (units (unknown) date) unknown) (unknown) (no (unknown) (unknown) PROCEDURE:? XR (units (unknown) date) HIP W PEL IF DONE unknown) RT 2V (unknown) (no (unknown) (unknown) PROCEDURE:? XR (units (unknown) date) RIBS RT MIN 3V W unknown) CXR 1V (unknown) (no (unknown) (unknown) Patient (units (unkno wn) date) Disposition: Home unknown) (unknown) (no (unknown) (unknown) Patient History (units (unknown) date) unknown) (unknown) (no (unknown) (unknown) Patient is able (units (unknown) date) to ambulate and unknown) ambulated on the monitor with a heart rate of (unknown) (no (unknown) (unknown) Patient is (units (unk nown) date) appropriate for unknown) outpatient management. (unknown) (no (unknown) (unknown) Patient's (units (unkn own) date) symptoms improved unknown) over duration of stay with above-stated therapies. (unknown) (no (unknown) (unknown) Patient: (units (unkno wn) date) Leatha Cartwright unknown) MR#: [id number] (unknown) (no (unknown) (unknown) Phenazopyridine (units (unknown) date) HCl unknown) (Phenazopyridine 100 Mg Tablet) 200 mg PO NOW ONE (unknown) (no (unknown) (unknown) Plt Count 207 (units ( unknown) date) (150-400) X103/uL unknown) (unknown) (no (unknown) (unknown) Point of Care (units ( unknown) date) Testing unknown) (unknown) (no (unknown) (unknown) Potassium 3.9 (units ( unknown) date) (3.4-5.1) mmol/L unknown) (unknown) (no (unknown) (unknown) Test (units (unknown) date) Results Negative unknown) (unknown) (no (unknown) (unknown) Prescriptions: (units (unknown) date) unknown) (unknown) (no (unknown) (unknown) Previous Rx's (units ( unknown) date) unknown) (unknown) (no (unknown) (unknown) Procalcitonin (units ( unknown) date) 0.12 (<0.5) ng/mL unknown) (unknown) (no (unknown) (unknown) Procalcitonin (units ( unknown) date) Stat unknown) (unknown) (no (unknown) (unknown) Promethazine HCl (units (unknown) date) (Promethazine 25 unknown) Mg Tablet) 12.5 mg PO NOW ONE (unknown) (no (unknown) (unknown) Psych: mental (units ( unknown) date) status is grossly unknown) normal, congruent mood, normal affect, pleasant (unknown) (no (unknown) (unknown) Pulse Oximetry (units (unknown) date) 100 04/28/22 12:20 unknown) (unknown) (no (unknown) (unknown) Pulse Oximetry (units (unknown) date) 100 96 unknown) (unknown) (no (unknown) (unknown) Pulse Oximetry 91 (units (unknown) date) 94 unknown) (unknown) (no (unknown) (unknown) Pulse Oximetry 94 (units (unknown) date) 96 unknown) (unknown) (no (unknown) (unknown) Pulse Oximetry 96 (units (unknown) date) 93 93 unknown) (unknown) (no (unknown) (unknown) Pulse Oximetry 96 (units (unknown) date) 95 91 unknown) (unknown) (no (unknown) (unknown) Pulse Rate 111 H (units (unknown) date) 105 H unknown) (unknown) (no (unknown) (unknown) Pulse Rate 111 H (units (unknown) date) 115 H unknown) (unknown) (no (unknown) (unknown) Pulse Rate 114 H (units (unknown) date) 04/28/22 12:20 unknown) (unknown) (no (unknown) (unknown) Pulse Rate 114 H (units (unknown) date) 112 H unknown) (unknown) (no (unknown) (unknown) Pulse Rate 118 H (units (unknown) date) 122 H unknown) (unknown) (no (unknown) (unknown) Pulse Rate 123 H (units (unknown) date) 120 H 122 H unknown) (unknown) (no (unknown) (unknown) Questions are (units ( unknown) date) addressed and unknown) there is agreement with the plan and for follow-up. (unknown) (no (unknown) (unknown) RBC 5.16 (units (unkno wn) date) (4.0-5.2) X106/uL unknown) (unknown) (no (unknown) (unknown) RDW 15.2 H (units (unk nown) date) (11.6-14.8) % unknown) (unknown) (no (unknown) (unknown) ROS Unobtainable: (units (unknown) date) All systems unknown) reviewed + are unremarkable except as noted in HPI (unknown) (no (unknown) (unknown) RSV (PCR) (units (unkn own) date) Negative unknown) (Negative) (unknown) (no (unknown) (unknown) Radiologist's (units ( unknown) date) Impression: unknown) (unknown) (no (unknown) (unknown) Related Data (units (u nknown) date) unknown) (unknown) (no (unknown) (unknown) Respiratory Rate (units (unknown) date) 16 04/28/22 12:20 unknown) (unknown) (no (unknown) (unknown) Respiratory Rate (units (unknown) date) 16 unknown) (unknown) (no (unknown) (unknown) Respiratory Rate (units (unknown) date) 18 unknown) (unknown) (no (unknown) (unknown) Respiratory Rate (units (unknown) date) unknown) (unknown) (no (unknown) (unknown) Respiratory: (units (u nknown) date) normal effort, unknown) able to speak in complete sentences, without (unknown) (no (unknown) (unknown) Review of Systems (units (unknown) date) unknown) (unknown) (no (unknown) (unknown) Reviewed vitals (units (unknown) date) signs and nursing unknown) notes. (unknown) (no (unknown) (unknown) SARS-CoV-2 (PCR) (units (unknown) date) Negative unknown) (Negative) (unknown) (no (unknown) (unknown) Shared decision (units (unknown) date) making: With the unknown) patient about all of her care. She states (unknown) (no (unknown) (unknown) She states that (units (unknown) date) she is allergic to unknown) multiple antibiotics, she takes Dilaudid for (unknown) (no (unknown) (unknown) Signed By: (units (unk nown) date) unknown) (unknown) (no (unknown) (unknown) Skin: brisk (units (un known) date) capillary refill, unknown) without pallor or erythema (unknown) (no (unknown) (unknown) Smoking Status: (units (unknown) date) Former smoker unknown) (unknown) (no (unknown) (unknown) Social History (units (unknown) date) (Reviewed 09/18/18 unknown) @ 10:12 by Roxanne Thomas DO) (unknown) (no (unknown) (unknown) Social (units (unkno wn) date) considerations unknown) that may affect disposition: (unknown) (no (unknown) (unknown) Sodium 139 (units (unk nown) date) (137-145) mmol/L unknown) (unknown) (no (unknown) (unknown) Sodium Chloride (units (unknown) date) (Normal Saline unknown) 0.9%) 1,000 mls @ 1,000 mls/hr IV BOLUS ONE (unknown) (no (unknown) (unknown) Soft tissues:? (units (unknown) date) The visualized unknown) bowel gas pattern is normal.? No suspicious soft (unknown) (no (unknown) (unknown) Source: patient (units (unknown) date) and EMS unknown) (unknown) (no (unknown) (unknown) Stand Alone (units (un known) date) Forms: Patient unknown) Portal/API (unknown) (no (unknown) (unknown) Stated Complaint: (units (unknown) date) R Hip snap crackle unknown) pop (unknown) (no (unknown) (unknown) Stop: 04/28/22 (units (unknown) date) 13:19 unknown) (unknown) (no (unknown) (unknown) Stop: 04/28/22 (units (unknown) date) 13:22 unknown) (unknown) (no (unknown) (unknown) Stop: 04/28/22 (units (unknown) date) 14:13 unknown) (unknown) (no (unknown) (unknown) Stop: 04/28/22 (units (unknown) date) 14:20 unknown) (unknown) (no (unknown) (unknown) Stop: 04/28/22 (units (unknown) date) 15:29 unknown) (unknown) (no (unknown) (unknown) Substance Use (units ( unknown) date) Type: does not use unknown) (unknown) (no (unknown) (unknown) Sulfa (units (unkno wn) date) (Sulfonamide unknown) Allergy Severe NAUSEA, Verified 04/28/22 12:26 (unknown) (no (unknown) (unknown) Surgical changes (units (unknown) date) and devices:? unknown) None.? (unknown) (no (unknown) (unknown) TECHNIQUE:? AP (units (unknown) date) pelvis with unknown) lateral view(s) of the right hip(s).? (unknown) (no (unknown) (unknown) TECHNIQUE:? Two (units (unknown) date) views of the right unknown) ribs were acquired, along with a single view (unknown) (no (unknown) (unknown) TING (units (unkno wn) date) unknown) (unknown) (no (unknown) (unknown) Temperature 97.9 (units (unknown) date) F 04/28/22 12:20 unknown) (unknown) (no (unknown) (unknown) Temperature 97.9 (units (unknown) date) F unknown) (unknown) (no (unknown) (unknown) Temperature (units (un known) date) unknown) (unknown) (no (unknown) (unknown) This is a (units (unkn own) date) 41-year-old female unknown) presents to the emergency department via EMS after (unknown) (no (unknown) (unknown) Time Seen by (units (u nknown) date) Provider: 04/28/22 unknown) 12:55 (unknown) (no (unknown) (unknown) Total Bilirubin (units (unknown) date) 0.6 (0.2-1.3) unknown) mg/dL (unknown) (no (unknown) (unknown) Total Protein 8.5 (units (unknown) date) H (6.3-8.2) g/dL unknown) (unknown) (no (unknown) (unknown) Urine Dip (units (unkn own) date) unknown) (unknown) (no (unknown) (unknown) Urine Microscopic (units (unknown) date) Stat unknown) (unknown) (no (unknown) (unknown) Urine Specific (units (unknown) date) [place] 1.025 unknown) (unknown) (no (unknown) (unknown) Vital Signs - 8 (units (unknown) date) hr unknown) (unknown) (no (unknown) (unknown) Vital Signs (units (un known) date) unknown) (unknown) (no (unknown) (unknown) Vital signs: (units (u nknown) date) unknown) (unknown) (no (unknown) (unknown) WBC 6.7 (units (unkno wn) date) (4.5-11.0) X103/uL unknown) (unknown) (no (unknown) (unknown) XR hip w pel if (units (unknown) date) done RT 2V Stat unknown) (unknown) (no (unknown) (unknown) XR ribs RT min 3V (units (unknown) date) w CXR1V Stat unknown) (unknown) (no (unknown) (unknown) Zofran. She is (units (unknown) date) slurring her words unknown) mildly but is sitting upright, without (unknown) (no (unknown) (unknown) [117] bpm with (units (unknown) date) regular axis and unknown) prolonged QT 450 milliseconds without other (unknown) (no (unknown) (unknown) [Embedded Image (units (unknown) date) Not Available] unknown) (unknown) (no (unknown) (unknown) [SULFA (units (unkno wn) date) (SULFONAMIDE unknown) (unknown) (no (unknown) (unknown) a mechanical fall (units (unknown) date) where she was unknown) walking outside onto her right side and now (unknown) (no (unknown) (unknown) alcohol intake (units (unknown) date) frequency: unknown) holidays/special occasions only (unknown) (no (unknown) (unknown) alert. (units (unkno wn) date) unknown) (unknown) (no (unknown) (unknown) amoxicillin (units (un known) date) [AMOXICILLIN] unknown) AdvReac Intermediate YEAST Verified 04/28/22 12:26 (unknown) (no (unknown) (unknown) and below (units (unkn own) date) unknown) (unknown) (no (unknown) (unknown) and cooperative (units (unknown) date) unknown) (unknown) (no (unknown) (unknown) and/or pain (units (un known) date) persist, short unknown) interval imaging followup in 7-10 days is (unknown) (no (unknown) (unknown) calcifications.? (units (unknown) date) unknown) (unknown) (no (unknown) (unknown) cephalexin (units (unk nown) date) [CEPHALEXIN] unknown) Allergy Unknown NAUSEA/VOMI Verified 04/28/22 12:26 (unknown) (no (unknown) (unknown) changes. (units (unkno wn) date) unknown) (unknown) (no (unknown) (unknown) chest.? (units (unkno wn) date) unknown) (unknown) (no (unknown) (unknown) codeine [CODEINE] (units (unknown) date) Allergy Mild unknown) NAUSEA, Verified 04/28/22 12:26 (unknown) (no (unknown) (unknown) complains of (units (u nknown) date) right-sided hip unknown) pain. She states that she is had a history hip (unknown) (no (unknown) (unknown) concern (units (unkno wn) date) unknown) (unknown) (no (unknown) (unknown) diaphoresis, (units (u nknown) date) shortness of unknown) breath, difficulty breathing, chest pain, weakness, (unknown) (no (unknown) (unknown) ecchymosis or (units ( unknown) date) obvious deformity, unknown) no pain to right hip with axial load from foot (unknown) (no (unknown) (unknown) electrolyte (units (un known) date) abnormalities of unknown) concern, mild increase of alk-phos to 143, AST of (unknown) (no (unknown) (unknown) emesis, does not (units (unknown) date) feel neck pain, unknown) denies LOC. (unknown) (no (unknown) (unknown) extremities (units (un known) date) unknown) (unknown) (no (unknown) (unknown) help of 2 people (units (unknown) date) but states she was unknown) unable to bear weight on this side. Patient (unknown) (no (unknown) (unknown) hip fracture, (units ( unknown) date) acute cystitis, unknown) pyelonephritis, PID, nephrolithiasis, obstructive (unknown) (no (unknown) (unknown) hip. Patient has (units (unknown) date) a history of unknown) bipolar disorder, has had emotional episodes in (unknown) (no (unknown) (unknown) history of low (units (unknown) date) back pain, has unknown) documented history kidney stone and hematuria in (unknown) (no (unknown) (unknown) hydrocodone 5 (units ( unknown) date) mg-acetaminophen unknown) 325 1 tab PO Q6H PRN pain #10 tabs 09/18/18 (unknown) (no (unknown) (unknown) hydrocodone-aceta (units (unknown) date) minophen [[place]] unknown) 5-325 mg tablet (unknown) (no (unknown) (unknown) hydromorphone 2 (units (unknown) date) mg tablet 2 mg PO unknown) Q6HP PRN #8 tabs 01/11/16 (unknown) (no (unknown) (unknown) hydromorphone (units ( unknown) date) [Dilaudid] 2 MG unknown) tablet (unknown) (no (unknown) (unknown) hyperventilating, (units (unknown) date) her heart rate unknown) goes up, she complains never having (unknown) (no (unknown) (unknown) hypoxia, wearing (units (unknown) date) 2 L nasal cannula unknown) as she became sedated in the ambulance EN (unknown) (no (unknown) (unknown) incontinence (units (u nknown) date) before. She says unknown) that she did not feel it coming on. She states (unknown) (no (unknown) (unknown) incontinence, (units ( unknown) date) abdominal pain, unknown) flank pain or other pain. She denies any (unknown) (no (unknown) (unknown) interval changes. (units (unknown) date) No STEMI, ST unknown) segment changes, arrhythmia, or acute ischemic (unknown) (no (unknown) (unknown) is negative for (units (unknown) date) tested viruses, no unknown) leukocytosis or anemia, no left shift, no (unknown) (no (unknown) (unknown) is sitting up on (units (unknown) date) the stretcher, unknown) appears comfortable, is talkative, received 200 (unknown) (no (unknown) (unknown) ketorolac 10 MG (units (unknown) date) tablet unknown) (unknown) (no (unknown) (unknown) ketorolac 10 mg (units (unknown) date) tablet 10 mg PO unknown) Q6HP PRN #10 tabs 01/11/16 (unknown) (no (unknown) (unknown) lesions.? (units (unkn own) date) unknown) (unknown) (no (unknown) (unknown) levofloxacin (units (u nknown) date) [LEVOFLOXACIN] unknown) Allergy Unknown N/V, Verified 04/28/22 12:26 (unknown) (no (unknown) (unknown) lower extremities (units (unknown) date) in the past. She unknown) has history of bladder stimulator, denies (unknown) (no (unknown) (unknown) mcgs of fentanyl (units (unknown) date) EN route. Patient unknown) denies any in her head, did not have any (unknown) (no (unknown) (unknown) mg tablet ([place]) (units (unknown) date) unknown) (unknown) (no (unknown) (unknown) motion of her (units ( unknown) date) right knee and unknown) right foot with good perfusion, palpable pedal (unknown) (no (unknown) (unknown) nontender over (units (unknown) date) spine, patient unknown) complains of pain to the right iliac crest with (unknown) (no (unknown) (unknown) not working. (units (u nknown) date) Patient tells me unknown) that she was incontinent. She starts (unknown) (no (unknown) (unknown) occult injury (units ( unknown) date) cannot be unknown) definitively excluded. (unknown) (no (unknown) (unknown) pain at home, (units ( unknown) date) also uses unknown) Phenergan and states that Zofran is not adequate. She (unknown) (no (unknown) (unknown) pain with (units (unkn own) date) ambulation for the unknown) last 2-3 months. She denies any surgeries over (unknown) (no (unknown) (unknown) palpation, full (units (unknown) date) range of motion of unknown) right hip is without weakness. Full range of (unknown) (no (unknown) (unknown) palpation, (units (unk nown) date) unknown) (unknown) (no (unknown) (unknown) prednisone 20 MG (units (unknown) date) tablet unknown) (unknown) (no (unknown) (unknown) prednisone 20 mg (units (unknown) date) tablet 20 mg PO unknown) QAM #3 tabs 01/11/16 (unknown) (no (unknown) (unknown) promethazine 25 (units (unknown) date) MG tablet unknown) (unknown) (no (unknown) (unknown) promethazine 25 (units (unknown) date) mg tablet 25 mg PO unknown) Q6HP PRN #10 tabs 05/12/16 (unknown) (no (unknown) (unknown) promethazine 25 (units (unknown) date) mg tablet 25 mg PO unknown) Q6HP PRN #10 tabs 01/11/16 (unknown) (no (unknown) (unknown) pulses. Brisk cap (units (unknown) date) refill in her unknown) toes. She denies any sensation deficit. No (unknown) (no (unknown) (unknown) recommended, as (units (unknown) date) unknown) (unknown) (no (unknown) (unknown) records if (units (unk nown) date) available. unknown) (unknown) (no (unknown) (unknown) route after (units (un known) date) receiving unknown) fentanyl. No concerning findings on exam of her right (unknown) (no (unknown) (unknown) sensation (units (unkn own) date) changes, states unknown) that after the fall she was able to get up with the (unknown) (no (unknown) (unknown) she is nauseated (units (unknown) date) but has not had unknown) vomiting and requests something stronger than (unknown) (no (unknown) (unknown) states that she (units (unknown) date) is had a low-grade unknown) fever for the last 2 days but denies (unknown) (no (unknown) (unknown) suspicious bony (units (unknown) date) unknown) (unknown) (no (unknown) (unknown) tenderness or (units ( unknown) date) exquisite unknown) tenderness with exam. Right CVA tenderness with (unknown) (no (unknown) (unknown) that her pain is (units (unknown) date) improved after unknown) medications (unknown) (no (unknown) (unknown) that she still (units (unknown) date) needs to void, the unknown) nurse was called. (unknown) (no (unknown) (unknown) the emergency (units ( unknown) date) department and unknown) states that she is extremely anxious and is unable (unknown) (no (unknown) (unknown) the past and (units (u nknown) date) endorses that she unknown) feels like she has a urinary tract infection. (unknown) (no (unknown) (unknown) tissue (units (unkno wn) date) unknown) (unknown) (no (unknown) (unknown) to communicate or (units (unknown) date) do anything at unknown) those times. (unknown) (no (unknown) (unknown) to feel much (units (u nknown) date) better at 16:10. unknown) (unknown) (no (unknown) (unknown) uropathy, (units (unkn own) date) unknown) (unknown) (no (unknown) (unknown) wheezing, (units (unkn own) date) stridor, or unknown) abnormal breath sounds. No retractions or tachypnea. (unknown) (no (unknown) (unknown) while she was (units (u nknown) date) lying down, she unknown) was started on this but now is much more awake and (unknown) (no (unknown) (unknown) without (units (unkno wn) date) indication for CT unknown) imaging of C-spine or head (unknown) (no (unknown) (unknown) without (units (unkno wn) date) pneumothorax, unknown) acute fracture or other acute abnormality. Result panel 91 (unknown) (no (unknown) (unknown) (no value) (units (unk nown) date) unknown) (unknown) (no (unknown) (unknown) (Dilaudid) (units (unk nown) date) unknown) (unknown) (no (unknown) (unknown) (Pyridium) tabs (units (unknown) date) unknown) (unknown) (no (unknown) (unknown) *If you do not (units (unknown) date) have a primary unknown) care provider please contact [phone] to (unknown) (no (unknown) (unknown) *Please continue (units (unknown) date) to take your unknown) regular medications as directed. (unknown) (no (unknown) (unknown) *Please follow up (units (unknown) date) with your primary unknown) care provider in 2-3 days, call for an (unknown) (no (unknown) (unknown) *Return to (units (unk nown) date) Emergency unknown) Department if you should have any new, worsening, or (unknown) (no (unknown) (unknown) *What to do: (units (u nknown) date) unknown) (unknown) (no (unknown) (unknown) *You have been (units (unknown) date) diagnosed with unknown) urinary tract infection, fall with a right hip (unknown) (no (unknown) (unknown) [id number] (units (unkno wn) date) unknown) (unknown) (no (unknown) (unknown) 04/28/22 04/28/22 (units (unknown) date) 04/28/22 unknown) Range/Units (unknown) (no (unknown) (unknown) 04/28/22 12:29 (units (unknown) date) unknown) (unknown) (no (unknown) (unknown) 04/28/22 12:30 (units (unknown) date) unknown) (unknown) (no (unknown) (unknown) 04/28/22 13:37 (units (unknown) date) unknown) (unknown) (no (unknown) (unknown) 04/28/22 13:41 (units (unknown) date) unknown) (unknown) (no (unknown) (unknown) 04/28/22 14:05 (units (unknown) date) unknown) (unknown) (no (unknown) (unknown) 04/28/22 15:19 (units (unknown) date) unknown) (unknown) (no (unknown) (unknown) 04/28/22 (units (unkno wn) date) Range/Units unknown) (unknown) (no (unknown) (unknown) 04/28/22 (units (unkno wn) date) unknown) (unknown) (no (unknown) (unknown) 1 tab PO Q6H PRN (units (unknown) date) (Reason: pain) unknown) Qty: 10 0RF (unknown) (no (unknown) (unknown) 10 mg PO Q6HP (units ( unknown) date) PRNQty: 10 0RF unknown) (unknown) (no (unknown) (unknown) 100 mg PO BID 5 (units (unknown) date) Days Qty: 10 0RF unknown) (unknown) (no (unknown) (unknown) 105, she received (units (unknown) date) her ketorolac at unknown) 16:00 and states that she is already starting (unknown) (no (unknown) (unknown) 12.5 mg PO BID (units (unknown) date) Qty: 10 0RF unknown) (unknown) (no (unknown) (unknown) 129 and ALT of 69 (units (unknown) date) but no tenderness unknown) over her right upper quadrant to palpation. (unknown) (no (unknown) (unknown) 12:20 04/28/22 (units (unknown) date) unknown) (unknown) (no (unknown) (unknown) 12:25 04/28/22 (units (unknown) date) unknown) (unknown) (no (unknown) (unknown) 12:30 04/28/22 (units (unknown) date) unknown) (unknown) (no (unknown) (unknown) 12:30 (units (unkno wn) date) unknown) (unknown) (no (unknown) (unknown) 12:43 04/28/22 (units (unknown) date) unknown) (unknown) (no (unknown) (unknown) 13:00 (units (unkno wn) date) unknown) (unknown) (no (unknown) (unknown) 13:30 04/28/22 (units (unknown) date) unknown) (unknown) (no (unknown) (unknown) 13:41 14:05 14:05 (units (unknown) date) unknown) (unknown) (no (unknown) (unknown) 13:45 04/28/22 (units (unknown) date) unknown) (unknown) (no (unknown) (unknown) 13:45 (units (unkno wn) date) unknown) (unknown) (no (unknown) (unknown) 1415 went to (units (un known) date) recheck patient's unknown) pain, and other her IV has been removed due to it (unknown) (no (unknown) (unknown) 14:00 04/28/22 (units (unknown) date) unknown) (unknown) (no (unknown) (unknown) 14:30 04/28/22 (units (unknown) date) unknown) (unknown) (no (unknown) (unknown) 15:00 (units (unkno wn) date) unknown) (unknown) (no (unknown) (unknown) 15:19 (units (unkno wn) date) unknown) (unknown) (no (unknown) (unknown) 15:30 04/28/22 (units (unknown) date) unknown) (unknown) (no (unknown) (unknown) 16:01 (units (unkno wn) date) unknown) (unknown) (no (unknown) (unknown) 2 mg PO Q6HP (units (u nknown) date) PRNQty: 8 0RF unknown) (unknown) (no (unknown) (unknown) 20 mg PO QAM Qty: (units (unknown) date) 3 0RF unknown) (unknown) (no (unknown) (unknown) 200 mg PO QPC PRN (units (unknown) date) (Reason: pain) unknown) Qty: 7 0RF (unknown) (no (unknown) (unknown) 25 mg PO Q6HP (units ( unknown) date) PRNQty: 10 0RF unknown) (unknown) (no (unknown) (unknown) 98%. Patient (units (u nknown) date) received pain unknown) medication in route and caused her O2 sats drop (unknown) (no (unknown) (unknown) ? (units (unkno wn) date) unknown) (unknown) (no (unknown) (unknown) ALT (<35) IU/L (units (unknown) date) unknown) (unknown) (no (unknown) (unknown) ALT 69 H (<35) (units (unknown) date) IU/L unknown) (unknown) (no (unknown) (unknown) ANTIBIOTICS)] (units ( unknown) date) unknown) (unknown) (no (unknown) (unknown) AST (14-36) IU/L (units (unknown) date) unknown) (unknown) (no (unknown) (unknown) AST 129 H (14-36) (units (unknown) date) IU/L unknown) (unknown) (no (unknown) (unknown) Activity (units (unkno wn) date) Restrictions/Addit unknown) ional Instructions: (unknown) (no (unknown) (unknown) Acute dehydration (units (unknown) date) unknown) (unknown) (no (unknown) (unknown) Age/Sex: 41 / F (units (unknown) date) unknown) (unknown) (no (unknown) (unknown) Albumin (3.5-5.0) (units (unknown) date) g/dL unknown) (unknown) (no (unknown) (unknown) Albumin 4.6 (units (un known) date) (3.5-5.0) g/dL unknown) (unknown) (no (unknown) (unknown) Albumin/Globulin (units (unknown) date) Ratio (1.0-2.8) unknown) (unknown) (no (unknown) (unknown) Albumin/Globulin (units (unknown) date) Ratio 1.2 unknown) (1.0-2.8) (unknown) (no (unknown) (unknown) Alkaline (units (unkno wn) date) Phosphatase unknown) (38-126) U/L (unknown) (no (unknown) (unknown) Alkaline (units (unkno wn) date) Phosphatase 143 H unknown) (38-126) U/L (unknown) (no (unknown) (unknown) Allergies (units (unkn own) date) unknown) (unknown) (no (unknown) (unknown) Allergy/AdvReac (units (unknown) date) Type Severity unknown) Reaction Status Date / Time (unknown) (no (unknown) (unknown) [place]] (units (unk nown) date) unknown) (unknown) (no (unknown) (unknown) Antibiotics) (units (u nknown) date) ITCHING unknown) (unknown) (no (unknown) (unknown) Approved by: (units (u nknown) date) Dolly Larsen M.D. unknown) on 04/28/2022 at 13:11 ? (unknown) (no (unknown) (unknown) Approved by: (units (u nknown) date) doc Vitale M.D. on 04/28/2022 at 13:06 ? (unknown) (no (unknown) (unknown) BUN (7-17) mg/dL (units (unknown) date) unknown) (unknown) (no (unknown) (unknown) BUN 8 (7-17) (units (u nknown) date) mg/dL unknown) (unknown) (no (unknown) (unknown) BUN/Creatinine (units (unknown) date) Ratio (6-22) unknown) (unknown) (no (unknown) (unknown) BUN/Creatinine (units (unknown) date) Ratio 24.2 H unknown) (6-22) (unknown) (no (unknown) (unknown) Baso # (Auto) (units ( unknown) date) (0-100) /uL unknown) (unknown) (no (unknown) (unknown) Baso # (Auto) 0 (units (unknown) date) (0-100) /uL unknown) (unknown) (no (unknown) (unknown) Baso % (Auto) (units ( unknown) date) (0-2) % unknown) (unknown) (no (unknown) (unknown) Baso % (Auto) 0.4 (units (unknown) date) (0-2) % unknown) (unknown) (no (unknown) (unknown) Bedside Urine (units ( unknown) date) Bilirubin - unknown) Negative (unknown) (no (unknown) (unknown) Bedside Urine (units ( unknown) date) Glucose 1000 mg/dl unknown) (unknown) (no (unknown) (unknown) Bedside Urine (units ( unknown) date) Ketone +/- 5 unknown) (unknown) (no (unknown) (unknown) Bedside Urine (units ( unknown) date) Leukocytes - unknown) Negative (unknown) (no (unknown) (unknown) Bedside Urine (units ( unknown) date) Nitrite - Negative unknown) (unknown) (no (unknown) (unknown) Bedside Urine (units ( unknown) date) Occult Blood - unknown) Negative (unknown) (no (unknown) (unknown) Bedside Urine (units ( unknown) date) Protein +/- 15 unknown) (unknown) (no (unknown) (unknown) Bedside Urine (units ( unknown) date) Urobilinogen - unknown) Negative (unknown) (no (unknown) (unknown) Bedside Urine pH (units (unknown) date) 6.0 unknown) (unknown) (no (unknown) (unknown) Bipolar 1 (units (unkn own) date) disorder unknown) (unknown) (no (unknown) (unknown) Blood Pressure (units (unknown) date) 133/92 H 02 unknown) 12:20 (unknown) (no (unknown) (unknown) Blood Pressure (units (unknown) date) 133/92 H 138/88 unknown) (unknown) (no (unknown) (unknown) Blood Pressure (units (unknown) date) 152/81 H unknown) (unknown) (no (unknown) (unknown) Blood Pressure (units (unknown) date) unknown) (unknown) (no (unknown) (unknown) Bones and chest (units (unknown) date) wall:? No unknown) fractures or dislocations.? No suspicious bony (unknown) (no (unknown) (unknown) Bones:? No (units (unk nown) date) fractures or unknown) dislocations.? Pelvic ring appears intact.? No (unknown) (no (unknown) (unknown) C-Reactive (units (unk nown) date) Protein (<1.0) unknown) mg/dL (unknown) (no (unknown) (unknown) C-Reactive (units (unk nown) date) Protein 1.6 H unknown) (<1.0) mg/dL (unknown) (no (unknown) (unknown) CBC Auto Diff (units ( unknown) date) [Complete Blood unknown) Count AUTO DIFF] Stat (unknown) (no (unknown) (unknown) CMP (units (unkno wn) date) [Comprehensive unknown) Metabolic Panel] Stat (unknown) (no (unknown) (unknown) COMPARISON:? (units (u nknown) date) None. unknown) (unknown) (no (unknown) (unknown) CRP [C-Reactive (units (unknown) date) Protein Quant] unknown) Stat (unknown) (no (unknown) (unknown) Calcium (units (unkno wn) date) (8.4-10.2) mg/dL unknown) (unknown) (no (unknown) (unknown) Calcium 9.1 (units (un known) date) (8.4-10.2) mg/dL unknown) (unknown) (no (unknown) (unknown) Carbon Dioxide (units (unknown) date) (22-32) mmol/L unknown) (unknown) (no (unknown) (unknown) Carbon Dioxide 24 (units (unknown) date) (22-32) mmol/L unknown) (unknown) (no (unknown) (unknown) Cardiovascular (units (unknown) date) tachycardic rate unknown) and regular rhythm, no peripheral edema, warm (unknown) (no (unknown) (unknown) Chest x-ray: (units (u nknown) date) unknown) (unknown) (no (unknown) (unknown) Chief Complaint: (units (unknown) date) Fall onto her unknown) right side with hip pain (unknown) (no (unknown) (unknown) Chief Complaint: (units (unknown) date) Fall unknown) (unknown) (no (unknown) (unknown) Chloride (98-107) (units (unknown) date) mmol/L unknown) (unknown) (no (unknown) (unknown) Chloride 101 (units (u nknown) date) (98-107) mmol/L unknown) (unknown) (no (unknown) (unknown) Clinical (units (unkno wn) date) Impression: unknown) (unknown) (no (unknown) (unknown) Clinical decision (units (unknown) date) rules or scores unknown) evaluated: [place] and [place] head CT rule (unknown) (no (unknown) (unknown) Course of care (units (unknown) date) and unknown) re-evaluations: (unknown) (no (unknown) (unknown) Course (units (unkno wn) date) unknown) (unknown) (no (unknown) (unknown) Covid-19 + FLU (units (unknown) date) A/B + RSV - PCR unknown) Stat (unknown) (no (unknown) (unknown) Creatinine (units (unk nown) date) (0.52-1.04) mg/dL unknown) (unknown) (no (unknown) (unknown) Creatinine 0.33 L (units (unknown) date) (0.52-1.04) mg/dL unknown) (unknown) (no (unknown) (unknown) Currently she is (units (unknown) date) wearing 2 L nasal unknown) cannula but her pulse oximeter is reading (unknown) (no (unknown) (unknown) DIARRHEA, (units (unkn own) date) unknown) (unknown) (no (unknown) (unknown) : 1980 (units (unknown) date) Acct:[id number] unknown) (unknown) (no (unknown) (unknown) Date of Service: (units (unknown) date) 04/28/22 unknown) (unknown) (no (unknown) (unknown) Departure (units (unkn own) date) unknown) (unknown) (no (unknown) (unknown) Depression (units (unk nown) date) unknown) (unknown) (no (unknown) (unknown) Dictated by: (units (u nknown) date) Dolly Larsen M.D. unknown) on 04/28/2022 at 13:11 ? ? (unknown) (no (unknown) (unknown) Dictated by: (units (u nknown) date) Grant Edwards unknown) Jacob.D. on 04/28/2022 at 13:04 ? ? (unknown) (no (unknown) (unknown) Differential (units (u nknown) date) diagnoses include unknown) but are not limited to: Muscular Sprain/strain, (unknown) (no (unknown) (unknown) Diphenhydramine (units (unknown) date) HCl unknown) (Diphenhydramine 50 Mg/Ml Vial) 25 mg IV NOW ONE (unknown) (no (unknown) (unknown) Discharge Plan (units (unknown) date) unknown) (unknown) (no (unknown) (unknown) Discontinued (units (u nknown) date) Medications unknown) (unknown) (no (unknown) (unknown) Documented By: AT (units (unknown) date) unknown) (unknown) (no (unknown) (unknown) ECG Data (units (unkno wn) date) unknown) (unknown) (no (unknown) (unknown) ED Orders (units (unkn own) date) unknown) (unknown) (no (unknown) (unknown) EKG independently (units (unknown) date) reviewed by myself unknown) at [1340 reveals normal sinus rhythm at (unknown) (no (unknown) (unknown) EKG-12 Lead Stat (units (unknown) date) unknown) (unknown) (no (unknown) (unknown) ER Physician: (units ( unknown) date) Cassy Chan unknown) 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) (no (unknown) (unknown) Emergency Report (units (unknown) date) unknown) (unknown) (no (unknown) (unknown) Eos # (Auto) (units (u nknown) date) (0-450) /uL unknown) (unknown) (no (unknown) (unknown) Eos # (Auto) 200 (units (unknown) date) (0-450) /uL unknown) (unknown) (no (unknown) (unknown) Eos % (Auto) (units (u nknown) date) (2-4) % unknown) (unknown) (no (unknown) (unknown) Eos % (Auto) 2.2 (units (unknown) date) (2-4) % unknown) (unknown) (no (unknown) (unknown) Esterase (units (unkno wn) date) unknown) (unknown) (no (unknown) (unknown) Estimated GFR > (units (unknown) date) 60 (>60) mL/min unknown) (unknown) (no (unknown) (unknown) Estimated GFR (units ( unknown) date) (>60) mL/min unknown) (unknown) (no (unknown) (unknown) Exam Narrative: (units (unknown) date) unknown) (unknown) (no (unknown) (unknown) Exam (units (o wn) date) unknown) (unknown) (no (unknown) (unknown) Extremity x-ray (units (unknown) date) #2: unknown) (unknown) (no (unknown) (unknown) FINDINGS:? (units (unk nown) date) unknown) (unknown) (no (unknown) (unknown) Fosfomycin (units (unk ) date) Tromethamine unknown) (Fosfomycin 3 Gm Packet) 3 gm PO NOW ONE (unknown) (no (unknown) (unknown) GI: abdomen soft, (units (unknown) date) nontender to unknown) palpation, nondistended, without masses, rebound (unknown) (no (unknown) (unknown) General (units (unkno wn) date) unknown) (unknown) (no (unknown) (unknown) General: (units (o wn) date) cooperative, unknown) comfortable, in no acute distress, well groomed, afebrile (unknown) (no (unknown) (unknown) Globulin (units (unkno wn) date) (1.7-4.1) g/dL unknown) (unknown) (no (unknown) (unknown) Globulin 3.9 (units (u nknown) date) (1.7-4.1) g/dL unknown) (unknown) (no (unknown) (unknown) Glucose (70-100) (units (unknown) date) mg/dL unknown) (unknown) (no (unknown) (unknown) Glucose 170 H (units ( unknown) date) (70-100) mg/dL unknown) (unknown) (no (unknown) (unknown) HEADACHE (units (unkno wn) date) unknown) (unknown) (no (unknown) (unknown) HEENT: (units (o wn) date) symmetrical facial unknown) expressions, moist mucous membranes (unknown) (no (unknown) (unknown) HPI - Fall (units (unk nown) date) unknown) (unknown) (no (unknown) (unknown) HPI Narrative: (units (unknown) date) unknown) (unknown) (no (unknown) (unknown) Hct (36-46) % (units ( unknown) date) unknown) (unknown) (no (unknown) (unknown) Hct 40.1 (36-46) (units (unknown) date) % unknown) (unknown) (no (unknown) (unknown) Her pain improved (units (unknown) date) after those unknown) medications. (unknown) (no (unknown) (unknown) Hgb (12.0-16.0) (units (unknown) date) g/dL unknown) (unknown) (no (unknown) (unknown) Hgb 13.2 (units (unkno wn) date) (12.0-16.0) g/dL unknown) (unknown) (no (unknown) (unknown) History of (units (unk nown) date) Present Illness unknown) (unknown) (no (unknown) (unknown) Hydromorphone HCl (units (unknown) date) (Hydromorphone 0.5 unknown) Mg Inj) 0.5 mg IV NOW ONE (unknown) (no (unknown) (unknown) Hydromorphone HCl (units (unknown) date) (Hydromorphone 2 unknown) Mg Tablet) 2 mg PO NOW ONE (unknown) (no (unknown) (unknown) I evaluated the (units (unknown) date) patient and found unknown) her to have rectal tone. (unknown) (no (unknown) (unknown) I have reviewed (units (unknown) date) the patient's unknown) vital signs and nursing notes as well as prior (unknown) (no (unknown) (unknown) IMPRESSION:? No (units (unknown) date) trauma found, no unknown) pneumothorax identified. (unknown) (no (unknown) (unknown) IMPRESSION:? No (units (unknown) date) visualized acute unknown) fracture or dislocation. However, if clinical (unknown) (no (unknown) (unknown) INDICATIONS:? (units ( unknown) date) Fall unknown) (unknown) (no (unknown) (unknown) INFECTION (units (unkn own) date) unknown) (unknown) (no (unknown) (unknown) ITCHING (units (unkno wn) date) unknown) (unknown) (no (unknown) (unknown) Imaging Data (units (u nknown) date) unknown) (unknown) (no (unknown) (unknown) Independently (units ( unknown) date) reviewed imaging unknown) including: Right hip and right ribs x-ray (unknown) (no (unknown) (unknown) Influenza A (units (un known) date) (RT-PCR) unknown) (NEGATIVE) (unknown) (no (unknown) (unknown) Influenza A (units (un known) date) (RT-PCR) Flu a unknown) negative (NEGATIVE) (unknown) (no (unknown) (unknown) Influenza B (units (un known) date) (RT-PCR) unknown) (NEGATIVE) (unknown) (no (unknown) (unknown) Influenza B (units (un known) date) (RT-PCR) Flu b unknown) negative (NEGATIVE) (unknown) (no (unknown) (unknown) Initial Vital (units ( unknown) date) Signs unknown) (unknown) (no (unknown) (unknown) Initial Vital (units ( unknown) date) Signs: unknown) (unknown) (no (unknown) (unknown) Instructions: DI (units (unknown) date) for Urinary Tract unknown) Infection (UTI), How to Prevent Falls (unknown) (no (unknown) (unknown) Interpretation: (units (unknown) date) unknown) (unknown) (no (unknown) (unknown) [facility] (units (unknown) date) [address] [place] [address] unknown) [place] [address] (unknown) (no (unknown) (unknown) Ketorolac (units (unkn own) date) Tromethamine unknown) (Ketorolac 30 Mg/Ml Vial) 15 mg IV NOW ONE (unknown) (no (unknown) (unknown) Ketorolac (units (unkn own) date) Tromethamine unknown) (Ketorolac 30 Mg/Ml Vial) 30 mg IM NOW ONE (unknown) (no (unknown) (unknown) LOC. (units (unkno wn) date) unknown) (unknown) (no (unknown) (unknown) Lab Data (units (unkno wn) date) unknown) (unknown) (no (unknown) (unknown) Lab Results (units (un known) date) unknown) (unknown) (no (unknown) (unknown) Lab test results (units (unknown) date) independently unknown) reviewed, pertinent findings: Respiratory panel (unknown) (no (unknown) (unknown) Labs: (units (unkno wn) date) unknown) (unknown) (no (unknown) (unknown) Last Admin: (units (un known) date) 04/28/22 14:19 unknown) Dose: Not Given (unknown) (no (unknown) (unknown) Last Admin: (units (un known) date) 04/28/22 14:20 unknown) Dose: Not Given (unknown) (no (unknown) (unknown) Last Admin: (units (un known) date) 04/28/22 14:29 unknown) Dose: 12.5 mg (unknown) (no (unknown) (unknown) Last Admin: (units (un known) date) 04/28/22 14:29 unknown) Dose: 2 mg (unknown) (no (unknown) (unknown) Last Admin: (units (un known) date) 04/28/22 14:30 unknown) Dose: 750 mg (unknown) (no (unknown) (unknown) Last Admin: (units (un known) date) 04/28/22 16:05 unknown) Dose: 200 mg (unknown) (no (unknown) (unknown) Last Admin: (units (un known) date) 04/28/22 16:05 unknown) Dose: 30 mg (unknown) (no (unknown) (unknown) Lungs and (units (unkn own) date) pleura:? No unknown) pleural effusions or pneumothorax.? Lungs appear clear.? (unknown) (no (unknown) (unknown) Lymph # (Auto) (units (unknown) date) (3414-3670) /uL unknown) (unknown) (no (unknown) (unknown) Lymph # (Auto) (units (unknown) date) 2600 (0593-6464) unknown) /uL (unknown) (no (unknown) (unknown) Lymph % (Auto) (units (unknown) date) (25-40) % unknown) (unknown) (no (unknown) (unknown) Lymph % (Auto) (units (unknown) date) 39.2 (25-40) % unknown) (unknown) (no (unknown) (unknown) MCH (26-34) PG (units (unknown) date) unknown) (unknown) (no (unknown) (unknown) MCH 25.5 L (units (unk nown) date) (26-34) PG unknown) (unknown) (no (unknown) (unknown) MCHC (30-36) % (units (unknown) date) unknown) (unknown) (no (unknown) (unknown) MCHC 32.8 (30-36) (units (unknown) date) % unknown) (unknown) (no (unknown) (unknown) MCV (80-100) fL (units (unknown) date) unknown) (unknown) (no (unknown) (unknown) MCV 77.6 L (units (unk nown) date) (80-100) fL unknown) (unknown) (no (unknown) (unknown) MDM - Fall (units (unk nown) date) unknown) (unknown) (no (unknown) (unknown) MDM Narrative (units ( unknown) date) unknown) (unknown) (no (unknown) (unknown) MIPS: This (units (unk n) date) encounter doesn't unknown) have any diagnosis' associated with MIPS criteria. (unknown) (no (unknown) (unknown) MSK: moves all (units (unknown) date) extremities, unknown) neurovascularly intact, no weakness, normal tone, (unknown) (no (unknown) (unknown) Macrobid. Patient (units (unknown) date) does not have unknown) upper urinary symptoms, flank pain or other (unknown) (no (unknown) (unknown) Mediastinum:? (units ( unknown) date) Mediastinal unknown) contours appear normal.? Heart size is normal.? (unknown) (no (unknown) (unknown) Medical History (units (unknown) date) (Updated 04/28/22 unknown) @ 16:24 by Cassy Chan [facility]) (unknown) (no (unknown) (unknown) Medical decision (units (unknown) date) making narrative: unknown) (unknown) (no (unknown) (unknown) Medication (units (unk nown) date) Instructions unknown) Recorded (unknown) (no (unknown) (unknown) Met with the (units (u nknown) date) patient, ordered unknown) her pain medication per her request, she states (unknown) (no (unknown) (unknown) Methocarbamol (units ( unknown) date) (Methocarbamol 500 unknown) Mg Tablet) 750 mg PO NOW ONE (unknown) (no (unknown) (unknown) Metoclopramide (units (unknown) date) HCl unknown) (Metoclopramide 10 Mg/2 Ml Inj) 10 mg IV NOW ONE (unknown) (no (unknown) (unknown) Mode of arrival: (units (unknown) date) EMS unknown) (unknown) (no (unknown) (unknown) [place] # (Auto) (units ( unknown) date) (0-900) /uL unknown) (unknown) (no (unknown) (unknown) [place] # (Auto) 300 (units (unknown) date) (0-900) /uL unknown) (unknown) (no (unknown) (unknown) [place] % (Auto) (units ( unknown) date) (3-14) % unknown) (unknown) (no (unknown) (unknown) [place] % (Auto) 4.4 (units (unknown) date) (3-14) % unknown) (unknown) (no (unknown) (unknown) Narrative (units (unkn own) date) unknown) (unknown) (no (unknown) (unknown) Neuro: normal (units ( unknown) date) speech and unknown) cognition, A+O x3, ambulatory, clear speech (unknown) (no (unknown) (unknown) Neut # (Auto) (units ( unknown) date) (3301-8555) /uL unknown) (unknown) (no (unknown) (unknown) Neut # (Auto) (units ( unknown) date) 3600 (7302-7754) unknown) /uL (unknown) (no (unknown) (unknown) Neut % (Auto) (units ( unknown) date) (50-75) % unknown) (unknown) (no (unknown) (unknown) Neut % (Auto) (units ( unknown) date) 53.8 (50-75) % unknown) (unknown) (no (unknown) (unknown) New (units (unkno wn) date) unknown) (unknown) (no (unknown) (unknown) Night terrors, (units (unknown) date) adult unknown) (unknown) (no (unknown) (unknown) Nitrofurantoin (units (unknown) date) Macrocrystals unknown) (Nitrofurantoin Er 100 Mg Capsule) 100 mg PO NOW (unknown) (no (unknown) (unknown) No Action (units (unkn own) date) unknown) (unknown) (no (unknown) (unknown) ONE (units (unkno wn) date) unknown) (unknown) (no (unknown) (unknown) Ordered UA, (units (un known) date) patient states unknown) that she thinks she can void. (unknown) (no (unknown) (unknown) Ordered: (units (unkno wn) date) unknown) (unknown) (no (unknown) (unknown) Orders (units (unkno wn) date) unknown) (unknown) (no (unknown) (unknown) Overlying soft (units (unknown) date) tissues appear unknown) unremarkable.? (unknown) (no (unknown) (unknown) Oxygen Delivery (units (unknown) date) Method 04/28/22 unknown) 12:20 (unknown) (no (unknown) (unknown) Oxygen Delivery (units (unknown) date) Method Nasal unknown) Cannula Room Air Room Air (unknown) (no (unknown) (unknown) Oxygen Delivery (units (unknown) date) Method Room Air unknown) Nasal Cannula (unknown) (no (unknown) (unknown) Oxygen Delivery (units (unknown) date) Method Room Air unknown) Room Air (unknown) (no (unknown) (unknown) Oxygen Delivery (units (unknown) date) Method Room Air unknown) (unknown) (no (unknown) (unknown) Oxygen Delivery (units (unknown) date) Method unknown) (unknown) (no (unknown) (unknown) Oxygen Flow Rate (units (unknown) date) 1 unknown) (unknown) (no (unknown) (unknown) Oxygen Flow Rate (units (unknown) date) 2 unknown) (unknown) (no (unknown) (unknown) Oxygen Flow Rate (units (unknown) date) unknown) (unknown) (no (unknown) (unknown) PROCEDURE:? XR (units (unknown) date) HIP W PEL IF DONE unknown) RT 2V (unknown) (no (unknown) (unknown) PROCEDURE:? XR (units (unknown) date) RIBS RT MIN 3V W unknown) CXR 1V (unknown) (no (unknown) (unknown) Patient (units (unkno wn) date) Disposition: Home unknown) (unknown) (no (unknown) (unknown) Patient History (units (unknown) date) unknown) (unknown) (no (unknown) (unknown) Patient is able (units (unknown) date) to ambulate and unknown) ambulated on the monitor with a heart rate of (unknown) (no (unknown) (unknown) Patient is (units (unk nown) date) appropriate for unknown) outpatient management. (unknown) (no (unknown) (unknown) Patient's (units (unkn own) date) symptoms improved unknown) over duration of stay with above-stated therapies. (unknown) (no (unknown) (unknown) Patient's urine (units (unknown) date) microscopy shows unknown) bacteria, urine culture was ordered, no prior (unknown) (no (unknown) (unknown) Patient: (units (unkno wn) date) Leatha Cartwright unknown) MR#: [id number] (unknown) (no (unknown) (unknown) Phenazopyridine (units (unknown) date) HCl unknown) (Phenazopyridine 100 Mg Tablet) 200 mg PO NOW ONE (unknown) (no (unknown) (unknown) Please use as (units ( unknown) date) needed for nausea unknown) and vomiting (unknown) (no (unknown) (unknown) Plt Count (units (unkn own) date) (150-400) X103/uL unknown) (unknown) (no (unknown) (unknown) Plt Count 207 (units ( unknown) date) (150-400) X103/uL unknown) (unknown) (no (unknown) (unknown) Point of Care (units ( unknown) date) Testing unknown) (unknown) (no (unknown) (unknown) Potassium (units (unkn own) date) (3.4-5.1) mmol/L unknown) (unknown) (no (unknown) (unknown) Potassium 3.9 (units ( unknown) date) (3.4-5.1) mmol/L unknown) (unknown) (no (unknown) (unknown) Test (units (unknown) date) Results Negative unknown) (unknown) (no (unknown) (unknown) Prescriptions: (units (unknown) date) unknown) (unknown) (no (unknown) (unknown) Previous Rx's (units ( unknown) date) unknown) (unknown) (no (unknown) (unknown) Procalcitonin (units ( unknown) date) (<0.5) ng/mL unknown) (unknown) (no (unknown) (unknown) Procalcitonin (units ( unknown) date) 0.12 (<0.5) ng/mL unknown) (unknown) (no (unknown) (unknown) Procalcitonin (units ( unknown) date) Stat unknown) (unknown) (no (unknown) (unknown) Promethazine HCl (units (unknown) date) (Promethazine 25 unknown) Mg Tablet) 12.5 mg PO NOW ONE (unknown) (no (unknown) (unknown) Psych: mental (units ( unknown) date) status is grossly unknown) normal, congruent mood, normal affect, pleasant (unknown) (no (unknown) (unknown) Pulse Oximetry (units (unknown) date) 100 04/28/22 12:20 unknown) (unknown) (no (unknown) (unknown) Pulse Oximetry (units (unknown) date) 100 96 unknown) (unknown) (no (unknown) (unknown) Pulse Oximetry 91 (units (unknown) date) 94 unknown) (unknown) (no (unknown) (unknown) Pulse Oximetry 94 (units (unknown) date) 96 unknown) (unknown) (no (unknown) (unknown) Pulse Oximetry 96 (units (unknown) date) 93 93 unknown) (unknown) (no (unknown) (unknown) Pulse Oximetry 96 (units (unknown) date) 95 91 unknown) (unknown) (no (unknown) (unknown) Pulse Rate 111 H (units (unknown) date) 105 H unknown) (unknown) (no (unknown) (unknown) Pulse Rate 111 H (units (unknown) date) 115 H unknown) (unknown) (no (unknown) (unknown) Pulse Rate 114 H (units (unknown) date) 04/28/22 12:20 unknown) (unknown) (no (unknown) (unknown) Pulse Rate 114 H (units (unknown) date) 112 H unknown) (unknown) (no (unknown) (unknown) Pulse Rate 118 H (units (unknown) date) 122 H unknown) (unknown) (no (unknown) (unknown) Pulse Rate 123 H (units (unknown) date) 120 H 122 H unknown) (unknown) (no (unknown) (unknown) Qualifiers: (units (un known) date) unknown) (unknown) (no (unknown) (unknown) Questions are (units ( unknown) date) addressed and unknown) there is agreement with the plan and for follow-up. (unknown) (no (unknown) (unknown) RBC (4.0-5.2) (units ( unknown) date) X106/uL unknown) (unknown) (no (unknown) (unknown) RBC 5.16 (units (unkno wn) date) (4.0-5.2) X106/uL unknown) (unknown) (no (unknown) (unknown) RDW (11.6-14.8) % (units (unknown) date) unknown) (unknown) (no (unknown) (unknown) RDW 15.2 H (units (unk nown) date) (11.6-14.8) % unknown) (unknown) (no (unknown) (unknown) ROS Unobtainable: (units (unknown) date) All systems unknown) reviewed + are unremarkable except as noted in HPI (unknown) (no (unknown) (unknown) RSV (PCR) (units (unkn own) date) (Negative) unknown) (unknown) (no (unknown) (unknown) RSV (PCR) (units (unkn own) date) Negative unknown) (Negative) (unknown) (no (unknown) (unknown) Radiologist's (units ( unknown) date) Impression: unknown) (unknown) (no (unknown) (unknown) Related Data (units (u nknown) date) unknown) (unknown) (no (unknown) (unknown) Respiratory Rate (units (unknown) date) 16 04/28/22 12:20 unknown) (unknown) (no (unknown) (unknown) Respiratory Rate (units (unknown) date) 16 unknown) (unknown) (no (unknown) (unknown) Respiratory Rate (units (unknown) date) 18 unknown) (unknown) (no (unknown) (unknown) Respiratory Rate (units (unknown) date) unknown) (unknown) (no (unknown) (unknown) Respiratory: (units (u nknown) date) normal effort, unknown) able to speak in complete sentences, without (unknown) (no (unknown) (unknown) Review of Systems (units (unknown) date) unknown) (unknown) (no (unknown) (unknown) Reviewed vitals (units (unknown) date) signs and nursing unknown) notes. (unknown) (no (unknown) (unknown) Rx Instructions: (units (unknown) date) unknown) (unknown) (no (unknown) (unknown) SARS-CoV-2 (PCR) (units (unknown) date) (Negative) unknown) (unknown) (no (unknown) (unknown) SARS-CoV-2 (PCR) (units (unknown) date) Negative unknown) (Negative) (unknown) (no (unknown) (unknown) Shared decision (units (unknown) date) making: With the unknown) patient about all of her care. She states (unknown) (no (unknown) (unknown) Signed By: (units (unk nown) date) unknown) (unknown) (no (unknown) (unknown) Skin: brisk (units (un known) date) capillary refill, unknown) without pallor or erythema (unknown) (no (unknown) (unknown) Smoking Status: (units (unknown) date) Former smoker unknown) (unknown) (no (unknown) (unknown) Social History (units (unknown) date) (Reviewed 09/18/18 unknown) @ 10:12 by Roxanne Thomas DO) (unknown) (no (unknown) (unknown) Social (units (unkno wn) date) considerations unknown) that may affect disposition: none (unknown) (no (unknown) (unknown) Sodium (137-145) (units (unknown) date) mmol/L unknown) (unknown) (no (unknown) (unknown) Sodium 139 (units (unk nown) date) (137-145) mmol/L unknown) (unknown) (no (unknown) (unknown) Sodium Chloride (units (unknown) date) (Normal Saline unknown) 0.9%) 1,000 mls @ 1,000 mls/hr IV BOLUS ONE (unknown) (no (unknown) (unknown) Soft tissues:? (units (unknown) date) The visualized unknown) bowel gas pattern is normal.? No suspicious soft (unknown) (no (unknown) (unknown) Source: patient (units (unknown) date) and EMS unknown) (unknown) (no (unknown) (unknown) Stand Alone (units (un known) date) Forms: Patient unknown) Portal/API (unknown) (no (unknown) (unknown) Stated Complaint: (units (unknown) date) R Hip snap crackle unknown) pop (unknown) (no (unknown) (unknown) Stop: 04/28/22 (units (unknown) date) 13:19 unknown) (unknown) (no (unknown) (unknown) Stop: 04/28/22 (units (unknown) date) 13:22 unknown) (unknown) (no (unknown) (unknown) Stop: 04/28/22 (units (unknown) date) 14:13 unknown) (unknown) (no (unknown) (unknown) Stop: 04/28/22 (units (unknown) date) 14:20 unknown) (unknown) (no (unknown) (unknown) Stop: 04/28/22 (units (unknown) date) 15:29 unknown) (unknown) (no (unknown) (unknown) Stop: 04/28/22 (units (unknown) date) 16:23 unknown) (unknown) (no (unknown) (unknown) Stop: 04/28/22 (units (unknown) date) 16:26 unknown) (unknown) (no (unknown) (unknown) Substance Use (units ( unknown) date) Type: does not use unknown) (unknown) (no (unknown) (unknown) Sulfa (units (unkno wn) date) (Sulfonamide unknown) Allergy Severe NAUSEA, Verified 04/28/22 12:26 (unknown) (no (unknown) (unknown) Surgical changes (units (unknown) date) and devices:? unknown) None.? (unknown) (no (unknown) (unknown) TECHNIQUE:? AP (units (unknown) date) pelvis with unknown) lateral view(s) of the right hip(s).? (unknown) (no (unknown) (unknown) TECHNIQUE:? Two (units (unknown) date) views of the right unknown) ribs were acquired, along with a single view (unknown) (no (unknown) (unknown) TING (units (unkno wn) date) unknown) (unknown) (no (unknown) (unknown) Temperature 97.9 (units (unknown) date) F 04/28/22 12:20 unknown) (unknown) (no (unknown) (unknown) Temperature 97.9 (units (unknown) date) F unknown) (unknown) (no (unknown) (unknown) Temperature (units (un known) date) unknown) (unknown) (no (unknown) (unknown) This is a (units (unkn own) date) 41-year-old female unknown) with history of bipolar 1 who presents to the (unknown) (no (unknown) (unknown) Time Seen by (units (u nknown) date) Provider: 04/28/22 unknown) 12:55 (unknown) (no (unknown) (unknown) Total Bilirubin (units (unknown) date) (0.2-1.3) mg/dL unknown) (unknown) (no (unknown) (unknown) Total Bilirubin (units (unknown) date) 0.6 (0.2-1.3) unknown) mg/dL (unknown) (no (unknown) (unknown) Total Protein (units ( unknown) date) (6.3-8.2) g/dL unknown) (unknown) (no (unknown) (unknown) Total Protein 8.5 (units (unknown) date) H (6.3-8.2) g/dL unknown) (unknown) (no (unknown) (unknown) UTI (urinary (units (u nknown) date) tract infection) unknown) (unknown) (no (unknown) (unknown) Ur Culture (units (unk nown) date) Indicated? Cult unknown) not indicated (unknown) (no (unknown) (unknown) Ur Culture (units (unk nown) date) Indicated? unknown) (unknown) (no (unknown) (unknown) Ur Squamous Epith (units (unknown) date) Cells (0-5/HPF) unknown) (unknown) (no (unknown) (unknown) Ur Squamous Epith (units (unknown) date) Cells 1-5 /hpf unknown) (0-5/HPF) (unknown) (no (unknown) (unknown) Urinary tract (units ( unknown) date) infection type: unknown) acute cystitis Hematuria presence: without (unknown) (no (unknown) (unknown) Urine Bacteria (units (unknown) date) (None) unknown) (unknown) (no (unknown) (unknown) Urine Bacteria (units (unknown) date) Many (>30) H unknown) (None) (unknown) (no (unknown) (unknown) Urine Culture (units ( unknown) date) Stat unknown) (unknown) (no (unknown) (unknown) Urine Dip (units (unkn own) date) unknown) (unknown) (no (unknown) (unknown) Urine Microscopic (units (unknown) date) Stat unknown) (unknown) (no (unknown) (unknown) Urine RBC (units (unkn own) date) (0-5/HPF) unknown) (unknown) (no (unknown) (unknown) Urine RBC None (units (unknown) date) seen (0-5/HPF) unknown) (unknown) (no (unknown) (unknown) Urine Specific (units (unknown) date) [place] 1.025 unknown) (unknown) (no (unknown) (unknown) Urine WBC (units (unkn own) date) (0-5/HPF) unknown) (unknown) (no (unknown) (unknown) Urine WBC 0-1/hpf (units (unknown) date) (0-5/HPF) unknown) (unknown) (no (unknown) (unknown) Vital Signs - 8 (units (unknown) date) hr unknown) (unknown) (no (unknown) (unknown) Vital Signs (units (un known) date) unknown) (unknown) (no (unknown) (unknown) Vital signs: (units (u nknown) date) unknown) (unknown) (no (unknown) (unknown) WBC (4.5-11.0) (units (unknown) date) X103/uL unknown) (unknown) (no (unknown) (unknown) WBC 6.7 (units (unkno wn) date) (4.5-11.0) X103/uL unknown) (unknown) (no (unknown) (unknown) XR hip w pel if (units (unknown) date) done RT 2V Stat unknown) (unknown) (no (unknown) (unknown) XR ribs RT min 3V (units (unknown) date) w CXR1V Stat unknown) (unknown) (no (unknown) (unknown) Zofran. She is (units (unknown) date) slurring her words unknown) mildly but is sitting upright, without (unknown) (no (unknown) (unknown) [ ] New (units (unkno wn) date) medication written unknown) as a paper prescription (unknown) (no (unknown) (unknown) [ ] No new (units (unk nown) date) medications given unknown) (unknown) (no (unknown) (unknown) [117] bpm with (units (unknown) date) regular axis and unknown) prolonged QT 450 milliseconds without other (unknown) (no (unknown) (unknown) [Embedded Image (units (unknown) date) Not Available] unknown) (unknown) (no (unknown) (unknown) [SULFA (units (unkno wn) date) (SULFONAMIDE unknown) (unknown) (no (unknown) (unknown) [x ] New (units (unkno wn) date) medication unknown) prescriptions sent to your pharmacy: [ [facility] (unknown) (no (unknown) (unknown) alcohol intake (units (unknown) date) frequency: unknown) holidays/special occasions only (unknown) (no (unknown) (unknown) alert. (units (unkno wn) date) unknown) (unknown) (no (unknown) (unknown) amoxicillin (units (un known) date) [AMOXICILLIN] unknown) AdvReac Intermediate YEAST Verified 04/28/22 12:26 (unknown) (no (unknown) (unknown) and below (units (unkn own) date) unknown) (unknown) (no (unknown) (unknown) and cooperative (units (unknown) date) unknown) (unknown) (no (unknown) (unknown) and/or pain (units (un known) date) persist, short unknown) interval imaging followup in 7-10 days is (unknown) (no (unknown) (unknown) antibiotic is not (units (unknown) date) appropriate for unknown) your urine infection. Thank you for waiting (unknown) (no (unknown) (unknown) antibiotics, she (units (unknown) date) takes Dilaudid for unknown) pain at home, also uses Phenergan and states (unknown) (no (unknown) (unknown) appointment. Let (units (unknown) date) them know you were unknown) seen in the Emergency Department and that we (unknown) (no (unknown) (unknown) asked that you be (units (unknown) date) seen for unknown) follow-up. We will electronically transmit a record (unknown) (no (unknown) (unknown) breathing, chest (units (unknown) date) pain, weakness, unknown) incontinence, abdominal pain, flank pain or (unknown) (no (unknown) (unknown) calcifications.? (units (unknown) date) unknown) (unknown) (no (unknown) (unknown) capsule (units (unkno wn) date) (Macrobid) unknown) (unknown) (no (unknown) (unknown) cephalexin (units (unk nown) date) [CEPHALEXIN] unknown) Allergy Unknown NAUSEA/VOMI Verified 04/28/22 12:26 (unknown) (no (unknown) (unknown) changes. (units (unkno wn) date) unknown) (unknown) (no (unknown) (unknown) chest.? (units (unkno wn) date) unknown) (unknown) (no (unknown) (unknown) codeine [CODEINE] (units (unknown) date) Allergy Mild unknown) NAUSEA, Verified 04/28/22 12:26 (unknown) (no (unknown) (unknown) comfortable, is (units (unknown) date) talkative, unknown) received 200 mcgs of fentanyl EN route. Patient (unknown) (no (unknown) (unknown) concern (units (unkno wn) date) unknown) (unknown) (no (unknown) (unknown) concerning (units (unk n) date) symptoms, such as unknown) [fever greater than 101F, chills, worsening pain, (unknown) (no (unknown) (unknown) denies any in her (units (unknown) date) head, did not have unknown) any emesis, does not feel neck pain, denies (unknown) (no (unknown) (unknown) department, (units (un known) date) please use your unknown) home pain medications to treat her pain, I have (unknown) (no (unknown) (unknown) ecchymosis or (units ( unknown) date) obvious deformity, unknown) no pain to right hip with axial load from foot (unknown) (no (unknown) (unknown) electrolyte (units (un known) date) abnormalities of unknown) concern, mild increase of alk-phos to 143, AST of (unknown) (no (unknown) (unknown) emergency (units (unkn own) date) department via EMS unknown) after a mechanical fall where she was walking (unknown) (no (unknown) (unknown) establish care (units (unknown) date) with one of the unknown) [facility] primary care providers. (unknown) (no (unknown) (unknown) extremities (units (un known) date) unknown) (unknown) (no (unknown) (unknown) given you some (units ( unknown) date) nausea medication unknown) to help you through this, please follow-up with (unknown) (no (unknown) (unknown) hematuria (units (unkn own) date) Qualified Code(s): unknown) N30.00 - Acute cystitis without hematuria (unknown) (no (unknown) (unknown) hip fracture, (units ( unknown) date) acute cystitis, unknown) pyelonephritis, PID, nephrolithiasis, obstructive (unknown) (no (unknown) (unknown) hip. Patient has (units (unknown) date) a history of unknown) bipolar disorder, has had emotional episodes in (unknown) (no (unknown) (unknown) history kidney (units (unknown) date) stone and unknown) hematuria in the past and endorses that she feels like (unknown) (no (unknown) (unknown) history of (units (unk nown) date) bladder unknown) stimulator, denies history of low back pain, has documented (unknown) (no (unknown) (unknown) hydrocodone 5 (units ( unknown) date) mg-acetaminophen unknown) 325 1 tab PO Q6H PRN pain #10 tabs 09/18/18 (unknown) (no (unknown) (unknown) hydrocodone-aceta (units (unknown) date) minophen [[place]] unknown) 5-325 mg tablet (unknown) (no (unknown) (unknown) hydromorphone 2 (units (unknown) date) mg tablet 2 mg PO unknown) Q6HP PRN #8 tabs 01/11/16 (unknown) (no (unknown) (unknown) hydromorphone (units ( unknown) date) [Dilaudid] 2 MG unknown) tablet (unknown) (no (unknown) (unknown) hyperventilating, (units (unknown) date) her heart rate unknown) goes up, she complains never having (unknown) (no (unknown) (unknown) hypoxia, wearing (units (unknown) date) 2 L nasal cannula unknown) as she became sedated in the ambulance EN (unknown) (no (unknown) (unknown) incontinence (units (u nknown) date) before. She says unknown) that she did not feel it coming on. She states (unknown) (no (unknown) (unknown) injury without (units (unknown) date) fracture, or other unknown) abnormality visualized on x-ray to your ribs (unknown) (no (unknown) (unknown) interval changes. (units (unknown) date) No STEMI, ST unknown) segment changes, arrhythmia, or acute ischemic (unknown) (no (unknown) (unknown) is negative for (units (unknown) date) tested viruses, no unknown) leukocytosis or anemia, no left shift, no (unknown) (no (unknown) (unknown) ketorolac 10 MG (units (unknown) date) tablet unknown) (unknown) (no (unknown) (unknown) ketorolac 10 mg (units (unknown) date) tablet 10 mg PO unknown) Q6HP PRN #10 tabs 01/11/16 (unknown) (no (unknown) (unknown) lesions.? (units (unkn own) date) unknown) (unknown) (no (unknown) (unknown) levofloxacin (units (u nknown) date) [LEVOFLOXACIN] unknown) Allergy Unknown N/V, Verified 04/28/22 12:26 (unknown) (no (unknown) (unknown) levofloxacin, and (units (unknown) date) amoxicillin, will unknown) treat with fosfomycin x1 and sent home with (unknown) (no (unknown) (unknown) mg tablet ([place]) (units (unknown) date) unknown) (unknown) (no (unknown) (unknown) monohydrate/macro (units (unknown) date) crystals 100 mg unknown) (unknown) (no (unknown) (unknown) months. She (units (un known) date) denies any unknown) surgeries over lower extremities in the past. She has (unknown) (no (unknown) (unknown) motion of her (units ( unknown) date) right knee and unknown) right foot with good perfusion, palpable pedal (unknown) (no (unknown) (unknown) must administer (units (unknown) date) with a meal/food unknown) (unknown) (no (unknown) (unknown) nitrofurantoin (units (unknown) date) 100 mg PO BID 5 unknown) days #10 caps 04/28/22 (unknown) (no (unknown) (unknown) nitrofurantoin (units (unknown) date) monohyd/m-cryst unknown) [Macrobid] 100 mg capsule (unknown) (no (unknown) (unknown) nontender over (units (unknown) date) spine, patient unknown) complains of pain to the right iliac crest with (unknown) (no (unknown) (unknown) not working. (units (u nknown) date) Patient tells me unknown) that she was incontinent. She starts (unknown) (no (unknown) (unknown) occult injury (units ( unknown) date) cannot be unknown) definitively excluded. (unknown) (no (unknown) (unknown) of today's note (units (unknown) date) if your PCP is in unknown) our system (unknown) (no (unknown) (unknown) or pelvis. Your (units (unknown) date) lab work overall unknown) is unremarkable which is a great thing, please (unknown) (no (unknown) (unknown) other pain. She (units (unknown) date) denies any unknown) sensation changes, states that after the fall she (unknown) (no (unknown) (unknown) outside onto her (units (unknown) date) right side and now unknown) complains of right-sided hip pain. She (unknown) (no (unknown) (unknown) pain. (units (unkno wn) date) unknown) (unknown) (no (unknown) (unknown) palpation, full (units (unknown) date) range of motion of unknown) right hip is without weakness. Full range of (unknown) (no (unknown) (unknown) persistent (units (unk nown) date) vomiting or other unknown) bothersome symptoms]. (unknown) (no (unknown) (unknown) phenazopyridine (units (unknown) date) 200 mg tablet 200 unknown) mg PO QPC PRN pain 6 doses #7 04/28/22 (unknown) (no (unknown) (unknown) phenazopyridine (units (unknown) date) [Pyridium] 200 mg unknown) tablet (unknown) (no (unknown) (unknown) prednisone 20 MG (units (unknown) date) tablet unknown) (unknown) (no (unknown) (unknown) prednisone 20 mg (units (unknown) date) tablet 20 mg PO unknown) QAM #3 tabs 01/11/16 (unknown) (no (unknown) (unknown) promethazine 12.5 (units (unknown) date) mg tablet 12.5 mg unknown) PO BID #10 tabs 04/28/22 (unknown) (no (unknown) (unknown) promethazine 12.5 (units (unknown) date) mg tablet unknown) (unknown) (no (unknown) (unknown) promethazine 25 (units (unknown) date) MG tablet unknown) (unknown) (no (unknown) (unknown) promethazine 25 (units (unknown) date) mg tablet 25 mg PO unknown) Q6HP PRN #10 tabs 05/12/16 (unknown) (no (unknown) (unknown) promethazine 25 (units (unknown) date) mg tablet 25 mg PO unknown) Q6HP PRN #10 tabs 01/11/16 (unknown) (no (unknown) (unknown) pulses. Brisk cap (units (unknown) date) refill in her unknown) toes. She denies any sensation deficit. No (unknown) (no (unknown) (unknown) received a fluid (units (unknown) date) bolus, is starting unknown) to tolerate p.o., is without severe pain at (unknown) (no (unknown) (unknown) recommended, as (units (unknown) date) unknown) (unknown) (no (unknown) (unknown) records if (units (unk nown) date) available. unknown) (unknown) (no (unknown) (unknown) refuses the (units (un known) date) testing as she unknown) denies having any symptoms of vaginitis or pelvic (unknown) (no (unknown) (unknown) route after (units (un known) date) receiving unknown) fentanyl. No concerning findings on exam of her right (unknown) (no (unknown) (unknown) she has a urinary (units (unknown) date) tract infection. unknown) She states that she is allergic to multiple (unknown) (no (unknown) (unknown) she is nauseated (units (unknown) date) but has not had unknown) vomiting and requests something stronger than (unknown) (no (unknown) (unknown) states that she (units (unknown) date) is had a history unknown) hip pain with ambulation for the last 2-3 (unknown) (no (unknown) (unknown) stay hydrated, (units (unknown) date) tomorrow start unknown) taking Macrobid for your bladder infection. If (unknown) (no (unknown) (unknown) suspicious bony (units (unknown) date) unknown) (unknown) (no (unknown) (unknown) symptoms at this (units (unknown) date) time. She is unknown) afebrile, her tachycardia has improved, she is (unknown) (no (unknown) (unknown) tenderness or (units ( unknown) date) exquisite unknown) tenderness with exam. No CVA tenderness bilaterally (unknown) (no (unknown) (unknown) that Zofran is (units (unknown) date) not adequate. She unknown) states that she is had a low-grade fever for (unknown) (no (unknown) (unknown) that her pain is (units (unknown) date) improved after unknown) medications (unknown) (no (unknown) (unknown) that she still (units (unknown) date) needs to void, the unknown) nurse was called. (unknown) (no (unknown) (unknown) the emergency (units ( unknown) date) department and unknown) states that she is extremely anxious and is unable (unknown) (no (unknown) (unknown) the last 2 days (units (unknown) date) but denies unknown) diaphoresis, shortness of breath, difficulty (unknown) (no (unknown) (unknown) the urine was (units ( unknown) date) from catheter so unknown) she should not need to complete a wet mount and (unknown) (no (unknown) (unknown) this time, using (units (unknown) date) her phone, unknown) talkative, denies any vaginal discharge, states that (unknown) (no (unknown) (unknown) tissue (units (unkno wn) date) unknown) (unknown) (no (unknown) (unknown) to communicate or (units (unknown) date) do anything at unknown) those times. (unknown) (no (unknown) (unknown) to feel much (units (u nknown) date) better at 16:10. unknown) (unknown) (no (unknown) (unknown) today for all of (units (unknown) date) the tests come unknown) back, I hope you feel better soon. (unknown) (no (unknown) (unknown) urine cultures on (units (unknown) date) record. Patient unknown) has an allergy to sulfa, cephalexin, (unknown) (no (unknown) (unknown) uropathy, (units (unkn own) date) unknown) (unknown) (no (unknown) (unknown) was able to get (units (unknown) date) up with the help unknown) of 2 people but states she was unable to bear (unknown) (no (unknown) (unknown) weight on this (units (unknown) date) side. Patient is unknown) sitting up on the stretcher, appears (unknown) (no (unknown) (unknown) wheezing, (units (unkn own) date) stridor, or unknown) abnormal breath sounds. No retractions or tachypnea. (unknown) (no (unknown) (unknown) while she was (units (u nknown) date) lying down, she unknown) was started on this but now is much more awake and (unknown) (no (unknown) (unknown) without (units (unkno wn) date) indication for CT unknown) imaging of C-spine or head (unknown) (no (unknown) (unknown) without (units (unkno wn) date) pneumothorax, unknown) acute fracture or other acute abnormality. (unknown) (no (unknown) (unknown) you have (units (unkno wn) date) worsening of her unknown) symptoms, please come back to the emergency (unknown) (no (unknown) (unknown) your primary care (units (unknown) date) provider for a unknown) test of cure. We will call you if the Result panel 92 (unknown) (no (unknown) (unknown) (no value) (units (unk nown) date) unknown) (unknown) (no (unknown) (unknown) <Electronically (units (unknown) date) signed by Cassy palomino) [employer]> (unknown) (no (unknown) (unknown) (Dilaudid) (units (unk nown) date) unknown) (unknown) (no (unknown) (unknown) (Pyridium) tabs (units (unknown) date) unknown) (unknown) (no (unknown) (unknown) *If you do not (units (unknown) date) have a primary unknown) care provider please contact [phone] to (unknown) (no (unknown) (unknown) *Please continue (units (unknown) date) to take your unknown) regular medications as directed. (unknown) (no (unknown) (unknown) *Please follow up (units (unknown) date) with your primary unknown) care provider in 2-3 days, call for an (unknown) (no (unknown) (unknown) *Return to (units (unk nown) date) Emergency unknown) Department if you should have any new, worsening, or (unknown) (no (unknown) (unknown) *What to do: (units (u nknown) date) unknown) (unknown) (no (unknown) (unknown) *You have been (units (unknown) date) diagnosed with unknown) urinary tract infection, fall with a right hip (unknown) (no (unknown) (unknown) [id number] (units (unkno wn) date) unknown) (unknown) (no (unknown) (unknown) 04/28/22 04/28/22 (units (unknown) date) 04/28/22 unknown) Range/Units (unknown) (no (unknown) (unknown) 04/28/22 12:29 (units (unknown) date) unknown) (unknown) (no (unknown) (unknown) 04/28/22 12:30 (units (unknown) date) unknown) (unknown) (no (unknown) (unknown) 04/28/22 13:37 (units (unknown) date) unknown) (unknown) (no (unknown) (unknown) 04/28/22 13:41 (units (unknown) date) unknown) (unknown) (no (unknown) (unknown) 04/28/22 14:05 (units (unknown) date) unknown) (unknown) (no (unknown) (unknown) 04/28/22 15:19 (units (unknown) date) unknown) (unknown) (no (unknown) (unknown) 04/28/22 1710 (units ( unknown) date) unknown) (unknown) (no (unknown) (unknown) 04/28/22 (units (unkno wn) date) Range/Units unknown) (unknown) (no (unknown) (unknown) 04/28/22 (units (unkno wn) date) unknown) (unknown) (no (unknown) (unknown) 1 tab PO Q6H PRN (units (unknown) date) (Reason: pain) unknown) Qty: 10 0RF (unknown) (no (unknown) (unknown) 1 tab PO Q8H PRN (units (unknown) date) (Reason: pain) unknown) Qty: 10 0RF (unknown) (no (unknown) (unknown) 10 mg PO Q6HP (units ( unknown) date) PRNQty: 10 0RF unknown) (unknown) (no (unknown) (unknown) 100 mg PO BID 5 (units (unknown) date) Days Qty: 10 0RF unknown) (unknown) (no (unknown) (unknown) 105, she received (units (unknown) date) her ketorolac at unknown) 16:00 and states that she is already starting (unknown) (no (unknown) (unknown) 12.5 mg PO BID (units (unknown) date) Qty: 10 0RF unknown) (unknown) (no (unknown) (unknown) 129 and ALT of 69 (units (unknown) date) but no tenderness unknown) over her right upper quadrant to palpation. (unknown) (no (unknown) (unknown) 12:20 04/28/22 (units (unknown) date) unknown) (unknown) (no (unknown) (unknown) 12:25 04/28/22 (units (unknown) date) unknown) (unknown) (no (unknown) (unknown) 12:30 04/28/22 (units (unknown) date) unknown) (unknown) (no (unknown) (unknown) 12:30 (units (unkno wn) date) unknown) (unknown) (no (unknown) (unknown) 12:43 04/28/22 (units (unknown) date) unknown) (unknown) (no (unknown) (unknown) 13:00 (units (unkno wn) date) unknown) (unknown) (no (unknown) (unknown) 13:30 04/28/22 (units (unknown) date) unknown) (unknown) (no (unknown) (unknown) 13:41 14:05 14:05 (units (unknown) date) unknown) (unknown) (no (unknown) (unknown) 13:45 04/28/22 (units (unknown) date) unknown) (unknown) (no (unknown) (unknown) 13:45 (units (unkno wn) date) unknown) (unknown) (no (unknown) (unknown) 1415 went to (units (un known) date) recheck patient's unknown) pain, and other her IV has been removed due to it (unknown) (no (unknown) (unknown) 14:00 04/28/22 (units (unknown) date) unknown) (unknown) (no (unknown) (unknown) 14:30 04/28/22 (units (unknown) date) unknown) (unknown) (no (unknown) (unknown) 15:00 (units (unkno wn) date) unknown) (unknown) (no (unknown) (unknown) 15:19 (units (unkno wn) date) unknown) (unknown) (no (unknown) (unknown) 15:30 04/28/22 (units (unknown) date) unknown) (unknown) (no (unknown) (unknown) 16:00 (units (unkno wn) date) unknown) (unknown) (no (unknown) (unknown) 16:01 04/28/22 (units (unknown) date) unknown) (unknown) (no (unknown) (unknown) 16:30 04/28/22 (units (unknown) date) unknown) (unknown) (no (unknown) (unknown) 16:37 04/28/22 (units (unknown) date) unknown) (unknown) (no (unknown) (unknown) 16:37 (units (unkno wn) date) unknown) (unknown) (no (unknown) (unknown) 2 mg PO Q6HP (units (u nknown) date) PRNQty: 8 0RF unknown) (unknown) (no (unknown) (unknown) 20 mg PO QAM Qty: (units (unknown) date) 3 0RF unknown) (unknown) (no (unknown) (unknown) 200 mg PO QPC PRN (units (unknown) date) (Reason: pain) unknown) Qty: 7 0RF (unknown) (no (unknown) (unknown) 25 mg PO Q6HP (units ( unknown) date) PRNQty: 10 0RF unknown) (unknown) (no (unknown) (unknown) 98%. Patient (units (u nknown) date) received pain unknown) medication in route and caused her O2 sats drop (unknown) (no (unknown) (unknown) ? (units (unkno wn) date) unknown) (unknown) (no (unknown) (unknown) ALT (<35) IU/L (units (unknown) date) unknown) (unknown) (no (unknown) (unknown) ALT 69 H (<35) (units (unknown) date) IU/L unknown) (unknown) (no (unknown) (unknown) ANTIBIOTICS)] (units ( unknown) date) unknown) (unknown) (no (unknown) (unknown) AST (14-36) IU/L (units (unknown) date) unknown) (unknown) (no (unknown) (unknown) AST 129 H (14-36) (units (unknown) date) IU/L unknown) (unknown) (no (unknown) (unknown) Activity (units (unkno wn) date) Restrictions/Addit unknown) ional Instructions: (unknown) (no (unknown) (unknown) Acute dehydration (units (unknown) date) unknown) (unknown) (no (unknown) (unknown) Age/Sex: 41 / F (units (unknown) date) unknown) (unknown) (no (unknown) (unknown) Albumin (3.5-5.0) (units (unknown) date) g/dL unknown) (unknown) (no (unknown) (unknown) Albumin 4.6 (units (un known) date) (3.5-5.0) g/dL unknown) (unknown) (no (unknown) (unknown) Albumin/Globulin (units (unknown) date) Ratio (1.0-2.8) unknown) (unknown) (no (unknown) (unknown) Albumin/Globulin (units (unknown) date) Ratio 1.2 unknown) (1.0-2.8) (unknown) (no (unknown) (unknown) Alkaline (units (unkno wn) date) Phosphatase unknown) (38-126) U/L (unknown) (no (unknown) (unknown) Alkaline (units (unkno wn) date) Phosphatase 143 H unknown) (38-126) U/L (unknown) (no (unknown) (unknown) Allergies (units (unkn own) date) unknown) (unknown) (no (unknown) (unknown) Allergy/AdvReac (units (unknown) date) Type Severity unknown) Reaction Status Date / Time (unknown) (no (unknown) (unknown) Mather] (units (unk nown) date) unknown) (unknown) (no (unknown) (unknown) Antibiotics) (units (u nknown) date) ITCHING unknown) (unknown) (no (unknown) (unknown) Approved by: (units (u nknown) date) Dolly Larsen M.D. unknown) on 04/28/2022 at 13:11 ? (unknown) (no (unknown) (unknown) Approved by: (units (u nknown) date) doc Vitale M.D. on 04/28/2022 at 13:06 ? (unknown) (no (unknown) (unknown) BUN (7-17) mg/dL (units (unknown) date) unknown) (unknown) (no (unknown) (unknown) BUN 8 (7-17) (units (u nknown) date) mg/dL unknown) (unknown) (no (unknown) (unknown) BUN/Creatinine (units (unknown) date) Ratio (6-22) unknown) (unknown) (no (unknown) (unknown) BUN/Creatinine (units (unknown) date) Ratio 24.2 H unknown) (6-22) (unknown) (no (unknown) (unknown) Baso # (Auto) (units ( unknown) date) (0-100) /uL unknown) (unknown) (no (unknown) (unknown) Baso # (Auto) 0 (units (unknown) date) (0-100) /uL unknown) (unknown) (no (unknown) (unknown) Baso % (Auto) (units ( unknown) date) (0-2) % unknown) (unknown) (no (unknown) (unknown) Baso % (Auto) 0.4 (units (unknown) date) (0-2) % unknown) (unknown) (no (unknown) (unknown) Bedside Urine (units ( unknown) date) Bilirubin - unknown) Negative (unknown) (no (unknown) (unknown) Bedside Urine (units ( unknown) date) Glucose 1000 mg/dl unknown) (unknown) (no (unknown) (unknown) Bedside Urine (units ( unknown) date) Ketone +/- 5 unknown) (unknown) (no (unknown) (unknown) Bedside Urine (units ( unknown) date) Leukocytes - unknown) Negative (unknown) (no (unknown) (unknown) Bedside Urine (units ( unknown) date) Nitrite - Negative unknown) (unknown) (no (unknown) (unknown) Bedside Urine (units ( unknown) date) Occult Blood - unknown) Negative (unknown) (no (unknown) (unknown) Bedside Urine (units ( unknown) date) Protein +/- 15 unknown) (unknown) (no (unknown) (unknown) Bedside Urine (units ( unknown) date) Urobilinogen - unknown) Negative (unknown) (no (unknown) (unknown) Bedside Urine pH (units (unknown) date) 6.0 unknown) (unknown) (no (unknown) (unknown) Bipolar 1 (units (unkn own) date) disorder unknown) (unknown) (no (unknown) (unknown) Blood Pressure (units (unknown) date) 127/74 unknown) (unknown) (no (unknown) (unknown) Blood Pressure (units (unknown) date) 133/92 H 04/28/22 unknown) 12:20 (unknown) (no (unknown) (unknown) Blood Pressure (units (unknown) date) 133/92 H 138/88 unknown) (unknown) (no (unknown) (unknown) Blood Pressure (units (unknown) date) 152/81 H unknown) (unknown) (no (unknown) (unknown) Blood Pressure (units (unknown) date) unknown) (unknown) (no (unknown) (unknown) Bones and chest (units (unknown) date) wall:? No unknown) fractures or dislocations.? No suspicious bony (unknown) (no (unknown) (unknown) Bones:? No (units (unk nown) date) fractures or unknown) dislocations.? Pelvic ring appears intact.? No (unknown) (no (unknown) (unknown) C-Reactive (units (unk nown) date) Protein (<1.0) unknown) mg/dL (unknown) (no (unknown) (unknown) C-Reactive (units (unk nown) date) Protein 1.6 H unknown) (<1.0) mg/dL (unknown) (no (unknown) (unknown) CBC Auto Diff (units ( unknown) date) [Complete Blood unknown) Count AUTO DIFF] Stat (unknown) (no (unknown) (unknown) CMP (units (unkno wn) date) [Comprehensive unknown) Metabolic Panel] Stat (unknown) (no (unknown) (unknown) COMPARISON:? (units (u nknown) date) None. unknown) (unknown) (no (unknown) (unknown) CRP [C-Reactive (units (unknown) date) Protein Quant] unknown) Stat (unknown) (no (unknown) (unknown) Calcium (units (unkno wn) date) (8.4-10.2) mg/dL unknown) (unknown) (no (unknown) (unknown) Calcium 9.1 (units (un known) date) (8.4-10.2) mg/dL unknown) (unknown) (no (unknown) (unknown) Carbon Dioxide (units (unknown) date) (22-32) mmol/L unknown) (unknown) (no (unknown) (unknown) Carbon Dioxide 24 (units (unknown) date) (22-32) mmol/L unknown) (unknown) (no (unknown) (unknown) Cardiovascular (units (unknown) date) tachycardic rate unknown) and regular rhythm, no peripheral edema, warm (unknown) (no (unknown) (unknown) Chest x-ray: (units (u nknown) date) unknown) (unknown) (no (unknown) (unknown) Chief Complaint: (units (unknown) date) Fall onto her unknown) right side with hip pain (unknown) (no (unknown) (unknown) Chief Complaint: (units (unknown) date) Fall unknown) (unknown) (no (unknown) (unknown) Chloride (98-107) (units (unknown) date) mmol/L unknown) (unknown) (no (unknown) (unknown) Chloride 101 (units (u nknown) date) (98-107) mmol/L unknown) (unknown) (no (unknown) (unknown) Clinical (units (unkno wn) date) Impression: unknown) (unknown) (no (unknown) (unknown) Clinical decision (units (unknown) date) rules or scores unknown) evaluated: [place] and [place] head CT rule (unknown) (no (unknown) (unknown) Course of care (units (unknown) date) and unknown) re-evaluations: (unknown) (no (unknown) (unknown) Course (units (unkno wn) date) unknown) (unknown) (no (unknown) (unknown) Covid-19 + FLU (units (unknown) date) A/B + RSV - PCR unknown) Stat (unknown) (no (unknown) (unknown) Creatinine (units (unk nown) date) (0.52-1.04) mg/dL unknown) (unknown) (no (unknown) (unknown) Creatinine 0.33 L (units (unknown) date) (0.52-1.04) mg/dL unknown) (unknown) (no (unknown) (unknown) Currently she is (units (unknown) date) wearing 2 L nasal unknown) cannula but her pulse oximeter is reading (unknown) (no (unknown) (unknown) DIARRHEA, (units (unkn own) date) unknown) (unknown) (no (unknown) (unknown) : 1980 (units (unknown) date) Acct:[id number] unknown) (unknown) (no (unknown) (unknown) Date of Service: (units (unknown) date) 04/28/22 unknown) (unknown) (no (unknown) (unknown) Departure (units (unkn own) date) unknown) (unknown) (no (unknown) (unknown) Depression (units (unk nown) date) unknown) (unknown) (no (unknown) (unknown) Dictated by: (units (u nknown) date) Dolly Larsen M.D. unknown) on 04/28/2022 at 13:11 ? ? (unknown) (no (unknown) (unknown) Dictated by: (units (u nknown) date) doc Vitale M.D. on 04/28/2022 at 13:04 ? ? (unknown) (no (unknown) (unknown) Differential (units (u nknown) date) diagnoses include unknown) but are not limited to: Muscular Sprain/strain, (unknown) (no (unknown) (unknown) Dilaudid at home (units (unknown) date) for pain although unknown) it appeared as if she did as her medications (unknown) (no (unknown) (unknown) Diphenhydramine (units (unknown) date) HCl unknown) (Diphenhydramine 50 Mg/Ml Vial) 25 mg IV NOW ONE (unknown) (no (unknown) (unknown) Discharge Plan (units (unknown) date) unknown) (unknown) (no (unknown) (unknown) Discontinued (units (u nknown) date) Medications unknown) (unknown) (no (unknown) (unknown) Documented By: AT (units (unknown) date) unknown) (unknown) (no (unknown) (unknown) ECG Data (units (unkno wn) date) unknown) (unknown) (no (unknown) (unknown) ED Orders (units (unkn own) date) unknown) (unknown) (no (unknown) (unknown) EKG independently (units (unknown) date) reviewed by myself unknown) at [1340 reveals normal sinus rhythm at (unknown) (no (unknown) (unknown) EKG-12 Lead Stat (units (unknown) date) unknown) (unknown) (no (unknown) (unknown) ER Physician: (units ( unknown) date) Cassy Chan unknown) 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) (no (unknown) (unknown) Emergency Report (units (unknown) date) unknown) (unknown) (no (unknown) (unknown) Eos # (Auto) (units (u nknown) date) (0-450) /uL unknown) (unknown) (no (unknown) (unknown) Eos # (Auto) 200 (units (unknown) date) (0-450) /uL unknown) (unknown) (no (unknown) (unknown) Eos % (Auto) (units (u nknown) date) (2-4) % unknown) (unknown) (no (unknown) (unknown) Eos % (Auto) 2.2 (units (unknown) date) (2-4) % unknown) (unknown) (no (unknown) (unknown) Esterase (units (unkno wn) date) unknown) (unknown) (no (unknown) (unknown) Estimated GFR > (units (unknown) date) 60 (>60) mL/min unknown) (unknown) (no (unknown) (unknown) Estimated GFR (units ( unknown) date) (>60) mL/min unknown) (unknown) (no (unknown) (unknown) Exam Narrative: (units (unknown) date) unknown) (unknown) (no (unknown) (unknown) Exam (units (unkno wn) date) unknown) (unknown) (no (unknown) (unknown) Extremity x-ray (units (unknown) date) #2: unknown) (unknown) (no (unknown) (unknown) FINDINGS:? (units (unk nown) date) unknown) (unknown) (no (unknown) (unknown) Fosfomycin (units (unk nown) date) Tromethamine unknown) (Fosfomycin 3 Gm Packet) 3 gm PO NOW ONE (unknown) (no (unknown) (unknown) GI: abdomen soft, (units (unknown) date) nontender to unknown) palpation, nondistended, without masses, rebound (unknown) (no (unknown) (unknown) General (units (unkno wn) date) unknown) (unknown) (no (unknown) (unknown) General: (units (unkno wn) date) cooperative, unknown) comfortable, in no acute distress, well groomed, afebrile (unknown) (no (unknown) (unknown) Globulin (units (unkno wn) date) (1.7-4.1) g/dL unknown) (unknown) (no (unknown) (unknown) Globulin 3.9 (units (u nknown) date) (1.7-4.1) g/dL unknown) (unknown) (no (unknown) (unknown) Glucose (70-100) (units (unknown) date) mg/dL unknown) (unknown) (no (unknown) (unknown) Glucose 170 H (units ( unknown) date) (70-100) mg/dL unknown) (unknown) (no (unknown) (unknown) HEADACHE (units (unkno wn) date) unknown) (unknown) (no (unknown) (unknown) HEENT: (units (o wn) date) symmetrical facial unknown) expressions, moist mucous membranes (unknown) (no (unknown) (unknown) HPI - Fall (units (unk nown) date) unknown) (unknown) (no (unknown) (unknown) HPI Narrative: (units (unknown) date) unknown) (unknown) (no (unknown) (unknown) Hct (36-46) % (units ( unknown) date) unknown) (unknown) (no (unknown) (unknown) Hct 40.1 (36-46) (units (unknown) date) % unknown) (unknown) (no (unknown) (unknown) Her pain improved (units (unknown) date) after those unknown) medications. Patient denies history of taking (unknown) (no (unknown) (unknown) Hgb (12.0-16.0) (units (unknown) date) g/dL unknown) (unknown) (no (unknown) (unknown) Hgb 13.2 (units (unkno wn) date) (12.0-16.0) g/dL unknown) (unknown) (no (unknown) (unknown) History of (units (unk nown) date) Present Illness unknown) (unknown) (no (unknown) (unknown) Hydromorphone HCl (units (unknown) date) (Hydromorphone 0.5 unknown) Mg Inj) 0.5 mg IV NOW ONE (unknown) (no (unknown) (unknown) Hydromorphone HCl (units (unknown) date) (Hydromorphone 2 unknown) Mg Tablet) 2 mg PO NOW ONE (unknown) (no (unknown) (unknown) I evaluated the (units (unknown) date) patient and found unknown) her to have rectal tone. (unknown) (no (unknown) (unknown) I have reviewed (units (unknown) date) the patient's unknown) vital signs and nursing notes as well as prior (unknown) (no (unknown) (unknown) IMPRESSION:? No (units (unknown) date) trauma found, no unknown) pneumothorax identified. (unknown) (no (unknown) (unknown) IMPRESSION:? No (units (unknown) date) visualized acute unknown) fracture or dislocation. However, if clinical (unknown) (no (unknown) (unknown) INDICATIONS:? (units ( unknown) date) Fall unknown) (unknown) (no (unknown) (unknown) INFECTION (units (unkn own) date) unknown) (unknown) (no (unknown) (unknown) ITCHING (units (unkno wn) date) unknown) (unknown) (no (unknown) (unknown) Imaging Data (units (u nknown) date) unknown) (unknown) (no (unknown) (unknown) Independently (units ( unknown) date) reviewed imaging unknown) including: Right hip and right ribs x-ray (unknown) (no (unknown) (unknown) Influenza A (units (un known) date) (RT-PCR) unknown) (NEGATIVE) (unknown) (no (unknown) (unknown) Influenza A (units (un known) date) (RT-PCR) Flu a unknown) negative (NEGATIVE) (unknown) (no (unknown) (unknown) Influenza B (units (un known) date) (RT-PCR) unknown) (NEGATIVE) (unknown) (no (unknown) (unknown) Influenza B (units (un known) date) (RT-PCR) Flu b unknown) negative (NEGATIVE) (unknown) (no (unknown) (unknown) Initial Vital (units ( unknown) date) Signs unknown) (unknown) (no (unknown) (unknown) Initial Vital (units ( unknown) date) Signs: unknown) (unknown) (no (unknown) (unknown) Instructions: DI (units (unknown) date) for Urinary Tract unknown) Infection (UTI), How to Prevent Falls (unknown) (no (unknown) (unknown) Interpretation: (units (unknown) date) unknown) (unknown) (no (unknown) (unknown) [facility] (units (unknown) date) [address] [place] [address] unknown) [place] [address] (unknown) (no (unknown) (unknown) Ketorolac (units (unkn own) date) Tromethamine unknown) (Ketorolac 30 Mg/Ml Vial) 15 mg IV NOW ONE (unknown) (no (unknown) (unknown) Ketorolac (units (unkn own) date) Tromethamine unknown) (Ketorolac 30 Mg/Ml Vial) 30 mg IM NOW ONE (unknown) (no (unknown) (unknown) Lab Data (units (unkno wn) date) unknown) (unknown) (no (unknown) (unknown) Lab Results (units (un known) date) unknown) (unknown) (no (unknown) (unknown) Lab test results (units (unknown) date) independently unknown) reviewed, pertinent findings: Respiratory panel (unknown) (no (unknown) (unknown) Labs: (units (unkno wn) date) unknown) (unknown) (no (unknown) (unknown) Last Admin: (units (un known) date) 04/28/22 14:19 unknown) Dose: Not Given (unknown) (no (unknown) (unknown) Last Admin: (units (un known) date) 04/28/22 14:20 unknown) Dose: Not Given (unknown) (no (unknown) (unknown) Last Admin: (units (un known) date) 04/28/22 14:29 unknown) Dose: 12.5 mg (unknown) (no (unknown) (unknown) Last Admin: (units (un known) date) 04/28/22 14:29 unknown) Dose: 2 mg (unknown) (no (unknown) (unknown) Last Admin: (units (un known) date) 04/28/22 14:30 unknown) Dose: 750 mg (unknown) (no (unknown) (unknown) Last Admin: (units (un known) date) 04/28/22 16:05 unknown) Dose: 200 mg (unknown) (no (unknown) (unknown) Last Admin: (units (un known) date) 04/28/22 16:05 unknown) Dose: 30 mg (unknown) (no (unknown) (unknown) Last Admin: (units (un known) date) 04/28/22 16:55 unknown) Dose: 100 mg (unknown) (no (unknown) (unknown) Last Admin: (units (un known) date) 04/28/22 17:04 unknown) Dose: Not Given (unknown) (no (unknown) (unknown) Last Admin: (units (un known) date) 04/28/22 17:05 unknown) Dose: Not Given (unknown) (no (unknown) (unknown) Lungs and (units (unkn own) date) pleura:? No unknown) pleural effusions or pneumothorax.? Lungs appear clear.? (unknown) (no (unknown) (unknown) Lymph # (Auto) (units (unknown) date) (5508-0450) /uL unknown) (unknown) (no (unknown) (unknown) Lymph # (Auto) (units (unknown) date) 2600 (4015-8219) unknown) /uL (unknown) (no (unknown) (unknown) Lymph % (Auto) (units (unknown) date) (25-40) % unknown) (unknown) (no (unknown) (unknown) Lymph % (Auto) (units (unknown) date) 39.2 (25-40) % unknown) (unknown) (no (unknown) (unknown) MCH (26-34) PG (units (unknown) date) unknown) (unknown) (no (unknown) (unknown) MCH 25.5 L (units (unk nown) date) (26-34) PG unknown) (unknown) (no (unknown) (unknown) MCHC (30-36) % (units (unknown) date) unknown) (unknown) (no (unknown) (unknown) MCHC 32.8 (30-36) (units (unknown) date) % unknown) (unknown) (no (unknown) (unknown) MCV (80-100) fL (units (unknown) date) unknown) (unknown) (no (unknown) (unknown) MCV 77.6 L (units (unk nown) date) (80-100) fL unknown) (unknown) (no (unknown) (unknown) MDM - Fall (units (unk nown) date) unknown) (unknown) (no (unknown) (unknown) MDM Narrative (units ( unknown) date) unknown) (unknown) (no (unknown) (unknown) MIPS: This (units (unk n) date) encounter doesn't unknown) have any diagnosis' associated with MIPS criteria. (unknown) (no (unknown) (unknown) MSK: moves all (units (unknown) date) extremities, unknown) neurovascularly intact, no weakness, normal tone, (unknown) (no (unknown) (unknown) Macrobid. Patient (units (unknown) date) does not have unknown) upper urinary symptoms, flank pain or other (unknown) (no (unknown) (unknown) Mediastinum:? (units ( unknown) date) Mediastinal unknown) contours appear normal.? Heart size is normal.? (unknown) (no (unknown) (unknown) Medical History (units (unknown) date) (Updated 04/28/22 unknown) @ 16:24 by Cassy Chan [facility]) (unknown) (no (unknown) (unknown) Medical decision (units (unknown) date) making narrative: unknown) (unknown) (no (unknown) (unknown) Medication (units (unk nown) date) Instructions unknown) Recorded (unknown) (no (unknown) (unknown) Met with the (units (u w) date) patient, ordered unknown) her pain medication per her request, she states (unknown) (no (unknown) (unknown) Methocarbamol (units ( unknown) date) (Methocarbamol 500 unknown) Mg Tablet) 750 mg PO NOW ONE (unknown) (no (unknown) (unknown) Metoclopramide (units (unknown) date) HCl unknown) (Metoclopramide 10 Mg/2 Ml Inj) 10 mg IV NOW ONE (unknown) (no (unknown) (unknown) Mode of arrival: (units (unknown) date) EMS unknown) (unknown) (no (unknown) (unknown) [place] # (Auto) (units ( unknown) date) (0-900) /uL unknown) (unknown) (no (unknown) (unknown) [place] # (Auto) 300 (units (unknown) date) (0-900) /uL unknown) (unknown) (no (unknown) (unknown) [place] % (Auto) (units ( unknown) date) (3-14) % unknown) (unknown) (no (unknown) (unknown) [place] % (Auto) 4.4 (units (unknown) date) (3-14) % unknown) (unknown) (no (unknown) (unknown) Narrative (units (unkn own) date) unknown) (unknown) (no (unknown) (unknown) Neuro: normal (units ( unknown) date) speech and unknown) cognition, A+O x3, ambulatory, clear speech (unknown) (no (unknown) (unknown) Neut # (Auto) (units ( unknown) date) (4100-5584) /uL unknown) (unknown) (no (unknown) (unknown) Neut # (Auto) (units ( unknown) date) 3600 (5837-9208) unknown) /uL (unknown) (no (unknown) (unknown) Neut % (Auto) (units ( unknown) date) (50-75) % unknown) (unknown) (no (unknown) (unknown) Neut % (Auto) (units ( unknown) date) 53.8 (50-75) % unknown) (unknown) (no (unknown) (unknown) New (units (unkno wn) date) unknown) (unknown) (no (unknown) (unknown) Night terrors, (units (unknown) date) adult unknown) (unknown) (no (unknown) (unknown) Nitrofurantoin (units (unknown) date) Macrocrystals unknown) (Nitrofurantoin Er 100 Mg Capsule) 100 mg PO NOW (unknown) (no (unknown) (unknown) No Action (units (unkn own) date) unknown) (unknown) (no (unknown) (unknown) ONE (units (unkno wn) date) unknown) (unknown) (no (unknown) (unknown) Ordered UA, (units (un known) date) patient states unknown) that she thinks she can void. (unknown) (no (unknown) (unknown) Ordered: (units (unkno wn) date) unknown) (unknown) (no (unknown) (unknown) Orders (units (unkno wn) date) unknown) (unknown) (no (unknown) (unknown) Overlying soft (units (unknown) date) tissues appear unknown) unremarkable.? (unknown) (no (unknown) (unknown) Oxygen Delivery (units (unknown) date) Method 04/28/22 unknown) 12:20 (unknown) (no (unknown) (unknown) Oxygen Delivery (units (unknown) date) Method Nasal unknown) Cannula Room Air Room Air (unknown) (no (unknown) (unknown) Oxygen Delivery (units (unknown) date) Method Room Air unknown) Nasal Cannula (unknown) (no (unknown) (unknown) Oxygen Delivery (units (unknown) date) Method Room Air unknown) Room Air (unknown) (no (unknown) (unknown) Oxygen Delivery (units (unknown) date) Method Room Air unknown) (unknown) (no (unknown) (unknown) Oxygen Delivery (units (unknown) date) Method unknown) (unknown) (no (unknown) (unknown) Oxygen Flow Rate (units (unknown) date) 1 unknown) (unknown) (no (unknown) (unknown) Oxygen Flow Rate (units (unknown) date) 2 unknown) (unknown) (no (unknown) (unknown) Oxygen Flow Rate (units (unknown) date) unknown) (unknown) (no (unknown) (unknown) PROCEDURE:? XR (units (unknown) date) HIP W PEL IF DONE unknown) RT 2V (unknown) (no (unknown) (unknown) PROCEDURE:? XR (units (unknown) date) RIBS RT MIN 3V W unknown) CXR 1V (unknown) (no (unknown) (unknown) Patient (units (unkno wn) date) Disposition: Home unknown) (unknown) (no (unknown) (unknown) Patient History (units (unknown) date) unknown) (unknown) (no (unknown) (unknown) Patient is able (units (unknown) date) to ambulate and unknown) ambulated on the monitor with a heart rate of (unknown) (no (unknown) (unknown) Patient is (units (unk nown) date) appropriate for unknown) outpatient management. (unknown) (no (unknown) (unknown) Patient is (units (unk nown) date) sitting up on the unknown) stretcher, appears comfortable, is talkative, (unknown) (no (unknown) (unknown) Patient's heart (units (unknown) date) rate is currently unknown) 97 on the monitor, vitals have not been (unknown) (no (unknown) (unknown) Patient's (units (unkn own) date) symptoms improved unknown) over duration of stay with above-stated therapies. (unknown) (no (unknown) (unknown) Patient's urine (units (unknown) date) microscopy shows unknown) bacteria, urine culture was ordered, no prior (unknown) (no (unknown) (unknown) Patient: (units (unkno wn) date) Leatha Cartwright unknown) MR#: [id number] (unknown) (no (unknown) (unknown) Phenazopyridine (units (unknown) date) HCl unknown) (Phenazopyridine 100 Mg Tablet) 200 mg PO NOW ONE (unknown) (no (unknown) (unknown) Please use as (units ( unknown) date) needed for nausea unknown) and vomiting (unknown) (no (unknown) (unknown) Plt Count (units (unkn own) date) (150-400) X103/uL unknown) (unknown) (no (unknown) (unknown) Plt Count 207 (units ( unknown) date) (150-400) X103/uL unknown) (unknown) (no (unknown) (unknown) Point of Care (units ( unknown) date) Testing unknown) (unknown) (no (unknown) (unknown) Potassium (units (unkn own) date) (3.4-5.1) mmol/L unknown) (unknown) (no (unknown) (unknown) Potassium 3.9 (units ( unknown) date) (3.4-5.1) mmol/L unknown) (unknown) (no (unknown) (unknown) Test (units (unknown) date) Results Negative unknown) (unknown) (no (unknown) (unknown) Prescriptions: (units (unknown) date) unknown) (unknown) (no (unknown) (unknown) Previous Rx's (units ( unknown) date) unknown) (unknown) (no (unknown) (unknown) Procalcitonin (units ( unknown) date) (<0.5) ng/mL unknown) (unknown) (no (unknown) (unknown) Procalcitonin (units ( unknown) date) 0.12 (<0.5) ng/mL unknown) (unknown) (no (unknown) (unknown) Procalcitonin (units ( unknown) date) Stat unknown) (unknown) (no (unknown) (unknown) Promethazine HCl (units (unknown) date) (Promethazine 25 unknown) Mg Tablet) 12.5 mg PO NOW ONE (unknown) (no (unknown) (unknown) Psych: mental (units ( unknown) date) status is grossly unknown) normal, congruent mood, normal affect, pleasant (unknown) (no (unknown) (unknown) Pulse Oximetry (units (unknown) date) 100 04/28/22 12:20 unknown) (unknown) (no (unknown) (unknown) Pulse Oximetry (units (unknown) date) 100 96 unknown) (unknown) (no (unknown) (unknown) Pulse Oximetry 91 (units (unknown) date) 94 95 unknown) (unknown) (no (unknown) (unknown) Pulse Oximetry 94 (units (unknown) date) 96 unknown) (unknown) (no (unknown) (unknown) Pulse Oximetry 96 (units (unknown) date) 93 93 unknown) (unknown) (no (unknown) (unknown) Pulse Oximetry 96 (units (unknown) date) 94 unknown) (unknown) (no (unknown) (unknown) Pulse Oximetry 96 (units (unknown) date) 95 91 unknown) (unknown) (no (unknown) (unknown) Pulse Rate 111 H (units (unknown) date) 105 H 107 H unknown) (unknown) (no (unknown) (unknown) Pulse Rate 111 H (units (unknown) date) 115 H unknown) (unknown) (no (unknown) (unknown) Pulse Rate 112 H (units (unknown) date) 111 H unknown) (unknown) (no (unknown) (unknown) Pulse Rate 114 H (units (unknown) date) 04/28/22 12:20 unknown) (unknown) (no (unknown) (unknown) Pulse Rate 114 H (units (unknown) date) 112 H unknown) (unknown) (no (unknown) (unknown) Pulse Rate 118 H (units (unknown) date) 122 H unknown) (unknown) (no (unknown) (unknown) Pulse Rate 123 H (units (unknown) date) 120 H 122 H unknown) (unknown) (no (unknown) (unknown) Qualifiers: (units (un known) date) unknown) (unknown) (no (unknown) (unknown) Questions are (units ( unknown) date) addressed and unknown) there is agreement with the plan and for follow-up. (unknown) (no (unknown) (unknown) RBC (4.0-5.2) (units ( unknown) date) X106/uL unknown) (unknown) (no (unknown) (unknown) RBC 5.16 (units (unkno wn) date) (4.0-5.2) X106/uL unknown) (unknown) (no (unknown) (unknown) RDW (11.6-14.8) % (units (unknown) date) unknown) (unknown) (no (unknown) (unknown) RDW 15.2 H (units (unk nown) date) (11.6-14.8) % unknown) (unknown) (no (unknown) (unknown) ROS Unobtainable: (units (unknown) date) All systems unknown) reviewed + are unremarkable except as noted in HPI (unknown) (no (unknown) (unknown) RSV (PCR) (units (unkn own) date) (Negative) unknown) (unknown) (no (unknown) (unknown) RSV (PCR) (units (unkn own) date) Negative unknown) (Negative) (unknown) (no (unknown) (unknown) Radiologist's (units ( unknown) date) Impression: unknown) (unknown) (no (unknown) (unknown) Related Data (units (u nknown) date) unknown) (unknown) (no (unknown) (unknown) Respiratory Rate (units (unknown) date) 16 04/28/22 12:20 unknown) (unknown) (no (unknown) (unknown) Respiratory Rate (units (unknown) date) 16 unknown) (unknown) (no (unknown) (unknown) Respiratory Rate (units (unknown) date) 18 unknown) (unknown) (no (unknown) (unknown) Respiratory Rate (units (unknown) date) unknown) (unknown) (no (unknown) (unknown) Respiratory: (units (u nknown) date) normal effort, unknown) able to speak in complete sentences, without (unknown) (no (unknown) (unknown) Review of Systems (units (unknown) date) unknown) (unknown) (no (unknown) (unknown) Reviewed vitals (units (unknown) date) signs and nursing unknown) notes. (unknown) (no (unknown) (unknown) Rx Instructions: (units (unknown) date) unknown) (unknown) (no (unknown) (unknown) SARS-CoV-2 (PCR) (units (unknown) date) (Negative) unknown) (unknown) (no (unknown) (unknown) SARS-CoV-2 (PCR) (units (unknown) date) Negative unknown) (Negative) (unknown) (no (unknown) (unknown) Shared decision (units (unknown) date) making: With the unknown) patient about all of her care. She states (unknown) (no (unknown) (unknown) Signed By: (units (unk nown) date) unknown) (unknown) (no (unknown) (unknown) Skin: brisk (units (un known) date) capillary refill, unknown) without pallor or erythema (unknown) (no (unknown) (unknown) Smoking Status: (units (unknown) date) Former smoker unknown) (unknown) (no (unknown) (unknown) Social History (units (unknown) date) (Reviewed 09/18/18 unknown) @ 10:12 by Roxanne Thomas DO) (unknown) (no (unknown) (unknown) Social (units (unkno wn) date) considerations unknown) that may affect disposition: none (unknown) (no (unknown) (unknown) Sodium (137-145) (units (unknown) date) mmol/L unknown) (unknown) (no (unknown) (unknown) Sodium 139 (units (unk nown) date) (137-145) mmol/L unknown) (unknown) (no (unknown) (unknown) Sodium Chloride (units (unknown) date) (Normal Saline unknown) 0.9%) 1,000 mls @ 1,000 mls/hr IV BOLUS ONE (unknown) (no (unknown) (unknown) Soft tissues:? (units (unknown) date) The visualized unknown) bowel gas pattern is normal.? No suspicious soft (unknown) (no (unknown) (unknown) Source: patient (units (unknown) date) and EMS unknown) (unknown) (no (unknown) (unknown) Stand Alone (units (un known) date) Forms: Patient unknown) Portal/API (unknown) (no (unknown) (unknown) Stated Complaint: (units (unknown) date) R Hip snap crackle unknown) pop (unknown) (no (unknown) (unknown) Stop: 04/28/22 (units (unknown) date) 13:19 unknown) (unknown) (no (unknown) (unknown) Stop: 04/28/22 (units (unknown) date) 13:22 unknown) (unknown) (no (unknown) (unknown) Stop: 04/28/22 (units (unknown) date) 14:13 unknown) (unknown) (no (unknown) (unknown) Stop: 04/28/22 (units (unknown) date) 14:20 unknown) (unknown) (no (unknown) (unknown) Stop: 04/28/22 (units (unknown) date) 15:29 unknown) (unknown) (no (unknown) (unknown) Stop: 04/28/22 (units (unknown) date) 16:23 unknown) (unknown) (no (unknown) (unknown) Stop: 04/28/22 (units (unknown) date) 16:26 unknown) (unknown) (no (unknown) (unknown) Stop: 04/28/22 (units (unknown) date) 16:39 unknown) (unknown) (no (unknown) (unknown) Substance Use (units ( unknown) date) Type: does not use unknown) (unknown) (no (unknown) (unknown) Sulfa (units (unkno wn) date) (Sulfonamide unknown) Allergy Severe NAUSEA, Verified 04/28/22 12:26 (unknown) (no (unknown) (unknown) Surgical changes (units (unknown) date) and devices:? unknown) None.? (unknown) (no (unknown) (unknown) TECHNIQUE:? AP (units (unknown) date) pelvis with unknown) lateral view(s) of the right hip(s).? (unknown) (no (unknown) (unknown) TECHNIQUE:? Two (units (unknown) date) views of the right unknown) ribs were acquired, along with a single view (unknown) (no (unknown) (unknown) TING (units (unkno wn) date) unknown) (unknown) (no (unknown) (unknown) Temperature 97.9 (units (unknown) date) F 04/28/22 12:20 unknown) (unknown) (no (unknown) (unknown) Temperature 97.9 (units (unknown) date) F unknown) (unknown) (no (unknown) (unknown) Temperature (units (un known) date) unknown) (unknown) (no (unknown) (unknown) This is a (units (unkn own) date) 41-year-old female unknown) with history of bipolar 1 who presents to the (unknown) (no (unknown) (unknown) Time Seen by (units (u nknown) date) Provider: 04/28/22 unknown) 12:55 (unknown) (no (unknown) (unknown) Total Bilirubin (units (unknown) date) (0.2-1.3) mg/dL unknown) (unknown) (no (unknown) (unknown) Total Bilirubin (units (unknown) date) 0.6 (0.2-1.3) unknown) mg/dL (unknown) (no (unknown) (unknown) Total Protein (units ( unknown) date) (6.3-8.2) g/dL unknown) (unknown) (no (unknown) (unknown) Total Protein 8.5 (units (unknown) date) H (6.3-8.2) g/dL unknown) (unknown) (no (unknown) (unknown) UTI (urinary (units (u nknown) date) tract infection) unknown) (unknown) (no (unknown) (unknown) Ur Culture (units (unk nown) date) Indicated? Cult unknown) not indicated (unknown) (no (unknown) (unknown) Ur Culture (units (unk nown) date) Indicated? unknown) (unknown) (no (unknown) (unknown) Ur Squamous Epith (units (unknown) date) Cells (0-5/HPF) unknown) (unknown) (no (unknown) (unknown) Ur Squamous Epith (units (unknown) date) Cells 1-5 /hpf unknown) (0-5/HPF) (unknown) (no (unknown) (unknown) Urinary tract (units ( unknown) date) infection type: unknown) acute cystitis Hematuria presence: without (unknown) (no (unknown) (unknown) Urine Bacteria (units (unknown) date) (None) unknown) (unknown) (no (unknown) (unknown) Urine Bacteria (units (unknown) date) Many (>30) H unknown) (None) (unknown) (no (unknown) (unknown) Urine Culture (units ( unknown) date) Stat unknown) (unknown) (no (unknown) (unknown) Urine Dip (units (unkn own) date) unknown) (unknown) (no (unknown) (unknown) Urine Microscopic (units (unknown) date) Stat unknown) (unknown) (no (unknown) (unknown) Urine RBC (units (unkn own) date) (0-5/HPF) unknown) (unknown) (no (unknown) (unknown) Urine RBC None (units (unknown) date) seen (0-5/HPF) unknown) (unknown) (no (unknown) (unknown) Urine Specific (units (unknown) date) [place] 1.025 unknown) (unknown) (no (unknown) (unknown) Urine WBC (units (unkn own) date) (0-5/HPF) unknown) (unknown) (no (unknown) (unknown) Urine WBC 0-1/hpf (units (unknown) date) (0-5/HPF) unknown) (unknown) (no (unknown) (unknown) Vital Signs - 8 (units (unknown) date) hr unknown) (unknown) (no (unknown) (unknown) Vital Signs (units (un known) date) unknown) (unknown) (no (unknown) (unknown) Vital signs: (units (u nknown) date) unknown) (unknown) (no (unknown) (unknown) WBC (4.5-11.0) (units (unknown) date) X103/uL unknown) (unknown) (no (unknown) (unknown) WBC 6.7 (units (unkno wn) date) (4.5-11.0) X103/uL unknown) (unknown) (no (unknown) (unknown) XR hip w pel if (units (unknown) date) done RT 2V Stat unknown) (unknown) (no (unknown) (unknown) XR ribs RT min 3V (units (unknown) date) w CXR1V Stat unknown) (unknown) (no (unknown) (unknown) Zofran. She is (units (unknown) date) slurring her words unknown) mildly but is sitting upright, without (unknown) (no (unknown) (unknown) [ ] New (units (unkno wn) date) medication written unknown) as a paper prescription (unknown) (no (unknown) (unknown) [ ] No new (units (unk nown) date) medications given unknown) (unknown) (no (unknown) (unknown) [117] bpm with (units (unknown) date) regular axis and unknown) prolonged QT 450 milliseconds without other (unknown) (no (unknown) (unknown) [Embedded Image (units (unknown) date) Not Available] unknown) (unknown) (no (unknown) (unknown) [SULFA (units (unkno wn) date) (SULFONAMIDE unknown) (unknown) (no (unknown) (unknown) [x ] New (units (unkno wn) date) medication unknown) prescriptions sent to your pharmacy: [ [facility] (unknown) (no (unknown) (unknown) alcohol intake (units (unknown) date) frequency: unknown) holidays/special occasions only (unknown) (no (unknown) (unknown) alert. (units (unkno wn) date) unknown) (unknown) (no (unknown) (unknown) also states that (units (unknown) date) Zofran is not unknown) adequate for nausea and she needs something (unknown) (no (unknown) (unknown) amoxicillin (units (un known) date) [AMOXICILLIN] unknown) AdvReac Intermediate YEAST Verified 04/28/22 12:26 (unknown) (no (unknown) (unknown) anaphylaxis, (units (u nknown) date) states that she unknown) uses Xanax and muscle relaxers for pain at. She (unknown) (no (unknown) (unknown) and below (units (unkn own) date) unknown) (unknown) (no (unknown) (unknown) and cooperative (units (unknown) date) unknown) (unknown) (no (unknown) (unknown) and/or pain (units (un known) date) persist, short unknown) interval imaging followup in 7-10 days is (unknown) (no (unknown) (unknown) antibiotic is not (units (unknown) date) appropriate for unknown) your urine infection. Thank you for waiting (unknown) (no (unknown) (unknown) antibiotics, (units (u nknown) date) states she is unknown) allergic to Percocet with itching but does not have (unknown) (no (unknown) (unknown) any sensation (units ( unknown) date) changes, states unknown) that after the fall she was able to get up with (unknown) (no (unknown) (unknown) appointment. Let (units (unknown) date) them know you were unknown) seen in the Emergency Department and that we (unknown) (no (unknown) (unknown) asked that you be (units (unknown) date) seen for unknown) follow-up. We will electronically transmit a record (unknown) (no (unknown) (unknown) calcifications.? (units (unknown) date) unknown) (unknown) (no (unknown) (unknown) capsule (units (unkno wn) date) (Macrobid) unknown) (unknown) (no (unknown) (unknown) cephalexin (units (unk nown) date) [CEPHALEXIN] unknown) Allergy Unknown NAUSEA/VOMI Verified 04/28/22 12:26 (unknown) (no (unknown) (unknown) changes. (units (unkno wn) date) unknown) (unknown) (no (unknown) (unknown) chest.? (units (unkno wn) date) unknown) (unknown) (no (unknown) (unknown) codeine [CODEINE] (units (unknown) date) Allergy Mild unknown) NAUSEA, Verified 04/28/22 12:26 (unknown) (no (unknown) (unknown) concern (units (unkno wn) date) unknown) (unknown) (no (unknown) (unknown) concerning (units (unk nown) date) symptoms, such as unknown) [fever greater than 101F, chills, worsening pain, (unknown) (no (unknown) (unknown) denies (units (unkno wn) date) diaphoresis, unknown) shortness of breath, difficulty breathing, chest pain, (unknown) (no (unknown) (unknown) department, (units (un known) date) please use your unknown) home pain medications to treat her pain, I have (unknown) (no (unknown) (unknown) ecchymosis or (units ( unknown) date) obvious deformity, unknown) no pain to right hip with axial load from foot (unknown) (no (unknown) (unknown) electrolyte (units (un known) date) abnormalities of unknown) concern, mild increase of alk-phos to 143, AST of (unknown) (no (unknown) (unknown) emergency (units (unkn own) date) department via EMS unknown) after a mechanical fall where she was walking (unknown) (no (unknown) (unknown) establish care (units (unknown) date) with one of the unknown) [facility] primary care providers. (unknown) (no (unknown) (unknown) extremities (units (un known) date) unknown) (unknown) (no (unknown) (unknown) given you some (units ( unknown) date) nausea medication unknown) to help you through this, please follow-up with (unknown) (no (unknown) (unknown) have any emesis, (units (unknown) date) does not feel neck unknown) pain, denies LOC. (unknown) (no (unknown) (unknown) hematuria (units (unkn own) date) Qualified Code(s): unknown) N30.00 - Acute cystitis without hematuria (unknown) (no (unknown) (unknown) hip fracture, (units ( unknown) date) acute cystitis, unknown) pyelonephritis, PID, nephrolithiasis, obstructive (unknown) (no (unknown) (unknown) hip. Patient has (units (unknown) date) a history of unknown) bipolar disorder, has had emotional episodes in (unknown) (no (unknown) (unknown) history kidney (units (unknown) date) stone and unknown) hematuria in the past and endorses that she feels like (unknown) (no (unknown) (unknown) history of (units (unk nown) date) bladder unknown) stimulator, denies history of low back pain, has documented (unknown) (no (unknown) (unknown) hydrocodone 5 (units ( unknown) date) mg-acetaminophen unknown) 325 1 tab PO Q6H PRN pain #10 tabs 09/18/18 (unknown) (no (unknown) (unknown) hydrocodone-aceta (units (unknown) date) minophen [[place]] unknown) 5-325 mg tablet (unknown) (no (unknown) (unknown) hydromorphone 2 (units (unknown) date) mg tablet 2 mg PO unknown) Q6HP PRN #8 tabs 01/11/16 (unknown) (no (unknown) (unknown) hydromorphone (units ( unknown) date) [Dilaudid] 2 MG unknown) tablet (unknown) (no (unknown) (unknown) hyperventilating, (units (unknown) date) her heart rate unknown) goes up, she complains never having (unknown) (no (unknown) (unknown) hypoxia, wearing (units (unknown) date) 2 L nasal cannula unknown) as she became sedated in the ambulance EN (unknown) (no (unknown) (unknown) incontinence (units (u nknown) date) before. She says unknown) that she did not feel it coming on. She states (unknown) (no (unknown) (unknown) injury without (units (unknown) date) fracture, or other unknown) abnormality visualized on x-ray to your ribs (unknown) (no (unknown) (unknown) interval changes. (units (unknown) date) No STEMI, ST unknown) segment changes, arrhythmia, or acute ischemic (unknown) (no (unknown) (unknown) is negative for (units (unknown) date) tested viruses, no unknown) leukocytosis or anemia, no left shift, no (unknown) (no (unknown) (unknown) ketorolac 10 MG (units (unknown) date) tablet unknown) (unknown) (no (unknown) (unknown) ketorolac 10 mg (units (unknown) date) tablet 10 mg PO unknown) Q6HP PRN #10 tabs 01/11/16 (unknown) (no (unknown) (unknown) lesions.? (units (unkn own) date) unknown) (unknown) (no (unknown) (unknown) levofloxacin (units (u nknown) date) [LEVOFLOXACIN] unknown) Allergy Unknown N/V, Verified 04/28/22 12:26 (unknown) (no (unknown) (unknown) levofloxacin, and (units (unknown) date) amoxicillin, will unknown) treat with fosfomycin x1 and sent home with (unknown) (no (unknown) (unknown) mg tablet ([place]) (units (unknown) date) unknown) (unknown) (no (unknown) (unknown) mg tablet (units (unkn own) date) (Percocet) unknown) (unknown) (no (unknown) (unknown) monohydrate/macro (units (unknown) date) crystals 100 mg unknown) (unknown) (no (unknown) (unknown) months. She (units (un known) date) denies any unknown) surgeries over lower extremities in the past. She has (unknown) (no (unknown) (unknown) motion of her (units ( unknown) date) right knee and unknown) right foot with good perfusion, palpable pedal (unknown) (no (unknown) (unknown) must administer (units (unknown) date) with a meal/food unknown) (unknown) (no (unknown) (unknown) nitrofurantoin (units (unknown) date) 100 mg PO BID 5 unknown) days #10 caps 04/28/22 (unknown) (no (unknown) (unknown) nitrofurantoin (units (unknown) date) monohyd/m-cryst unknown) [Macrobid] 100 mg capsule (unknown) (no (unknown) (unknown) nontender over (units (unknown) date) spine, patient unknown) complains of pain to the right iliac crest with (unknown) (no (unknown) (unknown) not working. (units (u nknown) date) Patient tells me unknown) that she was incontinent. She starts (unknown) (no (unknown) (unknown) occult injury (units ( unknown) date) cannot be unknown) definitively excluded. (unknown) (no (unknown) (unknown) of today's note (units (unknown) date) if your PCP is in unknown) our system (unknown) (no (unknown) (unknown) or pelvis. Your (units (unknown) date) lab work overall unknown) is unremarkable which is a great thing, please (unknown) (no (unknown) (unknown) outside onto her (units (unknown) date) right side and now unknown) complains of right-sided hip pain. She (unknown) (no (unknown) (unknown) oxycodone-acetami (units (unknown) date) nophen 5 mg-325 1 unknown) tab PO Q8H PRN pain #10 tabs 04/28/22 (unknown) (no (unknown) (unknown) oxycodone-acetami (units (unknown) date) nophen [Percocet] unknown) 5-325 mg tablet (unknown) (no (unknown) (unknown) pain. (units (unkno wn) date) unknown) (unknown) (no (unknown) (unknown) palpation, full (units (unknown) date) range of motion of unknown) right hip is without weakness. Full range of (unknown) (no (unknown) (unknown) persistent (units (unk nown) date) vomiting or other unknown) bothersome symptoms]. (unknown) (no (unknown) (unknown) phenazopyridine (units (unknown) date) 200 mg tablet 200 unknown) mg PO QPC PRN pain 6 doses #7 04/28/22 (unknown) (no (unknown) (unknown) phenazopyridine (units (unknown) date) [Pyridium] 200 mg unknown) tablet (unknown) (no (unknown) (unknown) prednisone 20 MG (units (unknown) date) tablet unknown) (unknown) (no (unknown) (unknown) prednisone 20 mg (units (unknown) date) tablet 20 mg PO unknown) QAM #3 tabs 01/11/16 (unknown) (no (unknown) (unknown) promethazine 12.5 (units (unknown) date) mg tablet 12.5 mg unknown) PO BID #10 tabs 04/28/22 (unknown) (no (unknown) (unknown) promethazine 12.5 (units (unknown) date) mg tablet unknown) (unknown) (no (unknown) (unknown) promethazine 25 (units (unknown) date) MG tablet unknown) (unknown) (no (unknown) (unknown) promethazine 25 (units (unknown) date) mg tablet 25 mg PO unknown) Q6HP PRN #10 tabs 05/12/16 (unknown) (no (unknown) (unknown) promethazine 25 (units (unknown) date) mg tablet 25 mg PO unknown) Q6HP PRN #10 tabs 01/10/ (unknown) (no (unknown) (unknown) pulses. Brisk cap (units (unknown) date) refill in her unknown) toes. She denies any sensation deficit. No (unknown) (no (unknown) (unknown) received 200 mcgs (units (unknown) date) of fentanyl EN unknown) route. Patient denies any in her head, did not (unknown) (no (unknown) (unknown) received a fluid (units (unknown) date) bolus, is starting unknown) to tolerate p.o., is without severe pain at (unknown) (no (unknown) (unknown) recommended, as (units (unknown) date) unknown) (unknown) (no (unknown) (unknown) records if (units (unk nown) date) available. unknown) (unknown) (no (unknown) (unknown) refuses the (units (un known) date) testing as she unknown) denies having any symptoms of vaginitis or pelvic (unknown) (no (unknown) (unknown) route after (units (un known) date) receiving unknown) fentanyl. No concerning findings on exam of her right (unknown) (no (unknown) (unknown) she has a urinary (units (unknown) date) tract infection. unknown) She states that she is allergic to multiple (unknown) (no (unknown) (unknown) she is nauseated (units (unknown) date) but has not had unknown) vomiting and requests something stronger than (unknown) (no (unknown) (unknown) states that she (units (unknown) date) is had a history unknown) hip pain with ambulation for the last 2-3 (unknown) (no (unknown) (unknown) stay hydrated, (units (unknown) date) tomorrow start unknown) taking Macrobid for your bladder infection. If (unknown) (no (unknown) (unknown) stronger. She (units ( unknown) date) states that she is unknown) had a low-grade fever for the last 2 days but (unknown) (no (unknown) (unknown) suspicious bony (units (unknown) date) unknown) (unknown) (no (unknown) (unknown) symptoms at this (units (unknown) date) time. She is unknown) afebrile, her tachycardia has improved, she is (unknown) (no (unknown) (unknown) tenderness or (units ( unknown) date) exquisite unknown) tenderness with exam. No CVA tenderness bilaterally (unknown) (no (unknown) (unknown) that her pain is (units (unknown) date) improved after unknown) medications (unknown) (no (unknown) (unknown) that she still (units (unknown) date) needs to void, the unknown) nurse was called. (unknown) (no (unknown) (unknown) the emergency (units ( unknown) date) department and unknown) states that she is extremely anxious and is unable (unknown) (no (unknown) (unknown) the help of 2 (units ( unknown) date) people but states unknown) she was unable to bear weight on this side. (unknown) (no (unknown) (unknown) the urine was (units ( unknown) date) from catheter so unknown) she should not need to complete a wet mount and (unknown) (no (unknown) (unknown) this time, using (units (unknown) date) her phone, unknown) talkative, denies any vaginal discharge, states that (unknown) (no (unknown) (unknown) tissue (units (unkno wn) date) unknown) (unknown) (no (unknown) (unknown) to communicate or (units (unknown) date) do anything at unknown) those times. (unknown) (no (unknown) (unknown) to feel much (units (u nknown) date) better at 16:10. unknown) (unknown) (no (unknown) (unknown) today for all of (units (unknown) date) the tests come unknown) back, I hope you feel better soon. (unknown) (no (unknown) (unknown) tolerate Percocet (units (unknown) date) requests a unknown) prescription for Percocet to go home with. (unknown) (no (unknown) (unknown) updated prior to (units (unknown) date) her discharge. unknown) (unknown) (no (unknown) (unknown) urine cultures on (units (unknown) date) record. Patient unknown) has an allergy to sulfa, cephalexin, (unknown) (no (unknown) (unknown) uropathy, (units (unkn own) date) unknown) (unknown) (no (unknown) (unknown) weakness, (units (unkn own) date) incontinence, unknown) abdominal pain, flank pain or other pain. She denies (unknown) (no (unknown) (unknown) were not (units (unkno wn) date) confirmed or unknown) updated when she came in. She clarified that she can (unknown) (no (unknown) (unknown) wheezing, (units (unkn own) date) stridor, or unknown) abnormal breath sounds. No retractions or tachypnea. (unknown) (no (unknown) (unknown) while she was (units (u nknown) date) lying down, she unknown) was started on this but now is much more awake and (unknown) (no (unknown) (unknown) without (units (unkno wn) date) indication for CT unknown) imaging of C-spine or head (unknown) (no (unknown) (unknown) without (units (unkno wn) date) pneumothorax, unknown) acute fracture or other acute abnormality. (unknown) (no (unknown) (unknown) you have (units (unkno wn) date) worsening of her unknown) symptoms, please come back to the emergency (unknown) (no (unknown) (unknown) your primary care (units (unknown) date) provider for a unknown) test of cure. We will call you if the Result panel 93 (unknown) (no (unknown) (unknown) (no value) (units (unk nown) date) unknown) (unknown) (no (unknown) (unknown) <Electronically (units (unknown) date) signed by Cassy Chan> (unknown) (no (unknown) (unknown) <Electronically (units (unknown) date) signed by Low Kilpatrick D.O.> (unknown) (no (unknown) (unknown) <Cassy Chan, (units (unknown) date) [facility] - Last Filed: unknown) 04/28/22 17:10> (unknown) (no (unknown) (unknown) <Low Kilpatrick (units (unknown) date) DO - Last Filed: unknown) 04/28/22 17:30> (unknown) (no (unknown) (unknown) (Dilaudid) (units (unk nown) date) unknown) (unknown) (no (unknown) (unknown) (Pyridium) tabs (units (unknown) date) unknown) (unknown) (no (unknown) (unknown) *If you do not (units (unknown) date) have a primary unknown) care provider please contact [phone] to (unknown) (no (unknown) (unknown) *Please continue (units (unknown) date) to take your unknown) regular medications as directed. (unknown) (no (unknown) (unknown) *Please follow up (units (unknown) date) with your primary unknown) care provider in 2-3 days, call for an (unknown) (no (unknown) (unknown) *Return to (units (unk nown) date) Emergency unknown) Department if you should have any new, worsening, or (unknown) (no (unknown) (unknown) *What to do: (units (u nknown) date) unknown) (unknown) (no (unknown) (unknown) *You have been (units (unknown) date) diagnosed with unknown) urinary tract infection, fall with a right hip (unknown) (no (unknown) (unknown) [id number] (units (unkno wn) date) unknown) (unknown) (no (unknown) (unknown) 04/28/22 04/28/22 (units (unknown) date) 04/28/22 unknown) Range/Units (unknown) (no (unknown) (unknown) 04/28/22 12:29 (units (unknown) date) unknown) (unknown) (no (unknown) (unknown) 04/28/22 12:30 (units (unknown) date) unknown) (unknown) (no (unknown) (unknown) 04/28/22 13:37 (units (unknown) date) unknown) (unknown) (no (unknown) (unknown) 04/28/22 13:41 (units (unknown) date) unknown) (unknown) (no (unknown) (unknown) 04/28/22 14:05 (units (unknown) date) unknown) (unknown) (no (unknown) (unknown) 04/28/22 15:19 (units (unknown) date) unknown) (unknown) (no (unknown) (unknown) 04/28/22 16:20 (units (unknown) date) unknown) (unknown) (no (unknown) (unknown) 04/28/22 1710 (units ( unknown) date) unknown) (unknown) (no (unknown) (unknown) 04/28/22 1730 (units ( unknown) date) unknown) (unknown) (no (unknown) (unknown) 04/28/22 (units (unkno wn) date) Range/Units unknown) (unknown) (no (unknown) (unknown) 04/28/22 (units (unkno wn) date) unknown) (unknown) (no (unknown) (unknown) 1 tab PO Q6H PRN (units (unknown) date) (Reason: pain) unknown) Qty: 10 0RF (unknown) (no (unknown) (unknown) 1 tab PO Q8H PRN (units (unknown) date) (Reason: pain) unknown) Qty: 10 0RF (unknown) (no (unknown) (unknown) 10 mg PO Q6HP (units ( unknown) date) PRNQty: 10 0RF unknown) (unknown) (no (unknown) (unknown) 100 mg PO BID 5 (units (unknown) date) Days Qty: 10 0RF unknown) (unknown) (no (unknown) (unknown) 105, she received (units (unknown) date) her ketorolac at unknown) 16:00 and states that she is already starting (unknown) (no (unknown) (unknown) 12.5 mg PO BID (units (unknown) date) Qty: 10 0RF unknown) (unknown) (no (unknown) (unknown) 129 and ALT of 69 (units (unknown) date) but no tenderness unknown) over her right upper quadrant to palpation. (unknown) (no (unknown) (unknown) 12:20 04/28/22 (units (unknown) date) unknown) (unknown) (no (unknown) (unknown) 12:25 04/28/22 (units (unknown) date) unknown) (unknown) (no (unknown) (unknown) 12:30 04/28/22 (units (unknown) date) unknown) (unknown) (no (unknown) (unknown) 12:30 (units (unkno wn) date) unknown) (unknown) (no (unknown) (unknown) 12:43 04/28/22 (units (unknown) date) unknown) (unknown) (no (unknown) (unknown) 13:00 (units (unkno wn) date) unknown) (unknown) (no (unknown) (unknown) 13:30 04/28/22 (units (unknown) date) unknown) (unknown) (no (unknown) (unknown) 13:41 14:05 14:05 (units (unknown) date) unknown) (unknown) (no (unknown) (unknown) 13:45 04/28/22 (units (unknown) date) unknown) (unknown) (no (unknown) (unknown) 13:45 (units (unkno wn) date) unknown) (unknown) (no (unknown) (unknown) 1415 went to (units (un known) date) recheck patient's unknown) pain, and other her IV has been removed due to it (unknown) (no (unknown) (unknown) 14:00 04/28/22 (units (unknown) date) unknown) (unknown) (no (unknown) (unknown) 14:30 04/28/22 (units (unknown) date) unknown) (unknown) (no (unknown) (unknown) 15:00 (units (unkno wn) date) unknown) (unknown) (no (unknown) (unknown) 15:19 (units (unkno wn) date) unknown) (unknown) (no (unknown) (unknown) 15:30 04/28/22 (units (unknown) date) unknown) (unknown) (no (unknown) (unknown) 16:00 (units (unkno wn) date) unknown) (unknown) (no (unknown) (unknown) 16:01 04/28/22 (units (unknown) date) unknown) (unknown) (no (unknown) (unknown) 16:30 04/28/22 (units (unknown) date) unknown) (unknown) (no (unknown) (unknown) 16:37 04/28/22 (units (unknown) date) unknown) (unknown) (no (unknown) (unknown) 16:37 (units (unkno wn) date) unknown) (unknown) (no (unknown) (unknown) 2 mg PO Q6HP (units (u nknown) date) PRNQty: 8 0RF unknown) (unknown) (no (unknown) (unknown) 20 mg PO QAM Qty: (units (unknown) date) 3 0RF unknown) (unknown) (no (unknown) (unknown) 200 mg PO QPC PRN (units (unknown) date) (Reason: pain) unknown) Qty: 7 0RF (unknown) (no (unknown) (unknown) 25 mg PO Q6HP (units ( unknown) date) PRNQty: 10 0RF unknown) (unknown) (no (unknown) (unknown) 98%. Patient (units (u nknown) date) received pain unknown) medication in route and caused her O2 sats drop (unknown) (no (unknown) (unknown) ? (units (unkno wn) date) unknown) (unknown) (no (unknown) (unknown) ALT (<35) IU/L (units (unknown) date) unknown) (unknown) (no (unknown) (unknown) ALT 69 H (<35) (units (unknown) date) IU/L unknown) (unknown) (no (unknown) (unknown) ANTIBIOTICS)] (units ( unknown) date) unknown) (unknown) (no (unknown) (unknown) AST (14-36) IU/L (units (unknown) date) unknown) (unknown) (no (unknown) (unknown) AST 129 H (14-36) (units (unknown) date) IU/L unknown) (unknown) (no (unknown) (unknown) Activity (units (unkno wn) date) Restrictions/Addit unknown) ional Instructions: (unknown) (no (unknown) (unknown) Acute dehydration (units (unknown) date) unknown) (unknown) (no (unknown) (unknown) Age/Sex: 41 / F (units (unknown) date) unknown) (unknown) (no (unknown) (unknown) Albumin (3.5-5.0) (units (unknown) date) g/dL unknown) (unknown) (no (unknown) (unknown) Albumin 4.6 (units (un known) date) (3.5-5.0) g/dL unknown) (unknown) (no (unknown) (unknown) Albumin/Globulin (units (unknown) date) Ratio (1.0-2.8) unknown) (unknown) (no (unknown) (unknown) Albumin/Globulin (units (unknown) date) Ratio 1.2 unknown) (1.0-2.8) (unknown) (no (unknown) (unknown) Alkaline (units (unkno wn) date) Phosphatase unknown) (38-126) U/L (unknown) (no (unknown) (unknown) Alkaline (units (unkno wn) date) Phosphatase 143 H unknown) (38-126) U/L (unknown) (no (unknown) (unknown) Allergies (units (unkn own) date) unknown) (unknown) (no (unknown) (unknown) Allergy/AdvReac (units (unknown) date) Type Severity unknown) Reaction Status Date / Time (unknown) (no (unknown) (unknown) Mather] (units (unk nown) date) unknown) (unknown) (no (unknown) (unknown) Antibiotics) (units (u nknown) date) ITCHING unknown) (unknown) (no (unknown) (unknown) Approved by: (units (u nknown) date) Dolly Larsen M.D. unknown) on 04/28/2022 at 13:11 ? (unknown) (no (unknown) (unknown) Approved by: (units (u nknown) date) doc Vitale M.D. on 04/28/2022 at 13:06 ? (unknown) (no (unknown) (unknown) BUN (7-17) mg/dL (units (unknown) date) unknown) (unknown) (no (unknown) (unknown) BUN 8 (7-17) (units (u nknown) date) mg/dL unknown) (unknown) (no (unknown) (unknown) BUN/Creatinine (units (unknown) date) Ratio (6-22) unknown) (unknown) (no (unknown) (unknown) BUN/Creatinine (units (unknown) date) Ratio 24.2 H unknown) (6-22) (unknown) (no (unknown) (unknown) Baso # (Auto) (units ( unknown) date) (0-100) /uL unknown) (unknown) (no (unknown) (unknown) Baso # (Auto) 0 (units (unknown) date) (0-100) /uL unknown) (unknown) (no (unknown) (unknown) Baso % (Auto) (units ( unknown) date) (0-2) % unknown) (unknown) (no (unknown) (unknown) Baso % (Auto) 0.4 (units (unknown) date) (0-2) % unknown) (unknown) (no (unknown) (unknown) Bedside Urine (units ( unknown) date) Bilirubin - unknown) Negative (unknown) (no (unknown) (unknown) Bedside Urine (units ( unknown) date) Glucose 1000 mg/dl unknown) (unknown) (no (unknown) (unknown) Bedside Urine (units ( unknown) date) Ketone +/- 5 unknown) (unknown) (no (unknown) (unknown) Bedside Urine (units ( unknown) date) Leukocytes - unknown) Negative (unknown) (no (unknown) (unknown) Bedside Urine (units ( unknown) date) Nitrite - Negative unknown) (unknown) (no (unknown) (unknown) Bedside Urine (units ( unknown) date) Occult Blood - unknown) Negative (unknown) (no (unknown) (unknown) Bedside Urine (units ( unknown) date) Protein +/- 15 unknown) (unknown) (no (unknown) (unknown) Bedside Urine (units ( unknown) date) Urobilinogen - unknown) Negative (unknown) (no (unknown) (unknown) Bedside Urine pH (units (unknown) date) 6.0 unknown) (unknown) (no (unknown) (unknown) Bipolar 1 (units (unkn own) date) disorder unknown) (unknown) (no (unknown) (unknown) Blood Pressure (units (unknown) date) 127/74 unknown) (unknown) (no (unknown) (unknown) Blood Pressure (units (unknown) date) 133/92 H 04/28/22 unknown) 12:20 (unknown) (no (unknown) (unknown) Blood Pressure (units (unknown) date) 133/92 H 138/88 unknown) (unknown) (no (unknown) (unknown) Blood Pressure (units (unknown) date) 152/81 H unknown) (unknown) (no (unknown) (unknown) Blood Pressure (units (unknown) date) unknown) (unknown) (no (unknown) (unknown) Bones and chest (units (unknown) date) wall:? No unknown) fractures or dislocations.? No suspicious bony (unknown) (no (unknown) (unknown) Bones:? No (units (unk nown) date) fractures or unknown) dislocations.? Pelvic ring appears intact.? No (unknown) (no (unknown) (unknown) C-Reactive (units (unk nown) date) Protein (<1.0) unknown) mg/dL (unknown) (no (unknown) (unknown) C-Reactive (units (unk nown) date) Protein 1.6 H unknown) (<1.0) mg/dL (unknown) (no (unknown) (unknown) CBC Auto Diff (units ( unknown) date) [Complete Blood unknown) Count AUTO DIFF] Stat (unknown) (no (unknown) (unknown) CMP (units (unkno wn) date) [Comprehensive unknown) Metabolic Panel] Stat (unknown) (no (unknown) (unknown) COMPARISON:? (units (u nknown) date) None. unknown) (unknown) (no (unknown) (unknown) CRP [C-Reactive (units (unknown) date) Protein Quant] unknown) Stat (unknown) (no (unknown) (unknown) Calcium (units (unkno wn) date) (8.4-10.2) mg/dL unknown) (unknown) (no (unknown) (unknown) Calcium 9.1 (units (un known) date) (8.4-10.2) mg/dL unknown) (unknown) (no (unknown) (unknown) Carbon Dioxide (units (unknown) date) (22-32) mmol/L unknown) (unknown) (no (unknown) (unknown) Carbon Dioxide 24 (units (unknown) date) (22-32) mmol/L unknown) (unknown) (no (unknown) (unknown) Cardiovascular (units (unknown) date) tachycardic rate unknown) and regular rhythm, no peripheral edema, warm (unknown) (no (unknown) (unknown) Chest x-ray: (units (u nknown) date) unknown) (unknown) (no (unknown) (unknown) Chief Complaint: (units (unknown) date) Fall onto her unknown) right side with hip pain (unknown) (no (unknown) (unknown) Chief Complaint: (units (unknown) date) Fall unknown) (unknown) (no (unknown) (unknown) Chloride (98-107) (units (unknown) date) mmol/L unknown) (unknown) (no (unknown) (unknown) Chloride 101 (units (u nknown) date) (98-107) mmol/L unknown) (unknown) (no (unknown) (unknown) Clinical (units (unkno wn) date) Impression: unknown) (unknown) (no (unknown) (unknown) Clinical decision (units (unknown) date) rules or scores unknown) evaluated: [place] and [place] head CT rule (unknown) (no (unknown) (unknown) Cosign (units (unkno wn) date) unknown) (unknown) (no (unknown) (unknown) Course of care (units (unknown) date) and unknown) re-evaluations: (unknown) (no (unknown) (unknown) Course (units (unkno wn) date) unknown) (unknown) (no (unknown) (unknown) Covid-19 + FLU (units (unknown) date) A/B + RSV - PCR unknown) Stat (unknown) (no (unknown) (unknown) Creatinine (units (unk nown) date) (0.52-1.04) mg/dL unknown) (unknown) (no (unknown) (unknown) Creatinine 0.33 L (units (unknown) date) (0.52-1.04) mg/dL unknown) (unknown) (no (unknown) (unknown) Currently she is (units (unknown) date) wearing 2 L nasal unknown) cannula but her pulse oximeter is reading (unknown) (no (unknown) (unknown) DIARRHEA, (units (unkn own) date) unknown) (unknown) (no (unknown) (unknown) : 1980 (units (unknown) date) Acct:[id number] unknown) (unknown) (no (unknown) (unknown) Date of Service: (units (unknown) date) 04/28/22 unknown) (unknown) (no (unknown) (unknown) Departure (units (unkn own) date) unknown) (unknown) (no (unknown) (unknown) Depression (units (unk nown) date) unknown) (unknown) (no (unknown) (unknown) Dictated by: (units (u nknown) date) Dolly Larsen M.D. unknown) on 04/28/2022 at 13:11 ? ? (unknown) (no (unknown) (unknown) Dictated by: (units (u nknown) date) doc Vitale M.D. on 04/28/2022 at 13:04 ? ? (unknown) (no (unknown) (unknown) Differential (units (u nknown) date) diagnoses include unknown) but are not limited to: Muscular Sprain/strain, (unknown) (no (unknown) (unknown) Dilaudid at home (units (unknown) date) for pain although unknown) it appeared as if she did as her medications (unknown) (no (unknown) (unknown) Diphenhydramine (units (unknown) date) HCl unknown) (Diphenhydramine 50 Mg/Ml Vial) 25 mg IV NOW ONE (unknown) (no (unknown) (unknown) Discharge Plan (units (unknown) date) unknown) (unknown) (no (unknown) (unknown) Discontinued (units (u nknown) date) Medications unknown) (unknown) (no (unknown) (unknown) Documented By: AT (units (unknown) date) unknown) (unknown) (no (unknown) (unknown) Dr Kilpatrick Co-Sign (units (unknown) date) Statement: I was unknown) available for consultation during this (unknown) (no (unknown) (unknown) ECG Data (units (unkno wn) date) unknown) (unknown) (no (unknown) (unknown) ED Attending (units (u nknown) date) Cosignature unknown) Attestation: (unknown) (no (unknown) (unknown) ED Orders (units (unkn own) date) unknown) (unknown) (no (unknown) (unknown) EKG independently (units (unknown) date) reviewed by myself unknown) at [1340 reveals normal sinus rhythm at (unknown) (no (unknown) (unknown) EKG-12 Lead Stat (units (unknown) date) unknown) (unknown) (no (unknown) (unknown) ER Physician: (units ( unknown) date) Cassy Chan unknown) [employer]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) (no (unknown) (unknown) Emergency Report (units (unknown) date) unknown) (unknown) (no (unknown) (unknown) Eos # (Auto) (units (u nknown) date) (0-450) /uL unknown) (unknown) (no (unknown) (unknown) Eos # (Auto) 200 (units (unknown) date) (0-450) /uL unknown) (unknown) (no (unknown) (unknown) Eos % (Auto) (units (u nknown) date) (2-4) % unknown) (unknown) (no (unknown) (unknown) Eos % (Auto) 2.2 (units (unknown) date) (2-4) % unknown) (unknown) (no (unknown) (unknown) Esterase (units (unkno wn) date) unknown) (unknown) (no (unknown) (unknown) Estimated GFR > (units (unknown) date) 60 (>60) mL/min unknown) (unknown) (no (unknown) (unknown) Estimated GFR (units ( unknown) date) (>60) mL/min unknown) (unknown) (no (unknown) (unknown) Exam Narrative: (units (unknown) date) unknown) (unknown) (no (unknown) (unknown) Exam (units (o wn) date) unknown) (unknown) (no (unknown) (unknown) Extremity x-ray (units (unknown) date) #2: unknown) (unknown) (no (unknown) (unknown) FINDINGS:? (units (unk n) date) unknown) (unknown) (no (unknown) (unknown) Fosfomycin (units () ) Tromethamine unknown) (Fosfomycin 3 Gm Packet) 3 gm PO NOW ONE (unknown) (no (unknown) (unknown) GI: abdomen soft, (units (unknown) date) nontender to unknown) palpation, nondistended, without masses, rebound (unknown) (no (unknown) (unknown) General (units (unkno wn) date) unknown) (unknown) (no (unknown) (unknown) General: (units (o wn) date) cooperative, unknown) comfortable, in no acute distress, well groomed, afebrile (unknown) (no (unknown) (unknown) Globulin (units (o wn) date) (1.7-4.1) g/dL unknown) (unknown) (no (unknown) (unknown) Globulin 3.9 (units (u nknown) date) (1.7-4.1) g/dL unknown) (unknown) (no (unknown) (unknown) Glucose (70-100) (units (unknown) date) mg/dL unknown) (unknown) (no (unknown) (unknown) Glucose 170 H (units ( unknown) date) (70-100) mg/dL unknown) (unknown) (no (unknown) (unknown) HEADACHE (units (unkno wn) date) unknown) (unknown) (no (unknown) (unknown) HEENT: (units (o wn) date) symmetrical facial unknown) expressions, moist mucous membranes (unknown) (no (unknown) (unknown) HPI - Fall (units (unk nown) date) unknown) (unknown) (no (unknown) (unknown) HPI Narrative: (units (unknown) date) unknown) (unknown) (no (unknown) (unknown) Hct (36-46) % (units ( unknown) date) unknown) (unknown) (no (unknown) (unknown) Hct 40.1 (36-46) (units (unknown) date) % unknown) (unknown) (no (unknown) (unknown) Her pain improved (units (unknown) date) after those unknown) medications. Patient denies history of taking (unknown) (no (unknown) (unknown) Hgb (12.0-16.0) (units (unknown) date) g/dL unknown) (unknown) (no (unknown) (unknown) Hgb 13.2 (units (unkno wn) date) (12.0-16.0) g/dL unknown) (unknown) (no (unknown) (unknown) History of (units (unk nown) date) Present Illness unknown) (unknown) (no (unknown) (unknown) Hydromorphone HCl (units (unknown) date) (Hydromorphone 0.5 unknown) Mg Inj) 0.5 mg IV NOW ONE (unknown) (no (unknown) (unknown) Hydromorphone HCl (units (unknown) date) (Hydromorphone 2 unknown) Mg Tablet) 2 mg PO NOW ONE (unknown) (no (unknown) (unknown) I evaluated the (units (unknown) date) patient and found unknown) her to have rectal tone. (unknown) (no (unknown) (unknown) I have reviewed (units (unknown) date) the patient's unknown) vital signs and nursing notes as well as prior (unknown) (no (unknown) (unknown) IMPRESSION:? No (units (unknown) date) trauma found, no unknown) pneumothorax identified. (unknown) (no (unknown) (unknown) IMPRESSION:? No (units (unknown) date) visualized acute unknown) fracture or dislocation. However, if clinical (unknown) (no (unknown) (unknown) INDICATIONS:? (units ( unknown) date) Fall unknown) (unknown) (no (unknown) (unknown) INFECTION (units (unkn own) date) unknown) (unknown) (no (unknown) (unknown) ITCHING (units (unkno wn) date) unknown) (unknown) (no (unknown) (unknown) Imaging Data (units (u nknown) date) unknown) (unknown) (no (unknown) (unknown) Independently (units ( unknown) date) reviewed imaging unknown) including: Right hip and right ribs x-ray (unknown) (no (unknown) (unknown) Influenza A (units (un known) date) (RT-PCR) unknown) (NEGATIVE) (unknown) (no (unknown) (unknown) Influenza A (units (un known) date) (RT-PCR) Flu a unknown) negative (NEGATIVE) (unknown) (no (unknown) (unknown) Influenza B (units (un known) date) (RT-PCR) unknown) (NEGATIVE) (unknown) (no (unknown) (unknown) Influenza B (units (un known) date) (RT-PCR) Flu b unknown) negative (NEGATIVE) (unknown) (no (unknown) (unknown) Initial Vital (units ( unknown) date) Signs unknown) (unknown) (no (unknown) (unknown) Initial Vital (units ( unknown) date) Signs: unknown) (unknown) (no (unknown) (unknown) Instructions: DI (units (unknown) date) for Urinary Tract unknown) Infection (UTI), How to Prevent Falls (unknown) (no (unknown) (unknown) Interpretation: (units (unknown) date) unknown) (unknown) (no (unknown) (unknown) [facility] (units (unknown) date) [address] unknown) [place] [address] (unknown) (no (unknown) (unknown) Ketorolac (units (unkn own) date) Tromethamine unknown) (Ketorolac 30 Mg/Ml Vial) 15 mg IV NOW ONE (unknown) (no (unknown) (unknown) Ketorolac (units (unkn own) date) Tromethamine unknown) (Ketorolac 30 Mg/Ml Vial) 30 mg IM NOW ONE (unknown) (no (unknown) (unknown) Lab Data (units (unkno wn) date) unknown) (unknown) (no (unknown) (unknown) Lab Results (units (un known) date) unknown) (unknown) (no (unknown) (unknown) Lab test results (units (unknown) date) independently unknown) reviewed, pertinent findings: Respiratory panel (unknown) (no (unknown) (unknown) Labs: (units (unkno wn) date) unknown) (unknown) (no (unknown) (unknown) Last Admin: (units (un known) date) 04/28/22 14:19 unknown) Dose: Not Given (unknown) (no (unknown) (unknown) Last Admin: (units (un known) date) 04/28/22 14:20 unknown) Dose: Not Given (unknown) (no (unknown) (unknown) Last Admin: (units (un known) date) 04/28/22 14:29 unknown) Dose: 12.5 mg (unknown) (no (unknown) (unknown) Last Admin: (units (un known) date) 04/28/22 14:29 unknown) Dose: 2 mg (unknown) (no (unknown) (unknown) Last Admin: (units (un known) date) 04/28/22 14:30 unknown) Dose: 750 mg (unknown) (no (unknown) (unknown) Last Admin: (units (un known) date) 04/28/22 16:05 unknown) Dose: 200 mg (unknown) (no (unknown) (unknown) Last Admin: (units (un known) date) 04/28/22 16:05 unknown) Dose: 30 mg (unknown) (no (unknown) (unknown) Last Admin: (units (un known) date) 04/28/22 16:55 unknown) Dose: 100 mg (unknown) (no (unknown) (unknown) Last Admin: (units (un known) date) 04/28/22 17:04 unknown) Dose: Not Given (unknown) (no (unknown) (unknown) Last Admin: (units (un known) date) 04/28/22 17:05 unknown) Dose: Not Given (unknown) (no (unknown) (unknown) Lungs and (units (unkn own) date) pleura:? No unknown) pleural effusions or pneumothorax.? Lungs appear clear.? (unknown) (no (unknown) (unknown) Lymph # (Auto) (units (unknown) date) (2055-0744) /uL unknown) (unknown) (no (unknown) (unknown) Lymph # (Auto) (units (unknown) date) 2600 (7528-0655) unknown) /uL (unknown) (no (unknown) (unknown) Lymph % (Auto) (units (unknown) date) (25-40) % unknown) (unknown) (no (unknown) (unknown) Lymph % (Auto) (units (unknown) date) 39.2 (25-40) % unknown) (unknown) (no (unknown) (unknown) MCH (26-34) PG (units (unknown) date) unknown) (unknown) (no (unknown) (unknown) MCH 25.5 L (units (unk nown) date) (26-34) PG unknown) (unknown) (no (unknown) (unknown) MCHC (30-36) % (units (unknown) date) unknown) (unknown) (no (unknown) (unknown) MCHC 32.8 (30-36) (units (unknown) date) % unknown) (unknown) (no (unknown) (unknown) MCV (80-100) fL (units (unknown) date) unknown) (unknown) (no (unknown) (unknown) MCV 77.6 L (units (unk nown) date) (80-100) fL unknown) (unknown) (no (unknown) (unknown) MDM - Fall (units (unk nown) date) unknown) (unknown) (no (unknown) (unknown) MDM Narrative (units ( unknown) date) unknown) (unknown) (no (unknown) (unknown) MIPS: This (units (unk nown) date) encounter doesn't unknown) have any diagnosis' associated with MIPS criteria. (unknown) (no (unknown) (unknown) MSK: moves all (units (unknown) date) extremities, unknown) neurovascularly intact, no weakness, normal tone, (unknown) (no (unknown) (unknown) Macrobid. Patient (units (unknown) date) does not have unknown) upper urinary symptoms, flank pain or other (unknown) (no (unknown) (unknown) Mediastinum:? (units ( unknown) date) Mediastinal unknown) contours appear normal.? Heart size is normal.? (unknown) (no (unknown) (unknown) Medical History (units (unknown) date) (Updated 04/28/22 unknown) @ 16:24 by Cassy Chan [facility]) (unknown) (no (unknown) (unknown) Medical decision (units (unknown) date) making narrative: unknown) (unknown) (no (unknown) (unknown) Medication (units (unk nown) date) Instructions unknown) Recorded (unknown) (no (unknown) (unknown) Met with the (units (u nknown) date) patient, ordered unknown) her pain medication per her request, she states (unknown) (no (unknown) (unknown) Methocarbamol (units ( unknown) date) (Methocarbamol 500 unknown) Mg Tablet) 750 mg PO NOW ONE (unknown) (no (unknown) (unknown) Metoclopramide (units (unknown) date) HCl unknown) (Metoclopramide 10 Mg/2 Ml Inj) 10 mg IV NOW ONE (unknown) (no (unknown) (unknown) Mode of arrival: (units (unknown) date) EMS unknown) (unknown) (no (unknown) (unknown) [place] # (Auto) (units ( unknown) date) (0-900) /uL unknown) (unknown) (no (unknown) (unknown) [place] # (Auto) 300 (units (unknown) date) (0-900) /uL unknown) (unknown) (no (unknown) (unknown) [place] % (Auto) (units ( unknown) date) (3-14) % unknown) (unknown) (no (unknown) (unknown) [place] % (Auto) 4.4 (units (unknown) date) (3-14) % unknown) (unknown) (no (unknown) (unknown) Narrative (units (unkn own) date) unknown) (unknown) (no (unknown) (unknown) Neuro: normal (units ( unknown) date) speech and unknown) cognition, A+O x3, ambulatory, clear speech (unknown) (no (unknown) (unknown) Neut # (Auto) (units ( unknown) date) (3532-9137) /uL unknown) (unknown) (no (unknown) (unknown) Neut # (Auto) (units ( unknown) date) 3600 (1236-9882) unknown) /uL (unknown) (no (unknown) (unknown) Neut % (Auto) (units ( unknown) date) (50-75) % unknown) (unknown) (no (unknown) (unknown) Neut % (Auto) (units ( unknown) date) 53.8 (50-75) % unknown) (unknown) (no (unknown) (unknown) New (units (unkno wn) date) unknown) (unknown) (no (unknown) (unknown) Night terrors, (units (unknown) date) adult unknown) (unknown) (no (unknown) (unknown) Nitrofurantoin (units (unknown) date) Macrocrystals unknown) (Nitrofurantoin Er 100 Mg Capsule) 100 mg PO NOW (unknown) (no (unknown) (unknown) No Action (units (unkn own) date) unknown) (unknown) (no (unknown) (unknown) ONE (units (unkno wn) date) unknown) (unknown) (no (unknown) (unknown) Ordered UA, (units (un known) date) patient states unknown) that she thinks she can void. (unknown) (no (unknown) (unknown) Ordered: (units (unkno wn) date) unknown) (unknown) (no (unknown) (unknown) Orders (units (unkno wn) date) unknown) (unknown) (no (unknown) (unknown) Overlying soft (units (unknown) date) tissues appear unknown) unremarkable.? (unknown) (no (unknown) (unknown) Oxygen Delivery (units (unknown) date) Method 04/28/22 unknown) 12:20 (unknown) (no (unknown) (unknown) Oxygen Delivery (units (unknown) date) Method Nasal unknown) Cannula Room Air Room Air (unknown) (no (unknown) (unknown) Oxygen Delivery (units (unknown) date) Method Room Air unknown) Nasal Cannula (unknown) (no (unknown) (unknown) Oxygen Delivery (units (unknown) date) Method Room Air unknown) Room Air (unknown) (no (unknown) (unknown) Oxygen Delivery (units (unknown) date) Method Room Air unknown) (unknown) (no (unknown) (unknown) Oxygen Delivery (units (unknown) date) Method unknown) (unknown) (no (unknown) (unknown) Oxygen Flow Rate (units (unknown) date) 1 unknown) (unknown) (no (unknown) (unknown) Oxygen Flow Rate (units (unknown) date) 2 unknown) (unknown) (no (unknown) (unknown) Oxygen Flow Rate (units (unknown) date) unknown) (unknown) (no (unknown) (unknown) PROCEDURE:? XR (units (unknown) date) HIP W PEL IF DONE unknown) RT 2V (unknown) (no (unknown) (unknown) PROCEDURE:? XR (units (unknown) date) RIBS RT MIN 3V W unknown) CXR 1V (unknown) (no (unknown) (unknown) Patient (units (unkno wn) date) Disposition: Home unknown) (unknown) (no (unknown) (unknown) Patient History (units (unknown) date) unknown) (unknown) (no (unknown) (unknown) Patient is able (units (unknown) date) to ambulate and unknown) ambulated on the monitor with a heart rate of (unknown) (no (unknown) (unknown) Patient is (units (unk nown) date) appropriate for unknown) outpatient management. (unknown) (no (unknown) (unknown) Patient is (units (unk nown) date) sitting up on the unknown) stretcher, appears comfortable, is talkative, (unknown) (no (unknown) (unknown) Patient's heart (units (unknown) date) rate is currently unknown) 97 on the monitor, vitals have not been (unknown) (no (unknown) (unknown) Patient's (units (unkn own) date) symptoms improved unknown) over duration of stay with above-stated therapies. (unknown) (no (unknown) (unknown) Patient's urine (units (unknown) date) microscopy shows unknown) bacteria, urine culture was ordered, no prior (unknown) (no (unknown) (unknown) Patient: (units (unkno wn) date) Leatha Cartwright unknown) MR#: [id number] (unknown) (no (unknown) (unknown) Phenazopyridine (units (unknown) date) HCl unknown) (Phenazopyridine 100 Mg Tablet) 200 mg PO NOW ONE (unknown) (no (unknown) (unknown) Please use as (units ( unknown) date) needed for nausea unknown) and vomiting (unknown) (no (unknown) (unknown) Plt Count (units (unkn own) date) (150-400) X103/uL unknown) (unknown) (no (unknown) (unknown) Plt Count 207 (units ( unknown) date) (150-400) X103/uL unknown) (unknown) (no (unknown) (unknown) Point of Care (units ( unknown) date) Testing unknown) (unknown) (no (unknown) (unknown) Potassium (units (unkn own) date) (3.4-5.1) mmol/L unknown) (unknown) (no (unknown) (unknown) Potassium 3.9 (units ( unknown) date) (3.4-5.1) mmol/L unknown) (unknown) (no (unknown) (unknown) Test (units (unknown) date) Results Negative unknown) (unknown) (no (unknown) (unknown) Prescriptions: (units (unknown) date) unknown) (unknown) (no (unknown) (unknown) Previous Rx's (units ( unknown) date) unknown) (unknown) (no (unknown) (unknown) Procalcitonin (units ( unknown) date) (<0.5) ng/mL unknown) (unknown) (no (unknown) (unknown) Procalcitonin (units ( unknown) date) 0.12 (<0.5) ng/mL unknown) (unknown) (no (unknown) (unknown) Procalcitonin (units ( unknown) date) Stat unknown) (unknown) (no (unknown) (unknown) Promethazine HCl (units (unknown) date) (Promethazine 25 unknown) Mg Tablet) 12.5 mg PO NOW ONE (unknown) (no (unknown) (unknown) Psych: mental (units ( unknown) date) status is grossly unknown) normal, congruent mood, normal affect, pleasant (unknown) (no (unknown) (unknown) Pulse Oximetry (units (unknown) date) 100 04/28/22 12:20 unknown) (unknown) (no (unknown) (unknown) Pulse Oximetry (units (unknown) date) 100 96 unknown) (unknown) (no (unknown) (unknown) Pulse Oximetry 91 (units (unknown) date) 94 95 unknown) (unknown) (no (unknown) (unknown) Pulse Oximetry 94 (units (unknown) date) 96 unknown) (unknown) (no (unknown) (unknown) Pulse Oximetry 96 (units (unknown) date) 93 93 unknown) (unknown) (no (unknown) (unknown) Pulse Oximetry 96 (units (unknown) date) 94 unknown) (unknown) (no (unknown) (unknown) Pulse Oximetry 96 (units (unknown) date) 95 91 unknown) (unknown) (no (unknown) (unknown) Pulse Rate 111 H (units (unknown) date) 105 H 107 H unknown) (unknown) (no (unknown) (unknown) Pulse Rate 111 H (units (unknown) date) 115 H unknown) (unknown) (no (unknown) (unknown) Pulse Rate 112 H (units (unknown) date) 111 H unknown) (unknown) (no (unknown) (unknown) Pulse Rate 114 H (units (unknown) date) 04/28/22 12:20 unknown) (unknown) (no (unknown) (unknown) Pulse Rate 114 H (units (unknown) date) 112 H unknown) (unknown) (no (unknown) (unknown) Pulse Rate 118 H (units (unknown) date) 122 H unknown) (unknown) (no (unknown) (unknown) Pulse Rate 123 H (units (unknown) date) 120 H 122 H unknown) (unknown) (no (unknown) (unknown) Qualifiers: (units (un known) date) unknown) (unknown) (no (unknown) (unknown) Questions are (units ( unknown) date) addressed and unknown) there is agreement with the plan and for follow-up. (unknown) (no (unknown) (unknown) RBC (4.0-5.2) (units ( unknown) date) X106/uL unknown) (unknown) (no (unknown) (unknown) RBC 5.16 (units (unkno wn) date) (4.0-5.2) X106/uL unknown) (unknown) (no (unknown) (unknown) RDW (11.6-14.8) % (units (unknown) date) unknown) (unknown) (no (unknown) (unknown) RDW 15.2 H (units (unk nown) date) (11.6-14.8) % unknown) (unknown) (no (unknown) (unknown) ROS Unobtainable: (units (unknown) date) All systems unknown) reviewed + are unremarkable except as noted in HPI (unknown) (no (unknown) (unknown) RSV (PCR) (units (unkn own) date) (Negative) unknown) (unknown) (no (unknown) (unknown) RSV (PCR) (units (unkn own) date) Negative unknown) (Negative) (unknown) (no (unknown) (unknown) Radiologist's (units ( unknown) date) Impression: unknown) (unknown) (no (unknown) (unknown) Related Data (units (u nknown) date) unknown) (unknown) (no (unknown) (unknown) Respiratory Rate (units (unknown) date) 16 04/28/22 12:20 unknown) (unknown) (no (unknown) (unknown) Respiratory Rate (units (unknown) date) 16 unknown) (unknown) (no (unknown) (unknown) Respiratory Rate (units (unknown) date) 18 unknown) (unknown) (no (unknown) (unknown) Respiratory Rate (units (unknown) date) unknown) (unknown) (no (unknown) (unknown) Respiratory: (units (u nknown) date) normal effort, unknown) able to speak in complete sentences, without (unknown) (no (unknown) (unknown) Review of Systems (units (unknown) date) unknown) (unknown) (no (unknown) (unknown) Reviewed vitals (units (unknown) date) signs and nursing unknown) notes. (unknown) (no (unknown) (unknown) Rx Instructions: (units (unknown) date) unknown) (unknown) (no (unknown) (unknown) SARS-CoV-2 (PCR) (units (unknown) date) (Negative) unknown) (unknown) (no (unknown) (unknown) SARS-CoV-2 (PCR) (units (unknown) date) Negative unknown) (Negative) (unknown) (no (unknown) (unknown) Shared decision (units (unknown) date) making: With the unknown) patient about all of her care. She states (unknown) (no (unknown) (unknown) Signed By: (units (unk nown) date) unknown) (unknown) (no (unknown) (unknown) Skin: brisk (units (un known) date) capillary refill, unknown) without pallor or erythema (unknown) (no (unknown) (unknown) Smoking Status: (units (unknown) date) Former smoker unknown) (unknown) (no (unknown) (unknown) Social History (units (unknown) date) (Reviewed 09/18/18 unknown) @ 10:12 by Roxanne Thomas DO) (unknown) (no (unknown) (unknown) Social (units (unkno wn) date) considerations unknown) that may affect disposition: none (unknown) (no (unknown) (unknown) Sodium (137-145) (units (unknown) date) mmol/L unknown) (unknown) (no (unknown) (unknown) Sodium 139 (units (unk nown) date) (137-145) mmol/L unknown) (unknown) (no (unknown) (unknown) Sodium Chloride (units (unknown) date) (Normal Saline unknown) 0.9%) 1,000 mls @ 1,000 mls/hr IV BOLUS ONE (unknown) (no (unknown) (unknown) Soft tissues:? (units (unknown) date) The visualized unknown) bowel gas pattern is normal.? No suspicious soft (unknown) (no (unknown) (unknown) Source: patient (units (unknown) date) and EMS unknown) (unknown) (no (unknown) (unknown) Stand Alone (units (un known) date) Forms: Patient unknown) Portal/API (unknown) (no (unknown) (unknown) Stated Complaint: (units (unknown) date) R Hip snap crackle unknown) pop (unknown) (no (unknown) (unknown) Stop: 04/28/22 (units (unknown) date) 13:19 unknown) (unknown) (no (unknown) (unknown) Stop: 04/28/22 (units (unknown) date) 13:22 unknown) (unknown) (no (unknown) (unknown) Stop: 04/28/22 (units (unknown) date) 14:13 unknown) (unknown) (no (unknown) (unknown) Stop: 04/28/22 (units (unknown) date) 14:20 unknown) (unknown) (no (unknown) (unknown) Stop: 04/28/22 (units (unknown) date) 15:29 unknown) (unknown) (no (unknown) (unknown) Stop: 04/28/22 (units (unknown) date) 16:23 unknown) (unknown) (no (unknown) (unknown) Stop: 04/28/22 (units (unknown) date) 16:26 unknown) (unknown) (no (unknown) (unknown) Stop: 04/28/22 (units (unknown) date) 16:39 unknown) (unknown) (no (unknown) (unknown) Substance Use (units ( unknown) date) Type: does not use unknown) (unknown) (no (unknown) (unknown) Sulfa (units (unkno wn) date) (Sulfonamide unknown) Allergy Severe NAUSEA, Verified 04/28/22 12:26 (unknown) (no (unknown) (unknown) Surgical changes (units (unknown) date) and devices:? unknown) None.? (unknown) (no (unknown) (unknown) TECHNIQUE:? AP (units (unknown) date) pelvis with unknown) lateral view(s) of the right hip(s).? (unknown) (no (unknown) (unknown) TECHNIQUE:? Two (units (unknown) date) views of the right unknown) ribs were acquired, along with a single view (unknown) (no (unknown) (unknown) TING (units (unkno wn) date) unknown) (unknown) (no (unknown) (unknown) Temperature 97.9 (units (unknown) date) F 04/28/22 12:20 unknown) (unknown) (no (unknown) (unknown) Temperature 97.9 (units (unknown) date) F unknown) (unknown) (no (unknown) (unknown) Temperature (units (un known) date) unknown) (unknown) (no (unknown) (unknown) This is a (units (unkn own) date) 41-year-old female unknown) with history of bipolar 1 who presents to the (unknown) (no (unknown) (unknown) Time Seen by (units (u nknown) date) Provider: 04/28/22 unknown) 12:55 (unknown) (no (unknown) (unknown) Total Bilirubin (units (unknown) date) (0.2-1.3) mg/dL unknown) (unknown) (no (unknown) (unknown) Total Bilirubin (units (unknown) date) 0.6 (0.2-1.3) unknown) mg/dL (unknown) (no (unknown) (unknown) Total Protein (units ( unknown) date) (6.3-8.2) g/dL unknown) (unknown) (no (unknown) (unknown) Total Protein 8.5 (units (unknown) date) H (6.3-8.2) g/dL unknown) (unknown) (no (unknown) (unknown) UTI (urinary (units (u nknown) date) tract infection) unknown) (unknown) (no (unknown) (unknown) Ur Culture (units (unk nown) date) Indicated? Cult unknown) not indicated (unknown) (no (unknown) (unknown) Ur Culture (units (unk nown) date) Indicated? unknown) (unknown) (no (unknown) (unknown) Ur Squamous Epith (units (unknown) date) Cells (0-5/HPF) unknown) (unknown) (no (unknown) (unknown) Ur Squamous Epith (units (unknown) date) Cells 1-5 /hpf unknown) (0-5/HPF) (unknown) (no (unknown) (unknown) Urinary tract (units ( unknown) date) infection type: unknown) acute cystitis Hematuria presence: without (unknown) (no (unknown) (unknown) Urine Bacteria (units (unknown) date) (None) unknown) (unknown) (no (unknown) (unknown) Urine Bacteria (units (unknown) date) Many (>30) H unknown) (None) (unknown) (no (unknown) (unknown) Urine Culture (units ( unknown) date) Stat unknown) (unknown) (no (unknown) (unknown) Urine Dip (units (unkn own) date) unknown) (unknown) (no (unknown) (unknown) Urine Microscopic (units (unknown) date) Stat unknown) (unknown) (no (unknown) (unknown) Urine RBC (units (unkn own) date) (0-5/HPF) unknown) (unknown) (no (unknown) (unknown) Urine RBC None (units (unknown) date) seen (0-5/HPF) unknown) (unknown) (no (unknown) (unknown) Urine Specific (units (unknown) date) [place] 1.025 unknown) (unknown) (no (unknown) (unknown) Urine WBC (units (unkn own) date) (0-5/HPF) unknown) (unknown) (no (unknown) (unknown) Urine WBC 0-1/hpf (units (unknown) date) (0-5/HPF) unknown) (unknown) (no (unknown) (unknown) Vital Signs - 8 (units (unknown) date) hr unknown) (unknown) (no (unknown) (unknown) Vital Signs (units (un known) date) unknown) (unknown) (no (unknown) (unknown) Vital signs: (units (u nknown) date) unknown) (unknown) (no (unknown) (unknown) WBC (4.5-11.0) (units (unknown) date) X103/uL unknown) (unknown) (no (unknown) (unknown) WBC 6.7 (units (unkno wn) date) (4.5-11.0) X103/uL unknown) (unknown) (no (unknown) (unknown) XR hip w pel if (units (unknown) date) done RT 2V Stat unknown) (unknown) (no (unknown) (unknown) XR ribs RT min 3V (units (unknown) date) w CXR1V Stat unknown) (unknown) (no (unknown) (unknown) Zofran. She is (units (unknown) date) slurring her words unknown) mildly but is sitting upright, without (unknown) (no (unknown) (unknown) [ ] New (units (unkno wn) date) medication written unknown) as a paper prescription (unknown) (no (unknown) (unknown) [ ] No new (units (unk nown) date) medications given unknown) (unknown) (no (unknown) (unknown) [117] bpm with (units (unknown) date) regular axis and unknown) prolonged QT 450 milliseconds without other (unknown) (no (unknown) (unknown) [Embedded Image (units (unknown) date) Not Available] unknown) (unknown) (no (unknown) (unknown) [SULFA (units (unkno wn) date) (SULFONAMIDE unknown) (unknown) (no (unknown) (unknown) [x ] New (units (o wn) date) medication unknown) prescriptions sent to your pharmacy: [ [facility] (unknown) (no (unknown) (unknown) a urinary tract (units (unknown) date) infection. She unknown) states that she is allergic to multiple (unknown) (no (unknown) (unknown) administrative (units (unknown) date) purposes only. I unknown) did not have direct contact with this patient (unknown) (no (unknown) (unknown) alcohol intake (units (unknown) date) frequency: unknown) holidays/special occasions only (unknown) (no (unknown) (unknown) alert. (units (unkno wn) date) unknown) (unknown) (no (unknown) (unknown) also states that (units (unknown) date) Zofran is not unknown) adequate for nausea and she needs something (unknown) (no (unknown) (unknown) amoxicillin (units (un known) date) [AMOXICILLIN] unknown) AdvReac Intermediate YEAST Verified 04/28/22 12:26 (unknown) (no (unknown) (unknown) anaphylaxis, (units (u nknown) date) states that she unknown) uses Xanax and muscle relaxers for pain at. She (unknown) (no (unknown) (unknown) and below (units (unkn own) date) unknown) (unknown) (no (unknown) (unknown) and cooperative (units (unknown) date) unknown) (unknown) (no (unknown) (unknown) and/or pain (units (un known) date) persist, short unknown) interval imaging followup in 7-10 days is (unknown) (no (unknown) (unknown) antibiotic is not (units (unknown) date) appropriate for unknown) your urine infection. Thank you for waiting (unknown) (no (unknown) (unknown) antibiotics, (units (u nknown) date) states she is unknown) allergic to Percocet with itching but does not have (unknown) (no (unknown) (unknown) any sensation (units ( unknown) date) changes, states unknown) that after the fall she was able to get up with (unknown) (no (unknown) (unknown) appointment. Let (units (unknown) date) them know you were unknown) seen in the Emergency Department and that we (unknown) (no (unknown) (unknown) asked that you be (units (unknown) date) seen for unknown) follow-up. We will electronically transmit a record (unknown) (no (unknown) (unknown) bladder (units (unkno wn) date) stimulator, denies unknown) history of low back pain, has documented history (unknown) (no (unknown) (unknown) calcifications.? (units (unknown) date) unknown) (unknown) (no (unknown) (unknown) capsule (units (unkno wn) date) (Macrobid) unknown) (unknown) (no (unknown) (unknown) cephalexin (units (unk nown) date) [CEPHALEXIN] unknown) Allergy Unknown NAUSEA/VOMI Verified 04/28/22 12:26 (unknown) (no (unknown) (unknown) changes. (units (unkno wn) date) unknown) (unknown) (no (unknown) (unknown) chest.? (units (unkno wn) date) unknown) (unknown) (no (unknown) (unknown) codeine [CODEINE] (units (unknown) date) Allergy Mild unknown) NAUSEA, Verified 04/28/22 12:26 (unknown) (no (unknown) (unknown) concern (units (unkno wn) date) unknown) (unknown) (no (unknown) (unknown) concerning (units (unk nown) date) symptoms, such as unknown) [fever greater than 101F, chills, worsening pain, (unknown) (no (unknown) (unknown) de onto her right (units (unknown) date) side and now unknown) complains of right-sided hip pain. She states (unknown) (no (unknown) (unknown) denies any (units (unk nown) date) surgeries over unknown) lower extremities in the past. She has history of (unknown) (no (unknown) (unknown) denies (units (unkno wn) date) diaphoresis, unknown) shortness of breath, difficulty breathing, chest pain, (unknown) (no (unknown) (unknown) department, (units (un known) date) please use your unknown) home pain medications to treat her pain, I have (unknown) (no (unknown) (unknown) during this (units (un known) date) visit. They were unknown) seen independently by the [facility]. (unknown) (no (unknown) (unknown) ecchymosis or (units ( unknown) date) obvious deformity, unknown) no pain to right hip with axial load from foot (unknown) (no (unknown) (unknown) electrolyte (units (un known) date) abnormalities of unknown) concern, mild increase of alk-phos to 143, AST of (unknown) (no (unknown) (unknown) emergency (units (unkno wn) date) department via EMS unknown) after a mechanical fall where she was walking outsi (unknown) (no (unknown) (unknown) establish care (units (unknown) date) with one of the unknown) [facility] primary care providers. (unknown) (no (unknown) (unknown) extremities (units (un known) date) unknown) (unknown) (no (unknown) (unknown) given you some (units ( unknown) date) nausea medication unknown) to help you through this, please follow-up with (unknown) (no (unknown) (unknown) have any emesis, (units (unknown) date) does not feel neck unknown) pain, denies LOC. (unknown) (no (unknown) (unknown) hematuria (units (unkn own) date) Qualified Code(s): unknown) N30.00 - Acute cystitis without hematuria (unknown) (no (unknown) (unknown) hip fracture, (units ( unknown) date) acute cystitis, unknown) pyelonephritis, PID, nephrolithiasis, obstructive (unknown) (no (unknown) (unknown) hip. Patient has (units (unknown) date) a history of unknown) bipolar disorder, has had emotional episodes in (unknown) (no (unknown) (unknown) hydrocodone 5 (units ( unknown) date) mg-acetaminophen unknown) 325 1 tab PO Q6H PRN pain #10 tabs 09/18/18 (unknown) (no (unknown) (unknown) hydrocodone-aceta (units (unknown) date) minophen [[place]] unknown) 5-325 mg tablet (unknown) (no (unknown) (unknown) hydromorphone 2 (units (unknown) date) mg tablet 2 mg PO unknown) Q6HP PRN #8 tabs 01/11/16 (unknown) (no (unknown) (unknown) hydromorphone (units ( unknown) date) [Dilaudid] 2 MG unknown) tablet (unknown) (no (unknown) (unknown) hyperventilating, (units (unknown) date) her heart rate unknown) goes up, she complains never having (unknown) (no (unknown) (unknown) hypoxia, wearing (units (unknown) date) 2 L nasal cannula unknown) as she became sedated in the ambulance EN (unknown) (no (unknown) (unknown) incontinence (units (u nknown) date) before. She says unknown) that she did not feel it coming on. She states (unknown) (no (unknown) (unknown) injury without (units (unknown) date) fracture, or other unknown) abnormality visualized on x-ray to your ribs (unknown) (no (unknown) (unknown) interval changes. (units (unknown) date) No STEMI, ST unknown) segment changes, arrhythmia, or acute ischemic (unknown) (no (unknown) (unknown) is negative for (units (unknown) date) tested viruses, no unknown) leukocytosis or anemia, no left shift, no (unknown) (no (unknown) (unknown) ketorolac 10 MG (units (unknown) date) tablet unknown) (unknown) (no (unknown) (unknown) ketorolac 10 mg (units (unknown) date) tablet 10 mg PO unknown) Q6HP PRN #10 tabs 01/11/16 (unknown) (no (unknown) (unknown) kidney stone and (units (unknown) date) hematuria in the unknown) past and endorses that she feels like she has (unknown) (no (unknown) (unknown) lesions.? (units (unkn own) date) unknown) (unknown) (no (unknown) (unknown) levofloxacin (units (u nknown) date) [LEVOFLOXACIN] unknown) Allergy Unknown N/V, Verified 04/28/22 12:26 (unknown) (no (unknown) (unknown) levofloxacin, and (units (unknown) date) amoxicillin, will unknown) treat with fosfomycin x1 and sent home with (unknown) (no (unknown) (unknown) mg tablet ([place]) (units (unknown) date) unknown) (unknown) (no (unknown) (unknown) mg tablet (units (unkn own) date) (Percocet) unknown) (unknown) (no (unknown) (unknown) monohydrate/macro (units (unknown) date) crystals 100 mg unknown) (unknown) (no (unknown) (unknown) motion of her (units ( unknown) date) right knee and unknown) right foot with good perfusion, palpable pedal (unknown) (no (unknown) (unknown) must administer (units (unknown) date) with a meal/food unknown) (unknown) (no (unknown) (unknown) nitrofurantoin (units (unknown) date) 100 mg PO BID 5 unknown) days #10 caps 04/28/22 (unknown) (no (unknown) (unknown) nitrofurantoin (units (unknown) date) monohyd/m-cryst unknown) [Macrobid] 100 mg capsule (unknown) (no (unknown) (unknown) nontender over (units (unknown) date) spine, patient unknown) complains of pain to the right iliac crest with (unknown) (no (unknown) (unknown) not working. (units (u nknown) date) Patient tells me unknown) that she was incontinent. She starts (unknown) (no (unknown) (unknown) occult injury (units ( unknown) date) cannot be unknown) definitively excluded. (unknown) (no (unknown) (unknown) of today's note (units (unknown) date) if your PCP is in unknown) our system (unknown) (no (unknown) (unknown) or pelvis. Your (units (unknown) date) lab work overall unknown) is unremarkable which is a great thing, please (unknown) (no (unknown) (unknown) oxycodone-acetami (units (unknown) date) nophen 5 mg-325 1 unknown) tab PO Q8H PRN pain #10 tabs 04/28/22 (unknown) (no (unknown) (unknown) oxycodone-acetami (units (unknown) date) nophen [Percocet] unknown) 5-325 mg tablet (unknown) (no (unknown) (unknown) pain. (units (unkno wn) date) unknown) (unknown) (no (unknown) (unknown) palpation, full (units (unknown) date) range of motion of unknown) right hip is without weakness. Full range of (unknown) (no (unknown) (unknown) patient's (units (unkn own) date) emergency unknown) department visit. This chart is signed by myself for (unknown) (no (unknown) (unknown) persistent (units (unk nown) date) vomiting or other unknown) bothersome symptoms]. (unknown) (no (unknown) (unknown) phenazopyridine (units (unknown) date) 200 mg tablet 200 unknown) mg PO QPC PRN pain 6 doses #7 04/28/22 (unknown) (no (unknown) (unknown) phenazopyridine (units (unknown) date) [Pyridium] 200 mg unknown) tablet (unknown) (no (unknown) (unknown) prednisone 20 MG (units (unknown) date) tablet unknown) (unknown) (no (unknown) (unknown) prednisone 20 mg (units (unknown) date) tablet 20 mg PO unknown) QAM #3 tabs 01/11/16 (unknown) (no (unknown) (unknown) promethazine 12.5 (units (unknown) date) mg tablet 12.5 mg unknown) PO BID #10 tabs 04/28/22 (unknown) (no (unknown) (unknown) promethazine 12.5 (units (unknown) date) mg tablet unknown) (unknown) (no (unknown) (unknown) promethazine 25 (units (unknown) date) MG tablet unknown) (unknown) (no (unknown) (unknown) promethazine 25 (units (unknown) date) mg tablet 25 mg PO unknown) Q6HP PRN #10 tabs 05/12/16 (unknown) (no (unknown) (unknown) promethazine 25 (units (unknown) date) mg tablet 25 mg PO unknown) Q6HP PRN #10 tabs 01/11/16 (unknown) (no (unknown) (unknown) pulses. Brisk cap (units (unknown) date) refill in her unknown) toes. She denies any sensation deficit. No (unknown) (no (unknown) (unknown) received 200 mcgs (units (unknown) date) of fentanyl EN unknown) route. Patient denies any in her head, did not (unknown) (no (unknown) (unknown) received a fluid (units (unknown) date) bolus, is starting unknown) to tolerate p.o., is without severe pain at (unknown) (no (unknown) (unknown) recommended, as (units (unknown) date) unknown) (unknown) (no (unknown) (unknown) records if (units (unk nown) date) available. unknown) (unknown) (no (unknown) (unknown) refuses the (units (un known) date) testing as she unknown) denies having any symptoms of vaginitis or pelvic (unknown) (no (unknown) (unknown) route after (units (un known) date) receiving unknown) fentanyl. No concerning findings on exam of her right (unknown) (no (unknown) (unknown) she is nauseated (units (unknown) date) but has not had unknown) vomiting and requests something stronger than (unknown) (no (unknown) (unknown) stay hydrated, (units (unknown) date) tomorrow start unknown) taking Macrobid for your bladder infection. If (unknown) (no (unknown) (unknown) stronger. She (units ( unknown) date) states that she is unknown) had a low-grade fever for the last 2 days but (unknown) (no (unknown) (unknown) suspicious bony (units (unknown) date) unknown) (unknown) (no (unknown) (unknown) symptoms at this (units (unknown) date) time. She is unknown) afebrile, her tachycardia has improved, she is (unknown) (no (unknown) (unknown) tenderness or (units ( unknown) date) exquisite unknown) tenderness with exam. No CVA tenderness bilaterally (unknown) (no (unknown) (unknown) that her pain is (units (unknown) date) improved after unknown) medications (unknown) (no (unknown) (unknown) that she is had a (units (unknown) date) history hip pain unknown) with ambulation for the last 2-3 months. She (unknown) (no (unknown) (unknown) that she still (units (unknown) date) needs to void, the unknown) nurse was called. (unknown) (no (unknown) (unknown) the emergency (units ( unknown) date) department and unknown) states that she is extremely anxious and is unable (unknown) (no (unknown) (unknown) the help of 2 (units ( unknown) date) people but states unknown) she was unable to bear weight on this side. (unknown) (no (unknown) (unknown) the urine was (units ( unknown) date) from catheter so unknown) she should not need to complete a wet mount and (unknown) (no (unknown) (unknown) this time, using (units (unknown) date) her phone, unknown) talkative, denies any vaginal discharge, states that (unknown) (no (unknown) (unknown) tissue (units (unkno wn) date) unknown) (unknown) (no (unknown) (unknown) to communicate or (units (unknown) date) do anything at unknown) those times. (unknown) (no (unknown) (unknown) to feel much (units (u nknown) date) better at 16:10. unknown) (unknown) (no (unknown) (unknown) today for all of (units (unknown) date) the tests come unknown) back, I hope you feel better soon. (unknown) (no (unknown) (unknown) tolerate Percocet (units (unknown) date) requests a unknown) prescription for Percocet to go home with. (unknown) (no (unknown) (unknown) updated prior to (units (unknown) date) her discharge. unknown) (unknown) (no (unknown) (unknown) urine cultures on (units (unknown) date) record. Patient unknown) has an allergy to sulfa, cephalexin, (unknown) (no (unknown) (unknown) uropathy, (units (unkn own) date) unknown) (unknown) (no (unknown) (unknown) weakness, (units (unkn own) date) incontinence, unknown) abdominal pain, flank pain or other pain. She denies (unknown) (no (unknown) (unknown) were not (units (unkno wn) date) confirmed or unknown) updated when she came in. She clarified that she can (unknown) (no (unknown) (unknown) wheezing, (units (unkn own) date) stridor, or unknown) abnormal breath sounds. No retractions or tachypnea. (unknown) (no (unknown) (unknown) while she was (units (u nknown) date) lying down, she unknown) was started on this but now is much more awake and (unknown) (no (unknown) (unknown) without (units (unkno wn) date) indication for CT unknown) imaging of C-spine or head (unknown) (no (unknown) (unknown) without (units (unkno wn) date) pneumothorax, unknown) acute fracture or other acute abnormality. (unknown) (no (unknown) (unknown) you have (units (unkno wn) date) worsening of her unknown) symptoms, please come back to the emergency (unknown) (no (unknown) (unknown) your primary care (units (unknown) date) provider for a unknown) test of cure. We will call you if the Result panel 94 (unknown) (no (unknown) (unknown) >100,000 cfu/ml (unkno wn) date) (unknown) (no (unknown) (unknown) GNBGram negative (units (unknown) date) bacilli unknown) (unknown) (no (unknown) (unknown) Identification (units (unknown) date) and Sensitivity to unknown) Follow Result panel 95 (unknown) (no (unknown) (unknown) (no value) (units (unk nown) date) unknown) (unknown) (no (unknown) (unknown) >100,000 cfu/ml (unkno wn) date) (unknown) (no (unknown) (unknown) >=4 (units (unkno wn) date) unknown) (unknown) (no (unknown) (unknown) >=8 (units (unkno wn) date) unknown) (unknown) (no (unknown) (unknown) <=0.25 (units (unkno wn) date) unknown) (unknown) (no (unknown) (unknown) <=0.5 (units (unkno wn) date) unknown) (unknown) (no (unknown) (unknown) <=1 (units (unkno wn) date) unknown) (unknown) (no (unknown) (unknown) <=16 (units (unkno wn) date) unknown) (unknown) (no (unknown) (unknown) <=2 (units (unkno wn) date) unknown) (unknown) (no (unknown) (unknown) <=20 (units (unkno wn) date) unknown) (unknown) (no (unknown) (unknown) <=4 (units (unkno wn) date) unknown) (unknown) (no (unknown) (unknown) ESCCOLEscherichia (units (unknown) date) coli unknown) (unknown) (no (unknown) (unknown) GPCGram positive (units (unknown) date) cocci unknown) (unknown) (no (unknown) (unknown) Identification and (units (unknown) date) Sensitivity to unknown) Follow Result panel 96 (unknown) (no (unknown) (unknown) (no value) (units (unk nown) date) unknown) (unknown) (no (unknown) (unknown) >100,000 cfu/ml (unkno wn) date) (unknown) (no (unknown) (unknown) >=4 (units (unkno wn) date) unknown) (unknown) (no (unknown) (unknown) >=8 (units (unkno wn) date) unknown) (unknown) (no (unknown) (unknown) <=0.25 (units (unkno wn) date) unknown) (unknown) (no (unknown) (unknown) <=0.5 (units (unkno wn) date) unknown) (unknown) (no (unknown) (unknown) <=1 (units (unkno wn) date) unknown) (unknown) (no (unknown) (unknown) <=16 (units (unkno wn) date) unknown) (unknown) (no (unknown) (unknown) <=2 (units (unkno wn) date) unknown) (unknown) (no (unknown) (unknown) <=20 (units (unkno wn) date) unknown) (unknown) (no (unknown) (unknown) <=4 (units (unkno wn) date) unknown) (unknown) (no (unknown) (unknown) AERURIAerococcus (units (unknown) date) urinae unknown) (unknown) (no (unknown) (unknown) ESCCOLEscherichia (units (unknown) date) coli unknown) Social History date description facility 2022-04-28 00:00 Ex-smoker ([facility] Vital Signs date measurement value units 2022-04-28 00:00 BMI 45.1 kg/m2 2022-04-28 00:00 BP_diastolic 74 mmHg 2022-04-28 00:00 BP_systolic 127 mmHg 2022-04-28 00:00 heart_rate 111 /min 2022-04-28 00:00 height_metric 162.56 cm 2022-04-28 00:00 height_standard 64 in 2022-04-28 00:00 o2_saturation 94 % 2022-04-28 00:00 respiration_rate 18 /min 2022-04-28 00:00 temperature_metric 36.61 C 2022-04-28 00:00 temperature_standard 97.9 F 2022-04-28 00:00 weight_metric 119.29 kg 2022-04-28 00:00 weight_standard 262.99 lb
[2022-05-19 17:30] LABS: CLARITY,URINE HAZY (CLEAR)
[2022-05-19 17:31] LABS: BACTERIA,URINE Moderate /HPF (None Seen); RBC,URINE 0-5 /HPF (0-5); SQUAMOUS EPITHELIAL CELL,UR FEW Squamous (<= Few); WBC,URINE 0-3 /HPF (0-5)
[2022-05-19] MEDS ORDERED: COD LIVER OIL/ZINC OXIDE 113 GM TUBE TOP STA (17:31)
[2022-05-19 17:32] LABS: YEAST,URINE PRESENT
[2022-05-19] MEDS ORDERED: cefTRIAXone 1 GM VIAL IVP STA (17:50)
[2022-05-19 18:55] VITALS: BP 120/85
--- NOTE | 2022-05-20 12:12 | ED Physician Documentation ---
ED Addendum - Addendum Addendum: 05/20/22 12:11 Urine culture reviewed. She does have symptoms of pyelonephritis and up-to-date was reviewed. I talked her on the phone and she will not take the cefdinir. 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
== END 2022-05-19 19:08 | disposition home or self-care (01) ==
LOC: ED 16:26
DX: N12 Tubulo-interstitial nephritis, not specified as acute or chronic (principal); R82.71 Bacteriuria
CPT/HCPCS: 36415; 80053; 81001; 83605; 83690; 85025; 87086; 96374; 96375; 99283; 99284; A9270; J1170; 81003

== ENCOUNTER 2022-06-02 18:07 | Outpatient (CLI) | payer OTHER | END 2022-06-02 18:08 | disposition critical access hospital (66) | LOC: EMS 18:07 | DX: R07.89 Other chest pain (principal); F41.9 Anxiety disorder, unspecified | CPT/HCPCS: A0425; A0429 ==

== ENCOUNTER 2022-06-02 18:18 | Emergency (ER) | payer OTHER ==
[2022-06-02 18:41] LABS: BASOPHILS % (AUTO) 0.3 %; EOSINOPHILS # (AUTO) 0.1 10^3/uL (0.0-0.7); EOSINOPHILS % (AUTO) 2.2 %; HCT - HEMATOCRIT 41.4 % (37.0-47.0); HGB - HEMOGLOBIN 13.2 g/dL (12.0-16.0); LYMPHOCYTES # (AUTO) 2.3 10^3/uL (1.5-3.5); LYMPHOCYTES % (AUTO) 35.9 %; MEAN CORPUSCULAR HEMOGLOBIN 25.7 pg (27.0-31.0); MEAN CORPUSCULAR HGB CONC 31.9 g/dL (32.0-36.0); MEAN CORPUSCULAR VOLUME 80.7 fL (81.0-99.0); MEAN PLATELET VOLUME 9.6 fL (7.9-10.8); MONOCYTES # (AUTO) 0.4 10^3/uL (0.0-1.0); MONOCYTES % (AUTO) 6.3 %; NEUTROPHILS # (AUTO) 3.5 10^3/uL (1.5-6.6); NEUTROPHILS % (AUTO) 54.8 %; PLT - PLATELET COUNT 183 10^3/uL (130-450); RED BLOOD COUNT 5.13 10^6/uL (4.20-5.40); RED CELL DISTRIBUTION WIDTH 14.9 % (12.0-15.0); WHITE BLOOD COUNT 6.4 x10^3/uL (4.8-10.8)
--- OUTSIDE RECORDS SUMMARY | 2022-06-02 18:43 | EXTERNAL MEDICAL SUMMARY RPT | Continuity of Care Document ---
:1980 Author Organization [facility] Address [address] [place] [address] Phone Care Team Providers Name Role Phone Cassy Bruce Unavailable Unavailable Allergies and Intolerances date description facility type (no date) Mild [facility] (unknown) (no date) Sulfa (Sulfonamide Antibiotics) [facility] (unknown) (no date) amoxicillin [facility] (unknown) (no date) cephalexin [facility] (unknown) (no date) codeine [facility] (unknown) (no date) levofloxacin [facility] (unknown) Encounters No information. Functional Status No information. Immunizations No information. Medications date description facility 2022-04-28 00:00 Oxycodone-Acetaminophen [facility] 2022-04-28 00:00 Phenazopyridine [facility] 2022-04-28 00:00 Nitrofurantoin Monohyd/M-Cryst [facility] 2022-04-28 00:00 Promethazine [facility] Problems date description facility 2022-04-28 00:00 Acute dehydration [facility] 2022-04-28 00:00 Urinary tract infection [facility] Procedures date description facility 2022-04-28 00:00 X-ray rt ribs w/ PA chest [facility] Everetti keiko 2022-04-28 00:00 Unilateral x-ray of hip, two views, wit h x-ray [facility] of pelvis Results/Labs test date author facility value unit interpret ation Result panel 1 (unknown) (no date) ([facility] Result panel 2 (unknown) (no date) (unknown[facility] Result panel 3 (unknown) (no date) (unknown[facility] Result panel 4 (unknown) (no date) (unknown) [facility] [...] nown) date) unknown) (unknown) (no (unknown) (unknown) [id number] (units (unkn own) date) unknown) (unknown) (no (unknown) (unknown) 04/28/22 (units (unkno wn) date) unknown) (unknown) (no (unknown) (unknown) [address] (units (unkn own) date) Street unknown) (unknown) (no (unknown) (unknown) Accession (units (unkn own) date) Number: unknown) [id number] (unknown) (no (unknown) (unknown) Accession (units (unkn own) date) Number: unknown) [id number] (unknown) (no (unknown) (unknown) Age/Sex: 41 / F (units (unknown) date) Date of Service: unknown) (unknown) (no (unknown) (unknown) [place] (units ( unknown) date) [address] unknown) (unknown) (no (unknown) (unknown) Approved by: (units (u nknown) date) doc Bansal M.D. on 04/28/2022 at 13:11 (unknown) (no (unknown) (unknown) Approved by: (units (u nknown) date) georgette Vitale) Paulo on 04/28/2022 at 13:06 (unknown) (no (unknown) (unknown) Bones and chest (units (unknown) date) wall: No unknown) fractures or dislocations. No suspicious bony (unknown) (no (unknown) (unknown) Bones: No (units (unkn own) date) fractures or unknown) dislocations. Pelvic ring appears intact. No (unknown) (no (unknown) (unknown) COMPARISON: (units (un known) date) None. unknown) (unknown) (no (unknown) (unknown) : 1980 (units (unknown) date) Acct:[id number] unknown) (unknown) (no (unknown) (unknown) Dictated by: [...] date) Fall unknown) (unknown) (no (unknown) (unknown) [facility] (units (unknown) date) unknown) (unknown) (no (unknown) [...] nown) date) unknown) (unknown) (no (unknown) (unknown) [id number] (units (unkno wn) date) unknown) (unknown) (no [...] rules or scores unknown) evaluated: [facility] rule (unknown) (no (unknown) (unknown) [...] (unknown) (unknown) : 1980 (units (unknown) date) Acct:[id number] unknown) (unknown) (no (unknown) (unknown) Date of 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 (unknown) (no (unknown) (unknown) Emergency Report (units [...] date) Signs: unknown) (unknown) (no (unknown) (unknown) [facility] (units (unknown) date) [address] unknown) [place] [address] (unknown) (no (unknown) (unknown) Ketorolac (units (unkn [...] (unknown) (unknown) hydrocodone-aceta (units (unknown) date) minophen [[place]] unknown) 5-325 mg tablet (unknown) (no (unknown) [...] any (unknown) (no (unknown) (unknown) mg tablet ([facility]) (units (unknown) date) unknown) (unknown) (no (unknown) [...] nown) date) unknown) (unknown) (no (unknown) (unknown) [id number] (units (unkno wn) date) unknown) (unknown) (no [...] rules or scores unknown) evaluated: [facility] [place] [facility] CT rule (unknown) (no (unknown) (unknown) [...] (unknown) (unknown) : 1980 (units (unknown) date) Acct:[id number] unknown) (unknown) (no (unknown) (unknown) Date of Service: (units (unknown) date) 04/28/22 unknown) (unknown) (no (unknown) (unknown) Departure (units (unkn own) date) unknown) (unknown) (no (unknown) (unknown) Depression (units (unk nown) date) unknown) (unknown) (no (unknown) (unknown) Dictated by: (units (u nknown) date) Dolly aLrsen M.D. unknown) on 04/28/2022 at 13:11 ? 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 (unknown) (no (unknown) (unknown) Emergency Report (units [...] rebound (unknown) (no (unknown) (unknown) General (units (o wn) date) unknown) (unknown) (no [...] (no (unknown) (unknown) History of (units (unk n) date) Present Illness unknown) (unknown) (no (unknown) [...] date) Signs: unknown) (unknown) (no (unknown) (unknown) [facility] (units (unknown) date) [address] [place] [address] unknown) [place] [address] (unknown) (no (unknown) (unknown) Ketorolac (units (unkn [...] (unknown) (unknown) hydrocodone-aceta (units (unknown) date) minophen [[place]] unknown) 5-325 mg tablet (unknown) (no (unknown) [...] any (unknown) (no (unknown) (unknown) mg tablet ([place]) (units (unknown) date) unknown) (unknown) (no (unknown) [...] nown) date) unknown) (unknown) (no (unknown) (unknown) [id number] (units (unkno wn) date) unknown) (unknown) (no [...] rules or scores unknown) evaluated: [facility] [place] head CT rule (unknown) (no (unknown) (unknown) [...] (unknown) (unknown) : 1980 (units (unknown) date) Acct:[id number] unknown) (unknown) (no (unknown) (unknown) Date of 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 (unknown) (no (unknown) (unknown) Emergency Report (units [...] (no (unknown) (unknown) History of (units (unk n) date) Present Illness unknown) (unknown) (no (unknown) [...] (unknown) date) unknown) (unknown) (no (unknown) (unknown) [facility] (units (unknown) date) [address] unknown) [place] [address] (unknown) (no (unknown) (unknown) Ketorolac (units (unkn [...] Lymph # (Auto) (units (unknown) date) 2600 ([id number]) unknown) /uL (unknown) (no (unknown) (unknown) Lymph [...] date) EMS unknown) (unknown) (no (unknown) (unknown) [place] # (Auto) 300 (units (unknown) date) (0-900) /uL unknown) (unknown) (no (unknown) (unknown) [place] % (Auto) 4.4 (units (unknown) date) (3-14) % unknown) (unknown) (no (unknown) (unknown) Narrative (units (unkn own) date) unknown) (unknown) (no (unknown) (unknown) Neuro: normal (units ( unknown) date) speech and unknown) cognition, A+O x3, ambulatory, clear speech (unknown) (no (unknown) (unknown) Neut # (Auto) (units ( unknown) date) 3600 (1049-2158) unknown) /uL (unknown) (no (unknown) (unknown) Neut [...] (unknown) (unknown) Urine Specific (units (unknown) date) [place] 1.025 unknown) (unknown) (no (unknown) (unknown) Vital [...] (unknown) (unknown) hydrocodone-aceta (units (unknown) date) minophen [[place]] unknown) 5-325 mg tablet (unknown) (no (unknown) [...] any (unknown) (no (unknown) (unknown) mg tablet ([place]) (units (unknown) date) unknown) (unknown) (no (unknown) [...] mg PO unknown) Q6HP PRN #10 tabs 02/17/17 (unknown) (no (unknown) (unknown) promethazine 25 (units [...] a primary unknown) care provider please contact [phone] to (unknown) (no (unknown) (unknown) *Please continue [...] a right hip (unknown) (no (unknown) (unknown) [id number] (units (unkno wn) date) unknown) (unknown) (no [...] Date / Time (unknown) (no (unknown) (unknown) [place]] (units (unk nown) date) unknown) (unknown) (no [...] rules or scores unknown) evaluated: [facility] [place] head CT rule (unknown) (no (unknown) (unknown) [...] (unknown) (unknown) : 1980 (units (unknown) date) Acct:[id number] unknown) (unknown) (no (unknown) (unknown) Date of 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 (unknown) (no (unknown) (unknown) Emergency Report (units [...] (unknown) (no (unknown) (unknown) Fosfomycin (units (unk n) date) Tromethamine unknown) (Fosfomycin 3 Gm Packet) [...] (unknown) date) unknown) (unknown) (no (unknown) (unknown) [facility] (units (unknown) date) [address] [place] [address] Street unknown) [place] [address] (unknown) (no (unknown) (unknown) Ketorolac (units (unkn [...] (unknown) Lymph # (Auto) (units (unknown) date) (5259-4330) /uL unknown) (unknown) (no (unknown) (unknown) Lymph # (Auto) (units (unknown) date) 2600 (6571-6243) unknown) /uL (unknown) (no (unknown) (unknown) Lymph [...] (no (unknown) (unknown) MIPS: This (units (unk ) date) encounter doesn't unknown) have any diagnosis' [...] 04/28/22 unknown) @ 16:24 by Cassy Chan [facility]) (unknown) (no (unknown) (unknown) Medical decision [...] date) EMS unknown) (unknown) (no (unknown) (unknown) [place] # (Auto) (units ( unknown) date) (0-900) /uL unknown) (unknown) (no (unknown) (unknown) [place] # (Auto) 300 (units (unknown) date) (0-900) /uL unknown) (unknown) (no (unknown) (unknown) [place] % (Auto) (units ( unknown) date) (3-14) % unknown) (unknown) (no (unknown) (unknown) [place] % (Auto) 4.4 (units (unknown) date) (3-14) % unknown) (unknown) (no (unknown) (unknown) Narrative (units (unkn own) date) unknown) (unknown) (no (unknown) (unknown) Neuro: normal (units ( unknown) date) speech and unknown) cognition, A+O x3, ambulatory, clear speech (unknown) (no (unknown) (unknown) Neut # (Auto) (units ( unknown) date) (1840-8117) /uL unknown) (unknown) (no (unknown) (unknown) Neut # (Auto) (units ( unknown) date) 3600 (2589-9954) unknown) /uL (unknown) (no (unknown) (unknown) Neut [...] (unknown) (unknown) Urine Specific (units (unknown) date) [place] 1.025 unknown) (unknown) (no (unknown) (unknown) Urine [...] (unknown) (no (unknown) (unknown) cephalexin (units (unk n) date) [CEPHALEXIN] unknown) Allergy Unknown NAUSEA/VOMI Verified [...] unknown) (unknown) (no (unknown) (unknown) concerning (units (k n) date) symptoms, such as unknown) [fever [...] (unknown) date) with one of the unknown) [facility] primary care providers. (unknown) (no (unknown) (unknown) [...] (unknown) (unknown) hydrocodone-aceta (units (unknown) date) minophen [[place]] unknown) 5-325 mg tablet (unknown) (no (unknown) [...] with (unknown) (no (unknown) (unknown) mg tablet ([place]) (units (unknown) date) unknown) (unknown) (no (unknown) [...] a primary unknown) care provider please contact [phone] to (unknown) (no (unknown) (unknown) *Please continue [...] a right hip (unknown) (no (unknown) (unknown) [id number] (units (unkno wn) date) unknown) (unknown) (no [...] Date / Time (unknown) (no (unknown) (unknown) [place]] (units (unk nown) date) unknown) (unknown) (no [...] rules or scores unknown) evaluated: [facility] [place] head CT rule (unknown) (no (unknown) (unknown) [...] (unknown) (unknown) : 1980 (units (unknown) date) Acct:[id number] unknown) (unknown) (no (unknown) (unknown) Date of Service: (units (unknown) date) 04/28/22 unknown) (unknown) (no (unknown) (unknown) Departure (units (unkn own) date) unknown) (unknown) (no (unknown) (unknown) Depression (units (unk nown) date) unknown) (unknown) (no (unknown) (unknown) Dictated by: (units (u nknown) date) Dolly Larsen M.D. unknown) on 04/28/2022 at 13:11 ? ? (unknown) (no (unknown) (unknown) Dictated by: (units (u nknown) date) odc Vitale M.D. on 04/28/2022 at 13:04 ? 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 (unknown) (no (unknown) (unknown) Emergency Report (units [...] (unknown) (no (unknown) (unknown) Fosfomycin (units (unk n) date) Tromethamine unknown) (Fosfomycin 3 Gm Packet) [...] (unknown) date) unknown) (unknown) (no (unknown) (unknown) [facility] (units (unknown) date) [address] [place] [address] unknown) [place] [address] (unknown) (no (unknown) (unknown) Ketorolac (units (unkn [...] (unknown) Lymph # (Auto) (units (unknown) date) (3498-5998) /uL unknown) (unknown) (no (unknown) (unknown) Lymph # (Auto) (units (unknown) date) 2600 (9701-9485) unknown) /uL (unknown) (no (unknown) (unknown) Lymph [...] (unknown) (no (unknown) (unknown) MIPS: This (units (unn) date) encounter doesn't unknown) have any diagnosis' [...] 04/28/22 unknown) @ 16:24 by Cassy Chan [facility]) (unknown) (no (unknown) (unknown) Medical decision (units (unknown) date) making narrative: unknown) (unknown) (no (unknown) (unknown) Medication (units (unk n) date) Instructions unknown) Recorded (unknown) (no (unknown) (unknown) Met with the (units (u ) date) patient, ordered unknown) her pain medication [...] date) EMS unknown) (unknown) (no (unknown) (unknown) [place] # (Auto) (units ( unknown) date) (0-900) /uL unknown) (unknown) (no (unknown) (unknown) [place] # (Auto) 300 (units (unknown) date) (0-900) /uL unknown) (unknown) (no (unknown) (unknown) [place] % (Auto) (units ( unknown) date) (3-14) % unknown) (unknown) (no (unknown) (unknown) [place] % (Auto) 4.4 (units (unknown) date) (3-14) % unknown) (unknown) (no (unknown) (unknown) Narrative (units (unkn own) date) unknown) (unknown) (no (unknown) (unknown) Neuro: normal (units ( unknown) date) speech and unknown) cognition, A+O x3, ambulatory, clear speech (unknown) (no (unknown) (unknown) Neut # (Auto) (units ( unknown) date) (6405-1037) /uL unknown) (unknown) (no (unknown) (unknown) Neut # (Auto) (units ( unknown) date) 3600 (6813-7429) unknown) /uL (unknown) (no (unknown) (unknown) Neut [...] (unknown) (unknown) Urine Specific (units (unknown) date) [place] 1.025 unknown) (unknown) (no (unknown) (unknown) Urine [...] (unknown) date) with one of the unknown) [facility] primary care providers. (unknown) (no (unknown) (unknown) [...] (unknown) (unknown) hydrocodone-aceta (units (unknown) date) minophen [[place]] unknown) 5-325 mg tablet (unknown) (no (unknown) [...] with (unknown) (no (unknown) (unknown) mg tablet ([place]) (units (unknown) date) unknown) (unknown) (no (unknown) [...] (unknown) (unknown) <Cassy Chan, (units (unknown) date) [facility] - Last Filed: unknown) 04/28/22 17:10> (unknown) (no (unknown) (unknown) <Low Kilpatrick, (units (unknown) date) DO - Last Filed: unknown) 04/28/22 17:30> (unknown) (no (unknown) (unknown) (Dilaudid) (units (unk nown) date) unknown) (unknown) (no (unknown) (unknown) (Pyridium) tabs (units (unknown) date) unknown) (unknown) (no (unknown) (unknown) *If you do not (units (unknown) date) have a primary unknown) care provider please contact [phone] to (unknown) (no (unknown) (unknown) *Please continue [...] a right hip (unknown) (no (unknown) (unknown) [id number] (units (unkno wn) date) unknown) (unknown) (no [...] Date / Time (unknown) (no (unknown) (unknown) [place]] (units (unk nown) date) unknown) (unknown) (no [...] rules or scores unknown) evaluated: [facility] [place] head CT rule (unknown) (no (unknown) (unknown) [...] (unknown) (unknown) : 1980 (units (unknown) date) Acct:[id number] unknown) (unknown) (no (unknown) (unknown) Date of 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 (unknown) (no (unknown) (unknown) Emergency Report (units [...] unknown) (unknown) (no (unknown) (unknown) Fosfomycin (units (k n) date) Tromethamine unknown) (Fosfomycin 3 Gm Packet) [...] (unknown) date) unknown) (unknown) (no (unknown) (unknown) [facility] (units (unknown) date) [address] unknown) [place] [address] (unknown) (no (unknown) (unknown) Ketorolac (units (unkn [...] (unknown) Lymph # (Auto) (units (unknown) date) (3504-7333) /uL unknown) (unknown) (no (unknown) (unknown) Lymph # (Auto) (units (unknown) date) 2600 (9988-1087) unknown) /uL (unknown) (no (unknown) (unknown) Lymph [...] 04/28/22 unknown) @ 16:24 by Cassy Chan [facility]) (unknown) (no (unknown) (unknown) Medical decision [...] date) EMS unknown) (unknown) (no (unknown) (unknown) [place] # (Auto) (units ( unknown) date) (0-900) /uL unknown) (unknown) (no (unknown) (unknown) [place] # (Auto) 300 (units (unknown) date) (0-900) /uL unknown) (unknown) (no (unknown) (unknown) [place] % (Auto) (units ( unknown) date) (3-14) % unknown) (unknown) (no (unknown) (unknown) [place] % (Auto) 4.4 (units (unknown) date) (3-14) % unknown) (unknown) (no (unknown) (unknown) Narrative (units (unkn own) date) unknown) (unknown) (no (unknown) (unknown) Neuro: normal (units ( unknown) date) speech and unknown) cognition, A+O x3, ambulatory, clear speech (unknown) (no (unknown) (unknown) Neut # (Auto) (units ( unknown) date) (4218-9650) /uL unknown) (unknown) (no (unknown) (unknown) Neut # (Auto) (units ( unknown) date) 3600 (8833-7763) unknown) /uL (unknown) (no (unknown) (unknown) Neut [...] (unknown) (unknown) Urine Specific (units (unknown) date) [place] 1.025 unknown) (unknown) (no (unknown) (unknown) Urine [...] (unknown) date) with one of the unknown) [facility] primary care providers. (unknown) (no (unknown) (unknown) [...] (unknown) (unknown) hydrocodone-aceta (units (unknown) date) minophen [[place]] unknown) 5-325 mg tablet (unknown) (no (unknown) (unknown) hydromorphone 2 (units (unknown) date) mg tablet 2 mg PO unknown) Q6HP PRN #8 tabs 01/10/ (unknown) (no (unknown) (unknown) hydromorphone (units ( [...] with (unknown) (no (unknown) (unknown) mg tablet ([place]) (units (unknown) date) unknown) (unknown) (no (unknown) [...] History date description facility 2022-04-28 00:00 Ex-smoker ([facility] Vital Signs date measurement value units [...]
[2022-06-02 18:53] LABS: ALBUMIN 4.3 g/dL (3.2-5.5); ALBUMIN/GLOBULIN RATIO 1.1 (1.0-2.2); BILIRUBIN,TOTAL 0.4 mg/dL (0.2-1.0); CREATININE 0.5 mg/dL (0.4-1.0); TOTAL PROTEIN 8.1 g/dL (6.7-8.2)
--- NOTE | 2022-06-02 18:59 | XRAY Report ---
PROCEDURE: Chest 1 View X-Ray INDICATIONS: Chest Pain TECHNIQUE: One view of the chest was acquired. COMPARISON: 10/30/2021. FINDINGS: Surgical changes and devices: None. Lungs and pleura: No pleural effusions or pneumothorax. Interstitial pulmonary edema. Mediastinum: Mediastinal contours appear normal. Heart size is normal. Bones and chest wall: No suspicious bony lesions. Overlying soft tissues appear unremarkable. IMPRESSION: Interstitial pulmonary edema. Reviewed by: Jose Ramon MD on 06/02/2022 6:57 PM [facility] Approved by: Jose Ramon MD on 06/02/2022 6:57 PM [facility] Station ID: [id number]
[2022-06-02] MEDS ORDERED: MAG HYDROX/AL HYDROX/SIMETH 30 ML UDC PO STA (19:46)
[2022-06-02] MEDS ORDERED: PROCHLORPERAZINE 10 MG/2 ML VIAL IVP STA (19:46)
[2022-06-02] MEDS ORDERED: LIDOCAINE VISCOUS 2% 15 ML UDC MM STA (19:46)
[2022-06-02] MEDS ORDERED: HYDROmorphone 1 MG/ML CARPUJECT IVP STA (19:46)
--- NOTE | 2022-06-02 19:49 | ED Physician Documentation ---
PD HPI CHEST PAIN - Stated complaint Stated Complaint: CHEST PX - Chief complaint Chief Complaint: Cardiac - History obtained from History obtained from: Patient - Additional information Additional information: This is a 41-year-old woman who presents for the evaluation of chest pain. She has a history of bladder infections with bladder incontinence, GERD, bipolar disorder, chronic pain and history of pulmonary embolism. She presents with 4 days of what she thinks was indigestion with intermittent epigastric pain radiating to the chest but today had more severe squeezing left-sided chest pain. It hurts to take a deep breath. She feels nauseous with it. PD PAST MEDICAL HISTORY - Past Medical History Cardiovascular: Pulmonary embolism, Other Respiratory: Pneumonia Neuro: CVA, Headaches, Migraines, Fainting Endocrine/Autoimmune: None GI: GERD FIELD AIDE: None : Chronic bladder infection, Kidney stones, Other HEENT: None Psych: Depression, Anxiety, Bipolar disorder, Panic attacks, ADD/ADHD, Post traumatic stress disorder Musculoskeletal: Fibromyalgia, Chronic back pain Derm: None - Past Surgical History Past Surgical History: Yes Ortho: Spine surgery, Other /FIELD AIDE: section, Hysterectomy, Oophrectomy, Other HEENT: Tonsil/Adenoidectomy - Present Medications Home Medications: Ambulatory Orders Medication Instructions Recorded Confirmed lamoTRIgine [LaMICtal] 150 mg PO TID 05/04/20 02/14/22 Cyclobenzaprine [Flexeril] 10 mg PO TID PRN 02/26/21 02/14/22 Estrogens, Conjugated [Premarin] 0.625 mg PO DAILY 02/26/21 02/14/22 Pantoprazole Sodium 40 mg PO BID 02/26/21 02/14/22 Cefdinir 300 mg PO BID #20 cap 02/14/22 Nystatin Cream [Mycostatin Cream] 1 applic TOP BID #30 gm 02/14/22 Oxycodone HCl/Acetaminophen 1 - 2 each PO Q6H PRN #14 tablet 02/14/22 [Percocet 5-325 mg Tablet] Promethazine [Phenergan] 25 mg PO Q6H PRN #10 tab 02/14/22 Cefdinir 300 mg PO BID #20 cap 05/19/22 Oxycodone HCl/Acetaminophen 1 each PO Q4H PRN #15 tablet 05/19/22 [Percocet 10-325 mg Tablet] Fluconazole 2 tab PO DAILY 14 Days #28 tablet 05/20/22 Pantoprazole Sodium 40 mg PO BID #60 06/02/22 - Allergies Allergies/Adverse Reactions: Allergies Allergy/AdvReac Type Severity Reaction Status Date / Time sulfamethoxazole Allergy Severe Hives Verified 06/02/22 18:30 [From Bactrim] trimethoprim [From Bactrim] Allergy Severe Hives Verified 06/02/22 18:30 azithromycin [From Zithromax] Allergy Anaphylaxis Verified 06/02/22 18:30 cariprazine [From Vraylar] Allergy Unknown Verified 06/02/22 18:30 ciprofloxacin Allergy Anaphylaxis Verified 06/02/22 18:30 lorazepam AdvReac Headache Verified 06/02/22 18:30 - Social History Does the pt smoke?: No Smoking Status: Never smoker Does the pt drink ETOH?: Yes Does the pt have substance abuse?: No - Immunizations Immunizations are current?: Yes - POLST Patient has POLST: No POLST Status: Full Code PD ED PE NORMAL - Vitals Vital signs reviewed: Yes - General General: Alert and oriented X 3, No acute distress, Well developed/nourished, Other (She is tachycardic. She is tachycardic usually, that this is a little more tachycardic than her baseline.) - HEENT HEENT: PERRL, EOMI - Neck Neck: Supple, no meningeal sign, No bony TTP - Cardiac Cardiac: No murmur, Other (Tachycardic but regular without murmur.) - Respiratory Respiratory: No respiratory distress, Clear bilaterally - Abdomen Abdomen: Non tender - Back Back: No CVA TTP, No spinal TTP - Derm Derm: Normal color, Warm and dry - Extremities Extremities: No edema, No calf tenderness / cord - Neuro Neuro: Alert and oriented X 3, Normal speech Results - Vitals Vitals: Vital Signs - 24 hr 06/02/22 06/02/22 06/02/22 18:27 19:00 19:30 Temperature 37.4 C Heart Rate 122 H 117 H 118 H Respiratory 17 18 23 Rate Blood Pressure 117/70 128/106 H 149/105 H O2 Saturation 97 94 95 06/02/22 20:00 Temperature Heart Rate 122 H Respiratory 23 Rate Blood Pressure 158/102 H O2 Saturation 97 Oxygen O2 Source Room air - EKG (time done) 186 EKG releavant findings:: EKG personally interpreted by author of this note. Relevant findings are: Rate: Rate (enter#) (123) Rhythm: Sinus tachycardia (Sinus tachycardia) Intervals: Other (Nonspecific IVCD) QRS: Normal Ischemia: Normal ST segments - Labs Labs: Laboratory Tests 06/02/22 06/02/22 06/02/22 18:30 18:30 18:30 WBC 6.4 RBC 5.13 Hgb 13.2 Hct 41.4 MCV 80.7 L MCH 25.7 L MCHC 31.9 L RDW 14.9 Plt Count 183 MPV 9.6 Neut # (Auto) 3.5 Lymph # (Auto) 2.3 [place] # (Auto) 0.4 Eos # (Auto) 0.1 Baso # (Auto) 0.0 Absolute Nucleated RBC 0.00 Nucleated RBC % 0.0 D-Dimer < 200.0 L Sodium 139 Potassium 4.0 Chloride 103 Carbon Dioxide 23 Anion Gap 13.0 BUN 9 Creatinine 0.5 Estimated GFR (MDRD) 137 Glucose 230 H Calcium 10.0 Total Bilirubin 0.4 AST 108 H ALT 59 Alkaline Phosphatase 100 Troponin I High Sens Total Protein 8.1 Albumin 4.3 Globulin 3.8 Albumin/Globulin Ratio 1.1 Lipase 41 06/02/22 18:30 WBC RBC Hgb Hct MCV MCH MCHC RDW Plt Count MPV Neut # (Auto) Lymph # (Auto) [place] # (Auto) Eos # (Auto) Baso # (Auto) Absolute Nucleated RBC Nucleated RBC % D-Dimer Sodium Potassium Chloride Carbon Dioxide Anion Gap BUN Creatinine Estimated GFR (MDRD) Glucose Calcium Total Bilirubin AST ALT Alkaline Phosphatase Troponin I High Sens 3.2 Total Protein Albumin Globulin Albumin/Globulin Ratio Lipase - Rads (name of study) Single view chest x-ray shows some nonspecific opacity which the radiologist feels is interstitial pulmonary edema but does not fit her symptoms. Relevant Findings:: Final report received, EMP independent interpretation of test PD Medical Decision Making - ED course ED course: D-dimer reviewed and negative. CBC reviewed and normal. CMP reviewed and notable only for hyperglycemia. Troponin 3.2 which is normal/negative. 41-year-old woman presents with upper abdominal/chest pain. She had multiple episodes of this in the same with negative ischemic work-up in the ED before. Differential diagnosis is broad and includes thromboembolic disease, ACS, hiatal hernia, gastritis, ulcer, biliary disease. After the administration of GI cocktail, IV Dilaudid and Compazine she was pain-free. She says the GI cocktail had an immediate relief on her pain. I suspect that she has gastritis or ulcer, hiatal hernia is also a possibility. We will double her PPI and she should follow-up for upper endoscopy. Departure - Departure Disposition: 01 Home, Self Care Clinical Impression: Abdominal pain, Atypical chest pain Condition: Good Record reviewed to determine appropriate education?: Yes Instructions: ED Chest Pain Atypical Unkn Cause, ED PUD Vs Gastritis Prescriptions: Pantoprazole Sodium 40 mg PO BID #60 Comments: Your work-up today was negative with no sign of heart disease, blood clots, or other concerning findings. Given the response you had to the GI cocktail, I do wonder if you have gastritis or ulcer or hiatal hernia. Talk with your doctor about referral for upper endoscopy. In the meantime we are doubling your pantoprazole. Return if worse.
[2022-06-02 20:54] VITALS: BP 145/96
== END 2022-06-02 20:54 | disposition home or self-care (01) ==
LOC: EDUNIT# → ED 18:18
DX: R10.13 Epigastric pain (principal); R07.89 Other chest pain; R73.9 Hyperglycemia, unspecified
CPT/HCPCS: 36415; 71045; 80053; 83690; 84484; 85025; 85379; 93005; 96374; 96375; 99284; 99285; A9270; J1170

== ENCOUNTER 2022-07-07 12:33 | Emergency (ER) | payer OTHER ==
[2022-07-07] MEDS ORDERED: SODIUM CHLORIDE 0.9% 1,000 ML IV STA (13:01)
[2022-07-07 13:15] LABS: BASOPHILS % (AUTO) 0.3 %; EOSINOPHILS # (AUTO) 0.2 10^3/uL (0.0-0.7); HCT - HEMATOCRIT 42.2 % (37.0-47.0); HGB - HEMOGLOBIN 13.4 g/dL (12.0-16.0); LYMPHOCYTES % (AUTO) 45.1 %; MEAN CORPUSCULAR HGB CONC 31.8 g/dL (32.0-36.0); MEAN CORPUSCULAR VOLUME 81.8 fL (81.0-99.0); MEAN PLATELET VOLUME 9.3 fL (7.9-10.8); MONOCYTES # (AUTO) 0.3 10^3/uL (0.0-1.0); MONOCYTES % (AUTO) 4.3 %; NEUTROPHILS # (AUTO) 3.1 10^3/uL (1.5-6.6); PLT - PLATELET COUNT 173 10^3/uL (130-450); RED BLOOD COUNT 5.16 10^6/uL (4.20-5.40); RED CELL DISTRIBUTION WIDTH 15.1 % (12.0-15.0); WHITE BLOOD COUNT 6.7 x10^3/uL (4.8-10.8)
--- OUTSIDE RECORDS SUMMARY | 2022-07-07 13:24 | EXTERNAL MEDICAL SUMMARY RPT | Continuity of Care Document ---
:1980 Author Organization [facility] Address [address] [place] [address] Phone Care Team Providers Name Role Phone Cassy Bruce Unavailable Unavailable Allergies and Intolerances date description facility type (no date) Mild [facility] (unknown) (no date) Sulfa (Sulfonamide Antibiotics) [facility] (unknown) (no date) amoxicillin [facility] (unknown) (no date) cephalexin [facility] (unknown) (no date) codeine [facility] (unknown) (no date) levofloxacin [facility] (unknown) Encounters No information. Functional Status No information. Immunizations No information. Medications date description facility 2022-04-28 00:00 Oxycodone-Acetaminophen [facility] 2022-04-28 00:00 Phenazopyridine [facility] 2022-04-28 00:00 Nitrofurantoin Monohyd/M-Cryst [facility] 2022-04-28 00:00 Promethazine [facility] Problems date description facility 2022-04-28 00:00 Acute dehydration [facility] 2022-04-28 00:00 Urinary tract infection [facility] Procedures date description facility 2022-04-28 00:00 X-ray rt ribs w/ PA chest [facility] 2022-04-28 00:00 Unilateral x-ray of hip, two views, wit h x-ray [facility] of pelvis Results/Labs test date author facility [...] nown) date) unknown) (unknown) (no (unknown) (unknown) [id number] (units (unkn own) date) unknown) (unknown) (no (unknown) (unknown) 04/28/22 (units (unkno wn) date) unknown) (unknown) (no (unknown) (unknown) [address] (units (unkn own) date) Street unknown) (unknown) (no (unknown) (unknown) Accession (units (unkn own) date) Number: unknown) [id number] (unknown) (no (unknown) (unknown) Accession (units (unkn own) date) Number: unknown) [id number] (unknown) (no (unknown) (unknown) Age/Sex: 41 / F (units (unknown) date) Date of Service: unknown) (unknown) (no (unknown) (unknown) LISA [place] (units ( unknown) date) [id number] unknown) (unknown) (no (unknown) (unknown) Approved by: [...] (unknown) (unknown) : 1980 (units (unknown) date) Acct:[id number] unknown) (unknown) (no (unknown) (unknown) Dictated by: [...] date) Fall unknown) (unknown) (no (unknown) (unknown) [facility] (units (unknown) date) unknown) (unknown) (no (unknown) [...] nown) date) unknown) (unknown) (no (unknown) (unknown) [id number] (units (unkno wn) date) unknown) (unknown) (no [...] rules or scores unknown) evaluated: [place] and [place] head CT rule (unknown) (no (unknown) (unknown) [...] (unknown) (unknown) : 1980 (units (unknown) date) Acct:[id number] unknown) (unknown) (no (unknown) (unknown) Date of 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) FILM COMPOSER (unknown) (no (unknown) (unknown) Emergency Report (units [...] date) Signs: unknown) (unknown) (no (unknown) (unknown) [facility] (units (unknown) date) [address] unknown) [place] [address] (unknown) (no (unknown) (unknown) Ketorolac (units (unkn [...] (unknown) (unknown) hydrocodone-aceta (units (unknown) date) minophen [[place]] unknown) 5-325 mg tablet (unknown) (no (unknown) [...] any (unknown) (no (unknown) (unknown) mg tablet ([place]) (units (unknown) date) unknown) (unknown) (no (unknown) [...] nown) date) unknown) (unknown) (no (unknown) (unknown) [id number] (units (unkno wn) date) unknown) (unknown) (no [...] rules or scores unknown) evaluated: [facility] and [place] head CT rule (unknown) (no (unknown) (unknown) [...] (unknown) (unknown) : 1980 (units (unknown) date) Acct:[id number] unknown) (unknown) (no (unknown) (unknown) Date of 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) FILM COMPOSER (unknown) (no (unknown) (unknown) Emergency Report (units [...] date) Signs: unknown) (unknown) (no (unknown) (unknown) [facility] (units (unknown) date) [address] [place] [address] unknown) [place] [address] (unknown) (no (unknown) (unknown) Ketorolac (units (unkn [...] (unknown) (unknown) hydrocodone-aceta (units (unknown) date) minophen [[place]] unknown) 5-325 mg tablet (unknown) (no (unknown) [...] any (unknown) (no (unknown) (unknown) mg tablet ([place]) (units (unknown) date) unknown) (unknown) (no (unknown) [...] nown) date) unknown) (unknown) (no (unknown) (unknown) [id number] (units (unkno wn) date) unknown) (unknown) (no [...] rules or scores unknown) evaluated: [place] and [place] head CT rule (unknown) (no (unknown) (unknown) [...] (unknown) (unknown) : 1980 (units (unknown) date) Acct:[id number] unknown) (unknown) (no (unknown) (unknown) Date of 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) FILM COMPOSER (unknown) (no (unknown) (unknown) Emergency Report (units [...] (unknown) date) unknown) (unknown) (no (unknown) (unknown) [facility] (units (unknown) date) [address] unknown) [place] [address] (unknown) (no (unknown) (unknown) Ketorolac (units (unkn [...] Lymph # (Auto) (units (unknown) date) 2600 ([id number]) unknown) /uL (unknown) (no (unknown) (unknown) Lymph [...] date) EMS unknown) (unknown) (no (unknown) (unknown) [place] # (Auto) 300 (units (unknown) date) (0-900) /uL unknown) (unknown) (no (unknown) (unknown) [place] % (Auto) 4.4 (units (unknown) date) (3-14) % unknown) (unknown) (no (unknown) (unknown) Narrative (units (unkn own) date) unknown) (unknown) (no (unknown) (unknown) Neuro: normal (units ( unknown) date) speech and unknown) cognition, A+O x3, ambulatory, clear speech (unknown) (no (unknown) (unknown) Neut # (Auto) (units ( unknown) date) 3600 (8517-4323) unknown) /uL (unknown) (no (unknown) (unknown) Neut [...] (unknown) (unknown) Urine Specific (units (unknown) date) [place] 1.025 unknown) (unknown) (no (unknown) (unknown) Vital [...] (unknown) (unknown) hydrocodone-aceta (units (unknown) date) minophen [[place]] unknown) 5-325 mg tablet (unknown) (no (unknown) [...] any (unknown) (no (unknown) (unknown) mg tablet ([place]) (units (unknown) date) unknown) (unknown) (no (unknown) [...] a primary unknown) care provider please contact [phone] to (unknown) (no (unknown) (unknown) *Please continue [...] a right hip (unknown) (no (unknown) (unknown) [id number] (units (unkno wn) date) unknown) (unknown) (no [...] Date / Time (unknown) (no (unknown) (unknown) [place]] (units (unk nown) date) unknown) (unknown) (no [...] rules or scores unknown) evaluated: [place] and [place] head CT rule (unknown) (no (unknown) (unknown) [...] (unknown) (unknown) : 1980 (units (unknown) date) Acct:[id number] unknown) (unknown) (no (unknown) (unknown) Date of 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) FILM COMPOSER (unknown) (no (unknown) (unknown) Emergency Report (units [...] (unknown) date) unknown) (unknown) (no (unknown) (unknown) [facility] (units (unknown) date) [address] [place] [address] Street unknown) [place] [address] (unknown) (no (unknown) (unknown) Ketorolac (units (unkn [...] (unknown) Lymph # (Auto) (units (unknown) date) ([id number]) /uL unknown) (unknown) (no (unknown) (unknown) Lymph # (Auto) (units (unknown) date) 2600 (9174-3040) unknown) /uL (unknown) (no (unknown) (unknown) Lymph [...] 04/28/22 unknown) @ 16:24 by Cassy Chan [facility]) (unknown) (no (unknown) (unknown) Medical decision (units [...] date) EMS unknown) (unknown) (no (unknown) (unknown) [place] # (Auto) (units ( unknown) date) (0-900) /uL unknown) (unknown) (no (unknown) (unknown) [place] # (Auto) 300 (units (unknown) date) (0-900) /uL unknown) (unknown) (no (unknown) (unknown) [place] % (Auto) (units ( unknown) date) (3-14) % unknown) (unknown) (no (unknown) (unknown) [place] % (Auto) 4.4 (units (unknown) date) (3-14) % unknown) (unknown) (no (unknown) (unknown) Narrative (units (unkn own) date) unknown) (unknown) (no (unknown) (unknown) Neuro: normal (units ( unknown) date) speech and unknown) cognition, A+O x3, ambulatory, clear speech (unknown) (no (unknown) (unknown) Neut # (Auto) (units ( unknown) date) (8077-4309) /uL unknown) (unknown) (no (unknown) (unknown) Neut # (Auto) (units ( unknown) date) 3600 (2647-9939) unknown) /uL (unknown) (no (unknown) (unknown) Neut [...] (unknown) (unknown) Urine Specific (units (unknown) date) [place] 1.025 unknown) (unknown) (no (unknown) (unknown) Urine [...] (unknown) date) with one of the unknown) [facility] primary care providers. (unknown) (no (unknown) (unknown) [...] (unknown) (unknown) hydrocodone-aceta (units (unknown) date) minophen [[place]] unknown) 5-325 mg tablet (unknown) (no (unknown) [...] with (unknown) (no (unknown) (unknown) mg tablet ([place]) (units (unknown) date) unknown) (unknown) (no (unknown) [...] a primary unknown) care provider please contact [phone] to (unknown) (no (unknown) (unknown) *Please continue [...] a right hip (unknown) (no (unknown) (unknown) [id number] (units (unkno wn) date) unknown) (unknown) (no [...] Date / Time (unknown) (no (unknown) (unknown) [place]] (units (unk nown) date) unknown) (unknown) (no [...] rules or scores unknown) evaluated: [place] and [place] head CT rule (unknown) (no (unknown) (unknown) [...] (unknown) (unknown) : 1980 (units (unknown) date) Acct:[id number] unknown) (unknown) (no (unknown) (unknown) Date of 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) FILM COMPOSER (unknown) (no (unknown) (unknown) Emergency Report (units [...] (unknown) date) unknown) (unknown) (no (unknown) (unknown) [facility] (units (unknown) date) [address] [place] [address] unknown) [place] [address] (unknown) (no (unknown) (unknown) Ketorolac (units (unkn [...] (unknown) Lymph # (Auto) (units (unknown) date) (1392-0955) /uL unknown) (unknown) (no (unknown) (unknown) Lymph # (Auto) (units (unknown) date) 2600 (2836-6045) unknown) /uL (unknown) (no (unknown) (unknown) Lymph [...] 04/28/22 unknown) @ 16:24 by Cassy Chan [facility]) (unknown) (no (unknown) (unknown) Medical decision (units [...] date) EMS unknown) (unknown) (no (unknown) (unknown) [place] # (Auto) (units ( unknown) date) (0-900) /uL unknown) (unknown) (no (unknown) (unknown) [place] # (Auto) 300 (units (unknown) date) (0-900) /uL unknown) (unknown) (no (unknown) (unknown) [place] % (Auto) (units ( unknown) date) (3-14) % unknown) (unknown) (no (unknown) (unknown) [place] % (Auto) 4.4 (units (unknown) date) (3-14) % unknown) (unknown) (no (unknown) (unknown) Narrative (units (unkn own) date) unknown) (unknown) (no (unknown) (unknown) Neuro: normal (units ( unknown) date) speech and unknown) cognition, A+O x3, ambulatory, clear speech (unknown) (no (unknown) (unknown) Neut # (Auto) (units ( unknown) date) (1864-1389) /uL unknown) (unknown) (no (unknown) (unknown) Neut # (Auto) (units ( unknown) date) 3600 (8159-7197) unknown) /uL (unknown) (no (unknown) (unknown) Neut [...] (unknown) (unknown) Urine Specific (units (unknown) date) [place] 1.025 unknown) (unknown) (no (unknown) (unknown) Urine [...] (unknown) date) with one of the unknown) [facility] primary care providers. (unknown) (no (unknown) (unknown) [...] (unknown) (unknown) hydrocodone-aceta (units (unknown) date) minophen [[place]] unknown) 5-325 mg tablet (unknown) (no (unknown) [...] with (unknown) (no (unknown) (unknown) mg tablet ([place]) (units (unknown) date) unknown) (unknown) (no (unknown) [...] (unknown) (unknown) <Cassy Chan, (units (unknown) date) [facility] - Last Filed: unknown) 04/28/22 17:10> (unknown) (no (unknown) (unknown) <Low Kilpatrick, (units (unknown) date) DO - Last Filed: unknown) 04/28/22 17:30> (unknown) (no (unknown) (unknown) (Dilaudid) (units (unk nown) date) unknown) (unknown) (no (unknown) (unknown) (Pyridium) tabs (units (unknown) date) unknown) (unknown) (no (unknown) (unknown) *If you do not (units (unknown) date) have a primary unknown) care provider please contact [phone] to (unknown) (no (unknown) (unknown) *Please continue [...] a right hip (unknown) (no (unknown) (unknown) [id number] (units (unkno wn) date) unknown) (unknown) (no [...] Date / Time (unknown) (no (unknown) (unknown) [place]] (units (unk nown) date) unknown) (unknown) (no [...] rules or scores unknown) evaluated: [place] and [place] head CT rule (unknown) (no (unknown) (unknown) [...] (unknown) (unknown) : 1980 (units (unknown) date) Acct:[id number] unknown) (unknown) (no (unknown) (unknown) Date of 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) FILM COMPOSER (unknown) (no (unknown) (unknown) Emergency Report (units [...] (unknown) date) unknown) (unknown) (no (unknown) (unknown) [facility] (units (unknown) date) [address] unknown) [place] [address] (unknown) (no (unknown) (unknown) Ketorolac (units (unkn [...] (unknown) Lymph # (Auto) (units (unknown) date) ([id number]) /uL unknown) (unknown) (no (unknown) (unknown) Lymph # (Auto) (units (unknown) date) 2600 (3954-9362) unknown) /uL (unknown) (no (unknown) (unknown) Lymph [...] 04/28/22 unknown) @ 16:24 by Cassy Chan [facility]) (unknown) (no (unknown) (unknown) Medical decision (units [...] date) EMS unknown) (unknown) (no (unknown) (unknown) [place] # (Auto) (units ( unknown) date) (0-900) /uL unknown) (unknown) (no (unknown) (unknown) [place] # (Auto) 300 (units (unknown) date) (0-900) /uL unknown) (unknown) (no (unknown) (unknown) [place] % (Auto) (units ( unknown) date) (3-14) % unknown) (unknown) (no (unknown) (unknown) [place] % (Auto) 4.4 (units (unknown) date) (3-14) % unknown) (unknown) (no (unknown) (unknown) Narrative (units (unkn own) date) unknown) (unknown) (no (unknown) (unknown) Neuro: normal (units ( unknown) date) speech and unknown) cognition, A+O x3, ambulatory, clear speech (unknown) (no (unknown) (unknown) Neut # (Auto) (units ( unknown) date) (5234-3676) /uL unknown) (unknown) (no (unknown) (unknown) Neut # (Auto) (units ( unknown) date) 3600 (6807-2865) unknown) /uL (unknown) (no (unknown) (unknown) Neut [...] (unknown) (unknown) Urine Specific (units (unknown) date) [place] 1.025 unknown) (unknown) (no (unknown) (unknown) Urine [...] (unknown) date) with one of the unknown) [facility] primary care providers. (unknown) (no (unknown) (unknown) [...] (unknown) (unknown) hydrocodone-aceta (units (unknown) date) minophen [[place]] unknown) 5-325 mg tablet (unknown) (no (unknown) [...] with (unknown) (no (unknown) (unknown) mg tablet ([place]) (units (unknown) date) unknown) (unknown) (no (unknown) [...] History date description facility 2022-04-28 00:00 Ex-smoker ([facility] Vital Signs date measurement value units 2022-04-28 [...]
[2022-07-07 13:29] LABS: ALBUMIN 4.6 g/dL (3.2-5.5); ALBUMIN/GLOBULIN RATIO 1.4 (1.0-2.2); BILIRUBIN,TOTAL 0.6 mg/dL (0.2-1.0); CALCIUM 9.8 mg/dL (8.5-10.3); CREATININE 0.5 mg/dL (0.4-1.0); POTASSIUM 3.7 mmol/L (3.5-5.0)
[2022-07-07] MEDS ORDERED: ONDANSETRON 4 MG/2 ML VIAL IVP STA (14:11)
[2022-07-07] MEDS ORDERED: PROCHLORPERAZINE 10 MG/2 ML VIAL IVP STA (14:42)
--- NOTE | 2022-07-07 14:45 | ED Physician Documentation ---
History of Present Illness - Stated complaint Stated Complaint: DIZZY,FUZZY VSN - Chief complaint Chief Complaint: Neuro - History obtained from History obtained from: Patient - Additonal information Additional information: The patient comes to the emergency department chief complaint of visual changes, right tongue tingling, and a stabbing pain around and above her left ear. She states she has had for "flulike" symptoms for the last week and a half, which she clarifies to be body aches and nausea. The patient states that she has been able to drink water, but eating has been difficult. She denies any new medications or different doses than she is normally. She is not currently vomiting, though she did earlier in the illness. She has had some mild diarrhea. No other complaints at this time. She clarifies that her visual changes involve a distortion of her vision that makes it appear as though she is looking through plexiglass. Patient has chronically dilated pupils and chronic tachycardia, the cause of both of which is unclear. She is on multiple psychiatric medications and did recently have cessation of one of the medications, due to it making her feel more depressed and suicidal. This was about 2 weeks ago. 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 OPERATIONS OFFICER: None : Chronic bladder infection, Kidney stones, Other HEENT: None Psych: Depression, Anxiety, Bipolar disorder, Panic attacks, ADD/ADHD, Post traumatic stress disorder Musculoskeletal: Fibromyalgia, Chronic back pain Derm: None - Past Surgical History Past Surgical History: Yes Ortho: Spine surgery, Other /MILITARY SOURCE OPERATIONS OFFICER: section, Hysterectomy, Oophrectomy, Other HEENT: Tonsil/Adenoidectomy - Present Medications Home Medications: Ambulatory Orders Medication Instructions Recorded Confirmed lamoTRIgine [LaMICtal] 150 mg PO TID 05/04/20 02/14/22 Cyclobenzaprine [Flexeril] 10 mg PO TID PRN 02/26/21 02/14/22 Estrogens, Conjugated [Premarin] 0.625 mg PO DAILY 02/26/21 02/14/22 Pantoprazole Sodium 40 mg PO BID 02/26/21 02/14/22 Cefdinir 300 mg PO BID #20 cap 02/14/22 Nystatin Cream [Mycostatin Cream] 1 applic TOP BID #30 gm 02/14/22 Oxycodone HCl/Acetaminophen 1 - 2 each PO Q6H PRN #14 tablet 02/14/22 [Percocet 5-325 mg Tablet] Promethazine [Phenergan] 25 mg PO Q6H PRN #10 tab 02/14/22 Cefdinir 300 mg PO BID #20 cap 05/19/22 Oxycodone HCl/Acetaminophen 1 each PO Q4H PRN #15 tablet 05/19/22 [Percocet 10-325 mg Tablet] Fluconazole 2 tab PO DAILY 14 Days #28 tablet 05/20/22 Pantoprazole Sodium 40 mg PO BID #60 06/02/22 Oxycodone HCl/Acetaminophen 1 each PO Q6H PRN #10 tablet 07/11/22 [Percocet 10-325 mg Tablet] - Allergies Allergies/Adverse Reactions: Allergies Allergy/AdvReac Type Severity Reaction Status Date / Time sulfamethoxazole Allergy Severe Hives Verified 07/11/22 21:21 [From Bactrim] trimethoprim [From Bactrim] Allergy Severe Hives Verified 07/11/22 21:21 azithromycin [From Zithromax] Allergy Anaphylaxis Verified 07/11/22 21:21 cariprazine [From Vraylar] Allergy Unknown Verified 07/11/22 21:21 ciprofloxacin Allergy Anaphylaxis Verified 07/11/22 21:21 dextromethorphan Allergy Hallucinati Verified 07/11/22 21:21 [From Nuedexta] ons quinidine [From Nuedexta] Allergy Hallucinati Verified 07/11/22 21:21 ons lorazepam AdvReac Headache Verified 07/11/22 21:21 - Social History Does the pt smoke?: No Smoking Status: Never smoker Does the pt drink ETOH?: Yes Does the pt have substance abuse?: No - Immunizations Immunizations are current?: Yes - POLST Patient has POLST: No POLST Status: Full Code PD ED PE NORMAL - Vitals Vital signs reviewed: Yes - General General: Alert and oriented X 3, Well developed/nourished, Other (Patient appears mildly uncomfortable but otherwise in no apparent distress.) - HEENT HEENT: Atraumatic, EOMI, Moist mucous membranes, Other (Pupils are equal round and sluggishly reactive to light. They are dilated to approximately 8 mm and go down to 7 mm with light. Pupillary reflexes intact.) - Neck Neck: Supple, no meningeal sign - Cardiac Cardiac: No murmur, Other (Tachycardic rate regular rhythm) - Respiratory Respiratory: No respiratory distress, Clear bilaterally - Abdomen Abdomen: Soft, Non tender, Other (Moderate obesity) - Derm Derm: Normal color, Warm and dry, No rash - Extremities Extremities: No deformity, No edema - Neuro Neuro: Alert and oriented X 3 - Psych Psych: Normal mood, Normal affect Results - Vitals Vitals: Oxygen O2 Source Room air - Labs Labs: Laboratory Tests 07/07/22 07/07/22 13:10 13:10 WBC 6.7 RBC 5.16 Hgb 13.4 Hct 42.2 MCV 81.8 MCH 26.0 L MCHC 31.8 L RDW 15.1 H Plt Count 173 MPV 9.3 Neut # (Auto) 3.1 Lymph # (Auto) 3.0 Gilliam # (Auto) 0.3 Eos # (Auto) 0.2 Baso # (Auto) 0.0 Absolute Nucleated RBC 0.00 Nucleated RBC % 0.0 Sodium 139 Potassium 3.7 Chloride 104 Carbon Dioxide 24 Anion Gap 11.0 BUN 9 Creatinine 0.5 Estimated GFR (MDRD) 137 Glucose 198 H Calcium 9.8 Total Bilirubin 0.6 AST 73 H ALT 55 Alkaline Phosphatase 101 Total Protein 8.0 Albumin 4.6 Globulin 3.4 Albumin/Globulin Ratio 1.4 Lipase 37 PD Medical Decision Making - ED course Complexity details: reviewed old records, reviewed results, re-evaluated patient, considered differential, d/w patient, d/w family ED course: The patient was given a liter of 0.9 normal saline as well as Zofran and Compazine. She was worked up with laboratory studies and EKG, all of which were ordered and reviewed by me. Work-up was unremarkable. We have discussed symptomatic management at home, and the usual indications for return. Departure - Departure Disposition: 01 Home, Self Care Clinical Impression: Change in vision, Viral syndrome Headache Qualifiers: Headache type: unspecified Headache chronicity pattern: acute headache Intractability: not intractable Qualified Code(s): R51.9 - Headache, unspecified Condition: Stable Instructions: ED Viral Syndrome Comments: Your labs and CT look good. Your EKG shows a slightly fast heartbeat but otherwise no concerning abnormalities. It is not clear what caused your visual changes and tongue tingling today, but most likely, your symptoms are is part of the viral illness that you have been dealing with and should pass on their own. We have hydrated you with IV fluids and we have done a CT scan to evaluate the stabbing pain and visual changes and nothing abnormal has shown up on that. Please follow-up with your primary care physician for further concerns. Discharge Date/Time: 07/07/22 15:49
[2022-07-07] MEDS ORDERED: HYDROmorphone 0.5 MG/0.5 ML SYRINGE IVP STA (14:47)
--- NOTE | 2022-07-07 15:21 | CT Report ---
PROCEDURE: HEAD WO INDICATIONS: visual changes, headache TECHNIQUE: Noncontrast 4.5 mm thick angled axial sections acquired from the foramen magnum to the vertex. For r adiation dose reduction, the following was used: automated exposure control, adjustment of mA and/or kV according to patient size. COMPARISON: 11/16/2021. FINDINGS: Image quality: Excellent. CSF spaces: Basal cisterns are patent. No extra-axial fluid collections. Ventricles are normal in size and shape. Brain: No midline shift. No intracranial masses or hemorrhage. Jackson-white matter interface is norm al. Skull and face: Calvarium and visualized facial bones are intact, without suspicious lesions. Sinuses: Visualized sinuses and mastoids are clear. IMPRESSION: No acute intracranial pathology No mass or mass effect. Reviewed by: Dom Khan MD on 07/07/2022 3:19 PM PDT Approved by: Dom Khan MD on 07/07/2022 3:19 PM PDT Station ID: [id number]
[2022-07-07 15:50] VITALS: BP 121/82
== END 2022-07-07 15:49 | disposition home or self-care (01) ==
LOC: ED 12:33
DX: H53.8 Other visual disturbances (principal); R51.9 Headache, unspecified; B34.9 Viral infection, unspecified
CPT/HCPCS: 36415; 70450; 80053; 83690; 85025; 93005; 96374; 96375; 99283; 99284; J1170

== ENCOUNTER 2022-07-11 21:01 | Emergency (ER) | payer OTHER ==
[2022-07-11 21:21] VITALS: BP 142/99
--- OUTSIDE RECORDS SUMMARY | 2022-07-11 21:48 | EXTERNAL MEDICAL SUMMARY RPT | Continuity of Care Document ---
:1980 Author Organization [facility] Address [address] [place] [address] Phone Care Team Providers Name Role Phone Cassy Bruce Unavailable Unavailable Allergies and Intolerances date description facility type (no date) Mild (unknown) (no date) Sulfa (Sulfonamide Antibiotics) [facility] (unknown) (no date) amoxicillin (unknown) (no date) cephalexin (unknown) (no date) codeine (unknown) (no date) levofloxacin (unknown) Encounters No information. Functional Status No information. Immunizations No information. Medications date description facility 2022-04-28 00:00 Oxycodone-Acetaminophen [facility] 2022-04-28 00:00 Phenazopyridine 2022-04-28 00:00 Nitrofurantoin Monohyd/M-Cryst 2022-04-28 00:00 Promethazine Problems date description facility 2022-04-28 00:00 Acute dehydration 2022-04-28 00:00 Urinary tract infection [facility] Procedures date description facility 2022-04-28 00:[facility]28 [facility]:00 Unilateral x-ray of hip, two views, wit h x-ray of pelvis Results/Labs test date author facility [...] nown) date) unknown) (unknown) (no (unknown) (unknown) [id number] (units (unkn own) date) unknown) (unknown) (no (unknown) (unknown) 04/28/22 (units (unkno wn) date) unknown) (unknown) (no (unknown) (unknown) [address] (units (unkn own) date) Street unknown) (unknown) (no (unknown) (unknown) Accession (units (unkn own) date) Number: unknown) [id number] (unknown) (no (unknown) (unknown) Accession (units (unkn own) date) Number: unknown) [id number] (unknown) (no (unknown) (unknown) Age/Sex: 41 / F (units (unknown) date) Date of Service: unknown) (unknown) (no (unknown) (unknown) LISA [place] (units ( unknown) date) [id number] unknown) (unknown) (no (unknown) (unknown) Approved by: [...] (unknown) (unknown) : 1980 (units (unknown) date) Acct:[id number] unknown) (unknown) (no (unknown) (unknown) Dictated by: [...] date) Fall unknown) (unknown) (no (unknown) (unknown) (units (unknown) date) unknown) (unknown) (no (unknown) [...] nown) date) unknown) (unknown) (no (unknown) (unknown) [id number] (units (unkno wn) date) unknown) (unknown) (no [...] rules or scores unknown) evaluated: Nexus and [place] head CT rule (unknown) (no (unknown) (unknown) [...] (unknown) (unknown) : 1980 (units (unknown) date) Acct:[id number] unknown) (unknown) (no (unknown) (unknown) Date of 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) MARKETING DEVELOPMENT REPRESENTATIVE (unknown) (no (unknown) (unknown) Emergency Report (units [...] date) Signs: unknown) (unknown) (no (unknown) (unknown) (units (unknown) date) [address] unknown) [place] [address] (unknown) (no (unknown) (unknown) Ketorolac (units (unkn [...] (unknown) (unknown) hydrocodone-aceta (units (unknown) date) minophen [[place]] unknown) 5-325 mg tablet (unknown) (no (unknown) [...] any (unknown) (no (unknown) (unknown) mg tablet ([place]) (units (unknown) date) unknown) (unknown) (no (unknown) [...] nown) date) unknown) (unknown) (no (unknown) (unknown) [id number] (units (unkno wn) date) unknown) (unknown) (no [...] rules or scores unknown) evaluated: Nexus and [place] head CT rule (unknown) (no (unknown) (unknown) [...] (unknown) (unknown) : 1980 (units (unknown) date) Acct:[id number] unknown) (unknown) (no (unknown) (unknown) Date of 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) MARKETING DEVELOPMENT REPRESENTATIVE (unknown) (no (unknown) (unknown) Emergency Report (units [...] date) Signs: unknown) (unknown) (no (unknown) (unknown) (units (unknown) date) [address] [place] [address] unknown) [place] [address] (unknown) (no (unknown) (unknown) Ketorolac (units (unkn [...] (unknown) (unknown) hydrocodone-aceta (units (unknown) date) minophen [[place]] unknown) 5-325 mg tablet (unknown) (no (unknown) [...] any (unknown) (no (unknown) (unknown) mg tablet ([place]) (units (unknown) date) unknown) (unknown) (no (unknown) [...] nown) date) unknown) (unknown) (no (unknown) (unknown) [id number] (units (unkno wn) date) unknown) (unknown) (no [...] rules or scores unknown) evaluated: Nexus and [place] head CT rule (unknown) (no (unknown) (unknown) [...] (unknown) (unknown) : 1980 (units (unknown) date) Acct:[id number] unknown) (unknown) (no (unknown) (unknown) Date of 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) MARKETING DEVELOPMENT REPRESENTATIVE (unknown) (no (unknown) (unknown) Emergency Report (units [...] (unknown) date) unknown) (unknown) (no (unknown) (unknown) (units (unknown) date) [address] unknown) [place] [address] (unknown) (no (unknown) (unknown) Ketorolac (units (unkn [...] Lymph # (Auto) (units (unknown) date) 2600 ([id number]) unknown) /uL (unknown) (no (unknown) (unknown) Lymph [...] date) EMS unknown) (unknown) (no (unknown) (unknown) [place] # (Auto) 300 (units (unknown) date) (0-900) /uL unknown) (unknown) (no (unknown) (unknown) [place] % (Auto) 4.4 (units (unknown) date) (3-14) % unknown) (unknown) (no (unknown) (unknown) Narrative (units (unkn own) date) unknown) (unknown) (no (unknown) (unknown) Neuro: normal (units ( unknown) date) speech and unknown) cognition, A+O x3, ambulatory, clear speech (unknown) (no (unknown) (unknown) Neut # (Auto) (units ( unknown) date) 3600 (2602-5990) unknown) /uL (unknown) (no (unknown) (unknown) Neut [...] (unknown) (unknown) Urine Specific (units (unknown) date) [place] 1.025 unknown) (unknown) (no (unknown) (unknown) Vital [...] (unknown) (unknown) hydrocodone-aceta (units (unknown) date) minophen [[place]ppy] unknown) 5-325 mg tablet (unknown) (no (unknown) [...] any (unknown) (no (unknown) (unknown) mg tablet ([place]) (units (unknown) date) unknown) (unknown) (no (unknown) [...] a primary unknown) care provider please contact [phone] to (unknown) (no (unknown) (unknown) *Please continue [...] a right hip (unknown) (no (unknown) (unknown) [id number] (units (unkno wn) date) unknown) (unknown) (no [...] Date / Time (unknown) (no (unknown) (unknown) [place]] (units (unk nown) date) unknown) (unknown) (no [...] rules or scores unknown) evaluated: Nexus and [place]ese head CT rule (unknown) (no (unknown) (unknown) [...] (unknown) (unknown) : 1980 (units (unknown) date) Acct:[id number] unknown) (unknown) (no (unknown) (unknown) Date of 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) MARKETING DEVELOPMENT REPRESENTATIVE (unknown) (no (unknown) (unknown) Emergency Report (units [...] (unknown) date) unknown) (unknown) (no (unknown) (unknown) (units (unknown) date) [address] [place] [address] Street unknown) [place] [address] (unknown) (no (unknown) (unknown) Ketorolac (units (unkn [...] (unknown) Lymph # (Auto) (units (unknown) date) (5846-4410) /uL unknown) (unknown) (no (unknown) (unknown) Lymph # (Auto) (units (unknown) date) 2600 (2269-1943) unknown) /uL (unknown) (no (unknown) (unknown) Lymph [...] @ 16:24 by Cassy Chan [facility]) (unknown) (no (unknown) (unknown) Medical decision [...] date) EMS unknown) (unknown) (no (unknown) (unknown) [place] # (Auto) (units ( unknown) date) (0-900) /uL unknown) (unknown) (no (unknown) (unknown) [place] # (Auto) 300 (units (unknown) date) (0-900) /uL unknown) (unknown) (no (unknown) (unknown) [place] % (Auto) (units ( unknown) date) (3-14) % unknown) (unknown) (no (unknown) (unknown) [place] % (Auto) 4.4 (units (unknown) date) (3-14) % unknown) (unknown) (no (unknown) (unknown) Narrative (units (unkn own) date) unknown) (unknown) (no (unknown) (unknown) Neuro: normal (units ( unknown) date) speech and unknown) cognition, A+O x3, ambulatory, clear speech (unknown) (no (unknown) (unknown) Neut # (Auto) (units ( unknown) date) (7052-4037) /uL unknown) (unknown) (no (unknown) (unknown) Neut # (Auto) (units ( unknown) date) 3600 (4699-9323) unknown) /uL (unknown) (no (unknown) (unknown) Neut [...] (unknown) (unknown) Urine Specific (units (unknown) date) [place] 1.025 unknown) (unknown) (no (unknown) (unknown) Urine [...] (unknown) date) with one of the unknown) primary care providers. (unknown) (no (unknown) (unknown) [...] (unknown) (unknown) hydrocodone-aceta (units (unknown) date) minophen [[place]] unknown) 5-325 mg tablet (unknown) (no (unknown) [...] with (unknown) (no (unknown) (unknown) mg tablet ([place]) (units (unknown) date) unknown) (unknown) (no (unknown) [...] a primary unknown) care provider please contact [phone] to (unknown) (no (unknown) (unknown) *Please continue [...] a right hip (unknown) (no (unknown) (unknown) [id number] (units (unkno wn) date) unknown) (unknown) (no [...] Date / Time (unknown) (no (unknown) (unknown) [place]] (units (unk nown) date) unknown) (unknown) (no [...] rules or scores unknown) evaluated: Nexus and Sudanese head CT rule (unknown) (no (unknown) (unknown) [...] (unknown) (unknown) : 1980 (units (unknown) date) Acct:[id number] unknown) (unknown) (no (unknown) (unknown) Date of 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) MARKETING DEVELOPMENT REPRESENTATIVE (unknown) (no (unknown) (unknown) Emergency Report (units [...] (unknown) date) unknown) (unknown) (no (unknown) (unknown) (units (unknown) date) [address] [place] [address] unknown) [place] [address] (unknown) (no (unknown) (unknown) Ketorolac (units (unkn [...] (unknown) Lymph # (Auto) (units (unknown) date) (1382-9610) /uL unknown) (unknown) (no (unknown) (unknown) Lymph # (Auto) (units (unknown) date) 2600 (9756-1665) unknown) /uL (unknown) (no (unknown) (unknown) Lymph [...] @ 16:24 by Cassy Chan [facility]) (unknown) (no (unknown) (unknown) Medical decision [...] date) EMS unknown) (unknown) (no (unknown) (unknown) [place] # (Auto) (units ( unknown) date) (0-900) /uL unknown) (unknown) (no (unknown) (unknown) [place] # (Auto) 300 (units (unknown) date) (0-900) /uL unknown) (unknown) (no (unknown) (unknown) [place] % (Auto) (units ( unknown) date) (3-14) % unknown) (unknown) (no (unknown) (unknown) [place] % (Auto) 4.4 (units (unknown) date) (3-14) % unknown) (unknown) (no (unknown) (unknown) Narrative (units (unkn own) date) unknown) (unknown) (no (unknown) (unknown) Neuro: normal (units ( unknown) date) speech and unknown) cognition, A+O x3, ambulatory, clear speech (unknown) (no (unknown) (unknown) Neut # (Auto) (units ( unknown) date) (0908-2246) /uL unknown) (unknown) (no (unknown) (unknown) Neut # (Auto) (units ( unknown) date) 3600 (8125-2894) unknown) /uL (unknown) (no (unknown) (unknown) Neut [...] (unknown) (unknown) Urine Specific (units (unknown) date) [place] 1.025 unknown) (unknown) (no (unknown) (unknown) Urine [...] (unknown) date) with one of the unknown) primary care providers. (unknown) (no (unknown) (unknown) [...] (unknown) (unknown) hydrocodone-aceta (units (unknown) date) minophen [[place]cho[place]] unknown) 5-325 mg tablet (unknown) (no (unknown) [...] with (unknown) (no (unknown) (unknown) mg tablet ([place]) (units (unknown) date) unknown) (unknown) (no (unknown) [...] <Cassy Chan, (units (unknown) date) [facility] - Last Filed: unknown) 04/28/22 17:10> (unknown) (no (unknown) (unknown) <Low Kilpatrick, (units (unknown) date) DO - Last Filed: unknown) 04/28/22 17:30> (unknown) (no (unknown) (unknown) (Dilaudid) (units (unk nown) date) unknown) (unknown) (no (unknown) (unknown) (Pyridium) tabs (units (unknown) date) unknown) (unknown) (no (unknown) (unknown) *If you do not (units (unknown) date) have a primary unknown) care provider please contact [phone] to (unknown) (no (unknown) (unknown) *Please continue [...] a right hip (unknown) (no (unknown) (unknown) [id number] (units (unkno wn) date) unknown) (unknown) (no [...] Date / Time (unknown) (no (unknown) (unknown) [place]] (units (unk nown) date) unknown) (unknown) (no [...] rules or scores unknown) evaluated: Nexus and [place] head CT rule (unknown) (no (unknown) (unknown) [...] (unknown) (unknown) : 1980 (units (unknown) date) Acct:[id number] unknown) (unknown) (no (unknown) (unknown) Date of 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) MARKETING DEVELOPMENT REPRESENTATIVE (unknown) (no (unknown) (unknown) Emergency Report (units [...] (unknown) date) unknown) (unknown) (no (unknown) (unknown) (units (unknown) date) [address] unknown) [place] [address] (unknown) (no (unknown) (unknown) Ketorolac (units (unkn [...] (unknown) Lymph # (Auto) (units (unknown) date) (8526-2219) /uL unknown) (unknown) (no (unknown) (unknown) Lymph # (Auto) (units (unknown) date) 2600 (8074-9529) unknown) /uL (unknown) (no (unknown) (unknown) Lymph [...] @ 16:24 by Cassy Chan [facility]) (unknown) (no (unknown) (unknown) Medical decision [...] date) EMS unknown) (unknown) (no (unknown) (unknown) [place] # (Auto) (units ( unknown) date) (0-900) /uL unknown) (unknown) (no (unknown) (unknown) [place] # (Auto) 300 (units (unknown) date) (0-900) /uL unknown) (unknown) (no (unknown) (unknown) [place] % (Auto) (units ( unknown) date) (3-14) % unknown) (unknown) (no (unknown) (unknown) [place] % (Auto) 4.4 (units (unknown) date) (3-14) % unknown) (unknown) (no (unknown) (unknown) Narrative (units (unkn own) date) unknown) (unknown) (no (unknown) (unknown) Neuro: normal (units ( unknown) date) speech and unknown) cognition, A+O x3, ambulatory, clear speech (unknown) (no (unknown) (unknown) Neut # (Auto) (units ( unknown) date) (4883-0296) /uL unknown) (unknown) (no (unknown) (unknown) Neut # (Auto) (units ( unknown) date) 3600 (6018-4477) unknown) /uL (unknown) (no (unknown) (unknown) Neut [...] (unknown) (unknown) Urine Specific (units (unknown) date) [place] 1.025 unknown) (unknown) (no (unknown) (unknown) Urine [...] (unknown) date) with one of the unknown) primary care providers. (unknown) (no (unknown) (unknown) [...] (unknown) (unknown) hydrocodone-aceta (units (unknown) date) minophen [[place]] unknown) 5-325 mg tablet (unknown) (no (unknown) [...] with (unknown) (no (unknown) (unknown) mg tablet ([place]) (units (unknown) date) unknown) (unknown) (no (unknown) [...] History date description facility 2022-04-28 00:00 Ex-smoker ([facility] Vital Signs date measurement value units 2022-04-28 [...]
[2022-07-11] MEDS ORDERED: oxyCODONE 5 MG TABLET PO STA (22:13)
--- NOTE | 2022-07-11 22:16 | ED Physician Documentation ---
PD HPI UPPER EXT INJURY - Stated complaint Stated Complaint: L WRIST INJ - Chief complaint Chief Complaint: Trauma Ext - History obtained from History obtained from: Patient - History of Present Illness Location: Left, Forearm, Wrist Pain level max: 8 Pain level now: 8 - Additonal information Additional information: Patient is a 41-year-old female who presents to the emergency department with a left forearm/wrist injury. She states that she was at home when she fell landing on her left forearm into a cast iron stove. She states swelling and pain to the site. Worse with movement, better with rest. Took ibuprofen prior to arrival. No numbness or tingling. No deformity. 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 : Chronic bladder infection, Kidney stones, Other HEENT: None Psych: Depression, Anxiety, Bipolar disorder, Panic attacks, ADD/ADHD, Post traumatic stress disorder Musculoskeletal: Fibromyalgia, Chronic back pain Derm: None - Past Surgical History Past Surgical History: Yes Ortho: Spine surgery, Other /MANAGEMENT SUPERVISOR: section, Hysterectomy, Oophrectomy, Other HEENT: Tonsil/Adenoidectomy - Present Medications Home Medications: Ambulatory Orders Medication Instructions Recorded Confirmed lamoTRIgine [LaMICtal] 150 mg PO TID 05/04/20 02/14/22 Cyclobenzaprine [Flexeril] 10 mg PO TID PRN 02/26/21 02/14/22 Estrogens, Conjugated [Premarin] 0.625 mg PO DAILY 02/26/21 02/14/22 Pantoprazole Sodium 40 mg PO BID 02/26/21 02/14/22 Cefdinir 300 mg PO BID #20 cap 02/14/22 Nystatin Cream [Mycostatin Cream] 1 applic TOP BID #30 gm 02/14/22 Oxycodone HCl/Acetaminophen 1 - 2 each PO Q6H PRN #14 tablet 02/14/22 [Percocet 5-325 mg Tablet] Promethazine [Phenergan] 25 mg PO Q6H PRN #10 tab 02/14/22 Cefdinir 300 mg PO BID #20 cap 02/24/23 Oxycodone HCl/Acetaminophen 1 each PO Q4H PRN #15 tablet 05/19/22 [Percocet 10-325 mg Tablet] Fluconazole 2 tab PO DAILY 14 Days #28 tablet 05/20/22 Pantoprazole Sodium 40 mg PO BID #60 06/02/22 Oxycodone HCl/Acetaminophen 1 each PO Q6H PRN #10 tablet 07/11/22 [Percocet 10-325 mg Tablet] - Allergies Allergies/Adverse Reactions: Allergies Allergy/AdvReac Type Severity Reaction Status Date / Time sulfamethoxazole Allergy Severe Hives Verified 07/11/22 21:21 [From Bactrim] trimethoprim [From Bactrim] Allergy Severe Hives Verified 07/11/22 21:21 azithromycin [From Zithromax] Allergy Anaphylaxis Verified 07/11/22 21:21 cariprazine [From Vraylar] Allergy Unknown Verified 07/11/22 21:21 ciprofloxacin Allergy Anaphylaxis Verified 07/11/22 21:21 dextromethorphan Allergy Hallucinati Verified 07/11/22 21:21 [From Nuedexta] ons quinidine [From Nuedexta] Allergy Hallucinati Verified 07/11/22 21:21 ons lorazepam AdvReac Headache Verified 07/11/22 21:21 - Social History Does the pt smoke?: No Smoking Status: Never smoker Does the pt drink ETOH?: Yes Does the pt have substance abuse?: No - Immunizations Immunizations are current?: Yes - POLST Patient has POLST: No POLST Status: Full Code PD ED PE NORMAL - Vitals Vital signs reviewed: Yes - General General: Alert and oriented X 3, No acute distress - Derm Derm: Warm and dry - Extremities Extremities: Other (L forearm - Tender to palpation of the dorsum of the left forearm, there is swelling and bruising present. Mild abrasion. This is near the dorsal aspect of the forearm. Neurovascular intact. o/w normal exam) - Neuro Neuro: Alert and oriented X 3 Results - Vitals Vitals: Vital Signs - 24 hr 07/11/22 21:17 Temperature 36.8 C Heart Rate 118 H Respiratory 18 Rate Blood Pressure 142/99 H O2 Saturation 94 Oxygen O2 Source Room air - Rads (name of study) R wrist xray Relevant Findings:: Final report received, See rad report PD Medical Decision Making - ED course Complexity details: reviewed results, considered differential, d/w patient ED course: No acute findings on x-ray. We will prescribe pain medication for home. Patient is well-appearing, nontoxic. Neurovascular intact. Appears to be soft tissue contusion. Patient counseled regarding signs and symptoms for which I believe and urgent re-evaluation would be necessary. Patient with good understanding of and agreement to plan and is comfortable going home at this time This document was made in part using voice recognition software. While efforts are made to proofread this document, sound alike and grammatical errors may occur. Departure - Departure Disposition: 01 Home, Self Care Clinical Impression: Forearm contusion Qualifiers: Encounter type: initial encounter Laterality: left Qualified Code(s): S50.12XA - Contusion of left forearm, initial encounter Condition: Good Instructions: ED Contusion Upper Ext Follow-Up: MATHEW NELSON DO [Primary Care Provider] - Within 1 week Prescriptions: Oxycodone HCl/Acetaminophen [Percocet 10-325 mg Tablet] 1 each PO Q6H PRN #10 tablet PRN Reason: pain Comments: Your x-rays do not show any acute abnormalities today. Your prescription was sent to [facility] in [place]. You can use ice as well at home. This should improve over the next few days. I am prescribing a short course of narcotic pain medication for you. These are potentially dangerous and addictive medications that should be used carefully. These medications may constipate you. Take an hltz-[id number] stool softener (docusate) twice daily with plenty of water while taking these medications. If you go 24 hours without a bowel movement, take [id number] miralax, per package instructions. Do not drink or drive while taking these medications. If you received narcotic or sedating medications while in the emergency department, do not drive for 24 hours. Store this medication in a safe, secure place and out of reach of children. It is a violation of federal law to give or sell this medication to another person or to use in a manner other than prescribed. The ED will not refill narcotic prescriptions, including prescriptions lost or stolen. To dispose of unwanted medications: 1. [facility] [address] in [place] has a medication drop box. They accept prescription medications (in pill form) Sunday through Sunday 9:00 a.m. to 5:00 p.m. 2. The [facility] [employer] accepts prescription medications (in pill form only) for disposal year round. Call for more information. 3. Contact the [facility] for the next [facility] sponsored prescription drug collection event. , [phone], or [phone]; Discharge Date/Time: 07/11/22 22:24
--- NOTE | 2022-07-11 22:35 | XRAY Report ---
PROCEDURE: Wrist 4 View LT INDICATIONS: L wrist pain s/p fall TECHNIQUE: 4 views of the wrist were acquired. COMPARISON: 06/17/2021 FINDINGS: Bones: Minimal degenerative changes. No displaced fracture or dislocation. Soft tissues: No suspicious calcifications. IMPRESSION: No acute radiographic abnormality. If there is high concern for occult injury, consider repeat radiog roberta or cross-sectional imaging. Reviewed by: Yusuf Huerta MD on 07/11/2022 10:34 PM PDT Approved by: Yusuf Huerta MD on 07/11/2022 10:34 PM PDT Station ID: [id number]
== END 2022-07-11 22:24 | disposition home or self-care (01) ==
LOC: ED 21:01
DX: S50.12XA Contusion of left forearm, initial encounter (principal); W18.30XA Fall on same level, unspecified, initial encounter; Y92.000 Kitchen of unspecified non-institutional (private) residence as the place of occurrence of the external cause
CPT/HCPCS: 73110; 99283; A9270

== ENCOUNTER 2022-08-04 21:02 | Outpatient (CLI) | payer OTHER | END 2022-08-04 21:03 | disposition critical access hospital (66) | LOC: EMS 21:02 | DX: R41.82 Altered mental status, unspecified (principal); R20.0 Anesthesia of skin; R53.1 Weakness; R47.81 Slurred speech | CPT/HCPCS: A0425; A0429 ==

== ENCOUNTER 2022-09-06 12:52 | Emergency (ER) | payer OTHER ==
[2022-09-06] MEDS ORDERED: KETOROLAC 30 MG/ML VIAL IVP STA (13:23)
[2022-09-06] MEDS ORDERED: SODIUM CHLORIDE 0.9% 1,000 ML IV STA ×2 (13:23→14:23)
[2022-09-06] MEDS ORDERED: DEXAMETHASONE 10 MG/ML VIAL IVP STA (13:28)
[2022-09-06] MEDS ORDERED: PROCHLORPERAZINE 10 MG/2 ML VIAL IVP STA (13:28)
[2022-09-06] MEDS ORDERED: diphenhydrAMINE INJ 50 MG/ML VIAL IVP STA (13:29)
[2022-09-06 13:39] LABS: BASOPHILS % (AUTO) 0.3 %; EOSINOPHILS # (AUTO) 0.1 10^3/uL (0.0-0.7); EOSINOPHILS % (AUTO) 1.6 %; HGB - HEMOGLOBIN 13.6 g/dL (12.0-16.0); LYMPHOCYTES # (AUTO) 2.3 10^3/uL (1.5-3.5); LYMPHOCYTES % (AUTO) 25.8 %; MEAN CORPUSCULAR HGB CONC 31.6 g/dL (32.0-36.0); MEAN CORPUSCULAR VOLUME 82.2 fL (81.0-99.0); MEAN PLATELET VOLUME 9.2 fL (7.9-10.8); MONOCYTES # (AUTO) 0.5 10^3/uL (0.0-1.0); MONOCYTES % (AUTO) 5.3 %; NEUTROPHILS # (AUTO) 5.9 10^3/uL (1.5-6.6); NEUTROPHILS % (AUTO) 66.7 %; PLT - PLATELET COUNT 165 10^3/uL (130-450); RED BLOOD COUNT 5.23 10^6/uL (4.20-5.40); RED CELL DISTRIBUTION WIDTH 14.2 % (12.0-15.0); WHITE BLOOD COUNT 8.8 x10^3/uL (4.8-10.8)
[2022-09-06 14:05] LABS: ALBUMIN 4.1 g/dL (3.2-5.5); BILIRUBIN,TOTAL 0.6 mg/dL (0.2-1.0); CALCIUM 9.4 mg/dL (8.5-10.3); CREATININE 0.5 mg/dL (0.4-1.0); POTASSIUM 4.2 mmol/L (3.5-5.0); TOTAL PROTEIN 8.3 g/dL (6.7-8.2)
[2022-09-06] MEDS ORDERED: HYDROmorphone 1 MG/ML CARPUJECT IVP STA ×2 (14:23→14:55)
--- NOTE | 2022-09-06 14:55 | ED Physician Documentation ---
PD HPI HEADACHE - Stated complaint Stated Complaint: HEADACHE - Chief complaint Chief Complaint: Neuro - History obtained from History obtained from: Patient, Family - History of Present Illness Timing - onset: How many weeks ago (1) Timing - onset during: Rest Timing - duration: Weeks (1) Timing - details: Abrupt onset, Still present Worst headache ever?: No: Worst headache ever? Location: Front Quality: Throbbing Associated symptoms: Nausea, Vomiting, Eye pain. No: Fever, Stiff neck, Weakness, Numbness, Syncope, Seizure, Vision changes Improved by: Rest, Dark room, Quiet Worsened by: Light, Noise, Moving Contributing factors: Hypertension, Recent illness (GI with diarrhea). No: Anticoagulated, Possible carbon monoxide Similar symptoms before: Diagnosis (migraine) Recently seen: Emergency Dept (one month ago for headache and neuro symptoms) - Additional information Additional information: Leatha Cartwright is a 5-year-old female who has a history of complicated migraine with a hemiparesis developing. She has frequent visits to the emergency depar tment for migraine rescue. Today she has migraine that she has had for the past week. She is up been unable to control her symptoms with medications at home and presents to the emergency department for treatment. She has had diarrhea for the past week and she feels that she is dehydrated. Review of Systems Constitutional: denies: Fever Eyes: denies: Decreased vision Ears: denies: Ear pain Nose: reports: Congestion. denies: Rhinorrhea / runny nose Throat: denies: Sore throat Cardiac: denies: Chest pain / pressure, Palpitations Respiratory: denies: Dyspnea, Cough GI: reports: Nausea, Vomiting, Diarrhea. 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: None : Chronic bladder infection, Kidney stones, Other HEENT: None Psych: Depression, Anxiety, Bipolar disorder, Panic attacks, ADD/ADHD, Post traumatic stress disorder Musculoskeletal: Fibromyalgia, Chronic back pain Derm: None - Past Surgical History Past Surgical History: Yes Ortho: Spine surgery, Other /DOCUMENTATION SPECIALIST: section, Hysterectomy, Oophrectomy, Other HEENT: Tonsil/Adenoidectomy - Present Medications Home Medications: Ambulatory Orders Medication Instructions Recorded Confirmed lamoTRIgine [LaMICtal] 150 mg PO TID 05/04/20 02/14/22 Cyclobenzaprine [Flexeril] 10 mg PO TID PRN 02/26/21 02/14/22 Estrogens, Conjugated [Premarin] 0.625 mg PO DAILY 02/26/21 02/14/22 Pantoprazole Sodium 40 mg PO BID 02/26/21 02/14/22 Cefdinir 300 mg PO BID #20 cap 02/14/22 Nystatin Cream [Mycostatin Cream] 1 applic TOP BID #30 gm 02/14/22 Oxycodone HCl/Acetaminophen 1 - 2 each PO Q6H PRN #14 tablet 02/14/22 [Percocet 5-325 mg Tablet] Promethazine [Phenergan] 25 mg PO Q6H PRN #10 tab 02/14/22 Cefdinir 300 mg PO BID #20 cap 05/19/22 Oxycodone HCl/Acetaminophen 1 each PO Q4H PRN #15 tablet 05/19/22 [Percocet 10-325 mg Tablet] Fluconazole 2 tab PO DAILY 14 Days #28 tablet 05/20/22 Pantoprazole Sodium 40 mg PO BID #60 06/02/22 Oxycodone HCl/Acetaminophen 1 each PO Q6H PRN #10 tablet 07/11/22 [Percocet 10-325 mg Tablet] - Allergies Allergies/Adverse Reactions: Allergies Allergy/AdvReac Type Severity Reaction Status Date / Time sulfamethoxazole Allergy Severe Hives Verified 09/06/22 13:01 [From Bactrim] trimethoprim [From Bactrim] Allergy Severe Hives Verified 09/06/22 13:01 azithromycin [From Zithromax] Allergy Anaphylaxis Verified 09/06/22 13:01 cariprazine [From Vraylar] Allergy Unknown Verified 09/06/22 13:01 ciprofloxacin Allergy Anaphylaxis Verified 09/06/22 13:01 dextromethorphan Allergy Hallucinati Verified 09/06/22 13:01 [From Nuedexta] ons quinidine [From Nuedexta] Allergy Hallucinati Verified 09/06/22 13:01 ons lorazepam AdvReac Headache Verified 09/06/22 13:01 - Social History Does the pt smoke?: No Smoking Status: Never smoker Does the pt drink ETOH?: Yes Does the pt have substance abuse?: No - Immunizations Immunizations are current?: Yes - POLST Patient has POLST: No POLST Status: Full Code PD ED PE NORMAL - Vitals Vital signs reviewed: Yes (tachycardic and hypertensive ) - General General: Well developed/nourished, Other (41-year-old female laying supine with a mask over her face moaning in pain) - HEENT HEENT: Atraumatic, PERRL, EOMI - Neck Neck: Supple, no meningeal sign, No bony TTP - Cardiac Cardiac: No murmur, Other (tachy to 110) - Respiratory Respiratory: No respiratory distress, Clear bilaterally - Abdomen Abdomen: Soft, Non tender - Back Back: No CVA TTP, No spinal TTP - Derm Derm: Normal color, Warm and dry, No rash - Extremities Extremities: No deformity, No edema - Neuro Neuro: nutrition internship 2-12 intact, No motor deficit, No sensory deficit Eye Opening: Spontaneous Motor: Obeys Commands Verbal: Oriented GCS Score: 15 - Psych Psych: Other (The mood is hopeless and the affect is flatFollowing treatment the patient has a normal affect and interactive mood) Results - Vitals Vitals: Vital Signs - 24 hr 09/06/22 09/06/22 09/06/22 12:59 13:01 15:11 Temperature 36.3 C L Heart Rate 128 H 120 H 110 H Respiratory 16 22 18 Rate Blood Pressure 178/123 H 143/98 H 123/70 O2 Saturation 96 95 94 Oxygen O2 Source Room air - Labs Labs: Laboratory Tests 09/06/22 09/06/22 13:30 13:30 WBC 8.8 RBC 5.23 Hgb 13.6 Hct 43.0 MCV 82.2 MCH 26.0 L MCHC 31.6 L RDW 14.2 Plt Count 165 MPV 9.2 Neut # (Auto) 5.9 Lymph # (Auto) 2.3 [place] # (Auto) 0.5 Eos # (Auto) 0.1 Baso # (Auto) 0.0 Absolute Nucleated RBC 0.00 Nucleated RBC % 0.0 Sodium 137 Potassium 4.2 Chloride 101 Carbon Dioxide 26 Anion Gap 10.0 BUN 10 Creatinine 0.5 Estimated GFR (MDRD) 137 Glucose 241 H Calcium 9.4 Total Bilirubin 0.6 AST 74 H ALT 45 Alkaline Phosphatase 114 Total Protein 8.3 H Albumin 4.1 Globulin 4.2 Albumin/Globulin Ratio 1.0 Lipase 32 PD Medical Decision Making - ED course Complexity details: considered differential, d/w patient Reviewed Lab Results: We reviewed a complete blood count showing a normal white blood cell count normal hemoglobin hematocrit and platelets showed normal electrolytes normal kidney and liver function and elevated glucose at 241 she had a mild elevation in AST and total protein. These benign-appearing laboratory results indicate a likely benign underlying condition. Her glucose of 241 is concerning for the possibility of significant dehydration. This aided in guiding the amount of treatment directed at hydration. ED course: 41-year-old female with a history of frequent migraine requiring rescue has had complicated migraines and has always responded to treatment. She does have a history of diabetes and appears dehydrated on arrival to the emergency department with a heart rate over 120. IV access was gained the patient was examined and she was administered a migraine cocktail consisting of dexameth asone, Toradol, Compazine, Benadryl and saline. She received a second liter of saline as well. She did require Dilaudid for pain control. Her symptoms improved she was able to sit up and talk. She wants to go home. Departure - Departure Disposition: Home, Self Care Clinical Impression: Dehydration Migraine Qualifiers: Migraine type: without aura Status migrainosus presence: without status migrainosus Intractability: not intractable Qualified Code(s): G43.009 - Migraine without aura, not intractable, without status migrainosus Condition: Stable Instructions: ED Dehydration, ED Headache Migraine Follow-Up: ROHITH Hancock [Provider Group] Comments: Leatha, it looks like you have had another migraine headache and it does look like you are fairly dehydrated today. Resume your usual activities and follow your diabetes closely.
[2022-09-06 16:44] VITALS: BP 120/71
== END 2022-09-06 16:44 | disposition home or self-care (01) ==
LOC: ED 12:52
DX: G43.009 Migraine without aura, not intractable, without status migrainosus (principal); E86.0 Dehydration; E11.65 Type 2 diabetes mellitus with hyperglycemia
CPT/HCPCS: 36415; 80053; 83690; 85025; 96361; 96374; 96375; 99283; J1170; J1200

== ENCOUNTER 2022-09-07 22:42 | Outpatient (CLI) | payer OTHER | END 2022-09-07 23:59 | disposition critical access hospital (66) | LOC: EMS 22:42 | DX: F41.0 Panic disorder [episodic paroxysmal anxiety] (principal); R10.9 Unspecified abdominal pain; R52 Pain, unspecified; W18.2XXA Fall in (into) shower or empty bathtub, initial encounter; Y92.002 Bathroom of unspecified non-institutional (private) residence as the place of occurrence of the external cause | CPT/HCPCS: A0425; A0429 ==

== ENCOUNTER 2022-09-07 22:53 | Emergency (ER) | payer OTHER ==
[2022-09-07] MEDS ORDERED: PROCHLORPERAZINE 10 MG/2 ML VIAL IM STA (23:19)
[2022-09-07] MEDS ORDERED: HYDROmorphone 1 MG/ML CARPUJECT IM STA (23:19)
[2022-09-07] MEDS ORDERED: KETOROLAC 30 MG/ML VIAL IM STA (23:20)
--- NOTE | 2022-09-07 23:22 | ED Physician Documentation ---
History of Present Illness - Stated complaint Stated Complaint: GLF - Chief complaint Chief Complaint: MHE - History obtained from History obtained from: Patient, Family () - Additonal information Additional information: 41yF with Extensive psychiatric history, complex migraines, frequent ED visits for various complaints (see BUD) presents to the ED [facility] for R flank pain radiating up to the top of the head "like a sunburn" per patient, 01/02 severity. also with nausea. patient asking for dilaudid, compazine, toradol specifically. She is concerned she may have kidney stones or a yeast infection since she has had both in the past. when asked how she is feeling, she states, "I was hyperventilating earlier" but that "I'm not having a mental breakdown". Patient is a difficult historian. 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 HAND: section, Hysterectomy, Oophrectomy, Other HEENT: Tonsil/Adenoidectomy - Present Medications Home Medications: Ambulatory Orders Medication Instructions Recorded Confirmed lamoTRIgine [LaMICtal] 150 mg PO TID 05/04/20 02/14/22 Cyclobenzaprine [Flexeril] 10 mg PO TID PRN 02/26/21 02/14/22 Estrogens, Conjugated [Premarin] 0.625 mg PO DAILY 02/26/21 02/14/22 Pantoprazole Sodium 40 mg PO BID 02/26/21 02/14/22 Cefdinir 300 mg PO BID #20 cap 02/14/22 Nystatin Cream [Mycostatin Cream] 1 applic TOP BID #30 gm 02/14/22 Oxycodone HCl/Acetaminophen 1 - 2 each PO Q6H PRN #14 tablet 02/14/22 [Percocet 5-325 mg Tablet] Promethazine [Phenergan] 25 mg PO Q6H PRN #10 tab 02/14/22 Cefdinir 300 mg PO BID #20 cap 05/19/22 Oxycodone HCl/Acetaminophen 1 each PO Q4H PRN #15 tablet 05/19/22 [Percocet 10-325 mg Tablet] Fluconazole 2 tab PO DAILY 14 Days #28 tablet 05/20/22 Pantoprazole Sodium 40 mg PO BID #60 06/02/22 Oxycodone HCl/Acetaminophen 1 each PO Q6H PRN #10 tablet 07/11/22 [Percocet 10-325 mg Tablet] Cefpodoxime Proxetil [Vantin] 200 mg PO Q12H #28 tablet 09/08/22 L.acid/L.casei/B.bif/B.lokesh/Fos 1 each PO QDAC #20 cap 09/08/22 [Probiotic Blend Capsule] - Allergies Allergies/Adverse Reactions: Allergies Allergy/AdvReac Type Severity Reaction Status Date / Time sulfamethoxazole Allergy Severe Hives Verified 09/06/22 13:01 [From Bactrim] trimethoprim [From Bactrim] Allergy Severe Hives Verified 09/06/22 13:01 azithromycin [From Zithromax] Allergy Anaphylaxis Verified 09/06/22 13:01 cariprazine [From Vraylar] Allergy Unknown Verified 09/06/22 13:01 ciprofloxacin Allergy Anaphylaxis Verified 09/06/22 13:01 dextromethorphan Allergy Hallucinati Verified 09/06/22 13:01 [From Nuedexta] ons quinidine [From Nuedexta] Allergy Hallucinati Verified 09/06/22 13:01 ons lorazepam AdvReac Headache Verified 09/06/22 13:01 - Social History Does the pt smoke?: No Smoking Status: Never smoker Does the pt drink ETOH?: Yes Does the pt have substance abuse?: No - Immunizations Immunizations are current?: Yes - POLST Patient has POLST: No POLST Status: Full Code PD ED PE NORMAL - Vitals Vital signs reviewed: Yes - General General: Alert and oriented X 3, No acute distress, Other (large body habitus. tearful appearing) - HEENT HEENT: Atraumatic, PERRL, EOMI - Neck Neck: Supple, no meningeal sign - Abdomen Abdomen: Non tender, Non distended - Back Back: No CVA TTP - Derm Derm: Normal color, Warm and dry - Neuro Neuro: Alert and oriented X 3 - Psych Psych: Other (anxious, tearful affect) Results - Vitals Vitals: Vital Signs - 24 hr 09/07/22 22:59 Temperature 35.7 C L Heart Rate 95 Respiratory 16 Rate Blood Pressure 190/122 H O2 Saturation 100 Oxygen O2 Source Room air - Labs Labs: Laboratory Tests 09/07/22 23:26 Urine Color YELLOW Urine Clarity HAZY Urine pH 5.5 Ur Specific [place] 1.025 Urine Protein 100 H Urine Glucose (UA) 500 H Urine Ketones 15 H Urine Occult Blood SMALL H Urine Nitrite NEGATIVE Urine Bilirubin NEGATIVE Urine Urobilinogen 0.2 (NORMAL) Ur Leukocyte Esterase SMALL H Urine RBC 6-10 H Urine WBC >25 H Ur Squamous Epith Cells FEW Squamous Urine Bacteria Many H Urine Culture Comments INDICATED PD Medical Decision Making - ED course ED course: EMS reports they believed patient was having a panic attack on scene, hyperventilating, crying. They said she has history of stroke like symptoms that spontaneously resolved and are attributed to pseudo-stroke. Also report she was ambulating normally on scene and then "started limping when we got here". Patient herself does not appear to have a limp on my re-exam. Patient is very concerned about kidney stones therefore we will obtain urinalysis and renal ultrasound. She is not displaying classic signs/symptoms f or stones but given her distress we will investigate. IM dilaudid, toradol, compazine provided for pain and nausea with relief. u/a shows blood and uti. renal ultrasound unremarkable with no evidence of hydronephrosis. low suspicion for stones at this time. antibiotics provided for uti and return precautions given. plan to f/u with pcp. Departure - Departure Disposition: 01 Home, Self Care Clinical Impression: Flank pain, Nausea, Hyperventilation, UTI (urinary tract infection) Condition: Stable Instructions: ED Stress React Prescriptions: L.acid/L.casei/B.bif/B.lokesh/Fos [Probiotic Blend Capsule] 1 each PO QDAC #20 cap Cefpodoxime Proxetil [Vantin] 200 mg PO Q12H #28 tablet Comments: You were seen in the emergency department for medical evaluation. You do have a uti and small amount of blood in the urine but your ultrasound showed no kidney issues. Please follow-up with your primary care provider and your psychiatrist. Return to the emergency department if you have other concerns. Electronic prescription sent to [facility]
[2022-09-07 23:51] LABS: BILIRUBIN,URINE NEGATIVE (NEGATIVE); GLUCOSE, URINE (UA) 500 mg/dL (NEGATIVE); KETONES,URINE (UA) 15 mg/dL (NEGATIVE); LEUKOCYTE ESTERASE, URINE SMALL (NEGATIVE); NITRITE,URINE NEGATIVE (NEGATIVE); OCCULT BLOOD,URINE SMALL (NEGATIVE); PH,URINE 5.5 PH (5.0-7.5); PROTEIN,URINE 100 mg/dL (NEGATIVE); UROBILINOGEN,URINE 0.2 (NORMAL) E.U./dL (NORMAL)
[2022-09-08 00:06] LABS: CLARITY,URINE HAZY (CLEAR)
[2022-09-08 00:07] LABS: BACTERIA,URINE Many /HPF (None Seen); SQUAMOUS EPITHELIAL CELL,UR FEW Squamous (<= Few); WBC,URINE >25 /HPF (0-5)
[2022-09-08] MEDS ORDERED: LIDOCAINE 1% 2 ML VIAL MC ONE (00:21)
[2022-09-08] MEDS ORDERED: cefTRIAXone 1 GM VIAL IM STA (00:21)
[2022-09-08] MEDS ORDERED: oxyCODONE/ACET 5/325 Prepack 4 PO STA (00:39)
[2022-09-08] MEDS ORDERED: HYDROmorphone 0.5 MG/0.5 ML SYRINGE IM STA (00:39)
[2022-09-08] MEDS ORDERED: LIDOCAINE 1% 2 ML VIAL ONE (01:07)
[2022-09-08 01:18] VITALS: BP 147/110
--- NOTE | 2022-09-08 01:21 | Ultrasound Report ---
PROCEDURE: Retroperitoneal INDICATIONS: R flank pain, hx kidney stones TECHNIQUE: Real-time scanning was performed of the retroperitoneal organs, with image documentation. COMPARISON: None. FINDINGS: Kidneys: Right kidney measures 15 cm long; left kidney measures 14.6 cm long. Right renal cortical thickness is 1.3 cm; left renal cortical thickness is 1.8 cm. No solid masses, hydronephrosis, or di screte nephrolithiasis. Bladder: Pre-void bladder volume is 267 mL. Patient was able to void. Pre-void images demonstrate no intraluminal masses or stones. On pre-void images, bilateral ureteral jets are noted with color Dop pler interrogation. Miscellaneous: No free abdominal fluid. IMPRESSION: 1. No evidence of hydronephrosis. Reviewed by: Ken Dey MD on 09/08/2022 1:20 AM PDT Approved by: Ken Dey MD on 09/08/2022 1:20 AM PDT Station ID: [id number]
== END 2022-09-08 01:15 | disposition home or self-care (01) ==
LOC: EDUNIT# → ED 22:53
DX: R10.9 Unspecified abdominal pain (principal); R11.0 Nausea; R06.4 Hyperventilation; R73.9 Hyperglycemia, unspecified; M54.50 Low back pain, unspecified; N30.01 Acute cystitis with hematuria
CPT/HCPCS: 36415; 74177; 76770; 80053; 81001; 83690; 84703; 85025; 87077; 87086; 87181; 96361; 96372; 96374; 96375; 99283; 99284; J1170; J1815; Q9967

== ENCOUNTER 2022-09-08 07:24 | Emergency (ER) | payer OTHER ==
[2022-09-08] MEDS ORDERED: HYDROmorphone 1 MG/ML CARPUJECT IVP STA (07:41)
[2022-09-08] MEDS ORDERED: SODIUM CHLORIDE 0.9% 1,000 ML IV STA (07:41)
[2022-09-08] MEDS ORDERED: ONDANSETRON 4 MG/2 ML VIAL IVP STA (07:41)
--- NOTE | 2022-09-08 07:44 | ED Physician Documentation ---
History of Present Illness - Stated complaint Stated Complaint: FEMALE - Chief complaint Chief Complaint: General - Additonal information Additional information: Patient is 41-year-old female presenting to the emergency department with right- sided flank pain. Seen here approximately 8 hours ago, diagnosed with UTI. Ultrasonography of the right flank at that time negative for any indications of kidney stone/retroperitoneal hematoma/hemorrhage. Returns reporting that her pain is"Multiplying". He states has been taking the cefpodoxime mean as well as the Percocet provided for her during her previous ER evaluation with no relief. Specifically states"I do not care I am here for pain control" as well as "I feel like I am in a sauna from my back to the top of my head. 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 : Chronic bladder infection, Kidney stones, Other HEENT: None Psych: Depression, Anxiety, Bipolar disorder, Panic attacks, ADD/ADHD, Post traumatic stress disorder Musculoskeletal: Fibromyalgia, Chronic back pain Derm: None - Past Surgical History Past Surgical History: Yes Ortho: Spine surgery, Other /PROGRAM AIDE: section, Hysterectomy, Oophrectomy, Other HEENT: Tonsil/Adenoidectomy - Present Medications Home Medications: Ambulatory Orders Medication Instructions Recorded Confirmed lamoTRIgine [LaMICtal] 150 mg PO TID 05/04/20 02/14/22 Cyclobenzaprine [Flexeril] 10 mg PO TID PRN 02/26/21 02/14/22 Estrogens, Conjugated [Premarin] 0.625 mg PO DAILY 02/26/21 02/14/22 Pantoprazole Sodium 40 mg PO BID 02/26/21 02/14/22 Cefdinir 300 mg PO BID #20 cap 02/14/22 Nystatin Cream [Mycostatin Cream] 1 applic TOP BID #30 gm 02/14/22 Oxycodone HCl/Acetaminophen 1 - 2 each PO Q6H PRN #14 tablet 02/14/22 [Percocet 5-325 mg Tablet] Promethazine [Phenergan] 25 mg PO Q6H PRN #10 tab 02/14/22 Cefdinir 300 mg PO BID #20 cap 05/19/22 Oxycodone HCl/Acetaminophen 1 each PO Q4H PRN #15 tablet 05/19/22 [Percocet 10-325 mg Tablet] Fluconazole 2 tab PO DAILY 14 Days #28 tablet 05/20/22 Pantoprazole Sodium 40 mg PO BID #60 06/02/22 Oxycodone HCl/Acetaminophen 1 each PO Q6H PRN #10 tablet 07/11/22 [Percocet 10-325 mg Tablet] Cefpodoxime Proxetil [Vantin] 200 mg PO Q12H #28 tablet 09/08/22 Ketorolac [Toradol] 10 mg PO Q6H #30 tablet 09/08/22 L.acid/L.casei/B.bif/B.lokesh/Fos 1 each PO QDAC #20 cap 09/08/22 [Probiotic Blend Capsule] - Allergies Allergies/Adverse Reactions: Allergies Allergy/AdvReac Type Severity Reaction Status Date / Time sulfamethoxazole Allergy Severe Hives Verified 09/08/22 07:33 [From Bactrim] trimethoprim [From Bactrim] Allergy Severe Hives Verified 09/08/22 07:33 azithromycin [From Zithromax] Allergy Anaphylaxis Verified 09/08/22 07:33 cariprazine [From Vraylar] Allergy Unknown Verified 09/08/22 07:33 ciprofloxacin Allergy Anaphylaxis Verified 09/08/22 07:33 dextromethorphan Allergy Hallucinati Verified 09/08/22 07:33 [From Nuedexta] ons quinidine [From Nuedexta] Allergy Hallucinati Verified 09/08/22 07:33 ons lorazepam AdvReac Headache Verified 09/08/22 07:33 - Social History Does the pt smoke?: No Smoking Status: Never smoker Does the pt drink ETOH?: Yes Does the pt have substance abuse?: No - Immunizations Immunizations are current?: Yes - POLST Patient has POLST: No POLST Status: Full Code PD ED PE NORMAL - General General: Alert and oriented X 3, Other (Patient sitting up at the side of the bed, rocking back and forth.). No: No acute distress - HEENT HEENT: Atraumatic - Neck Neck: Supple, no meningeal sign - Cardiac Cardiac: RRR - Respiratory Respiratory: No respiratory distress - Back Back: No spinal TTP, Other (Right-sided low back and paraspinal muscle tenderness.) Results - Vitals Vitals: Vital Signs - 24 hr 09/08/22 07:30 Temperature 37.0 C Heart Rate 111 H Respiratory 16 Rate Blood Pressure 191/117 H O2 Saturation 97 Oxygen O2 Source Room air - Labs Labs: Laboratory Tests 09/08/22 09/08/22 09/08/22 07:51 07:51 07:51 WBC 10.9 H RBC 5.01 Hgb 13.1 Hct 40.6 MCV 81.0 MCH 26.1 L MCHC 32.3 RDW 14.4 Plt Count 217 MPV 9.5 Neut # (Auto) 6.8 H Lymph # (Auto) 3.2 [place] # (Auto) 0.7 Eos # (Auto) 0.1 Baso # (Auto) 0.0 Absolute Nucleated RBC 0.00 Nucleated RBC % 0.0 Sodium 133 L Potassium 3.9 Chloride 98 L Carbon Dioxide 22 Anion Gap 13.0 BUN 10 Creatinine 0.7 Estimated GFR (MDRD) 93 Glucose 500 H* Calcium 9.3 Total Bilirubin 0.6 AST 63 H ALT 37 Alkaline Phosphatase 112 Total Protein 8.8 H Albumin 4.3 Globulin 4.5 H Albumin/Globulin Ratio 1.0 Lipase 27 Serum HCG, Qual NEGATIVE PD Medical Decision Making - ED course Complexity details: reviewed results, re-evaluated patient, considered differential, d/w patient ED course: Patient is 41-year-old female presenting to the emergency department with worsening right-sided flank pain after recent evaluation and diagnosis of urinary tract infection. Patient has tachycardia on arrival to the emergency department. Otherwise afebrile, hemodynamically stable. No point tenderness to the spine but definite tenderness to the right paraspinal muscles on exam. Labs obtained demonstrate a downtrending white blood cell count. Patient did notably have significant hyperglycemia with glucose greater than 500. She reports that she is not currently taking her diabetic medications because she has had poor reactions to metformin in the past. CT abdomen pelvis negative for acute enter abdominal or pelvic pathology. Patient given single dose hydromorphone, IV hydration and Compazine. On reevaluation resting comfortably and in no acute distress. All results communicated directly with patient. Patient continued to ask for "a small prescription of Percocet to go home with". I explained that I would not be writing for schedule to her narcotic medications given that she received narcotics from the emergency department less than 8 hours ago. Will be prescribing oral Toradol, with encouragement to use acetaminophen at home for her right-sided flank pain. Patient given instructions to contact her primary care doctor today to discuss blood sugar monitoring as well as to arrange plans for long-term management of her blood sugars as she is intolerant to metformin. Clear return precautions given. Departure - Departure Disposition: Home, Self Care Clinical Impression: Hyperglycemia Back pain Qualifiers: Back pain location: low back pain Chronicity: unspecified Back pain laterality: right Sciatica presence: without sciatica Qualified Code(s): M54.50 - Low back pain, unspecified UTI (urinary tract infection) Qualifiers: Urinary tract infection type: acute cystitis Hematuria presence: with hematuria Qualified Code(s): N30.01 - Acute cystitis with hematuria Instructions: ANTI-INFLAMMATORY, General Prescriptions: Ketorolac [Toradol] 10 mg PO Q6H #30 tablet Comments: Thank you for allowing us to care for you today at [facility]. Today in the emergency department your evaluated for any possible life- threatening medical emergency. Overall the testing the emergency department today was reassuring. Your blood work demonstrated an improvement in your previously elevated white blood cell count. The CT scan of your abdomen and pelvis did not show any surgical or life-threatening medical emergency. Your blood sugars were significantly elevated here in the emergency department. This is not uncommon in the setting of urinary tract infection. It is important that you continue take your previously prescribed antibiotics. It is also very important that you contact your primary care doctor today in order to make follow-up for recheck of your blood sugars as well as to establish a long-term plan for blood sugar management. I have written a prescription for oral Toradol, strong nonsteroidal anti- inflammatory medication. This was sent to your preferred pharmacy, [facility] in [place]. Please do not take this in conjunction with your previously prescribed Mobic. If it anytime you have new or worsening symptoms please do not hesitate to return.
[2022-09-08] MEDS ORDERED: iohexoL-300 100 ML VIAL ONE (07:49)
[2022-09-08] MEDS ORDERED: PROCHLORPERAZINE 10 MG/2 ML VIAL IVP STA (07:55)
[2022-09-08 08:03] LABS: BASOPHILS % (AUTO) 0.3 %; EOSINOPHILS # (AUTO) 0.1 10^3/uL (0.0-0.7); EOSINOPHILS % (AUTO) 1.3 %; HCT - HEMATOCRIT 40.6 % (37.0-47.0); HGB - HEMOGLOBIN 13.1 g/dL (12.0-16.0); LYMPHOCYTES # (AUTO) 3.2 10^3/uL (1.5-3.5); LYMPHOCYTES % (AUTO) 28.8 %; MEAN CORPUSCULAR HEMOGLOBIN 26.1 pg (27.0-31.0); MEAN CORPUSCULAR HGB CONC 32.3 g/dL (32.0-36.0); MEAN PLATELET VOLUME 9.5 fL (7.9-10.8); MONOCYTES # (AUTO) 0.7 10^3/uL (0.0-1.0); MONOCYTES % (AUTO) 6.7 %; NEUTROPHILS # (AUTO) 6.8 10^3/uL (1.5-6.6); NEUTROPHILS % (AUTO) 62.4 %; PLT - PLATELET COUNT 217 10^3/uL (130-450); RED BLOOD COUNT 5.01 10^6/uL (4.20-5.40); RED CELL DISTRIBUTION WIDTH 14.4 % (12.0-15.0); WHITE BLOOD COUNT 10.9 x10^3/uL (4.8-10.8)
[2022-09-08 08:21] LABS: ALBUMIN 4.3 g/dL (3.2-5.5); BILIRUBIN,TOTAL 0.6 mg/dL (0.2-1.0); CALCIUM 9.3 mg/dL (8.5-10.3); CREATININE 0.7 mg/dL (0.4-1.0); POTASSIUM 3.9 mmol/L (3.5-5.0); TOTAL PROTEIN 8.8 g/dL (6.7-8.2)
[2022-09-08 08:29] LABS: HCG,QUALITATIVE BLOOD NEGATIVE
[2022-09-08] MEDS ORDERED: INSULIN REGULAR HUMAN 300 UNIT/3 ML VIAL SUBQ STA (08:30)
--- NOTE | 2022-09-08 09:02 | CT Report ---
PROCEDURE: ABDOMEN/PELVIS W INDICATIONS: Flank pain CONTRAST: 100ml omni 300 TECHNIQUE: After the administration of IV contrast, 5 mm thick sections acquired from the diaphragms to the symp hysis. 5 mm thick coronal and sagittal reformats were acquired. For radiation dose reduction, the f ollowing was used: automated exposure control, adjustment of mA and/or kV according to patient size. COMPARISON: Ultrasound of kidneys dated 09/07/2022. CT of abdomen and pelvis dated 07/25/2021 FINDINGS: Image quality: Excellent. Lung bases and heart: A few scattered atelectasis in posterior lateral periphery of bilateral lung ba ses are seen. Heart size is mildly enlarged, no pericardial effusion.. Liver: There is hepatomegaly and moderate hepatic steatosis. No discrete hepatic lesion. Gallbladder and biliary tree: Gallbladder is within normal limits. No biliary ductal dilatation. Spleen: There is splenomegaly, no discrete splenic lesion. Pancreas: No pancreatic ductal dilation. Adrenals: No adrenal nodule. Kidneys and ureters: No hydronephrosis. No renal cystic lesion which requires follow up. No solid mas s. Bowel and peritoneum: No bowel distension. No pathologic free fluid. Appendix is visualized and is wi thin normal limits. Mild descending and sigmoid colon diverticulosis is seen without colonic wall thi ckening or mesenteric fat stranding. No abscess collection. No free fluid of free air. Lymph nodes: No central or retroperitoneal adenopathy. Vessels: No infrarenal aortic aneurysm. PELVIS Reproductive organs: Unremarkable. Bladder: No abnormal wall thickening. Urinary bladder is well-distended. Pelvic lymph nodes: No pelvic adenopathy by size criteria. Bones: No aggressive osseous abnormality. Other: Small umbilical hernia is seen containing fat only. No significant inguinal hernia.. IMPRESSION: 1. Hepatosplenomegaly, no discrete hepatic or splenic lesion. Moderate hepatic steatosis. 2. No bowel obstruction or abnormal bowel wall thickening. No abscess collection. No free fluid of fr ee air. Normal appendix. 3. No renal stones or hydronephrosis. Distended urinary bladder. No bladder wall abnormalities. Reviewed by: Bryce Boateng MD on 09/08/2022 9:01 AM PDT Approved by: Bryce Boateng MD on 09/08/2022 9:01 AM PDT Station ID: [id number]
[2022-09-08] MEDS ORDERED: iohexoL-300 100 ML VIAL IVP ONE (09:10)
[2022-09-08 09:33] VITALS: BP 149/97
== END 2022-09-08 09:46 | disposition home or self-care (01) ==
LOC: ED 07:24
DX: R73.9 Hyperglycemia, unspecified (principal); M54.50 Low back pain, unspecified; N30.01 Acute cystitis with hematuria
CPT/HCPCS: 36415; 80053; 83690; 84703; 85025; 96361; 96374; 96375; 99284

== ENCOUNTER 2022-09-13 19:29 | Emergency (ER) | payer OTHER ==
--- OUTSIDE RECORDS SUMMARY | 2022-09-13 19:46 | EXTERNAL MEDICAL SUMMARY RPT | Continuity of Care Document ---
Author Name Unknown Address [address] [place] [address] Phone Organization [facility] Address [address] [place] [address] Phone Problems date description facility 2022-09-12 12:29 Pain in right hip [facility]
--- NOTE | 2022-09-13 20:17 | ED Physician Documentation ---
History of Present Illness - Stated complaint Stated Complaint: L SIDE PX/SOA - Chief complaint Chief Complaint: General - History obtained from History obtained from: Patient - History of Present Illness Pain level max: 6 Pain level now: 5 - Additonal information Additional information: 41-year-old female presents to the emergency department with multiple complaints. She states that over the past month she has had increases in her migraine headaches, tingling in her bilateral arms, mainly associated with her headaches. She also states that she has been treated for UTI but feels like she is having bladder spasms today. She also states that she has been having intermittent sharp, central, nonradiating chest pain. She states she also feels like she has "adrenaline shots". She states she feels like she has pneumonia and has a mild dry cough. No fevers. No chills. No rhinorrhea or congestion. Denies any possibility of . She states that she smokes occasionally, "like 6 cigarettes/month". She denies any drug use. Denies any alcohol use other than occasional. She states that she does have Xanax for anxiety and medication for muscle relaxants at home but has not used it. 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 : Chronic bladder infection, Kidney stones, Other HEENT: None Psych: Depression, Anxiety, Bipolar disorder, Panic attacks, ADD/ADHD, Post traumatic stress disorder Musculoskeletal: Fibromyalgia, Chronic back pain Derm: None - Past Surgical History Past Surgical History: Yes Ortho: Spine surgery, Other /FRUIT SORTER: section, Hysterectomy, Oophrectomy, Other HEENT: Tonsil/Adenoidectomy - Present Medications Home Medications: Ambulatory Orders Medication Instructions Recorded Confirmed lamoTRIgine [LaMICtal] 150 mg PO TID 05/04/20 02/14/22 Cyclobenzaprine [Flexeril] 10 mg PO TID PRN 02/26/21 02/14/22 Estrogens, Conjugated [Premarin] 0.625 mg PO DAILY 02/26/21 02/14/22 Pantoprazole Sodium 40 mg PO BID 02/26/21 02/14/22 Nystatin Cream [Mycostatin Cream] 1 applic TOP BID #30 gm 02/14/22 Promethazine [Phenergan] 25 mg PO Q6H PRN #10 tab 02/14/22 Ketorolac [Toradol] 10 mg PO Q6H #30 tablet 09/08/22 L.acid/L.casei/B.bif/B.lokesh/Fos 1 each PO QDAC #20 cap 09/08/22 [Probiotic Blend Capsule] - Allergies Allergies/Adverse Reactions: Allergies Allergy/AdvReac Type Severity Reaction Status Date / Time sulfamethoxazole Allergy Severe Hives Verified 09/13/22 19:33 [From Bactrim] trimethoprim [From Bactrim] Allergy Severe Hives Verified 09/13/22 19:33 azithromycin [From Zithromax] Allergy Anaphylaxis Verified 09/13/22 19:33 cariprazine [From Vraylar] Allergy Unknown Verified 09/13/22 19:33 ciprofloxacin Allergy Anaphylaxis Verified 09/13/22 19:33 dextromethorphan Allergy Hallucinati Verified 09/13/22 19:33 [From Nuedexta] ons quinidine [From Nuedexta] Allergy Hallucinati Verified 09/13/22 19:33 ons lorazepam AdvReac Headache Verified 09/13/22 19:33 - Social History Does the pt smoke?: No Smoking Status: Never smoker Does the pt drink ETOH?: Yes Does the pt have substance abuse?: No - Immunizations Immunizations are current?: Yes - POLST Patient has POLST: No POLST Status: Full Code PD ED PE NORMAL - Vitals Vital signs reviewed: Yes - General General: Alert and oriented X 3, No acute distress, Well developed/nourished - HEENT HEENT: PERRL, Moist mucous membranes - Neck Neck: Supple, no meningeal sign - Cardiac Cardiac: RRR, Strong equal pulses - Respiratory Respiratory: No respiratory distress, Clear bilaterally - Abdomen Abdomen: Soft, Non tender, Non distended - Derm Derm: Warm and dry, No rash - Extremities Extremities: No edema, No calf tenderness / cord - Neuro Neuro: Alert and oriented X 3 - Psych Psych: Normal mood, Normal affect Results - Vitals Vitals: Vital Signs - 24 hr 09/13/22 09/13/22 09/13/22 19:33 19:44 20:09 Temperature 36.5 C Heart Rate 113 H Respiratory 24 20 19 Rate Blood Pressure 200/120 H O2 Saturation 98 09/13/22 09/13/22 09/13/22 20:14 20:38 20:46 Temperature Heart Rate 108 H Respiratory 20 22 Rate Blood Pressure 162/117 H O2 Saturation 98 09/13/22 09/13/22 09/13/22 21:42 22:52 23:00 Temperature 36.4 C L Heart Rate 103 H 103 H Respiratory 20 19 Rate Blood Pressure 150/109 H 165/97 H O2 Saturation 97 95 Oxygen O2 Source Room air - EKG (time done) 2028 EKG releavant findings:: EKG personally interpreted by author of this note. Relevant findings are: Rate: Rate (enter#) (109) Rhythm: Sinus tachycardia [place]: Normal Intervals: Normal [place] QRS: Normal Ischemia: Normal ST segments Computer interpretation: Agree with computer - Labs Labs: Laboratory Tests 09/13/22 09/13/22 09/13/22 20:05 20:25 20:25 WBC RBC Hgb Hct MCV MCH MCHC RDW Plt Count MPV Neut # (Auto) Lymph # (Auto) [place] # (Auto) Eos # (Auto) Baso # (Auto) Absolute Nucleated RBC Nucleated RBC % Sodium 138 Potassium 4.1 Chloride 103 Carbon Dioxide 23 Anion Gap 12.0 BUN 7 Creatinine 0.5 Estimated GFR (MDRD) 137 Glucose 230 H Calcium 9.3 Magnesium 2.1 Total Bilirubin 0.8 AST 101 H ALT 49 Alkaline Phosphatase 147 H Total Creatine Kinase 145 Troponin I High Sens Total Protein 8.8 H Albumin 4.2 Globulin 4.6 H Albumin/Globulin Ratio 0.9 L Lipase 40 TSH 1.03 Urine Color Urine Clarity Urine pH Ur Specific [place] Urine Protein Urine Glucose (UA) Urine Ketones Urine Occult Blood Urine Nitrite Urine Bilirubin Urine Urobilinogen Ur Leukocyte Esterase Urine RBC Urine WBC Ur Squamous Epith Cells Urine Bacteria Urine Yeast Ur Microscopic Review Urine Culture Comments Urine HCG, Qual Nasal Adenovirus (PCR) NOT DETECTED Nasal B. parapertussis DNA (PCR) NOT DETECTED Nasal Coronavir 229E PCR NOT DETECTED Nasal Coronavir HKU1 PCR NOT DETECTED Nasal Coronavir NL63 PCR NOT DETECTED Nasal Coronavir OC43 PCR NOT DETECTED Nasal Enterovir/Rhinovir PCR NOT DETECTED Nasal Influenza B PCR NOT DETECTED Nasal Influenza A PCR NOT DETECTED Nasal Parainfluen 1 PCR NOT DETECTED Nasal Parainfluen 2 PCR NOT DETECTED Nasal Parainfluen 3 PCR NOT DETECTED Nasal Parainfluen 4 PCR NOT DETECTED Nasal RSV (PCR) NOT DETECTED Nasal B.pertussis DNA PCR NOT DETECTED Nasal C.pneumoniae (PCR) NOT DETECTED Feng Human Metapneumo PCR NOT DETECTED Nasal M.pneumoniae (PCR) NOT DETECTED Nasal SARS-CoV-2 (PCR) NOT DETECTED Last Dose Date Last Dose Time Salicylates < 6.0 Urine Opiates Screen Ur Oxycodone Screen Urine Methadone Screen Ur Propoxyphene Screen Acetaminophen < 10 L Ur Barbiturates Screen Valproic Acid Ur Tricyclics Screen Ur Phencyclidine Scrn Ur Amphetamine Screen U Methamphetamines Scrn U Benzodiazepines Scrn Urine Cocaine Screen U Cannabinoids Screen Ethyl Alcohol < 5.0 09/13/22 09/13/22 09/13/22 20:25 20:25 21:16 WBC 8.8 RBC 5.13 Hgb 13.5 Hct 41.1 MCV 80.1 L MCH 26.3 L MCHC 32.8 RDW 14.3 Plt Count 227 MPV 9.1 Neut # (Auto) 4.3 Lymph # (Auto) 3.7 H [place] # (Auto) 0.5 Eos # (Auto) 0.2 Baso # (Auto) 0.0 Absolute Nucleated RBC 0.00 Nucleated RBC % 0.0 Sodium Potassium Chloride Carbon Dioxide Anion Gap BUN Creatinine Estimated GFR (MDRD) Glucose Calcium Magnesium Total Bilirubin AST ALT Alkaline Phosphatase Total Creatine Kinase Troponin I High Sens 2.9 Total Protein Albumin Globulin Albumin/Globulin Ratio Lipase TSH Urine Color Urine Clarity Urine pH Ur Specific [place] Urine Protein Urine Glucose (UA) Urine Ketones Urine Occult Blood Urine Nitrite Urine Bilirubin Urine Urobilinogen Ur Leukocyte Esterase Urine RBC Urine WBC Ur Squamous Epith Cells Urine Bacteria Urine Yeast Ur Microscopic Review Urine Culture Comments Urine HCG, Qual Nasal Adenovirus (PCR) Nasal B. parapertussis DNA (PCR) Nasal Coronavir 229E PCR Nasal Coronavir HKU1 PCR Nasal Coronavir NL63 PCR Nasal Coronavir OC43 PCR Nasal Enterovir/Rhinovir PCR Nasal Influenza B PCR Nasal Influenza A PCR Nasal Parainfluen 1 PCR Nasal Parainfluen 2 PCR Nasal Parainfluen 3 PCR Nasal Parainfluen 4 PCR Nasal RSV (PCR) Nasal B.pertussis DNA PCR Nasal C.pneumoniae (PCR) Feng Human Metapneumo PCR Nasal M.pneumoniae (PCR) Nasal SARS-CoV-2 (PCR) Last Dose Date Not Reportable Last Dose Time Not Reportable Salicylates Urine Opiates Screen Ur Oxycodone Screen Urine Methadone Screen Ur Propoxyphene Screen Acetaminophen Ur Barbiturates Screen Valproic Acid 24.3 Ur Tricyclics Screen Ur Phencyclidine Scrn Ur Amphetamine Screen U Methamphetamines Scrn U Benzodiazepines Scrn Urine Cocaine Screen U Cannabinoids Screen Ethyl Alcohol 09/13/22 21:31 WBC RBC Hgb Hct MCV MCH MCHC RDW Plt Count MPV Neut # (Auto) Lymph # (Auto) [place] # (Auto) Eos # (Auto) Baso # (Auto) Absolute Nucleated RBC Nucleated RBC % Sodium Potassium Chloride Carbon Dioxide Anion Gap BUN Creatinine Estimated GFR (MDRD) Glucose Calcium Magnesium Total Bilirubin AST ALT Alkaline Phosphatase Total Creatine Kinase Troponin I High Sens Total Protein Albumin Globulin Albumin/Globulin Ratio Lipase TSH Urine Color YELLOW Urine Clarity HAZY Urine pH 6.0 Ur Specific [place] 1.020 Urine Protein 30 H Urine Glucose (UA) >=1000 H Urine Ketones 15 H Urine Occult Blood NEGATIVE Urine Nitrite NEGATIVE Urine Bilirubin NEGATIVE Urine Urobilinogen 0.2 (NORMAL) Ur Leukocyte Esterase NEGATIVE Urine RBC 6-10 H Urine WBC 0-3 Ur Squamous Epith Cells MOD Squamous H Urine Bacteria Rare Urine Yeast PRESENT Ur Microscopic Review INDICATED Urine Culture Comments NOT INDICATED Urine HCG, Qual NEGATIVE Nasal Adenovirus (PCR) Nasal B. parapertussis DNA (PCR) Nasal Coronavir 229E PCR Nasal Coronavir HKU1 PCR Nasal Coronavir NL63 PCR Nasal Coronavir OC43 PCR Nasal Enterovir/Rhinovir PCR Nasal Influenza B PCR Nasal Influenza A PCR Nasal Parainfluen 1 PCR Nasal Parainfluen 2 PCR Nasal Parainfluen 3 PCR Nasal Parainfluen 4 PCR Nasal RSV (PCR) Nasal B.pertussis DNA PCR Nasal C.pneumoniae (PCR) Feng Human Metapneumo PCR Nasal M.pneumoniae (PCR) Nasal SARS-CoV-2 (PCR) Last Dose Date Last Dose Time Salicylates Urine Opiates Screen NEGATIVE Ur Oxycodone Screen NEGATIVE Urine Methadone Screen NEGATIVE Ur Propoxyphene Screen NEGATIVE Acetaminophen Ur Barbiturates Screen NEGATIVE Valproic Acid Ur Tricyclics Screen NEGATIVE Ur Phencyclidine Scrn NEGATIVE Ur Amphetamine Screen NEGATIVE U Methamphetamines Scrn NEGATIVE U Benzodiazepines Scrn POSITIVE H Urine Cocaine Screen NEGATIVE U Cannabinoids Screen NEGATIVE Ethyl Alcohol PD Medical Decision Making - ED course Complexity details: considered differential, d/w patient ED course: 41-year-old female with what appears to be a vaginal yeast infection, likely secondary to recent antibiotic use. She initially agreed to an x-ray but radiology was quite backed up, as she declines the x-ray. I think her risk of pneumonia is low given her lack of cough and fever. Lungs are clear to auscultation bilaterally. No hypoxia or respiratory distress. Labs are improving from prior. Urinalysis does not show any evidence of continued infection. Patient was given Compazine and nausea and vomiting resolved. Tolerating p.o. without difficulty here. We will have her follow-up with her doctor for further care. Patient counseled regarding signs and symptoms for which I believe and urgent re-evaluation would be necessary. Patient with good understanding of and agreement to plan and is comfortable going home at this time This document was made in part using voice recognition software. While efforts are made to proofread this document, sound alike and grammatical errors may occur. Departure - Departure Disposition: 01 Home, Self Care Clinical Impression: Vaginal yeast infection, Pelvic pain in female Vomiting Qualifiers: Vomiting type: unspecified Nausea presence: with nausea Qualified Code(s): R11.2 - Nausea with vomiting, unspecified Condition: Good Instructions: ED Diet Vomiting Diarrhea, ED Vaginal Infec Fungal [place] Follow-Up: your,doctor in 1 week [Other] - Within 1 week Comments: Please follow-up with your doctor for further care. Please return if you worsen. You were treated for a vaginal yeast infection tonight. Go home and rest. Your laboratory tests are improving and it does not appear that you have a urinary tract infection anymore. Discharge Date/Time: 09/13/22 23:15
[2022-09-13 20:45] LABS: ACETAMINOPHEN < 10 ug/mL (10-30); ALBUMIN 4.2 g/dL (3.2-5.5); ALBUMIN/GLOBULIN RATIO 0.9 (1.0-2.2); ALKALINE PHOSPHATASE 147 IU/L (42-121); ALT ALANINE AMINOTRANSFERASE 49 IU/L (10-60); AST ASPARTATE AMINOTRANSFERASE 101 IU/L (10-42); BILIRUBIN,TOTAL 0.8 mg/dL (0.2-1.0); BUN - BLOOD UREA NITROGEN 7 mg/dL (6-20); CALCIUM 9.3 mg/dL (8.5-10.3); CARBON DIOXIDE - CO2 23 mmol/L (21-32); CHLORIDE 103 mmol/L (101-111); CK- CREATINE KINASE 145 IU/L (22-269); CREATININE 0.5 mg/dL (0.4-1.0); ETOH - ETHANOL < 5.0 mg/dL; GFR - MDRD 137 (>89); GLUCOSE 230 mg/dL (70-100); LIPASE 40 U/L (22-51); MAGNESIUM 2.1 mg/dL (1.7-2.8); POTASSIUM 4.1 mmol/L (3.5-5.0); SALICYLATE < 6.0 mg/dL; SODIUM 138 mmol/L (135-145); TOTAL PROTEIN 8.8 g/dL (6.7-8.2)
[2022-09-13 20:51] LABS: VALPROIC ACID (DEPAKOTE) 24.3 ug/mL
[2022-09-13 21:22] LABS: BASOPHILS % (AUTO) 0.5 %; EOSINOPHILS # (AUTO) 0.2 10^3/uL (0.0-0.7); EOSINOPHILS % (AUTO) 2.4 %; HCT - HEMATOCRIT 41.1 % (37.0-47.0); HGB - HEMOGLOBIN 13.5 g/dL (12.0-16.0); LYMPHOCYTES # (AUTO) 3.7 10^3/uL (1.5-3.5); LYMPHOCYTES % (AUTO) 42.1 %; MEAN CORPUSCULAR HEMOGLOBIN 26.3 pg (27.0-31.0); MEAN CORPUSCULAR HGB CONC 32.8 g/dL (32.0-36.0); MEAN CORPUSCULAR VOLUME 80.1 fL (81.0-99.0); MEAN PLATELET VOLUME 9.1 fL (7.9-10.8); MONOCYTES # (AUTO) 0.5 10^3/uL (0.0-1.0); MONOCYTES % (AUTO) 5.3 %; NEUTROPHILS # (AUTO) 4.3 10^3/uL (1.5-6.6); NEUTROPHILS % (AUTO) 49.1 %; PLT - PLATELET COUNT 227 10^3/uL (130-450); RED BLOOD COUNT 5.13 10^6/uL (4.20-5.40); RED CELL DISTRIBUTION WIDTH 14.3 % (12.0-15.0); WHITE BLOOD COUNT 8.8 x10^3/uL (4.8-10.8)
[2022-09-13 21:31] LABS: B. PARAPERTUSSIS- RESP PCR PAN NOT DETECTED; B. PERTUSSIS- RESP PCR PANEL NOT DETECTED; C. PNEUMONIAE- RESP PCR PANEL NOT DETECTED; CORONAVIRUS 229E-RESP PCR NOT DETECTED; CORONAVIRUS HKU1-RESP PCR NOT DETECTED; CORONAVIRUS NL63-RESP PCR NOT DETECTED; CORONAVIRUS OC43-RESP PCR NOT DETECTED; HUMAN METAPNEUMOVIRUS NOT DETECTED; INFLUENZA A- RESP PCR PANEL NOT DETECTED; INFLUENZA B - RESP PCR PANEL NOT DETECTED; M. PNEUMONIAE- RESP PCR PANEL NOT DETECTED; PARAINFLUENZA VIRUS 1 NOT DETECTED; PARAINFLUENZA VIRUS 2 NOT DETECTED; PARAINFLUENZA VIRUS 3 NOT DETECTED; PARAINFLUENZA VIRUS 4 NOT DETECTED; RHINOVIRUS/ENTEROVIRUS NOT DETECTED; RSV- RESP PCR PANEL NOT DETECTED; SARS-CoV-2 -RESP PCR PANEL NOT DETECTED
[2022-09-13 21:38] LABS: MUDS CUTOFF CONCENTRATIONS CUTOFF CONC BELOW:
[2022-09-13 21:43] LABS: BILIRUBIN,URINE NEGATIVE (NEGATIVE); GLUCOSE, URINE (UA) >=1000 mg/dL (NEGATIVE); KETONES,URINE (UA) 15 mg/dL (NEGATIVE); LEUKOCYTE ESTERASE, URINE NEGATIVE (NEGATIVE); NITRITE,URINE NEGATIVE (NEGATIVE); OCCULT BLOOD,URINE NEGATIVE (NEGATIVE); PROTEIN,URINE 30 mg/dL (NEGATIVE); UROBILINOGEN,URINE 0.2 (NORMAL) E.U./dL (NORMAL)
[2022-09-13 21:49] LABS: CLARITY,URINE HAZY (CLEAR); HCG UR QUAL NEGATIVE
[2022-09-13] MEDS ORDERED: PROCHLORPERAZINE 10 MG/2 ML VIAL IVP STA (21:49)
[2022-09-13 22:00] LABS: BACTERIA,URINE Rare /HPF (None Seen); SQUAMOUS EPITHELIAL CELL,UR MOD Squamous (<= Few); WBC,URINE 0-3 /HPF (0-5); YEAST,URINE PRESENT
[2022-09-13 22:07] LABS: AMPHETAMINE SCREEN,URINE NEGATIVE (NEGATIVE); BARBITURATE SCREEN,UR NEGATIVE (NEGATIVE); BENZODIAZEPINES SCREEN, URINE POSITIVE (NEGATIVE); COCAINE SCREEN URINE NEGATIVE (NEGATIVE); METHADONE SCREEN, URINE NEGATIVE (NEGATIVE); METHAMPHETAMINES SCREEN, URINE NEGATIVE (NEGATIVE); OPIATE SCREEN, URINE NEGATIVE (NEGATIVE); OXYCODONE SCREEN, URINE NEGATIVE (NEGATIVE); PROPOXYPHENE SCREEN, URINE NEGATIVE (NEGATIVE); THC CANNABINOID SCREEN, URINE NEGATIVE (NEGATIVE); TRICYCLIC ANTIDEPRESSANT,URINE NEGATIVE (NEGATIVE)
[2022-09-13 22:53] VITALS: BP 165/97
[2022-09-13] MEDS ORDERED: FLUCONAZOLE 100 MG TABLET PO STA (22:55)
== END 2022-09-13 23:15 | disposition home or self-care (01) ==
LOC: ED 19:29
DX: B37.31 Acute candidiasis of vulva and vagina (principal); R10.2 Pelvic and perineal pain; R11.2 Nausea with vomiting, unspecified; F17.200 Nicotine dependence, unspecified, uncomplicated; Z20.822 Contact with and (suspected) exposure to COVID-19
CPT/HCPCS: 36415; 80053; 80164; 80306; 80307; 80320; 80329; 81001; 81025; 82550; 83690; 83735; 84443; 84484; 85025; 87633; 93005; 96374; 99284; A9270; 81003; 87086

== ENCOUNTER 2022-12-05 14:45 | Outpatient (CLI) | payer OTHER | END 2022-12-05 14:46 | disposition critical access hospital (66) | LOC: EMS 14:45 | DX: M25.562 Pain in left knee (principal); M25.512 Pain in left shoulder; M25.572 Pain in left ankle and joints of left foot; M54.2 Cervicalgia; W01.0XXA Fall on same level from slipping, tripping and stumbling without subsequent striking against object, initial encounter; Y92.002 Bathroom of unspecified non-institutional (private) residence as the place of occurrence of the external cause | CPT/HCPCS: A0425; A0429 ==

== ENCOUNTER 2022-12-05 14:58 | Emergency (ER) | payer OTHER ==
--- OUTSIDE RECORDS SUMMARY | 2022-12-05 15:12 | EXTERNAL MEDICAL SUMMARY RPT | Continuity of Care Document ---
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 Role Phone Unavailable Unavailable Unavailable Cassy Bruce Unavailable Unavailable Allergies and Intolerances date description facility reaction severity (no date) Mild [facility] (no reaction) (no se verity) (no date) Sulfa (Sulfonamide Antibiotics) [facility] (no reaction) (no severity) (no date) amoxicillin [facility] (no reaction) (no s everity) (no date) azithromycin [facility] (no reaction) (no severity) (no date) cephalexin [facility] (no reaction) (no se verity) (no date) codeine [facility] (no reaction) (no se verity) (no date) levofloxacin [facility] (no reaction) (no severity) Medications date description facility 2022-09-27 00:[address] [facility] 2022-09-27 00:00 Lamotrigine [facility] 2022-09-27 00:00 Rabeprazole [facility] Problems date description facility 2022-09-12 12:29 Pain in right hip [facility] 2022-09-15 11:04 Upper abdominal pain, unspecifi ed [facility] 2022-09-15 11:04 Other abnormality of red blood cells [facility] 2022-09-15 11:11 Upper abdominal pain, unspeci [facility] 2022-09-15 11:11 Other abnormality of red blood cells [facility] 2022-09-27 12:33 Other abnormality of red blood cells [facility] 2022-09-27 12:53 Gastro-esophageal reflux diseas e without esophagitis [facility] 2022-09-27 13:07 Gastro-esophageal reflux diseas e without esophagitis [facility] 2022-09-27 13:17 Gastro-esophageal reflux diseas e without esophagitis [facility] 2022-09-27 13:50 Other abnormality of red blood cells [facility] 2022-09-27 15:37 Gastro-esophageal reflux diseas e without esophagitis [facility] 2022-09-27 16:07 Gastro-esophageal reflux diseas e without esophagitis [facility] 2022-09-27 16:35 Gastro-esophageal reflux diseas e without esophagitis [facility] 2022-09-29 08:13 Upper abdominal pain, [facility] 2022-09-29 08:13 Other abnormality of red blood cells [facility] 2022-10-02 16:36 Upper abdominal pain, [facility] 2022-10-02 16:36 Other abnormality of [facility] blood cells [facility] Procedures date description facility 2022-09-15 00:00 US abdomen complete [facility] 2022-09-27 00:00 Esophagogastroduodenoscopy [facility] Results/Labs test date facility value unit notes Social History date description facility 2022-09-27 00:00 Ex-smoker (finding) [facility] Vital Signs date measurement value units 2022-09-27 00:00 BMI 42.9 kg/m2 2022-09-27 00:00 BP_diastolic 80 mmHg 2022-09-27 00:00 BP_systolic 116 mmHg 2022-09-27 00:00 heart_rate 102 /min 2022-09-27 00:00 height_metric 162.56 cm 2022-09-27 00:00 height_standard 64 in 2022-09-27 00:00 o2_saturation 94 % 2022-09-27 00:00 respiration_rate 14 /min 2022-09-27 00:00 temperature_metric 36.56 C 2022-09-27 00:00 temperature_standard 97.8 F 2022-09-27 00:00 weight_metric 113.39 kg 2022-09-27 00:00 weight_standard 249.98 lb
[2022-12-05] MEDS ORDERED: HYDROmorphone 1 MG/ML CARPUJECT IM STA (15:18)
--- NOTE | 2022-12-05 15:21 | ED Physician Documentation ---
History of Present Illness - Stated complaint Stated Complaint: GLF - Chief complaint Chief Complaint: General - Additonal information Additional information: 42-year-old female presents the emergency department via EMS for evaluation of headache, left mastoid pain, left shoulder pain, left ankle pain and left hip pain after tripping when getting into the shower. She did strike her head but there was no loss of consciousness. Not anticoagulated. Presentation to the emergency department the patient has removed her cervical collar refusing to wear it. She is shielding her eyes from the light. Reports that her head Behind her left ear. States she is having difficulty moving her left shoulder and left leg due to hip pain. Denies any previous history of hip or extremity fracture. Review of Systems Constitutional: denies: Fever Eyes: reports: Reviewed and negative Ears: reports: Other (Left mastoid tenderness) Nose: reports: Reviewed and negative Cardiac: reports: Reviewed and negative Respiratory: reports: Reviewed and negative GI: reports: Reviewed and negative Skin: denies: Rash, Lesions Musculoskeletal: reports: Neck pain, Joint pain Neurologic: reports: Headache, Head injury. denies: Generalized weakness, Focal weakness, Numbness, Seizure, Confused, LOC Psychiatric: reports: Reviewed and negative Endocrine: reports: Reviewed and negative PD PAST MEDICAL HISTORY - Past Medical History Cardiovascular: Pulmonary embolism, Other Respiratory: Pneumonia Neuro: CVA, Headaches, Migraines, Fainting Endocrine/Autoimmune: Type 2 diabetes GI: GERD MANAGER POST: None : Chronic bladder infection, Kidney stones, Other HEENT: None Psych: Depression, Anxiety, Bipolar disorder, Panic attacks, ADD/ADHD, Post traumatic stress disorder Musculoskeletal: Fibromyalgia, Chronic back pain Derm: None - Past Surgical History Past Surgical History: Yes Ortho: Spine surgery, Other /MANAGER POST: section, Hysterectomy, Oophrectomy, Other HEENT: Tonsil/Adenoidectomy - Present Medications Home Medications: Ambulatory Orders Medication Instructions Recorded Confirmed lamoTRIgine [LaMICtal] 150 mg PO TID 05/04/20 02/14/22 Cyclobenzaprine [Flexeril] 10 mg PO TID PRN 02/26/21 02/14/22 Estrogens, Conjugated [Premarin] 0.625 mg PO DAILY 02/26/21 02/14/22 Pantoprazole Sodium 40 mg PO BID 02/26/21 02/14/22 Nystatin Cream [Mycostatin Cream] 1 applic TOP BID #30 gm 02/14/22 Promethazine [Phenergan] 25 mg PO Q6H PRN #10 tab 02/14/22 Ketorolac [Toradol] 10 mg PO Q6H #30 tablet 09/08/22 L.acid/L.casei/B.bif/B.lokesh/Fos 1 each PO QDAC #20 cap 09/08/22 [Probiotic Blend Capsule] Fluconazole [Diflucan] 150 mg PO ONCE PRN #2 tablet 10/11/22 Prochlorperazine Supp [Compazine 25 mg WI BID PRN #8 supp 10/12/22 Supp] - Allergies Allergies/Adverse Reactions: Allergies Allergy/AdvReac Type Severity Reaction Status Date / Time sulfamethoxazole Allergy Severe Hives Verified 12/05/22 15:16 [From Bactrim] trimethoprim [From Bactrim] Allergy Severe Hives Verified 12/05/22 15:16 azithromycin [From Zithromax] Allergy Anaphylaxis Verified 12/05/22 15:16 cariprazine [From Vraylar] Allergy Unknown Verified 12/05/22 15:16 ciprofloxacin Allergy Anaphylaxis Verified 12/05/22 15:16 dextromethorphan Allergy Hallucinati Verified 12/05/22 15:16 [From Nuedexta] ons quinidine [From Nuedexta] Allergy Hallucinati Verified 12/05/22 15:16 ons lorazepam AdvReac Headache Verified 12/05/22 15:16 - Social History Does the pt smoke?: No Smoking Status: Never smoker Does the pt drink ETOH?: Yes Does the pt have substance abuse?: No - Immunizations Immunizations are current?: Yes - POLST Patient has POLST: No POLST Status: Full Code PD ED PE NORMAL - General General: Alert and oriented X 3, Well developed/nourished (obese). No: No acute distress - HEENT HEENT: Other (Negative for raccoon eyes, hemotympanum or schwarz sign. Significant tenderness elicited with minimal palpation over the left mastoid bones. No crepitus or ecchymosis noted) - Neck Neck: Supple, no meningeal sign - Cardiac Cardiac: RRR, No murmur - Respiratory Respiratory: No respiratory distress, Clear bilaterally - Abdomen Abdomen: Normal bowel sounds, Soft, Non tender - Back Back: No CVA TTP - Derm Derm: Normal color, Warm and dry, No rash - Extremities Extremities: No deformity (Pain with elevation and extension of the left shoulder without obvious deformity. Neurovascularly intact. Pain radiates from behind the posterior shoulder to the neck), Other (Tenderness with palpation of the left lateral hip. No obvious ecchymosis malrotation leg shortening or deformity. Increased pain with external rotation though minimal with internal.). No: Normal ROM s pain (Tenderness with palpation of the bilateral left ankle malleoli are region without swelling or ecchymosis or obvious deformity. 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 Eye Opening: Spontaneous Motor: Obeys Commands Verbal: Oriented GCS Score: 15 Results - Vitals Vitals: Vital Signs - 24 hr 12/05/22 12/05/22 12/05/22 15:08 15:10 15:41 Temperature 36.0 C L Heart Rate 104 H Respiratory 18 19 18 Rate Blood Pressure 176/117 H O2 Saturation 97 12/05/22 12/05/22 12/05/22 16:48 18:32 18:51 Temperature Heart Rate 104 H Respiratory 18 18 17 Rate Blood Pressure O2 Saturation 94 99 12/05/22 19:26 Temperature Heart Rate 96 Respiratory 18 Rate Blood Pressure 197/155 H O2 Saturation 97 Oxygen O2 Source Room air - Labs Labs: Laboratory Tests 12/05/22 15:26 Serum HCG, Qual NEGATIVE - Rads (name of study) left shoulder xr Relevant Findings:: Final report received (No fracture. No osseous lesion.) cxr Relevant Findings:: Final report received (No acute cardiopulmonary process) left ankle xr Relevant Findings:: Final report received cervical CT Relevant Findings:: Final report received (no fx of dislocations) pelvic CT Relevant Findings:: Final report received (No evidence of fracture or dislocation.) CT head Relevant Findings:: Final report received (Unremarkable CT of the brain) max fac ct Relevant Findings:: Final report received (Unremarkable maxillofacial CT without contrast. No fracture or foreign body. Debris within the left external auditory canal) PD Medical Decision Making - ED course Complexity details: reviewed results, re-evaluated patient, considered differential, d/w patient ED course: 42-year-old female presents emergency department for evaluation of headache head injury left mastoid pain as well as left shoulder hip and ankle pain after she tripped getting into a shower striking the left side of her head on the shower. There was no loss of consciousness no anticoagulation. Reports she had difficulty getting up on scene and EMS was summoned. She arrived here in a hard rigid collar but she removed the collar. On presentation the patient was difficult to engage. She preferred to keep her eyes shut and a pillow over her head. She stated that everything hurt especially the left hip and behind her left ear. However about 2 hours after presentation pt c/o increasing headache and left sided weakness. States That this feels similar to "previous migraines/strokes." Patient was having difficulty with word finding but did not have any obvious facial droop or arm or leg weakness. Pt was hospitalized at [facility] December 22, 2021 through January 12, 2022 at [facility] showed that the patient was likely having complex migraine versus a conversion disorder. MRI of the brain did not show any acute strokes. Imaging here at [facility] in July 2022 showed no remarkable or concerning diagnostic findings including stenosis with angiogram of the head and neck. Given the worsening headache after trauma with some associated speech deficits that sound similar to many previous presentations I suspected the patient was having a complex migraine and as such administered her liter of IV fluids, Compazine and Benadryl. On reevaluation her headache was improved as well as her speech patterns. Given very recently negative angiography of the head and neck I did not feel that that was warranted today. However given the fall with new headache mastoid tenderness and left hip pain she did obtain CT imaging of the head neck, pelvic region and cervical spine. As interpreted by the radiologist no acute findings of fracture or dislocation were noted. I did reevaluate patient at the bedside. The headache has mostly resolved as well as the speech and reported left-sided deficits. She is feeling ready for discharge home. I believe the migraine was a complex migraine. Patient is scheduled to see a neurologist in follow-up with a plan to initiate Botox treatment. The usual emergent return precautions for worsening symptoms was discussed. Departure - Departure Disposition: 01 Home, Self Care Clinical Impression: Ground-level fall Contusion of left hip Qualifiers: Encounter type: sequela Qualified Code(s): S70.02XS - Contusion of left hip, sequela Migraine Qualifiers: Migraine type: unspecified Status migrainosus presence: without status migrainosus Intractability: not intractable Qualified Code(s): G43.909 - Migrain e, unspecified, not intractable, without status migrainosus Condition: Stable Record reviewed to determine appropriate education?: Yes Comments: Leatha you had a ground-level fall at home today when getting into the shower. You have also been developing a migraine headache over the last [address] imaging of the bones of your face, head and neck as well as hip did not show any fracture. The x-ray of your chest, shoulder and left ankle were also negative. I suspect that you will have some pain and contusion from the fall but that should get better. In order to manage the migraine today we did give you some IV fluids, Toradol Compazine and Benadryl. This was followed by a dose of Decadron. It is important you continue to follow very closely with your neurologist to initiate the treatment of Botox for your migraines. 15 point you find that your symptoms are worsening, you develop fevers or have a headache pattern that varies from your known migraines and please return to the ER for repeat evaluation. Forms: PCP List
[2022-12-05 15:54] LABS: HCG,QUALITATIVE BLOOD NEGATIVE
--- NOTE | 2022-12-05 15:59 | XRAY Report ---
PROCEDURE: Ankle 3 View LT INDICATIONS: pain after fall TECHNIQUE: 3 views of the ankle were acquired. COMPARISON: None. FINDINGS: Bones: No fractures or dislocations. Ankle mortise is normally aligned. No suspicious bony lesions . Soft tissues: No tibiotalar joint effusion. Achilles tendon appears normal. IMPRESSION: No fracture. No osseous lesion. If symptoms and/or clinical concern for pathology persists, further a ssessment with repeat plain film radiographs (7-10 days) or advanced imaging (CT, MR, bone scan) shou ld be considered. Reviewed by: María Lemus MD, PhD on 12/05/2022 3:58 PM PDT Approved by: María Lemus MD, PhD on 12/05/2022 3:58 PM PDT Station ID: [id number]
--- NOTE | 2022-12-05 16:00 | XRAY Report ---
PROCEDURE: Chest 1 View X-Ray INDICATIONS: chest pain TECHNIQUE: One view of the chest was acquired. COMPARISON: 06/02/2022. FINDINGS: Surgical changes and devices: None. Lungs and pleura: No pleural effusions or pneumothorax. Lungs are clear. Mediastinum: Mediastinal contours appear normal. Heart size is normal. Bones and chest wall: No suspicious bony lesions. Overlying soft tissues appear unremarkable. IMPRESSION: No acute cardiopulmonary disease process. Reviewed by: María Lemus MD, PhD on 12/05/2022 3:59 PM PDT Approved by: María Lemus MD, PhD on 12/05/2022 3:59 PM PDT Station ID: [id number]
--- NOTE | 2022-12-05 16:01 | XRAY Report ---
PROCEDURE: Shoulder 3 View LT INDICATIONS: pain after fall TECHNIQUE: 4 views of the shoulder were acquired. COMPARISON: None. FINDINGS: Bones: No fractures or dislocations. No suspicious bony lesions. Visualized ribs appear intact. Soft tissues: No suspicious soft tissue calcifications. The visualized lungs are within normal limi ts. IMPRESSION: No fracture. No osseous lesion. If symptoms and/or clinical concern for pathology persists, further a ssessment with repeat plain film radiographs (7-10 days) or advanced imaging (CT, MR, bone scan) shou ld be considered. Reviewed by: María Lemus MD, PhD on 12/05/2022 4:00 PM PDT Approved by: María Lemus MD, PhD on 12/05/2022 4:00 PM PDT Station ID: [id number]
[2022-12-05] MEDS ORDERED: ACETAMINOPHEN 325 MG TABLET PO STA (16:57)
[2022-12-05] MEDS ORDERED: diphenhydrAMINE INJ 50 MG/ML VIAL IVP STA (17:02)
[2022-12-05] MEDS ORDERED: PROCHLORPERAZINE 10 MG/2 ML VIAL IVP STA (17:02)
[2022-12-05] MEDS ORDERED: SODIUM CHLORIDE 0.9% 1,000 ML IV STA (17:03)
[2022-12-05] MEDS ORDERED: KETOROLAC 30 MG/ML VIAL IVP STA (17:08)
--- NOTE | 2022-12-05 18:46 | CT Report ---
PROCEDURE: CT cervical spine without contrast INDICATIONS: pain after fall TECHNIQUE: Helical axial CT of the cervical spine was obtained without contrast and reformatted in m ultiple planes. Radiation dose reduction was achieved utilizing automated exposure control or adjus tment of mA and/or kV according to patient size. COMPARISON: None. FINDINGS: Bones: No fractures or dislocations. Visualized superior ribs are intact. There is reversal of nor mal cervical lordosis Soft tissues: Prevertebral soft tissues are normal in thickness. No paravertebral hematomas. No ap ical pneumothoraces. IMPRESSION: Reversal of normal cervical lordosis may related to muscle spasm or positioning. No fracture or traumatic malalignment Reviewed by: Luis Diallo MD on 12/05/2022 5:45 PM AKDT Approved by: Luis Diallo MD on 12/05/2022 5:45 PM AKDT Station ID: [id number]
--- NOTE | 2022-12-05 18:59 | CT Report ---
PROCEDURE: CT brain without contrast INDICATIONS: glf; TECHNIQUE: Helical axial CT of the brain was obtained without contrast and reformatted in multiple p lanes. Radiation dose reduction was achieved using automated exposure control or adjustment of mA and /or kV according to patient size. COMPARISON: None FINDINGS: CSF spaces: Ventricles are appropriate in size and position. No hydrocephalus. Basal cisterns unre markable. Brain: No midline shift. No intracranial masses or hemorrhage. Jackson-white matter interface is norm al. Skull and face: Calvarium and skull base are unremarkable without suspicious lesion. Sinuses: Visualized sinuses and mastoids are clear. IMPRESSION: Unremarkable CT of the brain Reviewed by: Luis Diallo MD on 12/05/2022 5:58 PM AKIRENA Approved by: Luis Diallo MD on 12/05/2022 5:58 PM AKIRENA Station ID: [id number]
--- NOTE | 2022-12-05 19:04 | CT Report ---
PROCEDURE: CT pelvis without contrast INDICATIONS: 43-year-old female with left hip pain after fall TECHNIQUE: Noncontrast 3 mm axial sections acquired through the bony pelvis, with coronal and sagitt al reformatting. For radiation dose reduction, the following was used: automated exposure control, a djustment of mA and/or kV according to patient size. COMPARISON: None. FINDINGS: Image quality: Excellent. Bones: Normal bone mineralization. Both proximal femurs in the femoral ring intact. No evidence of f racture or traumatic malalignment. No radiopaque foreign body. There is a right-sided sacral plexus neurostimulator lead noted in appropriate position. Soft tissues: There is fair amount of air in the urinary bladder which is otherwise distended. Small periumbilical ventral hernia contains fat without bowel involvement. IMPRESSION: No evidence of fracture or dislocation. Air in the urinary bladder is probably related to recent instrumentation, if any history exists. Reviewed by: Luis Diallo MD on 12/05/2022 6:03 PM JIM Approved by: Luis Diallo MD on 12/05/2022 6:03 PM AKIRENA Station ID: [id number]
--- NOTE | 2022-12-05 19:08 | CT Report ---
PROCEDURE: Maxillofacial CT without contrast INDICATIONS: left mastoid pain TECHNIQUE: Helical axial CT of the facial structures and mandible were obtained without contrast 10 reformatted in multiple planes. Radiation dose reduction was achieved using automated exposure contr ol and adjustment of mA and/or kV according to patient size. COMPARISON: None. FINDINGS: Maxillofacial Bones: The zygomaticomaxillary complex is intact. The pterygoid plates and skull base are unremarkable. No evidence of fracture or lytic lesion. Incidental note is made of cortical irregu larity in the body of the sphenoid bone on the left reflecting arrested pneumatization of the sphenoi d sinus, essentially an anatomic variant Mandible: The mandible is intact without fracture. Unremarkable temporomandibular articulation. Dentition: Unremarkable mandibular and maxillary dentition. Soft tissues: No maxillofacial soft tissue swelling. No radiopaque foreign bodies. Orbits: The osseous orbits, globes and ocular muscles unremarkable. Sinuses and Mastoid: The visualized portion of the paranasal sinuses and mastoids are normal. No air -fluid levels or wall fractures. The nasal vault is unremarkable. IMPRESSION: Unremarkable maxillofacial CT without contrast. No fracture or foreign body. Incidental debris with calcification the left external auditory canal. Correlate with direct visualiz ation Reviewed by: Luis Diallo MD on 12/05/2022 6:07 PM JIM Approved by: Luis Diallo MD on 12/05/2022 6:07 PM JIM Station ID: [id number]
[2022-12-05 19:28] VITALS: O2SAT 97
[2022-12-05] MEDS ORDERED: CHERRY SYRUP 10 ML UDC PO ONE (19:30)
[2022-12-05] MEDS ORDERED: DEXAMETHASONE 10 MG/ML VIAL PO STA (19:30)
[2022-12-05 19:55] VITALS: BP 185/131
== END 2022-12-05 20:00 | disposition home or self-care (01) ==
LOC: EDUNIT# → ED 14:58
DX: G43.909 Migraine, unspecified, not intractable, without status migrainosus (principal); S70.02XA Contusion of left hip, initial encounter; W18.39XA Other fall on same level, initial encounter; Y93.E1 Activity, personal bathing and showering; Y92.002 Bathroom of unspecified non-institutional (private) residence as the place of occurrence of the external cause
CPT/HCPCS: 36415; 70450; 70486; 71045; 72125; 72192; 73030; 73610; 84703; 96372; 96374; 96375; 99283; 99285; A9270; J1170; J1200

== ENCOUNTER 2023-01-11 10:55 | Emergency (ER) | payer OTHER ==
[2023-01-11] MEDS ORDERED: PROCHLORPERAZINE 10 MG/2 ML VIAL IVP STA (12:11)
[2023-01-11] MEDS ORDERED: KETOROLAC 30 MG/ML VIAL IVP STA (12:11)
[2023-01-11] MEDS ORDERED: diphenhydrAMINE INJ 50 MG/ML VIAL IVP STA (12:11)
--- NOTE | 2023-01-11 12:14 | ED Physician Documentation ---
PD HPI HEADACHE - Stated complaint Stated Complaint: HEAD PX - Chief complaint Chief Complaint: Neuro - History obtained from History obtained from: Patient, Family () - History of Present Illness Timing - onset: How many hours ago (10) Timing - onset during: Rest Timing - details: Gradual onset Pain level max: 8 Pain level now: 8 Location: Global Quality: Throbbing, Aching Associated symptoms: No: Fever, Stiff neck, Nausea, Vomiting, Weakness, Numbness, Syncope, Seizure, Eye pain, Vision changes Improved by: Rest Worsened by: Light, Noise Contributing factors: No: Anticoagulated, Possible carbon monoxide, Hypertension - Additional information Additional information: 42 year old female with chronic migraine headaches. States headache started this morning at approx 0100. Has slurred speech and L sided weaknes, typical of her complex migraines. No fevers. No chills. No nausea or vomiting. No falls. No trauma. Took Excedrin Migraine this morning without relief. 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 : Chronic bladder infection, Kidney stones, Other HEENT: None Psych: Depression, Anxiety, Bipolar disorder, Panic attacks, ADD/ADHD, Post traumatic stress disorder Musculoskeletal: Fibromyalgia, Chronic back pain Derm: None - Past Surgical History Past Surgical History: Yes Ortho: Spine surgery, Other /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 AND 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acid/L.casei/B.bif/B.lokesh/Fos 1 each PO QDAC #20 cap 09/08/22 [Probiotic Blend Capsule] Fluconazole [Diflucan] 150 mg PO ONCE PRN #2 tablet 10/11/22 Prochlorperazine Supp [Compazine 25 mg [place] BID PRN #8 supp 10/12/22 Supp] Prochlorperazine Maleate 10 mg PO Q6H PRN #14 tab 01/11/23 [Compazine] - Allergies Allergies/Adverse Reactions: Allergies Allergy/AdvReac Type Severity Reaction Status Date / Time sulfamethoxazole Allergy Severe Hives Verified 12/05/22 15:16 [From Bactrim] trimethoprim [From Bactrim] Allergy Severe Hives Verified 12/05/22 15:16 azithromycin [From Zithromax] Allergy Anaphylaxis Verified 12/05/22 15:16 cariprazine [From Vraylar] Allergy Unknown Verified 12/05/22 15:16 ciprofloxacin Allergy Anaphylaxis Verified 12/05/22 15:16 dextromethorphan Allergy Hallucinati Verified 12/05/22 15:16 [From Nuedexta] ons quinidine [From Nuedexta] Allergy Hallucinati Verified 12/05/22 15:16 ons lorazepam AdvReac Headache Verified 12/05/22 15:16 - Social History Does the pt smoke?: No Smoking Status: Never smoker Does the pt drink ETOH?: Yes Does the pt have substance abuse?: No - Immunizations Immunizations are current?: Yes - POLST Patient has POLST: No POLST Status: Full Code PD ED PE NORMAL - Vitals Vital signs reviewed: Yes - General General: Alert and oriented X 3, No acute distress - HEENT HEENT: Moist mucous membranes - Neck Neck: Supple, no meningeal sign - Cardiac Cardiac: RRR, Strong equal pulses - Respiratory Respiratory: No respiratory distress, Clear bilaterally - Abdomen Abdomen: Soft, Non tender, Non distended - Derm Derm: Warm and dry, No rash - Extremities Extremities: No edema, No calf tenderness / cord - Neuro Neuro: Alert and oriented X 3, Other (Mild slurred speech, mild left-sided weakness.) - Psych Psych: Normal mood, Normal affect Results - Vitals Vitals: Vital Signs - 24 hr 01/11/23 01/11/23 11:00 14:03 Temperature 36.6 C Heart Rate 123 H 104 H Respiratory 18 18 Rate Blood Pressure 155/99 H 137/101 H O2 Saturation 95 97 Oxygen O2 Source Room air PD Medical Decision Making - ED course Complexity details: reviewed results, re-evaluated patient, considered differential, d/w patient, d/w family ED course: Patient with her usual migraine headache. She was given IV Toradol, Compazine and Benadryl. Headache resolved. Neurological symptoms resolved. This is common for her complex migraines. No indication for further work-up or evaluation at this time. No evidence of subarachnoid hemorrhage, stroke, tumor. We will have the patient follow-up with her doctor for further care. Upon repeat evaluation, the patient is fully asymptomatic. Patient counseled regarding signs and symptoms for which I believe and urgent re-evaluation would be necessary. Patient with good understanding of and agreement to plan and is comfortable going home at this time This document was made in part using voice recognition software. While efforts are made to proofread this document, sound alike and grammatical errors may occur. Departure - Departure Disposition: 01 Home, Self Care Clinical Impression: Migraine Qualifiers: Migraine type: unspecified Status migrainosus presence: without status migrainosus Intractability: not intractable Qualified Code(s): G43.909 - Migraine, unspecified, not intractable, without status migrainosus Condition: Good Instructions: ED Headache Migraine Follow-Up: your,doctor in 1 week [Other] Prescriptions: Prochlorperazine Maleate [Compazine] 10 mg PO Q6H PRN #14 tab PRN Reason: Nausea / Vomiting Comments: Your prescription was sent to [facility] in [place]. Please follow-up with your doctor for further care. Please return if you worsen. Forms: PCP List Discharge Date/Time: 01/11/23 14:13
[2023-01-11 14:12] VITALS: BP 137/101; O2SAT 97
== END 2023-01-11 14:13 | disposition home or self-care (01) ==
LOC: ED 10:55
DX: G43.909 Migraine, unspecified, not intractable, without status migrainosus (principal); E11.9 Type 2 diabetes mellitus without complications; Z79.899 Other long term (current) drug therapy
CPT/HCPCS: 36415; 96374; 96375; 99283; J1200

== ENCOUNTER 2023-01-19 14:55 | Emergency (ER) | payer OTHER ==
--- NOTE | 2023-01-19 15:32 | ED Physician Documentation ---
History of Present Illness - Stated complaint Stated Complaint: COUGH/SOA - Chief complaint Chief Complaint: Resp - History obtained from History obtained from: Patient - Additonal information Additional information: Patient is a 42-year-old female presenting for evaluation of 1 week of productive cough of green and yellow sputum. She reports her symptoms started last Sunday with runny nose and stuffy nose along with a cough and body aches. The cough has been getting worse since Sunday. She denies fever. Her significant other has also been ill with similar symptoms but is getting better. She did take a COVID test earlier in the week which was negative. She also reports concerns for urinary tract infection with feeling Urgency and frequency. Review of Systems Constitutional: denies: Fever Nose: reports: Congestion Cardiac: denies: Chest pain / pressure Respiratory: reports: Cough. denies: Dyspnea GI: denies: Abdominal Pain, Vomiting, Diarrhea : reports: Frequency. 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: section, Hysterectomy, Oophrectomy, Other HEENT: Tonsil/Adenoidectomy - Present Medications Home Medications: Ambulatory Orders Medication Instructions Recorded Confirmed lamoTRIgine [LaMICtal] 150 mg PO TID 05/04/20 02/14/22 Cyclobenzaprine [Flexeril] 10 mg PO TID PRN 02/26/21 02/14/22 Estrogens, Conjugated [Premarin] 0.625 mg PO DAILY 02/26/21 02/14/22 Pantoprazole Sodium 40 mg PO BID 02/26/21 02/14/22 Nystatin Cream [Mycostatin Cream] 1 applic TOP BID #30 gm 02/14/22 Promethazine [Phenergan] 25 mg PO Q6H PRN #10 tab 02/14/22 Ketorolac [Toradol] 10 mg PO Q6H #30 tablet 09/08/22 L.acid/L.casei/B.bif/B.lokesh/Fos 1 each PO QDAC #20 cap 09/08/22 [Probiotic Blend Capsule] Fluconazole [Diflucan] 150 mg PO ONCE PRN #2 tablet 10/11/22 Prochlorperazine Supp [Compazine 25 mg [place] BID PRN #8 supp 10/12/22 Supp] Prochlorperazine Maleate 10 mg PO Q6H PRN #14 tab 01/11/23 [Compazine] Benzonatate [Tessalon] 200 mg PO QID PRN #20 cap 01/19/23 Cefdinir 300 mg PO BID #20 cap 01/19/23 Fluconazole [Diflucan] 1 tablet PO ONCE 1 Days #1 tablet 01/19/23 Prochlorperazine [Compazine] 10 mg PO Q6H PRN #12 tablet 01/19/23 - Allergies Allergies/Adverse Reactions: Allergies Allergy/AdvReac Type Severity Reaction Status Date / Time sulfamethoxazole Allergy Severe Hives Verified 12/05/22 15:16 [From Bactrim] trimethoprim [From Bactrim] Allergy Severe Hives Verified 12/05/22 15:16 azithromycin [From Zithromax] Allergy Anaphylaxis Verified 12/05/22 15:16 cariprazine [From Vraylar] Allergy Unknown Verified 12/05/22 15:16 ciprofloxacin Allergy Anaphylaxis Verified 12/05/22 15:16 dextromethorphan Allergy Hallucinati Verified 12/05/22 15:16 [From Nuedexta] ons quinidine [From Nuedexta] Allergy Hallucinati Verified 12/05/22 15:16 ons lorazepam AdvReac Headache Verified 12/05/22 15:16 - Social History Does the pt smoke?: No Smoking Status: Never smoker Does the pt drink ETOH?: Yes Does the pt have substance abuse?: No - Immunizations Immunizations are current?: Yes - POLST Patient has POLST: No POLST Status: Full Code PD ED PE NORMAL - General General: Alert and oriented X 3, No acute distress, Well developed/nourished - HEENT HEENT: Atraumatic, Moist mucous membranes, Pharynx benign - Neck Neck: Supple, no meningeal sign - Cardiac Cardiac: RRR, No murmur - Respiratory Respiratory: No respiratory distress, Other (Mildly diminished at the bases) - Abdomen Abdomen: Normal bowel sounds, Soft, Non tender, Non distended - Derm Derm: Warm and dry - Neuro Neuro: Normal speech Results - Vitals Vitals: Vital Signs - 24 hr 01/19/23 01/19/23 14:57 17:17 Temperature 36.8 C 36.6 C Heart Rate 100 88 Respiratory 20 18 Rate Blood Pressure 178/115 H 140/90 H O2 Saturation 96 98 Oxygen O2 Source Room air - Labs Labs: Laboratory Tests 01/19/23 01/19/23 15:05 16:34 Urine Color YELLOW Urine Clarity CLEAR Urine pH 6.0 Ur Specific [place] 1.010 Urine Protein NEGATIVE Urine Glucose (UA) >=1000 H Urine Ketones NEGATIVE Urine Occult Blood NEGATIVE Urine Nitrite POSITIVE H Urine Bilirubin NEGATIVE Urine Urobilinogen 0.2 (NORMAL) Ur Leukocyte Esterase TRACE H Urine RBC None Seen Urine WBC 11-25 H Ur Squamous Epith Cells FEW Squamous Urine Bacteria Many H Ur Microscopic Review INDICATED Urine Culture Comments INDICATED Nasal Adenovirus (PCR) NOT DETECTED Nasal B. parapertussis DNA (PCR) NOT DETECTED Nasal Coronavir 229E PCR NOT DETECTED Nasal Coronavir HKU1 PCR NOT DETECTED Nasal Coronavir NL63 PCR NOT DETECTED Nasal Coronavir OC43 PCR NOT DETECTED Nasal Enterovir/Rhinovir PCR NOT DETECTED Nasal Influenza B PCR NOT DETECTED Nasal Influenza A PCR NOT DETECTED Nasal Parainfluen 1 PCR NOT DETECTED Nasal Parainfluen 2 PCR NOT DETECTED Nasal Parainfluen 3 PCR NOT DETECTED Nasal Parainfluen 4 PCR NOT DETECTED Nasal RSV (PCR) NOT DETECTED Nasal B.pertussis DNA PCR NOT DETECTED Nasal C.pneumoniae (PCR) NOT DETECTED Feng Human Metapneumo PCR NOT DETECTED Nasal M.pneumoniae (PCR) NOT DETECTED Nasal SARS-CoV-2 (PCR) NOT DETECTED PD Medical Decision Making - ED course Complexity details: reviewed results, re-evaluated patient, d/w patient ED course: Patient is a 42-year-old female presenting for evaluation of 1 week of productive cough along with UTI symptoms for the past few days. She is afebrile with stable vital signs. She has no signs of labored breathing. Chest x-ray which I reviewed shows bibasilar opacities suggestive of possible pneumonia. Urine is also positive for infection. Respiratory swab is negative. Patient to be started on antibiotic treatment for pneumonia and urine infection. She does have multiple allergies. We will opt for a course of cefdinir to cover for both infections. Patient does also report having frequent yeast infections with antibiotics so fluconazole also prescribed. Patient requesting Compazine for nausea as well as Tessalon for cough which have also been prescribed for her. Patient counseled on treatment plan as well as concerning symptoms to return for.Initial blood pressure was elevated but significantly improved on repeat. Departure - Departure Disposition: 01 Home, Self Care Clinical Impression: UTI (urinary tract infection), CAP (community acquired pneumonia) Condition: Stable Instructions: ED Pneumonia Adult, ED UTI Cystitis Female Prescriptions: Cefdinir 300 mg PO BID #20 cap Prochlorperazine [Compazine] 10 mg PO Q6H PRN #12 tablet PRN Reason: Nausea / Vomiting Fluconazole [Diflucan] 1 tablet PO ONCE 1 Days #1 tablet Benzonatate [Tessalon] 200 mg PO QID PRN #20 cap PRN Reason: Cough Comments: Your prescriptions were sent to [facility] in [place]. I am starting on an antibiotic for treatment of both pneumonia and urinary tract infection. There are also prescriptions for nausea, yeast infection as well as cough medication. Return to the ER with any worsening symptoms such as labored breathing. Forms: PCP List Discharge Date/Time: 01/19/23 17:17
--- NOTE | 2023-01-19 15:45 | XRAY Report ---
PROCEDURE: Chest 1 View X-Ray INDICATIONS: cough x 1 week TECHNIQUE: One view of the chest was acquired. COMPARISON: None. FINDINGS: Surgical changes and devices: None. Lungs and pleura: No pleural effusions or pneumothorax. Lung findings are low with bibasilar patchy consolidation. Mediastinum: Mediastinal contours appear normal. Heart size is normal. Bones and chest wall: No suspicious bony lesions. Overlying soft tissues appear unremarkable. IMPRESSION: Lung volumes are low with bibasilar patchy consolidation which may represent atelectasis, aspiration and/or pneumonia, in the appropriate clinical context. Reviewed by: Matilda Castro MD on 01/19/2023 3:44 PM PDT Approved by: Matilda Castro MD on 01/19/2023 3:44 PM PDT Station ID: [id number]
[2023-01-19] MEDS ORDERED: IBUPROFEN 800 MG TABLET PO STA (16:24)
[2023-01-19] MEDS ORDERED: ONDANSETRON ODT 4 MG TABLET TL STA (16:24)
[2023-01-19] MEDS ORDERED: PROCHLORPERAZINE 5 MG TABLET PO STA (16:53)
[2023-01-19 16:54] LABS: BILIRUBIN,URINE NEGATIVE (NEGATIVE); GLUCOSE, URINE (UA) >=1000 mg/dL (NEGATIVE); KETONES,URINE (UA) NEGATIVE (NEGATIVE); LEUKOCYTE ESTERASE, URINE TRACE (NEGATIVE); NITRITE,URINE POSITIVE (NEGATIVE); OCCULT BLOOD,URINE NEGATIVE (NEGATIVE); PROTEIN,URINE NEGATIVE (NEGATIVE); UROBILINOGEN,URINE 0.2 (NORMAL) E.U./dL (NORMAL)
[2023-01-19 16:55] LABS: CLARITY,URINE CLEAR (CLEAR)
[2023-01-19 17:02] LABS: BACTERIA,URINE Many /HPF (None Seen); RBC,URINE None Seen /HPF (0-5); SQUAMOUS EPITHELIAL CELL,UR FEW Squamous (<= Few)
[2023-01-19 17:08] LABS: B. PARAPERTUSSIS- RESP PCR PAN NOT DETECTED; B. PERTUSSIS- RESP PCR PANEL NOT DETECTED; C. PNEUMONIAE- RESP PCR PANEL NOT DETECTED; CORONAVIRUS 229E-RESP PCR NOT DETECTED; CORONAVIRUS HKU1-RESP PCR NOT DETECTED; CORONAVIRUS NL63-RESP PCR NOT DETECTED; CORONAVIRUS OC43-RESP PCR NOT DETECTED; HUMAN METAPNEUMOVIRUS NOT DETECTED; INFLUENZA A- RESP PCR PANEL NOT DETECTED; INFLUENZA B - RESP PCR PANEL NOT DETECTED; M. PNEUMONIAE- RESP PCR PANEL NOT DETECTED; PARAINFLUENZA VIRUS 1 NOT DETECTED; PARAINFLUENZA VIRUS 2 NOT DETECTED; PARAINFLUENZA VIRUS 3 NOT DETECTED; PARAINFLUENZA VIRUS 4 NOT DETECTED; RHINOVIRUS/ENTEROVIRUS NOT DETECTED; RSV- RESP PCR PANEL NOT DETECTED; SARS-CoV-2 -RESP PCR PANEL NOT DETECTED
[2023-01-19 17:19] VITALS: BP 140/90; O2SAT 98
== END 2023-01-19 17:17 | disposition home or self-care (01) ==
LOC: ED 14:55
DX: N39.0 Urinary tract infection, site not specified (principal); J18.9 Pneumonia, unspecified organism; E11.9 Type 2 diabetes mellitus without complications; Z20.822 Contact with and (suspected) exposure to COVID-19
CPT/HCPCS: 71045; 81001; 87077; 87086; 87181; 87633; 99284; A9270; Q0162; 81003

== ENCOUNTER 2023-01-26 13:31 | Emergency (ER) | payer OTHER ==
[2023-01-26 14:15] LABS: BASOPHILS % (AUTO) 0.1 %; EOSINOPHILS # (AUTO) 0.1 10^3/uL (0.0-0.7); EOSINOPHILS % (AUTO) 1.6 %; HCT - HEMATOCRIT 38.6 % (37.0-47.0); HGB - HEMOGLOBIN 12.5 g/dL (12.0-16.0); LYMPHOCYTES # (AUTO) 3.1 10^3/uL (1.5-3.5); LYMPHOCYTES % (AUTO) 43.4 %; MEAN CORPUSCULAR HEMOGLOBIN 25.3 pg (27.0-31.0); MEAN CORPUSCULAR HGB CONC 32.4 g/dL (32.0-36.0); MEAN CORPUSCULAR VOLUME 78.1 fL (81.0-99.0); MEAN PLATELET VOLUME 8.6 fL (7.9-10.8); MONOCYTES # (AUTO) 0.3 10^3/uL (0.0-1.0); MONOCYTES % (AUTO) 4.3 %; NEUTROPHILS # (AUTO) 3.5 10^3/uL (1.5-6.6); NEUTROPHILS % (AUTO) 50.2 %; PLT - PLATELET COUNT 159 10^3/uL (130-450); RED BLOOD COUNT 4.94 10^6/uL (4.20-5.40); RED CELL DISTRIBUTION WIDTH 14.1 % (12.0-15.0); WHITE BLOOD COUNT 7.1 x10^3/uL (4.8-10.8)
[2023-01-26 14:35] LABS: ALBUMIN 4.7 g/dL (3.2-5.5); ALBUMIN/GLOBULIN RATIO 1.4 (1.0-2.2); BILIRUBIN,TOTAL 0.5 mg/dL (0.2-1.0); CALCIUM 9.7 mg/dL (8.5-10.3); CREATININE 0.5 mg/dL (0.6-1.3); POTASSIUM 3.9 mmol/L (3.5-4.5); TOTAL PROTEIN 8.1 g/dL (6.4-8.9)
[2023-01-26 15:15] LABS: BILIRUBIN,URINE NEGATIVE (NEGATIVE); GLUCOSE, URINE (UA) 100 mg/dL (NEGATIVE); KETONES,URINE (UA) NEGATIVE (NEGATIVE); LEUKOCYTE ESTERASE, URINE NEGATIVE (NEGATIVE); NITRITE,URINE NEGATIVE (NEGATIVE); OCCULT BLOOD,URINE NEGATIVE (NEGATIVE); PROTEIN,URINE NEGATIVE (NEGATIVE); UROBILINOGEN,URINE 0.2 (NORMAL) E.U./dL (NORMAL)
[2023-01-26 15:20] LABS: CLARITY,URINE CLEAR (CLEAR)
[2023-01-26] MEDS ORDERED: KETOROLAC 15 MG/ML VIAL IVP STA (15:22)
[2023-01-26] MEDS ORDERED: HYDROmorphone 1 MG/ML CARPUJECT IVP STA ×3 (15:22→19:30)
[2023-01-26] MEDS ORDERED: PROCHLORPERAZINE 10 MG/2 ML VIAL IVP STA ×2 (15:22→19:30)
[2023-01-26] MEDS ORDERED: SODIUM CHLORIDE 0.9% 1,000 ML IV STA (15:23)
--- NOTE | 2023-01-26 15:26 | ED Physician Documentation ---
PD HPI ABD PAIN - Stated complaint Stated Complaint: ABD PX - Chief complaint Chief Complaint: Abd Pain - History obtained from History obtained from: Patient - History of Present Illness Timing - onset: Last night, Yesterday Timing - duration: Days (1) Timing - details: Gradual onset, Still present Quality: Aching, Sharp, Pain Location: RUQ, RLQ Radiation: Lower back, Right flank Improved by: No: Laying still, Position Worsened by: Moving. No: Position Associated symptoms: Fever (subjective), Nausea, Vomiting (few times). No: Diarrhea Similar symptoms before: Has not had sx before Recently seen: Emergency Dept (1 week ago for cough symptoms and on Cefdinir antibiotic.) Review of Systems Constitutional: reports: Fever (subjective). denies: Myalgias, Fatigue Nose: denies: Rhinorrhea / runny nose, Congestion Throat: denies: Sore throat Respiratory: denies: Cough GI: reports: Abdominal Pain, Nausea, Vomiting. 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 : Chronic bladder infection, Kidney stones, Other HEENT: None Psych: Depression, Anxiety, Bipolar disorder, Panic attacks, ADD/ADHD, Post traumatic stress disorder Musculoskeletal: Fibromyalgia, Chronic back pain Derm: None - Past Surgical History Past Surgical History: Yes Ortho: Spine surgery, 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, Hysterectomy, Oophrectomy, Other HEENT: Tonsil/Adenoidectomy - Present Medications Home Medications: Ambulatory Orders Medication Instructions Recorded Confirmed lamoTRIgine [LaMICtal] 200 mg PO BID 05/04/20 01/26/23 Pantoprazole Sodium 40 mg PO BID 02/26/21 01/26/23 Benzonatate [Tessalon] 200 mg PO QID PRN #20 cap 01/19/23 01/26/23 Cefdinir 300 mg PO BID #20 cap 01/19/23 01/26/23 Fluconazole [Diflucan] 1 tablet PO ONCE 1 Days #1 tablet 01/26/23 Fremanezumab-Vfrm [Ajovy 225 mg SQ UD 01/26/23 01/26/23 Autoinjector] Nystatin Cream [Mycostatin Cream] 1 applic TOP BID PRN 01/26/23 01/26/23 Oxycodone HCl/Acetaminophen 1 - 2 each PO Q6H PRN #7 tablet 01/26/23 [Percocet 5-325 mg Tablet] Prochlorperazine Maleate 10 mg PO Q6H PRN #10 tab 01/26/23 [Compazine] acetaZOLAMIDE [Diamox] 250 mg PO DAILY PRN 01/26/23 01/26/23 - Allergies Allergies/Adverse Reactions: Allergies Allergy/AdvReac Type Severity Reaction Status Date / Time sulfamethoxazole Allergy Severe Hives Verified 12/05/22 15:16 [From Bactrim] trimethoprim [From Bactrim] Allergy Severe Hives Verified 12/05/22 15:16 azithromycin [From Zithromax] Allergy Anaphylaxis Verified 12/05/22 15:16 cariprazine [From Vraylar] Allergy Unknown Verified 12/05/22 15:16 ciprofloxacin Allergy Anaphylaxis Verified 12/05/22 15:16 dextromethorphan Allergy Hallucinati Verified 12/05/22 15:16 [From Nuedexta] ons quinidine [From Nuedexta] Allergy Hallucinati Verified 12/05/22 15:16 ons lorazepam AdvReac Headache Verified 12/05/22 15:16 - Social History Does the pt smoke?: No Smoking Status: Never smoker Does the pt drink ETOH?: Yes Does the pt have substance abuse?: No - Immunizations Immunizations are current?: Yes - POLST Patient has POLST: No POLST Status: Full Code PD ED PE NORMAL - Vitals Vital signs reviewed: Yes - General General: Alert and oriented X 3, Well developed/nourished, Other (Appears uncomfortable. She is wanting to sit and stand and pacing some.) - Neck Neck: Supple, no meningeal sign, No adenopathy - Cardiac Cardiac: RRR, No murmur - Respiratory Respiratory: No respiratory distress, Clear bilaterally - Abdomen Abdomen: Normal bowel sounds, Soft, Non distended, Other (Tender in the right mid to lower abdomen in particular. Mildly tender right upper quadrant. There is guarding in the right lower to right mid. Right CVA tenderness noted. No rash or sores. Left abdomen not tender.) - Female Female : Deferred - Rectal Rectal: Deferred - Derm Derm: Normal color, Warm and dry - Extremities Extremities: No edema, No calf tenderness / cord - Neuro Neuro: Alert and oriented X 3, No motor deficit, Normal speech Results - Vitals Vitals: Vital Signs - 24 hr 01/26/23 01/26/23 01/26/23 13:52 13:55 15:55 Temperature 36.7 C 36.7 C Heart Rate 98 98 88 Respiratory 20 20 18 Rate Blood Pressure 175/115 H 175/115 H 140/80 H O2 Saturation 97 97 98 01/26/23 01/26/23 01/26/23 17:00 19:34 20:05 Temperature 36.8 C Heart Rate 95 87 89 Respiratory 16 16 16 Rate Blood Pressure 138/88 H 167/105 H 166/103 H O2 Saturation 95 96 95 Oxygen O2 Source Room air - Labs Labs: Laboratory Tests 01/26/23 01/26/23 01/26/23 14:11 14:11 15:06 WBC 7.1 RBC 4.94 Hgb 12.5 Hct 38.6 MCV 78.1 L MCH 25.3 L MCHC 32.4 RDW 14.1 Plt Count 159 MPV 8.6 Neut # (Auto) 3.5 Lymph # (Auto) 3.1 King # (Auto) 0.3 Eos # (Auto) 0.1 Baso # (Auto) 0.0 Absolute Nucleated RBC 0.00 Nucleated RBC % 0.0 Sodium 138 Potassium 3.9 Chloride 107 Carbon Dioxide 24 Anion Gap 7.0 BUN 11 Creatinine 0.5 L Estimated GFR (MDRD) 136 Glucose 196 H Calcium 9.7 Total Bilirubin 0.5 AST 51 H ALT 35 Alkaline Phosphatase 120 Total Protein 8.1 Albumin 4.7 Globulin 3.4 Albumin/Globulin Ratio 1.4 Lipase 19 Urine Color YELLOW Urine Clarity CLEAR Urine pH 6.0 Ur Specific [place] 1.025 Urine Protein NEGATIVE Urine Glucose (UA) 100 H Urine Ketones NEGATIVE Urine Occult Blood NEGATIVE Urine Nitrite NEGATIVE Urine Bilirubin NEGATIVE Urine Urobilinogen 0.2 (NORMAL) Ur Leukocyte Esterase NEGATIVE Ur Microscopic Review NOT INDICATED Urine Culture Comments NOT INDICATED PD Medical Decision Making - ED course Complexity details: reviewed results, re-evaluated patient, considered differential (Patient onset of right-sided abdominal to flank pain starting last evening. Has a history of some gallbladder spasms in the past. No history of kidney stones.), d/w patient Departure - Departure Disposition: 01 Home, Self Care Clinical Impression: Abdominal pain, Vaginitis Condition: Good Record reviewed to determine appropriate education?: Yes Instructions: ED Abdominal Pain Female Non-Specific Abdominal Pain Prescriptions: Prochlorperazine Maleate [Compazine] 10 mg PO Q6H PRN #10 tab PRN Reason: Nausea / Vomiting Fluconazole [Diflucan] 1 tablet PO ONCE 1 Days #1 tablet Oxycodone HCl/Acetaminophen [Percocet 5-325 mg Tablet] 1 - 2 each PO Q6H PRN #7 tablet PRN Reason: pain Comments: I sent your prescription electronically to the [facility] in [place]. CAT scan and labs were basically unremarkable with normal urinalysis as well. Call your doctor to arrange a follow-up appointment, make the next available appointment. In the interim, return anytime if worse or if new symptoms develop. I am prescribing a short course of narcotic pain medication for you. These are potentially dangerous and addictive medications that should be used carefully. These medications may constipate you. Take an [id number] stool softener (docusate) twice daily with plenty of water while taking these medications. If you go 24 hours without a bowel movement, take [id number] miralax, per package instructions. Do not drink or drive while taking these medications. If you received narcotic or sedating medications while in the emergency department, do not drive for 24 hours. Store this medication in a safe, secure place and out of reach of children. It is a violation of federal law to give or sell this medication to another person or to use in a manner other than prescribed. The ED will not refill narcotic prescriptions, including prescriptions lost or stolen. To dispose of unwanted medications: 1. [facility] provides a drop box for medication in pill form only (no liquids) 8:00 am to 4:30 p.m. Sunday-Sunday in the lobby of the [facility], [address] [place] [address]. Empty pills into ziplock bag before disposal. Call [phone] for information. 2.[employer] is a free service available to all [facility] residents. Go to [email or web address] Note that many narcotic pain relievers also contain Tylenol/acetaminophen. Please ensure that your total dose of acetaminophen from all sources does not exceed 3 g (3000 mg) per day. Forms: PCP List Discharge Date/Time: 01/26/23 20:05
[2023-01-26] MEDS ORDERED: diphenhydrAMINE INJ 50 MG/ML VIAL IVP STA (16:30)
[2023-01-26] MEDS ORDERED: iohexoL-300 100 ML VIAL IVP ONE (19:07)
--- NOTE | 2023-01-26 19:20 | CT Report ---
PROCEDURE: ABDOMEN/PELVIS W INDICATIONS: right abd pain since yest CONTRAST: 100ml omni 300 TECHNIQUE: After the administration of intravenous contrast, 5 mm thick sections acquired from the diaphragms to the symphysis. 5 mm thick coronal and sagittal reformats were acquired. For radiation dose reducti on, the following was used: automated exposure control, adjustment of mA and/or kV according to rj ent size. COMPARISON: 09/08/2022 FINDINGS: Image quality: Excellent. Lung bases and heart: Unremarkable. Liver: Hepatomegaly and moderate hepatic steatosis. This is similar compared to the prior study. Gallbladder and biliary tree: Normal gallbladder wall thickness. Nondilated biliary tree. Spleen: Splenomegaly, 17 cm in length, relatively stable. Pancreas: No pancreatic ductal dilation. Adrenals: No adrenal nodule. Kidneys and ureters: No hydronephrosis. No renal cystic lesion which requires follow up. No solid mas s. Bowel and peritoneum: Stomach and small bowel are normal. Normal appendix. Diverticula in the colon w ithout acute diverticulitis. Lymph nodes: Mildly prominent periceliac lymph nodes. No other central or retroperitoneal adenopathy. Vessels: No infrarenal aortic aneurysm. PELVIS Reproductive organs: Absent uterus. Ovaries are not seen. Bladder: No abnormal wall thickening, accounting for underdistension. Pelvic lymph nodes: No pelvic adenopathy by size criteria. Bones: No aggressive osseous abnormality. Other: Sacral nerve stimulator lead present. IMPRESSION: 1. Stable hepatosplenomegaly. 2. Moderate hepatic steatosis. Consider steatohepatitis. 3. Colonic diverticulosis without acute diverticulitis. 4. Normal appendix. Reviewed by: Pat Sierra MD on 01/26/2023 7:19 PM PDT Approved by: Pat Sierra MD on 01/26/2023 7:19 PM PDT Station ID: [id number]
[2023-01-26] MEDS ORDERED: FLUCONAZOLE 100 MG TABLET PO STA (19:30)
--- NOTE | 2023-01-26 19:31 | ED Physician Documentation ---
ED Addendum - Addendum Addendum: 01/26/23 19:[address] Johnson at 6 PM shift change. Briefly this is a 42-year-old woman who was complaining of right-sided abdominal pain of 2 days duration. On my examination now she is feeling much better after the meds that Dr. Johnson has given her. CT was done and negative. Her main complaint now actually was vulvar burning and she thinks it is a yeast infection and would like to be treated with Diflucan for that. Otherwise labs, CT and other diagnostics were unremarkable. She is nontender on my examination at this time. Disposition: Discharged home Condition: Stable Diagnosis: 1. Abdominal pain 2. Vaginal burning
[2023-01-26 20:10] VITALS: BP 166/103; O2SAT 95
== END 2023-01-26 20:05 | disposition home or self-care (01) ==
LOC: ED 13:31
DX: N76.0 Acute vaginitis (principal); R10.11 Right upper quadrant pain; R10.31 Right lower quadrant pain; E11.9 Type 2 diabetes mellitus without complications; Z79.899 Other long term (current) drug therapy
CPT/HCPCS: 36415; 74177; 80053; 81003; 83690; 85025; 96374; 96375; 96376; 99284; 99285; A9270; J1170; J1200; Q9967; 81001; 87086

== ENCOUNTER 2023-01-29 09:46 | Outpatient (CLI) | payer OTHER | END 2023-01-29 09:47 | disposition home or self-care (01) | LOC: LAB 09:46 | PROVIDERS: ATTEND Psychiatry & Neurology Psychiatry | DX: F43.12 Post-traumatic stress disorder, chronic (principal); F39 Unspecified mood [affective] disorder; F51.01 Primary insomnia | CPT/HCPCS: 36415; 80175 ==

== ENCOUNTER 2023-02-09 23:20 | Emergency (ER) | payer OTHER ==
--- NOTE | 2023-02-09 23:24 | ED Physician Documentation ---
PD HPI MHE - Stated complaint Stated Complaint: VENKATA - History obtained from History obtained from: Police - Additional information Additional information: 42-year-old female history of migraines presents as an VENKATA for mental health evaluation. She called 911 stating that she did not want to live anymore and wanted to . She apparently was attempting to run into traffic, but her restrained her. On arrival the patient is screaming, crying, flailing, and stating she wants to . Having to be restrained by law enforcement and not redirectable despite multiple verbal attempts. 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 MANUFACTURING TECHNICIAN: section, Hysterectomy, Oophrectomy, Other HEENT: Tonsil/Adenoidectomy - Present Medications Home Medications: Ambulatory Orders Medication Instructions Recorded Confirmed lamoTRIgine [LaMICtal] 200 mg PO BID 05/04/20 01/26/23 Pantoprazole Sodium 40 mg PO BID 02/26/21 01/26/23 Benzonatate [Tessalon] 200 mg PO QID PRN #20 cap 01/19/23 01/26/23 Cefdinir 300 mg PO BID #20 cap 01/19/23 01/26/23 Fluconazole [Diflucan] 1 tablet PO ONCE 1 Days #1 tablet 01/26/23 Fremanezumab-Vfrm [Ajovy 225 mg SQ UD 01/26/23 01/26/23 Autoinjector] Nystatin Cream [Mycostatin Cream] 1 applic TOP BID PRN 01/26/23 01/26/23 Oxycodone HCl/Acetaminophen 1 - 2 each PO Q6H PRN #7 tablet 01/26/23 [Percocet 5-325 mg Tablet] Prochlorperazine Maleate 10 mg PO Q6H PRN #10 tab 01/26/23 [Compazine] acetaZOLAMIDE [Diamox] 250 mg PO DAILY PRN 01/26/23 01/26/23 - Allergies Allergies/Adverse Reactions: Allergies Allergy/AdvReac Type Severity Reaction Status Date / Time sulfamethoxazole Allergy Severe Hives Verified 12/05/22 15:16 [From Bactrim] trimethoprim [From Bactrim] Allergy Severe Hives Verified 12/05/22 15:16 azithromycin [From Zithromax] Allergy Anaphylaxis Verified 12/05/22 15:16 cariprazine [From Vraylar] Allergy Unknown Verified 12/05/22 15:16 ciprofloxacin Allergy Anaphylaxis Verified 12/05/22 15:16 dextromethorphan Allergy Hallucinati Verified 12/05/22 15:16 [From Nuedexta] ons quinidine [From Nuedexta] Allergy Hallucinati Verified 12/05/22 15:16 ons lorazepam AdvReac Headache Verified 12/05/22 15:16 - Social History Does the pt smoke?: No Smoking Status: Never smoker Does the pt drink ETOH?: Yes Does the pt have substance abuse?: No - Immunizations Immunizations are current?: Yes - POLST Patient has POLST: No POLST Status: Full Code PD ED PE NORMAL - Vitals Vital signs reviewed: Yes - General General: Other (appears older than stated age, crying, yelling) - HEENT HEENT: Atraumatic - Neck Neck: Supple, no meningeal sign - Cardiac Cardiac: No murmur, Strong equal pulses, Other (tachycardia) - Respiratory Respiratory: No respiratory distress, Clear bilaterally - Abdomen Abdomen: Soft, Non tender, Non distended - Derm Derm: Normal color, Warm and dry, No rash - Extremities Extremities: No deformity, No tenderness to palpate, Normal ROM s pain - Neuro 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 intact, Normal speech - Psych Psych: Other (suicidal, tearful, uncooperative) Results - Vitals Vitals: Vital Signs - 24 hr 02/09/23 02/09/23 02/09/23 23:33 23:34 23:40 Temperature 36.4 C L Heart Rate 133 H 120 H 77 Respiratory 26 H 25 H 20 Rate Blood Pressure 214/106 H 165/105 H 152/114 H O2 Saturation 96 96 97 02/09/23 02/10/23 02/10/23 23:49 00:10 00:19 Temperature Heart Rate 107 H 74 105 H Respiratory 17 20 19 Rate Blood Pressure 137/89 H 140/72 H 127/90 H O2 Saturation 96 100 93 02/10/23 02/10/23 02/10/23 00:40 01:10 01:30 Temperature Heart Rate 74 76 100 Respiratory 18 18 18 Rate Blood Pressure 145/84 H 150/68 H 144/109 H O2 Saturation 97 100 96 02/10/23 02/10/23 02/10/23 02:30 03:00 03:30 Temperature Heart Rate 100 100 101 H Respiratory 18 16 16 Rate Blood Pressure 115/76 133/85 H 126/80 O2 Saturation 94 95 95 Oxygen O2 Source Room air - Labs Labs: Laboratory Tests 02/10/23 02/10/23 02/10/23 00:40 00:40 00:45 WBC 4.3 L RBC 4.35 Hgb 11.2 L Hct 35.2 L MCV 80.9 L MCH 25.7 L MCHC 31.8 L RDW 14.6 Plt Count 132 MPV 9.3 Neut # (Auto) 2.2 Lymph # (Auto) 1.7 Amite # (Auto) 0.3 Eos # (Auto) 0.1 Baso # (Auto) 0.0 Absolute Nucleated RBC 0.00 Nucleated RBC % 0.0 Sodium 140 Potassium 3.3 L Chloride 105 Carbon Dioxide 25 Anion Gap 10.0 BUN 8 Creatinine 0.4 L Estimated GFR (MDRD) 176 Glucose 245 H Calcium 9.1 Total Bilirubin 0.4 AST 68 H ALT 60 Alkaline Phosphatase 107 Total Protein 6.9 Albumin 4.3 Globulin 2.6 Albumin/Globulin Ratio 1.7 Urine Color Urine Clarity Urine pH Ur Specific Roma Urine Protein Urine Glucose (UA) Urine Ketones Urine Occult Blood Urine Nitrite Urine Bilirubin Urine Urobilinogen Ur Leukocyte Esterase Urine RBC Urine WBC Ur Squamous Epith Cells Urine Bacteria Urine Yeast Ur Microscopic Review Urine Culture Comments Urine HCG, Qual NEGATIVE Salicylates < 1.5 Urine Opiates Screen NEGATIVE Ur Oxycodone Screen NEGATIVE Urine Methadone Screen NEGATIVE Ur Propoxyphene Screen NEGATIVE Acetaminophen 1.6 Ur Barbiturates Screen NEGATIVE Ur Tricyclics Screen NEGATIVE Ur Phencyclidine Scrn NEGATIVE Ur Amphetamine Screen POSITIVE H U Methamphetamines Scrn NEGATIVE U Benzodiazepines Scrn POSITIVE H Urine Cocaine Screen NEGATIVE U Cannabinoids Screen NEGATIVE Ethyl Alcohol < 10.0 SARS-CoV-2 (PCR) 02/10/23 02/10/23 00:45 02:38 WBC RBC Hgb Hct MCV MCH MCHC RDW Plt Count MPV Neut # (Auto) Lymph # (Auto) Amite # (Auto) Eos # (Auto) Baso # (Auto) Absolute Nucleated RBC Nucleated RBC % Sodium Potassium Chloride Carbon Dioxide Anion Gap BUN Creatinine Estimated GFR (MDRD) Glucose Calcium Total Bilirubin AST ALT Alkaline Phosphatase Total Protein Albumin Globulin Albumin/Globulin Ratio Urine Color YELLOW Urine Clarity CLOUDY Urine pH 5.5 Ur Specific Roma 1.025 Urine Protein TRACE Urine Glucose (UA) 500 H Urine Ketones TRACE Urine Occult Blood NEGATIVE Urine Nitrite POSITIVE H Urine Bilirubin NEGATIVE Urine Urobilinogen 0.2 (NORMAL) Ur Leukocyte Esterase TRACE H Urine RBC 0-5 Urine WBC 4-5 Ur Squamous Epith Cells MANY Squamous H Urine Bacteria Moderate H Urine Yeast PRESENT Ur Microscopic Review INDICATED Urine Culture Comments NOT INDICATED Urine HCG, Qual Salicylates Urine Opiates Screen Ur Oxycodone Screen Urine Methadone Screen Ur Propoxyphene Screen Acetaminophen Ur Barbiturates Screen Ur Tricyclics Screen Ur Phencyclidine Scrn Ur Amphetamine Screen U Methamphetamines Scrn U Benzodiazepines Scrn Urine Cocaine Screen U Cannabinoids Screen Ethyl Alcohol SARS-CoV-2 (PCR) NOT DETECTED PD Medical Decision Making - ED course Complexity details: reviewed old records, reviewed results, re-evaluated patient, considered differential, d/w patient, d/w vocational rehab consultant ED course: Suicidal ideation with Agitation. Patient is crying, tearful, not cooperative and not responding to attempts to verbally redirect or de-escalate. For patient and staff safety administration of Haldol, Ativan, Benadryl was done. Patient is now much more calm, she is now cooperative and appropriate with staff. Laboratory work significant for mild hypokalemia, oral repletion ordere d. Urinalysis with nitrates and leukocyte esterase, however contaminated with many squamous cells. Patient denying urinary symptoms currently.Psych evaluated patient, will persue inpatient treatment. Departure - Departure Disposition: 65 Psych Hosp/Unit DC/Xffranco Clinical Impression: Suicidal ideation, Methamphetamine abuse Condition: Stable
--- NOTE | 2023-02-09 23:28 | ED Physician Documentation ---
Restraint [id number] - Immediate Situation Face to Face Evaluation Date: 02/09/23 Face to Face Evaluation Time: 23:27 Restraint Classification: Violent, physical, chemical Restraint Type: Side rails X 4, Chemical - Patient's Reaction & Behaviors Safety: Physically unsafe Verbal: Crying/Tearful, Demanding, Screaming/Yelling, Swearing Harm: Potential harm to self, Potential harm to others, Verbalizes intent to harm Physical: Aggressive behavior, Fighting restraints, Kicking Other: Attempting removal of medically necessary device(s) - Behavioral Condition Attitude: Guarded Behavior: Uncooperative, Belligerent, Agitated Orientation: Person, Place, Time, Situation Mood: Depressed, Angry - Evaluation Current Medical Condition Relating to Need for Restraint: SI with attempt Pertinent History/Illicit Drugs/Medications/Results: reviewed
[2023-02-09] MEDS: LORazepam 2 MG/ML VIAL IM STA (23:34)
[2023-02-09] MEDS: HALOPERIDOL 5 MG/ML VIAL IM STA (23:35)
[2023-02-09] MEDS: diphenhydrAMINE INJ 50 MG/ML VIAL IM STA (23:35)
[2023-02-10 00:48] LABS: BASOPHILS % (AUTO) 0.2 %; EOSINOPHILS # (AUTO) 0.1 10^3/uL (0.0-0.7); HCT - HEMATOCRIT 35.2 % (37.0-47.0); HGB - HEMOGLOBIN 11.2 g/dL (12.0-16.0); LYMPHOCYTES # (AUTO) 1.7 10^3/uL (1.5-3.5); LYMPHOCYTES % (AUTO) 40.2 %; MEAN CORPUSCULAR HEMOGLOBIN 25.7 pg (27.0-31.0); MEAN CORPUSCULAR HGB CONC 31.8 g/dL (32.0-36.0); MEAN CORPUSCULAR VOLUME 80.9 fL (81.0-99.0); MEAN PLATELET VOLUME 9.3 fL (7.9-10.8); MONOCYTES # (AUTO) 0.3 10^3/uL (0.0-1.0); MONOCYTES % (AUTO) 5.8 %; NEUTROPHILS # (AUTO) 2.2 10^3/uL (1.5-6.6); NEUTROPHILS % (AUTO) 50.6 %; PLT - PLATELET COUNT 132 10^3/uL (130-450); RED BLOOD COUNT 4.35 10^6/uL (4.20-5.40); RED CELL DISTRIBUTION WIDTH 14.6 % (12.0-15.0); WHITE BLOOD COUNT 4.3 x10^3/uL (4.8-10.8)
[2023-02-10 00:55] LABS: MUDS CUTOFF CONCENTRATIONS CUTOFF CONC BELOW:
[2023-02-10 01:02] LABS: ACETAMINOPHEN 1.6 ug/mL; ALBUMIN 4.3 g/dL (3.2-5.5); ALBUMIN/GLOBULIN RATIO 1.7 (1.0-2.2); ALKALINE PHOSPHATASE 107 IU/L (42-121); ALT ALANINE AMINOTRANSFERASE 60 IU/L (10-60); AST ASPARTATE AMINOTRANSFERASE 68 IU/L (10-42); BILIRUBIN,TOTAL 0.4 mg/dL (0.2-1.0); BUN - BLOOD UREA NITROGEN 8 mg/dL (6-20); CALCIUM 9.1 mg/dL (8.5-10.3); CARBON DIOXIDE - CO2 25 mmol/L (21-32); CHLORIDE 105 mmol/L (101-111); CREATININE 0.4 mg/dL (0.6-1.3); ETOH - ETHANOL < 10.0 mg/dL; GFR - MDRD 176 (>89); GLUCOSE 245 mg/dL (74-104); POTASSIUM 3.3 mmol/L (3.5-4.5); SODIUM 140 mmol/L (135-145); TOTAL PROTEIN 6.9 g/dL (6.4-8.9)
[2023-02-10 01:04] LABS: SALICYLATE < 1.5 mg/dL
[2023-02-10 01:10] LABS: AMPHETAMINE SCREEN,URINE POSITIVE (NEGATIVE); BARBITURATE SCREEN,UR NEGATIVE (NEGATIVE); BENZODIAZEPINES SCREEN, URINE POSITIVE (NEGATIVE); COCAINE SCREEN URINE NEGATIVE (NEGATIVE); HCG UR QUAL NEGATIVE; METHADONE SCREEN, URINE NEGATIVE (NEGATIVE); METHAMPHETAMINES SCREEN, URINE NEGATIVE (NEGATIVE); OPIATE SCREEN, URINE NEGATIVE (NEGATIVE); OXYCODONE SCREEN, URINE NEGATIVE (NEGATIVE); PROPOXYPHENE SCREEN, URINE NEGATIVE (NEGATIVE); THC CANNABINOID SCREEN, URINE NEGATIVE (NEGATIVE); TRICYCLIC ANTIDEPRESSANT,URINE NEGATIVE (NEGATIVE)
[2023-02-10 02:05] LABS: BILIRUBIN,URINE NEGATIVE (NEGATIVE); GLUCOSE, URINE (UA) 500 mg/dL (NEGATIVE); KETONES,URINE (UA) TRACE mg/dL (NEGATIVE); LEUKOCYTE ESTERASE, URINE TRACE (NEGATIVE); NITRITE,URINE POSITIVE (NEGATIVE); OCCULT BLOOD,URINE NEGATIVE (NEGATIVE); PH,URINE 5.5 PH (5.0-7.5); PROTEIN,URINE TRACE mg/dL (NEGATIVE); UROBILINOGEN,URINE 0.2 (NORMAL) E.U./dL (NORMAL)
[2023-02-10 02:14] LABS: CLARITY,URINE CLOUDY (CLEAR)
[2023-02-10 02:15] LABS: BACTERIA,URINE Moderate /HPF (None Seen); RBC,URINE 0-5 /HPF (0-5); SQUAMOUS EPITHELIAL CELL,UR MANY Squamous (<= Few); YEAST,URINE PRESENT
[2023-02-10] MEDS: POTASSIUM CHLORIDE 20 MEQ TABLET PO STA (02:15)
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
[2023-02-10] MEDS: FLUCONAZOLE 100 MG TABLET PO STA (05:16)
--- NOTE | 2023-02-10 07:38 | CT Report ---
PROCEDURE: HEAD WO INDICATIONS: ELIZONDO/PSYCHOSIS TECHNIQUE: Noncontrast 4.5 mm thick angled axial sections acquired from the foramen magnum to the vertex. For r adiation dose reduction, the following was used: automated exposure control, adjustment of mA and/or kV according to patient size. COMPARISON: CT head 12/05/2022. FINDINGS: Image quality: Excellent. CSF spaces: Basal cisterns are patent. No extra-axial fluid collections. Ventricles are normal in size and shape. Brain: No midline shift. No intracranial masses or hemorrhage. Jackson-white matter interface is norm al. Skull and face: Calvarium and visualized facial bones are intact, without suspicious lesions. Sinuses: Visualized sinuses and mastoids are clear. IMPRESSION: No acute intracranial pathology. Findings are concordant with preliminary interpretation provided by [facility]. Reviewed by: Jose L Anne MD on 02/10/2023 7:36 AM PST Approved by: Jose L Anne MD on 02/10/2023 7:36 AM PST Station ID: [id number]
[2023-02-10 09:22] VITALS: BP 151/97; O2SAT 96
--- NOTE | 2023-02-10 09:41 | ED Physician Documentation ---
ED Addendum - Addendum Addendum: 02/10/23 09:39 The patient is awake and conversant and denies any suicidal ideation at this time. She talked with the DCR/log chain worker who felt the patient was not at risk for further self-harm and felt she was amenable to safety planning. The log chain worker as well as our social worker masters worked a safety plan with the patient and are both comfortable with it. The patient is comfortable heading home. Disposition: Discharged home in stable condition. Diagnoses: Agitated behavior with depression 2. Suicidal ideation 3. Methamphetamine use disorder 4. History of depression
== END 2023-02-10 10:15 | disposition home or self-care (01) ==
LOC: ED 23:20
DX: R45.851 Suicidal ideations (principal); F15.10 Other stimulant abuse, uncomplicated; E11.9 Type 2 diabetes mellitus without complications; F32.A Depression, unspecified; Z11.52 Encounter for screening for COVID-19; Z79.899 Other long term (current) drug therapy
CPT/HCPCS: 36415; 80053; 80306; 80307; 80320; 80329; 81001; 81003; 81025; 84443; 85025; 87086; 87635; 93005; 96372; 99284; 99285

== ENCOUNTER 2023-03-21 09:46 | Outpatient (CLI) | payer OTHER ==
[2023-03-21 10:20] LABS: BASOPHILS % (AUTO) 0.5 %; EOSINOPHILS # (AUTO) 0.1 10^3/uL (0.0-0.7); EOSINOPHILS % (AUTO) 2.2 %; HCT - HEMATOCRIT 37.9 % (37.0-47.0); LYMPHOCYTES # (AUTO) 2.8 10^3/uL (1.5-3.5); MEAN CORPUSCULAR HEMOGLOBIN 25.9 pg (27.0-31.0); MEAN CORPUSCULAR HGB CONC 31.7 g/dL (32.0-36.0); MEAN CORPUSCULAR VOLUME 81.7 fL (81.0-99.0); MEAN PLATELET VOLUME 9.2 fL (7.9-10.8); MONOCYTES # (AUTO) 0.3 10^3/uL (0.0-1.0); MONOCYTES % (AUTO) 5.3 %; NEUTROPHILS % (AUTO) 47.5 %; PLT - PLATELET COUNT 132 10^3/uL (130-450); RED BLOOD COUNT 4.64 10^6/uL (4.20-5.40); RED CELL DISTRIBUTION WIDTH 14.4 % (12.0-15.0); WHITE BLOOD COUNT 6.4 x10^3/uL (4.8-10.8)
[2023-03-21 10:38] LABS: ALBUMIN 4.4 g/dL (3.2-5.5); ALBUMIN/GLOBULIN RATIO 1.4 (1.0-2.2); ALKALINE PHOSPHATASE 99 IU/L (42-121); ALT ALANINE AMINOTRANSFERASE 55 IU/L (10-60); AST ASPARTATE AMINOTRANSFERASE 57 IU/L (10-42); BILIRUBIN,TOTAL 0.4 mg/dL (0.2-1.0); BUN - BLOOD UREA NITROGEN 11 mg/dL (6-20); CALCIUM 10.3 mg/dL (8.5-10.3); CARBON DIOXIDE - CO2 25 mmol/L (21-32); CHLORIDE 103 mmol/L (101-111); CHOL/HDL RATIO 4.5 (<4.4); CHOLESTEROL 175 mg/dL; CREATININE 0.5 mg/dL (0.6-1.3); GFR - MDRD 136 (>89); GLUCOSE 255 mg/dL (74-104); HDL CHOLESTEROL 39 mg/dL; LDL CHOLESTEROL,CALCULATED 75 mg/dL; LDL/HDL RATIO 1.9 (<4.4); POTASSIUM 3.9 mmol/L (3.5-4.5); SODIUM 136 mmol/L (135-145); TOTAL PROTEIN 7.5 g/dL (6.4-8.9); TRIGLYCERIDES 307 mg/dL (48-352); VLDL CHOLESTEROL 61 mg/dL
[2023-03-21 10:49] LABS: THYROID STIMULATING HORMONE 0.92 uIU/mL (0.34-5.60)
[2023-03-21 11:16] LABS: ESTIMATED AVERAGE GLUCOSE 203 mg/dL (70-100); HEMOGLOBIN A1c% 8.7 % (4.27-6.07)
== END 2023-03-21 09:47 | disposition home or self-care (01) ==
LOC: LAB 09:46
PROVIDERS: ATTEND Physician Assistant Medical
DX: Z13.9 Encounter for screening, unspecified (principal)
CPT/HCPCS: 36415; 80053; 80061; 83036; 83721; 84443; 85025

== ENCOUNTER 2023-03-28 08:00 | Outpatient (CLI) | payer OTHER ==
[2023-03-28 16:02] LABS: BILIRUBIN,URINE NEGATIVE (NEGATIVE); GLUCOSE, URINE (UA) >=1000 mg/dL (NEGATIVE); KETONES,URINE (UA) NEGATIVE (NEGATIVE); LEUKOCYTE ESTERASE, URINE TRACE (NEGATIVE); NITRITE,URINE POSITIVE (NEGATIVE); OCCULT BLOOD,URINE NEGATIVE (NEGATIVE); PH,URINE 5.5 PH (5.0-7.5); PROTEIN,URINE NEGATIVE (NEGATIVE); UROBILINOGEN,URINE 0.2 (NORMAL) E.U./dL (NORMAL)
[2023-03-28 16:12] LABS: CLARITY,URINE CLEAR (CLEAR)
[2023-03-28 16:47] LABS: BACTERIA,URINE Moderate /HPF (None Seen); MUCUS,URINE Moderate Strands; RBC,URINE 0-5 /HPF (0-5); SQUAMOUS EPITHELIAL CELL,UR MOD Squamous (<= Few); WBC,URINE >25 /HPF (0-5)
== END 2023-03-28 23:59 | disposition home or self-care (01) ==
LOC: LAB 08:00
PROVIDERS: ATTEND Urology
DX: Z87.440 Personal history of urinary (tract) infections (principal)
CPT/HCPCS: 81001; 87086

== ENCOUNTER 2023-04-01 11:11 | Emergency (ER) | payer OTHER ==
[2023-04-01 11:48] VITALS: BP 145/95; O2SAT 96
--- NOTE | 2023-04-01 13:37 | ED Physician Documentation ---
History of Present Illness - Stated complaint Stated Complaint: C+,SOA,CONGESTION - Chief complaint Chief Complaint: Resp - Additonal information Additional information: Patient 42-year-old female presenting to the emergency department with 1 day history of cough, congestion, rhinorrhea. Reports that she tested positive with a home COVID test yesterday. States that she would like to be tested again in the emergency department today because the COVID test she used was "". When asked whether or not she picked up a nonexpired COVID test at homeShe again reiterated her concern about false negatives and wanting to be sure. She does report some cough and congestion but denies any chronic lung, renal issues or other chronic medical conditions. No known sick contacts. Otherwise denies for fever, chills, chest pain, abdominal pain, nausea, vomiting, diarrhea, constipation. Review of Systems Constitutional: denies: Fever Eyes: denies: Loss of vision Ears: denies: Loss of hearing Nose: reports: Rhinorrhea / runny nose, Congestion Throat: denies: Dental pain / toothache Cardiac: denies: Chest pain / pressure Respiratory: reports: Cough. 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 : Chronic bladder infection, Kidney stones, Other HEENT: None Psych: Depression, Anxiety, Bipolar disorder, Panic attacks, ADD/ADHD, Post traumatic stress disorder Musculoskeletal: Fibromyalgia, Chronic back pain Derm: None - Past Surgical History Past Surgical History: Yes Ortho: Spine surgery, 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: section, Hysterectomy, Oophrectomy, Other HEENT: Tonsil/Adenoidectomy - Present Medications Home Medications: Ambulatory Orders Medication Instructions Recorded Confirmed lamoTRIgine [LaMICtal] 200 mg PO BID 05/04/20 02/10/23 Pantoprazole Sodium 40 mg PO DAILY 02/26/21 02/10/23 Fremanezumab-Vfrm [Ajovy 225 mg SQ UD 01/26/23 02/10/23 Autoinjector] acetaZOLAMIDE [Diamox] 250 mg PO DAILY PRN 01/26/23 02/10/23 Lumateperone Tosylate [Caplyta] 42 mg PO HS 02/10/23 02/10/23 - Allergies Allergies/Adverse Reactions: Allergies Allergy/AdvReac Type Severity Reaction Status Date / Time sulfamethoxazole Allergy Severe Hives Verified 12/05/22 15:16 [From Bactrim] trimethoprim [From Bactrim] Allergy Severe Hives Verified 12/05/22 15:16 azithromycin [From Zithromax] Allergy Anaphylaxis Verified 12/05/22 15:16 cariprazine [From Vraylar] Allergy Unknown Verified 12/05/22 15:16 ciprofloxacin Allergy Anaphylaxis Verified 12/05/22 15:16 dextromethorphan Allergy Hallucinati Verified 12/05/22 15:16 [From Nuedexta] ons quinidine [From Nuedexta] Allergy Hallucinati Verified 12/05/22 15:16 ons lorazepam AdvReac Headache Verified 12/05/22 15:16 - Social History Does the pt smoke?: No Smoking Status: Never smoker Does the pt drink ETOH?: Yes Does the pt have substance abuse?: No - Immunizations Immunizations are current?: Yes - POLST Patient has POLST: No POLST Status: Full Code PD ED PE NORMAL - Vitals Vital signs reviewed: Yes (Patient initially tachycardic however during my evaluation heart rate was n) - General General: Alert and oriented X 3, No acute distress, Well developed/nourished - HEENT HEENT: Atraumatic, PERRL, EOMI, Ears normal, Moist mucous membranes - Neck Neck: Supple, no meningeal sign - Cardiac Cardiac: RRR - Respiratory Respiratory: No respiratory distress - Abdomen Abdomen: Normal bowel sounds - Female Female : Deferred - Rectal Rectal: Deferred Results - Vitals Vitals: Vital Signs - 24 hr 04/01/23 11:41 Temperature 36.6 C Heart Rate 116 H Respiratory 16 Rate Blood Pressure 145/95 H O2 Saturation 96 Oxygen O2 Source Room air PD Medical Decision Making - ED course Complexity details: considered differential, d/w patient ED course: Patient 42-year-old female presenting to the emergency department with chief complaint cough, congestion. This is in the setting of a recent home positive COVID test. She did present to the emergency department requesting screening for the SARS COVID virus stating that she would be more reassured if she had a more definitive test performed. Initially she was noted to be tachycardic per the triage report however on my evaluation her heart rate was approximately 95. She had clear aeration in all lung salgado with no respiratory distress and was maintaining adequate oxygen saturations on room air. I did order for a respiratory viral panel here in the emergency department. Patient elected to leave the emergency department prior to its completion. She was encouraged to follow-up on the patient portal for her results. I also went over current CDC quarantine precautions in the event that her test is positive for the SARS COVID virus. We discussed return precautions and I encouraged follow-up with her primary care doctor. Departure - Departure Disposition: 01 Home, Self Care Clinical Impression: Viral illness Instructions: ED Viral Syndrome Comments: Thank you for allowing us to care for you today [facility]. Your viral swab is pending at this time. You can follow-up online at the hospital website through the patient portal for your results. Please get plenty of rest and drink plenty of fluids. Ngxe-cbf-sifdcir medications such as Motrin, Tylenol, Mucinex can be very helpful in the m anagement of your symptoms. Please follow current CDC guidelines for quarantine and socially distancing if your test is ultimately positive for the SARS COVID virus. Please follow-up with your primary care doctor. If it anytime you develop new or worsening symptoms please not hesitate to return.
[2023-04-01 14:55] LABS: B. PARAPERTUSSIS- RESP PCR PAN NOT DETECTED; B. PERTUSSIS- RESP PCR PANEL NOT DETECTED; C. PNEUMONIAE- RESP PCR PANEL NOT DETECTED; CORONAVIRUS 229E-RESP PCR NOT DETECTED; CORONAVIRUS HKU1-RESP PCR NOT DETECTED; CORONAVIRUS NL63-RESP PCR NOT DETECTED; CORONAVIRUS OC43-RESP PCR NOT DETECTED; HUMAN METAPNEUMOVIRUS NOT DETECTED; INFLUENZA A- RESP PCR PANEL NOT DETECTED; INFLUENZA B - RESP PCR PANEL NOT DETECTED; M. PNEUMONIAE- RESP PCR PANEL NOT DETECTED; PARAINFLUENZA VIRUS 1 NOT DETECTED; PARAINFLUENZA VIRUS 2 NOT DETECTED; PARAINFLUENZA VIRUS 3 NOT DETECTED; PARAINFLUENZA VIRUS 4 NOT DETECTED; RHINOVIRUS/ENTEROVIRUS NOT DETECTED; RSV- RESP PCR PANEL NOT DETECTED
[2023-04-01 14:56] LABS: SARS-CoV-2 -RESP PCR PANEL DETECTED
== END 2023-04-01 14:00 | disposition home or self-care (01) ==
LOC: ED 11:11
DX: B34.9 Viral infection, unspecified (principal); Z11.52 Encounter for screening for COVID-19
CPT/HCPCS: 87633; 99283

== ENCOUNTER 2023-04-13 10:20 | Outpatient (CLI) | payer OTHER ==
[2023-04-13 10:43] LABS: BILIRUBIN,URINE NEGATIVE (NEGATIVE); GLUCOSE, URINE (UA) 100 mg/dL (NEGATIVE); KETONES,URINE (UA) NEGATIVE (NEGATIVE); LEUKOCYTE ESTERASE, URINE SMALL (NEGATIVE); NITRITE,URINE POSITIVE (NEGATIVE); OCCULT BLOOD,URINE NEGATIVE (NEGATIVE); PH,URINE 5.5 PH (5.0-7.5); PROTEIN,URINE NEGATIVE (NEGATIVE); UROBILINOGEN,URINE 0.2 (NORMAL) E.U./dL (NORMAL)
[2023-04-13 10:56] LABS: BACTERIA,URINE Moderate /HPF (None Seen); CLARITY,URINE SL. CLOUDY (CLEAR); RBC,URINE 0-5 /HPF (0-5); SQUAMOUS EPITHELIAL CELL,UR MOD Squamous (<= Few)
== END 2023-04-13 10:21 | disposition home or self-care (01) ==
LOC: LAB 10:20
PROVIDERS: ATTEND Urology
DX: Z87.440 Personal history of urinary (tract) infections (principal)
CPT/HCPCS: 81001; 87077; 87086; 87181

== ENCOUNTER 2023-05-07 19:25 | Outpatient (CLI) | payer OTHER | END 2023-05-07 19:26 | disposition critical access hospital (66) | LOC: EMS 19:25 | DX: R53.1 Weakness (principal); R47.1 Dysarthria and anarthria; G43.909 Migraine, unspecified, not intractable, without status migrainosus | CPT/HCPCS: A0425; A0429 ==

== ENCOUNTER 2023-05-07 19:39 | Emergency (ER) | payer OTHER ==
--- NOTE | 2023-05-07 19:49 | ED Physician Documentation ---
History of Present Illness - Stated complaint Stated Complaint: MIGRAINE, LEFT SIDE WEAKNESS - History obtained from History obtained from: Patient - Additonal information Additional information: 42-year-old woman with relatively frequent emergency department visits and history of hemiplegic migraines developed her usual migraine reportedly around 5 PM tonight. History is limited because she has word finding difficulties and has stuttering speech but I am able to obtain some history with the use of her stuttering speech and nodding and shaking of her head. She has left-sided numbness and weakness. States he has had this before with her migraines. 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, Hysterectomy, Oophrectomy, Other HEENT: Tonsil/Adenoidectomy - Present Medications Home Medications: Ambulatory Orders Medication Instructions Recorded Confirmed lamoTRIgine [LaMICtal] 200 mg PO BID 05/04/20 04/13/23 acetaZOLAMIDE [Diamox] 250 mg PO DAILY PRN 01/26/23 04/13/23 Lumateperone Tosylate [Caplyta] 42 mg PO HS 02/10/23 04/13/23 Alprazolam [Xanax] 2 mg PO DAILY PRN 04/13/23 04/13/23 Amox/Clav 875/125 [Augmentin 1 tablet PO Q12H 04/13/23 04/13/23 875/125 Tab] Cyclobenzaprine [Flexeril] 10 mg PO TID PRN 04/13/23 04/13/23 Rabeprazole Sodium [Aciphex] 20 mg PO DAILY 04/13/23 04/13/23 - Allergies Allergies/Adverse Reactions: Allergies Allergy/AdvReac Type Severity Reaction Status Date / Time sulfamethoxazole Allergy Severe Hives Verified 05/07/23 19:43 [From Bactrim] trimethoprim [From Bactrim] Allergy Severe Hives Verified 05/07/23 19:43 azithromycin [From Zithromax] Allergy Anaphylaxis Verified 05/07/23 19:43 cariprazine [From Vraylar] Allergy Unknown Verified 05/07/23 19:43 ciprofloxacin Allergy Anaphylaxis Verified 05/07/23 19:43 dextromethorphan Allergy Hallucinati Verified 05/07/23 19:43 [From Nuedexta] ons quinidine [From Nuedexta] Allergy Hallucinati Verified 05/07/23 19:43 ons lorazepam AdvReac Headache Verified 05/07/23 19:43 - Social History Does the pt smoke?: No Smoking Status: Never smoker Does the pt drink ETOH?: Yes Does the pt have substance abuse?: No - Immunizations Immunizations are current?: Yes - POLST Patient has POLST: No POLST Status: Full Code PD ED PE NORMAL - Vitals Vital signs reviewed: Yes - General General: Other (Slow stuttering speech with some word finding difficulties) - HEENT HEENT: Other (Dilated pupils with normal extraocular movements) - Neck Neck: Supple, no meningeal sign, No bony TTP - Cardiac Cardiac: RRR, No murmur - Respiratory Respiratory: No respiratory distress, Clear bilaterally - Abdomen Abdomen: Normal bowel sounds, Soft, Non tender - Derm Derm: Normal color, Warm and dry - Neuro Neuro: Other (She has left hemiplegia and cannot feel the left side either but seems to spare the face and tongue.) Eye Opening: Spontaneous Motor: Obeys Commands Verbal: Oriented (Slow stuttering speech but is able to give some history with delay.) GCS Score: 15 Results - Vitals Vitals: Vital Signs - 24 hr 05/07/23 05/07/23 19:44 23:06 Temperature 36.8 C 36.8 C Heart Rate 120 H 92 Respiratory 18 16 Rate Blood Pressure 160/100 H 119/63 O2 Saturation 97 94 Oxygen O2 Source Room air PD Medical Decision Making - ED course ED course: 42 yo famle with recurrent hemiplegic migraine. Given initially compazine, benadryl felicity s relief. Folowed by droperidol IV after which her speech and L weakness resolved. Departure - Departure Disposition: 01 Home, Self Care Clinical Impression: Migraine Condition: Stable Instructions: ED Headache Migraine Comments: You were treated for a migraine which was also causing your weakness and difficulties with speech. Your symptoms have resolved here with treatment of your migraine. I would recommend close follow-up with your neurologist. Return to the emergency department with any Reoccurrence or new concerns. Forms: PCP List Discharge Date/Time: 05/07/23 23:06
[2023-05-07] MEDS: SODIUM CHLORIDE 0.9% 1,000 ML IV STA (19:57)
[2023-05-07] MEDS: diphenhydrAMINE INJ 50 MG/ML VIAL IVP STA (19:57)
[2023-05-07] MEDS: PROCHLORPERAZINE 10 MG/2 ML VIAL IVP STA (19:59)
[2023-05-07] MEDS: KETOROLAC 15 MG/ML VIAL IVP STA (20:02)
[2023-05-07] MEDS: DROPERIDOL 5 MG/2 ML VIAL IVP STA (21:01)
[2023-05-07] MEDS: LORazepam 2 MG/ML VIAL IVP STA (22:15)
--- NOTE | 2023-05-07 22:56 | ED Physician Documentation ---
ED Addendum - Addendum Addendum: Patient received in signout from Dr. Lr at shift change. Patient presenting with symptoms suggestive of a hemiplegic migraine which she has history of. She has already received medications which she is ordered and is feeling better. Patient signed out to me pending reevaluation in approximately 30 to 60 minutes With plan for discharge once back to baseline. 05/07/23 22:54Patient is feeling better. She is able to articulate clearly. She does have a neurologist and states that she is able to make an appointment. She understands the importance of follow-up. She states that she feels back to her usual self and feels comfortable with plan for discharge. Departure - Departure Disposition: 01 Home, Self Care Clinical Impression: Migraine Condition: Stable Instructions: ED Headache Migraine Comments: You were treated for a migraine which was also causing your weakness and difficulties with speech. Your symptoms have resolved here with treatment of your migraine. I would recommend close follow-up with your neurologist. Return to the emergency department with any Reoccurrence or new concerns. Forms: PCP List Discharge Date/Time: 05/07/23 23:06
[2023-05-07 23:14] VITALS: BP 119/63; O2SAT 94
== END 2023-05-07 23:06 | disposition home or self-care (01) ==
LOC: EDUNIT# → ED 19:39
DX: G43.009 Migraine without aura, not intractable, without status migrainosus (principal); I69.954 Hemiplegia and hemiparesis following unspecified cerebrovascular disease affecting left non-dominant side; E11.9 Type 2 diabetes mellitus without complications; Z86.711 Personal history of pulmonary embolism; M79.7 Fibromyalgia; Z87.442 Personal history of urinary calculi; Z79.899 Other long term (current) drug therapy
CPT/HCPCS: 96374; 96375; 99283; 99285; J1200

== ENCOUNTER 2023-05-09 12:54 | Outpatient (CLI) | payer OTHER ==
--- NOTE | 2023-05-09 16:04 | XRAY Report ---
PROCEDURE: Chest 2V INDICATIONS: BRONCHITIS TECHNIQUE: 2 views of the chest were acquired. COMPARISON: Chest x-ray 01/19/2023. FINDINGS: Surgical changes and devices: None. Lungs and pleura: No pleural effusions or pneumothorax. Lungs are clear. Mediastinum: Mediastinal contours appear normal. Heart size is normal. Bones and chest wall: No suspicious bony lesions. Overlying soft tissues appear unremarkable. IMPRESSION: No acute cardiopulmonary process. Reviewed by: Dolly Larsen MD on 05/09/2023 4:02 PM [facility] Approved by: Dolly Larsen MD on 05/09/2023 4:02 PM [facility] Station ID: [id number]
== END 2023-05-09 12:55 | disposition home or self-care (01) ==
LOC: DI 12:54
PROVIDERS: ATTEND Physician Assistant Medical
DX: J20.9 Acute bronchitis, unspecified (principal)

== ENCOUNTER 2023-06-08 11:02 | Outpatient (CLI) | payer OTHER ==
--- NOTE | 2023-06-11 09:58 | Mammography Report ---
BILATERAL DIGITAL SCREENING MAMMOGRAM 3D/2D: 06/08/2023 CLINICAL: Baseline exam. Routine screening. No prior exams were available for comparison. Both breasts are almost entirely fatty (category a/<25% glandular tissue). No significant masses, calcifications, or other findings are seen in either breast. IMPRESSION: NEGATIVE There is no mammographic evidence of malignancy. A 1 year screening mammogram is recommended. Based on the Tyrer Cuzick model (a risk assessment model) the patient's lifetime risk is 3.4% and her 10 year risk is 0.4%. According to the ACR, ACS, and NCCN guidelines, an annual breast MRI exam mika g with mammogram is recommended if the patient's lifetime risk is 20% or greater. This exam was interpreted at Station ID: [id number]. NOTE: For mammograms, a report in lay terms will be sent to the patient. Approximately 15% of breast malignancies will not be visualized mammographically. In the management of a palpable breast mass, a negative mammogram must not discourage biopsy of a clinically suspicious lesion. Electronically Signed By: Iva forman/vincent:06/08/2023 14:35:01 letter sent: No_Letter ACR BI-RADS Category 1: Negative 3341F PARENCHYMAL PATTERN: (F) - The breast(s) demonstrate(s) diffuse fatty replacement. BI-RADS CATEGORY: (1) - 1 RECOMMENDATION: (ANNUAL) - Recommend routine annual screening mammography. [id number] 1 year screening LATERALITY: (B)
== END 2023-06-08 11:03 | disposition home or self-care (01) ==
LOC: DI 11:02
PROVIDERS: ATTEND Physician Assistant Medical
DX: Z12.31 Encounter for screening mammogram for malignant neoplasm of breast (principal)

== ENCOUNTER 2023-07-12 08:51 | Outpatient (CLI) | payer OTHER ==
[2023-07-12 09:10] LABS: BASOPHILS % (AUTO) 0.3 %; EOSINOPHILS # (AUTO) 0.3 10^3/uL (0.0-0.7); EOSINOPHILS % (AUTO) 4.2 %; HCT - HEMATOCRIT 38.6 % (37.0-47.0); HGB - HEMOGLOBIN 12.3 g/dL (12.0-16.0); LYMPHOCYTES % (AUTO) 49.2 %; MEAN CORPUSCULAR HEMOGLOBIN 25.4 pg (27.0-31.0); MEAN CORPUSCULAR HGB CONC 31.9 g/dL (32.0-36.0); MEAN CORPUSCULAR VOLUME 79.6 fL (81.0-99.0); MEAN PLATELET VOLUME 9.1 fL (7.9-10.8); MONOCYTES # (AUTO) 0.3 10^3/uL (0.0-1.0); MONOCYTES % (AUTO) 4.5 %; NEUTROPHILS # (AUTO) 2.5 10^3/uL (1.5-6.6); NEUTROPHILS % (AUTO) 41.6 %; PLT - PLATELET COUNT 129 10^3/uL (130-450); RED BLOOD COUNT 4.85 10^6/uL (4.20-5.40); RED CELL DISTRIBUTION WIDTH 14.9 % (12.0-15.0)
[2023-07-12 09:25] LABS: ALBUMIN 4.1 g/dL (3.2-5.5); ALBUMIN/GLOBULIN RATIO 1.3 (1.0-2.2); BILIRUBIN,TOTAL 0.5 mg/dL (0.2-1.0); CALCIUM 9.7 mg/dL (8.5-10.3); CREATININE 0.6 mg/dL (0.6-1.3); POTASSIUM 3.9 mmol/L (3.5-4.5); TOTAL PROTEIN 7.2 g/dL (6.4-8.9)
[2023-07-12 10:37] LABS: ESTIMATED AVERAGE GLUCOSE 157 mg/dL (70-100); HEMOGLOBIN A1c% 7.1 % (4.27-6.07)
== END 2023-07-12 08:52 | disposition home or self-care (01) ==
LOC: LAB 08:51
PROVIDERS: ATTEND Physician Assistant Medical
DX: E11.65 Type 2 diabetes mellitus with hyperglycemia (principal); R05.9 Cough, unspecified
CPT/HCPCS: 36415; 80053; 81599; 83036; 85025

== ENCOUNTER 2023-07-13 13:31 | Emergency (ER) | payer OTHER ==
--- NOTE | 2023-07-13 14:06 | ED Physician Documentation ---
PD HPI HEADACHE - Stated complaint Stated Complaint: STIFF NECK,V/N - Chief complaint Chief Complaint: Heent - History obtained from History obtained from: Patient - History of Present Illness Timing - onset: How many days ago (5) Timing - onset during: Light activity Timing - duration: Days (5) Timing - details: Gradual onset, Still present, Waxing and waning Worst headache ever?: Worst headache ever? Quality: Throbbing, Aching Associated symptoms: Stiff neck, Nausea, Vomiting, Weakness. No: Fever Improved by: Dark room, Quiet. No: Meds Worsened by: Light, Noise Similar symptoms before: Diagnosis (various complex/simple migraines.) Review of Systems Constitutional: reports: Chills, Myalgias, Fatigue. 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 : Chronic bladder infection, Kidney stones, Other HEENT: None Psych: Depression, Anxiety, Bipolar disorder, Panic attacks, ADD/ADHD, Post traumatic stress disorder Musculoskeletal: Fibromyalgia, Chronic back pain Derm: None - Past Surgical History Past Surgical History: Yes Ortho: Spine surgery, 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: 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, Hysterectomy, Oophrectomy, Other HEENT: Tonsil/Adenoidectomy - Present Medications Home Medications: Ambulatory Orders Medication Instructions Recorded Confirmed lamoTRIgine [LaMICtal] 200 mg PO BID 05/04/20 07/13/23 acetaZOLAMIDE [Diamox] 250 mg PO DAILY PRN 01/26/23 07/13/23 Lumateperone Tosylate [Caplyta] 42 mg PO HS 02/10/23 07/13/23 Alprazolam [Xanax] 2 mg PO DAILY PRN 04/13/23 07/13/23 Cyclobenzaprine [Flexeril] 10 mg PO TID PRN 04/13/23 07/13/23 Rabeprazole Sodium [Aciphex] 20 mg PO DAILY 04/13/23 07/13/23 Dulaglutide [Trulicity] 0.75 mg SQ DAILY 07/13/23 07/13/23 Erenumab-Aooe [Aimovig 70 mg SQ DAILY 07/13/23 07/13/23 Autoinjector] Insulin NPH Human Isophane 0 unit SUBQ DAILY 07/13/23 07/13/23 [Humulin N Kwikpen] Lumateperone Tosylate [Caplyta] 42 mg PO DAILY 07/13/23 07/13/23 Prochlorperazine [Compazine] 5 mg PO Q6H PRN #20 tablet 07/13/23 Rizatriptan Benzoate [Rizatriptan] 5 mg PO Q6H PRN #10 tablet 07/13/23 cephALEXin [Keflex] 500 mg PO Q6H #20 cap 07/13/23 - Allergies Allergies/Adverse Reactions: Allergies Allergy/AdvReac Type Severity Reaction Status Date / Time sulfamethoxazole Allergy Severe Hives Verified 07/13/23 15:18 [From Bactrim] trimethoprim [From Bactrim] Allergy Severe Hives Verified 07/13/23 15:18 azithromycin [From Zithromax] Allergy Anaphylaxis Verified 07/13/23 15:18 cariprazine [From Vraylar] Allergy Unknown Verified 07/13/23 15:18 ciprofloxacin Allergy Anaphylaxis Verified 07/13/23 15:18 dextromethorphan Allergy Hallucinati Verified 07/13/23 15:18 [From Nuedexta] ons quinidine [From Nuedexta] Allergy Hallucinati Verified 07/13/23 15:18 ons empagliflozin AdvReac Unknown Verified 07/13/23 15:18 [From Jardiance] lorazepam AdvReac Headache Verified 07/13/23 15:18 metformin AdvReac Nausea Verified 07/13/23 15:18 - Social History Does the pt smoke?: No Smoking Status: Never smoker Does the pt drink ETOH?: Yes Does the pt have substance abuse?: No - Immunizations Immunizations are current?: Yes - POLST Patient has POLST: No POLST Status: Full Code Results - Vitals Vitals: Vital Signs - 24 hr 07/13/23 07/13/23 07/13/23 13:43 14:05 16:00 Temperature 36.6 C Heart Rate 119 H 115 H 104 H Respiratory 18 15 20 Rate Blood Pressure 178/105 H 148/130 H 142/105 H O2 Saturation 97 97 98 07/13/23 07/13/23 18:00 19:22 Temperature 36.7 C Heart Rate 89 95 Respiratory 20 18 Rate Blood Pressure 171/114 H 146/97 H O2 Saturation 96 95 Oxygen O2 Source Room air - Labs Labs: Laboratory Tests 07/13/23 07/13/23 07/13/23 14:40 14:40 14:40 WBC 6.2 RBC 4.77 Hgb 12.0 Hct 37.4 MCV 78.4 L MCH 25.2 L MCHC 32.1 RDW 14.6 Plt Count 129 L MPV 9.3 Neut # (Auto) 3.1 Lymph # (Auto) 2.5 [facility] # (Auto) 0.3 Eos # (Auto) 0.2 Baso # (Auto) 0.0 Absolute Nucleated RBC 0.00 Nucleated RBC % 0.0 Sodium 138 Potassium 3.8 Chloride 104 Carbon Dioxide 25 Anion Gap 9.0 BUN 11 Creatinine 0.5 L Estimated GFR (MDRD) 136 Glucose 165 H Calcium 9.7 Magnesium 1.6 L Total Bilirubin 0.4 AST 25 ALT 24 Alkaline Phosphatase 72 C-Reactive Protein 0.7 H Total Protein 7.3 Albumin 4.3 Globulin 3.0 Albumin/Globulin Ratio 1.4 Lipase 28 Urine Color Urine Clarity Urine pH Ur Specific [place] Urine Protein Urine Glucose (UA) Urine Ketones Urine Occult Blood Urine Nitrite Urine Bilirubin Urine Urobilinogen Ur Leukocyte Esterase Urine RBC Urine WBC Ur Squamous Epith Cells Urine Bacteria Ur Microscopic Review Urine Culture Comments Nasal Adenovirus (PCR) NOT DETECTED Nasal B. parapertussis DNA (PCR) NOT DETECTED Nasal Coronavir 229E PCR NOT DETECTED Nasal Coronavir HKU1 PCR NOT DETECTED Nasal Coronavir NL63 PCR NOT DETECTED Nasal Coronavir OC43 PCR NOT DETECTED Nasal Enterovir/Rhinovir PCR NOT DETECTED Nasal Influenza B PCR NOT DETECTED Nasal Influenza A PCR NOT DETECTED Nasal Parainfluen 1 PCR NOT DETECTED Nasal Parainfluen 2 PCR NOT DETECTED Nasal Parainfluen 3 PCR NOT DETECTED Nasal Parainfluen 4 PCR NOT DETECTED Nasal RSV (PCR) NOT DETECTED Nasal B.pertussis DNA PCR NOT DETECTED Nasal C.pneumoniae (PCR) NOT DETECTED Feng Human Metapneumo PCR NOT DETECTED Nasal M.pneumoniae (PCR) NOT DETECTED Nasal SARS-CoV-2 (PCR) NOT DETECTED 07/13/23 15:03 WBC RBC Hgb Hct MCV MCH MCHC RDW Plt Count MPV Neut # (Auto) Lymph # (Auto) [facility] # (Auto) Eos # (Auto) Baso # (Auto) Absolute Nucleated RBC Nucleated RBC % Sodium Potassium Chloride Carbon Dioxide Anion Gap BUN Creatinine Estimated GFR (MDRD) Glucose Calcium Magnesium Total Bilirubin AST ALT Alkaline Phosphatase C-Reactive Protein Total Protein Albumin Globulin Albumin/Globulin Ratio Lipase Urine Color YELLOW Urine Clarity CLOUDY Urine pH 6.5 Ur Specific [place] 1.015 Urine Protein NEGATIVE Urine Glucose (UA) NEGATIVE Urine Ketones NEGATIVE Urine Occult Blood NEGATIVE Urine Nitrite POSITIVE H Urine Bilirubin NEGATIVE Urine Urobilinogen 0.2 (NORMAL) Ur Leukocyte Esterase SMALL H Urine RBC 0-5 Urine WBC >25 H Ur Squamous Epith Cells MANY Squamous H Urine Bacteria Many H Ur Microscopic Review INDICATED Urine Culture Comments NOT INDICATED Nasal Adenovirus (PCR) Nasal B. parapertussis DNA (PCR) Nasal Coronavir 229E PCR Nasal Coronavir HKU1 PCR Nasal Coronavir NL63 PCR Nasal Coronavir OC43 PCR Nasal Enterovir/Rhinovir PCR Nasal Influenza B PCR Nasal Influenza A PCR Nasal Parainfluen 1 PCR Nasal Parainfluen 2 PCR Nasal Parainfluen 3 PCR Nasal Parainfluen 4 PCR Nasal RSV (PCR) Nasal B.pertussis DNA PCR Nasal C.pneumoniae (PCR) Feng Human Metapneumo PCR Nasal M.pneumoniae (PCR) Nasal SARS-CoV-2 (PCR) PD Medical Decision Making - ED course Complexity details: reviewed old records, considered differential (Persistent headache for the last 5 or 6 days. She has had some general malaise and last night into this morning a feeling of chills with a temperature 100 at home. Comples migraines often. She states this feels different.), d/w patient ED course: The patient with 5 to 6 days of headache associated with nausea and light sensitivity and some weakness of left arm. She states she will get symptoms like this with migraines in the past but this feels a bit different with more of a pressure feeling. She also has stiffness in the left muscle area of the neck. She feels she had low-grade fever up to 100 last night and this morning but not previous to this. She has had general malaise however. Consideration could be of a viral type illness with now some secondary headache and triggering of migraine. Alternative would be a complex migraine with status migrainosus. She has been using Tylenol and some ibuprofen at home. She gets monthly injections for migraine. She does not have triptans or as needed meds per se. She had tried Reglan without any improvement. She does not have any adenopathy nor real stiffness in the neck. There are some tenderness in the left trapezius area. No obvious trigger point per se. No redness or rash. No other focal deficit. At this point it sounds likely to be a status migraine. Given her description of atypical pressure type feeling and she also states she did slump to the ground without hitting her head but did have a fall, I would opt for CT of the head. I do not feel she needs lumbar puncture. We can check labs otherwise has her fluid intake has been off. We will start an IV and treat for migraine with Toradol, Compazine, and give a dose of steroids for the status component. At this point pending basic lab tests and a CT and response to the IV medicines. In the past she has often needed second dosings for her migraines and such we will see if that is true. Otherwise I can prescribe with the anticipation of being improved with the above, prescribed combination of some steroids for several days along with triptan type medicines and of some more nausea medicine that she is out of. I would avoid opiates since that would increase the chance of rebound. Departure - Departure Disposition: 01 Home, Self Care Clinical Impression: Flu-like symptoms, Status migrainosus, Neck muscle spasm Headache Qualifiers: Headache type: unspecified Headache chronicity pattern: acute headache Intractability: not intractable Qualified Code(s): R51.9 - Headache, unspecified Condition: Good Record reviewed to determine appropriate education?: Yes Instructions: ED Headache Migraine Follow-Up: your,doctor in 1 week [Other] Prescriptions: Prochlorperazine [Compazine] 5 mg PO Q6H PRN #20 tablet PRN Reason: Nausea / Vomiting cephALEXin [Keflex] 500 mg PO Q6H #20 cap Rizatriptan Benzoate [Rizatriptan] 5 mg PO Q6H PRN #10 tablet PRN Reason: Migraine Comments: Your prescriptions were sent to [facility]. Please follow-up with your doctor for further care. Please take all antibiotics until gone. Go home and rest today. Drink plenty of fluids. Return if you worsen. Forms: PCP List Discharge Date/Time: 07/13/23 19:24
[2023-07-13 14:47] LABS: BASOPHILS % (AUTO) 0.3 %; EOSINOPHILS # (AUTO) 0.2 10^3/uL (0.0-0.7); EOSINOPHILS % (AUTO) 3.1 %; HCT - HEMATOCRIT 37.4 % (37.0-47.0); LYMPHOCYTES # (AUTO) 2.5 10^3/uL (1.5-3.5); LYMPHOCYTES % (AUTO) 40.9 %; MEAN CORPUSCULAR HEMOGLOBIN 25.2 pg (27.0-31.0); MEAN CORPUSCULAR HGB CONC 32.1 g/dL (32.0-36.0); MEAN CORPUSCULAR VOLUME 78.4 fL (81.0-99.0); MEAN PLATELET VOLUME 9.3 fL (7.9-10.8); MONOCYTES # (AUTO) 0.3 10^3/uL (0.0-1.0); MONOCYTES % (AUTO) 4.5 %; NEUTROPHILS # (AUTO) 3.1 10^3/uL (1.5-6.6); NEUTROPHILS % (AUTO) 50.9 %; PLT - PLATELET COUNT 129 10^3/uL (130-450); RED BLOOD COUNT 4.77 10^6/uL (4.20-5.40); RED CELL DISTRIBUTION WIDTH 14.6 % (12.0-15.0); WHITE BLOOD COUNT 6.2 x10^3/uL (4.8-10.8)
[2023-07-13 15:04] LABS: ALBUMIN 4.3 g/dL (3.2-5.5); ALBUMIN/GLOBULIN RATIO 1.4 (1.0-2.2); BILIRUBIN,TOTAL 0.4 mg/dL (0.2-1.0); CALCIUM 9.7 mg/dL (8.5-10.3); CREATININE 0.5 mg/dL (0.6-1.3); CRP - C-REACTIVE PROTEIN 0.7 mg/dL (<0.5); MAGNESIUM 1.6 mg/dL (1.7-2.3); POTASSIUM 3.8 mmol/L (3.5-4.5); TOTAL PROTEIN 7.3 g/dL (6.4-8.9)
[2023-07-13] MEDS: SODIUM CHLORIDE 0.9% 1,000 ML IV STA (15:05)
[2023-07-13] MEDS: KETOROLAC 15 MG/ML VIAL IVP STA (15:06)
[2023-07-13] MEDS: PROCHLORPERAZINE 10 MG/2 ML VIAL IVP STA (15:06)
[2023-07-13] MEDS: DEXAMETHASONE 10 MG/ML VIAL IVP STA (15:07)
[2023-07-13 15:11] LABS: BILIRUBIN,URINE NEGATIVE (NEGATIVE); GLUCOSE, URINE (UA) NEGATIVE (NEGATIVE); KETONES,URINE (UA) NEGATIVE (NEGATIVE); LEUKOCYTE ESTERASE, URINE SMALL (NEGATIVE); NITRITE,URINE POSITIVE (NEGATIVE); OCCULT BLOOD,URINE NEGATIVE (NEGATIVE); PH,URINE 6.5 PH (5.0-7.5); PROTEIN,URINE NEGATIVE (NEGATIVE); UROBILINOGEN,URINE 0.2 (NORMAL) E.U./dL (NORMAL)
[2023-07-13 15:12] LABS: CLARITY,URINE CLOUDY (CLEAR)
[2023-07-13 15:21] LABS: BACTERIA,URINE Many /HPF (None Seen); RBC,URINE 0-5 /HPF (0-5); SQUAMOUS EPITHELIAL CELL,UR MANY Squamous (<= Few); WBC,URINE >25 /HPF (0-5)
--- NOTE | 2023-07-13 15:27 | CT Report ---
PROCEDURE: Head WO INDICATIONS: atypical nonmigranous ELIZONDO 5-6 days TECHNIQUE: Noncontrast 4.5 mm thick angled axial sections acquired from the foramen magnum to the vertex. For r adiation dose reduction, the following was used: automated exposure control, adjustment of mA and/or kV according to patient size. COMPARISON: 02/10/2023. FINDINGS: Image quality: Excellent. CSF spaces: Basal cisterns are patent. No extra-axial fluid collections. Ventricles are normal in size and shape. Brain: No midline shift. No intracranial masses or hemorrhage. Jackson-white matter interface is norm al. Skull and face: Calvarium and visualized facial bones are intact, without suspicious lesions. Sinuses: Visualized sinuses and mastoids are clear. IMPRESSION: No acute intracranial pathology. Reviewed by: Jose Ramon MD on 07/13/2023 3:26 PM PDT Approved by: Jose Ramon MD on 07/13/2023 3:26 PM PDT Station ID: [id number]
[2023-07-13 15:48] LABS: B. PARAPERTUSSIS- RESP PCR PAN NOT DETECTED; B. PERTUSSIS- RESP PCR PANEL NOT DETECTED; C. PNEUMONIAE- RESP PCR PANEL NOT DETECTED; CORONAVIRUS 229E-RESP PCR NOT DETECTED; CORONAVIRUS HKU1-RESP PCR NOT DETECTED; CORONAVIRUS NL63-RESP PCR NOT DETECTED; CORONAVIRUS OC43-RESP PCR NOT DETECTED; HUMAN METAPNEUMOVIRUS NOT DETECTED; INFLUENZA A- RESP PCR PANEL NOT DETECTED; INFLUENZA B - RESP PCR PANEL NOT DETECTED; M. PNEUMONIAE- RESP PCR PANEL NOT DETECTED; PARAINFLUENZA VIRUS 1 NOT DETECTED; PARAINFLUENZA VIRUS 2 NOT DETECTED; PARAINFLUENZA VIRUS 3 NOT DETECTED; PARAINFLUENZA VIRUS 4 NOT DETECTED; RHINOVIRUS/ENTEROVIRUS NOT DETECTED; RSV- RESP PCR PANEL NOT DETECTED; SARS-CoV-2 -RESP PCR PANEL NOT DETECTED
[2023-07-13] MEDS: diphenhydrAMINE INJ 50 MG/ML VIAL IVP STA (16:34)
[2023-07-13] MEDS: HYDROmorphone 1 MG/ML CARPUJECT IVP STA (17:17)
[2023-07-13] MEDS: DROPERIDOL 5 MG/2 ML VIAL IVP STA (18:09)
--- NOTE | 2023-07-13 18:30 | ED Physician Documentation ---
ED Addendum - Addendum Addendum: Patient was signed out to me by Dr. Johnson, please see his note for full H&P on this patient. The patient is a migraine headache and a UTI. Headache resolved with Toradol, Benadryl, Compazine, Dilaudid and droperidol. Feels much better. Moving her neck freely. No signs of meningitis. No fever. No evidence of subarachnoid hemorrhage. No acute findings on head CT. Patient also was given Rocephin IV for UTI and we will place on oral antibiotics for home. Patient is well-appearing, nontoxic. Afebrile. Talking and laughing with her in the emergency department. Normal neurological exam. No cranial nerve deficits. Normal gait. Patient counseled regarding signs and symptoms for which I believe and urgent re-evaluation would be necessary. Patient with good understanding of and agreement to plan and is comfortable going home at this time This document was made in part using voice recognition software. While efforts are made to proofread this document, sound alike and grammatical errors may occur. Departure - Departure Disposition: 01 Home, Self Care Clinical Impression: Flu-like symptoms, Status migrainosus, Neck muscle spasm Headache Qualifiers: Headache type: unspecified Headache chronicity pattern: acute headache Intractability: not intractable Qualified Code(s): R51.9 - Headache, unspecified Condition: Good Instructions: ED Headache Migraine Follow-Up: your,doctor in 1 week [Other] Prescriptions: Prochlorperazine [Compazine] 5 mg PO Q6H PRN #20 tablet PRN Reason: Nausea / Vomiting cephALEXin [Keflex] 500 mg PO Q6H #20 cap Rizatriptan Benzoate [Rizatriptan] 5 mg PO Q6H PRN #10 tablet PRN Reason: Migraine Comments: Your prescriptions were sent to [facility]. Please follow-up with your doctor for further care. Please take all antibiotics until gone. Go home and rest today. Drink plenty of fluids. Return if you worsen. Forms: PCP List
[2023-07-13 19:30] VITALS: BP 146/97; O2SAT 95
== END 2023-07-13 19:24 | disposition home or self-care (01) ==
LOC: ED 13:31
DX: R51.9 Headache, unspecified (principal); M62.838 Other muscle spasm; R53.81 Other malaise; R50.9 Fever, unspecified; R11.0 Nausea
CPT/HCPCS: 36415; 70450; 80053; 81001; 83690; 83735; 85025; 86140; 87633; 96374; 96375; 99284; 99285; J1170; J1200; 81003; 87086

== ENCOUNTER 2023-07-14 15:08 | Emergency (ER) | payer OTHER ==
--- NOTE | 2023-07-14 15:27 | ED Physician Documentation ---
PD HPI HEADACHE - Stated complaint Stated Complaint: STIFF NECK/ELIZONDO/N/V - Chief complaint Chief Complaint: Neuro - History obtained from History obtained from: Patient - History of Present Illness Timing - onset: How many days ago Timing - duration: Days Timing - details: Gradual onset, Still present, Waxing and waning Worst headache ever?: Worst headache ever? (has had HAs of this severity but this is much longer than others. Has notable sensititivty to light/noise, sound and has nausea with vomiting.) Location: Left Quality: Throbbing, Aching Associated symptoms: Stiff neck, Nausea, Vomiting, Vision changes (she feels is having visual hallucinations as indistinct images are moving in visual field along with speckles of light.). No: Fever, Weakness, Numbness, Syncope Improved by: Dark room, Quiet. No: Meds Worsened by: Light, Noise Contributing factors: No: Anticoagulated, Hypertension Similar symptoms before: Diagnosis (migraines diagnosis in the past, and has Neurologist at [facility] (Dr. Ruano).) Review of Systems Constitutional: denies: Fever, Chills, Myalgias Eyes: reports: Decreased vision, Photophobia. denies: Loss of vision, Irritation GI: reports: Nausea, Vomiting. denies: Diarrhea, Hematemesis Skin: denies: Rash, Lesions PD PAST MEDICAL HISTORY - Past Medical History Cardiovascular: Pulmonary embolism, Other Respiratory: Pneumonia Neuro: CVA, Headaches, Migraines, Fainting Endocrine/Autoimmune: Type 2 diabetes GI: GERD PARIMUTUEL CLERK: None : Chronic bladder infection, Kidney stones, Other HEENT: None Psych: Depression, Anxiety, Bipolar disorder, Panic attacks, ADD/ADHD, Post traumatic stress disorder Musculoskeletal: Fibromyalgia, Chronic back pain Derm: None - Past Surgical History Past Surgical History: Yes Ortho: Spine surgery, Other /PARIMUTUEL CLERK: section, Hysterectomy, Oophrectomy, Other HEENT: Tonsil/Adenoidectomy - Present Medications Home Medications: Ambulatory Orders Medication Instructions Recorded Confirmed lamoTRIgine [LaMICtal] 200 mg PO BID 05/04/20 07/13/23 acetaZOLAMIDE [Diamox] 250 mg PO DAILY PRN 01/26/23 07/13/23 Lumateperone Tosylate [Caplyta] 42 mg PO HS 02/10/23 07/13/23 Alprazolam [Xanax] 2 mg PO DAILY PRN 04/13/23 07/13/23 Cyclobenzaprine [Flexeril] 10 mg PO TID PRN 04/13/23 07/13/23 Rabeprazole Sodium [Aciphex] 20 mg PO DAILY 04/13/23 07/13/23 Dulaglutide [Trulicity] 0.75 mg SQ DAILY 07/13/23 07/13/23 Erenumab-Aooe [Aimovig 70 mg SQ DAILY 07/13/23 07/13/23 Autoinjector] Insulin NPH Human Isophane 0 unit SUBQ DAILY 07/13/23 07/13/23 [Humulin N Kwikpen] Lumateperone Tosylate [Caplyta] 42 mg PO DAILY 07/13/23 07/13/23 Prochlorperazine [Compazine] 5 mg PO Q6H PRN #20 tablet 07/13/23 Rizatriptan Benzoate [Rizatriptan] 5 mg PO Q6H PRN #10 tablet 07/13/23 cephALEXin [Keflex] 500 mg PO Q6H #20 cap 07/13/23 dexAMETHasone [Decadron] 4 mg PO DAILY #5 tablet 07/14/23 oxyCODONE [Roxicodone] 5 mg PO Q6H PRN #15 tablet 07/14/23 - Allergies Allergies/Adverse Reactions: Allergies Allergy/AdvReac Type Severity Reaction Status Date / Time sulfamethoxazole Allergy Severe Hives Verified 07/14/23 15:18 [From Bactrim] trimethoprim [From Bactrim] Allergy Severe Hives Verified 07/14/23 15:18 azithromycin [From Zithromax] Allergy Anaphylaxis Verified 07/14/23 15:18 cariprazine [From Vraylar] Allergy Unknown Verified 07/14/23 15:18 ciprofloxacin Allergy Anaphylaxis Verified 07/14/23 15:18 dextromethorphan Allergy Hallucinati Verified 07/14/23 15:18 [From Nuedexta] ons quinidine [From Nuedexta] Allergy Hallucinati Verified 07/14/23 15:18 ons empagliflozin AdvReac Unknown Verified 07/14/23 15:18 [From Jardiance] lorazepam AdvReac Headache Verified 07/14/23 15:18 metformin AdvReac Nausea Verified 04/20/24 15:18 - Social History Does the pt smoke?: No Smoking Status: Never smoker Does the pt drink ETOH?: Yes Does the pt have substance abuse?: No - Immunizations Immunizations are current?: Yes - POLST Patient has POLST: No POLST Status: Full Code PD ED PE NORMAL - Vitals Vital signs reviewed: Yes - General General: Alert and oriented X 3, Well developed/nourished, Other (anxious and tearful about the persisteance of the headache longer than prior ones. ) - HEENT HEENT: Pharynx benign - Neck Neck: Supple, no meningeal sign, No adenopathy - Cardiac Cardiac: No murmur. No: RRR (regular but tachycardic. ) - Respiratory Respiratory: No respiratory distress, Clear bilaterally - Abdomen Abdomen: Soft, Non tender - Derm Derm: Normal color, Warm and dry - Neuro Neuro: Alert and oriented X 3, physical science professor 2-12 intact, No motor deficit, No sensory deficit, Normal speech Eye Opening: Spontaneous Motor: Obeys Commands Verbal: Oriented GCS Score: 15 Results - Vitals Vitals: Vital Signs - 24 hr 07/14/23 07/14/23 07/14/23 15:13 15:18 17:18 Temperature 36.4 C L 36.5 C Heart Rate 122 H 122 H 99 Respiratory 22 22 15 Rate Blood Pressure 178/119 H 178/119 H 140/100 H O2 Saturation 96 96 94 Oxygen O2 Source Room air Procedures - General procedure General procedure: local anesth with bupivocaine at lower trapezius muscle area both sides of neck posteriorly in tender areas. PD Medical Decision Making - ED course Complexity details: reviewed old records (Lbs and head CT yesterday reviewed. ), re-evaluated patient (having mild to moderate improvement of headache and nausea with IV fluids, inapsine, dilaudid. Had not had irovement iwth compazine yesterday. Had steroids dose yest that made her feel flushed. So given just PO dose of decadron as way to try to mitigate status migraine. ELIZONDO/symptoms sound migraine. ), considered differential, d/w patient ED course: having migraine type symptoms but not improved with just migraine meds yesterday and got dose of dilaudid as well. ELIZONDO back again overnight last evening. Same syptoms. Still sound very migraine in character and comibination. I am hoping steroids and dose of neck injection with break trend of status migraine. Departure - Departure Disposition: 01 Home, Self Care Clinical Impression: Persistent headaches Condition: Stable Record reviewed to determine appropriate education?: Yes Instructions: ED Cephalgia Unspecified Follow-Up: Brit Calhoun PA [Primary Care Provider] - MIRIAM RUANO MD [Physician No Access] - Prescriptions: dexAMETHasone [Decadron] 4 mg PO DAILY #5 tablet oxyCODONE [Roxicodone] 5 mg PO Q6H PRN #15 tablet PRN Reason: Pain Comments: Continue usual medications. I did write for a backup pain medicine to use in the short-term for your headache while you are helping that a combination of your usual medications plus a adding a oral steroid for a few days would have an improvement. I also did an injection of a long-acting numbing medicine in your neck muscle to see if that helps with some of the stiffness. Follow-up with your neurologist via text on the patient portal to update on the symptoms. You communicating directly with your particular neurologist is typically more effective than me talking to an on-call neurologist who was not familiar with you. See if there is any change in treatments or medications offered by your specialist. Forms: PCP List Discharge Date/Time: 07/14/23 18:45
[2023-07-14] MEDS ORDERED: BUPIVACAINE 0.5%-EPI 1:200000 PF 30 ML VIAL SUBQ ONE (16:03)
[2023-07-14] MEDS: DROPERIDOL 5 MG/2 ML VIAL IVP STA (16:24)
[2023-07-14] MEDS: HYDROmorphone 1 MG/ML CARPUJECT IVP STA ×2 (16:24→17:39)
[2023-07-14] MEDS: KETOROLAC 15 MG/ML VIAL IVP STA (16:25)
[2023-07-14] MEDS: SODIUM CHLORIDE 0.9% 1,000 ML IV STA (16:25)
[2023-07-14] MEDS: BUPIVACAINE 0.5% PF 10 ML VIAL SUBQ ONE (16:25)
[2023-07-14] MEDS: oxyCODONE/ACET 5/325 Prepack 4 PO STA (17:39)
[2023-07-14 18:00] VITALS: BP 140/100; O2SAT 94
[2023-07-14] MEDS: dexAMETHasone 4 MG TABLET PO STA (18:26)
== END 2023-07-14 18:45 | disposition home or self-care (01) ==
LOC: ED 15:08
DX: R51.9 Headache, unspecified (principal); M43.6 Torticollis
CPT/HCPCS: 20552; 96374; 96375; 96376; 99283; 99284; J1170; J8540

== ENCOUNTER 2023-07-17 10:29 | Outpatient (CLI) | payer OTHER | END 2023-07-17 23:59 | disposition critical access hospital (66) | LOC: EMS 10:29 | DX: R46.89 Other symptoms and signs involving appearance and behavior (principal); R20.0 Anesthesia of skin; R00.0 Tachycardia, unspecified; R03.0 Elevated blood-pressure reading, without diagnosis of hypertension | CPT/HCPCS: A0425; A0427 ==

== ENCOUNTER 2023-07-17 10:40 | Emergency (ER) | payer OTHER ==
--- NOTE | 2023-07-17 11:19 | ED Physician Documentation ---
PD HPI ALTERED MENTAL STATUS - Stated complaint Stated Complaint: GLF/ALOC - Chief complaint Chief Complaint: Neuro - History obtained from History obtained from: Family, EMS - Additional information Additional information: 42-year-old woman brought in by ambulance accompanied by her . All of the history is from the as the patient is nonverbal. She has a past medical history of urinary incontinence with bladder pacemaker, GERD, bipolar, chronic back pain, fibromyalgia, PE, stroke. She been seen by my partner as of the last few days for headaches. Nothing in the history or physical was too concerning for systemic disease or worrisome etiology. says she was better this morning and he stepped out to run some errands and she said she was going to go back to bed. He took a call at 937 this morning from a son who found her lodged between the bathroom and closet with possible head injury and unresponsive. Brought in by ambulance with unremarkable blood sugar of chandana roximately 140. 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: None : Chronic bladder infection, Kidney stones, Other HEENT: None Psych: Depression, Anxiety, Bipolar disorder, Panic attacks, ADD/ADHD, Post traumatic stress disorder Musculoskeletal: Fibromyalgia, Chronic back pain Derm: None - Past Surgical History Past Surgical History: Yes Ortho: Spine surgery, Other /BOARDING MOTHER: section, Hysterectomy, Oophrectomy, Other HEENT: Tonsil/Adenoidectomy - Present Medications Home Medications: Ambulatory Orders Medication Instructions Recorded Confirmed lamoTRIgine [LaMICtal] 200 mg PO BID 05/04/20 07/13/23 acetaZOLAMIDE [Diamox] 250 mg PO DAILY PRN 01/26/23 07/13/23 Lumateperone Tosylate [Caplyta] 42 mg PO HS 02/10/23 07/13/23 Alprazolam [Xanax] 2 mg PO DAILY PRN 04/13/23 07/13/23 Cyclobenzaprine [Flexeril] 10 mg PO TID PRN 04/13/23 07/13/23 Rabeprazole Sodium [Aciphex] 20 mg PO DAILY 04/13/23 07/13/23 Dulaglutide [Trulicity] 0.75 mg SQ DAILY 07/13/23 07/13/23 Erenumab-Aooe [Aimovig 70 mg SQ DAILY 07/13/23 07/13/23 Autoinjector] Insulin NPH Human Isophane 0 unit SUBQ DAILY 07/13/23 07/13/23 [Humulin N Kwikpen] Prochlorperazine [Compazine] 5 mg PO Q6H PRN #20 tablet 07/13/23 Rizatriptan Benzoate [Rizatriptan] 5 mg PO Q6H PRN #10 tablet 07/13/23 cephALEXin [Keflex] 500 mg PO Q6H #20 cap 07/13/23 dexAMETHasone [Decadron] 4 mg PO DAILY #5 tablet 07/14/23 oxyCODONE [Roxicodone] 5 mg PO Q6H PRN #15 tablet 07/14/23 - Allergies Allergies/Adverse Reactions: Allergies Allergy/AdvReac Type Severity Reaction Status Date / Time sulfamethoxazole Allergy Severe Hives Verified 07/17/23 10:48 [From Bactrim] trimethoprim [From Bactrim] Allergy Severe Hives Verified 07/17/23 10:48 azithromycin [From Zithromax] Allergy Anaphylaxis Verified 07/17/23 10:48 cariprazine [From Vraylar] Allergy Unknown Verified 07/17/23 10:48 ciprofloxacin Allergy Anaphylaxis Verified 07/17/23 10:48 dextromethorphan Allergy Hallucinati Verified 07/17/23 10:48 [From Nuedexta] ons quinidine [From Nuedexta] Allergy Hallucinati Verified 07/17/23 10:48 ons empagliflozin AdvReac Unknown Verified 07/17/23 10:48 [From Jardiance] lorazepam AdvReac Headache Verified 07/17/23 10:48 metformin AdvReac Nausea Verified 07/17/23 10:48 - Social History Does the pt smoke?: No Smoking Status: Never smoker Does the pt drink ETOH?: Yes Does the pt have substance abuse?: No - Immunizations Immunizations are current?: Yes - POLST Patient has POLST: No POLST Status: Full Code PD ED PE NORMAL - Vitals Vital signs reviewed: Yes (She is tachycardic and hypertensive, afebrile) - General General: No acute distress, Other (She seems to be following me with her eyes, but does not follow any commands. She is nonverbal.) - HEENT HEENT: Other (Dilated but reactive pupils with moist mucous membranes) - Neck Neck: Supple, no meningeal sign - Cardiac Cardiac: Other (Mild resting tachycardia without murmur) - Respiratory Respiratory: No respiratory distress, Clear bilaterally - Abdomen Abdomen: Non tender - Derm Derm: Normal color, Warm and dry - Neuro Eye Opening: Spontaneous Motor: Withdraws to Pain Verbal: None GCS Score: 9 Results - Vitals Vitals: Vital Signs - 24 hr 07/17/23 07/17/23 07/17/23 10:48 11:13 11:33 Temperature 37.1 C 36.6 C Heart Rate 111 H 109 H 110 H Respiratory 22 18 19 Rate Blood Pressure 185/119 H 169/112 H 188/125 H O2 Saturation 95 94 97 07/17/23 07/17/23 07/17/23 12:00 12:30 13:41 Temperature Heart Rate 100 102 H 101 H Respiratory 97 H 24 18 Rate Blood Pressure 165/114 H 154/111 H 133/97 H O2 Saturation 97 94 92 07/17/23 07/17/23 07/17/23 15:16 15:45 16:23 Temperature 36.2 C L Heart Rate 96 98 Respiratory 17 17 22 Rate Blood Pressure 154/101 H 150/101 H O2 Saturation 99 97 07/17/23 17:06 Temperature Heart Rate 96 Respiratory 18 Rate Blood Pressure 156/101 H O2 Saturation 96 Oxygen O2 Source Room air - EKG (time done) 1124 EKG releavant findings:: EKG personally interpreted by author of this note. Relevant findings are: Rate: Rate (enter#) (110) Rhythm: Sinus tachycardia [place]: Normal Intervals: Normal ID, Prolonged QT QRS: Normal Ischemia: Normal ST segments - Labs Labs: Microbiology 07/17/23 14:10 CSF Culture - Preliminary Cerebral Spinal Fluid Laboratory Tests 07/17/23 07/17/23 07/17/23 10:48 10:48 11:32 WBC 10.2 RBC 5.01 Hgb 13.0 Hct 39.4 MCV 78.6 L MCH 25.9 L MCHC 33.0 RDW 15.0 Plt Count 169 MPV 9.7 Neut # (Auto) 5.0 Lymph # (Auto) 4.3 H [place] # (Auto) 0.7 Eos # (Auto) 0.1 Baso # (Auto) 0.0 Absolute Nucleated RBC 0.00 Nucleated RBC % 0.0 Sodium 137 Potassium 3.6 Chloride 101 Carbon Dioxide 28 Anion Gap 8.0 BUN 15 Creatinine 0.5 L Estimated GFR (MDRD) 136 Glucose 132 H Calcium 9.9 Magnesium 1.8 Total Bilirubin 0.4 AST 17 ALT 25 Alkaline Phosphatase 61 Total Creatine Kinase 20 L Total Protein 7.7 Albumin 4.6 Globulin 3.1 Albumin/Globulin Ratio 1.5 Lipase 41 TSH 2.51 Urine Color YELLOW Urine Clarity CLEAR Urine pH 7.0 Ur Specific [place] 1.010 Urine Protein NEGATIVE Urine Glucose (UA) 500 H Urine Ketones NEGATIVE Urine Occult Blood TRACE-INTA Urine Nitrite NEGATIVE Urine Bilirubin NEGATIVE Urine Urobilinogen 0.2 (NORMAL) Ur Leukocyte Esterase NEGATIVE Ur Microscopic Review NOT INDICATED Urine Culture Comments NOT INDICATED Urine HCG, Qual NEGATIVE CSF Color CSF Clarity Xanthrochromic CSF WBC CSF RBC CSF Cell Count Tube # CSF Glucose CSF Total Protein Salicylates < 1.5 Urine Opiates Screen NEGATIVE Ur Buprenorphine Scrn NEGATIVE Ur Oxycodone Screen NEGATIVE Urine Methadone Screen NEGATIVE Acetaminophen 0.3 Ur Barbiturates Screen NEGATIVE Ur Tricyclics Screen NEGATIVE Ur Phencyclidine Scrn NEGATIVE Ur Amphetamine Screen NEGATIVE U Methamphetamines Scrn NEGATIVE U Benzodiazepines Scrn POSITIVE H Urine Cocaine Screen NEGATIVE U Cannabinoids Screen NEGATIVE Ur Drug Screen Comment CUTOFF CONC BELOW: Ethyl Alcohol < 10.0 07/17/23 14:10 WBC RBC Hgb Hct MCV MCH MCHC RDW Plt Count MPV Neut # (Auto) Lymph # (Auto) [place] # (Auto) Eos # (Auto) Baso # (Auto) Absolute Nucleated RBC Nucleated RBC % Sodium Potassium Chloride Carbon Dioxide Anion Gap BUN Creatinine Estimated GFR (MDRD) Glucose Calcium Magnesium Total Bilirubin AST ALT Alkaline Phosphatase Total Creatine Kinase Total Protein Albumin Globulin Albumin/Globulin Ratio Lipase TSH Urine Color Urine Clarity Urine pH Ur Specific [place] Urine Protein Urine Glucose (UA) Urine Ketones Urine Occult Blood Urine Nitrite Urine Bilirubin Urine Urobilinogen Ur Leukocyte Esterase Ur Microscopic Review Urine Culture Comments Urine HCG, Qual CSF Color COLORLESS CSF Clarity CLEAR Xanthrochromic ABSENT CSF WBC 1 CSF RBC 0 CSF Cell Count Tube # CSF TUBE# 3 CSF Glucose 97 H CSF Total Protein 48 H Salicylates Urine Opiates Screen Ur Buprenorphine Scrn Ur Oxycodone Screen Urine Methadone Screen Acetaminophen Ur Barbiturates Screen Ur Tricyclics Screen Ur Phencyclidine Scrn Ur Amphetamine Screen U Methamphetamines Scrn U Benzodiazepines Scrn Urine Cocaine Screen U Cannabinoids Screen Ur Drug Screen Comment Ethyl Alcohol Procedures - Lumbar Puncture - Major Position: Laying left side Location: L3-L4 Anesthesia: Local lidocaine CSF: Clear Other: Sterile prep and drape PD Medical Decision Making - ED course ED course: 42-year-old woman presents with significant encephalopathy, possible head injury. Knowing her, there is a strong concern for conversion disorder or psychosomatic illness, that said the differential diagnosis would include meningitis/encephalitis/head injury. Subsequently imaging of the head and neck was unremarkable without signs of trauma intracranial bleed etc. Was notified by the nurse that patient was complaining of pain through blinking with her . I presumed this was again migraine pain as she has been here a few times this week already for that and a dose of droperidol was ordered. I was hoping it might dissociate her to if this was a psychosomatic complaint. On reevaluation at 1246 she is saying "pain," and nothing else to me. Her was able to ascertain that this was on the right side of her body, the whole body. I ordered a dose of Dilaudid and plan to complete lumbar puncture as I am not convinced that this is not still headache related pain. That said in the interim labs have returned showing a normal white count on CBC, unremarkable CMP, glucose urea with otherwise normal urinalysis and toxicology screen only positive for benzodiazepines which is expected given that she does take alprazolam. Subsequently she started talking again, and she was able to move the right side and that felt normal but still was insensate and could not move the left side. That said we did note that she could for example flex the hip on the left side to help us and move the shoulder during the lumbar puncture. She had similar problems with the left side in the past with migraines and will trial a migraine cocktail. The lumbar puncture went well and shows no evidence of meningitis. Subsequently when she regained the use of her left side, not quite complete but she requested discharge. Departure - Departure Disposition: 01 Home, Self Care Clinical Impression: Fall from slip, trip, or stumble, Altered mental status Condition: Good Record reviewed to determine appropriate education?: Yes Comments: You were seen today after a fall, and when you got here, you could not talk and could not move anything. Of course this was very concerning we did CAT scans of your head and neck which were unremarkable. We medicated you for possible atypical migraine with droperidol which had no effect. Subsequently we did a plethora of blood work which showed a normal CBC, normal chemistry panels, urine showed your UTI had cleared up but would continue the course of antibiotics, you are not , we checked for drugs of abuse which were negative with the exception of benzodiazepines which are expected since you are prescribed alprazolam/Xanax, and did a spinal tap which was without evidence of meningitis (1 white cell, 0 red cells, glucose 97, protein 48 in the setting of a blood glucose of 132.) Subsequently were medicated with some pain medication and some her migraine medication and recovered the use of your left side. Recommend you follow-up with your neurologist, next available appointment for further evaluation and treatment. Return for new or worsening symptoms. Do not drink or drive today. Forms: PCP List Discharge Date/Time: 07/17/23 17:08
[2023-07-17 11:21] LABS: BASOPHILS % (AUTO) 0.2 %; EOSINOPHILS # (AUTO) 0.1 10^3/uL (0.0-0.7); EOSINOPHILS % (AUTO) 0.6 %; HCT - HEMATOCRIT 39.4 % (37.0-47.0); LYMPHOCYTES # (AUTO) 4.3 10^3/uL (1.5-3.5); MEAN CORPUSCULAR HEMOGLOBIN 25.9 pg (27.0-31.0); MEAN CORPUSCULAR VOLUME 78.6 fL (81.0-99.0); MEAN PLATELET VOLUME 9.7 fL (7.9-10.8); MONOCYTES # (AUTO) 0.7 10^3/uL (0.0-1.0); MONOCYTES % (AUTO) 6.4 %; NEUTROPHILS % (AUTO) 49.5 %; PLT - PLATELET COUNT 169 10^3/uL (130-450); RED BLOOD COUNT 5.01 10^6/uL (4.20-5.40); WHITE BLOOD COUNT 10.2 x10^3/uL (4.8-10.8)
[2023-07-17 11:33] LABS: ACETAMINOPHEN 0.3 ug/mL; ALBUMIN 4.6 g/dL (3.2-5.5); ALBUMIN/GLOBULIN RATIO 1.5 (1.0-2.2); ALKALINE PHOSPHATASE 61 IU/L (42-121); ALT ALANINE AMINOTRANSFERASE 25 IU/L (10-60); AST ASPARTATE AMINOTRANSFERASE 17 IU/L (10-42); BILIRUBIN,TOTAL 0.4 mg/dL (0.2-1.0); BUN - BLOOD UREA NITROGEN 15 mg/dL (6-20); CALCIUM 9.9 mg/dL (8.5-10.3); CARBON DIOXIDE - CO2 28 mmol/L (21-32); CHLORIDE 101 mmol/L (101-111); CK- CREATINE KINASE 20 IU/L (30-223); CREATININE 0.5 mg/dL (0.6-1.3); ETOH - ETHANOL < 10.0 mg/dL; GFR - MDRD 136 (>89); GLUCOSE 132 mg/dL (74-104); LIPASE 41 U/L (11-82); MAGNESIUM 1.8 mg/dL (1.7-2.3); POTASSIUM 3.6 mmol/L (3.5-4.5); SODIUM 137 mmol/L (135-145); TOTAL PROTEIN 7.7 g/dL (6.4-8.9)
[2023-07-17 11:35] LABS: SALICYLATE < 1.5 mg/dL
[2023-07-17 11:45] LABS: BILIRUBIN,URINE NEGATIVE (NEGATIVE); GLUCOSE, URINE (UA) 500 mg/dL (NEGATIVE); KETONES,URINE (UA) NEGATIVE (NEGATIVE); LEUKOCYTE ESTERASE, URINE NEGATIVE (NEGATIVE); NITRITE,URINE NEGATIVE (NEGATIVE); OCCULT BLOOD,URINE TRACE-INTA (NEGATIVE); PROTEIN,URINE NEGATIVE (NEGATIVE); UROBILINOGEN,URINE 0.2 (NORMAL) E.U./dL (NORMAL)
[2023-07-17 11:46] LABS: CLARITY,URINE CLEAR (CLEAR); HCG UR QUAL NEGATIVE
[2023-07-17 11:47] LABS: THYROID STIMULATING HORMONE 2.51 uIU/mL (0.34-5.60)
[2023-07-17 11:54] LABS: AMPHETAMINE SCREEN,URINE NEGATIVE (NEGATIVE); BARBITURATE SCREEN,UR NEGATIVE (NEGATIVE); BENZODIAZEPINES SCREEN, URINE POSITIVE (NEGATIVE); BUPRENORPHINE SCREEN, URINE NEGATIVE (NEGATIVE); COCAINE SCREEN URINE NEGATIVE (NEGATIVE); METHADONE SCREEN, URINE NEGATIVE (NEGATIVE); METHAMPHETAMINES SCREEN, URINE NEGATIVE (NEGATIVE); OPIATE SCREEN, URINE NEGATIVE (NEGATIVE); OXYCODONE SCREEN, URINE NEGATIVE (NEGATIVE); THC CANNABINOID SCREEN, URINE NEGATIVE (NEGATIVE); TRICYCLIC ANTIDEPRESSANT,URINE NEGATIVE (NEGATIVE)
--- NOTE | 2023-07-17 12:19 | CT Report ---
PROCEDURE: Head WO INDICATIONS: head inj/ams TECHNIQUE: Noncontrast 4.5 mm thick angled axial sections acquired from the foramen magnum to the vertex. For r adiation dose reduction, the following was used: automated exposure control, adjustment of mA and/or kV according to patient size. COMPARISON: 07/13/2023 FINDINGS: Image quality: Diagnostic CSF spaces: Basal cisterns are patent. Lateral ventricles are symmetric. Volume: Generally maintained Brain: No intracranial hemorrhage. Jackson-white differentiation is grossly maintained. Craniofacial structures: No displaced fracture. Sinuses are clear. Orbits are intact. IMPRESSION: No acute intracranial abnormality. If there is high concern for parenchymal pathology, consider furth er evaluation with MRI. Reviewed by: Yusuf Huerta MD on 07/17/2023 12:17 PM PDT Approved by: Yusuf Huerta MD on 07/17/2023 12:17 PM PDT Station ID: [id number]
--- NOTE | 2023-07-17 12:21 | CT Report ---
PROCEDURE: Cervical Spine WO INDICATIONS: head inj/ams TECHNIQUE: Noncontrast 3 mm thick sections acquired from the skull base to the T4 level. Sagittal and coronal r eformats were then constructed. For radiation dose reduction, the following was used: automated exp osure control, adjustment of mA and/or kV according to patient size. COMPARISON: 12/05/2022 FINDINGS: Image quality: Diagnostic Bones: Vertebral body heights are well-maintained. No evidence of traumatic subluxation. Soft tissues: No pathologic prevertebral soft tissue swelling. No apical pneumothorax. IMPRESSION: No acute fracture or traumatic subluxation of the cervical spine If there is high concern for further derangement, consider MRI evaluation. Reviewed by: Yusuf Huerta MD on 07/17/2023 12:19 PM PDT Approved by: Yusuf Huerta MD on 07/17/2023 12:19 PM PDT Station ID: [id number]
[2023-07-17] MEDS: DROPERIDOL 5 MG/2 ML VIAL IVP STA (12:22)
[2023-07-17] MEDS: HYDROmorphone 1 MG/ML CARPUJECT IVP STA ×2 (13:37→15:13)
[2023-07-17 14:27] LABS: CLARITY,CSF CLEAR (CLEAR); COLOR,CSF COLORLESS (COLORLESS); CSF TUBE # CSF TUBE# 3; CSF XANTHOCHROMIA ABSENT (ABSENT); RED BLOOD CELL,CSF 0 /mm^3 (0-1); WHITE BLOOD CELL,CSF 1 /mm^3 (0-5)
[2023-07-17 14:54] LABS: CSF - GLUCOSE 97 mg/dL (45-70); TOTAL PROTEIN,CSF 48 mg/dL (15-45)
[2023-07-17] MEDS: PROCHLORPERAZINE 10 MG/2 ML VIAL IVP STA (15:07)
[2023-07-17] MEDS: KETOROLAC 15 MG/ML VIAL IVP STA (15:10)
[2023-07-17] MEDS: diphenhydrAMINE INJ 50 MG/ML VIAL IVP STA (15:12)
[2023-07-17] MEDS: BENZONATATE 100 MG CAPSULE PO STA (15:59)
[2023-07-17] MEDS: guaiFENesin/CODEINE 5 ML UDC PO STA (15:59)
[2023-07-17 17:10] VITALS: BP 156/101; O2SAT 96
== END 2023-07-17 17:08 | disposition home or self-care (01) ==
LOC: EDUNIT# → ED 10:40
DX: R41.82 Altered mental status, unspecified (principal); W01.0XXA Fall on same level from slipping, tripping and stumbling without subsequent striking against object, initial encounter; Y92.008 Other place in unspecified non-institutional (private) residence as the place of occurrence of the external cause; E11.9 Type 2 diabetes mellitus without complications; Z86.73 Personal history of transient ischemic attack (TIA), and cerebral infarction without residual deficits; Z79.899 Other long term (current) drug therapy; Z79.84 Long term (current) use of oral hypoglycemic drugs; Z79.4 Long term (current) use of insulin
CPT/HCPCS: 36415; 62270; 70450; 72125; 80053; 80143; 80179; 80306; 81003; 81025; 81599; 82077; 82550; 82945; 83690; 83735; 84157; 84443; 85025; 87070; 87205; 89051; 93005; 96374; 96375; 96376; 99283; 99285; A9270; J1170; J1200; 81001; 87086; 87529

== ENCOUNTER 2023-08-01 08:00 | Outpatient (CLI) | payer OTHER ==
[2023-08-01 14:55] LABS: BILIRUBIN,URINE NEGATIVE (NEGATIVE); GLUCOSE, URINE (UA) NEGATIVE (NEGATIVE); KETONES,URINE (UA) NEGATIVE (NEGATIVE); LEUKOCYTE ESTERASE, URINE MODERATE (NEGATIVE); NITRITE,URINE POSITIVE (NEGATIVE); OCCULT BLOOD,URINE SMALL (NEGATIVE); PROTEIN,URINE NEGATIVE (NEGATIVE); UROBILINOGEN,URINE 0.2 (NORMAL) E.U./dL (NORMAL)
[2023-08-01 14:56] LABS: CLARITY,URINE HAZY (CLEAR)
[2023-08-01 15:13] LABS: BACTERIA,URINE Many /HPF (None Seen); RBC,URINE 0-5 /HPF (0-5); SQUAMOUS EPITHELIAL CELL,UR RARE Squamous (<= Few); WBC,URINE >25 /HPF (0-5)
== END 2023-08-01 23:59 | disposition home or self-care (01) ==
LOC: LAB.S 08:00
PROVIDERS: ATTEND Physician Assistant Medical
DX: E11.65 Type 2 diabetes mellitus with hyperglycemia (principal)
CPT/HCPCS: 81001; 87077; 87086; 87181

== ENCOUNTER 2023-08-20 10:13 | Emergency (ER) | payer OTHER ==
[2023-08-20 11:37] LABS: BASOPHILS % (AUTO) 0.3 %; EOSINOPHILS # (AUTO) 0.1 10^3/uL (0.0-0.7); EOSINOPHILS % (AUTO) 1.5 %; HCT - HEMATOCRIT 38.9 % (37.0-47.0); HGB - HEMOGLOBIN 12.3 g/dL (12.0-16.0); LYMPHOCYTES # (AUTO) 2.9 10^3/uL (1.5-3.5); LYMPHOCYTES % (AUTO) 41.9 %; MEAN CORPUSCULAR HEMOGLOBIN 25.3 pg (27.0-31.0); MEAN CORPUSCULAR HGB CONC 31.6 g/dL (32.0-36.0); MEAN PLATELET VOLUME 9.3 fL (7.9-10.8); MONOCYTES # (AUTO) 0.3 10^3/uL (0.0-1.0); MONOCYTES % (AUTO) 4.6 %; NEUTROPHILS # (AUTO) 3.5 10^3/uL (1.5-6.6); PLT - PLATELET COUNT 144 10^3/uL (130-450); RED BLOOD COUNT 4.86 10^6/uL (4.20-5.40); RED CELL DISTRIBUTION WIDTH 14.7 % (12.0-15.0); WHITE BLOOD COUNT 6.9 x10^3/uL (4.8-10.8)
[2023-08-20 11:39] LABS: BILIRUBIN,URINE NEGATIVE (NEGATIVE); CLARITY,URINE SL. CLOUDY (CLEAR); GLUCOSE, URINE (UA) 100 mg/dL (NEGATIVE); KETONES,URINE (UA) NEGATIVE (NEGATIVE); LEUKOCYTE ESTERASE, URINE LARGE (NEGATIVE); NITRITE,URINE POSITIVE (NEGATIVE); OCCULT BLOOD,URINE NEGATIVE (NEGATIVE); PH,URINE 6.5 PH (5.0-7.5); PROTEIN,URINE NEGATIVE (NEGATIVE); UROBILINOGEN,URINE 0.2 (NORMAL) E.U./dL (NORMAL)
[2023-08-20 11:40] LABS: HCG UR QUAL NEGATIVE
[2023-08-20 11:50] LABS: WBC,URINE >25 /HPF (0-5)
[2023-08-20 11:51] LABS: BACTERIA,URINE Many /HPF (None Seen); RBC,URINE 0-5 /HPF (0-5); SQUAMOUS EPITHELIAL CELL,UR MANY Squamous (<= Few); WBC CLUMPS,URINE PRESENT
[2023-08-20 11:52] LABS: ALBUMIN 4.4 g/dL (3.2-5.5); ALBUMIN/GLOBULIN RATIO 1.6 (1.0-2.2); BILIRUBIN,TOTAL 0.4 mg/dL (0.2-1.0); CALCIUM 9.9 mg/dL (8.5-10.3); CREATININE 0.6 mg/dL (0.6-1.3); POTASSIUM 3.6 mmol/L (3.5-4.5); TOTAL PROTEIN 7.1 g/dL (6.4-8.9)
--- NOTE | 2023-08-20 12:49 | ED Physician Documentation ---
PD HPI FEMALE - Stated complaint Stated Complaint: /ABD PX - Chief complaint Chief Complaint: Abd Pain - Additional information Additional information: 42-year-old with history of CVA, pulmonary embolism, type 2 diabetes, GERD, kidney stones, chronic bladder infections, fibromyalgia femal says that she feels burning with urination as well as abdominal cramping and discomfort presents emergency department for lower abdominal pain and dysuria. Patient says that this pain started yesterday and lingering vaginal pain with burning sensation. No no recent fevers or chills no new sexual partners. 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 : Chronic bladder infection, Kidney stones, Other HEENT: None Psych: Depression, Anxiety, Bipolar disorder, Panic attacks, ADD/ADHD, Post traumatic stress disorder Musculoskeletal: Fibromyalgia, Chronic back pain Derm: None - Past Surgical History Past Surgical History: Yes Ortho: Spine surgery, Other /MUNICIPAL MAINTENANCE WORKER: section, Hysterectomy, Oophrectomy, Other HEENT: Tonsil/Adenoidectomy - Present Medications Home Medications: Ambulatory Orders Medication Instructions Recorded Confirmed lamoTRIgine [LaMICtal] 200 mg PO BID 05/04/20 07/13/23 acetaZOLAMIDE [Diamox] 250 mg PO DAILY PRN 01/26/23 07/13/23 Lumateperone Tosylate [Caplyta] 42 mg PO HS 02/10/23 07/13/23 Alprazolam [Xanax] 2 mg PO DAILY PRN 04/13/23 07/13/23 Cyclobenzaprine [Flexeril] 10 mg PO TID PRN 04/13/23 07/13/23 Rabeprazole Sodium [Aciphex] 20 mg PO DAILY 04/13/23 07/13/23 Dulaglutide [Trulicity] 0.75 mg SQ DAILY 07/13/23 07/13/23 Erenumab-Aooe [Aimovig 70 mg SQ DAILY 07/13/23 07/13/23 Autoinjector] Insulin NPH Human Isophane 0 unit SUBQ DAILY 07/13/23 07/13/23 [Humulin N Kwikpen] Prochlorperazine [Compazine] 5 mg PO Q6H PRN #20 tablet 07/13/23 Rizatriptan Benzoate [Rizatriptan] 5 mg PO Q6H PRN #10 tablet 07/13/23 cephALEXin [Keflex] 500 mg PO Q6H #20 cap 07/13/23 dexAMETHasone [Decadron] 4 mg PO DAILY #5 tablet 07/14/23 oxyCODONE [Roxicodone] 5 mg PO Q6H PRN #15 tablet 07/14/23 Phenazopyridine HCl [Pyridium] 100 mg PO TID 2 Days #6 tablet 08/20/23 cephALEXin [Keflex] 500 mg PO BID 7 Days #14 cap 08/20/23 Fluconazole 150 mg PO ONCE 1 Days #1 tablet 08/21/23 - Allergies Allergies/Adverse Reactions: Allergies Allergy/AdvReac Type Severity Reaction Status Date / Time sulfamethoxazole Allergy Severe Hives Verified 08/20/23 10:26 [From Bactrim] trimethoprim [From Bactrim] Allergy Severe Hives Verified 08/20/23 10:26 azithromycin [From Zithromax] Allergy Anaphylaxis Verified 08/20/23 10:26 cariprazine [From Vraylar] Allergy Unknown Verified 08/20/23 10:26 ciprofloxacin Allergy Anaphylaxis Verified 08/20/23 10:26 dextromethorphan Allergy Hallucinati Verified 08/20/23 10:26 [From Nuedexta] ons quinidine [From Nuedexta] Allergy Hallucinati Verified 08/20/23 10:26 ons empagliflozin AdvReac Unknown Verified 08/20/23 10:26 [From Jardiance] lorazepam AdvReac Headache Verified 08/20/23 10:26 metformin AdvReac Nausea Verified 08/20/23 10:26 - Social History Does the pt smoke?: Yes Smoking Status: Current some day smoker Does the pt drink ETOH?: Yes Does the pt have substance abuse?: No - Immunizations Immunizations are current?: Yes - POLST Patient has POLST: No POLST Status: Full Code PD ED PE NORMAL - Vitals Vital signs reviewed: Yes - General General: Alert and oriented X 3, No acute distress, Well developed/nourished - HEENT HEENT: Atraumatic - Abdomen Abdomen: Normal bowel sounds, Soft, Non tender, Non distended, No organomegaly - Psych Psych: Normal mood, Normal affect PD ED PE EXPANDED - Female 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), Other (erythema noted on external vagina with cloudy capone vaginal discharge) Results - Vitals Vitals: Vital Signs - 24 hr 08/20/23 08/20/23 12:31 13:25 Temperature 36.8 C Heart Rate 100 90 Respiratory 16 16 Rate Blood Pressure 166/114 H 150/90 H O2 Saturation 96 98 Oxygen O2 Source Room air - Labs Labs: Microbiology 08/20/23 10:40 Urine Culture - Preliminary Urine, Ureter - Urethra Laboratory Tests 08/20/23 08/20/23 08/20/23 10:40 11:31 11:31 WBC 6.9 RBC 4.86 Hgb 12.3 Hct 38.9 MCV 80.0 L MCH 25.3 L MCHC 31.6 L RDW 14.7 Plt Count 144 MPV 9.3 Neut # (Auto) 3.5 Lymph # (Auto) 2.9 Long # (Auto) 0.3 Eos # (Auto) 0.1 Baso # (Auto) 0.0 Absolute Nucleated RBC 0.00 Nucleated RBC % 0.0 Sodium 137 Potassium 3.6 Chloride 108 Carbon Dioxide 23 Anion Gap 6.0 BUN 10 Creatinine 0.6 Estimated GFR (MDRD) 110 Glucose 196 H Calcium 9.9 Total Bilirubin 0.4 AST 22 ALT 29 Alkaline Phosphatase 85 Total Protein 7.1 Albumin 4.4 Globulin 2.7 Albumin/Globulin Ratio 1.6 Lipase 23 Urine Color LT. YELLOW Urine Clarity SL. CLOUDY Urine pH 6.5 Ur Specific [place] 1.010 Urine Protein NEGATIVE Urine Glucose (UA) 100 H Urine Ketones NEGATIVE Urine Occult Blood NEGATIVE Urine Nitrite POSITIVE H Urine Bilirubin NEGATIVE Urine Urobilinogen 0.2 (NORMAL) Ur Leukocyte Esterase LARGE H Urine RBC 0-5 Urine WBC >25 H Urine WBC Clumps PRESENT Ur Squamous Epith Cells MANY Squamous H Urine Bacteria Many H Ur Microscopic Review INDICATED Urine Culture Comments NOT INDICATED Urine HCG, Qual NEGATIVE C. glabrata (PCR) C. krusei (PCR) Alona species DNA Chlam trachomat DNA PCR N.gonorrhoeae DNA (PCR) T. vaginalis (PCR) Bact Vaginosis (PCR) 08/20/23 08/20/23 13:09 13:09 WBC RBC Hgb Hct MCV MCH MCHC RDW Plt Count MPV Neut # (Auto) Lymph # (Auto) Long # (Auto) Eos # (Auto) Baso # (Auto) Absolute Nucleated RBC Nucleated RBC % Sodium Potassium Chloride Carbon Dioxide Anion Gap BUN Creatinine Estimated GFR (MDRD) Glucose Calcium Total Bilirubin AST ALT Alkaline Phosphatase Total Protein Albumin Globulin Albumin/Globulin Ratio Lipase Urine Color Urine Clarity Urine pH Ur Specific [place] Urine Protein Urine Glucose (UA) Urine Ketones Urine Occult Blood Urine Nitrite Urine Bilirubin Urine Urobilinogen Ur Leukocyte Esterase Urine RBC Urine WBC Urine WBC Clumps Ur Squamous Epith Cells Urine Bacteria Ur Microscopic Review Urine Culture Comments Urine HCG, Qual C. glabrata (PCR) NEGATIVE C. krusei (PCR) POSITIVE A Alona species DNA POSITIVE A Chlam trachomat DNA PCR NEGATIVE N.gonorrhoeae DNA (PCR) NEGATIVE T. vaginalis (PCR) NEGATIVE TNP Bact Vaginosis (PCR) NEGATIVE PD Medical Decision Making - ED course ED course: 42-year-old female presents emergency department for abdominal painAnd vaginal irritation and discomfort. Labs have been complete for further evaluation no leukocytosis glucose slightly elevated at 196 no other electrolyte abnormalities normal kidney function. Urinalysis positive for nitrites and leukocytes, she denies any CVA tenderness. I have started patient on antibiotics for urinary tract infection here in the emergency department she has been started on Keflex. Urine has been sent for further cultures. She was given a Toradol shot for pain and discomfort and is well started on some Pyridium. Vaginal swab was complete and ended up testing positive for yeast infection she did have some vaginal erythema and irritation upon physical exam with Corina goldstein at bedside. I have given her a one-time dose of flucanazole here in the emergency department and she is told to repeat in 72 hours as needed prescription sent to her preferred pharmacy for flucanazole and Keflex. Patient told to follow-up with primary care provider we will call her if she needs to change her antibiotics.All questions answered safe for discharge. Departure - Departure Disposition: 01 Home, Self Care Clinical Impression: UTI (urinary tract infection) Instructions: UTI, ED UTI Cystitis Female Prescriptions: Fluconazole 150 mg PO ONCE 1 Days #1 tablet cephALEXin [Keflex] 500 mg PO BID 7 Days #14 cap Phenazopyridine HCl [Pyridium] 100 mg PO TID 2 Days #6 tablet Comments: Thank you for trusting us with your care. I believe that you are experiencing urinary tract infection given how your urine appears as well as symptoms you are describing. We have also collected vaginal swabs here in the emergency department and we have sent this to the lab we will call you with what the re sults are to tell you if you need to change any antibiotics. We have sent your urine off for cultures we will call you pain and change antibiotics continue with Tylenol ibuprofen for pain and discomfort I have also sent a medication called Pyridium which will turn your urine bright orange and that should help with the burning sensation you are feeling. I have sent antibiotic Keflex as well as Pyridium to your preferred pharmacy please come back to the ER if your symptoms have not improved in 48 hours or if you are having any worsening symptoms. Wishing you a speedy recovery. Forms: PCP List Discharge Date/Time: 08/20/23 13:25
[2023-08-20] MEDS: cephALEXin 250 MG CAPSULE PO STA (13:12)
[2023-08-20] MEDS: PHENAZOPYRIDINE 100 MG TABLET PO STA (13:12)
[2023-08-20] MEDS: KETOROLAC 30 MG/ML VIAL IM STA (13:14)
[2023-08-20 13:27] VITALS: BP 150/90; O2SAT 98
[2023-08-20 15:12] LABS: BACTERIAL VAGINOSIS DNA NEGATIVE (NEGATIVE); CANDIDA GLABRATA DNA NEGATIVE (NEGATIVE); CANDIDA GROUP DNA POSITIVE (NEGATIVE); CANDIDA KRUSEI DNA POSITIVE (NEGATIVE); TRICHOMONAS VAGINALIS DNA NEGATIVE (NEGATIVE)
[2023-08-20 17:18] LABS: CHLAMYDIA TRACHOMATIS DNA NEGATIVE (NEGATIVE); NEISSERIA GONORRHOEAE DNA NEGATIVE (NEGATIVE)
== END 2023-08-20 13:25 | disposition home or self-care (01) ==
LOC: ED 10:13
DX: N39.0 Urinary tract infection, site not specified (principal); B37.31 Acute candidiasis of vulva and vagina; F17.200 Nicotine dependence, unspecified, uncomplicated
CPT/HCPCS: 36415; 80053; 81001; 81025; 81514; 83690; 85025; 87086; 87491; 87591; 96372; 99283; 99284; A9270; 81003; 87077; 87081; 87181; 87661

== ENCOUNTER 2023-08-30 07:36 | Emergency (ER) | payer OTHER ==
[2023-08-30 08:09] LABS: BILIRUBIN,URINE NEGATIVE (NEGATIVE); KETONES,URINE (UA) NEGATIVE (NEGATIVE); LEUKOCYTE ESTERASE, URINE SMALL (NEGATIVE)
[2023-08-30 08:12] LABS: CLARITY,URINE CLOUDY (CLEAR)
[2023-08-30 08:22] LABS: BACTERIA,URINE Moderate /HPF (None Seen); CRYSTALS,URINE 11-25 Triple Phos /LPF; RBC,URINE 0-5 /HPF (0-5); SQUAMOUS EPITHELIAL CELL,UR RARE Squamous (<= Few); WBC,URINE >25 /HPF (0-5)
--- NOTE | 2023-08-30 08:23 | ED Physician Documentation ---
History of Present Illness - Stated complaint Stated Complaint: - Chief complaint Chief Complaint: UTI - History obtained from History obtained from: Patient - Additonal information Additional information: The patient comes to the emergency department chief complaint of recurrence of UTI symptoms for the last few days. She states she just finished a course of Keflex for a UTI that she started on August 19. Her last day was 3 days ago and the symptoms started up again the next day. Patient has a longstanding history of recurrent UTIs and has seen Dr. Potts for this previously, but due to some discomfort with her experience at the clinic, she stopped seeing him. She states that she was post get a cystoscopy at that time to further evaluate her her recurrent UTIs. The patient states she has felt chilled but has not measured a fever. She has also been nauseated, but has not vomited. She is having dysuria but no gross hematuria. She is also been having frequency and some suprapubic and low back pain. The patient denies any changes in her bowel movements. No vaginal complaints. She states that for the last 2 UTIs she has been placed on Keflex and this does not seem to be getting rid of the infection completely. The patient does note that during this process, her blood sugars have been running in the mid to upper 200s regularly. She does not have a sliding scale plan at home. She takes Lantus and another diabetic medication for her diabetes. No other complaints at this time. 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: section, Hysterectomy, Oophrectomy, Other HEENT: Tonsil/Adenoidectomy - Present Medications Home Medications: Ambulatory Orders Medication Instructions Recorded Confirmed lamoTRIgine [LaMICtal] 200 mg PO BID 05/04/20 08/30/23 acetaZOLAMIDE [Diamox] 250 mg PO DAILY PRN 01/26/23 08/30/23 Lumateperone Tosylate [Caplyta] 42 mg PO HS 02/10/23 08/30/23 Alprazolam [Xanax] 2 mg PO DAILY PRN 04/13/23 08/30/23 Cyclobenzaprine [Flexeril] 10 mg PO TID PRN 04/13/23 08/30/23 Rabeprazole Sodium [Aciphex] 20 mg PO DAILY 04/13/23 08/30/23 Erenumab-Aooe [Aimovig 70 mg SQ DAILY 07/13/23 08/30/23 Autoinjector] Insulin NPH Human Isophane 0 unit SUBQ DAILY 07/13/23 08/30/23 [Humulin N Kwikpen] Prochlorperazine [Compazine] 5 mg PO Q6H PRN #20 tablet 07/13/23 08/30/23 Fluconazole 150 mg PO ONCE 1 Days #1 tablet 08/21/23 08/30/23 Exenatide [Byetta] 5 mcg SQ DAILY 08/30/23 08/30/23 HYDROcod/ACETAM 5/325 [[place] 5/325] 1 - 2 tablet PO Q6H PRN #7 tablet 08/30/23 Insulin Glargine [Lantus Solostar] 10 unit SUBQ HS 08/30/23 08/30/23 levoFLOXacin [Levofloxacin] 500 mg PO DAILY #10 tablet 08/30/23 - Allergies Allergies/Adverse Reactions: Allergies Allergy/AdvReac Type Severity Reaction Status Date / Time sulfamethoxazole Allergy Severe Hives Verified 08/30/23 07:49 [From Bactrim] trimethoprim [From Bactrim] Allergy Severe Hives Verified 08/30/23 07:49 azithromycin [From Zithromax] Allergy Anaphylaxis Verified 08/30/23 07:49 cariprazine [From Vraylar] Allergy Unknown Verified 08/30/23 07:49 ciprofloxacin Allergy Anaphylaxis Verified 08/30/23 07:49 dextromethorphan Allergy Hallucinati Verified 08/30/23 07:49 [From Nuedexta] ons quinidine [From Nuedexta] Allergy Hallucinati Verified 08/30/23 07:49 ons empagliflozin AdvReac Unknown Verified 08/30/23 07:49 [From Jardiance] lorazepam AdvReac Headache Verified 08/30/23 07:49 metformin AdvReac Nausea Verified 08/30/23 07:49 - Social History Does the pt smoke?: Yes Smoking Status: Current every day smoker Does the pt drink ETOH?: Yes Does the pt have substance abuse?: No - Immunizations Immunizations are current?: Yes - POLST Patient has POLST: No POLST Status: Full Code PD ED PE NORMAL - Vitals Vital signs reviewed: Yes - General General: Alert and oriented X 3, No acute distress - HEENT HEENT: Atraumatic, EOMI, Moist mucous membranes - Neck Neck: Supple, no meningeal sign - Cardiac Cardiac: RRR, No murmur - Respiratory Respiratory: No respiratory distress, Clear bilaterally - Abdomen Abdomen: Soft, Non distended, Other (Moderate suprapubic tenderness with some lesser tenderness of bilateral lower quadrants and flanks. No rebound or guarding.) - Back Back: No spinal TTP - Derm Derm: Normal color, Warm and dry, No rash - Extremities Extremities: No deformity - Neuro Neuro: Alert and oriented X 3 - Psych Psych: Normal mood, Normal affect Results - Vitals Vitals: Vital Signs - 24 hr 08/30/23 08/30/23 07:44 09:45 Temperature 36.3 C L Heart Rate 107 H 103 H Respiratory 15 17 Rate Blood Pressure 137/84 H 127/88 H O2 Saturation 97 94 Oxygen O2 Source Room air - Labs Labs: Laboratory Tests 08/30/23 08/30/23 07:51 08:29 POC Whole Bld Glucose 283 H Urine Color ORANGE Urine Clarity CLOUDY Urine pH Ur Specific [place] Urine Protein Urine Glucose (UA) Urine Ketones NEGATIVE Urine Occult Blood Urine Nitrite Urine Bilirubin NEGATIVE Urine Urobilinogen Ur Leukocyte Esterase SMALL H Urine RBC 0-5 Urine WBC >25 H Ur Squamous Epith Cells RARE Squamous Urine Crystals 11-25 Triple Phos Urine Bacteria Moderate H Ur Microscopic Review INDICATED Urine Culture Comments INDICATED PD Medical Decision Making - ED course Complexity details: reviewed results, re-evaluated patient, considered differential, d/w patient ED course: The patient was treated symptomatically with analgesia, and worked up with a fingerstick glucose and urinalysis in the ED. I reviewed her recent visits and microbiology results, and found the patient had been positive for Klebsiella oxytocin twice. This was fairly pansensitive, but due to the patient's statement of sulfa allergy and Cipro allergy, the best option had been felt to be Keflex. I discussed the patient's allergies with her and she actually stated that she has been able to take Levaquin previously, even though she has a listed Cipro allergy. She states she just gets a yeast infection and has to be put on Diflucan at the same time. I discussed with her the risk of fluoroquinolone induced tendinopathy, which is overall a very low risk and more likely in elderly patients and at this point, given that Keflex has not been effective to an ideal degree, I feel Levaquin would be the best option. The patient's urinalysis was positive for infection and she was started on Levaquin here in the emergency department. [facility] in [place]. Her fingerstick glucose was found to be in the 180s and she was given a subcu dose of regular insulin 10 units for this. I have advised her to call her primary doctor to discuss having a shorter acting insulin sliding scale at home for as needed if she develops significantly elevated blood sugars. We have discussed the usual indications for return. Departure - Departure Disposition: Home, Self Care Clinical Impression: Hyperglycemia, Cystitis Condition: Stable Instructions: ED UTI Cystitis Female, ED Hyperglycemia Diabetic Prescriptions: levoFLOXacin [Levofloxacin] 500 mg PO DAILY #10 tablet HYDROcod/ACETAM 5/325 [[place] 5/325] 1 - 2 tablet PO Q6H PRN #7 tablet PRN Reason: Pain Comments: Your urinalysis is positive for infection, so you have been started on Levaquin here in the emergency department today. A prescription for the same as well as a little pain medicine, has been [facility] transmitted [facility] in [place]. Please pick this up today and take your next dose of antibiotics tomorrow. Your blood sugars have been running higher than is ideal and you have been given a dose of insulin in the emergency department today for this. Is important that you call your doctors office soon as possible to talk to them about potentially having some shorter acting insulin to use as a sliding scale, should you from time to time have readings that are higher than your target. This is better for your health and overall, will keep your sugars under better control. Please be sure to take the entire course of antibiotics as directed until the course is complete. You can call her women's clinic to get set up for gynecology follow-up and you can talk to them about whether they do women's urology, as some financial analyst accountant do. If they do not, then you may have your primary doctor refer you to [facility] urology or urology clinic in [place] for follow-up, to try to get to the bottom of your recurrent urinary tract infection issues.
[2023-08-30] MEDS: KETOROLAC 60 MG/2 ML VIAL IM STA (08:25)
[2023-08-30] MEDS: HYDROmorphone 1 MG/ML CARPUJECT IM STA (08:26)
[2023-08-30] MEDS: ONDANSETRON ODT 4 MG TABLET TL STA (08:26)
[2023-08-30] MEDS: levoFLOXacin 250 MG TABLET PO STA (09:28)
[2023-08-30 09:48] VITALS: O2SAT 94
[2023-08-30] MEDS: INSULIN REGULAR HUMAN 300 UNIT/3 ML VIAL SUBQ STA (09:50)
[2023-08-30] MEDS: HYDROmorphone 0.5 MG/0.5 ML SYRINGE IM STA (09:51)
[2023-08-30 10:29] VITALS: BP 114/83
--- NOTE | 2023-09-01 19:05 | ED Physician Documentation ---
ED Addendum - Addendum Addendum: 09/01/23 19:04 The patient's urine culture is positive for Proteus Penneri, Sensitive to ciprofloxacin, she cannot take ciprofloxacin secondary to an allergy. We will have the patient follow-up with her doctor for further care as needed. If she has worsening or failing to improve expected, she will return to the emergency department. The nurse will call and contact the patient to evaluate how she is feeling.
== END 2023-08-30 10:26 | disposition home or self-care (01) ==
LOC: ED 07:36
DX: N30.90 Cystitis, unspecified without hematuria (principal); E11.65 Type 2 diabetes mellitus with hyperglycemia; Z79.4 Long term (current) use of insulin; Z79.84 Long term (current) use of oral hypoglycemic drugs; F17.200 Nicotine dependence, unspecified, uncomplicated; Z88.1 Allergy status to other antibiotic agents; Z88.2 Allergy status to sulfonamides
CPT/HCPCS: 81001; 87077; 87086; 87181; 96372; 99283; 99284; A9270; J1170; J1815; Q0162; 81003

== ENCOUNTER 2023-09-20 17:07 | Outpatient (CLI) | payer OTHER | END 2023-09-20 23:59 | disposition critical access hospital (66) | LOC: EMS 17:07 | DX: R46.89 Other symptoms and signs involving appearance and behavior (principal); S01.81XA Laceration without foreign body of other part of head, initial encounter; W19.XXXA Unspecified fall, initial encounter; Y92.008 Other place in unspecified non-institutional (private) residence as the place of occurrence of the external cause | CPT/HCPCS: A0425; A0429 ==

== ENCOUNTER 2023-09-20 17:23 | Emergency (ER) | payer OTHER ==
--- NOTE | 2023-09-20 17:45 | ED Physician Documentation ---
PD HPI FOCAL NEURO - Stated complaint Stated Complaint: SYNCOPE/LAC - Chief complaint Chief Complaint: Neuro - History obtained from History obtained from: Patient, Family, EMS - Additional information Additional information: This is a 42-year-old woman who is brought in by ambulance accompanied by her . She has a history of urinary incontinence with bladder pacemaker, GERD, bipolar disorder, chronic back pain, fibromyalgia, PE and stroke. She has about twice weekly episodes associated with migraines where she has left hemiplegia and becomes nonverbal. Today the heard a crash at approximately 4:30 PM and found her on her left side unconscious with a cut on her forehead. Now she is nonverbal and left hemiplegic again. I am able to communicate with her though using head nods and gesturing. She says she has a left-sided headache. She denies other pains at this point. 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 MANUSCRIPTS CURATOR: None : Chronic bladder infection, Kidney stones, Other HEENT: None Psych: Depression, Anxiety, Bipolar disorder, Panic attacks, ADD/ADHD, Post traumatic stress disorder Musculoskeletal: Fibromyalgia, Chronic back pain Derm: None - Past Surgical History Past Surgical History: Yes Ortho: Spine surgery, Other /HISTORICAL MANUSCRIPTS CURATOR: section, Hysterectomy, Oophrectomy, Other HEENT: Tonsil/Adenoidectomy - Present Medications Home Medications: Ambulatory Orders Medication Instructions Recorded Confirmed lamoTRIgine [LaMICtal] 200 mg PO BID 05/04/20 08/30/23 acetaZOLAMIDE [Diamox] 250 mg PO DAILY PRN 01/26/23 08/30/23 Lumateperone Tosylate [Caplyta] 42 mg PO HS 02/10/23 08/30/23 Alprazolam [Xanax] 2 mg PO DAILY PRN 04/13/23 08/30/23 Cyclobenzaprine [Flexeril] 10 mg PO TID PRN 04/13/23 08/30/23 Rabeprazole Sodium [Aciphex] 20 mg PO DAILY 04/13/23 08/30/23 Erenumab-Aooe [Aimovig 70 mg SQ DAILY 07/13/23 08/30/23 Autoinjector] Insulin NPH Human Isophane 0 unit SUBQ DAILY 07/13/23 08/30/23 [Humulin N Kwikpen] Prochlorperazine [Compazine] 5 mg PO Q6H PRN #20 tablet 07/13/23 08/30/23 Fluconazole 150 mg PO ONCE 1 Days #1 tablet 08/21/23 08/30/23 Exenatide [Byetta] 5 mcg SQ DAILY 08/30/23 08/30/23 Fluconazole 150 mg PO DAILY #2 tablet 08/30/23 HYDROcod/ACETAM 5/325 [[place] 5/325] 1 - 2 tablet PO Q6H PRN #7 tablet 08/30/23 Insulin Glargine [Lantus Solostar] 10 unit SUBQ HS 08/30/23 08/30/23 Phenazopyridine HCl [Pyridium] 200 mg PO TID PRN #6 tablet 08/30/23 levoFLOXacin [Levofloxacin] 500 mg PO DAILY #10 tablet 08/30/23 - Allergies Allergies/Adverse Reactions: Allergies Allergy/AdvReac Type Severity Reaction Status Date / Time sulfamethoxazole Allergy Severe Hives Verified 08/30/23 07:49 [From Bactrim] trimethoprim [From Bactrim] Allergy Severe Hives Verified 08/30/23 07:49 azithromycin [From Zithromax] Allergy Anaphylaxis Verified 08/30/23 07:49 cariprazine [From Vraylar] Allergy Unknown Verified 08/30/23 07:49 ciprofloxacin Allergy Anaphylaxis Verified 08/30/23 07:49 dextromethorphan Allergy Hallucinati Verified 08/30/23 07:49 [From Nuedexta] ons quinidine [From Nuedexta] Allergy Hallucinati Verified 08/30/23 07:49 ons empagliflozin AdvReac Unknown Verified 08/30/23 07:49 [From Jardiance] lorazepam AdvReac Headache Verified 08/30/23 07:49 metformin AdvReac Nausea Verified 08/30/23 07:49 - Social History Does the pt smoke?: Yes Smoking Status: Current every day smoker Does the pt drink ETOH?: Yes Does the pt have substance abuse?: No - Immunizations Immunizations are current?: Yes - POLST Patient has POLST: No POLST Status: Full Code PD ED PE NORMAL - Vitals Vital signs reviewed: Yes - General General: Other (She appears anxious, is nonverbal. She can look around in all directions and there is no gaze deficit or preference.) - HEENT HEENT: Other (Shallow 2 cm laceration mid forehead) - Neck Neck: Supple, no meningeal sign, No bony TTP - Cardiac Cardiac: RRR, No murmur - Respiratory Respiratory: No respiratory distress, Clear bilaterally - Abdomen Abdomen: Non tender - Neuro Neuro: Other (No movement of the left arm or left leg. She is insensate there are 2.) Eye Opening: Spontaneous Motor: Obeys Commands Verbal: None GCS Score: 11 Results - Vitals Vitals: Vital Signs - 24 hr 09/20/23 09/20/23 17:38 19:29 Temperature 36.9 C Heart Rate 118 H 105 H Respiratory 18 19 Rate Blood Pressure 156/100 H 146/102 H O2 Saturation 95 93 Oxygen O2 Source Room air - Rads (name of study) CT of the head and facial bones were negative. Relevant Findings:: Final report received, EMP independent interpretation of test Procedures - Laceration (location) forehead Length in cm: 1 Wound type: Linear, Superficial Wound preparation: Irrigated copiously NS Skin layer closure: Dermabond Other: Tetanus UTD PD Medical Decision Making - ED course ED course: She presents after head injury with loss of consciousness. She has a laceration on the forehead that is shallow and we will glue it shot. She is hemiplegic on the left nonverbal. I very much doubt this is a stroke, this happened about twice a week to her and is associated with migraines and therefore thrombolytics were not further considered. Subsequently she was initially medicated with Inapsine and Benadryl. And subsequently followed by a small dose of Dilaudid, Toradol, and Compazine after which she started talking again and moving her left side and requested discharge. Departure - Departure Disposition: 01 Home, Self Care Clinical Impression: Status migrainosus Facial contusion Qualifiers: Encounter type: initial encounter Qualified Code(s): S00.83XA - Contusion of other part of head, initial encounter Facial laceration Qualifiers: Encounter type: initial encounter Qualified Code(s): S01.81XA - Laceration without foreign body of other part of head, initial encounter Hemiplegia Qualifiers: Hemiplegia type: flaccid Hemiplegia etiology: unspecified etiology Hemiplegia laterality: left nondominant side Qualified Code(s): G81.04 - Flaccid hemiplegia affecting left nondominant side Condition: Good Record reviewed to determine appropriate education?: Yes Instructions: ED Head Injury Closed Comments: Continue your efforts to follow-up with your neurologist for definitive diagnosis of why you continue to have intermittent weakness on your left side. Return for new or worsening symptoms. Forms: PCP List
[2023-09-20] MEDS: DROPERIDOL 5 MG/2 ML VIAL IVP STA (17:53)
[2023-09-20] MEDS: diphenhydrAMINE INJ 50 MG/ML VIAL IVP STA (17:54)
[2023-09-20] MEDS: PROCHLORPERAZINE 10 MG/2 ML VIAL IVP STA (18:32)
[2023-09-20] MEDS: KETOROLAC 15 MG/ML VIAL IVP STA (18:32)
[2023-09-20] MEDS: HYDROmorphone 0.5 MG/0.5 ML SYRINGE IVP STA (18:33)
--- NOTE | 2023-09-20 18:59 | CT Report ---
PROCEDURE: Head WO INDICATIONS: head inj TECHNIQUE: Noncontrast 4.5 mm thick angled axial sections acquired from the foramen magnum to the vertex. For r adiation dose reduction, the following was used: automated exposure control, adjustment of mA and/or kV according to patient size. COMPARISON: 07/17/2023 FINDINGS: Image quality: Diagnostic. CSF spaces: Basal cisterns are patent. No extra-axial fluid collections. Ventricles are normal in size and shape. Brain: No midline shift. No intracranial masses or hemorrhage. Jackson-white matter interface is norm al. Skull and face: Calvarium and visualized facial bones are intact, without suspicious lesions. Sinuses: Visualized sinuses and mastoids are clear. IMPRESSION: No acute intracranial pathology. Reviewed by: Dom Khan MD on 09/20/2023 6:58 PM PDT Approved by: Dom Khan MD on 09/20/2023 6:58 PM PDT Station ID: [id number]
--- NOTE | 2023-09-20 19:03 | CT Report ---
PROCEDURE: Maxillofacial WO INDICATIONS: face inj TECHNIQUE: Noncontrast 1.5 mm thick axial images acquired from the mandible through the frontal sinuses, with co benjamin and sagittal reformatting. For radiation dose reduction, the following was used: automated ex posure control, adjustment of mA and/or kV according to patient size. COMPARISON: 12/05/2022 FINDINGS: Image quality: Diagnostic. Bones and teeth: Orbital antonio are intact. Sinus antonio show no fracture or deformity. Nasal bones and septum are intact. Visualized portions of the mandible demonstrate no fractures or subluxation. Zygomatic arches are intact. Pterygoid plates are intact. Visualized portions of the skull base an d auditory canals are intact. Sinuses: Paranasal sinuses are aerated, without fluid levels, mucosal thickening, or mucoceles. [place] air cells are aerated. Soft tissues: No edema, masses, or fluid collections. No enlarged lymph nodes. No soft tissue lace rations or debris. Vascular: Visualized vascular structures appear normal in the absence of contrast. Bony vascular fo ramina and canals are intact. IMPRESSION: CT facial bones without acute fracture. No acute traumatic abnormalities identified. Reviewed by: Dom Khan MD on 09/20/2023 7:01 PM PDT Approved by: Dom Khan MD on 09/20/2023 7:01 PM PDT Station ID: [id number]
[2023-09-20 19:38] VITALS: BP 146/102; O2SAT 93
== END 2023-09-20 19:38 | disposition home or self-care (01) ==
LOC: EDUNIT# → ED 17:23
DX: G43.901 Migraine, unspecified, not intractable, with status migrainosus (principal); G81.94 Hemiplegia, unspecified affecting left nondominant side; R47.02 Dysphasia; S01.81XA Laceration without foreign body of other part of head, initial encounter; S06.9X9A Unspecified intracranial injury with loss of consciousness of unspecified duration, initial encounter; R40.2422 Glasgow coma scale score 9-12, at arrival to emergency department; W19.XXXA Unspecified fall, initial encounter; Y92.009 Unspecified place in unspecified non-institutional (private) residence as the place of occurrence of the external cause; F17.200 Nicotine dependence, unspecified, uncomplicated
CPT/HCPCS: 12011; 70450; 70486; 96374; 96375; 99284; 99285; J1170; J1200

== ENCOUNTER 2023-09-29 10:29 | Emergency (ER) | payer OTHER ==
[2023-09-29 11:13] LABS: BASOPHILS % (AUTO) 0.3 %; EOSINOPHILS # (AUTO) 0.1 10^3/uL (0.0-0.7); EOSINOPHILS % (AUTO) 0.9 %; HCT - HEMATOCRIT 39.5 % (37.0-47.0); LYMPHOCYTES # (AUTO) 2.4 10^3/uL (1.5-3.5); LYMPHOCYTES % (AUTO) 41.8 %; MEAN CORPUSCULAR HGB CONC 32.9 g/dL (32.0-36.0); MEAN PLATELET VOLUME 9.4 fL (7.9-10.8); MONOCYTES # (AUTO) 0.3 10^3/uL (0.0-1.0); MONOCYTES % (AUTO) 4.8 %; NEUTROPHILS % (AUTO) 51.5 %; PLT - PLATELET COUNT 129 10^3/uL (130-450); RED CELL DISTRIBUTION WIDTH 14.2 % (12.0-15.0); WHITE BLOOD COUNT 5.8 x10^3/uL (4.8-10.8)
[2023-09-29 11:32] LABS: ALBUMIN 4.6 g/dL (3.2-5.5); ALBUMIN/GLOBULIN RATIO 1.5 (1.0-2.2); ALKALINE PHOSPHATASE 78 IU/L (42-121); ALT ALANINE AMINOTRANSFERASE 32 IU/L (10-60); AST ASPARTATE AMINOTRANSFERASE 26 IU/L (10-42); BILIRUBIN,TOTAL 0.5 mg/dL (0.2-1.0); BUN - BLOOD UREA NITROGEN 15 mg/dL (6-20); CARBON DIOXIDE - CO2 22 mmol/L (21-32); CHLORIDE 104 mmol/L (101-111); CREATININE 0.5 mg/dL (0.6-1.3); GFR - MDRD 136 (>89); GLUCOSE 281 mg/dL (74-104); LIPASE 29 U/L (11-82); POTASSIUM 3.9 mmol/L (3.5-4.5); SODIUM 134 mmol/L (135-145); TOTAL PROTEIN 7.7 g/dL (6.4-8.9)
[2023-09-29 11:46] LABS: TROPONIN I HIGH SENSITIVITY < 2.3 ng/L (2.3-14.8)
--- NOTE | 2023-09-29 12:19 | XRAY Report ---
PROCEDURE: Chest 1V INDICATIONS: Chest pain TECHNIQUE: One view of the chest was acquired. COMPARISON: Chest x-ray 05/09/2023 FINDINGS: Surgical changes and devices: None. Lungs and pleura: No pleural effusions or pneumothorax. Lungs are clear. Mediastinum: Mediastinal contours appear normal. Heart size is normal. Bones and chest wall: No suspicious bony lesions. Overlying soft tissues appear unremarkable. IMPRESSION: No acute cardiopulmonary process. Reviewed by: Dolly Larsen MD on 09/29/2023 12:17 PM PDT Approved by: Dolly Larsen MD on 09/29/2023 12:17 PM PDT Station ID: [id number]
--- NOTE | 2023-09-29 13:33 | ED Physician Documentation ---
PD HPI CHEST PAIN - Stated complaint Stated Complaint: CHEST PX, STIFF LT ARM - Chief complaint Chief Complaint: Cardiac - Additional information Additional information: 42-year-old female with history of urinary incontinence, bladder peacemaker, GERD, bipolar disorder, chronic back pain, fibromyalgia, pulmonary embolism, stroke. Patient presents emergency department today with chest pain and left arm stiffness. Patient says that she started feeling ill yesterday says that the symptoms feel very similar to the last time she had a pulmonary embolism she is not any blood thinners she does endorse and nausea with vomiting that she has b een having a hard time getting under control with [id number] medications. Patient says that it hurts to take a deep breath and difficulty breathing with any sort of exertional activity. No known recent fevers or chills she also reports that she has stiffness that radiates up the left side of her neck and to her left scapular region. No recent falls or trauma to the chest. 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: None : Chronic bladder infection, Kidney stones, Other HEENT: None Psych: Depression, Anxiety, Bipolar disorder, Panic attacks, ADD/ADHD, Post traumatic stress disorder Musculoskeletal: Fibromyalgia, Chronic back pain Derm: None - Past Surgical History Past Surgical History: Yes Ortho: Spine surgery, Other /SQL DATABASE ADMINISTRATOR: section, Hysterectomy, Oophrectomy, Other HEENT: Tonsil/Adenoidectomy - Present Medications Home Medications: Ambulatory Orders Medication Instructions Recorded Confirmed lamoTRIgine [LaMICtal] 200 mg PO BID 05/04/20 08/30/23 acetaZOLAMIDE [Diamox] 250 mg PO DAILY PRN 01/26/23 08/30/23 Lumateperone Tosylate [Caplyta] 42 mg PO HS 02/10/23 08/30/23 Alprazolam [Xanax] 2 mg PO DAILY PRN 04/13/23 08/30/23 Cyclobenzaprine [Flexeril] 10 mg PO TID PRN 04/13/23 08/30/23 Rabeprazole Sodium [Aciphex] 20 mg PO DAILY 04/13/23 08/30/23 Erenumab-Aooe [Aimovig 70 mg SQ DAILY 07/13/23 08/30/23 Autoinjector] Insulin NPH Human Isophane 0 unit SUBQ DAILY 07/13/23 08/30/23 [Humulin N Kwikpen] Prochlorperazine [Compazine] 5 mg PO Q6H PRN #20 tablet 07/13/23 08/30/23 Fluconazole 150 mg PO ONCE 1 Days #1 tablet 08/21/23 08/30/23 Exenatide [Byetta] 5 mcg SQ DAILY 08/30/23 08/30/23 Fluconazole 150 mg PO DAILY #2 tablet 08/30/23 HYDROcod/ACETAM 5/325 [[place] 5/325] 1 - 2 tablet PO Q6H PRN #7 tablet 08/30/23 Insulin Glargine [Lantus Solostar] 10 unit SUBQ HS 08/30/23 08/30/23 Phenazopyridine HCl [Pyridium] 200 mg PO TID PRN #6 tablet 08/30/23 - Allergies Allergies/Adverse Reactions: Allergies Allergy/AdvReac Type Severity Reaction Status Date / Time sulfamethoxazole Allergy Severe Hives Verified 09/29/23 10:42 [From Bactrim] trimethoprim [From Bactrim] Allergy Severe Hives Verified 09/29/23 10:42 azithromycin [From Zithromax] Allergy Anaphylaxis Verified 09/29/23 10:42 cariprazine [From Vraylar] Allergy Unknown Verified 09/29/23 10:42 ciprofloxacin Allergy Anaphylaxis Verified 09/29/23 10:42 dextromethorphan Allergy Hallucinati Verified 09/29/23 10:42 [From Nuedexta] ons quinidine [From Nuedexta] Allergy Hallucinati Verified 09/29/23 10:42 ons empagliflozin AdvReac Unknown Verified 09/29/23 10:42 [From Jardiance] lorazepam AdvReac Headache Verified 09/29/23 10:42 metformin AdvReac Nausea Verified 09/29/23 10:42 - Social History Does the pt smoke?: Yes Smoking Status: Current every day smoker Does the pt drink ETOH?: Yes Does the pt have substance abuse?: No - Immunizations Immunizations are current?: Yes - POLST Patient has POLST: No POLST Status: Full Code PD ED PE NORMAL - Vitals Vital signs reviewed: Yes - General General: Alert and oriented X 3, No acute distress, Well developed/nourished - HEENT HEENT: Atraumatic - Cardiac Cardiac: RRR - Respiratory Respiratory: No respiratory distress, Clear bilaterally - Abdomen Abdomen: Normal bowel sounds - Back Back: No CVA TTP - Derm Derm: Normal color, Warm and dry, No rash - Extremities Extremities: No deformity, No tenderness to palpate, Normal ROM s pain, No edema - Neuro Neuro: Alert and oriented X 3, 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, No motor deficit, No sensory deficit, Normal speech Eye Opening: Spontaneous Motor: Obeys Commands Verbal: Oriented GCS Score: 15 - Psych Psych: Normal mood, Normal affect Results - Vitals Vitals: Vital Signs - 24 hr 09/29/23 09/29/23 09/29/23 10:36 13:33 15:31 Temperature 36.5 C Heart Rate 109 H 113 H 99 Respiratory 18 22 17 Rate Blood Pressure 144/105 H 127/92 H 132/87 H O2 Saturation 95 96 99 09/29/23 15:52 Temperature 36.6 C Heart Rate 99 Respiratory 17 Rate Blood Pressure 132/87 H O2 Saturation 99 Oxygen O2 Source Room air - EKG (time done) 1041 EKG releavant findings:: EKG personally interpreted by author of this note. Relevant findings are: Rate: Rate (enter#) (109) Rhythm: Sinus tachycardia [place]: Normal Intervals: Normal CT QRS: Normal Ischemia: Normal ST segments Compare to prior EKG: Unchanged from prior EKG Computer interpretation: Agree with computer - Labs Labs: Laboratory Tests 09/29/23 09/29/23 09/29/23 11:07 11:07 13:59 WBC 5.8 RBC 5.00 Hgb 13.0 Hct 39.5 MCV 79.0 L MCH 26.0 L MCHC 32.9 RDW 14.2 Plt Count 129 L MPV 9.4 Neut # (Auto) 3.0 Lymph # (Auto) 2.4 [place] # (Auto) 0.3 Eos # (Auto) 0.1 Baso # (Auto) 0.0 Absolute Nucleated RBC 0.00 Nucleated RBC % 0.0 Sodium 134 L Potassium 3.9 Chloride 104 Carbon Dioxide 22 Anion Gap 8.0 BUN 15 Creatinine 0.5 L Estimated GFR (MDRD) 136 Glucose 281 H Calcium 10.0 Total Bilirubin 0.5 AST 26 ALT 32 Alkaline Phosphatase 78 Troponin I High Sens < 2.3 L < 2.3 L Total Protein 7.7 Albumin 4.6 Globulin 3.1 Albumin/Globulin Ratio 1.5 Lipase 29 Nasal Adenovirus (PCR) Nasal B. parapertussis DNA (PCR) Nasal Coronavir 229E PCR Nasal Coronavir HKU1 PCR Nasal Coronavir NL63 PCR Nasal Coronavir OC43 PCR Nasal Enterovir/Rhinovir PCR Nasal Influenza B PCR Nasal Influenza A PCR Nasal Parainfluen 1 PCR Nasal Parainfluen 2 PCR Nasal Parainfluen 3 PCR Nasal Parainfluen 4 PCR Nasal RSV (PCR) Nasal B.pertussis DNA PCR Nasal C.pneumoniae (PCR) Feng Human Metapneumo PCR Nasal M.pneumoniae (PCR) Nasal SARS-CoV-2 (PCR) 09/29/23 15:20 WBC RBC Hgb Hct MCV MCH MCHC RDW Plt Count MPV Neut # (Auto) Lymph # (Auto) [place] # (Auto) Eos # (Auto) Baso # (Auto) Absolute Nucleated RBC Nucleated RBC % Sodium Potassium Chloride Carbon Dioxide Anion Gap BUN Creatinine Estimated GFR (MDRD) Glucose Calcium Total Bilirubin AST ALT Alkaline Phosphatase Troponin I High Sens Total Protein Albumin Globulin Albumin/Globulin Ratio Lipase Nasal Adenovirus (PCR) NOT DETECTED Nasal B. parapertussis DNA (PCR) NOT DETECTED Nasal Coronavir 229E PCR NOT DETECTED Nasal Coronavir HKU1 PCR NOT DETECTED Nasal Coronavir NL63 PCR NOT DETECTED Nasal Coronavir OC43 PCR NOT DETECTED Nasal Enterovir/Rhinovir PCR NOT DETECTED Nasal Influenza B PCR NOT DETECTED Nasal Influenza A PCR NOT DETECTED Nasal Parainfluen 1 PCR NOT DETECTED Nasal Parainfluen 2 PCR NOT DETECTED Nasal Parainfluen 3 PCR NOT DETECTED Nasal Parainfluen 4 PCR NOT DETECTED Nasal RSV (PCR) NOT DETECTED Nasal B.pertussis DNA PCR NOT DETECTED Nasal C.pneumoniae (PCR) NOT DETECTED Feng Human Metapneumo PCR NOT DETECTED Nasal M.pneumoniae (PCR) NOT DETECTED Nasal SARS-CoV-2 (PCR) NOT DETECTED - Rads (name of study) Chest x-ray Relevant Findings:: Final report received, EMP independent interpretation of test, Other (No acute cardiopulmonary process) angio chest w and w/o Relevant Findings:: Final report received, EMP independent interpretation of test, Other (No pulmonary embolus mild interval growth of the left lower lobe nodule measuring up to 10 mm previously 9 mm.) PD Medical Decision Making - ED course ED course: 42-year-old female presents emergency department for shortness of breath. Patient says that she has had no right upper respiratory infection signs or symptoms but this shortness of breath and feels similar to previous pulmonary embolism in the past. Differentials include respiratory infection, pulmonary embolism, acute coronary syndrome. Labs are complete for further evaluation she has no leukocytosis no anemia fairly unremarkable electrolytes, delta troponin negative, normal kidney function and respiratory panel is negative for any r espiratory infections. CT angio was complete for further evaluation and did not reveal any pulmonary embolisms or pneumonia or other acute findings or abnormalities. EKG does not have any ST elevation or depression heart score is 2 so have a low suspicion that this is related to an acute coronary syndrome. Given the thorough workup that we have completed here in the emergency department I do not think any further workup is indicated at this point in time. Patient given very strict ER return precautions she was informed of incidental finding of left lower nodule that has slightly increased in size from 9 mm to 10 mm. She is told to follow-up with her primary care provider and understands to present back to the emergency department for further evaluation. Departure - Departure Disposition: Home, Self Care Clinical Impression: Chest pain Qualifiers: Chest pain type: unspecified Qualified Code(s): R07.9 - Chest pain, unspecified Instructions: ED Chest Pain Atypical Unkn Cause Comments: Thank you for trusting us with your care. We have completed chest x-ray, labs, CT angio we are not seeing any acute abnormal findings at this point in time. We have also given you a couple liters of fluids to help you with rehydrating yourself go home rest I will call you with the respiratory results if it comes back positive for anything and have a low threshold to come back into the emergency department if you are starting to feel worse in any way shape or form. Please help with your primary care provider about today's ER visit. Forms: PCP List Discharge Date/Time: 09/29/23 15:53
[2023-09-29] MEDS: SODIUM CHLORIDE 0.9% 1,000 ML IV ONE ×2 (14:23)
[2023-09-29] MEDS: PROCHLORPERAZINE 10 MG/2 ML VIAL IVP STA (14:24)
[2023-09-29] MEDS ORDERED: iohexoL-300 100 ML VIAL ONE (14:25)
--- NOTE | 2023-09-29 15:11 | CT Report ---
PROCEDURE: Angio Chest INDICATIONS: r/o PE CONTRAST: 80ml omni 300 TECHNIQUE: After the administration of intravenous contrast, 2 mm axial images were acquired from the pulmonary apices to the posterior costophrenic angles during the arterial phase. In addition, 1 mm lung kernel and 5 mm soft tissue kernel reconstructions were performed. 3-dimensional coronal oblique maximum int ensity projection (MIP) reformats, 8 mm axial MIP, and 5 mm coronal and sagittal MPR reformats were t hen performed through the thorax. For radiation dose reduction, the following was used: automated exp osure control, adjustment of mA and/or kV according to patient size. COMPARISON: 09/12/2020. FINDINGS: Image quality: Excellent. Large vessels: No filling defects within the opacified pulmonary arteries, accounting for motion and contrast timing. No evidence of acute aortic syndrome or aortic aneurysm. Lungs and pleura: No consolidation. No pleural effusions. No pneumothorax. Mild interval growth of a 1 cm nodule within the superior aspect of the left lower lobe (09/19), previously 0.9 cm. Linear atel ectasis versus scarring within the right lower lobe and right middle lobe. Mediastinum: Heart size is normal. No pericardial effusion. No large vessel abnormality. No mediastin al adenopathy by size criteria. Chest wall and lower neck: Thyroid is unremarkable. No axillary or supraclavicular adenopathy by size . Bones: No aggressive osseous abnormality. Upper Abdomen: Partially visualized spleen appears enlarged. IMPRESSION: 1.No pulmonary embolus. 2.No acute pulmonary process. 3.Mild interval growth of a left lower lobe nodule measuring approximately 10 mm, previously 9 mm. Reviewed by: Jose L Anne MD on 09/29/2023 2:10 PM AKDT Approved by: Jose L Anne MD on 09/29/2023 2:10 PM AKDT Station ID: [id number]
[2023-09-29 15:35] VITALS: BP 132/87; O2SAT 99
[2023-09-29 16:29] LABS: B. PARAPERTUSSIS- RESP PCR PAN NOT DETECTED; B. PERTUSSIS- RESP PCR PANEL NOT DETECTED; C. PNEUMONIAE- RESP PCR PANEL NOT DETECTED; CORONAVIRUS 229E-RESP PCR NOT DETECTED; CORONAVIRUS HKU1-RESP PCR NOT DETECTED; CORONAVIRUS NL63-RESP PCR NOT DETECTED; CORONAVIRUS OC43-RESP PCR NOT DETECTED; HUMAN METAPNEUMOVIRUS NOT DETECTED; INFLUENZA A- RESP PCR PANEL NOT DETECTED; INFLUENZA B - RESP PCR PANEL NOT DETECTED; M. PNEUMONIAE- RESP PCR PANEL NOT DETECTED; PARAINFLUENZA VIRUS 1 NOT DETECTED; PARAINFLUENZA VIRUS 2 NOT DETECTED; PARAINFLUENZA VIRUS 3 NOT DETECTED; PARAINFLUENZA VIRUS 4 NOT DETECTED; RHINOVIRUS/ENTEROVIRUS NOT DETECTED; RSV- RESP PCR PANEL NOT DETECTED; SARS-CoV-2 -RESP PCR PANEL NOT DETECTED
[2023-09-29] MEDS: iohexoL-300 100 ML VIAL IVP ONE (17:34)
== END 2023-09-29 15:53 | disposition home or self-care (01) ==
LOC: ED 10:29
DX: R07.9 Chest pain, unspecified (principal); F17.200 Nicotine dependence, unspecified, uncomplicated
CPT/HCPCS: 36415; 71045; 71275; 80053; 83690; 84484; 85025; 87633; 93005; 96374; 99283; 99284; Q9967

== ENCOUNTER 2023-10-18 07:09 | Emergency (ER) | payer OTHER ==
[2023-10-18 07:29] VITALS: O2SAT 98
[2023-10-18 07:39] LABS: BILIRUBIN,URINE NEGATIVE (NEGATIVE); GLUCOSE, URINE (UA) 500 mg/dL (NEGATIVE); KETONES,URINE (UA) NEGATIVE (NEGATIVE); LEUKOCYTE ESTERASE, URINE LARGE (NEGATIVE); NITRITE,URINE NEGATIVE (NEGATIVE); OCCULT BLOOD,URINE LARGE (NEGATIVE); PROTEIN,URINE NEGATIVE (NEGATIVE); UROBILINOGEN,URINE 0.2 (NORMAL) E.U./dL (NORMAL)
[2023-10-18 07:40] LABS: CLARITY,URINE CLOUDY (CLEAR); HCG UR QUAL NEGATIVE
[2023-10-18 07:47] LABS: BACTERIA,URINE Many /HPF (None Seen); SQUAMOUS EPITHELIAL CELL,UR MANY Squamous (<= Few); WBC,URINE >25 /HPF (0-5)
[2023-10-18 07:53] LABS: EOSINOPHILS % (AUTO) 0.4 %; HCT - HEMATOCRIT 38.3 % (37.0-47.0); HGB - HEMOGLOBIN 12.5 g/dL (12.0-16.0); LYMPHOCYTES # (AUTO) 2.7 10^3/uL (1.5-3.5); LYMPHOCYTES % (AUTO) 53.3 %; MEAN CORPUSCULAR HEMOGLOBIN 26.5 pg (27.0-31.0); MEAN CORPUSCULAR HGB CONC 32.6 g/dL (32.0-36.0); MEAN CORPUSCULAR VOLUME 81.3 fL (81.0-99.0); MEAN PLATELET VOLUME 9.5 fL (7.9-10.8); MONOCYTES # (AUTO) 0.3 10^3/uL (0.0-1.0); MONOCYTES % (AUTO) 5.5 %; NEUTROPHILS # (AUTO) 2.1 10^3/uL (1.5-6.6); NEUTROPHILS % (AUTO) 40.4 %; PLT - PLATELET COUNT 134 10^3/uL (130-450); RED BLOOD COUNT 4.71 10^6/uL (4.20-5.40); RED CELL DISTRIBUTION WIDTH 13.8 % (12.0-15.0); WHITE BLOOD COUNT 5.1 x10^3/uL (4.8-10.8)
[2023-10-18 08:06] LABS: ALBUMIN 4.6 g/dL (3.2-5.5); ALBUMIN/GLOBULIN RATIO 1.5 (1.0-2.2); BILIRUBIN,TOTAL 0.6 mg/dL (0.2-1.0); CALCIUM 10.1 mg/dL (8.5-10.3); CREATININE 0.5 mg/dL (0.6-1.3); POTASSIUM 3.6 mmol/L (3.5-4.5); TOTAL PROTEIN 7.7 g/dL (6.4-8.9)
--- NOTE | 2023-10-18 08:10 | ED Physician Documentation ---
History of Present Illness - Stated complaint Stated Complaint: FLANK PX - Chief complaint Chief Complaint: Abd Pain - History obtained from History obtained from: Patient, Family - History of Present Illness Timing: How many weeks ago (1) Pain level max: 8 Pain level now: 8 - Additonal information Additional information: Patient is a 42-year-old female who presents to the emergency department stating that she has had vaginal discharge and itching, similar to prior yeast infections. Took Monistat but states that she is still having some itching, she states that she feels like that has now turned into a urinary tract infection, pain and burning with urination. Having lower back pain and lower abdominal pain. Has had chills but no fevers. Has had nausea but no vomiting. No diarrhea or constipation. No STD exposure. She states that she has a history of kidney stones and is concerned that she could be passing a kidney stone as well. She states that it felt like "knives" when she was trying to urinate. 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 : Chronic bladder infection, Kidney stones, Other HEENT: None Psych: Depression, Anxiety, Bipolar disorder, Panic attacks, ADD/ADHD, Post traumatic stress disorder Musculoskeletal: Fibromyalgia, Chronic back pain Derm: None - Past Surgical History Past Surgical History: Yes Ortho: Spine surgery, 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 /[employer] 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: section, Hysterectomy, Oophrectomy, Other HEENT: Tonsil/Adenoidectomy - Present Medications Home Medications: Ambulatory Orders Medication Instructions Recorded Confirmed lamoTRIgine [LaMICtal] 200 mg PO BID 05/04/20 08/30/23 acetaZOLAMIDE [Diamox] 250 mg PO DAILY PRN 01/26/23 08/30/23 Lumateperone Tosylate [Caplyta] 42 mg PO HS 02/10/23 08/30/23 Alprazolam [Xanax] 2 mg PO DAILY PRN 04/13/23 08/30/23 Cyclobenzaprine [Flexeril] 10 mg PO TID PRN 04/13/23 08/30/23 Rabeprazole Sodium [Aciphex] 20 mg PO DAILY 04/13/23 08/30/23 Erenumab-Aooe [Aimovig 70 mg SQ DAILY 07/13/23 08/30/23 Autoinjector] Insulin NPH Human Isophane 0 unit SUBQ DAILY 07/13/23 08/30/23 [Humulin N Kwikpen] Prochlorperazine [Compazine] 5 mg PO Q6H PRN #20 tablet 07/13/23 08/30/23 Fluconazole 150 mg PO ONCE 1 Days #1 tablet 08/21/23 08/30/23 Exenatide [Byetta] 5 mcg SQ DAILY 08/30/23 08/30/23 Fluconazole 150 mg PO DAILY #2 tablet 08/30/23 HYDROcod/ACETAM 5/325 [[place] 5/325] 1 - 2 tablet PO Q6H PRN #7 tablet 08/30/23 Insulin Glargine [Lantus Solostar] 10 unit SUBQ HS 08/30/23 08/30/23 Phenazopyridine HCl [Pyridium] 200 mg PO TID PRN #6 tablet 08/30/23 Cefpodoxime Proxetil [Vantin] 100 mg PO Q12H #14 tablet 10/18/23 HYDROcod/ACETAM 5/325 [[place] 5/325] 1 - 2 ea PO Q6H PRN #14 tablet 10/18/23 Itraconazole 200 mg PO BID #28 cap 10/18/23 Ketorolac [Toradol] 10 mg PO Q6H PRN #20 tablet 10/18/23 Promethazine [Phenergan] 25 mg PO Q6H PRN #10 tab 10/18/23 - Allergies Allergies/Adverse Reactions: Allergies Allergy/AdvReac Type Severity Reaction Status Date / Time sulfamethoxazole Allergy Severe Hives Verified 10/18/23 07:20 [From Bactrim] trimethoprim [From Bactrim] Allergy Severe Hives Verified 10/18/23 07:20 azithromycin [From Zithromax] Allergy Anaphylaxis Verified 10/18/23 07:20 cariprazine [From Vraylar] Allergy Unknown Verified 10/18/23 07:20 ciprofloxacin Allergy Anaphylaxis Verified 10/18/23 07:20 dextromethorphan Allergy Hallucinati Verified 10/18/23 07:20 [From Nuedexta] ons quinidine [From Nuedexta] Allergy Hallucinati Verified 10/18/23 07:20 ons empagliflozin AdvReac Unknown Verified 10/18/23 07:20 [From Jardiance] lorazepam AdvReac Headache Verified 10/18/23 07:20 metformin AdvReac Nausea Verified 10/18/23 07:20 - Social History Does the pt smoke?: Yes Smoking Status: Current every day smoker Does the pt drink ETOH?: Yes Does the pt have substance abuse?: No - Immunizations Immunizations are current?: Yes - POLST Patient has POLST: No POLST Status: Full Code PD ED PE NORMAL - Vitals Vital signs reviewed: Yes - General General: Alert and oriented X 3, No acute distress - HEENT HEENT: Moist mucous membranes - Neck Neck: Supple, no meningeal sign - Cardiac Cardiac: RRR, Strong equal pulses - Respiratory Respiratory: No respiratory distress, Clear bilaterally - Abdomen Abdomen: Soft, Non distended, Other (mild TTP lower abd, no peritoneal signs.) - Back Back: No CVA TTP, No spinal TTP - Derm Derm: Warm and dry - Extremities Extremities: No edema - Neuro Neuro: Alert and oriented X 3 - Psych Psych: Normal mood, Normal affect Results - Vitals Vitals: Vital Signs - 24 hr 10/18/23 10/18/23 07:16 09:51 Temperature 36.0 C L 36.2 C L Heart Rate 107 H 106 H Respiratory 20 16 Rate Blood Pressure 167/124 H 143/99 H O2 Saturation 98 98 Oxygen O2 Source Room air - Labs Labs: Laboratory Tests 10/18/23 10/18/23 10/18/23 07:26 07:47 07:47 WBC 5.1 RBC 4.71 Hgb 12.5 Hct 38.3 MCV 81.3 MCH 26.5 L MCHC 32.6 RDW 13.8 Plt Count 134 MPV 9.5 Neut # (Auto) 2.1 Lymph # (Auto) 2.7 Hart # (Auto) 0.3 Eos # (Auto) 0.0 Baso # (Auto) 0.0 Absolute Nucleated RBC 0.00 Nucleated RBC % 0.0 Sodium 137 Potassium 3.6 Chloride 105 Carbon Dioxide 23 Anion Gap 9.0 BUN 10 Creatinine 0.5 L Estimated GFR (MDRD) 136 Glucose 236 H Calcium 10.1 Total Bilirubin 0.6 AST 28 ALT 34 Alkaline Phosphatase 92 Total Protein 7.7 Albumin 4.6 Globulin 3.1 Albumin/Globulin Ratio 1.5 Lipase 31 Urine Color YELLOW Urine Clarity CLOUDY Urine pH 7.0 Ur Specific [place] 1.020 Urine Protein NEGATIVE Urine Glucose (UA) 500 H Urine Ketones NEGATIVE Urine Occult Blood LARGE H Urine Nitrite NEGATIVE Urine Bilirubin NEGATIVE Urine Urobilinogen 0.2 (NORMAL) Ur Leukocyte Esterase LARGE H Urine RBC 11-25 H Urine WBC >25 H Ur Squamous Epith Cells MANY Squamous H Urine Bacteria Many H Ur Microscopic Review INDICATED Urine Culture Comments NOT INDICATED Urine HCG, Qual NEGATIVE C. glabrata (PCR) C. krusei (PCR) Alona species DNA Chlam trachomat DNA PCR N.gonorrhoeae DNA (PCR) T. vaginalis (PCR) Bact Vaginosis (PCR) 10/18/23 10/18/23 08:30 08:32 WBC RBC Hgb Hct MCV MCH MCHC RDW Plt Count MPV Neut # (Auto) Lymph # (Auto) Hart # (Auto) Eos # (Auto) Baso # (Auto) Absolute Nucleated RBC Nucleated RBC % Sodium Potassium Chloride Carbon Dioxide Anion Gap BUN Creatinine Estimated GFR (MDRD) Glucose Calcium Total Bilirubin AST ALT Alkaline Phosphatase Total Protein Albumin Globulin Albumin/Globulin Ratio Lipase Urine Color Urine Clarity Urine pH Ur Specific [place] Urine Protein Urine Glucose (UA) Urine Ketones Urine Occult Blood Urine Nitrite Urine Bilirubin Urine Urobilinogen Ur Leukocyte Esterase Urine RBC Urine WBC Ur Squamous Epith Cells Urine Bacteria Ur Microscopic Review Urine Culture Comments Urine HCG, Qual C. glabrata (PCR) NEGATIVE C. krusei (PCR) POSITIVE A Alona species DNA NEGATIVE Chlam trachomat DNA PCR NEGATIVE N.gonorrhoeae DNA (PCR) NEGATIVE T. vaginalis (PCR) TNP NEGATIVE Bact Vaginosis (PCR) NEGATIVE PD Medical Decision Making - ED course Complexity details: reviewed results, re-evaluated patient, considered differential, d/w patient ED course: 42-year-old female found to have a UTI. Does not have evidence of pyelonephritis clinically. She was concerned about potential kidney stones as she has had these, CT scan does not show any evidence of kidney stone. Her vaginal swab was pending at the time of discharge, but came back positive for Alona Krusei. As this is usually resistant to fluconazole and she has already tried miconazole cream, we will trial her on oral itraconazole. Will have her follow-up with her doctor for further care for this. Patient is well-appearing, nontoxic. Given a dose of IV Dilaudid and IV Toradol as well as IV Rocephin here. No evidence of sepsis. Patient counseled regarding signs and symptoms for which I believe and urgent re-evaluation would be necessary. Patient with good understanding of and agreement to plan and is comfortable going home at this time This document was made in part using voice recognition software. While efforts are made to proofread this document, sound alike and grammatical errors may occur. Departure - Departure Disposition: Home, Self Care Clinical Impression: Back spasm UTI (urinary tract infection) Qualifiers: Urinary tract infection type: acute cystitis Hematuria presence: with hematuria Qualified Code(s): N30.01 - Acute cystitis with hematuria Condition: Good Instructions: ED UTI Cystitis Female Follow-Up: Arianna Ramirez FNP [Primary Care Provider] - Prescriptions: Itraconazole 200 mg PO BID #28 cap HYDROcod/ACETAM 5/325 [[place] 5/325] 1 - 2 ea PO Q6H PRN #14 tablet PRN Reason: Pain Promethazine [Phenergan] 25 mg PO Q6H PRN #10 tab PRN Reason: Nausea / Vomiting Ketorolac [Toradol] 10 mg PO Q6H PRN #20 tablet PRN Reason: pain Cefpodoxime Proxetil [Vantin] 100 mg PO Q12H #14 tablet Comments: Your prescriptions were sent to [facility] in [place]. Please take all antibiotics until gone. Please return if you worsen. Please follow-up with your doctor for further care. As we discussed there is gas within the urinary bladder, this may be due to to your infection, but could also be due to a fistula between your intestines and your bladder. This should have further investigation with your doctor if this does not resolve with treatment of the infection. Your vaginal swab is also still pending, I will follow-up on this later today and send treatment to the pharmacy for you if it comes back positive. I am prescribing a short course of narcotic pain medication for you. These are potentially dangerous and addictive medications that should be used carefully. These medications may constipate you. Take an fukn-[id number] stool softener (docusate) twice daily with plenty of water while taking these medications. If you go 24 hours without a bowel movement, take [id number] miralax, per package instructions. Do not drink or drive while taking these medications. If you received narcotic or sedating medications while in the emergency department, do not drive for 24 hours. Store this medication in a safe, secure place and out of reach of children. It is a violation of federal law to give or sell this medication to another person or to use in a manner other than prescribed. The ED will not refill narcotic prescriptions, including prescriptions lost or stolen. To dispose of unwanted medications: 1. [facility] at [address] in [place] has a medication drop box. They accept prescription medications (in pill form) Sunday through Sunday 9:00 a.m. to 5:00 p.m. 2. [facility] accepts prescription medications (in pill form only) for disposal year round. Call for more information. 3. Contact the [facility] for the next [facility] sponsored prescription drug collection event. , [phone], or [phone]; EXAM: [id number] CT/ABPEW ([id number]) PROCEDURE: Abdomen/Pelvis W INDICATIONS: Rt lower abd pain CONTRAST: IV OMNIPAQUE 300 100ML TECHNIQUE: After the administration of intravenous contrast, a CT scan of the abdomen and pelvis was performed. Images were recorded and evaluated at appropriate window settings. Reformats: coronal and sagittal. For radiation dose reduction, the following was used: automated exposure control, adjustment of mA and/or kV according to patient size. COMPARISON: CT abdomen and pelvis 01/26/2023. FINDINGS: Image quality: Diagnostic. Lower chest: Unremarkable. Liver: No solid mass. There is large measuring 25.8 cm axis. Diffuse fatty infiltration of the liver. Gallbladder: Gallbladder is normal. Biliary tree: No intrahepatic or extrahepatic dilation, accounting for age. Spleen: Spleen is enlarged measuring 17.2 cm in AP axis. Pancreas: No pancreatic ductal dilation. Adrenals: No adrenal nodule. Kidneys and ureters: No hydronephrosis. No renal cystic lesion which requires follow up. No solid mass. Stomach, bowel and peritoneum: No gastric or small bowel dilation. No abnormal wall thickening. No pathologic free fluid. The appendix is normal. Lymph nodes: No central or retroperitoneal adenopathy. Vessels: No infrarenal aortic aneurysm. Patent portal vein. PELVIS Reproductive organs: Uterus is absent. Bladder: Gas in the urinary bladder. Urinary bladder wall demonstrates normal thickness. Pelvic lymph nodes: No pelvic adenopathy by size criteria. Bones: No aggressive osseous abnormality. Abandoned sacral spine neurostimulator lead. Other: No significant ventral or inguinal hernia. IMPRESSION: Gas in the urinary bladder which could be recent catheterization, infection or fistulous connection with bowel. Recommend correlation with clinical history and urinalysis data. Normal appendix. Hepatosplenomegaly with hepatic steatosis. Forms: PCP List Discharge Date/Time: 10/18/23 09:54
[2023-10-18] MEDS: SODIUM CHLORIDE 0.9% 1,000 ML IV STA (08:11)
[2023-10-18] MEDS: HYDROmorphone 1 MG/ML CARPUJECT IVP STA (08:11)
[2023-10-18] MEDS: cefTRIAXone 1 GM VIAL IVP STA (08:12)
[2023-10-18] MEDS ORDERED: iohexoL-300 100 ML VIAL ONE (08:21)
[2023-10-18] MEDS: PROMETHAZINE INJ 25 MG in SODIUM CHLORIDE 0.9% 50 ML IV STA (08:23)
[2023-10-18] MEDS: iohexoL-300 100 ML VIAL IVP ONE (08:53)
--- NOTE | 2023-10-18 09:26 | CT Report ---
PROCEDURE: Abdomen/Pelvis W INDICATIONS: Rt lower abd pain CONTRAST: IV OMNIPAQUE 300 100ML TECHNIQUE: After the administration of intravenous contrast, a CT scan of the abdomen and pelvis was performed. Images were recorded and evaluated at appropriate window settings. Reformats: coronal and sagittal. F or radiation dose reduction, the following was used: automated exposure control, adjustment of mA and /or kV according to patient size. COMPARISON: CT abdomen and pelvis 01/26/2023. FINDINGS: Image quality: Diagnostic. Lower chest: Unremarkable. Liver: No solid mass. There is large measuring 25.8 cm axis. Diffuse fatty infiltration of the liver. Gallbladder: Gallbladder is normal. Biliary tree: No intrahepatic or extrahepatic dilation, accounting for age. Spleen: Spleen is enlarged measuring 17.2 cm in AP axis. Pancreas: No pancreatic ductal dilation. Adrenals: No adrenal nodule. Kidneys and ureters: No hydronephrosis. No renal cystic lesion which requires follow up. No solid mas s. Stomach, bowel and peritoneum: No gastric or small bowel dilation. No abnormal wall thickening. No pa thologic free fluid. The appendix is normal. Lymph nodes: No central or retroperitoneal adenopathy. Vessels: No infrarenal aortic aneurysm. Patent portal vein. PELVIS Reproductive organs: Uterus is absent. Bladder: Gas in the urinary bladder. Urinary bladder wall demonstrates normal thickness. Pelvic lymph nodes: No pelvic adenopathy by size criteria. Bones: No aggressive osseous abnormality. Abandoned sacral spine neurostimulator lead. Other: No significant ventral or inguinal hernia. IMPRESSION: Gas in the urinary bladder which could be recent catheterization, infection or fistulous connection w ith bowel. Recommend correlation with clinical history and urinalysis data. Normal appendix. Hepatosplenomegaly with hepatic steatosis. Reviewed by: María Lemus MD, PhD on 10/18/2023 9:25 AM PDT Approved by: María Lemus MD, PhD on 10/18/2023 9:25 AM PDT Station ID: [id number]
[2023-10-18] MEDS: KETOROLAC 30 MG/ML VIAL IVP STA (09:48)
[2023-10-18 10:07] VITALS: BP 143/99
[2023-10-18 11:10] LABS: CHLAMYDIA TRACHOMATIS DNA NEGATIVE (NEGATIVE); NEISSERIA GONORRHOEAE DNA NEGATIVE (NEGATIVE)
[2023-10-18 12:24] LABS: BACTERIAL VAGINOSIS DNA NEGATIVE (NEGATIVE); CANDIDA GLABRATA DNA NEGATIVE (NEGATIVE); CANDIDA GROUP DNA NEGATIVE (NEGATIVE); CANDIDA KRUSEI DNA POSITIVE (NEGATIVE); TRICHOMONAS VAGINALIS DNA NEGATIVE (NEGATIVE)
== END 2023-10-18 09:54 | disposition home or self-care (01) ==
LOC: ED 07:09 → SUPCPDRO 07:09 → ED 09:54
DX: R39.89 Other symptoms and signs involving the genitourinary system (principal); N30.01 Acute cystitis with hematuria; B37.31 Acute candidiasis of vulva and vagina; M62.830 Muscle spasm of back; F17.200 Nicotine dependence, unspecified, uncomplicated
CPT/HCPCS: 36415; 74177; 80053; 81001; 81025; 81514; 83690; 85025; 87491; 87591; 96365; 96375; 99283; 99284; J1170; J7040; Q9967; 81003; 87086; 87661

== ENCOUNTER 2023-11-11 10:19 | Emergency (ER) | payer OTHER ==
[2023-11-11 10:57] LABS: HCT - HEMATOCRIT 36.9 % (37.0-47.0); HGB - HEMOGLOBIN 12.1 g/dL (12.0-16.0); LYMPHOCYTES # (AUTO) 2.3 10^3/uL (1.5-3.5); LYMPHOCYTES % (AUTO) 49.6 %; MEAN CORPUSCULAR HEMOGLOBIN 25.7 pg (27.0-31.0); MEAN CORPUSCULAR HGB CONC 32.8 g/dL (32.0-36.0); MEAN CORPUSCULAR VOLUME 78.5 fL (81.0-99.0); MEAN PLATELET VOLUME 9.7 fL (7.9-10.8); MONOCYTES # (AUTO) 0.2 10^3/uL (0.0-1.0); MONOCYTES % (AUTO) 4.5 %; NEUTROPHILS # (AUTO) 2.1 10^3/uL (1.5-6.6); NEUTROPHILS % (AUTO) 45.5 %; PLT - PLATELET COUNT 122 10^3/uL (130-450); RED CELL DISTRIBUTION WIDTH 13.4 % (12.0-15.0); WHITE BLOOD COUNT 4.6 x10^3/uL (4.8-10.8)
[2023-11-11 11:11] LABS: ALBUMIN 4.2 g/dL (3.2-5.5); ALBUMIN/GLOBULIN RATIO 1.2 (1.0-2.2); BILIRUBIN,TOTAL 0.6 mg/dL (0.2-1.0); CALCIUM 9.3 mg/dL (8.5-10.3); CREATININE 0.5 mg/dL (0.6-1.3); POTASSIUM 3.5 mmol/L (3.5-4.5); TOTAL PROTEIN 7.6 g/dL (6.4-8.9)
--- NOTE | 2023-11-11 11:35 | ED Physician Documentation ---
History of Present Illness - Stated complaint Stated Complaint: ABD PX,N/V,BACK PX - Chief complaint Chief Complaint: Abd Pain - Additonal information Additional information: Patient is a 43-year-old female presenting to the emergency department with type 2 diabetes on insulin presents with right lower quadrant pain that has worsened yesterday and progressed into today. Patient notes nausea associated with her symptoms but no vomiting. She notes severe right lower quadrant pain radiating to her lower back. She notes she was seen here on 10/17 for similar symptoms. At the time she was diagnosed with a UTI and yeast infection. Patient notes her symptoms improved while she was on antibiotics and antifungals until her pain returned shortly after stopping these medications. She notes pain has progressively worsened over the last 1 to 2 days. She notes she has been febrile to 101 at home. She took Tylenol and a muscle relaxer at home prior to coming to the emergency department. PD PAST MEDICAL HISTORY - Past Medical History Cardiovascular: Pulmonary embolism, Other Respiratory: Pneumonia Neuro: CVA, Headaches, Migraines, Fainting Endocrine/Autoimmune: Type 2 diabetes GI: GERD [employer]: None : Chronic bladder infection, Kidney stones, Other HEENT: None Psych: Depression, Anxiety, Bipolar disorder, Panic attacks, ADD/ADHD, Post traumatic stress disorder Musculoskeletal: Fibromyalgia, Chronic back pain Derm: None - Past Surgical History Past Surgical History: Yes Ortho: Spine surgery, Other /[employer]: section, Hysterectomy, Oophrectomy, Other HEENT: Tonsil/Adenoidectomy - Present Medications Home Medications: Ambulatory Orders Medication Instructions Recorded Confirmed lamoTRIgine [LaMICtal] 200 mg PO BID 05/04/20 08/30/23 acetaZOLAMIDE [Diamox] 250 mg PO DAILY PRN 01/26/23 08/30/23 Lumateperone Tosylate [Caplyta] 42 mg PO HS 02/10/23 08/30/23 Alprazolam [Xanax] 2 mg PO DAILY PRN 04/13/23 08/30/23 Cyclobenzaprine [Flexeril] 10 mg PO TID PRN 04/13/23 08/30/23 Rabeprazole Sodium [Aciphex] 20 mg PO DAILY 04/13/23 08/30/23 Erenumab-Aooe [Aimovig 70 mg SQ DAILY 07/13/23 08/30/23 Autoinjector] Insulin NPH Human Isophane 0 unit SUBQ DAILY 07/13/23 08/30/23 [Humulin N Kwikpen] Prochlorperazine [Compazine] 5 mg PO Q6H PRN #20 tablet 07/13/23 08/30/23 Fluconazole 150 mg PO ONCE 1 Days #1 tablet 08/21/23 08/30/23 Exenatide [Byetta] 5 mcg SQ DAILY 08/30/23 08/30/23 Fluconazole 150 mg PO DAILY #2 tablet 08/30/23 HYDROcod/ACETAM 5/325 [[place] 5/325] 1 - 2 tablet PO Q6H PRN #7 tablet 08/30/23 Insulin Glargine [Lantus Solostar] 10 unit SUBQ HS 08/30/23 08/30/23 Phenazopyridine HCl [Pyridium] 200 mg PO TID PRN #6 tablet 08/30/23 Cefpodoxime Proxetil [Vantin] 100 mg PO Q12H #14 tablet 10/18/23 HYDROcod/ACETAM 5/325 [[place] 5/325] 1 - 2 ea PO Q6H PRN #14 tablet 10/18/23 Itraconazole 200 mg PO BID #28 cap 10/18/23 Ketorolac [Toradol] 10 mg PO Q6H PRN #20 tablet 10/18/23 Promethazine [Phenergan] 25 mg PO Q6H PRN #10 tab 10/18/23 - Allergies Allergies/Adverse Reactions: Allergies Allergy/AdvReac Type Severity Reaction Status Date / Time sulfamethoxazole Allergy Severe Hives Verified 11/11/23 10:34 [From Bactrim] trimethoprim [From Bactrim] Allergy Severe Hives Verified 11/11/23 10:34 azithromycin [From Zithromax] Allergy Anaphylaxis Verified 11/11/23 10:34 cariprazine [From Vraylar] Allergy Unknown Verified 11/11/23 10:34 ciprofloxacin Allergy Anaphylaxis Verified 11/11/23 10:34 dextromethorphan Allergy Hallucinati Verified 11/11/23 10:34 [From Nuedexta] ons quinidine [From Nuedexta] Allergy Hallucinati Verified 11/11/23 10:34 ons empagliflozin AdvReac Unknown Verified 11/11/23 10:34 [From Jardiance] lorazepam AdvReac Headache Verified 11/11/23 10:34 metformin AdvReac Nausea Verified 11/11/23 10:34 - Social History Does the pt smoke?: Yes Smoking Status: Current every day smoker Does the pt drink ETOH?: Yes Does the pt have substance abuse?: No - Immunizations Immunizations are current?: Yes - POLST Patient has POLST: No POLST Status: Full Code PD ED PE NORMAL - Vitals Vital signs reviewed: Yes - General General: Alert and oriented X 3 - HEENT HEENT: Atraumatic - Neck Neck: Supple, no meningeal sign - Cardiac Cardiac: RRR, No murmur, No gallop, No rub, Other (Tachycardic on arrival.) - Respiratory Respiratory: No respiratory distress, Clear bilaterally - Abdomen Abdomen: Normal bowel sounds, Soft, Non distended, Other (Patient abdomen soft on palpation rebound and guarding noted to right lower quadrant with negative Rovsing sign. Negative Baum sign on examination as well. Active bowel sounds on auscultation.) - Female Female : Deferred - Rectal Rectal: Deferred - Derm Derm: Normal color - Extremities Extremities: No deformity - Neuro Neuro: Alert and oriented X 3 Results - Vitals Vitals: Vital Signs - 24 hr 11/11/23 11/11/23 11/11/23 10:24 11:40 12:39 Temperature 37.0 C Heart Rate 116 H 105 H Respiratory 18 18 Rate Blood Pressure 190/124 H 166/109 H O2 Saturation 97 95 11/11/23 11/11/23 15:18 15:22 Temperature 36.9 C Heart Rate 101 H Respiratory Rate Blood Pressure 184/127 H O2 Saturation 96 Oxygen O2 Source Room air - Labs Labs: Laboratory Tests 11/11/23 11/11/23 11/11/23 10:52 10:52 12:16 WBC 4.6 L RBC 4.70 Hgb 12.1 Hct 36.9 L MCV 78.5 L MCH 25.7 L MCHC 32.8 RDW 13.4 Plt Count 122 L MPV 9.7 Neut # (Auto) 2.1 Lymph # (Auto) 2.3 [place] # (Auto) 0.2 Eos # (Auto) 0.0 Baso # (Auto) 0.0 Absolute Nucleated RBC 0.00 Nucleated RBC % 0.0 Sodium 137 Potassium 3.5 Chloride 104 Carbon Dioxide 25 Anion Gap 8.0 BUN 9 Creatinine 0.5 L Estimated GFR (MDRD) 135 Glucose 254 H Calcium 9.3 Total Bilirubin 0.6 AST 36 ALT 40 Alkaline Phosphatase 89 Total Protein 7.6 Albumin 4.2 Globulin 3.4 Albumin/Globulin Ratio 1.2 Lipase 137 H Urine Color YELLOW Urine Clarity CLEAR Urine pH 6.0 Ur Specific [place] 1.020 Urine Protein NEGATIVE Urine Glucose (UA) >=1000 H Urine Ketones NEGATIVE Urine Occult Blood NEGATIVE Urine Nitrite NEGATIVE Urine Bilirubin NEGATIVE Urine Urobilinogen 0.2 (NORMAL) Ur Leukocyte Esterase NEGATIVE Ur Microscopic Review NOT INDICATED Urine Culture Comments NOT INDICATED PD Medical Decision Making - ED course Complexity details: reviewed old records ED course: Patient is a 43-year-old female presenting to the emergency department with right lower quadrant pain. She notes symptoms have been going on for the past few days but progressively worsening. She notes nausea vomiting severe pain. She was seen here last 10/17. She finished a course of antibiotics for a UTI and when she finished the she had worsening abdominal pain that returned shortly after. She notes she has been feverish with nausea and vomiting at home. Vital stable on arrival. Physical exam shows patient mildly diaphoretic but abdomen is soft reproducible guarding and rebound on examination. Given findings will obtain CT abdomen. Patient asking for repeat doses of pain control specifically requesting Dilaudid here in the emergency department. Patient declines wanting any Zofran as she feels does not work for her nausea and would like promethazine. Patient is well-known to the emergency department for recurrent abdominal pain. Previous CT back in 10/17 showed no acute findings other than UTI. Patient's urine is clear today no signs of leukocytosis CMP is unremarkable. Slight elevation in lipase however not 3 times upper limits of normal concerning for pancreatitis. Patient additionally had CT abdomen pelvis showing moderate stool in right lower quadrant. Discussed with patient her pain appears under control on reevaluation no signs of tachycardia no signs of temperature here in the emergency department patient symptoms appear significantly better after intermittent doses of Dilaudid and Toradol.Discussed with patient she has a history of hysterectomy and bilateral oophorectomy. Low suspicion for any ovarian torsion that could have caused her symptoms today and given moderate stool and right lower quadrant symptoms most likely secondary to constipation. Instructed patient narcotics cause worsening constipation and she should avoid these at home she should increase fluids and prune juice and MiraLAX that she can obtain [id number]. There was an incidental finding of splenomegaly of [address] scan however this appears slightly improved from 17 cm seen on imaging 10/17. Patient updated on reassuring findings she was instructed to return with any worsening pain nausea vomiting fevers or any other new or worsening symptoms. Patient understands and is agreeable with this plan. Departure - Departure Disposition: , Self Care Clinical Impression: Constipation Condition: Good Instructions: Abdominal Pain, ED Constipation Comments: You were seen here in the emergency department for your abdominal pain your workup here in the emergency department showed constipation right lower quadrant this most likely causing your symptoms. Avoid any opioids at home as this can cause worsening constipation drink lots of fluids and prune juice at home. Return to the emergency department with any worsening abdominal pain nausea vomiting fevers or chills. Follow-up with your PCP in 2 weeks to ensure resolution of symptoms. Forms: PCP List
[2023-11-11] MEDS: SODIUM CHLORIDE 0.9% 1,000 ML IV STA (11:54)
[2023-11-11] MEDS: KETOROLAC 15 MG/ML VIAL IVP STA ×2 (11:59→16:24)
[2023-11-11] MEDS: HYDROmorphone 1 MG/ML CARPUJECT IVP STA ×2 (12:00→14:39)
[2023-11-11 12:24] LABS: BILIRUBIN,URINE NEGATIVE (NEGATIVE); GLUCOSE, URINE (UA) >=1000 mg/dL (NEGATIVE); KETONES,URINE (UA) NEGATIVE (NEGATIVE); LEUKOCYTE ESTERASE, URINE NEGATIVE (NEGATIVE); NITRITE,URINE NEGATIVE (NEGATIVE); OCCULT BLOOD,URINE NEGATIVE (NEGATIVE); PROTEIN,URINE NEGATIVE (NEGATIVE); UROBILINOGEN,URINE 0.2 (NORMAL) E.U./dL (NORMAL)
[2023-11-11 12:26] LABS: CLARITY,URINE CLEAR (CLEAR)
[2023-11-11] MEDS ORDERED: iohexoL-300 100 ML VIAL ONE (12:31)
[2023-11-11] MEDS: ONDANSETRON 4 MG/2 ML VIAL IVP STA (12:52)
[2023-11-11] MEDS: PROMETHAZINE INJ 25 MG in SODIUM CHLORIDE 0.9% 50 ML IV STA (13:08)
--- NOTE | 2023-11-11 15:55 | CT Report ---
PROCEDURE: Abdomen/Pelvis W INDICATIONS: RLQ pain, febrile, tachycardic TECHNIQUE: Helical axial CT of the abdomen and pelvis was obtained after intravenous contrast adminis tration and reformatted in multiple planes. Radiation dose reduction was achieved using automated exp osure control or adjustment of mA and/or kV according to patient size. COMPARISON: 10/18/2023 FINDINGS: Lower thorax: The lung bases are clear. Heart size normal. No hiatal hernia. Liver: Hepatic parenchyma is diffusely decreased in attenuation without focal mass lesion. Biliary system: No calcified cholelithiasis or pericholecystic inflammation. No evidence of bile du ct dilatation. Pancreas: Unremarkable without mass or inflammation evident. Spleen: Splenomegaly, 15 cm Adrenals: Normal morphology and density. Reproductive system: Unremarkable as visualized. Urinary system: Normal renal size and attenuation. No renal calculi, hydronephrosis, or solid mass p resent. Urinary bladder unremarkable. Gastrointestinal system: The bowel appears unremarkable with no evidence of bowel obstruction or inf lammation. The stomach appears unremarkable. Normal appendix. Moderate fecal debris throughout the co lokesh greater on the right Peritoneal spaces: No mesenteric or retroperitoneal adenopathy. No free air. No free fluid. Vasculature: The IVC, aorta and iliac vasculature are unremarkable. Abdominal wall: Abdominal wall is intact without evidence of ventral or inguinal hernias. Musculoskeletal: Normal bone mineralization. No acute fractures. Abandoned lead for right sacral ne urostimulator IMPRESSION: Normal-appearing osteophyte. Moderate to fecal debris in the right and transverse colon. Splenomegaly, 15 cm Reviewed by: Luis Diallo MD on 11/11/2023 2:54 PM AKDT Approved by: Luis Diallo MD on 11/11/2023 2:54 PM AKDT Station ID: [id number]
[2023-11-11 17:04] VITALS: BP 182/120; O2SAT 98
== END 2023-11-11 17:01 | disposition home or self-care (01) ==
LOC: ED 10:19
DX: K59.00 Constipation, unspecified (principal); E11.9 Type 2 diabetes mellitus without complications; F17.200 Nicotine dependence, unspecified, uncomplicated; Z79.899 Other long term (current) drug therapy; Z79.4 Long term (current) use of insulin
CPT/HCPCS: 36415; 74177; 80053; 81003; 83690; 85025; 96365; 96375; 96376; 99283; 99284; J1170; J7040; Q9967; 81001; 87086

== ENCOUNTER 2023-11-21 09:42 | Outpatient (CLI) | payer OTHER ==
[2023-11-21 11:47] LABS: ESTIMATED AVERAGE GLUCOSE 189 mg/dL (70-100); HEMOGLOBIN A1c% 8.2 % (4.27-6.07)
== END 2023-11-21 09:43 | disposition home or self-care (01) ==
LOC: LAB 09:42
PROVIDERS: ATTEND Nurse Practitioner Family
DX: E11.65 Type 2 diabetes mellitus with hyperglycemia (principal)
CPT/HCPCS: 36415; 83036

== ENCOUNTER 2023-11-22 21:17 | Outpatient (CLI) | payer OTHER | END 2023-11-22 21:18 | disposition critical access hospital (66) | LOC: EMS 21:17 | DX: R07.89 Other chest pain (principal); R29.810 Facial weakness; R53.1 Weakness; R00.0 Tachycardia, unspecified; R47.9 Unspecified speech disturbances | CPT/HCPCS: A0425; A0427 ==

== ENCOUNTER 2023-11-22 21:30 | Emergency (ER) | payer OTHER ==
--- NOTE | 2023-11-22 21:43 | ED Physician Documentation ---
PD HPI FOCAL NEURO - Stated complaint Stated Complaint: STROKE LIKE SYMP - Additional information Additional information: 43-year-old female with history of diabetes, PTSD, bipolar, migraines, colitis, pyelonephritis, GERD, atypical chest pain presents with focal neurologic defic its. EMS gives report. Around 8:30 PM today, patient developed chest pain with potential syncopal event, without clear trauma. She then was noted to have left face, arm, leg weakness. She is not speaking at all but is able to follow some commands. Nitroglycerin was given on the way without clear effect. Blood sugar in 200s. No known blood thinners. No other currently available information. I have immediately called code stroke, requesting immediate CT imaging, teleneurology consult. Staff working on this. ROS Available history as provider above. Patient unable to answer additional questions currently. PD PAST MEDICAL HISTORY - Past Medical History Cardiovascular: Pulmonary embolism, Other Respiratory: Pneumonia Neuro: CVA, Headaches, Migraines, Fainting Endocrine/Autoimmune: Type 2 diabetes GI: GERD ENGLISH ADJUNCT FACULTY: None : Chronic bladder infection, Kidney stones, Other HEENT: None Psych: Depression, Anxiety, Bipolar disorder, Panic attacks, ADD/ADHD, Post traumatic stress disorder Musculoskeletal: Fibromyalgia, Chronic back pain Derm: None - Past Surgical History Past Surgical History: Yes Ortho: Spine surgery, Other /ENGLISH ADJUNCT FACULTY: section, Hysterectomy, Oophrectomy, Other HEENT: Tonsil/Adenoidectomy - Present Medications Home Medications: Ambulatory Orders Medication Instructions Recorded Confirmed lamoTRIgine [LaMICtal] 200 mg PO BID 05/04/20 08/30/23 acetaZOLAMIDE [Diamox] 250 mg PO DAILY PRN 01/26/23 08/30/23 Lumateperone Tosylate [Caplyta] 42 mg PO HS 02/10/23 08/30/23 Alprazolam [Xanax] 2 mg PO DAILY PRN 04/13/23 08/30/23 Cyclobenzaprine [Flexeril] 10 mg PO TID PRN 04/13/23 08/30/23 Rabeprazole Sodium [Aciphex] 20 mg PO DAILY 04/13/23 08/30/23 Erenumab-Aooe [Aimovig 70 mg SQ DAILY 07/13/23 08/30/23 Autoinjector] Insulin NPH Human Isophane 0 unit SUBQ DAILY 07/13/23 08/30/23 [Humulin N Kwikpen] Prochlorperazine [Compazine] 5 mg PO Q6H PRN #20 tablet 07/13/23 08/30/23 Fluconazole 150 mg PO ONCE 1 Days #1 tablet 08/21/23 08/30/23 Exenatide [Byetta] 5 mcg SQ DAILY 08/30/23 08/30/23 Fluconazole 150 mg PO DAILY #2 tablet 08/30/23 HYDROcod/ACETAM 5/325 [Higbee 5/325] 1 - 2 tablet PO Q6H PRN #7 tablet 08/30/23 Insulin Glargine [Lantus Solostar] 10 unit SUBQ HS 08/30/23 08/30/23 Phenazopyridine HCl [Pyridium] 200 mg PO TID PRN #6 tablet 08/30/23 Cefpodoxime Proxetil [Vantin] 100 mg PO Q12H #14 tablet 10/18/23 HYDROcod/ACETAM 5/325 [Higbee 5/325] 1 - 2 ea PO Q6H PRN #14 tablet 10/18/23 Itraconazole 200 mg PO BID #28 cap 10/18/23 Ketorolac [Toradol] 10 mg PO Q6H PRN #20 tablet 10/18/23 Promethazine [Phenergan] 25 mg PO Q6H PRN #10 tab 10/18/23 - Allergies Allergies/Adverse Reactions: Allergies Allergy/AdvReac Type Severity Reaction Status Date / Time sulfamethoxazole Allergy Severe Hives Verified 11/11/23 10:34 [From Bactrim] trimethoprim [From Bactrim] Allergy Severe Hives Verified 11/11/23 10:34 azithromycin [From Zithromax] Allergy Anaphylaxis Verified 11/11/23 10:34 cariprazine [From Vraylar] Allergy Unknown Verified 11/11/23 10:34 ciprofloxacin Allergy Anaphylaxis Verified 11/11/23 10:34 dextromethorphan Allergy Hallucinati Verified 11/11/23 10:34 [From Nuedexta] ons quinidine [From Nuedexta] Allergy Hallucinati Verified 11/11/23 10:34 ons empagliflozin AdvReac Unknown Verified 11/11/23 10:34 [From Jardiance] lorazepam AdvReac Headache Verified 11/11/23 10:34 metformin AdvReac Nausea Verified 11/11/23 10:34 - Social History Does the pt smoke?: Yes Smoking Status: Current every day smoker Does the pt drink ETOH?: Yes Does the pt have substance abuse?: No - Immunizations Immunizations are current?: Yes - POLST Patient has POLST: No POLST Status: Full Code PD ED PE NORMAL - Free text exam Free text exam: Const: no acute distress, non toxic appearing; appears anxious, able to follow some commands, not speaking Eyes: PERRLA, EOMI ENT: mucous membranes moist Neck: supple, non-tender Resp: no respiratory distress, clear to auscultation bilaterally Card: regular rate and rhythm, no murmurs Abd: non tender diffusely, no rigidity or rebound or guarding Back: no T or L spine tenderness, no CVA tenderness bilaterally Extrem: no deformities, no swelling bilateral lower extremities, 2+ distal pulses all extremities Neuro: alert but does not respond to questions verbally. urology nurse 2-12 notable for L lower facial droop. No rotatory or vertical nystagmus. Decreased tone LUE and LLE. Sensation intact to RUE and RLE but diminished including to pain to LUE and LLE. No ankle clonus bilaterally. 5/5 motor strength RUE and RLE but 0/5 LUE and LLE. Normal appearing coordination RUE and RLE but unable to test further LUE and LLE. Skin: no rash, warm and dry NIHSS is currently 19 Results - Vitals Vitals: Vital Signs - 24 hr 11/22/23 11/22/23 11/22/23 22:00 22:04 22:34 Temperature 36.1 C L Heart Rate 117 H 106 H 108 H Respiratory 20 20 Rate Blood Pressure 149/106 H 159/101 H O2 Saturation 98 98 11/22/23 11/22/23 11/22/23 22:44 23:00 23:15 Temperature Heart Rate 109 H 107 H 92 Respiratory 20 20 20 Rate Blood Pressure 161/103 H 165/115 H 146/96 H O2 Saturation 98 96 94 Oxygen O2 Source Room air - EKG (time done) EKG sinus tachycardia without acute ischemia or immediately concerning interval prolongation as per my note EKG releavant findings:: EKG personally interpreted by author of this note. Relevant findings are: - Labs Labs: Laboratory Tests 11/22/23 11/22/23 11/22/23 21:43 21:43 21:43 WBC 5.4 RBC 4.95 Hgb 12.4 Hct 38.5 MCV 77.8 L MCH 25.1 L MCHC 32.2 RDW 13.4 Plt Count 147 MPV 9.7 Neut # (Auto) 2.3 Lymph # (Auto) 2.8 [place] # (Auto) 0.3 Eos # (Auto) 0.0 Baso # (Auto) 0.0 Absolute Nucleated RBC 0.00 Nucleated RBC % 0.0 PT 13.4 H INR 1.2 APTT 30.4 Sodium 138 Potassium 3.6 Chloride 103 Carbon Dioxide 23 Anion Gap 12.0 BUN 11 Creatinine 0.4 L Estimated GFR (MDRD) 175 Glucose 267 H Calcium 9.7 Total Bilirubin 0.5 AST 30 ALT 31 Alkaline Phosphatase 96 Troponin I High Sens Total Protein 7.2 Albumin 4.2 Globulin 3.0 Albumin/Globulin Ratio 1.4 Lipase 31 11/22/23 21:43 WBC RBC Hgb Hct MCV MCH MCHC RDW Plt Count MPV Neut # (Auto) Lymph # (Auto) Stafford # (Auto) Eos # (Auto) Baso # (Auto) Absolute Nucleated RBC Nucleated RBC % PT INR APTT Sodium Potassium Chloride Carbon Dioxide Anion Gap BUN Creatinine Estimated GFR (MDRD) Glucose Calcium Total Bilirubin AST ALT Alkaline Phosphatase Troponin I High Sens 3.3 Total Protein Albumin Globulin Albumin/Globulin Ratio Lipase - Rads (name of study) CT head Relevant Findings:: EMP independent interpretation of test, See rad report (I agree with radiology reads of imaging on my independent review of imaging. ), Ot her CTA head/neck Relevant Findings:: EMP independent interpretation of test, See rad report (I agree with radiology reads of imaging on my independent review of imaging. ), Other CXR Relevant Findings:: EMP independent interpretation of test, See rad report (I agree with radiology reads of imaging on my independent review of imaging. ), Other PD Medical Decision Making - ED course ED course: This patients presentation is concerning for acute ischemic stroke, otherwise consider a broad differential including not limited to vessel dissection, hemorrhagic stroke, hemiplegic migraine, conversion disorder, seizure, among others. Reportedly, this was witnessed, making seizure far less likely. I have requested sow farm technician ensure imaging with CTA go through aortic arch to rule out dissection; this would be very likely to catch dissection given involvement of patient's face. She is going immediately to CT scanner, teleneurology is being consulted, and I am obtaining CT head, CT head and neck, chest x-ray, EKG, troponin, CBC, CMP, coags. Giving fluid bolus and closely reassessing. Family is reportedly coming. I spoke with Dr. Zeng of [facility] at 942pm, reviewing case on phone; they will follow and assess as well. Per chart view, patient was seen in April with concern for hemiplegic migraine, which per chart she has noted to have a history of. She has a neurologist. At that time, patient had left-sided numbness and weakness. This does substantially increase the probabiltiy this is note an acute stroke; however, stroke still possible, and work up is still being pursued. I spoke with family () at bedside at 9:50PM roughly. He states patient actually has history of similar episodes since 2020. Today may be worse, however exactly how is not currently claer. 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 Neurology also assessing. As of 10:04PM, I spoke with Dr. Zeng in room on video with family and patient. Patient, spouse and Neurology feel strongly we should give TNK; they have reviewed risks, benefits, and all contraindications. Patient qualifies for TNK. Patient and family aware this may not be a stroke, given hemiplegic migraine history as discussed, however they feel strongly about pursing lytics, fully understanding risks of this. Neurology supports their decision. Accordingly, TNK being ordered. Note CTA delayed due to difficult PIV access, but this is being obtained as soon as possible. TNK 25mg ordered. EKG: Sinus tachycardia without acute ischemia or immediately concerning interval prolongation, on my review. Labs: CBC with no leukocytosis, anemia, thrombocytopenia. INR and PTT within normal limits. CMP with hyperglycemia, creatinine and LFTs within normal limits. Troponin WNL. CT: I agree with radiology reads of imaging on my independent review of imaging, with radiology reads below: -hCT: "FINDINGS: Image quality: Excellent. CSF spaces: Basal cisterns are patent. No extra-axial fluid collections. Ventricles are normal insize and shape. Brain: No midline shift. No intracranial masses or hemorrhage. Jackson-white matter interface is normal. Skull and face: Calvarium and visualized facial bones are intact, without suspicious lesions. Sinuses: Visualized sinuses and mastoids are clear. IMPRESSION: No acute intracranial pathology Above discussed with Joshua Fam MD at 10:06 PM on 11/22/2023. This study fulfills neurological imaging criteria for inclusion or exclusion of acute stroke therapies based on available published neurological imaging guidelines. Reviewed by: Milind Frye MD on 11/22/2023 10:07 PM PDT" -CTA Head/neck: "FINDINGS: Image quality: Diagnostic. HEAD CT: CSF Spaces: Basal cisterns are patent. No extra-axial fluid collections. Ventricles are normal insize and shape. Brain: No significant abnormality is seen for scanning technique. Skull and face: Calvarium and visualized facial bones appear intact, without suspicious lesions. Sinuses: Visualized sinuses and mastoids are clear. HEAD CT ANGIOGRAPHY: Anterior circulation: Intracranial internal carotid arteries are normal in size and flow. The flowwithin the paired anterior cerebral arteries is normal and symmetric. The flow within the middle cerebral arteries is normal and symmetric. The anterior communicating artery is seen. No aneurysmsare seen. Posterior circulation: Visualized portions of the vertebral arteries demonstrate normal caliber, and join to form a normal appearing basilar artery. Flow within the posterior cerebral arteries is normal and symmetric. No aneurysms are seen. NECK CT ANGIOGRAPHY: Carotid system: The great vessels demonstrate a conventional anatomy as they arise from the aortic arch. The origins of the common carotid arteries appear patent. The common carotid arteries demonstrate normal caliber and courses. The bifurcation regions are both widely patent. The internal carotid arteries demonstrate normal calibers and courses. Posterior circulation: The origins of the vertebral arteries both appear widely patent. The more superior extracranial portions of both vertebral arteries also demonstrate normal courses and calibers. They join to form a normal appearing basilar artery. Soft tissues: Visualized neck soft tissues demonstrate no suspicious abnormalities. Stable 1.1 cm left lower lobe solid pulmonary nodule compared with 2023, minimally increased since 2020; rate of growth favors a benign nodule. Bones: No suspicious bony lesions. Visualized cervical spine appears normally aligned. IMPRESSION: No significant intracranial arterial abnormality is seen. No significant abnormality is seen within the arteries of the neck. The estimate of stenosis included in the report of the imaging study was calculated using the NASCETmethod Reviewed by: Milind Frye MD on 11/22/2023 10:49 PM PDT " -CXR: "FINDINGS: Surgical changes and devices: None. Lungs and pleura: No pleural effusions or pneumothorax. Lungs are clear. Mediastinum: Mediastinal contours appear normal. Heart size is normal. Bones and chest wall: No suspicious bony lesions. Overlying soft tissues appear unremarkable. IMPRESSION: No acute cardiopulmonary process. Reviewed by: Milind Frye MD on 11/22/2023 11:27 PM PDT " I spoke with [place] intesivist Dr. Payton at 10:42PM, reviewing case on phone. She kindly accepts transfer. No other rqeuests. I will fly patient. Patient currently stable with mild improvements, no substantial changes. Patient given 10mg IV Labetalol for diastolic BP >110. [facility] being arranged. Patient/family consented for transfer. Patient transferred. Stroke vs. hemiplegic migraine remains most likely at this time. CRITICAL CARE TIME: outside of procedures, I spent 70 minutes assessing, reassessing, resuscitating this patient, speaking with family consultants, and interpreting studies and documentation, in the setting of potential acute ischemic stroke recieving TNK.
[2023-11-22 21:51] LABS: HCT - HEMATOCRIT 38.5 % (37.0-47.0); HGB - HEMOGLOBIN 12.4 g/dL (12.0-16.0); LYMPHOCYTES # (AUTO) 2.8 10^3/uL (1.5-3.5); LYMPHOCYTES % (AUTO) 51.5 %; MEAN CORPUSCULAR HEMOGLOBIN 25.1 pg (27.0-31.0); MEAN CORPUSCULAR HGB CONC 32.2 g/dL (32.0-36.0); MEAN CORPUSCULAR VOLUME 77.8 fL (81.0-99.0); MEAN PLATELET VOLUME 9.7 fL (7.9-10.8); MONOCYTES # (AUTO) 0.3 10^3/uL (0.0-1.0); MONOCYTES % (AUTO) 5.1 %; NEUTROPHILS # (AUTO) 2.3 10^3/uL (1.5-6.6); PLT - PLATELET COUNT 147 10^3/uL (130-450); RED BLOOD COUNT 4.95 10^6/uL (4.20-5.40); RED CELL DISTRIBUTION WIDTH 13.4 % (12.0-15.0); WHITE BLOOD COUNT 5.4 x10^3/uL (4.8-10.8)
[2023-11-22] MEDS ORDERED: iohexoL-300 100 ML VIAL ONE (21:56)
[2023-11-22 21:59] LABS: PARTIAL THROMBOPLASTIN TIME 30.4 secs (24.9-33.3)
[2023-11-22 22:03] LABS: INR 1.2 (0.8-1.2); PT - PROTHROMBIN TIME 13.4 secs (9.9-12.6)
[2023-11-22] MEDS ORDERED: TENECTEPLASE 50 MG/10 ML VIAL IVP ONE (22:05)
[2023-11-22] MEDS: TENECTEPLASE 50 MG/10 ML VIAL IVP STA (22:07)
--- NOTE | 2023-11-22 22:08 | CT Report ---
PROCEDURE: Head W/O Stroke Protocol INDICATIONS: L sided deficits, stroke concern, vs dissection TECHNIQUE: Noncontrast 4.5 mm thick angled axial sections acquired from the foramen magnum to the vertex, with c oronal reformats. For radiation dose reduction, the following was used: automated exposure control, adjustment of mA and/or kV according to patient size. COMPARISON: None. FINDINGS: Image quality: Excellent. CSF spaces: Basal cisterns are patent. No extra-axial fluid collections. Ventricles are normal in size and shape. Brain: No midline shift. No intracranial masses or hemorrhage. Jackson-white matter interface is norm al. Skull and face: Calvarium and visualized facial bones are intact, without suspicious lesions. Sinuses: Visualized sinuses and mastoids are clear. IMPRESSION: No acute intracranial pathology Above discussed with Joshua Fam MD at 10:06 PM on 11/22/2023. This study fulfills neurological imaging criteria for inclusion or exclusion of acute stroke therapie s based on available published neurological imaging guidelines. Reviewed by: Milind Frye MD on 11/22/2023 10:07 PM PDT Approved by: Milind Frye MD on 11/22/2023 10:07 PM PDT Station ID: [id number]
[2023-11-22 22:10] LABS: ALBUMIN 4.2 g/dL (3.2-5.5); ALBUMIN/GLOBULIN RATIO 1.4 (1.0-2.2); BILIRUBIN,TOTAL 0.5 mg/dL (0.2-1.0); CALCIUM 9.7 mg/dL (8.5-10.3); CREATININE 0.4 mg/dL (0.6-1.3); POTASSIUM 3.6 mmol/L (3.5-4.5); TOTAL PROTEIN 7.2 g/dL (6.4-8.9)
[2023-11-22] MEDS: HYDROmorphone 1 MG/ML CARPUJECT IVP STA (22:21)
[2023-11-22] MEDS: SODIUM CHLORIDE 0.9% 1,000 ML IV STA (22:21)
[2023-11-22] MEDS: iohexoL-300 100 ML VIAL IVP ONE (22:48)
--- NOTE | 2023-11-22 22:50 | CT Report ---
PROCEDURE: Angio Head/Neck INDICATIONS: L sided deficits, stroke concern, vs dissection TECHNIQUE: After the administration of intravenous contrast, 1 mm thick sections acquired from the aortic arch t hrough the [place]. 3-dimensional agtorxl-ujzuzuwmg-vbfqkwfetg (MIP) and/or volume renderin g reformats were acquired of the central intracranial vasculature and neck separately. For radiation dose reduction, the following was used: automated exposure control, adjustment of mA and/or kV acco rding to patient size. CONTRAST: OMNI 300, 80mls COMPARISON: 09/29/2023, 09/12/2020 FINDINGS: Image quality: Diagnostic. HEAD CT: CSF Spaces: Basal cisterns are patent. No extra-axial fluid collections. Ventricles are normal in size and shape. Brain: No significant abnormality is seen for scanning technique. Skull and face: Calvarium and visualized facial bones appear intact, without suspicious lesions. Sinuses: Visualized sinuses and mastoids are clear. HEAD CT ANGIOGRAPHY: Anterior circulation: Intracranial internal carotid arteries are normal in size and flow. The flow within the paired anterior cerebral arteries is normal and symmetric. The flow within the middle cer ebral arteries is normal and symmetric. The anterior communicating artery is seen. No aneurysms are seen. Posterior circulation: Visualized portions of the vertebral arteries demonstrate normal caliber, and join to form a normal appearing basilar artery. Flow within the posterior cerebral arteries is norm al and symmetric. No aneurysms are seen. NECK CT ANGIOGRAPHY: Carotid system: The great vessels demonstrate a conventional anatomy as they arise from the aortic a rch. The origins of the common carotid arteries appear patent. The common carotid arteries demonstr ate normal caliber and courses. The bifurcation regions are both widely patent. The internal caroti d arteries demonstrate normal calibers and courses. Posterior circulation: The origins of the vertebral arteries both appear widely patent. The more [place] perior extracranial portions of both vertebral arteries also demonstrate normal courses and calibers. They join to form a normal appearing basilar artery. Soft tissues: Visualized neck soft tissues demonstrate no suspicious abnormalities. Stable 1.1 cm l eft lower lobe solid pulmonary nodule compared with 2023, minimally increased since 2020; rate of leo wth favors a benign nodule. Bones: No suspicious bony lesions. Visualized cervical spine appears normally aligned. IMPRESSION: No significant intracranial arterial abnormality is seen. No significant abnormality is seen within the arteries of the neck. The estimate of stenosis included in the report of the imaging study was calculated using the NASCET method Reviewed by: Milind Frye MD on 11/22/2023 10:49 PM PDT Approved by: Milind Frye MD on 11/22/2023 10:49 PM PDT Station ID: [id number]
[2023-11-22] MEDS ORDERED: LABETALOL 20 MG/4 ML SYRINGE IVP ONE (23:03)
[2023-11-22] MEDS: LABETALOL 20 MG/4 ML SYRINGE IVP STA (23:04)
[2023-11-22 23:23] VITALS: BP 146/96; O2SAT 94
--- NOTE | 2023-11-22 23:29 | XRAY Report ---
PROCEDURE: Chest 1V INDICATIONS: chest pain TECHNIQUE: One view of the chest was acquired. COMPARISON: 09/29/2023, same day head/neck angiogram. FINDINGS: Surgical changes and devices: None. Lungs and pleura: No pleural effusions or pneumothorax. Lungs are clear. Mediastinum: Mediastinal contours appear normal. Heart size is normal. Bones and chest wall: No suspicious bony lesions. Overlying soft tissues appear unremarkable. IMPRESSION: No acute cardiopulmonary process. Reviewed by: Milind Frye MD on 11/22/2023 11:27 PM PDT Approved by: Milind Frye MD on 11/22/2023 11:27 PM PDT Station ID: [id number]
== END 2023-11-22 23:46 | disposition short-term general hospital (02) ==
LOC: EDUNIT# → ED 21:30
DX: R29.818 Other symptoms and signs involving the nervous system (principal); F17.200 Nicotine dependence, unspecified, uncomplicated; Z86.69 Personal history of other diseases of the nervous system and sense organs
CPT/HCPCS: 36415; 37195; 70450; 70496; 70498; 71045; 80053; 83690; 84484; 85025; 85610; 85730; 93005; 96374; 99291; J3101; Q9967

== ENCOUNTER 2023-12-19 17:31 | Outpatient (CLI) | payer OTHER ==
[2023-12-19 17:46] LABS: BILIRUBIN,URINE NEGATIVE (NEGATIVE); GLUCOSE, URINE (UA) 250 mg/dL (NEGATIVE); KETONES,URINE (UA) NEGATIVE (NEGATIVE); LEUKOCYTE ESTERASE, URINE NEGATIVE (NEGATIVE); NITRITE,URINE NEGATIVE (NEGATIVE); OCCULT BLOOD,URINE NEGATIVE (NEGATIVE); PROTEIN,URINE NEGATIVE (NEGATIVE); UROBILINOGEN,URINE 0.2 (NORMAL) E.U./dL (NORMAL)
[2023-12-19 17:49] LABS: CLARITY,URINE HAZY (CLEAR)
[2023-12-19 18:00] LABS: AMORPHOUS SEDIMENT,UR Moderate /LPF; BACTERIA,URINE Moderate /HPF (None Seen); RBC,URINE 0-5 /HPF (0-5); SQUAMOUS EPITHELIAL CELL,UR MOD Squamous (<= Few); WBC,URINE 0-3 /HPF (0-5)
== END 2023-12-19 17:32 | disposition home or self-care (01) ==
LOC: LAB 17:31
PROVIDERS: ATTEND Nurse Practitioner Family
DX: R30.0 Dysuria (principal)
CPT/HCPCS: 81001; 87086